=== PATIENT | male | born 1950 | race Caucasian/White ===

== ENCOUNTER 2022-11-24 15:41 | Emergency (ER) | payer MEDICARE, SELFPAY ==
[2022-11-24 15:44] VITALS: BMI 33.3
[2022-11-24 15:48] VITALS: BP 133/99; PULSE 99; TEMP 37.2; O2SAT 97
--- NOTE | 2022-11-24 16:34 | PC.NURSE ---
pt reports no pain presently while laying down, but pain returns when he tries to sit forward
[2022-11-24 17:47] LABS: Basophils Absolute Auto 0.1 10^3/uL (0.0-0.1); Basophils Percent Auto 0.8 % (0.2-2.0); Eosinophils Absolute Auto 0.1 10^3/uL (0.0-0.7); Eosinophils Percent Auto 1.1 % (0.9-7.0); Hematocrit 41.4 % (42.0-54.0); Hemoglobin 13.5 g/dL (14.0-18.0); Immature Granulocytes Abs Auto 0.03 10^3/uL (0.00-0.03); Immature Granulocytes Pct Auto 0.5 % (0.0-0.5); Lymphocytes Absolute Auto 0.8 10^3/uL (1.2-3.8); Lymphocytes Percent Auto 12.3 % (20.5-60.0); Mean Corpuscular HGB Conc 32.6 g/dL (29.9-35.2); Mean Corpuscular Volume 79.8 fL (80.0-94.0); Mean Platelet Volume 10.1 fL (9.5-13.5); Monocytes Absolute Auto 0.6 10^3/uL (0.3-0.8); Monocytes Percent Auto 9.5 % (1.7-12.0); Neutrophils Percent Auto 75.8 % (43.0-75.0); Platelet Count 207 10^3/uL (150-450); Red Blood Count 5.19 10^6/uL (4.70-6.10); Red Cell Distribution Width 14.6 % (11.0-15.0); White Blood Count 6.6 10^3/uL (4.0-11.0)
--- NOTE | 2022-11-24 17:54 | ED_ITS ---
Documented by User: Yanet Alcala 11/24/22 21:20 HPI - General Adult General Chief complaint: Nausea/Vomiting/Diarrhea Stated complaint: ABDOMINAL PAIN Time Seen by Provider: 11/24/22 17:54 Source: patient Mode of arrival: ambulance Limitations: no limitations History of Present Illness HPI narrative: 72 year old male presents to the ED for epigastric pain, nausea. Onset was yesterday. Denies fever, chills, injury, weakness, diarrhea. Denies urinary sx. Denies CP, cough, SOB. His sx have resolved. Denies pain currently. His last BM was yesterday. Location: Reports abdomen Radiation: Reports non-radiation Related Data Previous Rx's Medication Instructions Recorded cephalexin 500 mg capsule 500 mg PO BID 7 days #14 caps 11/24/22 ondansetron 4 mg disintegrating 4 mg PO Q8H PRN nausea and 11/24/22 tablet vomiting 4 days #10 tabs Allergies Allergy/AdvReac Type Severity Reaction Status Date / Time No Known Drug Allergies Allergy Verified 11/24/22 15:46 Review of Systems ROS Constitutional Denies: fever, chills or fatigue Ears, nose, mouth, and throat Denies: throat pain Cardiovascular Denies: chest pain Respiratory Denies: shortness of breath or cough Gastrointestinal Reports: abdominal pain; Denies: vomiting, diarrhea or constipation Genitourinary Denies: painful urination, urinary frequency, urinary urgency, blood in urine or difficulty urinating Integumentary/Breast Denies: rash or itching PFSH PFSH Medical History Exam Constitutional Vital Signs - 24 hr 11/24/22 15:48 11/24/22 19:12 Temperature 99 F 99 F Pulse Rate 99 H 95 H Respiratory Rate 20 Blood Pressure 133/99 H 129/89 H Pulse Oximetry 97 96 Common normals: no apparent distress and oriented x3 General appearance: cooperative, comfortable and well developed; not in distress and not ill appearing Respiratory Common normals: normal respiratory effort and clear to auscultation bilaterally Cardio Rhythm: regular rhythm GI Common normals: Normal to inspection, nondistended, normoactive bowel sounds present, soft to palpation and non-tender Inspection: normal to inspection and visible herniation (umbilical) Auscultation: normoactive bowel sounds Palpation: soft; not firm, non-tender, no guarding and not rigid Common normals: no CVA tenderness Bladder/kidney exam: no catheter in place Extremity Common normals: full ROM Neuro Common normals: oriented x3 Sensorium/orientation: awake and alert Skin Common normals: no rashes or lesions noted, no wounds, skin turgor normal and no jaundice Course Vital Signs Vital signs: Vital Signs Temperature 99 F 11/24/22 15:48 Pulse Rate 99 H 11/24/22 15:48 Blood Pressure 133/99 H 11/24/22 15:48 Pulse Oximetry 97 11/24/22 15:48 Temperature 99 F 11/24/22 19:12 Pulse Rate 95 H 11/24/22 19:12 Respiratory Rate 20 11/24/22 19:12 Blood Pressure 129/89 H 11/24/22 19:12 Pulse Oximetry 96 11/24/22 19:12 Medical Decision Making MDM Narrative Medical decision making narrative: He reported his abd pain and nausea had improved prior to coming to the ED. CBC, CMP, urinalysis, lipase were completed. Urinalysis showed infection; culture is pending. WBC count was 6.6, total bilirubin was 1.9. He was given IV antibiotics. CT scan of the abdomen was abnormal; findings were discussed with the patient and he was given a copy of his CT report. He is aware of the gallstones, kidney stones, hepatomegaly, adrenal lesions, renal lesion, umbilical hernia, and posterior osteophytes noted on the CT scan. Prescriptions were provided for Keflex and Zofran. He was anxious to be discharged home and r equested to be discharged while results were pending. His lipase was pending which he was aware was pending. He was encouraged to return at anytime for further evaluation and treatment or if his condition worsens. Follow up with pcp for a recheck, further evaluation and treatment. Lab Data Lab results reviewed: Yes I reviewed the patient's lab results Labs: Lab Results 11/24/22 11/24/22 11/24/22 Range/Units 14:20 16:20 17:35 WBC 6.6 (4.0-11.0) 10^3/uL RBC 5.19 (4.70-6.10) 10^6/uL Hgb 13.5 L (14.0-18.0) g/dL Hct 41.4 L (42.0-54.0) % MCV 79.8 L (80.0-94.0) fL MCH 26.0 (25.9-34.0) pg MCHC 32.6 (29.9-35.2) g/dL RDW 14.6 (11.0-15.0) % Plt Count 207 (150-450) 10^3/uL MPV 10.1 (9.5-13.5) fL Neut % (Auto) 75.8 H (43.0-75.0) % Lymph % (Auto) 12.3 L (20.5-60.0) % [place] % (Auto) 9.5 (1.7-12.0) % Eos % (Auto) 1.1 (0.9-7.0) % Baso % (Auto) 0.8 (0.2-2.0) % Neut # (Auto) 5.0 (1.4-6.5) 10^3/uL Lymph # (Auto) 0.8 L (1.2-3.8) 10^3/uL [place] # (Auto) 0.6 (0.3-0.8) 10^3/uL Eos # (Auto) 0.1 (0.0-0.7) 10^3/uL Baso # (Auto) 0.1 (0.0-0.1) 10^3/uL Sodium 132 L (136-145) mmol/L Potassium 4.2 (3.5-5.1) mmol/L Chloride 99 (98-107) mmol/L Carbon Dioxide 21.9 (21.0-32.0) mmol/L Anion Gap 15.3 BUN 21.0 H (7.0-18.0) mg/dL Creatinine 1.20 (0.70-1.30) mg/dL Est GFR ( Amer) >60 (>=60) Est GFR (Non-Af Amer) 60 (>=60) BUN/Creatinine Ratio 17.5 Glucose 105 (74-106) mg/dL Calcium 8.9 (8.5-10.1) mg/dL Total Bilirubin 1.9 H (0.2-1.0) mg/dL AST 64 H (15-37) U/L ALT 63 (16-63) U/L Total Protein 7.7 (6.4-8.2) g/dL Albumin 3.1 L (3.4-5.0) g/dL Globulin 4.6 g/dL Albumin/Globulin Ratio 0.7 Lipase 1093.0 H* (73.0-393.0) U/L Urine Color Brown A (YELLOW) Urine Clarity Clear (CLEAR) Urine pH 5.5 (5.0-9.0) Ur Specific [place] 1.020 (1.005-1.025) Urine Protein 30 A (NEG/TRACE) mg/dL Urine Glucose (UA) Negative (NEGATIVE) mg/dL Urine Ketones Negative (NEGATIVE) mg/dL Urine Occult Blood Moderate A (NEGATIVE) Urine Nitrite Positive A (NEGATIVE) Urine Bilirubin Negative (NEGATIVE) Urine Urobilinogen 2.0 A (0.2-1.0) EU/dL Ur Leukocyte Esterase Large A (NEGATIVE) Urine RBC 5-10 A (0-2) #/HPF Urine WBC >100 A (NONE SEEN) #/HPF Ur Squamous Epith Cells None seen (NONE/RARE) #/LPF Ur Culture Indicated? Yes Imaging Data CT scan - abdomen: Radiologist's impression: Procedure: CT abdomen pelvis wo con EXAM: CT SCAN OF THE ABDOMEN AND PELVIS WITHOUT IV CONTRAST DATE OF EXAM: 11/24/2022 6:58 PM EDT HISTORY: Pain in a 72-year-old male COMPARISON: None. TECHNIQUE: CT examination of the abdomen and pelvis with sagittal and coronal reformations was performed without intravenous contrast. CT dose lowering techniques were used, to include: automated exposure control, adjustment for patient size, and/or use of iterative reconstruction. CONTRAST: None. Note: The exam is limited because some types of pathology may not be adequately demonstrated due to lack of contrast enhancement. FINDINGS: Lower Chest: The heart measures upper limits of normal with radiopaque stents and coronary artery calcification. Free Air: None. Liver: The liver is enlarged. Evaluation limited due to lack of IV contrast. Gallbladder: The gallbladder appears to be bilobed. There are stones seen within the neck of the gallbladder. The superior fundus and/or phrygian cap is edematous. Common Bile Duct: Normal Pancreas: Normal Spleen: Normal Adrenal Glands: Right: There is a fat attenuating nodule with calcification seen involving the right adrenal gland that measures 39 x 41 mm. Left: Fat attenuating adrenal gland is seen involving the medial limb measuring 15 x 17 mm. Kidneys: Right Kidney: There is a fat attenuating mass seen within the cortex of the right kidney that measures approximately 8 mm. Right Ureter: Portions of the right ureter which are visualized measure within normal. Left Kidney: There are multiple stones seen in the lower pole of the left kidney with the largest measuring 15.6 mm. Left Ureter: There is an extrarenal pelvis. The mid to distal ureter measures within normal limits. GI Tract: Stomach: Decompressed Small Bowel: Normal Appendix: Normal on axial image 93 series 3 Large Bowel: Normal Mesentery/Peritoneum: Normal Vasculature: Normal Lymph Nodes: Normal Abdominal Wall: There is a fat filled umbilical hernia with abdominal wall defect which measures approximately 34 mm. The hernia itself measures 94.5 mm x 92.4 mm. Bladder: Decompressed Reproductive: Normal Musculoskeletal: Osseous structures demonstrate degenerative change with flowing syndesmophytes. There are posterior osteophytes which cause significant effacement of the spinal canal with further evaluation limited due to lack of IV contrast. Free Fluid: None. IMPRESSION: 1. Cholelithiasis within the neck of a bilobed gallbladder with the dome which is edematous seen best on axial image 38 of series 3 with pericholecystic free fluid in mild prominence of the gallbladder wall. However, if clinically indicated, RUQ ultrasound or nuclear medicine hepatobiliary scan would help better delineate for acute cholecystitis. 2. Large nonobstructing staghorn like calcifications within the left kidney with an extrarenal pelvis. 3. 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 4. Diverticulosis. No CT evidence for acute diverticulitis. 5. Hepatomegaly. Please correlate with patient's LFTs. 6. Bilateral adrenal gland adenomas with the one on the right measuring up to 41 mm. 7. Fat filled umbilical hernia 8. Posterior osteophytes which cause significant effacement of the spinal canal with further evaluation limited due to lack of IV contrast. This does not appear to be acute. However, if patient is complaining of any back pain, MRI would help better delineate to further characterize disc pathology and spinal canal pathology. Electronically authenticated by: JUAREZ LOMAS Date: 11/24/2022 20:28 Discharge Plan Discharge Chief Complaint: Nausea/Vomiting/Diarrhea Clinical Impression: Hernia, umbilical, Abnormal CT of the abdomen, Gallstones, Acute UTI (urinary tract infection), Abdominal pain, Hepatomegaly Patient Disposition: Home, Self-Care Time of Disposition Decision: 21:01 Condition: Good Mode of Transportation: Private Vehicle Prescriptions / Home Meds: New cephalexin 500 mg capsule 500 mg PO BID 7 Days Qty: 14 0RF ondansetron 4 mg tablet,disintegrating 4 mg PO Q8H PRN (Reason: nausea and vomiting) 4 Days Qty: 10 0RF Instructions: Gallstones (ED), Kidney Stones (ED), Urinary Tract Infection in Men (ED), Umbilical Hernia (ED), Acute Abdominal Pain (ED) Additional Instructions: Follow up with your family physician within the next few days for a recheck, further evaluation and treatment. If your condition worsens return to the ER for a recheck. Stand Alone Forms: Portal Instructions Referrals: Fabio Herrera MD [Primary Care Provider] - 11/27/22 Discharge Date/Time: 11/24/22 21:17 Documented by User: Kike Beard MD 11/28/22 20:45 HPI - General Adult General Chief complaint: Nausea/Vomiting/Diarrhea Stated complaint: ABDOMINAL PAIN Time Seen by Provider: 11/24/22 17:54 Related Data Previous Rx's Medication Instructions Recorded cephalexin 500 mg capsule 500 mg PO BID 7 days #14 caps 11/24/22 ondansetron 4 mg disintegrating 4 mg PO Q8H PRN nausea and 11/24/22 tablet vomiting 4 days #10 tabs Allergies Allergy/AdvReac Type Severity Reaction Status Date / Time No Known Drug Allergies Allergy Verified 11/24/22 15:46 PFSH PFSH Medical History Exam Constitutional Vital Signs - 24 hr 11/24/22 15:48 11/24/22 19:12 Temperature 99 F 99 F Pulse Rate 99 H 95 H Respiratory Rate 20 Blood Pressure 133/99 H 129/89 H Pulse Oximetry 97 96 Course Vital Signs Vital signs: Vital Signs Temperature 99 F 11/24/22 15:48 Pulse Rate 99 H 11/24/22 15:48 Blood Pressure 133/99 H 11/24/22 15:48 Pulse Oximetry 97 11/24/22 15:48 Temperature 99 F 11/24/22 19:12 Pulse Rate 95 H 11/24/22 19:12 Respiratory Rate 20 11/24/22 19:12 Blood Pressure 129/89 H 11/24/22 19:12 Pulse Oximetry 96 11/24/22 19:12 Medical Decision Making Lab Data Labs: Lab Results 11/24/22 11/24/22 11/24/22 Range/Units 14:20 16:20 17:35 WBC 6.6 (4.0-11.0) 10^3/uL RBC 5.19 (4.70-6.10) 10^6/uL Hgb 13.5 L (14.0-18.0) g/dL Hct 41.4 L (42.0-54.0) % MCV 79.8 L (80.0-94.0) fL MCH 26.0 (25.9-34.0) pg MCHC 32.6 (29.9-35.2) g/dL RDW 14.6 (11.0-15.0) % Plt Count 207 (150-450) 10^3/uL MPV 10.1 (9.5-13.5) fL Neut % (Auto) 75.8 H (43.0-75.0) % Lymph % (Auto) 12.3 L (20.5-60.0) % [place] % (Auto) 9.5 (1.7-12.0) % Eos % (Auto) 1.1 (0.9-7.0) % Baso % (Auto) 0.8 (0.2-2.0) % Neut # (Auto) 5.0 (1.4-6.5) 10^3/uL Lymph # (Auto) 0.8 L (1.2-3.8) 10^3/uL [place] # (Auto) 0.6 (0.3-0.8) 10^3/uL Eos # (Auto) 0.1 (0.0-0.7) 10^3/uL Baso # (Auto) 0.1 (0.0-0.1) 10^3/uL Sodium 132 L (136-145) mmol/L Potassium 4.2 (3.5-5.1) mmol/L Chloride 99 (98-107) mmol/L Carbon Dioxide 21.9 (21.0-32.0) mmol/L Anion Gap 15.3 BUN 21.0 H (7.0-18.0) mg/dL Creatinine 1.20 (0.70-1.30) mg/dL Est GFR ( Amer) >60 (>=60) Est GFR (Non-Af Amer) 60 (>=60) BUN/Creatinine Ratio 17.5 Glucose 105 (74-106) mg/dL Calcium 8.9 (8.5-10.1) mg/dL Total Bilirubin 1.9 H (0.2-1.0) mg/dL AST 64 H (15-37) U/L ALT 63 (16-63) U/L Total Protein 7.7 (6.4-8.2) g/dL Albumin 3.1 L (3.4-5.0) g/dL Globulin 4.6 g/dL Albumin/Globulin Ratio 0.7 Lipase 1093.0 H* (73.0-393.0) U/L Urine Color Brown A (YELLOW) Urine Clarity Clear (CLEAR) Urine pH 5.5 (5.0-9.0) Ur Specific [place] 1.020 (1.005-1.025) Urine Protein 30 A (NEG/TRACE) mg/dL Urine Glucose (UA) Negative (NEGATIVE) mg/dL Urine Ketones Negative (NEGATIVE) mg/dL Urine Occult Blood Moderate A (NEGATIVE) Urine Nitrite Positive A (NEGATIVE) Urine Bilirubin Negative (NEGATIVE) Urine Urobilinogen 2.0 A (0.2-1.0) EU/dL Ur Leukocyte Esterase Large A (NEGATIVE) Urine RBC 5-10 A (0-2) #/HPF Urine WBC >100 A (NONE SEEN) #/HPF Ur Squamous Epith Cells None seen (NONE/RARE) #/LPF Ur Culture Indicated? Yes Critical Care Time Critical Care Time Attestation: I, Dr Beard, have reviewed the above progress note and course of action in the ER; agree with the above. I have personally seen and evaluated this patient, gone over history and physical, and discussed disposition and treatment plan with the patient. Discharge Plan Discharge Chief Complaint: Nausea/Vomiting/Diarrhea Clinical Impression: Hernia, umbilical, Abnormal CT of the abdomen, Gallstones, Acute UTI (urinary tract infection), Abdominal pain, Hepatomegaly Patient Disposition: Home, Self-Care Time of Disposition Decision: 21:01 Condition: Good Mode of Transportation: Private Vehicle Prescriptions / Home Meds: New cephalexin 500 mg capsule 500 mg PO BID 7 Days Qty: 14 0RF ondansetron 4 mg tablet,disintegrating 4 mg PO Q8H PRN (Reason: nausea and vomiting) 4 Days Qty: 10 0RF Instructions: Gallstones (ED), Kidney Stones (ED), Urinary Tract Infection in Men (ED), Umbilical Hernia (ED), Acute Abdominal Pain (ED) Additional Instructions: Follow up with your family physician within the next few days for a recheck, further evaluation and treatment. If your condition worsens return to the ER for a recheck. Stand Alone Forms: Portal Instructions Referrals: Fabio Herrera MD [Primary Care Provider] - 11/27/22 Discharge Date/Time: 11/24/22 21:17
[2022-11-24 17:56] LABS: Alanine Aminotransferase 63 U/L (16-63); Albumin Globulin Ratio 0.7; Albumin Level 3.1 g/dL (3.4-5.0); Alkaline Phosphatase 123 U/L (46-116); Anion Gap 15.3; Aspartate Amino Transferase 64 U/L (15-37); BUN Creatinine Ratio 17.5; Bilirubin Total 1.9 mg/dL (0.2-1.0); Calcium 8.9 mg/dL (8.5-10.1); Carbon Dioxide 21.9 mmol/L (21.0-32.0); Chloride 99 mmol/L (98-107); Estimated GFR (African America >60 (>=60); Estimated GFR (Non-African Ame 60 (>=60); Globulin 4.6 g/dL; Glucose 105 mg/dL (74-106); Potassium 4.2 mmol/L (3.5-5.1); Sodium 132 mmol/L (136-145); Total Protein 7.7 g/dL (6.4-8.2)
[2022-11-24 18:12] LABS: Bilirubin Urine NEGATIVE (NEGATIVE); Blood Urine MODERATE (NEGATIVE); Clarity Urine CLEAR (CLEAR); Color Urine BROWN (YELLOW); Glucose Urine UA NEGATIVE (NEGATIVE); Ketones Urine NEGATIVE (NEGATIVE); Leukocyte Esterase Urine LARGE (NEGATIVE); Nitrite Urine POSITIVE (NEGATIVE); Protein Urine 30 mg/dL (NEG/TRACE); pH Urine 5.5 (5.0-9.0)
[2022-11-24 18:19] LABS: WBC Urine >100 #/HPF (NONE SEEN)
[2022-11-24 18:20] LABS: Bacteria Urine MODERATE #/HPF (NONE SEEN); Cast Seen? NONE SEEN #/LPF (NONE SEEN); Crystals Seen? None Seen #/HPF (None Seen); Mucus Urine NONE SEEN (NONE SEEN); Squamous Epithelial Cell Urine NONE SEEN #/LPF (NONE/RARE); Urine Culture Indicated YES
--- NOTE | 2022-11-24 18:42 | CT_ITS ---
The [address] [address] Patient Name: JOSE PETERS MRN: [id number] date: 1950 Sex: M Assigned Patient Location: ER Current Patient Location: .[facility] Accession/Order Number: [id number] Exam Date: 11/24/2022 18:58 Report Date: 11/24/2022 20:28 At the request of: JAMEY AMARO Procedure: CT abdomen pelvis wo con EXAM: CT SCAN OF THE ABDOMEN AND PELVIS WITHOUT IV CONTRAST DATE OF EXAM: 11/24/2022 6:58 PM EDT HISTORY: Pain in a 72-year-old male COMPARISON: None. TECHNIQUE: CT examination of the abdomen and pelvis with sagittal and coronal reformations was performed without intravenous contrast. CT dose lowering techniques were used, to include: automated exposure control, adjustment for patient size, and/or use of iterative reconstruction. CONTRAST: None. Note: The exam is limited because some types of pathology may not be adequately demonstrated due to lack of contrast enhancement. FINDINGS: Lower Chest: The heart measures upper limits of normal with radiopaque stents and coronary artery calcification. Free Air: None. Liver: The liver is enlarged. Evaluation limited due to lack of IV contrast. Gallbladder: The gallbladder appears to be bilobed. There are stones seen within the neck of the gallbladder. The superior fundus and/or phrygian cap is edematous. Common Bile Duct: Normal Pancreas: Normal Spleen: Normal Adrenal Glands: Right: There is a fat attenuating nodule with calcification seen involving the right adrenal gland that measures 39 x 41 mm. Left: Fat attenuating adrenal gland is seen involving the medial limb measuring 15 x 17 mm. Kidneys: Right Kidney: There is a fat attenuating mass seen within the cortex of the right kidney that measures approximately 8 mm. Right Ureter: Portions of the right ureter which are visualized measure within normal. Left Kidney: There are multiple stones seen in the lower pole of the left kidney with the largest measuring 15.6 mm. Left Ureter: There is an extrarenal pelvis. The mid to distal ureter measures within normal limits. GI Tract: Stomach: Decompressed Small Bowel: Normal Appendix: Normal on axial image 93 series 3 Large Bowel: Normal Mesentery/Peritoneum: Normal Vasculature: Normal Lymph Nodes: Normal Abdominal Wall: There is a fat filled umbilical hernia with abdominal wall defect which measures approximately 34 mm. The hernia itself measures 94.5 mm x 92.4 mm. Bladder: Decompressed Reproductive: Normal Musculoskeletal: Osseous structures demonstrate degenerative change with flowing syndesmophytes. There are posterior osteophytes which cause significant effacement of the spinal canal with further evaluation limited due to lack of IV contrast. Free Fluid: None. IMPRESSION: 1. Cholelithiasis within the neck of a bilobed gallbladder with the dome which is edematous seen best on axial image 38 of series 3 with pericholecystic free fluid in mild prominence of the gallbladder wall. However, if clinically indicated, RUQ ultrasound or nuclear medicine hepatobiliary scan would help better delineate for acute cholecystitis. 2. Large nonobstructing staghorn like calcifications within the left kidney with an extrarenal pelvis. 3. 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 4. Diverticulosis. No CT evidence for acute diverticulitis. 5. Hepatomegaly. Please correlate with patient's LFTs. 6. Bilateral adrenal gland adenomas with the one on the right measuring up to 41 mm. 7. Fat filled umbilical hernia 8. Posterior osteophytes which cause significant effacement of the spinal canal with further evaluation limited due to lack of IV contrast. This does not appear to be acute. However, if patient is complaining of any back pain, MRI would help better delineate to further characterize disc pathology and spinal canal pathology. Electronically authenticated by: JUAREZ LOMAS Date: 11/24/2022 20:28
[2022-11-24 19:12] VITALS: BP 129/89; PULSE 95; RESP 20; TEMP 37.2; O2SAT 96
[2022-11-24] MEDS: CEFTRIAXONE 1 MG in 0.9 % SODIUM CHLORIDE 50 ML 100 MG IV (20:15)
== END 2022-11-24 21:17 | disposition home or self-care (01) ==
PROVIDERS: Emergency Medicine; Nurse Practitioner Family; Emergency Provider Internal Medicine; PCP Family Medicine
DX: N39.0 Urinary tract infection, site not specified (principal); K42.9 Umbilical hernia without obstruction or gangrene; R10.9 Unspecified abdominal pain; R16.0 Hepatomegaly, not elsewhere classified; R93.5 Abnormal findings on diagnostic imaging of other abdominal regions, including retroperitoneum; K80.20 Calculus of gallbladder without cholecystitis without obstruction
CPT/HCPCS: 36415; 74176; 80053; 81001; 81003; 83690; 85025; 87086; 87150; 87186; 96365; 99285

== ENCOUNTER 2023-08-26 08:01 | Emergency (ER) | payer MEDICARE, SELFPAY ==
[2023-08-26] VITALS (28 sets, daily range): BP systolic 118–145; BP diastolic 74–112; PULSE 76–134; RESP 17–34; TEMP 36.7; O2SAT 90–98; BMI 38.3
--- NOTE | 2023-08-26 08:13 | ECG_ITS ---
The [facility] Test Date: 2023-08-26 Pat Name: JOSE PETERS Department: Room: - Gender: Male Spudder: : 1950 Requested By: HOLA VILLAFUERTE Order Number: [id number] Reading MD: HOLA VILLAFUERTE Measurements Intervals [place] Rate: 133 P: [id number] PA: -[id number] QRS: 270 QRSD: 76 T: 30 QT: 296 QTc: 374 Interpretive Statements 20844 Atrial fibrillation with rapid ventricular response 3633 Inferior myocardial infarction, probably old [id number] depression, probably digitalis effect 5120 Possible right ventricular hypertrophy 8003 Consistent with pulmonary disease 9150 abnormal ECG Compared to ECG 09/20/2022 08:40:45 ST (T wave) deviation now present Left-axis deviation no longer present Myocardial infarct finding still present Electronically Signed On 08-28-2023 5:57:17 EST by HOLA VILLAFUERTE
--- NOTE | 2023-08-26 08:32 | ED_ITS ---
HPI - Nausea/Vomiting/Diarrhea General Chief complaint: Nausea/Vomiting/Diarrhea Stated complaint: nausea and vomit Time Seen by Provider: 08/26/23 08:32 Source: patient Mode of arrival: walk-in Limitations: no limitations History of Present Illness HPI Narrative: Patient started with GI symptoms yesterday. He states he has had some much nausea and vomiting that he can take his medication. He is not running a fever at home that he is aware of. He has not seen blood in his stool or in the vomitus. Patient states that his brother had the exact same symptoms several days ago and he indeed was at his house. Prior to that time his brother got it from several other friends were visiting. This patient has not been on any antibiotics. He has no travel history. He has never had upper or lower endoscopy. He has not had fever shakes or chills. He had some runny nose sore throat before symptoms started but he says he always has those. He does not use alcoholic beverages or tobacco products. Related Data Previous Rx's Medication Instructions Recorded cephalexin 500 mg capsule 500 mg PO BID 7 days #14 caps 11/24/22 ondansetron 4 mg disintegrating 4 mg PO Q8H PRN nausea and 11/24/22 tablet vomiting 4 days #10 tabs Allergies Allergy/AdvReac Type Severity Reaction Status Date / Time No Known Drug Allergies Allergy Verified 08/26/23 08:45 [facility] Medical History Social History Smoking status: Never smoker Exam Narrative Exam Narrative: OA alert very no obvious distress. Pulse oximetry is 96%. His skin and integument are normal with no pallor no diaphoresis or clamminess. Lungs do not have any cough congestion or labored respiratory effort. He has no severe abdominal pain just the nausea and the diarrhea. He ambulates and neurological examination is normal. Constitutional Vital Signs, click to edit/add: Last Vital Signs Temp 98.1 F 08/26/23 08:07 Pulse 103 H 08/26/23 10:01 Resp 31 H 08/26/23 10:01 BP 121/81 08/26/23 10:01 Pulse Ox 96 08/26/23 10:01 O2 Del Method Room Air 08/26/23 08:19 Course Vital Signs Vital signs: Vital Signs Temperature 98.1 F 08/26/23 08:07 Pulse Rate 76 08/26/23 08:07 Respiratory Rate 18 08/26/23 08:07 Blood Pressure 123/101 H 08/26/23 08:07 Pulse Oximetry 94 L 08/26/23 08:07 Temperature 98.1 F 08/26/23 08:07 Pulse Rate 103 H 08/26/23 10:01 Respiratory Rate 31 H 08/26/23 10:01 Blood Pressure 121/81 08/26/23 10:01 Pulse Oximetry 96 08/26/23 10:01 Oxygen Delivery Method Room Air 08/26/23 08:19 MDM - Nausea/Vomiting/Diarrhea MDM Narrative Medical decision making narrative: Based on the patient's 6 episodes of diarrhea and fluid loss we will give him intravenous hydration, 2 L were given he tolerated very well. He has not had any more diarrhea while here in the emergency room. He feels substantially better. Lab Data Labs: Lab Results 08/26/23 08/26/23 Range/Units 08:15 08:53 WBC 8.1 (4.0-11.0) 10^3/uL RBC 5.78 (4.70-6.10) 10^6/uL Hgb 14.9 (14.0-18.0) g/dL Hct 47.4 (42.0-54.0) % MCV 82.0 (80.0-94.0) fL MCH 25.8 L (25.9-34.0) pg MCHC 31.4 (29.9-35.2) g/dL RDW 13.8 (11.0-15.0) % Plt Count 269 (150-450) 10^3/uL MPV 8.9 L (9.5-13.5) fL Neut % (Auto) 76.3 H (43.0-75.0) % Lymph % (Auto) 12.9 L (20.5-60.0) % [place] % (Auto) 8.0 (1.7-12.0) % Eos % (Auto) 1.7 (0.9-7.0) % Baso % (Auto) 0.7 (0.2-2.0) % Neut # (Auto) 6.2 (1.4-6.5) 10^3/uL Lymph # (Auto) 1.1 L (1.2-3.8) 10^3/uL [place]vier # (Auto) 0.7 (0.3-0.8) 10^3/uL Eos # (Auto) 0.1 (0.0-0.7) 10^3/uL Baso # (Auto) 0.1 (0.0-0.1) 10^3/uL Abs Immat Gran (auto) 0.03 (0.00-0.03) 10^3/uL Imm/Tot Granulo (auto) 0.4 (0.0-0.5) % Sodium 139 (136-145) mmol/L Potassium 3.8 (3.5-5.1) mmol/L Chloride 101 (98-107) mmol/L Carbon Dioxide 25.7 (21.0-32.0) mmol/L Anion Gap 16.1 BUN 20.0 H (7.0-18.0) mg/dL Creatinine 1.26 (0.70-1.30) mg/dL Est GFR ( Amer) >60 (>=60) Est GFR (Non-Af Amer) 56 L (>=60) BUN/Creatinine Ratio 15.9 Glucose 117 H (74-106) mg/dL Calcium 9.0 (8.5-10.1) mg/dL Total Bilirubin 1.8 H (0.2-1.0) mg/dL AST 32 (15-37) U/L ALT 24 (16-63) U/L Alkaline Phosphatase 87 (46-116) U/L Total Protein 8.3 H (6.4-8.2) g/dL Albumin 3.7 (3.4-5.0) g/dL Globulin 4.6 g/dL Albumin/Globulin Ratio 0.8 SARS-CoV-2 Ag (CV2AG) Negative (NEGATIVE) Discharge Plan Discharge Chief Complaint: Nausea/Vomiting/Diarrhea Clinical Impression: Gastroenteritis Patient Disposition: Home, Self-Care Time of Disposition Decision: 11:01 Prescriptions / Home Meds: No Action cephalexin 500 mg capsule 500 mg PO BID 7 Days Qty: 14 0RF ondansetron 4 mg tablet,disintegrating 4 mg PO Q8H PRN (Reason: nausea and vomiting) 4 Days Qty: 10 0RF Additional Instructions: May use 2 or 3 doses of Imodium for 2 days. Take clear fluids only for the next 24 hours then slowly advance diet. May use Zofran for nausea. Return if worse Referrals: Fabio Herrera MD [Primary Care Provider] - 1 week Stand Alone Forms: Portal Instructions
[2023-08-26] MEDS: 0.9 % SODIUM CHLORIDE 1,000 ML 999 ML IV (08:41)
[2023-08-26] MEDS: ONDANSETRON PF 4 MG/2 ML VIAL IV (08:41)
[2023-08-26 08:48] LABS: Basophils Absolute Auto 0.1 10^3/uL (0.0-0.1); Basophils Percent Auto 0.7 % (0.2-2.0); Eosinophils Absolute Auto 0.1 10^3/uL (0.0-0.7); Eosinophils Percent Auto 1.7 % (0.9-7.0); Hematocrit 47.4 % (42.0-54.0); Hemoglobin 14.9 g/dL (14.0-18.0); Immature Granulocytes Abs Auto 0.03 10^3/uL (0.00-0.03); Immature Granulocytes Pct Auto 0.4 % (0.0-0.5); Lymphocytes Absolute Auto 1.1 10^3/uL (1.2-3.8); Lymphocytes Percent Auto 12.9 % (20.5-60.0); Mean Corpuscular HGB Conc 31.4 g/dL (29.9-35.2); Mean Corpuscular Hemoglobin 25.8 pg (25.9-34.0); Mean Platelet Volume 8.9 fL (9.5-13.5); Monocytes Absolute Auto 0.7 10^3/uL (0.3-0.8); Neutrophils Absolute Auto 6.2 10^3/uL (1.4-6.5); Neutrophils Percent Auto 76.3 % (43.0-75.0); Platelet Count 269 10^3/uL (150-450); Red Blood Count 5.78 10^6/uL (4.70-6.10); Red Cell Distribution Width 13.8 % (11.0-15.0); White Blood Count 8.1 10^3/uL (4.0-11.0)
[2023-08-26 09:01] LABS: Alanine Aminotransferase 24 U/L (16-63); Albumin Globulin Ratio 0.8; Albumin Level 3.7 g/dL (3.4-5.0); Alkaline Phosphatase 87 U/L (46-116); Anion Gap 16.1; Aspartate Amino Transferase 32 U/L (15-37); BUN Creatinine Ratio 15.9; Bilirubin Total 1.8 mg/dL (0.2-1.0); Carbon Dioxide 25.7 mmol/L (21.0-32.0); Chloride 101 mmol/L (98-107); Estimated GFR (African America >60 (>=60); Estimated GFR (Non-African Ame 56 (>=60); Globulin 4.6 g/dL; Glucose 117 mg/dL (74-106); Potassium 3.8 mmol/L (3.5-5.1); Sodium 139 mmol/L (136-145); Total Protein 8.3 g/dL (6.4-8.2)
[2023-08-26 09:15] LABS: SARS-CoV-2 Ag NEGATIVE (NEGATIVE)
[2023-08-26] MEDS: 0.9 % SODIUM CHLORIDE 1,000 ML 1000 ML IV (09:38)
== END 2023-08-26 11:10 | disposition home or self-care (01) ==
PROVIDERS: Emergency Provider Emergency Medicine Emergency Medical Services; PCP Family Medicine
DX: K52.9 Noninfective gastroenteritis and colitis, unspecified (principal); Z20.822 Contact with and (suspected) exposure to COVID-19
CPT/HCPCS: 36415; 80053; 85025; 87811; 93005; 96361; 96374; 99285

== ENCOUNTER 2023-12-04 09:59 | Outpatient (OUT) | payer MEDICARE, SELFPAY ==
--- OUTSIDE RECORDS SUMMARY | 2023-12-04 10:23 | XMS_ITS | CCD ---
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 Role Phone Fabio Herrera Unavailable Unavailable Unavailable CHRISTO ., DR SIMENTAL Attending Unavailable HOY ., DR SIMENTAL Consulting Unavailable HOY ., DR SIMENTAL Primary Care Unavailable HOY ., DR SIMENTAL Admitting Unavailable BROWNSAROJ Consulting Unavailable DIAB ., JING Consulting Unavailable KARLIE, DR STIVEN Domingo Admitting Unavailabl e HOY ., DR SIMENTAL Primary Care Unavailable KARLIE, DR STIVEN Domingo Attending Unavailabl e REINECK, DR STIVEN Domingo Consulting Unavailabl e HAY ., DR MATTHEW Attending Unavailable HAY ., DR MATTHEW Admitting Unavailable HOY ., DR SIMENTAL Primary Care Unavailable HAY ., DR MATTHEW Attending Unavailable HAY ., DR MATTHEW Consulting Unavailable HAY ., DR MATTHEW Admitting Unavailable HOY ., DR SIMENTAL Primary Care Unavailable HOY ., DR SIMENTAL Attending Unavailable HOY ., DR SIMENTAL Consulting Unavailable HOY ., DR SIMENTAL Primary Care Unavailable HOY ., DR SIMENTAL Admitting Unavailable ZIDANA, DR ROHITH Archuleta Consulting Unavailable NADCL, DR NASEEM Singh Consulting Unavailable RADHA ., CRYSTAL Consulting Unavailable Johnathan Drake Referring Johnathan Horn Attending Dr. Fabio Matos Primary Care Unavail Dr. Fabio Casey Primary Care Unavail able Johnathan Drake Referring Unavailable Johnathan Drake Attending Unavailable Fabio Herrera MD Primary Care Provider 1( [phone] JOHNATHAN DRAKE Attending FABIO Matos Primary Care Unavailable JOHNATHAN DRAKE Referring Unavailable Medications Current Medications Medication Drug Class(es) Dates Sig (Normalized) Sig (Original) apixaban 5 mg oral tablet (10 sources) Factor Xa Inhibitor Start: 06-06-2023 End: 06-05-2024 take 1 tablet by mouth twice daily apixaban (Eliquis) 5 mg tablet Indications: Persistent atrial fibrillation (CMS/HCC) Take 1 tablet (5 mg) by mouth 2 times a day. 180 tablet 3 06/06/2023 06/05/2024 Active aspirin 81 mg delayed release oral tablet (7 sources) Platelet Aggregation Inhibitor, Nonsteroidal Anti-inflammatory Drug take 1 tablet by mouth two times weekly aspirin 81 mg EC tablet Take 1 tablet (81 mg) by mouth 2 times a week. 0 Active take 1 tablet by mouth once vickie y Aspirin EC 81 MG Oral Tablet Delayed Release TAKE 1 TABLET PO DAILY. Quantity: 0 Refills: 0 Ordered: 06-Oct-2021 DO Active atorvastatin 80 mg oral tablet (10 sources) HMG-CoA Reductase Inhibitor Start: 08-17-2020 End: 06-05-2024 take 1 tablet by mouth once daily at bedtime atorvastatin (Lipitor) 80 mg tablet Indications: Mixed hyperlipidemia Take 1 tablet (80 mg) by mouth once daily at bedtime. 90 tablet 3 06/06/2023 06/05/2024 Active famotidine 10 mg oral tablet (1 source) Histamine-2 Receptor Antagonist famotidine (Heartburn Relief, famotidine,) 10 mg tablet Take by mouth. 0 Active losartan potassium 25 mg oral tablet (4 sources) Angiotensin 2 Receptor Osiris Start: 05-10-2022 End: 06-05-2024 take 1 tablet by mouth once daily losartan (Cozaar) 25 mg tablet Indications: Primary hypertension Take 1 tablet (25 mg) by mouth once daily. 90 tablet 3 06/06/2023 06/05/2024 Active metoprolol tartrate 25 mg oral tablet (10 sources) beta-Adrenergic Osiris Start: 06-06-2023 End: 06-05-2024 take 0.5 tablet by mouth twice daily metoprolol tartrate (Lopressor) 25 mg tablet Indications: Persistent atrial fibrillation (CMS/HCC) Take 0.5 tablets (12.5 mg) by mouth 2 times a day. 90 tablet 3 06/06/2023 06/05/2024 Active take 1 tablet by mouth once vickie y Metoprolol Tartrate 25 MG Oral Tablet TAKE 1 TABLET PO DAILY. Quantity: 0 Refills: 0 Ordered: 06-Oct-2021 DO Active nitroglycerin 0.4 mg sublingual tablet (10 sources) Nitrate Vasodilator Start: 04-13-2021 End: 06-06-2023 nitroglycerin (Nitrostat) 0.[address] 1 tablet (0.4 mg) under the tongue every 5 minutes if needed. 0 04/13/2021 06/06/2023 Discontinued (Other) Completed/Discontinued Medications Medication Drug Class(es) Dates Sig (Normalized) Sig (Original) Anti-Diarrheal TABS (8 sources) Anti-Diarrheal T ABS TAKE PO NEEDED. Quantity: 0 Refills: 0 Ordered: 06-Oct-2021 DO Active Anti-Diarrheal T ABS TAKE NEEDED. Quantity: 0 Refills: 0 Ordered: 13-Apr-2021 DO Active clopidogrel 75 mg oral tablet (6 sources) P2Y12 Platelet Inhibitor take 1 tablet by mouth once daily Clopidogrel Bisulfate 75 MG Oral Tablet TAKE 1 TABLET PO DAILY. Quantity: 0 Refills: 0 Ordered: 06-Oct-2021 DO Active furosemide 40 mg oral tablet (3 sources) Loop Diuretic take 1 tablet by mouth once daily Furosemide 40 MG Oral Tablet TAKE 1 TABLET PO DAILY. Quantity: 90 Refills: 0 Ordered: 06-Oct-2021 DO Active Heartburn Relief TABS (8 sources) Heartburn Relief TABS Take tablet PO PRN Quantity: 0 Refills: 0 Ordered: 06-Oct-2021 DO Active Heartburn Relief TABS TAKE TABLET PRN Quantity: 0 Refills: 0 Ordered: 13-Apr-2021 DO Active lisinopril 5 mg oral tablet (3 sources) Angiotensin Converting Enzyme Inhibitor take 1 tablet by mouth once daily Lisinopril 5 MG Oral Tablet take 1 tablet po daily Quantity: 0 Refills: 0 Ordered: 06-Oct-2021 DO Active potassium chloride 10 meq extended release oral tablet (3 sources) take 1 tablet by mouth once daily at mealtime Potassium Chloride ER 10 MEQ Oral Tablet Extended Release TAKE 1 TABLET PO DAILY WITH FOOD. Quantity: 90 Refills: 2 Ordered: 06-Oct-2021 DO Active ticagrelor 90 mg oral tablet (3 sources) take 1 tablet by mouth twice daily Brilinta 90 MG Oral Tablet TAKE 1 TABLET PO twice DAILY. Quantity: 180 Refills: 1 Ordered: 06-Oct-2021 DO Active warfarin sodium 3 mg oral tablet (3 sources) Vitamin K Antagonist take 1 tablet by mouth once daily Warfarin Sodium 3 MG Oral Tablet TAKE 1 TABLET PO DAILY OR [facility] PER [facility] Quantity: 0 Refills: 0 Ordered: 06-Oct-2021 DO Active Problems Active Problems Problem Classification Problem Date Documented Date Episodic/Chronic Acute and unspecified renal failure (1 source) Acute kidney failure, unspecified; Translations: [ACUTE KIDNEY FAILURE UNSPECIFIED] Onset: 09-27-2022 Episodic Acute bronchitis (1 source) Acute bronchitis, unspecified; Translations: [ACUTE BRONCHITIS UNSPECIFIED] Onset: 09-27-2022 Episodic Calculus of urinary tract (2 sources) Personal history of urinary calculi; Translations: [Calculus of ureter] Onset: 12-13-2021 Episodic Cardiac dysrhythmias (20 sources) Paroxysmal atrial fibrillation; Translations: [Atrial fibrillation] Onset: 05-29-2022 Chronic Chronic kidney disease (1 source) Chronic kidney disease, stage 2 (mild); Translations: [CHRONIC KIDNEY DISEASE STAGE 2 MILD] Onset: 09-27-2022 Chronic Chronic obstructive pulmonary disease and bronchiectasis (2 sources) Chronic obstructive pulmonary disease with (acute) lower respiratory infection; Translations: [Chronic obstructive pulmonary disease with (acute) exacerbation] Onset: 05-29-2022 Chronic Congestive heart failure; nonhypertensive (1 source) Acute combined systolic (congestive) and diastolic (congestive) heart failure; Translations: [ACUTE COMB SYSTOLIC AND DIASTOLIC CHF] Onset: 09-27-2022 Chronic Coronary atherosclerosis and other heart disease (20 sources) Coronary atherosclerosis; Translations: [Coronary atherosclerosis of [place] coronary artery] Onset: 12-23-2021 06-06-2023 Chronic Coronary atherosclerosis and other heart disease (3 sources) Presence of coronary angioplasty implant and graft; Translations: [PRESENCE COR ANGPLSTY IMPLANT AND GRAFT] Onset: 12-13-2021 Episodic Disorders of lipid metabolism (18 sources) Mixed hyperlipidemia; Translations: [Mixed hyperlipidemia] Onset: 06-05-2023 06-06-2023 Chronic Essential hypertension (9 sources) Hypertensive disorder; Translations: [Unspecified essential hypertension] Onset: 06-05-2023 06-06-2023 Chronic Heart valve disorders (2 sources) Rheumatic mitral stenosis; Translations: [Mild mitral valve stenosis] Chronic Hyperplasia of prostate (1 source) Benign prostatic hyperplasia with lower urinary tract symptoms; Translations: [BENIGN PROSTATIC HYPERPLASIA W/LUTS] Onset: 09-27-2022 Chronic Other aftercare (9 sources) Drug therapy finding; Translations: [Long-term (current) use 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] Onset: 06-05-2023 06-05-2023 Episodic Other aftercare (1 source) 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; Translations: [FDC CURRNT USE ANTICOAGULANTS] Onset: 09-27-2022 Episodic Other lower respiratory disease (1 source) Acute respiratory distress; Translations: [ACUTE RESPIRATORY DISTRESS] Onset: 09-27-2022 Episodic Other nutritional; endocrine; and metabolic disorders (7 sources) Obesity; Translations: [Obesity, unspecified] Onset: 06-06-2023 06-06-2023 Chronic Other nutritional; endocrine; and metabolic disorders (3 sources) Body mass index 30+ - obesity; Translations: [Body Mass Index 38.0-38.9, adult] Chronic Other nutritional; endocrine; and metabolic disorders (2 sources) Body mass index 40+ - severely obese; Translations: [Morbid obesity] Chronic Other nutritional; endocrine; and metabolic disorders (1 source) Severe obesity; Translations: [Morbid (severe) obesity due to excess calories] 06-06-2023 Chronic Other nutritional; endocrine; and metabolic disorders (2 sources) Morbid (severe) obesity due to excess calories; Translations: [Morbid (severe) obesity due to excess calories (CMS/HCC)] Onset: 06-06-2023 Chronic Other nutritional; endocrine; and metabolic disorders (2 sources) Body mass index (BMI) 40.0-44.9, adult; Translations: [Body mass index (BMI) 40.0-44.9, adult (CMS/HCC)] Onset: 06-06-2023 Chronic Other screening for suspected conditions (not mental disorders or infectious disease) (7 sources) Echocardiogram abnormal; Translations: [Nonspecific (abnormal) findings on radiological and other examination of other intrathoracic organs] Onset: 06-05-2023 06-05-2023 Episodic Parkinson`s disease (1 source) Parkinson's disease; Translations: [PARKINSONS DISEASE] Onset: 09-27-2022 Chronic Unclassified (1 source) CONTACT W/AND (SUSP) EXPOS COVID-19; Translations: [CONTACT W/AND (SUSP) EXPOS COVID-19] Onset: 05-29-2022 Unclassified (2 sources) Other persistent atrial fibrillation; Translations: [Other persistent atrial fibrillation (CMS/HCC)] Onset: 06-05-2023 Urinary tract infections (1 source) Urinary tract infection, site not specified; Translations: [UTI SITE NOT SPECIFIED] Onset: 09-27-2022 Episodic Past or Other Problems Problem Classification Problem Date Documented Da te Episodic/Chronic Cardiac dysrhythmias (5 sources) Palpitations; Translations: [PALPITATIONS] Onset: 12-13-2021 Episodic Other aftercare (1 source) 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; Translations: [OTH FDC CURRENT DRUG THERAPY] Onset: 05-29-2022 Episodic Other lower respiratory disease (3 sources) Shortness of breath; Translations: [SHORTNESS OF BREATH] Onset: 05-17-2022 Episodic Residual codes; unclassified (4 sources) Procedure and treatment not carried out due to patient leaving prior to being seen by health care provider; Translations: [PROC AND TX NOT CARRIED OUT PT LEAVE] Onset: 06-19-2022 Episodic Respiratory failure; insufficiency; arrest (adult) (1 source) Acute respiratory failure with hypoxia; Translations: [ACUTE RESPIRATORY FAIL W/HYPOXIA] Onset: 05-29-2022 Episodic Septicemia (except in labor) (1 source) Sepsis, unspecified organism; Translations: [SEPSIS UNSPECIFIED ORGANISM] Onset: 05-29-2022 Episodic Unclassified (8 sources) Never smoked tobacco; Translations: [Never a smoker] Unclassified (1 source) Onset: 06-06-2023 06-06-2023 Results Test Name Value Interpretation Reference Range Facility ECG 12 Leadon 06-06-2023 Atrial fibrillation, left axis deviation, possible inferior TX unknown age, abnormal ECG [facility] Work Phone: Office Visit (Cardiology)on 11-29-2022 Follow-up visit Diagnoses/Problems Assessed Coronary artery disease involving [place] coronary artery of [place] heart without angina pectoris (414.01) (I25.10) August 16, 2020 pLAD PCI/Mike 3/26mm mLAD PCI/Mike 2.75/22mm pRCA PCI/[place] 3/38mm mPLV PCI/Mike 2/22mm CX 25%. Current daily activity 4 METS without concerning symptoms or nitroglycerin usage. Anticoagulated (V58.61) (Z79.01) CHADS VASc 4 anticoagulated on Eliquis with age 72, weight 242, Cr 1.1 Mixed hyperlipidemia (272.2) (E78.2) High intensity statin August 2022 ALT 26, AST 29 Is due for lipid profile HTN (hypertension) (401.9) (I10) optimal in office Ischemic cardiomyopathy (414.8) (I25.5) Ischemic heart failure with improved ejection fraction LVEF 55% August 2022 echo (prior 45 to 50% July 2020 echo) Chronic atrial fibrillation (427.31) (I48.20) Initial diagnosis October 2020 Holter He remains asymptomatic with treatment strategy rate control and anticoagulation No prior antiarrhythmic Morbid obesity with BMI of 40.0-44.9, adult (278.01,V85.41) (E66.01,Z68.41) Orders Coronary artery disease involving [place] coronary artery of [place] heart without angina pectoris Start: Nitroglycerin 0.4 MG Sublingual Tablet Sublingual; DISSOLVE 1 TABLET UNDER THE TONGUE NEEDED FOR CHEST PAIN Coronary artery disease involving [place] coronary artery of [place] heart without angina pectoris, HTN (hypertension), Mixed hyperlipidemia ALT - Alanine Aminotransferase, Serum; Status:Active; Requested for:29Nov2022; AST; Status:Active; Requested for:29Nov2022; Lipid Panel; Status:Active; Requested for:29Nov2022; Morbid obesity with BMI of 40.0-44.9, adult Healthy Weight Tips; Status:Complete; Done: 30Nov2022 Patient Instructions Please bring all medicines, vitamins, and herbal supplements with you when you come to the office. Prescriptions will not be filled unless you are compliant with your follow up appointments or have a follow up appointment scheduled as per instruction of your physician. Refills should be requested at the time of your visit. PLAN: Through informed decision making process incorporating patients unique circumstances, the following treatment plan will be initiated: 1. Prescription drug management of cardiovascular medication for efficacy, adherence to treatment, side effect assessment and polypharmacy. Current treatment clinically warranted and to continue with following modifications: 2. Labs (lipids/AST/ALT) 3. Return for follow-up; in the interim, contact the office if new symptoms arise. Dr. Drake 6 months Discussed the dynamic nature of coronary artery disease and the importance of seeking medical attention if new symptoms arise. Chief Complaint Routine f/u: 'doing fine' LINO PEÑA is being seen for a 6 month follow-up of atrial fibrillation, coronary artery disease, dyslipidemia and hypertension. Patient presents to the office ambulatory with steady gait. Last evaluated in clinic Dr. Drake April 2022. At that time, patient presented off all cardiovascular medication and losartan, Eliquis, Lopressor and Lipitor were resumed. Patient reports a August 2022 hospitalization due to pneumonia and COPD, was not followed by [facility] cardiology. He reports being told he was in atrial fibrillation throughout the hospitalization and was discharged 'when heart rates were better'. There were no changes to cardiovascular regimen at time of discharge. Patient continues to work full-time at [employer]. He denies any type of routine exercise. He had no complaints ambulating in from the parking lot. He is unable to recall his prior PCI symptoms. He denies any change in exercise capacity or functional tolerance. He reports very rare palpitations. Reports compliance with treatment. At this time, patient with chronic atrial fibrillation with treatment strategy of rate control and anticoagulation. Heart rate is optimal on current dose of Lopressor. Overall patient is pleased with current state of cardiovascular health. At this time there are no indications for additional cardiovascular testing or need for medication changes. History of Present Illness The patient states he has been generally doing well since the last visit. Comorbid Illnesses: hypertension and hyperlipidemia. Symptoms: denies chest pain at rest, denies exertional chest pain, denies dyspnea, stable fatigue, denies exercise intolerance, denies palpitations, denies edema, denies orthopnea, denies dizziness and denies orthostatic dizziness. Associated symptoms: no syncope. His symptoms do not limit his activities. Disease Monitoring: The patient has had a weight loss. Medications: the patient is adherent with his medication regimen. He denies medication side effects. Current Meds Medication NameInstruction Anti-Diarrheal TABSTAKE PO NEEDED. Aspirin EC 81 MG TBECTake one tablet twice weekly Atorvastatin Calcium 80 MG Oral Tablettake 1 tablet by mouth every evening Eliquis (more content not included)... Normal SeeWhy Tobacco Screening.on 023 Adult depression screening assessment No [facility] 250 DO Work Phone: Fall risk assessment a) No falls within the last year [facility] 250 DO Work Phone: Tobacco use status CP b) No -[facility] DO Work Phone: BNPon 09-22-2022 Natriuretic peptide B (Bld) [Mass/Vol] 381.0 pg/mL Normal <=900.0 [facility] Comment on above: Performed By: #### T 4, MG #### [facility] [address] [place] [address] Dr. Leona Garcia CBC AUTO DIFFon 09-22-2022 BASO # 0.1 103/ul Normal 0.0-0.1 [facility] Comment on above: Performed By: #### H STROPN, BMP #### [facility] [address] [place] [address] Dr. Leona Garcia Basophils/100 WBC (Bld) 0.7 % Normal 0.2-2.0 [facility] Comment on above: Performed By: #### H STROPN, BMP #### [facility] [address] [place] [address] Dr. Leona Garcia EO # 0.2 103/ul Normal 0.0-0.7 [facility] Comment on above: Performed By: #### H STROPN, BMP #### [facility] [address] [place] [address] Dr. Leona Garcia Eosinophils/100 WBC (Bld) 2.7 % Normal 0.9-7.0 [facility] Comment on above: Performed By: #### H STROPN, BMP #### [facility] [address] [place] [address] Dr. Leona Garcia Erythrocyte distribution width (RBC) [Ratio] 14.0 % Normal 11.0-15.0 [facility] Comment on above: Performed By: #### H STROPN, BMP #### [facility] [address] [place] [address] Dr. Leona Garcia Hematocrit (Bld) [Volume fraction] 41.9 % Critically low 42.0-54.0 [facility] Comment on above: Performed By: #### H STROPN, BMP #### [facility] [address] [address] [address] Leona Garcia Hemoglobin (Bld) [Mass/Vol] 13.6 g/dL Critically low 14.0-18.0 [facility] Comment on above: Performed By: #### H STROPN, BMP #### [facility] [address] [address] [address] Leona Garcia IG # 0.03 10e3/ul Normal 0.00-0.03 [facility] Comment on above: Performed By: #### H STROPN, BMP #### [facility] [address] [address] [address] Leona Garcia IG % 0.4 % Normal 0.0-0.5 [facility] Comment on above: Performed By: #### H STROPN, BMP #### [facility] [address] [place] [address] Dr. Leona Garcia LYMPH # 1.6 103/ul Normal 1.2-3.8 [facility] Comment on above: Performed By: #### H STROPN, BMP #### [facility] [address] [address] [address] Leona Garcia Lymphocytes/100 WBC (Bld) 19.5 % Critically low 20.5-60.0 [facility] Comment on above: Performed By: #### H STROPN, BMP #### [facility] [address] [place] [address] Dr. Leona Garcia MANUAL DIFF REQ NO Normal [facility] Comment on above: Performed By: #### H STROPN, BMP #### [facility] [address] [address] [address] Leona Garcia MCH (RBC) [Entitic mass] 25.4 pg Critically low 25.9-34.0 [facility] Comment on above: Performed By: #### H STROPN, BMP #### [facility] [address] [place] [address] Dr. Leona Garcia MCHC (RBC) [Mass/Vol] 32.5 g/dL Normal 29.9-35.2 [facility] Comment on above: Performed By: #### H STROPN, BMP #### [facility] [address] [place] [address] Dr. Leona Garcia MCV (RBC) [Entitic vol] 78.2 fL Critically low 80.0-94.0 [facility] Comment on above: Performed By: #### H STROPN, BMP #### [facility] [address] [place] [address] Dr. Lenoa Garcia MONO # 0.8 103/ul Normal 0.3-0.8 [facility] Comment on above: Performed By: #### H STROPN, BMP #### [facility] [address] [place] [address] Dr. Leona Garcia Monocytes/100 WBC (Bld) 9.5 % Normal 1.7-12.0 [facility] Comment on above: Performed By: #### H STROPN, BMP #### [facility] [address] [place] [address] Dr. Leona Garcia NEUT # 5.4 103/ul Normal 1.4-6.5 [facility] Comment on above: Performed By: #### H STROPN, BMP #### [facility] [address] [place] [address] Dr. Leona Garcia Neutrophils/100 WBC (Bld) 67.2 % Normal 43.0-75.0 [facility] Comment on above: Performed By: #### H STROPN, BMP #### [facility] [address] [place] [address] Dr. Leona Garcia Platelet mean volume (Bld) [Entitic vol] 9.3 fL Critically low 9.5-13.5 [facility] Comment on above: Performed By: #### H STROPN, BMP #### [facility] [address] [place] [address] Dr. Leona Garcia PLT 223 103/ul Normal 150-450 [facility] Comment on above: Performed By: #### H STROPN, BMP #### [facility] [address] [place] [address] Dr. Leona Garcia RBC 5.36 106/ul Normal 4.70-6.10 [facility] Comment on above: Performed By: #### H HERVE, BMP #### [facility] [address] [place] [address] Dr. Leona Garcia WBC 8.1 103/ul Normal 4.0-11.0 [facility] Comment on above: Performed By: #### H HERVE, BMP #### [facility] [address] [place] [address] Dr. Leona Garcia PROF 14(COMP METB)on 023 Albumin [Mass/Vol] 3.4 g/dL Normal 3.4-5.0 [facility] Comment on above: Performed By: #### T 4, MG #### [facility] [address] [place] [address] Dr. Leona Garcia Albumin/Globulin [Mass ratio] 0.9 {ratio} Normal [facility] Comment on above: Performed By: #### T 4, MG #### [facility] [address] [place] [address] Dr. Leona Garcia ALP [Catalytic activity/Vol] 68 U/L Normal 46-116 [facility] Comment on above: Performed By: #### T 4, MG #### [facility] Laboratory [address] [place] [address] Dr. Leona Garcia ALT [Catalytic activity/Vol] 26 U/L Normal 16-63 [facility] Comment on above: Performed By: #### T 4, MG #### [facility] Laboratory [address] [place] [address] Dr. Leona Garcia Anion gap [Moles/Vol] 14.5 mmol/L Normal [facility] Comment on above: Performed By: #### T 4, MG #### [facility] Laboratory [address] [place] [address] Dr. Leona Garcia AST [Catalytic activity/Vol] 29 U/L Normal 15-37 [facility] Comment on above: Performed By: #### T 4, MG #### [facility] Laboratory [address] [place] [address] Dr. Leona Garcia Bilirubin [Mass/Vol] 0.9 mg/dL Normal 0.2-1.0 [facility] Comment on above: Performed By: #### T 4, MG #### [facility] Laboratory [address] [place] [address] Dr. Leona Garcia Calcium [Mass/Vol] 9.1 mg/dL Normal 8.5-10.1 [facility] Comment on above: Performed By: #### T 4, MG #### [facility] [address] [place] [address] Dr. Leona Garcia Chloride [Moles/Vol] 102 mmol/L Normal 98-107 [facility] Comment on above: Performed By: #### T 4, MG #### [facility] [address] [place] [address] Dr. Leona Garcia CO2 [Moles/Vol] 24.9 mmol/L Normal 21.0-32.0 [facility] Comment on above: Performed By: #### T 4, MG #### [facility] [address] [place] [address] Dr. Leona Garcia Creatinine [Mass/Vol] 1.18 mg/dL Normal 0.70-1.30 [facility] Comment on above: Performed By: #### T 4, MG #### [facility] [address] [place] [address] Dr. Leona Garcia EGFR-AF CITIZ[place] >60 Normal >=60 [facility] Comment on above: Performed By: #### T 4, MG #### [facility] [address] [place] [address] Dr. Leona Garcia EGFR-NON AF CITIZEN OF [place] >60 Normal >=60 [facility] Comment on above: Performed By: #### T 4, MG #### [facility] [address] [place] [address] Dr. Leona Garcia Globulin (S) [Mass/Vol] 3.9 g/dL Normal [facility] Comment on above: Performed By: #### T 4, MG #### [facility] [address] [place] [address] Dr. Leona Garcia Glucose [Mass/Vol] 105 mg/dL Normal 74-106 [facility] Comment on above: Performed By: #### T 4, MG #### [facility] [address] [place] [address] Dr. Leona Garcia Potassium [Moles/Vol] 3.4 mmol/L Critically low 3.5-5.1 [facility] Comment on above: Performed By: #### T 4, MG #### [facility] [address] [place] [address] Dr. Leona Garcia Protein [Mass/Vol] 7.3 g/dL Normal 6.4-8.2 [facility] Comment on above: Performed By: #### T 4, MG #### [facility] [address] [place] [address] Dr. Leona Garcia Sodium [Moles/Vol] 138 mmol/L Normal 136-145 [facility] Comment on above: Performed By: #### T 4, MG #### [facility] [address] [place] [address] Dr. Leona Garcia Urea nitrogen [Mass/Vol] 25.0 mg/dL Critically high 7.0-18.0 [facility] Comment on above: Performed By: #### T 4, MG #### [facility] [address] [place] [address] Dr. Leona Garcia Urea nitrogen/Creatinine [Mass ratio] 21.2 mg/mg Normal [facility] Comment on above: Performed By: #### T 4, MG #### [facility] [address] [place] [address] Dr. Leona Garcia BNPon 09-21-2022 Natriuretic peptide B (Bld) [Mass/Vol] 635.0 pg/mL Normal <=900.0 [facility] Comment on above: Performed By: #### H STROPN, BMP #### [facility] [address] [place] [address] Dr. Leona Garcia CBC AUTO DIFFon 09-21-2022 BASO # 0.1 103/ul Normal 0.0-0.1 [facility] Comment on above: Performed By: #### T 4, MG #### [facility] [address] [place] [address] Dr. Leona Garcia Basophils/100 WBC (Bld) 0.6 % Normal 0.2-2.0 [facility] Comment on above: Performed By: #### T 4, MG #### [facility] [address] [place] [address] Dr. Leona Garcia EO # 0.1 103/ul Normal 0.0-0.7 [facility] Comment on above: Performed By: #### T 4, MG #### [facility] [address] [place] [address] Dr. Leona Garcia Eosinophils/100 WBC (Bld) 0.9 % Normal 0.9-7.0 [facility] Comment on above: Performed By: #### T 4, MG #### [facility] [address] [place] [address] Dr. Leona Garcia Erythrocyte distribution width (RBC) [Ratio] 14.3 % Normal 11.0-15.0 [facility] Comment on above: Performed By: #### T 4, MG #### [facility] [address] [place] [address] Dr. Leona Garcia Hematocrit (Bld) [Volume fraction] 44.1 % Normal 42.0-54.0 [facility] Comment on above: Performed By: #### T 4, MG #### [facility] [address] [place] [address] Dr. Leona Garcia Hemoglobin (Bld) [Mass/Vol] 14.2 g/dL Normal 14.0-18.0 [facility] Comment on above: Performed By: #### T 4, MG #### [facility] [address] [place] [address] Dr. Leona Garcia IG # 0.03 10e3/ul Normal 0.00-0.03 [facility] Comment on above: Performed By: #### T 4, MG #### [facility] [address] [place] [address] Dr. Leona Garcia IG % 0.3 % Normal 0.0-0.5 [facility] Comment on above: Performed By: #### T 4, MG #### [facility] [address] [address] [address] Leona Garcia LYMPH # 1.4 103/ul Normal 1.2-3.8 [facility] Comment on above: Performed By: #### T 4, MG #### [facility] [address] [address] [address] Leona Garcia Lymphocytes/100 WBC (Bld) 15.6 % Critically low 20.5-60.0 [facility] Comment on above: Performed By: #### T 4, MG #### [facility] [address] [address] [address] Leona Garcia MANUAL DIFF REQ NO Normal [facility] Comment on above: Performed By: #### T 4, MG #### [facility] [address] [place] [address] Dr. Leona Garcia MCH (RBC) [Entitic mass] 25.5 pg Critically low 25.9-34.0 [facility] Comment on above: Performed By: #### T 4, MG #### [facility] [address] [place] [address] Dr. Leona Garcia MCHC (RBC) [Mass/Vol] 32.2 g/dL Normal 29.9-35.2 [facility] Comment on above: Performed By: #### T 4, MG #### [facility] [address] [place] [address] Dr. Leona Garcia MCV (RBC) [Entitic vol] 79.3 fL Critically low 80.0-94.0 [facility] Comment on above: Performed By: #### T 4, MG #### [facility] [address] [address] [address] Leona Garcia MONO # 0.8 103/ul Normal 0.3-0.8 [facility] Comment on above: Performed By: #### T 4, MG #### [facility] [address] [place] [address] Dr. Leona Garcia Monocytes/100 WBC (Bld) 9.3 % Normal 1.7-12.0 [facility] Comment on above: Performed By: #### T 4, MG #### [facility] [address] [place] [address] Dr. Leona Garcia NEUT # 6.4 103/ul Normal 1.4-6.5 [facility] Comment on above: Performed By: #### T 4, MG #### [facility] [address] [place] [address] Dr. Leona Garcia Neutrophils/100 WBC (Bld) 73.3 % Normal 43.0-75.0 [facility] Comment on above: Performed By: #### T 4, MG #### [facility] [address] [place] [address] Dr. Leona Garcia Platelet mean volume (Bld) [Entitic vol] 9.0 fL Critically low 9.5-13.5 [facility] Comment on above: Performed By: #### T 4, MG #### [facility] [address] [place] [address] Dr. Leona Garcia PLT 197 103/ul Normal 150-450 [facility] Comment on above: Performed By: #### T 4, MG #### [facility] [address] [place] [address] Dr. Leona Garcia RBC 5.56 106/ul Normal 4.70-6.10 [facility] Comment on above: Performed By: #### T 4, MG #### [facility] [address] [place] [address] Dr. Leona Garcia WBC 8.8 103/ul Normal 4.0-11.0 [facility] Comment on above: Performed By: #### T 4, MG #### [facility] [address] [place] [address] Dr. Leona Garcia PROF 14(COMP METB)on 023 Albumin [Mass/Vol] 3.4 g/dL Normal 3.4-5.0 [facility] Comment on above: Performed By: #### H STROPN, BMP #### [facility] [address] [place] [address] Dr. Leona Garcia Albumin/Globulin [Mass ratio] 0.8 {ratio} Normal [facility] Comment on above: Performed By: #### H STROPN, BMP #### [facility] [address] [place] [address] Dr. Leona Garcia ALP [Catalytic activity/Vol] 73 U/L Normal 46-116 [facility] Comment on above: Performed By: #### H STROPN, BMP #### [facility] [address] [address] [address] Leona Garcia ALT [Catalytic activity/Vol] 18 U/L Normal 16-63 [facility] Comment on above: Performed By: #### H STROPN, BMP #### [facility] [address] [place] [address] Dr. Leona Garcia Anion gap [Moles/Vol] 17.0 mmol/L Normal [facility] Comment on above: Performed By: #### H STROPN, BMP #### [facility] [address] [place] [address] Dr. Leona Garcia AST [Catalytic activity/Vol] 23 U/L Normal 15-37 [facility] Comment on above: Performed By: #### H STROPN, BMP #### [facility] [address] [place] [address] Dr. Leona Garcia Bilirubin [Mass/Vol] 1.0 mg/dL Normal 0.2-1.0 [facility] Comment on above: Performed By: #### H STROPN, BMP #### [facility] [address] [place] [address] Dr. Leona Garcia Calcium [Mass/Vol] 9.1 mg/dL Normal 8.5-10.1 [facility] Comment on above: Performed By: #### H STROPN, BMP #### [facility] [address] [place] [address] Dr. Leona Garcia Chloride [Moles/Vol] 102 mmol/L Normal 98-107 [facility] Comment on above: Performed By: #### H STROPN, BMP #### [facility] [address] [place] [address] Dr. Leona Garcia CO2 [Moles/Vol] 21.7 mmol/L Normal 21.0-32.0 [facility] Comment on above: Performed By: #### H STROPN, BMP #### [facility] [address] [place] [address] Dr. Leona Garcia Creatinine [Mass/Vol] 1.42 mg/dL Critically high 0.70-1.30 [facility] Comment on above: Performed By: #### H STROPN, BMP #### [facility] [address] [place] [address] Dr. Leona Garcia EGFR-AF [place]IZ[place] 60 mL/min/1.73m2 Normal >=60 [facility] Comment on above: Performed By: #### H STROPN, BMP #### [facility] [address] [place] [address] Dr. Leona Garcia EGFR-NON AF CITIZEN [place] 49 mL/min/1.73m2 Critically low >=60 [facility] Comment on above: Performed By: #### H STROPN, BMP #### [facility] [address] [place] [address] Dr. Leona Garcia Globulin (S) [Mass/Vol] 4.2 g/dL Normal [facility] Comment on above: Performed By: #### H STROPN, BMP #### [facility] [address] [place] [address] Dr. Leona Garcia Glucose [Mass/Vol] 135 mg/dL Critically high 74-[address] [facility] Comment on above: Performed By: #### H STROPN, BMP #### [facility] [address] [place] [address] Dr. Leona Garcia Potassium [Moles/Vol] 3.7 mmol/L Normal 3.5-5.1 [facility] Comment on above: Performed By: #### H STROPN, BMP #### [facility] [address] [place] [address] Dr. Leona Garcia Protein [Mass/Vol] 7.6 g/dL Normal 6.4-8.2 [facility] Comment on above: Performed By: #### H STROPN, BMP #### [facility] [address] [place] [address] Dr. Leona Garcia Sodium [Moles/Vol] 137 mmol/L Normal 136-145 [facility] Comment on above: Performed By: #### H STROPN, BMP #### [facility] [address] [place] [address] Dr. Leona Garcia Urea nitrogen [Mass/Vol] 24.0 mg/dL Critically high 7.0-18.0 [facility] Comment on above: Performed By: #### H STROPN, BMP #### [facility] [address] [place] [address] Dr. Leona Garcia Urea nitrogen/Creatinine [Mass ratio] 16.9 mg/mg Normal [facility] Comment on above: Performed By: #### H STROPN, BMP #### [facility] [address] [place] [address] Dr. Leona Garcia T3, TOTAL (TRIIODOTHYRONINE) on 09-21-2022 T3, TOTAL 79 ng/dL Normal 71-180 [facility] Comment on above: Performed By: #### T 4, MG #### [facility] [address] [place] [address] Dr. Leona Garcia BNPon 09-20-2022 Natriuretic peptide B (Bld) [Mass/Vol] 1249.0 pg/mL Critically high <=900.0 [facility] Comment on above: Performed By: #### H STROPN, BMP #### [facility] [address] [place] [address] Dr. Leona Garcia CARDIAC HARSHIL ADMITon 023 CK [Catalytic activity/Vol] 219 U/L Normal 39-308 [facility] Comment on above: Performed By: #### H STROPN, BMP #### [facility] [address] [place] [address] Dr. Leona Garcia CK.MB [Mass/Vol] ng/mL Normal <=3.60 [facility] Comment on above: Performed By: #### H STROPN, BMP #### [facility] [address] [place] [address] Dr. Leona Garcia HSTROP 18.6 pg/mL Normal 4.0-76.1 [facility] Comment on above: Result Comment: CUT- OFF POINTS HAVE BEEN ESTABLISHED BASED ON THE FOURTH UNIVERSAL DEFINITIONS OF MYOCARDIAL INFARCTION. THE UPPER REFERENCE LIMIT (URL) OF TROPONIN, DEFINED THE 99TH PERCENTILE OF cTnI DISTRIBUTION IN A REFERENCE POPULATION, HAS BEEN CONFIRMED THE DECISION THRESHOLD FOR TX DIAGNOSIS. Performed By: #### H STROPN, BMP #### [facility] [address] [place] [address] Dr. Leona Garcia JIGNA 142 ng/mL Critically high 16-96 [facility] Comment on above: Performed By: #### H STROPN, BMP #### [facility] [address] [place] [address] Dr. Leona Garcia CBC AUTO DIFFon 09-20-2022 BASO # 0.1 103/ul Normal 0.0-0.1 [facility] Comment on above: Performed By: #### T 4, MG #### [facility] [address] [place] [address] Dr. Leona Garcia Basophils/100 WBC (Bld) 0.6 % Normal 0.2-2.0 [facility] Comment on above: Performed By: #### T 4, MG #### [facility] [address] [place] [address] Dr. Leona Garcia EO # 0.3 103/ul Normal 0.0-0.7 [facility] Comment on above: Performed By: #### T 4, MG #### [facility] [address] [place] [address] Dr. eLona Garcia Eosinophils/100 WBC (Bld) 3.1 % Normal 0.9-7.0 [facility] Comment on above: Performed By: #### T 4, MG #### [facility] [address] [place] [address] Dr. Leona Garcia Erythrocyte distribution width (RBC) [Ratio] 14.2 % Normal 11.0-15.0 [facility] Comment on above: Performed By: #### T 4, MG #### [facility] [address] [place] [address] Dr. Leona Garcia Hematocrit (Bld) [Volume fraction] 46.6 % Normal 42.0-54.0 [facility] Comment on above: Performed By: #### T 4, MG #### [facility] [address] [place] [address] Dr. Leona Garcia Hemoglobin (Bld) [Mass/Vol] 15.1 g/dL Normal 14.0-18.0 [facility] Comment on above: Performed By: #### T 4, MG #### [facility] [address] [place] [address] Dr. Leona Garcia IG # 0.03 10e3/ul Normal 0.00-0.03 [facility] Comment on above: Performed By: #### T 4, MG #### [facility] [address] [place] [address] Dr. Leona Garcia IG % 0.3 % Normal 0.0-0.5 [facility] Comment on above: Performed By: #### T 4, MG #### [facility] [address] [place] [address] Dr. Leona Garcia LYMPH # 1.5 103/ul Normal 1.2-3.8 [facility] Comment on above: Performed By: #### T 4, MG #### [facility] [address] [place] [address] Dr. Leona Garcia Lymphocytes/100 WBC (Bld) 13.5 % Critically low 20.5-60.0 [facility] Comment on above: Performed By: #### T 4, MG #### [facility] [address] [place] [address] Dr. Leona Garcia MANUAL DIFF REQ NO Normal [facility] Comment on above: Performed By: #### T 4, MG #### [facility] [address] [place] [address] Dr. Leona Garcia MCH (RBC) [Entitic mass] 26.0 pg Normal 25.9-34.0 [facility] Comment on above: Performed By: #### T 4, MG #### [facility] [address] [place] [address] Dr. Leona Garcia MCHC (RBC) [Mass/Vol] 32.4 g/dL Normal 29.9-35.2 [facility] Comment on above: Performed By: #### T 4, MG #### [facility] [address] [place] [address] Dr. Leona Garcia MCV (RBC) [Entitic vol] 80.3 fL Normal 80.0-94.0 [facility] Comment on above: Performed By: #### T 4, MG #### [facility] [address] [place] [address] Dr. Leona Garcia MONO # 0.9 103/ul Critically high 0.3-0.8 [facility] Comment on above: Performed By: #### T 4, MG #### [facility] [address] [place] [address] Dr. Leona Garcia Monocytes/100 WBC (Bld) 8.6 % Normal 1.7-12.0 [facility] Comment on above: Performed By: #### T 4, MG #### [facility] [address] [place] [address] Dr. Leona Garcia NEUT # 8.0 103/ul Critically high 1.4-6.5 [facility] Comment on above: Performed By: #### T 4, MG #### [facility] [address] [place] [address] Dr. Leona Garcia Neutrophils/100 WBC (Bld) 73.9 % Normal 43.0-75.0 [facility] Comment on above: Performed By: #### T 4, MG #### [facility] [address] [place] [address] Dr. Leona Garcia Platelet mean volume (Bld) [Entitic vol] 9.1 fL Critically low 9.5-13.5 [facility] Comment on above: Performed By: #### T 4, MG #### [facility] [address] [place] [address] Dr. Leona Garcia PLT 228 103/ul Normal 150-450 [facility] Comment on above: Performed By: #### T 4, MG #### [facility] [address] [address] [address] Leona Garcia RBC 5.80 106/ul Normal 4.70-6.10 [facility] Comment on above: Performed By: #### T 4, MG #### [facility] [id number] Leona Garcia WBC 10.8 103/ul Normal 4.0-11.0 [facility] Comment on above: Performed By: #### T 4, MG #### [facility] [id number] Leona Garcia Covid-19 PCR ([facility])on 08-24 SARS-CoV-2 (COVID-19) RNA ALEXI+probe Ql (Unsp spec) Not detected Normal NOT DETECTED [facility] Comment on above: Result Comment: When diagnostic testing is negative, the possibility of a false negative should be considered in the context of a patient's recent exposures and the presence of clinical signs and symptoms consistent with SARS-CoV-2. This test is not yet approved or cleared by the [place] FDA. When there are no FDA-approved or cleared tests available, and other criteria are met, FDA can make tests available under an emergency access mechanism called an Emergency Use Authorization (EUA). The EUA for this test is supported by the [place] of Health and Human Service's declaration that circumstances exist to justify the emergency use of in vitro diagnostics for the detection and/or diagnosis of the virus that causes COVID-19. This EUA will remain in effect for the duration of the COVID-19 declaration justifying emergency of IVDs, unless it is terminated or revoked by the FDA (after which the test may no longer be used). Performed By: #### T 4, MG #### [facility] [address] [place] [address] Dr. Leona Garcia ECHO LIMITED STUDYon 023 ECHO LIMITED STUDY Patient: ESTELLA PEÑA Exam Date: 09/20/2022 : 1950 Gender:M Ordering : DR FABIO HERRERA . Admission #: [id number] Family : Order #: [id number] CLICK HERE TO VIEW EXAM ECHOCARDIOGRAM REPORT PROCEDURE: CARDIO PULMONARY ECHO LIMITED STUDY INDICATIONS: Shortness of breath, PTCA COMPARISON: None. DESCRIPTION: Limited ECHOCARDIOGRAM Real-time transthoracic echocardiography with 2D and M-mode performed. QUALITY: Limited echocardiogram per physician order. LEFT VENTRICLE: Normal chamber size. Mild concentric left ventricular hypertrophy. Normal systolic function. LV EF: Normal left ventricular ejection fraction, (55%). DIASTOLIC: ATRIAL SEPTUM: LEFT ATRIUM: Normal chamber size. RIGHT ATRIUM: Mild dilatation. RIGHT VENTRICLE: Normal chamber size. Normal systolic function. TRICUSPID VALVE: Normal mobility and thickness. MITRAL VALVE: Normal mobility and thickness. Mild mitral annular calcification. AORTIC VALVE: Normal trileaflet appearance. Moderately calcified aortic valve. Mildly diminished mobility. AORTIC ROOT: Normal diameter and appearance. PULMONIC VALVE: Normal thickness and mobility. PERICARDIUM: No evidence of pericardial effusion. IVC: Not well visualized. PLEURA: CONCLUSION: 1. Normal ventricular systolic function. LVEF is 55%. 2. Moderately calcified aortic valve with diminished mobility. 3. No pericardial effusion. 4. Limited study with no Doppler interrogation performed as requested. Adult Echocardiography Procedure Report Left Ventricle LVEDD (3.7 - 5.6 cm): 4.38 cm LVESD (2.2 - 4.0 cm): 2.81 cm LVIVS thickness (0.6 - 1.2 cm): 1.23 cm LVPW thickness (0.5 - 1.0 cm): 1.12 cm LVOT Diameter 2.60 cm Left Ventricular Ejection Fraction: 55 % Left Atrium LA Volume Index (2D A2C): 26487 mm3 Left Atrium Systolic Dimension: 4.80 cm Mitral Valve Right Ventricle Aorta AO Root Diam: 3.60 cm Aortic Valve Tricuspid Valve Pulmonic Valve Right Atrium Dictated by: Kevin Epperson M.D. on 09/20/2022 at 14:32 Approved by: Kevin Epperson M.D. on 09/20/2022 at 14:35 Normal [facility] LACTATE/LACTIC ACIDon 2022 Lactate [Moles/Vol] 1.5 mmol/L Normal 0.4-2.0 [facility] Comment on above: Performed By: #### T 4, MG #### [facility] [address] [place] [address] Dr. Leona Garcia MAGNESIUMon 09-20-2022 Magnesium [Mass/Vol] 2.1 mg/dL Normal 1.8-2.4 [facility] Comment on above: Performed By: #### T 4, MG #### [facility] [address] [place] [address] Dr. Leona Garcia PROF 14(COMP METB)on 023 Albumin [Mass/Vol] 3.8 g/dL Normal 3.4-5.0 [facility] Comment on above: Performed By: #### H STROPN, BMP #### [facility] [address] [place] [address] Dr. Leona Garcia Albumin/Globulin [Mass ratio] 0.9 {ratio} Normal [facility] Comment on above: Performed By: #### H STROPN, BMP #### [facility] [address] [place] [address] Dr. Leona Garcia ALP [Catalytic activity/Vol] 72 U/L Normal 46-116 [facility] Comment on above: Performed By: #### H STROPN, BMP #### [facility] [address] [place] [address] Dr. Leona Garcia ALT [Catalytic activity/Vol] 22 U/L Normal 16-63 [facility] Comment on above: Performed By: #### H STROPN, BMP #### [facility] [address] [place] [address] Dr. Leona Garcia Anion gap [Moles/Vol] 16.7 mmol/L Normal [facility] Comment on above: Performed By: #### H STROPN, BMP #### [facility] [address] [place] [address] Dr. Leona Garcia AST [Catalytic activity/Vol] 26 U/L Normal 15-37 [facility] Comment on above: Performed By: #### H STROPN, BMP #### [facility] [address] [place] [address] Dr. Leona Garcia Bilirubin [Mass/Vol] 1.2 mg/dL Critically high 0.2-1.0 [facility] Comment on above: Performed By: #### H STROPN, BMP #### [facility] [address] [address] [address] Leona Garcia Calcium [Mass/Vol] 9.3 mg/dL Normal 8.5-10.1 [facility] Comment on above: Performed By: #### H STROPN, BMP #### [facility] [address] [address] [address] Leona Garcia Chloride [Moles/Vol] 104 mmol/L Normal 98-107 [facility] Comment on above: Performed By: #### H STROPN, BMP #### [facility] [address] [address] [address] Leona Garcia CO2 [Moles/Vol] 24.4 mmol/L Normal 21.0-32.0 [facility] Comment on above: Performed By: #### H STROPN, BMP #### [facility] [address] [place] [address] Dr. Leona Garcia Creatinine [Mass/Vol] 1.38 mg/dL Critically high 0.70-1.30 [facility] Comment on above: Performed By: #### H STROPN, BMP #### [facility] [address] [place] [address] Dr. Leona Garcia EGFR-AF CITIZEN [place] >60 Normal >=60 [facility] Comment on above: Performed By: #### H STROPN, BMP #### [facility] [address] [place] [address] Dr. Leona Garcia EGFR-NON AF CITIZEN [place] 51 mL/min/1.73m2 Critically low >=60 [facility] Comment on above: Performed By: #### H STROPN, BMP #### [facility] [address] [address] [address] Leona Garcia Globulin (S) [Mass/Vol] 4.3 g/dL Normal [facility] Comment on above: Performed By: #### H STROPN, BMP #### [facility] [address] [place] [address] Dr. Leona Garcia Glucose [Mass/Vol] 107 mg/dL Critically high 74-106 [facility] Comment on above: Performed By: #### H STROPN, BMP #### [facility] [address] [address] [address] Leona Garcia Potassium [Moles/Vol] 4.1 mmol/L Normal 3.5-5.1 [facility] Comment on above: Performed By: #### H STROPN, BMP #### [facility] [address] [address] [address] Leona Garcia Protein [Mass/Vol] 8.1 g/dL Normal 6.4-8.2 [facility] Comment on above: Performed By: #### H STROPN, BMP #### [facility] [address] [address] [address] Leona Garcia Sodium [Moles/Vol] 141 mmol/L Normal 136-145 [facility] Comment on above: Performed By: #### H STROPN, BMP #### [facility] [address] [place] [address] Dr. Leona Garcia Urea nitrogen [Mass/Vol] 20.0 mg/dL Critically high 7.0-18.0 [facility] Comment on above: Performed By: #### H DIONNEPN, BMP #### [facility] [address] [address] [address] Leona Garcia Urea nitrogen/Creatinine [Mass ratio] 14.5 mg/mg Normal [facility] Comment on above: Performed By: #### H HERVE, BMP #### [facility] [address] [place] [address] Dr. Leona Garcia PROTIMEon 09-20-2022 INR Coag (PPP) [Relative time] 1.06 {INR} Normal [facility] Comment on above: Performed By: #### P T, PTT #### [facility] [address] [address] [address] Leona Garcia INR GUIDELINES SEE BELOW Normal [facility] Comment on above: Result Comment: IMTIAZ RED INR: 2.0 - 3.0 CONDITIONS NOT LISTED BELOW 2.5 - 3.5 FOR PROSTHETIC HEART VALVE REPLACEMENT 2.5 - 3.5 RECURRENT THROMBOSIS Performed By: #### P T, PTT #### [facility] [address] [place] [address] Dr. Leona Garcia PT Coag (PPP) [Time] 11.2 s Normal 9.0-11.6 [facility] Comment on above: Performed By: #### P T, PTT #### [facility] [address] [place] [address] Dr. Leona Garcia PTTon 09-20-2022 aPTT Coag (Bld) [Time] 29.3 s Normal 22.3-36.2 [facility] Comment on above: Performed By: #### P T, PTT #### [facility] [address] [place] [address] Dr. Leona Garcia T4on 09-20-2022 T4 [Mass/Vol] 8.10 ug/dL Normal 4.50-12.10 [facility] Comment on above: Performed By: #### T 4, MG #### [facility] [address] [place] [address] Dr. Leona Garcia TSHon 09-20-2022 TSH 0.884 uIU/mL Normal 0.358-3.740 [facility] Comment on above: Performed By: #### H STROPN, BMP #### [facility] [address] [place] [address] Dr. Leona Garcia UA RANDOM W/MICROSCOPICon BACTERIA LARGE Abnormal NONE SEEN [facility] Comment on above: Performed By: #### T 4, MG #### [facility] [address] [place] [address] Dr. Leona Garcia Bilirubin Ql (U) Negative Normal NEGATIVE [facility] Comment on above: Performed By: #### T 4, MG #### [facility] [address] [place] [address] Dr. Leona Garcia CAST NONE SEEN Normal NONE SEEN [facility] Comment on above: Performed By: #### T 4, MG #### [facility] [address] [place] [address] Dr. Leona Garcia Clarity (U) SL CLOUDY Abnormal CLEAR [facility] Comment on above: Performed By: #### T 4, MG #### [facility] [address] [place] [address] Dr. Leona Garcia Color (U) LT. YELLOW Normal YELLOW [facility] Comment on above: Performed By: #### T 4, MG #### [facility] [address] [place] [address] Dr. Leona Garcia Crystals LM Nom (Urine sed) NONE SEEN Normal NONE SEEN [facility] Comment on above: Performed By: #### T 4, MG #### [facility] [address] [place] [address] Dr. Leona Garcia Epithelial cells LM Ql (Urine sed) RARE Normal NONE SEEN /RARE [facility] Comment on above: Performed By: #### T 4, MG #### [facility] [address] [place] [address] Dr. Leona Garcia Glucose Ql (U) Negative Normal NEGATIVE [facility] Comment on above: Performed By: #### T 4, MG #### [facility] [address] [place] [address] Dr. Leona Garcia Hemoglobin Ql (U) MODERATE Abnormal NEGATIVE [facility] Comment on above: Performed By: #### T 4, MG #### [facility] [address] [place] [address] Dr. Leona Garcia Ketones Ql (U) Negative Normal NEGATIVE [facility] Comment on above: Performed By: #### T 4, MG #### [facility] [address] [place] [address] Dr. Leona Garcia LEUKOCYTES MODERATE Abnormal NEGATIVE [facility] Comment on above: Performed By: #### T 4, MG #### [facility] [address] [place] [address] Dr. Leona Garcia MUCOUS NONE SEEN Normal NONE SEEN [facility] Comment on above: Performed By: #### T 4, MG #### [facility] [address] [place] [address] Dr. Leona Garcia Nitrite Ql (U) Positive Abnormal NEGATIVE [facility] Comment on above: Performed By: #### T 4, MG #### [facility] [address] [place] [address] Dr. Leona Garcia pH (U) 5.5 [pH] Normal 5-9 [facility] Comment on above: Performed By: #### T 4, MG #### [facility] [address] [place] [address] Dr. Leona Garcia RBC 2-5 Abnormal 0-2 [facility] Comment on above: Performed By: #### T 4, MG #### [facility] [address] [place] [address] Dr. Leona Garcia SPEC GRAVITY 1.030 Abnormal 1.005-<=1.02 5 [facility] Comment on above: Performed By: #### T 4, MG #### [facility] [address] [place] [address] Dr. Leona Garcia UA PROTEIN TRACE Normal NEGATIVE/ TRACE [facility] Comment on above: Performed By: #### T 4, MG #### [facility] [address] [place] [address] Dr. Leona Garcia Urobilinogen Qn (U) 0.2 {Paulina'U}/dL Normal 0.2 - 1. 0 [facility] Comment on above: Performed By: #### T 4, MG #### [facility] [address] [place] [address] Dr. Leona Garcia WBC 75-100 Abnormal NONE SEEN [facility] Comment on above: Performed By: #### T 4, MG #### [facility] [address] [place] [address] Dr. Leona Garcia XR CHEST 1 Von 09-20-2022 XR CHEST 1 V EXAM: Chest x-ray HISTORY: . SHORTNESS OF BREATH . COMPARISON: 05/17/2022 TECHNIQUE: Single view of the chest FINDINGS: Heart is slightly to mildly enlarged. Vascularity is unremarkable. Lungs are free of focal infiltrates. EKG leads overlie the chest. IMPRESSION: 1. Cardiac enlargement. 2. No infiltrates noted. Electronically authenticated by: SAROJ DOMINGUEZ Date: 2022-09-20 09:05 Normal [facility] BNPon 05-19-2022 Natriuretic peptide B (Bld) [Mass/Vol] 1362.0 pg/mL Critically high <=900.0 [facility] Comment on above: Performed By: #### T 4, MG #### [facility] [address] [place] [address] Dr. Leona Garcia CBC AUTO DIFFon 05-19-2022 BASO # 0.0 103/ul Normal 0.0-0.1 [facility] Comment on above: Performed By: #### T 4, MG #### [facility] [address] [place] [address] Dr. Leona Garcia Basophils/100 WBC (Bld) 0.2 % Normal 0.2-2.0 [facility] Comment on above: Performed By: #### T 4, MG #### [facility] [address] [place] [address] Dr. Leona Garcia EO # 0.0 103/ul Normal 0.0-0.7 [facility] Comment on above: Performed By: #### T 4, MG #### [facility] [address] [place] [address] Dr. Leona Garcia Eosinophils/100 WBC (Bld) 0.0 % Critically low 0.9-7.0 [facility] Comment on above: Performed By: #### T 4, MG #### [facility] [address] [place] [address] Dr. Leona Garcia Erythrocyte distribution width (RBC) [Ratio] 13.9 % Normal 11.0-15.0 [facility] Comment on above: Performed By: #### T 4, MG #### [facility] [address] [place] [address] Dr. Leona Garcia Hematocrit (Bld) [Volume fraction] 41.5 % Critically low 42.0-54.0 [facility] Comment on above: Performed By: #### T 4, MG #### [facility] [address] [place] [address] Dr. Leona Garcia Hemoglobin (Bld) [Mass/Vol] 13.7 g/dL Critically low 14.0-18.0 [facility] Comment on above: Performed By: #### T 4, MG #### [facility] [address] [address] [address] Leona Garcia IG # 0.10 10e3/ul Critically high 0.00-0.03 [facility] Comment on above: Performed By: #### T 4, MG #### [facility] [address] [place] [address] Dr. Leona Garcia IG % 0.6 % Critically high 0.0-0.5 [facility] Comment on above: Performed By: #### T 4, MG #### [facility] [address] [place] [address] Dr. Leona Garcia LYMPH # 1.1 103/ul Critically low 1.2-3.8 [facility] Comment on above: Performed By: #### T 4, MG #### [facility] [address] [place] [address] Dr. Leona Garcia Lymphocytes/100 WBC (Bld) 5.8 % Critically low 20.5-60.0 [facility] Comment on above: Performed By: #### T 4, MG #### [facility] [address] [place] [address] Dr. Leona Garcia MANUAL DIFF REQ NO Normal [facility] Comment on above: Performed By: #### T 4, MG #### [facility] [address] [place] [address] Dr. Leona Garcia MCH (RBC) [Entitic mass] 26.0 pg Normal 25.9-34.0 [facility] Comment on above: Performed By: #### T 4, MG #### [facility] [address] [place] [address] Dr. Leona Garcia MCHC (RBC) [Mass/Vol] 33.0 g/dL Normal 29.9-35.2 [facility] Comment on above: Performed By: #### T 4, MG #### [facility] [address] [place] [address] Dr. Leona Garcia MCV (RBC) [Entitic vol] 78.7 fL Critically low 80.0-94.0 [facility] Comment on above: Performed By: #### T 4, MG #### [facility] [address] [place] [address] Dr. Leona Garcia MONO # 0.6 103/ul Normal 0.3-0.8 [facility] Comment on above: Performed By: #### T 4, MG #### [facility] [address] [place] [address] Dr. Leona Garcia Monocytes/100 WBC (Bld) 3.4 % Normal 1.7-12.0 [facility] Comment on above: Performed By: #### T 4, MG #### [facility] [address] [place] [address] Dr. Leona Garcia NEUT # 16.4 103/ul Critically high 1.4-6.5 [facility] Comment on above: Performed By: #### T 4, MG #### [facility] [address] [place] [address] Dr. Leona Garcia Neutrophils/100 WBC (Bld) 90.0 % Critically high 43.0-75.0 [facility] Comment on above: Performed By: #### T 4, MG #### [facility] [address] [place] [address] Dr. Leona Garcia Platelet mean volume (Bld) [Entitic vol] 9.1 fL Critically low 9.5-13.5 [facility] Comment on above: Performed By: #### T 4, MG #### [facility] [address] [place] [address] Dr. Leona Garcia PLT 242 103/ul Normal 150-450 [facility] Comment on above: Performed By: #### T 4, MG #### [facility] [address] [place] [address] Dr. Leona Garcia RBC 5.27 106/ul Normal 4.70-6.10 [facility] Comment on above: Performed By: #### T 4, MG #### [facility] [address] [place] [address] Dr. Leona Garcia WBC 18.2 103/ul Critically high 4.0-11.0 [facility] Comment on above: Performed By: #### T 4, MG #### [facility] [address] [place] [address] Dr. Leona Garcia PROF 14(COMP METB)on 022 Albumin [Mass/Vol] 3.2 g/dL Critically low 3.4-5.0 [facility] Comment on above: Performed By: #### T 4, MG #### [facility] [address] [place] [address] Dr. Leona Garcia Albumin/Globulin [Mass ratio] 0.8 {ratio} Normal [facility] Comment on above: Performed By: #### T 4, MG #### [facility] [address] [place] [address] Dr. Leona Garcia ALP [Catalytic activity/Vol] 61 U/L Normal 46-116 [facility] Comment on above: Performed By: #### T 4, MG #### [facility] [address] [place] [address] Dr. Leona Garcia ALT [Catalytic activity/Vol] 34 U/L Normal 16-63 [facility] Comment on above: Performed By: #### T 4, MG #### [facility] [address] [place] [address] Dr. Leona Garcia Anion gap [Moles/Vol] 17.4 mmol/L Normal [facility] Comment on above: Performed By: #### T 4, MG #### [facility] [address] [place] [address] Dr. Leona Garcia AST [Catalytic activity/Vol] 38 U/L Critically high 15-37 [facility] Comment on above: Performed By: #### T 4, MG #### [facility] [address] [place] [address] Dr. Leona Garcia Bilirubin [Mass/Vol] 0.4 mg/dL Normal 0.2-1.0 [facility] Comment on above: Performed By: #### T 4, MG #### [facility] [address] [place] [address] Dr. Leona Garcia Calcium [Mass/Vol] 9.0 mg/dL Normal 8.5-10.1 [facility] Comment on above: Performed By: #### T 4, MG #### [facility] [address] [place] [address] Dr. Leona Garcia Chloride [Moles/Vol] 105 mmol/L Normal 98-107 [facility] Comment on above: Performed By: #### T 4, MG #### [facility] [address] [address] [address] Leona Garcia CO2 [Moles/Vol] 20.6 mmol/L Critically low 21.0-32.0 [facility] Comment on above: Performed By: #### T 4, MG #### [facility] [address] [place] [address] Dr. Leona Garcia Creatinine [Mass/Vol] 1.32 mg/dL Critically high 0.70-1.30 [facility] Comment on above: Performed By: #### T 4, MG #### [facility] [address] [place] [address] Dr. Leona Garcia EGFR-AF CITIZEN [place] >60 Normal >=60 [facility] Comment on above: Performed By: #### T 4, MG #### [facility] [address] [place] [address] Dr. Leona Garcia EGFR-NON AF CITIZEN OF [place] 54 mL/min/1.73m2 Critically low >=60 [facility] Comment on above: Performed By: #### T 4, MG #### [facility] [address] [place] [address] Dr. Leona Garcia Globulin (S) [Mass/Vol] 3.8 g/dL Normal [facility] Comment on above: Performed By: #### T 4, MG #### [facility] [address] [place] [address] Dr. Leona Garcia Glucose [Mass/Vol] 167 mg/dL Critically high 74-106 [facility] Comment on above: Performed By: #### T 4, MG #### [facility] [address] [place] [address] Dr. Leona Garcia Potassium [Moles/Vol] 3.0 mmol/L Critically low 3.5-5.1 [facility] Comment on above: Performed By: #### T 4, MG #### [facility] [address] [place] [address] Dr. Leona Garcia Protein [Mass/Vol] 7.0 g/dL Normal 6.4-8.2 [facility] Comment on above: Performed By: #### T 4, MG #### [facility] [address] [place] [address] Dr. Leona Garcia Sodium [Moles/Vol] 139 mmol/L Normal 136-145 [facility] Comment on above: Performed By: #### T 4, MG #### [facility] [address] [place] [address] Dr. Leona Garcia Urea nitrogen [Mass/Vol] 33.0 mg/dL Critically high 7.0-18.0 [facility] Comment on above: Performed By: #### T 4, MG #### [facility] [address] [place] [address] Dr. Leona Garcia Urea nitrogen/Creatinine [Mass ratio] 25.0 mg/mg Normal [facility] Comment on above: Performed By: #### T 4, MG #### [facility] [address] [place] [address] Dr. Leona Garcia BNPon 05-18-2022 Natriuretic peptide B (Bld) [Mass/Vol] 1002.0 pg/mL Critically high <=900.0 [facility] Comment on above: Performed By: #### H STROPN, BMP #### [facility] [address] [place] [address] Dr. Leona Garcia CBC AUTO DIFFon 05-18-2022 BASO # 0.0 103/ul Normal 0.0-0.1 [facility] Comment on above: Performed By: #### H STROPN, BMP #### [facility] [address] [place] [address] Dr. Leona Garcia Basophils/100 WBC (Bld) 0.2 % Normal 0.2-2.0 [facility] Comment on above: Performed By: #### H STROPN, BMP #### [facility] [address] [place] [address] Dr. Leona Garcia EO # 0.0 103/ul Normal 0.0-0.7 [facility] Comment on above: Performed By: #### H STROPN, BMP #### [facility] [address] [place] [address] Dr. Leona Garcia Eosinophils/100 WBC (Bld) 0.0 % Critically low 0.9-7.0 [facility] Comment on above: Performed By: #### H STROPN, BMP #### [facility] [address] [place] [address] Dr. Leona Garcia Erythrocyte distribution width (RBC) [Ratio] 13.8 % Normal 11.0-15.0 [facility] Comment on above: Performed By: #### H STROPN, BMP #### [facility] [address] [place] [address] Dr. Leona Garcia Hematocrit (Bld) [Volume fraction] 45.7 % Normal 42.0-54.0 [facility] Comment on above: Performed By: #### H STROPN, BMP #### [facility] [address] [place] [address] Dr. Leona Garcia Hemoglobin (Bld) [Mass/Vol] 14.9 g/dL Normal 14.0-18.0 [facility] Comment on above: Performed By: #### H STROPN, BMP #### [facility] [address] [place] [address] Dr. Leona Garcia IG # 0.04 10e3/ul Critically high 0.00-0.03 [facility] Comment on above: Performed By: #### H STROPN, BMP #### [facility] [address] [place] [address] Dr. Leona Garcia IG % 0.3 % Normal 0.0-0.5 [facility] Comment on above: Performed By: #### H STROPN, BMP #### [facility] [address] [place] [address] Dr. Leona Garcia LYMPH # 1.2 103/ul Normal 1.2-3.8 [facility] Comment on above: Performed By: #### H STROPN, BMP #### [facility] [address] [place] [address] Dr. Loena Garcia Lymphocytes/100 WBC (Bld) 9.6 % Critically low 20.5-60.0 [facility] Comment on above: Performed By: #### H STROPN, BMP #### [facility] [address] [address] [address] Leona Garcia MANUAL DIFF REQ NO Normal [facility] Comment on above: Performed By: #### H STROPN, BMP #### [facility] [address] [place] [address] Dr. Leona Garcia MCH (RBC) [Entitic mass] 25.6 pg Critically low 25.9-34.0 [facility] Comment on above: Performed By: #### H STROPN, BMP #### [facility] [address] [place] [address] Dr. Leona Garcia MCHC (RBC) [Mass/Vol] 32.6 g/dL Normal 29.9-35.2 [facility] Comment on above: Performed By: #### H STROPN, BMP #### [facility] [address] [place] [address] Dr. Leona Garcia MCV (RBC) [Entitic vol] 78.5 fL Critically low 80.0-94.0 [facility] Comment on above: Performed By: #### H STROPN, BMP #### [facility] [address] [place] [address] Dr. Leona Garcia MONO # 0.4 103/ul Normal 0.3-0.8 [facility] Comment on above: Performed By: #### H STROPN, BMP #### [facility] [address] [place] [address] Dr. Lenoa Garcia Monocytes/100 WBC (Bld) 3.0 % Normal 1.7-12.0 [facility] Comment on above: Performed By: #### H STROPN, BMP #### [facility] [address] [place] [address] Dr. Leona Garcia NEUT # 10.5 103/ul Critically high 1.4-6.5 [facility] Comment on above: Performed By: #### H STROPN, BMP #### [facility] [address] [address] [address] Leona Garcia Neutrophils/100 WBC (Bld) 86.9 % Critically high 43.0-75.0 [facility] Comment on above: Performed By: #### H STROPN, BMP #### [facility] [address] [address] [address] Leona Garcia Platelet mean volume (Bld) [Entitic vol] 9.0 fL Critically low 9.5-13.5 [facility] Comment on above: Performed By: #### H STROPN, BMP #### [facility] [address] [address] [address] Leona Garcia PLT 249 103/ul Normal 150-450 [facility] Comment on above: Performed By: #### H STROPN, BMP #### [facility] [address] [address] [address] Leona Garcia RBC 5.82 106/ul Normal 4.70-6.10 [facility] Comment on above: Performed By: #### H STROPN, BMP #### [facility] [address] [address] [address] Leona Garcia WBC 12.0 103/ul Critically high 4.0-11.0 [facility] Comment on above: Performed By: #### H STROPN, BMP #### [facility] [address] [address] [address] Leona Garcia CULTURE SPUTUMon 05-18-2022 CULTURE SPUTUM Culture Observations : NORMAL RESPIRATORY VILMA. Normal [facility] Comment on above: Performed By: #### H STROPN, BMP #### [facility] [address] [place] [address] Dr. Leona Garcia PROF 14(COMP METB)on 022 Albumin [Mass/Vol] 3.2 g/dL Critically low 3.4-5.0 Th e [facility] Comment on above: Performed By: #### T 4, MG #### [facility] [address] [place] [address] Dr. Leona Garcia Albumin/Globulin [Mass ratio] 0.7 {ratio} Normal [facility] Comment on above: Performed By: #### T 4, MG #### [facility] [address] [place] [address] Dr. Leona Garcia ALP [Catalytic activity/Vol] 69 U/L Normal 46-116 [facility] Comment on above: Performed By: #### T 4, MG #### [facility] [address] [place] [address] Dr. Leona Garcia ALT [Catalytic activity/Vol] 28 U/L Normal 16-63 [facility] Comment on above: Performed By: #### T 4, MG #### [facility] [address] [place] [address] Dr. Leona Garcia Anion gap [Moles/Vol] 15.1 mmol/L Normal [facility] Comment on above: Performed By: #### T 4, MG #### [facility] [address] [place] [address] Dr. Leona Garcia AST [Catalytic activity/Vol] 29 U/L Normal 15-37 [facility] Comment on above: Performed By: #### T 4, MG #### [facility] [address] [place] [address] Dr. Leona Garcia Bilirubin [Mass/Vol] 0.7 mg/dL Normal 0.2-1.0 [facility] Comment on above: Performed By: #### T 4, MG #### [facility] [address] [place] [address] Dr. Leona Garcia Calcium [Mass/Vol] 9.3 mg/dL Normal 8.5-10.1 [facility] Comment on above: Performed By: #### T 4, MG #### [facility] [address] [place] [address] Dr. Leona Garcia Chloride [Moles/Vol] 102 mmol/L Normal 98-107 [facility] Comment on above: Performed By: #### T 4, MG #### [facility] [address] [place] [address] Dr. Leona Garcia CO2 [Moles/Vol] 22.4 mmol/L Normal 21.0-32.0 [facility] Comment on above: Performed By: #### T 4, MG #### [facility] [address] [place] [address] Dr. Leona Garcia Creatinine [Mass/Vol] 1.23 mg/dL Normal 0.70-1.30 [facility] Comment on above: Performed By: #### T 4, MG #### [facility] [address] [place] [address] Dr. Leona Garcia EGFR-AF [place]IZ[place] >60 Normal >=60 [facility] Comment on above: Performed By: #### T 4, MG #### [facility] [address] [place] [address] Dr. Leona Garcia EGFR-NON AF [place]IZ[place] 58 mL/min/1.73m2 Critically low >=60 [facility] Comment on above: Performed By: #### T 4, MG #### [facility] [address] [place] [address] Dr. Leona Garcia Globulin (S) [Mass/Vol] 4.4 g/dL Normal [facility] Comment on above: Performed By: #### T 4, MG #### [facility] [address] [place] [address] Dr. Leona Garcia Glucose [Mass/Vol] 178 mg/dL Critically high 74-106 [facility] Comment on above: Performed By: #### T 4, MG #### [facility] [address] [place] [address] Dr. Leona Garcia Potassium [Moles/Vol] 3.5 mmol/L Normal 3.5-5.1 [facility] Comment on above: Performed By: #### T 4, MG #### [facility] [address] [place] [address] Dr. Leona Garcia Protein [Mass/Vol] 7.6 g/dL Normal 6.4-8.2 [facility] Comment on above: Performed By: #### T 4, MG #### [facility] [address] [place] [address] Dr. Leona Garcia Sodium [Moles/Vol] 136 mmol/L Normal 136-145 [facility] Comment on above: Performed By: #### T 4, MG #### [facility] [address] [place] [address] Dr. Leona Garcia Urea nitrogen [Mass/Vol] 29.0 mg/dL Critically high 7.0-18.0 [facility] Comment on above: Performed By: #### T 4, MG #### [facility] [address] [place] [address] Dr. Leona Garcia Urea nitrogen/Creatinine [Mass ratio] 23.6 mg/mg Normal [facility] Comment on above: Performed By: #### T 4, MG #### [facility] [address] [place] [address] Dr. Leona Garcia T3, TOTAL (TRIIODOTHYRONINE) on 05-18-2022 T3, TOTAL 71 ng/dL Normal 71-180 [facility] Comment on above: Performed By: #### T 4, MG #### [facility] [address] [place] [address] Dr. Leona Garcia BNPon 05-17-2022 Natriuretic peptide B (Bld) [Mass/Vol] 1040.0 pg/mL Critically high <=900.0 [facility] Comment on above: Performed By: #### H STROPN, BMP #### [facility] [address] [place] [address] Dr. Leona Garcia CARDIAC HARSHIL 3-6on 2 CK [Catalytic activity/Vol] 591 U/L Critically high 39-308 [facility] Comment on above: Performed By: #### T 4, MG #### [facility] [address] [place] [address] Dr. Leona Garcia CK.MB [Mass/Vol] 1.25 ng/mL Normal <=3.60 [facility] Comment on above: Performed By: #### T 4, MG #### [facility] [address] [place] [address] Dr. Leona Garcia HSTROP 15.4 pg/mL Normal 4.0-76.1 [facility] Comment on above: Result Comment: CUT- OFF POINTS HAVE BEEN ESTABLISHED BASED ON THE FOURTH UNIVERSAL DEFINITIONS OF MYOCARDIAL INFARCTION. THE UPPER REFERENCE LIMIT (URL) OF TROPONIN, DEFINED THE 99TH PERCENTILE OF cTnI DISTRIBUTION IN A REFERENCE POPULATION, HAS BEEN CONFIRMED THE DECISION THRESHOLD FOR TX DIAGNOSIS. Performed By: #### T 4, MG #### [facility] [address] [address] [address] Leona Garcia CK [Catalytic activity/Vol] 513 U/L Critically high 39-308 [facility] Comment on above: Performed By: #### L ACT #### [facility] [address] [address] [address] Leona Garcia CK.MB [Mass/Vol] 1.36 ng/mL Normal <=3.60 [facility] Comment on above: Performed By: #### L ACT #### [facility] [address] [place] [address] Dr. Leona Garcia HSTROP 13.8 pg/mL Normal 4.0-76.1 [facility] Comment on above: Result Comment: CUT- OFF POINTS HAVE BEEN ESTABLISHED BASED ON THE FOURTH UNIVERSAL DEFINITIONS OF MYOCARDIAL INFARCTION. THE UPPER REFERENCE LIMIT (URL) OF TROPONIN, DEFINED THE 99TH PERCENTILE OF cTnI DISTRIBUTION IN A REFERENCE POPULATION, HAS BEEN CONFIRMED THE DECISION THRESHOLD FOR TX DIAGNOSIS. Performed By: #### L ACT #### [facility] [address] [place] [address] Dr. Leona Garcia CARDIAC HARSIHL ADMITon 2 022 CK [Catalytic activity/Vol] 438 U/L Critically high 39-308 [facility] Comment on above: Performed By: #### H STROPN, BMP #### [facility] [address] [address] [address] Leona Garcia CK.MB [Mass/Vol] 1.23 ng/mL Normal <=3.60 [facility] Comment on above: Performed By: #### H STROPN, BMP #### [facility] [address] [address] [address] Leona Garcia HSTROP 14.6 pg/mL Normal 4.0-76.1 [facility] Comment on above: Result Comment: CUT- OFF POINTS HAVE BEEN ESTABLISHED BASED ON THE FOURTH UNIVERSAL DEFINITIONS OF MYOCARDIAL INFARCTION. THE UPPER REFERENCE LIMIT (URL) OF TROPONIN, DEFINED THE 99TH PERCENTILE OF cTnI DISTRIBUTION IN A REFERENCE POPULATION, HAS BEEN CONFIRMED THE DECISION THRESHOLD FOR TX DIAGNOSIS. Performed By: #### H STROPN, BMP #### [facility] [address] [place] [address] Dr. Leona Garcia JIGNA 283 ng/mL Critically high 16-96 [facility] Comment on above: Performed By: #### H STROPN, BMP #### [facility] [address] [place] [address] Dr. Leona Garcia CBC AUTO DIFFon 05-17-2022 BASO # 0.1 103/ul Normal 0.0-0.1 [facility] Comment on above: Performed By: #### L ACT #### [facility] [address] [place] [address] Dr. Leona Garcia Basophils/100 WBC (Bld) 0.7 % Normal 0.2-2.0 [facility] Comment on above: Performed By: #### L ACT #### [facility] [address] [place] [address] Dr. Leona Garcia EO # 0.4 103/ul Normal 0.0-0.7 [facility] Comment on above: Performed By: #### L ACT #### [facility] [address] [place] [address] Dr. Leona Garcia Eosinophils/100 WBC (Bld) 5.2 % Normal 0.9-7.0 [facility] Comment on above: Performed By: #### L ACT #### [facility] [address] [place] [address] Dr. Leona Garcia Erythrocyte distribution width (RBC) [Ratio] 13.8 % Normal 11.0-15.0 [facility] Comment on above: Performed By: #### L ACT #### [facility] [address] [place] [address] Dr. Leona Garcia Hematocrit (Bld) [Volume fraction] 45.1 % Normal 42.0-54.0 [facility] Comment on above: Performed By: #### L ACT #### [facility] [address] [address] [address] Leona Garcia Hemoglobin (Bld) [Mass/Vol] 15.1 g/dL Normal 14.0-18.0 [facility] Comment on above: Performed By: #### L ACT #### [facility] [address] [address] [address] Leona Garcia IG # 0.03 10e3/ul Normal 0.00-0.03 [facility] Comment on above: Performed By: #### L ACT #### [facility] [address] [place] [address] Dr. Leona Garcia IG % 0.4 % Normal 0.0-0.5 [facility] Comment on above: Performed By: #### L ACT #### [facility] [address] [place] [address] Dr. Leona Garcia LYMPH # 1.3 103/ul Normal 1.2-3.8 [facility] Comment on above: Performed By: #### L ACT #### [facility] [address] [place] [address] Dr. Leona Garcia Lymphocytes/100 WBC (Bld) 17.8 % Critically low 20.5-60.0 [facility] Comment on above: Performed By: #### L ACT #### [facility] [address] [place] [address] Dr. Leona Garcia MANUAL DIFF REQ NO Normal [facility] Comment on above: Performed By: #### L ACT #### [facility] [address] [place] [address] Dr. Leona Garcia MCH (RBC) [Entitic mass] 26.5 pg Normal 25.9-34.0 [facility] Comment on above: Performed By: #### L ACT #### [facility] [address] [place] [address] Dr. Leona Garcia MCHC (RBC) [Mass/Vol] 33.5 g/dL Normal 29.9-35.2 [facility] Comment on above: Performed By: #### L ACT #### [facility] [address] [id number] [address] Leona Garcia MCV (RBC) [Entitic vol] 79.3 fL Critically low 80.0-94.0 [facility] Comment on above: Performed By: #### L ACT #### [facility] [address] [address] [address] Leona Garcia MONO # 0.8 103/ul Normal 0.3-0.8 [facility] Comment on above: Performed By: #### L ACT #### [facility] [address] [address] [address] Leona Garcia Monocytes/100 WBC (Bld) 10.6 % Normal 1.7-12.0 [facility] Comment on above: Performed By: #### L ACT #### [facility] [address] [place] [address] Dr. Leona Garcia NEUT # 4.8 103/ul Normal 1.4-6.5 [facility] Comment on above: Performed By: #### L ACT #### [facility] [address] [place] [address] Dr. Leona Garcia Neutrophils/100 WBC (Bld) 65.3 % Normal 43.0-75.0 [facility] Comment on above: Performed By: #### L ACT #### [facility] [address] [place] [address] Dr. Leona Garcia Platelet mean volume (Bld) [Entitic vol] 9.2 fL Critically low 9.5-13.5 [facility] Comment on above: Performed By: #### L ACT #### [facility] [address] [place] [address] Dr. Leona Garcia PLT 204 103/ul Normal 150-450 [facility] Comment on above: Performed By: #### L ACT #### [facility] [address] [address] [address] Leona Garcia RBC 5.69 106/ul Normal 4.70-6.10 [facility] Comment on above: Performed By: #### L ACT #### [facility] [address] [place] [address] Dr. Leona Garcia WBC 7.4 103/ul Normal 4.0-11.0 The [facility] Comment on above: Performed By: #### L ACT #### [facility] [id number] Leona Garcia CTA CHEST WO W CONon 022 CTA CHEST WO W CON EXAMINATION: CTA CRUZ ST WO W CON HISTORY: SHORTNESS OF BREATH , cough, wheezing, Parkinson's disease COMPARISON: No relevant comparison available. TECHNIQUE: Multi-planar CT images were created with IV contrast. Axial, Coronal, and Sagittal images. Dose reduction techniques were achieved by using automated exposure control and/or adjustment of mA and/or kV according to patient size and/or use of iterative reconstruction technique. 3-D reconstruction was performed on a separate workstation. FINDINGS: VASCULATURE: Limited examination due to motion artifact. Suspect small nonocclusive embolism within left lower lobe medial basilar segmental artery. LUNGS: Limited by motion artifact. No visible pulmonary disease. PLEURA: No mass, effusion, or pneumothorax. SAKINA: No mass or adenopathy. MEDIASTINUM: No mass or adenopathy. CARDIAC: No enlargement, pericardial effusion, or pericardial thickening. AORTA: No aneurysm or dissection. CHEST WALL: No mass or axillary adenopathy. BONES: No bone lesion or fracture. LIMITED ABDOMEN: Numerous calcifications within right adrenal gland likely sequela of remote insult/trauma to adrenal gland. 1.5 cm left adrenal nodule with areas of fat density favoring a benign adenoma. Limited images of the upper abdomen. OTHER: Negative. IMPRESSION: 1. Examination is limited by patient motion artifact. 2. Small nonocclusive embolism within left lower lobe medial basilar segment versus motion artifact. I suspect this represents a very small embolism burden which may be present and additional vessels, but not appreciable due to motion artifact. Consider ultrasound bilateral lower extremities to evaluate for additional thrombus. 3. Grossly clear lungs, but evaluation is limited by motion artifact. Electronically authenticated by: ROHITH MCGEE Date: 2022-05-17 11:21 Normal [facility] CULTURE BLOODon 05-17-2022 Microscopic examination of blood, culture Culture Observations: NO GROWTH AT 5 DAYS. Isolate 1 [id number] Normal [facility] Comment on above: Performed By: #### H HERVE, BMP #### [facility] [address] [address] [address] Leona Garcia [facility] SARS-CoV-2 (COVID-19) RNA ALEXI+probe Ql (Unsp spec) Not detected Normal NOT DETECTED [facility] Comment on above: Result Comment: When diagnostic testing is negative, the possibility of a false negative should be considered in the context of a patient's recent exposures and the presence of clinical signs and symptoms consistent with SARS-CoV-2. This test is not yet approved or cleared by the [place] FDA. When there are no FDA-approved or cleared tests available, and other criteria are met, FDA can make tests available under an emergency access mechanism called an Emergency Use Authorization (EUA). The EUA for this test is supported by the [place] of Health and Human Service's declaration that circumstances exist to justify the emergency use of in vitro diagnostics for the detection and/or diagnosis of the virus that causes COVID-19. This EUA will remain in effect for the duration of the COVID-19 declaration justifying emergency of IVDs, unless it is terminated or revoked by the FDA (after which the test may no longer be used). Performed By: #### H HERVE, [facility] #### [facility] [address] [place] [address] Dr. Leona Garcia D-DIMERon 05-17-2022 D-DIMER 0.63 mg/L FEU Critically high <=0.59 [facility] Comment on above: Performed By: #### L ACT #### [facility] [address] [place] [address] Dr. Leona Garcia D-DIMER COMMENTS SEE BELOW Normal [facility] Comment on above: Result Comment: Incr eases in D-Dimer concentration observed with thromboembolic events can be variable due to localization, size, and age of the thrombus. Therefore, a thromboembolic event cannot be diagnosed with certainty on the basis of the reference range. D-Dimers may also be elevated for a variety of disorders including: advanced age, , coronary disease, cancer, liver disease, infection, inflammation, hematoma, DIC, trauma, post-surgery, diabetes, thrombolytic or anticoagulant therapy, stress, and generalized hospitalization. Performed By: #### L ACT #### [facility] [address] [address] [address] Leona Garcia ECHOCARDIO M/2D COMPLETEon 1 07-17-2021 ECHOCARDIO M/2D COMPLETE Patient: LINO PEÑA Exam Date: 05/17/2022 : 1950 Gender:M Ordering : DR FABIO HERRERA . Admission #: [id number] Family : Order #: [id number] CLICK HERE TO VIEW EXAM ECHOCARDIOGRAM REPORT PROCEDURE: CARDIO PULMONARY ECHOCARDIO M/2D COMP INDICATIONS: Shortness of breath, PTCA x 4 COMPARISON: None. DESCRIPTION: COMPLETE ECHOCARDIOGRAM Real-time transthoracic echocardiography with 2D, M-mode, spectral and color flow Doppler performed. QUALITY: Technical quality was good. LEFT VENTRICLE: Normal chamber size. Normal left ventricular wall thickness. LV EF Global left ventricular systolic function is normal; visually estimated ejection fraction is 55 to 60%. No obvious segmental wall motion abnormalities. DIASTOLIC: Not adequately assessed due to heart rhythm. ATRIAL SEPTUM: Visually appears intact. LEFT ATRIUM: Normal chamber size. RIGHT ATRIUM: Mild dilation. RIGHT VENTRICLE: Normal chamber size. Normal systolic function. Unable to assess right-sided pressures due to lack of measurable tricuspid regurgitation. TRICUSPID VALVE: Normal mobility and thickness. No stenosis with trivial regurgitation. MITRAL VALVE: Normal mobility and thickness. No evidence of mitral valve stenosis. Mild mitral annular calcification. No mitral regurgitation. AORTIC VALVE: Normal trileaflet appearance. Moderately calcified aortic valve. Mildly diminished mobility. Doppler velocity suggest mild aortic valve stenosis. No aortic regurgitation. AORTIC ROOT: Normal diameter and appearance. PULMONIC VALVE: Not well visualized. No stenosis. Trivial regurgitation. PERICARDIUM: No evidence of pericardial effusion. IVC: Dilated IVC (2.5 cm) with no collapse. CONCLUSION: Global left ventricular systolic function is normal; visually estimated ejection fraction is 55 to 60%. The right ventricle is normal in size and systolic function. The right atrium appears enlarged. Mild aortic valve stenosis. Unable to assess right-sided pressures due to lack of measurable tricuspid regurgitation. Adult Echocardiography Procedure Report Left Ventricle LVEDD (3.7 - 5.6 cm): 4.47 cm LVESD (2.2 - 4.0 cm): 2.69 cm LVIVS thickness (0.6 - 1.2 cm): 0.95 cm LVPW thickness (0.5 - 1.0 cm): 1.09 cm LVOT Max Gradient: 3.04 mm[Hg] Peak Velocity (LVOT): 0.87 m/s Mean Velocity (LVOT): 0.59 m/s LVOT Diameter 2.18 cm Left Ventricular Ejection Fraction: 70.73 %, 70.73 % Left Atrium LA Volume Index (2D A2C): 68.78 ml, 68.78 ml Left Atrium Systolic Dimension: 4.11 cm Mitral Valve Mitral Valve E-Wave Peak Velocity: 1.20 m/s, 1.27 m/s Right Ventricle Aorta AO Root Diam: 3.59 cm Aortic Valve AoV Area (Peak Rogelio): 1.61 cm2, 1.53 cm2 AoV Area (VTI): 1.89 cm2, 1.82 cm2 Peak Velocity(Antegrade Flow): 2.12 m/s, 1.93 m/s, 2.00 m/s Peak Gradient(Antegrade Flow): 17.97 mm[Hg], 14.93 mm[Hg], 16.02 mm[Hg] Mean Velocity(Antegrade Flow): 1.43 m/s, 1.40 m/s, 1.36 m/s Mean Gradient(Antegrade Flow): 9.48 mm[Hg], 8.67 mm[Hg], 8.78 mm[Hg] Velocity Time Integral: 31.13 cm, 28.69 cm, 30.07 cm Tricuspid Valve Pulmonic Valve Mean Gradient: 2.97 mm[Hg] Mean Velocity: 0.82 m/s Peak Velocity: 1.05 m/s, 0.99 m/s Peak Gradient: 4.38 mm[Hg], 3.94 mm[Hg] Right Atrium Right Atrium Systolic Pressure: 125.17 ml, 125.17 ml Dictated by: Peng Menendez M.D. on 05/17/2022 at 16:13 Approved by: Peng Menendez M.D. on 05/17/2022 at 16:19 Normal [facility] LACTATE/LACTIC ACIDon 2021 Lactate [Moles/Vol] 4.3 mmol/L Critically high 0.4-1.9 [facility] Comment on above: Performed By: #### L ACT #### [facility] [address] [address] [address] Leona Garcia Lactate [Moles/Vol] 2.1 mmol/L Critically high 0.4-1.9 [facility] Comment on above: Performed By: #### T 4, MG #### [facility] [address] [address] [address] Leona Garcia PROF 14(COMP METB)on 022 Albumin [Mass/Vol] 3.6 g/dL Normal 3.4-5.0 [facility] Comment on above: Performed By: #### H STROPN, BMP #### [facility] [address] [address] [address] Leona Garcia Albumin/Globulin [Mass ratio] 0.9 {ratio} [facility] Comment on above: Performed By: #### H STROPN, BMP #### [facility] [address] [address] [address] Leona Garcia ALP [Catalytic activity/Vol] 67 U/L Normal 46-116 [facility] Comment on above: Performed By: #### H STROPN, BMP #### [facility] [address] [address] [address] Leona Garcia ALT [Catalytic activity/Vol] 23 U/L Normal 16-63 [facility] Comment on above: Performed By: #### H STROPN, BMP #### [facility] [address] [address] [address] Leona Garcia Anion gap [Moles/Vol] 14.5 mmol/L Normal [facility] Comment on above: Performed By: #### H STROPN, BMP #### [facility] [address] [address] [address] Leona Garcia AST [Catalytic activity/Vol] 27 U/L Normal 15-37 [facility] Comment on above: Performed By: #### H STROPN, BMP #### [facility] [address] [address] [address] Leona Garcia Bilirubin [Mass/Vol] 1.4 mg/dL Critically high 0.2-1.0 [facility] Comment on above: Performed By: #### H STROPN, BMP #### [facility] [address] [address] [address] Leona Garcia Calcium [Mass/Vol] 8.9 mg/dL Normal 8.5-10.1 [facility] Comment on above: Performed By: #### H STROPN, BMP #### [facility] [address] [address] [address] Leona Garcia Chloride [Moles/Vol] 101 mmol/L Normal 98-107 [facility] Comment on above: Performed By: #### H STROPN, BMP #### [facility] [address] [address] [address] Leona Garcia CO2 [Moles/Vol] 23.8 mmol/L Normal 21.0-32.0 [facility] Comment on above: Performed By: #### H STROPN, BMP #### [facility] [address] [address] [address] Leona Garcia Creatinine [Mass/Vol] 1.16 mg/dL Normal 0.70-1.30 [facility] Comment on above: Performed By: #### H STROPN, BMP #### [facility] [address] [place] [address] Dr. Leona Garcia EGFR-AF CITIZEN [place] >60 Normal >=60 [facility] Comment on above: Performed By: #### H STROPN, BMP #### [facility] [address] [address] [address] Leona Garcia EGFR-NON AF CITIZEN OF [place] >60 Normal >=60 [facility] Comment on above: Performed By: #### H STROPN, BMP #### [facility] [address] [address] [address] Leona Garcia Globulin (S) [Mass/Vol] 4.1 g/dL Normal [facility] Comment on above: Performed By: #### H STROPN, BMP #### [facility] [address] [address] [address] Leona Garcia Glucose [Mass/Vol] 124 mg/dL Critically high 74-106 [facility] Comment on above: Performed By: #### H DIONNEPN, BMP #### [facility] [address] [place] [address] Dr. Leona Garcia Potassium [Moles/Vol] 3.3 mmol/L Critically low 3.5-5.1 [facility] Comment on above: Performed By: #### H DIONNEPN, BMP #### [facility] [address] [place] [address] Dr. Leona Garcia Protein [Mass/Vol] 7.7 g/dL Normal 6.4-8.2 [facility] Comment on above: Performed By: #### H STROPN, BMP #### [facility] [address] [place] [address] Dr. Leona Garcia Sodium [Moles/Vol] 136 mmol/L Normal 136-145 [facility] Comment on above: Performed By: #### H HERVE, BMP #### [facility] [address] [place] [address] Dr. Leona Garcia Urea nitrogen [Mass/Vol] 22.0 mg/dL Critically high 7.0-18.0 [facility] Comment on above: Performed By: #### H HERVE, BMP #### [facility] [address] [place] [address] Dr. Leona Garcia Urea nitrogen/Creatinine [Mass ratio] 19.0 mg/mg Normal [facility] Comment on above: Performed By: #### H HERVE, BMP #### [facility] [address] [place] [address] Dr. Leona Garcia PROTIMEon 05-17-2022 INR Coag (PPP) [Relative time] 1.09 {INR} Normal [facility] Comment on above: Performed By: #### T 4, MG #### [facility] [address] [place] [address] Dr. Leona Garcia INR GUIDELINES SEE BELOW Normal [facility] Comment on above: Result Comment: IMTIAZ RED INR: 2.0 - 3.0 CONDITIONS NOT LISTED BELOW 2.5 - 3.5 FOR PROSTHETIC HEART VALVE REPLACEMENT 2.5 - 3.5 RECURRENT THROMBOSIS Performed By: #### T 4, MG #### [facility] [address] [place] [address] Dr. Leona Garcia PT Coag (PPP) [Time] 11.7 s Critically high 9.0-11.6 [facility] Comment on above: Performed By: #### T 4, MG #### [facility] [address] [place] [address] Dr. Leona Garcia PTTon 05-17-2022 aPTT Coag (Bld) [Time] 28.8 s Normal 22.3-36.2 [facility] Comment on above: Performed By: #### T 4, MG #### [facility] [address] [place] [address] Dr. Leona Garcia T4on 05-17-2022 T4 [Mass/Vol] 7.50 ug/dL Normal 4.50-12.10 [facility] Comment on above: Performed By: #### H DIONNEPN, BMP #### [facility] [address] [place] [address] Dr. Leona Garcia TSHon 05-17-2022 TSH 0.877 uIU/mL Normal 0.358-3.740 [facility] Comment on above: Performed By: #### H DIONNEPN, BMP #### [facility] [address] [place] [address] Dr. Leona Garcia TSH 0.846 uIU/mL Normal 0.358-3.740 [facility] Comment on above: Performed By: #### L ACT #### [facility] [address] [place] [address] Dr. Leona Garcia UA RANDOM W/MICROSCOPICon BACTERIA SMALL Abnormal NONE SEEN [facility] Comment on above: Performed By: #### H STROPN, BMP #### [facility] [address] [place] [address] Dr. Leona Garcia Bilirubin Ql (U) Negative Normal NEGATIVE [facility] Comment on above: Performed By: #### H STROPN, BMP #### [facility] [address] [place] [address] Dr. Leona Garcia CAST NONE SEEN Normal NONE SEEN [facility] Comment on above: Performed By: #### H STROPN, BMP #### [facility] [address] [address] [address] Leona Garcia Clarity (U) CLEAR Normal CLEAR [facility] Comment on above: Performed By: #### H STROPN, BMP #### [facility] [address] [address] [address] Leona Garcia Color (U) YELLOW Normal YELLOW [facility] Comment on above: Performed By: #### H STROPN, BMP #### [facility] [address] [address] [address] Leona Garcia Crystals LM Nom (Urine sed) NONE SEEN Normal NONE [facility] Comment on above: Performed By: #### H STROPN, BMP #### [facility] [address] [place] [address] Dr. Leona Garcia Epithelial cells LM Ql (Urine sed) FEW Abnormal NONE SEEN /RARE [facility] Comment on above: Performed By: #### H STROPN, BMP #### [facility] [address] [place] [address] Dr. Leona Garcia Glucose Ql (U) Negative Normal NEGATIVE [facility] Comment on above: Performed By: #### H STROPN, BMP #### [facility] [address] [place] [address] Dr. Leona Garcia Hemoglobin Ql (U) MODERATE Abnormal NEGATIVE [facility] Comment on above: Performed By: #### H STROPN, BMP #### [facility] [address] [address] [address] Leona Garcia Ketones Ql (U) Negative Normal NEGATIVE [facility] Comment on above: Performed By: #### H STROPN, BMP #### [facility] [address] [place] [address] Dr. Leona Garcia LEUKOCYTES SMALL Abnormal NEGATIVE [facility] Comment on above: Performed By: #### H STROPN, BMP #### [facility] [address] [place] [address] Dr. Leona Garcia MUCOUS TRACE Abnormal NONE SEEN [facility] Comment on above: Performed By: #### H STROPN, BMP #### [facility] [address] [address] [address] Leona Garcia Nitrite Ql (U) Positive Abnormal NEGATIVE [facility] Comment on above: Performed By: #### H STROPN, BMP #### [facility] [address] [address] [address] Leona Garcia pH (U) 5.0 [pH] Normal 5-9 [facility] Comment on above: Performed By: #### H STROPN, BMP #### [facility] [address] [address] [address] Leona Garcia RBC 20-50 Abnormal 0-2 [facility] Comment on above: Performed By: #### H HERVE, BMP #### [facility] [address] [place] [address] Dr. Leona Garcia SPEC GRAVITY 1.010 Normal 1.005-<=1.02 5 [facility] Comment on above: Performed By: #### H HERVE, BMP #### [facility] [address] [place] [address] Dr. Leona Garcia UA PROTEIN TRACE Normal NEGATIVE/ TRACE [facility] Comment on above: Performed By: #### H HERVE, BMP #### [facility] [address] [place] [address] Dr. Leona Garcia Urobilinogen Qn (U) 0.2 {Paulina'U}/dL Normal 0.2 - 1. 0 [facility] Comment on above: Performed By: #### H DIONNEPN, BMP #### [facility] [address] [place] [address] Dr. Leona Garcia WBC 5-10 Abnormal NONE SEEN [facility] Comment on above: Performed By: #### H HERVE, BMP #### [facility] [address] [place] [address] Dr. Leona Garcia XR CHEST 1 Von 05-17-2022 XR CHEST 1 V EXAMINATION: XR CHES T 1 V HISTORY: SHORTNESS OF BREATH , cough, wheezing COMPARISON: XR chest 03/08/2021 FINDINGS: LUNGS: No significant pulmonary parenchymal abnormalities. VASCULATURE: No increased pulmonary vasculature. PLEURA: No pneumothorax, effusion, or pleural thickening. CARDIAC: No cardiomegaly or cardiac silhouette abnormality. MEDIASTINUM: No visible mass or adenopathy. BONES: No fracture or visible bone lesion. OTHER: Negative. IMPRESSION: 1. Low lung volume examination without appreciable acute abnormality. Electronically authenticated by: ROHITH MCGEE Date: 2022-05-17 09:34 Normal [facility] Office Visit (Cardiology)on 05-10-2022 Follow-up visit Diagnoses/Problems Assessed Coronary artery disease involving [place] coronary artery of [place] heart without angina pectoris (414.01) (I25.10) H/O non-ST elevation myocardial infarction (NSTEMI) (412) (I25.2) HLD (hyperlipidemia) (272.4) (E78.5) HTN (hypertension) (401.9) (I10) Ischemic cardiomyopathy (414.8) (I25.5) Mixed hyperlipidemia (272.2) (E78.2) Persistent atrial fibrillation (427.31) (I48.19) PVC (premature ventricular contraction) (427.69) (I49.3) Status post insertion of drug eluting coronary artery stent (V45.82) (Z95.5) Never a smoker Morbid obesity with BMI of 40.0-44.9, adult (278.01,V85.41) (E66.01,Z68.41) Anticoagulated (V58.61) (Z79.01) Orders Coronary artery disease involving [place] coronary artery of [place] heart without angina pectoris, HLD (hyperlipidemia) Renew: Atorvastatin Calcium 80 MG Oral Tablet; take 1 tablet by mouth every evening Coronary artery disease involving [place] coronary artery of [place] heart without angina pectoris, HTN (hypertension), Ischemic cardiomyopathy Start: Losartan Potassium 25 MG Oral Tablet; Take 1 tablet daily Coronary artery disease involving [place] coronary artery of [place] heart without angina pectoris, Status post insertion of drug eluting coronary artery stent Renew: Aspirin EC 81 MG Oral Tablet Delayed Release; Take one tablet twice weekly HTN (hypertension), Paroxysmal atrial fibrillation Renew: Metoprolol Tartrate 25 MG Oral Tablet; TAKE 0.5 TABLET Twice daily Morbid obesity with BMI of 40.0-44.9, adult Healthy Weight Tips; Status:Complete - Retrospective Authorization; Done: [id number] Some eating tips that can help you lose weight.; Status:Complete - Retrospective Authorization; Done: 10May2022 Persistent atrial fibrillation Renew: Eliquis 5 MG Oral Tablet; TAKE 1 TABLET BY MOUTH TWICE DAILY SocHx: Never a smoker Tobacco Use Screening; Status:Complete; Done: [id number] Unlinked Stop: Brilinta 90 MG Oral Tablet Stop: Clopidogrel Bisulfate 75 MG Oral Tablet Stop: Lisinopril 5 MG Oral Tablet Patient Instructions Please bring all medicines, vitamins, and herbal supplements with you when you come to the office. Prescriptions will not be filled unless you are compliant with your follow up appointments or have a follow up appointment scheduled as per instruction of your physician. Refills should be requested at the time of your visit. Nurse Practitioner follow-up in [place] [employer] 6 months Chief Complaint LINO PEÑA is being seen for an annual follow-up of Overdue. Patient is 71-year-old gentleman returns for follow-up, he unfortunately has discontinued all of his medications. He sustained high risk non-ST elevation [place] in July 2020, with high risk two-vessel coronary intervention of the proximal through mid LAD and proximal RCA and mid PLV branch x4 BARBARA total. Left ventricular function is 45 to 50% when measured immediately after TX. He has paroxysmal A. fib, he has been off his Eliquis as well. He has no complaints of angina, palpitations, syncope, heart failure, and nitroglycerin usage or hospitalizations. We have implored upon him the necessity of compliance with medical therapy, dietary discretion, weight loss and exercise for over 10 minutes today. Will reinitiate losartan 25 mg daily Eliquis 5 twice daily metoprolol 12.5 twice daily, atorvastatin 80 daily and follow-up with nurse practitioner in 6 months and myself again thereafterwards. Notably, there is some mild cognitive impairment at least by my impression. Surgical History Problems History of Cardiac catheterization with stent placement x3 Denied: History of Colonoscopy Current Meds Medication NameInstruction Anti-Diarrheal TABSTAKE PO NEEDED. Aspirin EC 81 MG Oral Tablet Delayed ReleaseTAKE 1 TABLET PO DAILY. Atorvastatin Calcium 80 MG Oral TabletTAKE 1 TABLET BY MOUTH EVERY EVENING Brilinta 90 MG Oral TabletTAKE 1 TABLET PO twice DAILY. Clopidogrel Bisulfate 75 MG Oral TabletTAKE 1 TABLET PO DAILY. Eliquis 5 MG Oral TabletTAKE 1 TABLET BY MOUTH TWICE DAILY. Heartburn Relief TABSTake tablet PO PRN Lisinopril 5 MG Oral Tablettake 1 tablet po daily Metoprolol Tartrate 25 MG Oral TabletTAKE 1/2 TABLET TWICE DAILY Nitroglycerin 0.4 MG Sublingual Tablet SublingualDISSOLVE 1 TABLET UNDER THE TONGUE NEEDED FOR CHEST PAIN. Allergies Medication No Known Drug Allergies Recorded By: Katiuska Keller; 04/13/2021 2:21:31 PM Social History Problems Caffeine use (V49.89) (Z78.9) pop once in awhile Never a smoker No alcohol use No illicit drug use Review of Systems Constitutional: not feeling tired. Cardiovascular: no intermittent leg claudication and as noted in HPI. Respiratory: no cough and no shortness of breath. Gastrointestinal: no change in bowel habits and no blood in stools. Integumentary: no skin rashes. Neurological: no seizures and no frequent falls. All other systems have been reviewed and are negative for compl (more content not included)... Normal SeeWhy Tobacco Screening.on 022 Adult depression screening assessment No [facility] [address] Work Phone: Fall risk assessment a) No falls within the last year [facility] [address] Work Phone: Tobacco use status CP b) No [facility] [address] [place] Work Phone: CBC AUTO DIFFon 12-22-2021 BASO # 0.1 103/ul Normal 0.0-0.1 [facility] Comment on above: Performed By: #### L ACT #### [facility] [address] [place] [address] Dr. Leona Garcia Basophils/100 WBC (Bld) 1.4 % Normal 0.2-2.0 [facility] Comment on above: Performed By: #### L ACT #### [facility] [address] [address] [address] Leona Garcia EO # 0.3 103/ul Normal 0.0-0.7 [facility] Comment on above: Performed By: #### L ACT #### [facility] [address] [address] [address] Leona Garcia Eosinophils/100 WBC (Bld) 4.1 % Normal 0.9-7.0 [facility] Comment on above: Performed By: #### L ACT #### [facility] [address] [place] [address] Dr. Leona Garcia Erythrocyte distribution width (RBC) [Ratio] 13.5 % Normal 11.0-15.0 [facility] Comment on above: Performed By: #### L ACT #### [facility] [address] [place] [address] Dr. Leona Garcia Hematocrit (Bld) [Volume fraction] 46.1 % Normal 42.0-54.0 [facility] Comment on above: Performed By: #### L ACT #### [facility] [address] [place] [address] Dr. Leona Garcia Hemoglobin (Bld) [Mass/Vol] 14.4 g/dL Normal 14.0-18.0 [facility] Comment on above: Performed By: #### L ACT #### [facility] [address] [place] [address] Dr. Leona Garcia IG # 0.02 10e3/ul Normal 0.00-0.03 [facility] Comment on above: Performed By: #### L ACT #### [facility] [address] [place] [address] Dr. Leona Garcia IG % 0.3 % Normal 0.0-0.5 [facility] Comment on above: Performed By: #### L ACT #### [facility] [address] [place] [address] Dr. Leona Garcia LYMPH # 1.8 103/ul Normal 1.2-3.8 [facility] Comment on above: Performed By: #### L ACT #### [facility] [address] [place] [address] Dr. Leona Garcia Lymphocytes/100 WBC (Bld) 23.7 % Normal 20.5-60.0 [facility] Comment on above: Performed By: #### L ACT #### [facility] [address] [place] [address] Dr. Leona Garcia MANUAL DIFF REQ NO Normal [facility] Comment on above: Performed By: #### L ACT #### [facility] [address] [place] [address] Dr. Leona Garcia MCH (RBC) [Entitic mass] 26.1 pg Normal 25.9-34.0 [facility] Comment on above: Performed By: #### L ACT #### [facility] [address] [place] [address] Dr. Leona Garcia MCHC (RBC) [Mass/Vol] 31.2 g/dL Normal 29.9-35.2 [facility] Comment on above: Performed By: #### L ACT #### [facility] [address] [place] [address] Dr. Leona Garcia MCV (RBC) [Entitic vol] 83.5 fL Normal 80.0-94.0 [facility] Comment on above: Performed By: #### L ACT #### [facility] [address] [place] [address] Dr. Leona Garcia MONO # 0.5 103/ul Normal 0.3-0.8 [facility] Comment on above: Performed By: #### L ACT #### [facility] [address] [place] [address] Dr. Leona Garcia Monocytes/100 WBC (Bld) 6.5 % Normal 1.7-12.0 [facility] Comment on above: Performed By: #### L ACT #### [facility] [address] [place] [address] Dr. Leona Garcia NEUT # 4.7 103/ul Normal 1.4-6.5 [facility] Comment on above: Performed By: #### L ACT #### [facility] [address] [place] [address] Dr. Leona Garcia Neutrophils/100 WBC (Bld) 64.0 % Normal 43.0-75.0 [facility] Comment on above: Performed By: #### L ACT #### [facility] [address] [place] [address] Dr. Leona Garcia Platelet mean volume (Bld) [Entitic vol] 9.0 fL Critically low 9.5-13.5 [facility] Comment on above: Performed By: #### L ACT #### [facility] [address] [place] [address] Dr. Leona Garcia PLT 241 103/ul Normal 150-450 [facility] Comment on above: Performed By: #### L ACT #### [facility] [address] [place] [address] Dr. Leona Garcia RBC 5.52 106/ul Normal 4.70-6.10 [facility] Comment on above: Performed By: #### L ACT #### [facility] [address] [place] [address] Dr. Leona Garcia WBC 7.4 103/ul Normal 4.0-11.0 [facility] Comment on above: Performed By: #### L ACT #### [facility] [address] [place] [address] Dr. Leona Garcia PROF CHEM 8 (BAS METB)on Anion gap [Moles/Vol] 10.8 mmol/L Normal [facility] Comment on above: Performed By: #### H STROPN, BMP #### [facility] [address] [place] [address] Dr. Leona Garcia Calcium [Mass/Vol] 9.1 mg/dL Normal 8.5-10.1 [facility] Comment on above: Performed By: #### H STROPN, BMP #### [facility] [address] [place] [address] Dr. Leona Garcia Chloride [Moles/Vol] 105 mmol/L Normal 98-107 [facility] Comment on above: Performed By: #### H STROPN, BMP #### [facility] [address] [place] [address] Dr. Leona Garcia CO2 [Moles/Vol] 27.1 mmol/L Normal 21.0-32.0 [facility] Comment on above: Performed By: #### H STROPN, BMP #### [facility] [address] [place] [address] Dr. Leona Garcia Creatinine [Mass/Vol] 1.10 mg/dL Normal 0.70-1.30 [facility] Comment on above: Performed By: #### H STROPN, BMP #### [facility] [address] [address] [address] Leona Garcia EGFR-AF CITIZ[place] >60 Normal >=60 [facility] Comment on above: Performed By: #### H STROPN, BMP #### [facility] [address] [address] [address] Leona Garcia EGFR-NON AF CITIZEN [place] >60 Normal >=60 [facility] Comment on above: Performed By: #### H STROPN, BMP #### [facility] [address] [place] [address] Dr. Leona Garcia Glucose [Mass/Vol] 110 mg/dL Critically high 74-[address] [facility] Comment on above: Performed By: #### H STROPN, BMP #### [facility] [address] [place] [address] Dr. Leona Garcia Potassium [Moles/Vol] 4.9 mmol/L Normal 3.5-5.1 [facility] Comment on above: Performed By: #### H STROPN, BMP #### [facility] [address] [place] [address] Dr. Leona Garcia Sodium [Moles/Vol] 138 mmol/L Normal 136-145 [facility] Comment on above: Performed By: #### H STROPN, BMP #### [facility] [address] [place] [address] Dr. Leona Garcia Urea nitrogen [Mass/Vol] 17.0 mg/dL Normal 7.0-18.0 [facility] Comment on above: Performed By: #### H STROPN, BMP #### [facility] [address] [place] [address] Dr. Leona Garcia Urea nitrogen/Creatinine [Mass ratio] 15.5 mg/mg Normal [facility] Comment on above: Performed By: #### H STROPN, BMP #### [facility] [address] [place] [address] Dr. Leona Garcia PROTIMEon 06-30-2022 INR Coag (PPP) [Relative time] 1.05 {INR} Normal [facility] Comment on above: Performed By: #### T 4, MG #### [facility] [address] [place] [address] Dr. Leona Garcia INR GUIDELINES SEE BELOW Normal [facility] Comment on above: Result Comment: IMTIAZ RED INR: 2.0 - 3.0 CONDITIONS NOT LISTED BELOW 2.5 - 3.5 FOR PROSTHETIC HEART VALVE REPLACEMENT 2.5 - 3.5 RECURRENT THROMBOSIS Performed By: #### T 4, MG #### [facility] [address] [place] [address] Dr. Leona Garcia PT Coag (PPP) [Time] 11.3 s Normal 9.0-11.6 [facility] Comment on above: Performed By: #### T 4, MG #### [facility] [address] [place] [address] Dr. Leona Garcia PTTon 12-22-2021 aPTT Coag (Bld) [Time] 27.3 s Normal 22.3-36.2 [facility] Comment on above: Performed By: #### T 4, MG #### [facility] [address] [place] [address] Dr. Leona Garcia TROPONIN, HIGH SENSITIVITYon 12-22-2021 HSTROP 8.3 pg/mL Normal 4.0-76.1 [facility] Comment on above: Result Comment: CUT- OFF POINTS HAVE BEEN ESTABLISHED BASED ON THE FOURTH UNIVERSAL DEFINITIONS OF MYOCARDIAL INFARCTION. THE UPPER REFERENCE LIMIT (URL) OF TROPONIN, DEFINED THE 99TH PERCENTILE OF cTnI DISTRIBUTION IN A REFERENCE POPULATION, HAS BEEN CONFIRMED THE DECISION THRESHOLD FOR TX DIAGNOSIS. Performed By: #### H STROPN, BMP #### [facility] [address] [place] [address] Dr. Leona Garcia CBC AUTO DIFFon 12-09-2021 BASO # 0.1 103/ul Normal 0.0-0.1 [facility] Comment on above: Performed By: #### T 4, MG #### [facility] [address] [place] [address] Dr. Leona Garcia Basophils/100 WBC (Bld) 1.0 % Normal 0.2-2.0 [facility] Comment on above: Performed By: #### T 4, MG #### [facility] [address] [place] [address] Dr. Leona Garcia EO # 0.2 103/ul Normal 0.0-0.7 [facility] Comment on above: Performed By: #### T 4, MG #### [facility] [address] [place] [address] Dr. Leona Garcia Eosinophils/100 WBC (Bld) 2.8 % Normal 0.9-7.0 [facility] Comment on above: Performed By: #### T 4, MG #### [facility] [address] [place] [address] Dr. Leona Garcia Erythrocyte distribution width (RBC) [Ratio] 14.0 % Normal 11.0-15.0 [facility] Comment on above: Performed By: #### T 4, MG #### [facility] [address] [place] [address] Dr. Leona Garcia Hematocrit (Bld) [Volume fraction] 44.6 % Normal 42.0-54.0 [facility] Comment on above: Performed By: #### T 4, MG #### [facility] [address] [place] [address] Dr. Leona Garcia Hemoglobin (Bld) [Mass/Vol] 13.9 g/dL Critically low 14.0-18.0 [facility] Comment on above: Performed By: #### T 4, MG #### [facility] [address] [place] [address] Dr. Leona Garcia IG # 0.04 10e3/ul Critically high 0.00-0.03 [facility] Comment on above: Performed By: #### T 4, MG #### [facility] [address] [place] [address] Dr. Leona Garcia IG % 0.5 % Normal 0.0-0.5 [facility] Comment on above: Performed By: #### T 4, MG #### [facility] [address] [place] [address] Dr. Leona Garcia LYMPH # 1.9 103/ul Normal 1.2-3.8 [facility] Comment on above: Performed By: #### T 4, MG #### [facility] [address] [place] [address] Dr. Leona Garcia Lymphocytes/100 WBC (Bld) 22.1 % Normal 20.5-60.0 [facility] Comment on above: Performed By: #### T 4, MG #### [facility] [address] [place] [address] Dr. Leona Garcia MANUAL DIFF REQ NO Normal [facility] Comment on above: Performed By: #### T 4, MG #### [facility] [address] [place] [address] Dr. Leona Garcia MCH (RBC) [Entitic mass] 26.0 pg Normal 25.9-34.0 [facility] Comment on above: Performed By: #### T 4, MG #### [facility] [address] [place] [address] Dr. Leona Garcia MCHC (RBC) [Mass/Vol] 31.2 g/dL Normal 29.9-35.2 [facility] Comment on above: Performed By: #### T 4, MG #### [facility] [address] [place] [address] Dr. Leona Garcia MCV (RBC) [Entitic vol] 83.4 fL Normal 80.0-94.0 [facility] Comment on above: Performed By: #### T 4, MG #### [facility] [address] [place] [address] Dr. Leona Garcia MONO # 0.6 103/ul Normal 0.3-0.8 [facility] Comment on above: Performed By: #### T 4, MG #### [facility] [address] [place] [address] Dr. Leona Garcia Monocytes/100 WBC (Bld) 7.4 % Normal 1.7-12.0 [facility] Comment on above: Performed By: #### T 4, MG #### [facility] [address] [address] [address] Leona Garcia NEUT # 5.8 103/ul Normal 1.4-6.5 [facility] Comment on above: Performed By: #### T 4, MG #### [facility] [address] [place] [address] Dr. Leona Garcia Neutrophils/100 WBC (Bld) 66.2 % Normal 43.0-75.0 [facility] Comment on above: Performed By: #### T 4, MG #### [facility] [address] [place] [address] Dr. Leona Garcia Platelet mean volume (Bld) [Entitic vol] 9.2 fL Critically low 9.5-13.5 [facility] Comment on above: Performed By: #### T 4, MG #### [facility] [address] [place] [address] Dr. Leona Garcia PLT 259 103/ul Normal 150-450 [facility] Comment on above: Performed By: #### T 4, MG #### [facility] [address] [place] [address] Dr. Leona Garcia RBC 5.35 106/ul Normal 4.70-6.10 [facility] Comment on above: Performed By: #### T 4, MG #### [facility] [address] [place] [address] Dr. Leona Garcia WBC 8.7 103/ul Normal 4.0-11.0 [facility] Comment on above: Performed By: #### T 4, MG #### [facility] [address] [place] [address] Dr. Leona Garcia PROF CHEM 8 (BAS METB)on Anion gap [Moles/Vol] 11.2 mmol/L Normal [facility] Comment on above: Performed By: #### L ACT #### [facility] [address] [place] [address] Dr. Leona Garcia Calcium [Mass/Vol] 8.8 mg/dL Normal 8.5-10.1 [facility] Comment on above: Performed By: #### L ACT #### [facility] [address] [address] [address] Leona Garcia Chloride [Moles/Vol] 107 mmol/L Normal 98-107 [facility] Comment on above: Performed By: #### L ACT #### [facility] [address] [address] [address] Leona Garcia CO2 [Moles/Vol] 26.8 mmol/L Normal 21.0-32.0 [facility] Comment on above: Performed By: #### L ACT #### [facility] [address] [address] [address] Leona Garcia Creatinine [Mass/Vol] 1.13 mg/dL Normal 0.70-1.30 [facility] Comment on above: Performed By: #### L ACT #### [facility] [address] [place] [address] Dr. Leona Garcia EGFR-AF CITIZ[place] >60 Normal >=60 [facility] Comment on above: Performed By: #### L ACT #### [facility] [address] [address] [address] Leona Garcia EGFR-NON AF CITIZ[place] >60 Normal >=60 [facility] Comment on above: Performed By: #### L ACT #### [facility] [address] [place] [address] Dr. Leona Garcia Glucose [Mass/Vol] 102 mg/dL Normal 74-106 [facility] Comment on above: Performed By: #### L ACT #### [facility] [address] [address] [address] Leona Garcia Potassium [Moles/Vol] 4.0 mmol/L Normal 3.5-5.1 [facility] Comment on above: Performed By: #### L ACT #### [facility] [address] [address] [address] Leona Garcia Sodium [Moles/Vol] 141 mmol/L Normal 136-145 [facility] Comment on above: Performed By: #### L ACT #### [facility] [address] [address] [address] Leona Garcia Urea nitrogen [Mass/Vol] 16.0 mg/dL Normal 7.0-18.0 [facility] Comment on above: Performed By: #### L ACT #### [facility] [address] [place] [address] Dr. Leona Garcia Urea nitrogen/Creatinine [Mass ratio] 14.2 mg/mg Normal [facility] Comment on above: Performed By: #### L ACT #### [facility] [address] [place] [address] Dr. Leona Garcia PROTIMEon 12-09-2021 INR Coag (PPP) [Relative time] 1.03 {INR} Normal [facility] Comment on above: Performed By: #### P TT, PT #### [facility] [address] [place] [address] Dr. Leona Garcia INR GUIDELINES SEE BELOW Normal [facility] Comment on above: Result Comment: IMTIAZ RED INR: 2.0 - 3.0 CONDITIONS NOT LISTED BELOW 2.5 - 3.5 FOR PROSTHETIC HEART VALVE REPLACEMENT 2.5 - 3.5 RECURRENT THROMBOSIS Performed By: #### P TT, PT #### [facility] [address] [place] [address] Dr. Leona Garcia PT Coag (PPP) [Time] 11.1 s Normal 9.0-11.6 [facility] Comment on above: Performed By: #### P TT, PT #### [facility] [address] [place] [address] Dr. Leona Garcia PTTon 12-09-2021 aPTT Coag (Bld) [Time] 28.7 s Normal 22.3-36.2 [facility] Comment on above: Performed By: #### P TT, PT #### [facility] [address] [place] [address] Dr. Leona Garcia Tobacco Screening.on 021 Fall risk assessment a) No falls within the last year [facility] [address] [place] Work Phone: Tobacco use status [facility] b) No [facility] [address] [place] Work Phone: Tobacco Screening.on 021 Fall risk assessment a) No falls within the last year [facility] [address] Work Phone: Tobacco use status CP b) No [facility] [address] DO Work Phone: Provider Orderson 03-28-2021 Provider Orders [id number] [facility] Provider Orderson 03-23-2021 Provider Orders [id number] [facility] Provider Orders [id number] [facility] Outside Recordson 03-22-2021 Outside Records [id number] [facility] Coding Summaryon 03-21-2021 Coding Summary [employer] [id number] NurixWIvCF84JAo5VEZ8kTf yPSibhB9nuPNpB1s6EyNiBH 56eC89QFjzXFXpHpT7XzEki jsgbWFy S2usLxZzsVTzJvx+PHRhYmx lIHdpZHRoPScxMDAlJyBzdH ieBT6qXi6sIRSzLWMzwShwa HNlOiBj t6vhEUAnVMkuPY4qhJtnE2Q pkKY0FBPlr0z1Ev97qIE+PH XsMDN1fJscHYkml446MgQyz 9woZNI7 nWTyOIxmOUD8J12vg6H7QDT cUZNkEXR4pMF4jO5kxPvdoe pgD3VtxHVxEoV5RNN7kMRyb H3wbOwz rjrxaX7xXjf+K59UTC2MOJT BOU6RQtp7R4CyLosqqYR+PC 14ZHLlFX87zNDwlFIlz5bqy Al9WsXc IIXtNSK4kNbwFEzpk2PaDFF lM46qxRLpo3A7KIPgqUtegU TjUoDgkYN5pO4yDZwafuhym 2hvdzsn Qjjul9raml92qW82U86hDSu uRCFtLJH0ZLMtWSErhZlyjn 1zhE5pDa4+QVyzr4hwm0jdw Um7NvUj XOSortTthTzhKEH6i3LfWd4 5W0DmiDhvw3ZoJul5pt50fW Bsj4G2xNY0OFoxJMEehO9iW WxlZnQ6 AWYuIqDhhN61iFEzYFjqPn2 pqLqloBxxHD8wRSTihisqMA EqaM7pAUBlpBRhiJlmYW9nS TBpbjtm u197FjZcJYL7JZTclQJdM3A zxV9qKwSmYKVtQHErO1GfoF OzSEkrP196KPmoVsT7IROee yPpU5An WCOeyYpyDnB6f5P9Fm8Hl6S eoexnQGT6TTqdYYG7NuW6Gs PfZhK9H6BnEgn2WQNmiBzxQ X4uU3Kk AASlzbsdgzljkVP9ZNZiNOX aeK62hDXzNNieWf7xc1G2n9 50HDGwOMDozW25Sp5rbJglV TBwdCBU uJ3ppgdpr2dqsaytVsQdRVR iBPh5HZl4WYHlmNyiDfZlJK E5GxL9HTL0lRUffO3abVvba clzgD7g Oyc+O48gcM6qKVS2NHQ6mvh xFNMoxePpRE07GT03T3QfWr wvdGFibGU+PGRpdiBzdHlsZ Z3xKaJp c6bbh7WzWHmeW9KoXOPzAXj bBtk1IEUhKZH8qAY9fG5yCJ UuIFfrq0J4vLS2N3IgcoYet k8oj6qi PBThYVoyK90jmUHov9G0NDK xlPL7CEUdyJirEzWqfA89Vi c+HWAwpDdaf4PjZnogs6pgh 3obdPf6 VoQmKFKaffZolZoyKOY0h8O mHw33L03tZUapOWYyNYQyIU BxLLLpyLjfol5rbC0nRj5+P GNvbCB3 jEY2dZ4sNFCnKaR0BDiwA54 6ErQamXDgOlvlf3kga0gdzN s1IrOnKGNtmnStaEqcVQC8r 5SsVh30 A15mNOokPMKeYEBnLARdHVF teNxquf2usF2cGt4+PC9jb2 zopb25qT05aBI+MWDrAEN8k WxlPSdw ESHvfP8wKIfhXtO5WMClOoN oxD44uXNtIYzbWz5xqNjplL ltJC7vTHDnxtjge243JhCgv 2xkIDEw bCOvIYasWEK3M13wi6C3UOZ yCLJqAZI2hFC5nW8etOldou ogbGVmdDsgdmVydGljYWwtY PinL933 IHRvcDsnPlBhdGllbnQgTmF xAUx1X3TzJzi3CYUezNicZL 3siANwCPbbYc1frKbavWpnV E6pCFSr sekqy436IlHxt0wqRBIobGZ zSYzqVEP3N08lb3K8MICzQX RySZF0iVR8mX8biDcuqdsgh GVmdDsg ewKxpDwsOQpzMQxkE506VAW wpMmgTvLnsaBpHLNrvIQ2YH 91UP00mAAlj5K9aJZ1D1RhA GRpbmct yxxvpIN7GNLiEKWslU65Al8 imWzhFs0fLNLvKUW9JCOxnG PcS1TnjG0oNvIpXYYeAMHfI 3RleHQt CYboP157JKsqOmL1TUFcqnD nE6LfBIGqmXteQmU8i5P7Qz 9VO6F5CH75DS98fHUsp3Y5z YU7D5Yw LNJqhhoekkrizEA8HMBzCJG jhY96Fu2wlHwiDf7vKFCsXN E3TLBevYToK0NunB2tUcJsK DAwMDAw P1OsfKElZBdcL554WIjbPbA 9VOLswePqY2XuAMOioVqiUw Y7c2E0Eg4FOKg4VV01VY74p KMua6C9 gTW4D2MpDUSoxnuefxerdDN 2EGHuOYJddW79Gp2wmIfzUs 1yAXHfCQB5NJPzoJLtV6Rlm F4jArZe PDPtPQJtP0PhpMHfOJtsF70 9QBksVpR6AGKermHhX1UeTA VruUzfZkV7t8Y6Jk6JQOSfN W86PXN3 uFD4UN81AI47M7VrDthkyVI ibGU+PHRhYmxlIHdpZHRoPS ihDLBqWlQlpWhxLQ2fBs8oM GVyLWNv tBrckGQkNuAzr4ykEFMzSCz dZI3hbNuvG9EqoLP6ISZjm9 k4It62V84mN4ZhnPX+PGNvb XA2lNX9 xE2mYfOkFbZ2SNlrZ513TtJ rvJCgMipgv4qpr0jefDg4Ox R8GHVmfuRhjBbxTTW8f4ZjB o76U51r IHdpZHRoPSIxNSUiIHZhbGl jdl5bwA1xNy0+BHJsnXE1jV X5yO1aLmMgPcR5WOapG404O nRvcCIv Dcgdn2qga8jeeYf1UjDnVMR vdoNhwQypMRE7j3VlIk99R0 MryMyne9JeBvd1oz71vFZvc 3N8dJC5 H1NkRSRqmldnhGJnvHjnOK6 oUIDsiaeoFZXclZ9zEHJtG4 v0QeHzKlW9ZTmkB5FhiuT2G DEwcHQg BDqaZIR1A66pu0Q6DKSaFKV sGZV8pIH9wI2gaPpbeloywV VmdDsgdmVydGljYWwtYWxpZ 246IHRv uApnZVOywK4pKIEjvBEotOq qOH4rQNOkzhbkUeJEEQqMAL IgSnIsIENBUkwgRURXQVJEP R02FE72 mKUtw6I1hDV1Y1OsWFCxxzc oqcpdwUB7AQWrWFIzlH35uX GqTJvoFu6jv3R8u722IJDzD DUwaW47 So2xzKcsLHJalMOVvJ6wfiv nk1nwchqkDaFdFYAgBBh2AK x2ZDJzeJpeNqNwBNV9BmV5Q NC7iGKf bO2myVhjunkdhI3zFie+MTI bLWeiRAl7DNxwrZY+PHRkIH Q7tFyaFAuiFZQhqF3oWZSjP 2w4SdSd PyY6ZQakI8VaOICzobltTh2 1zI1uFtPjKhL2OMslD9Nqur F6QOKoaDZnAWeuMWF1Z64ib 4G7GSSg PFEeONA0mYR2fH8glCbifzf gbGVmdDsgdmVydGljYWwtYW rhH300XWAytXblPpW0CMovO XJzPC90 KK17hBOou8U5vKY2J5GnUYG fsgygzvoshLS3KDWeJVVtmK 23nFUuURtpFm7oj2Z0k296D DAuMDUw mK94Vf8ojZnkYARqaJQMrV8 xjcnug9yukrpqTtJhBHEwKK b2LUh0CZHxwEssCsGwMRO9U cR6FFZ5 tUTofO1zvDuukfqkoO3qCay +TUFMRTwvdGQ+KRNbUMR9sK juHJtkXSXgjH5wXIBfC4p9V iAwLjA1 KBegC7PzZGCzjrdnZr86xW2 sAyPnIsW1BYztW7BazfC0QP ZwaGRkFDrtLQH6E60fl6V8J CMwMDAw YFI6kHP4qS5mqXvroclfzVX mdDsgdmVydGljYWwtYWxpZ2 47OXZteWdsBjI2iG7sJsLdY G48QT07 A3YlMqtcfILpdQT+PHRhYmx lIHdpZHRoPScxMDAlJyBzdH pfBG9wCt5nBMKnYZUnkTffp HNlOiBj e7qeXXXpFLqaJK7dbFtaQ3Y xkUR6EQAqp8u2Wt25T12aA8 JvdXA+TBNjuEH9nQP4bO3pN zAlIiB2 NEizF089PpCftXNoFzxpr9v lr5cybPj5QjRoCTTztwOtyE nnJQM8i0YhVq62E32pMHsyS HRoPSIy MCHmEORhbKjhwe3skT4dPg9 +GFPkeOU7tXZ4mO1cHlTrQr S6SXgwI789RcSmmMEiRdciK 32nO2Tk dXA+TNJvReb7QKLckZpzRI9 saIBqJDmyEq8oKKY9DgPaCx UrBDtfE7OmWNWzrtjrqpnda OS7DWYy SCAeiS57El4jfBrpWg5nVBO fRCH4TLSgjZZyV0MbfS1wQk PwSCEvALNwQ5KzyBVjPDxvT 246IGxl IfI6IGNosqXdF0ApJVCfdWu sXdK2o0A9Tc9XcBzhiEMzIE 0mLjRdQTo2W2AzWug4RJLpe XcoYS0r gJHbQTanMw2liBaurTqmQI9 wAQNawpqfd451MqBpp5xrMX QyjBFgSSwiVKX2U52fl7U8W CMwMDAw QSE4hDW7xV1leVvzkehdmOG mdDsgdmVydGljYWwtYWxpZ2 71GCZwtFkzYmXPZlo4O6XcK qh3TDEx gGkyQC4fcXGpLXohDp4sqCv upIpcFR9xKJItldcpi247Ij Jqg9rqZEOhyUXwDYmmDNY0M 73es1T0 AUNuUAAiTUL9iOT4jJ2vfUz nbjogbGVmdDsgdmVydGljYW ucXXtyM774YUJinAokYz3GL lq4I9Ln Eaf5HNBctByvAM0tdSMkTUg jMu8goMqppGteLZ3uMGVymk xvq745EtNqc0utFNTlqFPcG GltZXM7 G00xk6U1DTPkXCQzTQE1lAK 3eH6ogXsxxcgtgHMqhMcsna HwzJtoHUvrFGndC915SGCwf DsnPlBh eWVyOjwvdGQ+DS87eq42Y5U nDnsgRmh3TPZjWLE2qSR4aD 1aHOJwNQxie5A2xDF4E2Acz fBxor3h b2x (more content not included)... [facility] Consent Formson 03-18-2021 Consent Forms [id number]#[id number] TGTIFF Normal [facility] .Auto Diff 1on 03-17-2021 Auto [place] % 10 % Normal 12 [facility] Comment on above: Performed By: #### 7 [id number], [id number] #### [facility] (DEFAULT) [address] [place] [address] 07986 Baso Abs# 0.1 x10 Normal 0.0-0.2 [facility] Comment on above: Performed By: #### 7 [id number], [id number] #### [facility] (DEFAULT) [address] [place] [address] 44712 Basophils/100 WBC (Bld) 1.2 % Normal 0.2-2.0 [facility] Comment on above: Performed By: #### 7 [id number], [id number] #### [facility] (DEFAULT) [address] [place] [address] 23662 Eos Abs# 0.3 x10 Normal 0.0-0.4 [facility] Comment on above: Performed By: #### 7 [id number], [id number] #### [facility] (DEFAULT) [address] [place] [address] 00593 Eosinophils/100 WBC (Bld) 4.8 % High 0.9-4.0 [facility] Comment on above: Performed By: #### 7 [id number], [id number] #### [facility] (DEFAULT) [address] [place] [address] 61230 Lymph Abs# 1.0 x10 Low 1.3-2.9 [facility] Comment on above: Performed By: #### 7 [id number], [id number] #### [facility] (DEFAULT) [address] [place] [address] 96752 Lymphocytes/100 WBC (Bld) 16 % Normal 14-48 [facility] Comment on above: Performed By: #### 7 [id number], [id number] #### [facility] (DEFAULT) [address] [place] [address] 73681 [place] Abs# 0.6 x10 Normal 0.0-0.8 [facility] Comment on above: Performed By: #### 7 [id number], [id number] #### [facility] (DEFAULT) [address] [place] [address] 54363 Neut Abs# 4.5 x10 Normal 1.5-9.2 [facility] Comment on above: Performed By: #### 7 [id number], [id number] #### [facility] (DEFAULT) [address] [place] [address] 34786 Neutrophils/100 WBC (Bld) 68 % Normal 44-88 [facility] Comment on above: Performed By: #### 7 [id number], [id number] #### [facility] (DEFAULT) [address] [place] [address] 89881 CBC w/ Auto Diffon 09-23-202 1 Erythrocyte distribution width (RBC) [Ratio] 15.4 % High 11.5-15.0 [facility] Comment on above: Performed By: #### 7 [id number], [id number] #### [facility] (DEFAULT) [address] [place] [address] 51552 Hematocrit (Bld) [Volume fraction] 36.1 % Normal 34.8-51.9 [facility] Comment on above: Performed By: #### 7 [id number], [id number] #### [facility] (DEFAULT) [address] [place] [address] 15819 Hemoglobin (Bld) [Mass/Vol] 11.7 g/dL Low 11.8-17.7 [facility] Comment on above: Performed By: #### 7 [id number], [id number] #### [facility] (DEFAULT) [address] [place] [address] Instr WBC 6.6 x10 Invalid Interpretation Code [facility] Comment on above: Performed By: #### 7 [id number], [id number] #### [facility] (DEFAULT) [address] [place] [address] 51835 Man Diff? Auto Normal [facility] Comment on above: Performed By: #### 7 [id number], [id number] #### [facility] (DEFAULT) [address] [place] [address] 50879 MCH (RBC) [Entitic mass] 25 pg Normal 24-34 [facility] Comment on above: Performed By: #### 7 [id number], [id number] #### [facility] (DEFAULT) [address] [place] [address] 07811 MCHC (RBC) [Mass/Vol] 32 g/dL Normal 26-37 [facility] Comment on above: Performed By: #### 7 [id number], [id number] #### [facility] (DEFAULT) [address] [place] [address] 30957 MCV (RBC) [Entitic vol] 76 fL Low 81-100 [facility] Comment on above: Performed By: #### 7 [id number], [id number] #### [facility] (DEFAULT) [address] [place] [address] 48298 Platelet 373 x10 Normal 138-427 [facility] Comment on above: Performed By: #### 7 [id number], [id number] #### [facility] (DEFAULT) [address] [place] [address] 84007 Platelet mean volume (Bld) [Entitic vol] 9.3 fL Normal 6.3-10.2 [facility] Comment on above: Performed By: #### 7 [id number], [id number] #### [facility] (DEFAULT) [address] [place] [address] 98643 RBC 4.73 x10 Normal 3.70-5.30 [facility] Comment on above: Performed By: #### 7 [id number], [id number] #### [facility] (DEFAULT) [address] [place] [address] 58801 WBC 6.6 x10 Normal 3.5-10.5 [facility] Comment on above: Result Comment: Slid e Reviewed Performed By: #### 7 [id number], [id number] #### [facility] (DEFAULT) [address] [place] [address] 65896 CMP Standardon 03-17-2021 eGFR Non AA >60 Invalid Interpretation Code [facility] Comment on above: Performed By: #### 1 [id number] ####[facility] (DEFAULT)[address] [place] [address] 64897 eGFR AA >60 Invalid Interpretation Code [facility] Comment on above: Result Comment: P[employer] maikel Kidney disease could be indicated at eGFRs of less than 60 ml/min/1.73m2. Kidney Failure is indicated at less than 15 ml/min/1.73m2 Performed By: #### 1 [id number] ####[facility] (DEFAULT)[address] [place] [address] 74936 Albumin [Mass/Vol] 2.7 g/dL Low 3.5-5.0 [facility] Comment on above: Performed By: #### 1 [id number] ####[facility] (DEFAULT)[address] [place] [address] Albumin/Globulin [Mass ratio] 0.7 {ratio} Low 1.4-2.6 [facility] Comment on above: Performed By: #### 1 [id number] ####[facility] (DEFAULT)[address] [place] [address] 88233 Alk Phos 92 IU/L High 32-91 [facility] Comment on above: Performed By: #### 1 [id number] ####[facility] (DEFAULT)[address] [place] [address] 79224 ALT [Catalytic activity/Vol] 178.0 U/L High 17.0-63.0 [facility] Comment on above: Performed By: #### 1 [id number] ####[facility] (DEFAULT)[address] [place] [address] 53261 Anion gap [Moles/Vol] 17.0 mmol/L Normal 5.0-19.0 [facility] Comment on above: Performed By: #### 1 [id number] ####[facility] (DEFAULT)[address] [place] [address] 75028 AST [Catalytic activity/Vol] 196 U/L High 15-41 [facility] Comment on above: Performed By: #### 1 [id number] ####[facility] (DEFAULT)[address] [place] [address] 48078 Bili Total 0.8 mg/dL Normal 0.3-1.2 [facility] Comment on above: Performed By: #### 1 [id number] ####[facility] (DEFAULT)[address] [place] [address] 53306 Calcium [Mass/Vol] 8.3 mg/dL Low 8.9-10.3 [facility] Comment on above: Performed By: #### 1 [id number] ####[facility] (DEFAULT)[address] [place] [address] 11852 Chloride [Moles/Vol] 102 mmol/L Normal 101-111 [facility] Comment on above: Performed By: #### 1 [id number] ####[facility] (DEFAULT)[address] [place] [address] 07013 CO2 [Moles/Vol] 25 mmol/L Normal 21-32 [facility] Comment on above: Performed By: #### 1 [id number] ####[facility] (DEFAULT)[address] [place] [address] 26787 Creatinine [Mass/Vol] 0.88 mg/dL Low 0.90-1.30 [facility] Comment on above: Performed By: #### 1 [id number] ####[facility] (DEFAULT)[address] [place] [address] 33777 Globulin (S) [Mass/Vol] 4.0 g/dL Normal 1.5-4.3 [facility] Comment on above: Performed By: #### 1 [id number] ####[facility] (DEFAULT)[address] [place] [address] 67656 Glucose [Mass/Vol] 117.0 mg/dL Normal 74.0-118.0 [facility] Comment on above: Performed By: #### 1 [id number] ####[facility] (DEFAULT)[address] [place] [address] 36639 Osmolality 282 mOsm/L Invalid Interpretation Code [facility] Comment on above: Performed By: #### 1 [id number] ####[facility] (DEFAULT)[address] [place] [address] 44226 Potassium [Moles/Vol] 3.8 mmol/L Normal 3.6-5.1 [facility] Comment on above: Result Comment: Spok e with nurses on floor - they could not explain why the rise in potassium other than the fact that he is eating better Performed By: #### 1 [id number] ####[facility] (DEFAULT)[address] [place] [address] 72347 Protein [Mass/Vol] 6.7 g/dL Normal 6.5-8.1 [facility] Comment on above: Performed By: #### 1 [id number] ####[facility] (DEFAULT)[address] [place] [address] 25264 Sodium [Moles/Vol] 140.0 mmol/L Normal 136.0-144.0 [facility] Comment on above: Performed By: #### 1 [id number] ####[facility] (DEFAULT)[address] [place] [address] 65939 Urea nitrogen [Mass/Vol] 17 mg/dL Normal 8-26 [facility] Comment on above: Performed By: #### 1 [id number] ####[facility] (DEFAULT)[address] [place] [address] Urea nitrogen/Creatinine [Mass ratio] 19.0 mg/mg High 4.6-16.2 [facility] Comment on above: Performed By: #### 1 [id number] ####[facility] (DEFAULT)[address] [place] [address] Extra Redon 03-17-2021 Tube Collected Yes Invalid Interpretation Code [facility] Comment on above: Performed By: #### 2 [id number], [id number] #### [facility] (DEFAULT) [address] [place] [address] Inpatient Patient Summaryon 03-17-2021 Inpatient Patient Summary [address] [address] Patient Discharge Instructions Name: LINO PEÑA Jr : 1950 Patient Address: [address] [place] [address] Primary Care Provider: Name: FABIO HERRERA After you are discharged if you find you have any questions, please, call [phone] ext [phone] to speak to a nurse. Discharge Diagnosis: Weakness Prescription Information: If you have been given a prescription for narcotics, seek immediate medical attention if you have any difficulty breathing or any sudden status changes such as confusion and sleepiness. If you or anyone you know is experiencing suicidal thoughts, mental health, alcohol and/or drug addiction problems; contact the [facility] 15/01 Crisis Hotline -Text 4HUMW fs 745214. If you received any narcotics, sedation, or any other medication that causes drowsiness for the next 24 hours, unless otherwise directed: ? Do not drive a car. ? Do not operate machinery such as power tools, lawn mowers, drills, sewing machines, or stoves ? Avoid alcoholic beverages and drugs for allergies, nerves, or sleep ? Do not make important personal or business decisions or sign any legal documents [facility] would like to thank you for allowing us to assist you with your healthcare needs. The following includes patient education materials and information regarding your injury/illness. LINO PEÑA Jr has been given the following list of follow-up instructions, prescriptions, and patient education materials: Follow-up Instructions With: Address: When: JOHNATHANManoharRICKIE DRAKE [address] [place] [address] Business (1) 05/10/2021 1:00 PM With: Address: When: NAKUL Marie at [address] [address] Appt: Tuesday, April 13, 2021 at 2:00 pm 04/13/2021 2:00 PM With: Address: When: FABIO HERRERA [facility] [place] [address] Business (1) Medications During the course of your visit, your medication list was updated with the most current information. The details of those changes are reflected below: New Medications [facility], [address] [place] [id number], [phone] apixaban (Eliquis 5 mg oral tablet) 1 tab(s) Oral 2 times a day. Refills: 0. clopidogrel (Plavix 75 mg oral tablet) 1 tab(s) Oral every day. Refills: 0. Medications to Continue That Have Not Changed Other Medications albuterol (Albuterol (Eqv-ProAir HFA)) 2 puff(s) Inhalation every 6 hours as needed shortness of breath or wheezing. aspirin (aspirin 81 mg oral tablet) 1 tab(s) Oral every day. atorvastatin (atorvastatin 80 mg oral tablet) 1 tab(s) Oral once a day (at bedtime). famotidine (Pepcid 20 mg oral tablet) 1 tab(s) Oral 2 times a day. loperamide (Imodium A-D 2 mg oral tablet) 1 tab(s) Oral 4 times a day as needed for loose stool. metoprolol (Metoprolol Tartrate 25 mg oral tablet) 1 tab(s) Oral 2 times a day. pantoprazole (pantoprazole 40 mg oral delayed release tablet) 1 tab(s) Oral every day. No Longer Take the Following Medications ticagrelor (Brilinta (ticagrelor) 90 mg oral tablet) 1 tab(s) Oral 2 times a day. warfarin (warfarin 5 mg oral tablet) 1 tab(s) Oral every day. It is important to always keep an active list of medications available so that you can share with other providers and manage your medications appropriately. As an additional courtesy, we are also providing you with your final active medications list that you can keep with you. albuterol (Albuterol (Eqv-ProAir HFA)) 2 puff(s) Inhalation every 6 hours as needed shortness of breath or wheezing. apixaban (Eliquis 5 mg oral tablet) 1 tab(s) Oral 2 times a day. Refills: 0. aspirin (aspirin 81 mg oral tablet) 1 tab(s) Oral every day. atorvastatin (atorvastatin 80 mg oral tablet) 1 tab(s) Oral once a day (at bedtime). clopidogrel (Plavix 75 mg oral tablet) 1 tab(s) Oral every day. Refills: 0. famotidine (Pepcid 20 mg oral tablet) 1 tab(s) Oral 2 times a day. loperamide (Imodium A-D 2 mg oral tablet) 1 tab(s) Oral 4 times a day as needed for loose stool. metoprolol (Metoprolol Tartrate 25 mg oral tablet) 1 tab(s) Oral 2 times a day. pantoprazole (pantoprazole 40 mg oral delayed release tablet) 1 tab(s) Oral every day. Take only the medications listed above. Contact your doctor prior to taking any medications not on this list. Medication leaflets, if any, will display below Diet & Activity Patient Activity Level: As Tolerated Patient Diet: Other: Low fat Patient Activity Restrictions: Other: Patient education materials, if any, will display below Cholelithiasis Cholelithiasis is also called gallstones. It is a kind of gallbladder disease. The gallbladder is an organ (more content not included)... Normal [facility] PTon 03-17-2021 INR Coag (PPP) [Relative time] 2.60 {INR} High 0.91-1.11 [facility] Comment on above: Performed By: #### 2 [id number] #### [facility] (DEFAULT) [address] [place] [address] PT 26.8 second(s) High 9.7-11.8 [facility] Comment on above: Performed By: #### 2 [id number] #### [facility] (DEFAULT) [address] [place] [address] Progress Note - Nurseon 02-24 Progress Note - Nurse Ultrasound being done. [Electronically Signed on: 03/17/2021 07:30 EDT] Nya Xiong RN [Verified on: 03/17/2021 07:30 EDT] Nya Xiong RN Normal [facility] US Liveron 03-17-2021 US Liver EXAM: US Liver HISTORY: elevated liver enzymes COMPARISON: None TECHNIQUE: Ultrasound study of the liver was performed. FINDINGS: Liver measures 15.9 cm in length which is within normal limits. No obvious hepatic mass or intrahepatic ductal dilatation. Slightly lobulated contour of the liver, correlate for early and/or mild cirrhosis. In the gallbladder there is a prominent 1.6 cm calculus near the gallbladder neck. There is mild gallbladder wall thickening measuring up to 0.5 cm in thickness. Correlate to exclude any possibility of cholecystitis. The wall thickening could be related to hypoproteinemia. No obvious pancreatic mass or ductal dilatation suggested. Views of the right kidney demonstrate an area of increased echogenicity at the near mid-level which may represent small lipoma or angiomyolipoma measuring 1.6 x 1.5 x 1.0 cm. Other possibility would be less likely. IMPRESSION: Ultrasound study of the liver demonstrates findings which can be correlated for early and/or mild cirrhosis. No obvious focal mass or intrahepatic ductal dilatation. Prominent gallstone in the gallbladder near the gallbladder neck with mild gallbladder wall thickening which is nonspecific, correlate clinically to exclude any possibility of cholecystitis, the wall thickening could be related to hypoproteinemia. Likely small lipoma or angiomyolipoma in the right kidney. Possibility would be less likely. Final Dictated by: Italo Morataya MD Dictated DT/TM: 03/17/21 9:28 Signed (Electronic Signature): Italo Morataya MD 03/17/21 4:10 pm Technologist: DELFINO Fountain [facility] .Auto Diff 1on 03-16-2021 Auto [place] % 9 % Normal 1-12 [facility] Comment on above: Performed By: #### 1 [id number] #### [facility] (DEFAULT) [address] [place] [id number] Baso Abs# 0.0 x10 Normal 0.0-0.2 [facility] Comment on above: Performed By: #### 1 [id number] #### [facility] (DEFAULT) [address] [place] [id number] Basophils/100 WBC (Bld) 0.6 % Normal 0.2-2.0 [facility] Comment on above: Performed By: #### 1 [id number] #### [facility] (DEFAULT) [address] [place] [id number] Eos Abs# 0.2 x10 Normal 0.0-0.4 [facility] Comment on above: Performed By: #### 1 [id number] #### [facility] (DEFAULT) [address] [place] [address] 17939 Eosinophils/100 WBC (Bld) 3.8 % Normal 0.9-4.0 [facility] Comment on above: Performed By: #### 1 [id number], [id number] #### [facility] (DEFAULT) [address] [place] [address] 29498 Lymph Abs# 0.9 x10 Low 1.3-2.9 [facility] Comment on above: Performed By: #### 1 [id number], [id number] #### [facility] (DEFAULT) [address] [place] [address] 59335 Lymphocytes/100 WBC (Bld) 14 % Normal 14-48 [facility] Comment on above: Performed By: #### 1 [id number] #### [facility] (DEFAULT) [address] [place] [address] [place] Abs# 0.6 x10 Normal 0.0-0.8 [facility] Comment on above: Performed By: #### 1 [id number], [id number] #### [facility] (DEFAULT) [address] [place] [address] Neut Abs# 4.6 x10 Normal 1.5-9.2 [facility] Comment on above: Performed By: #### 1 [id number], [id number] #### [facility] (DEFAULT) [address] [place] [address] Neutrophils/100 WBC (Bld) 73 % Normal 44-88 [facility] Comment on above: Performed By: #### 1 [id number], [id number] #### [facility] (DEFAULT) [address] [place] [address] CBC w/ Auto Diffon 1 Erythrocyte distribution width (RBC) [Ratio] 15.1 % High 11.5-15.0 [facility] Comment on above: Performed By: #### 1 [id number], [id number] #### [facility] (DEFAULT) [address] [place] [address] Hematocrit (Bld) [Volume fraction] 36.9 % Normal 34.8-51.9 [facility] Comment on above: Performed By: #### 1 [id number], [id number] #### [facility] (DEFAULT) [address] [place] [address] Hemoglobin (Bld) [Mass/Vol] 12.1 g/dL Normal 11.8-17.7 [facility] Comment on above: Performed By: #### 1 [id number], [id number] #### [facility] (DEFAULT) [address] [place] [address] Instr WBC 6.4 x10 Invalid Interpretation Code [facility] Comment on above: Performed By: #### 1 [id number], [id number] #### [facility] (DEFAULT) [address] [place] [address] Man Diff? Auto Normal [facility] Comment on above: Performed By: #### 1 [id number], [id number] #### [facility] (DEFAULT) [address] [place] [address] 51091 MCH (RBC) [Entitic mass] 25 pg Normal 24-34 [facility] Comment on above: Performed By: #### 1 [id number], [id number] #### [facility] (DEFAULT) [address] [place] [address] 91490 MCHC (RBC) [Mass/Vol] 33 g/dL Normal 26-37 [facility] Comment on above: Performed By: #### 1 [id number], [id number] #### [facility] (DEFAULT) [address] [place] [address] 49917 MCV (RBC) [Entitic vol] 76 fL Low 81-100 [facility] Comment on above: Performed By: #### 1 [id number], [id number] #### [facility] (DEFAULT) [address] [place] [address] 91244 Platelet 339 x10 Normal 138-427 [facility] Comment on above: Performed By: #### 1 [id number], [id number] #### [facility] (DEFAULT) [address] [place] [address] 30777 Platelet mean volume (Bld) [Entitic vol] 9.3 fL Normal 6.3-10.2 [facility] Comment on above: Performed By: #### 1 [id number], [id number] #### [facility] (DEFAULT) [address] [place] [address] 20435 RBC 4.88 x10 Normal 3.70-5.30 [facility] Comment on above: Performed By: #### 1 [id number], [id number] #### [facility] (DEFAULT) [address] [place] [address] 50295 WBC 6.4 x10 Normal 3.5-10.5 [facility] Comment on above: Performed By: #### 1 [id number], [id number] #### [facility] (DEFAULT) [address] [place] [address] 87078 CMP Standardon 03-16-2021 eGFR Non AA >60 Invalid Interpretation Code [facility] Comment on above: Performed By: #### 1 [id number] ####[facility] (DEFAULT)[address] [place] [address] 65738 eGFR AA >60 Invalid Interpretation Code [facility] Comment on above: Result Comment: Pipe [employer] Builder maikel Kidney disease could be indicated at eGFRs of less than 60 ml/min/1.73m2. Kidney Failure is indicated at less than 15 ml/min/1.73m2 Performed By: #### 1 [id number] ####[facility] (DEFAULT)[address] [place] [address] 40217 Albumin [Mass/Vol] 2.9 g/dL Low 3.5-5.0 [facility] Comment on above: Performed By: #### 1 [id number] ####[facility] (DEFAULT)[address] [place] [address] 66368 Albumin/Globulin [Mass ratio] 0.8 {ratio} Low 1.4-2.6 [facility] Comment on above: Performed By: #### 1 [id number] ####[facility] (DEFAULT)[address] [place] [address] 75053 Alk Phos 92 IU/L High 32-91 [facility] Comment on above: Performed By: #### 1 [id number] ####[facility] (DEFAULT)[address] [place] [address] 98909 ALT [Catalytic activity/Vol] 181.0 U/L High 17.0-63.0 [facility] Comment on above: Performed By: #### 1 [id number] ####[facility] (DEFAULT)[address] [place] [address] 78774 Anion gap [Moles/Vol] 17.0 mmol/L Normal 5.0-19.0 [facility] Comment on above: Performed By: #### 1 [id number] ####[facility] (DEFAULT)[address] [place] [address] 31536 AST [Catalytic activity/Vol] 245 U/L High 15-41 [facility] Comment on above: Performed By: #### 1 [id number] ####[facility] (DEFAULT)[address] [place] [address] 53880 Bili Total 1.1 mg/dL Normal 0.3-1.2 [facility] Comment on above: Performed By: #### 1 [id number] ####[facility] (DEFAULT)[address] [place] [address] 32832 Calcium [Mass/Vol] 8.4 mg/dL Low 8.9-10.3 [facility] Comment on above: Performed By: #### 1 [id number] ####[facility] (DEFAULT)[address] [place] [address] 70956 Chloride [Moles/Vol] 99 mmol/L Low 101-111 [facility] Comment on above: Performed By: #### 1 [id number] ####[facility] (DEFAULT)[address] [place] [address] 04081 CO2 [Moles/Vol] 23 mmol/L Normal 21-32 [facility] Comment on above: Performed By: #### 1 [id number] ####[facility] (DEFAULT)[address] [place] [address] 40197 Creatinine [Mass/Vol] 0.90 mg/dL Normal 0.90-1.30 [facility] Comment on above: Performed By: #### 1 [id number] ####[facility] (DEFAULT)[address] [place] [address] 43070 Globulin (S) [Mass/Vol] 3.8 g/dL Normal 1.5-4.3 [facility] Comment on above: Performed By: #### 1 [id number] ####[facility] (DEFAULT)[address] [place] [address] 47064 Glucose [Mass/Vol] 99.0 mg/dL Normal 74.0-118.0 [facility] Comment on above: Performed By: #### 1 [id number] ####[facility] (DEFAULT)[address] [place] [address] 11344 Osmolality 274 mOsm/L Invalid Interpretation Code [facility] Comment on above: Performed By: #### 1 [id number] ####[facility] (DEFAULT)[address] [place] [address] 55364 Potassium [Moles/Vol] 3.3 mmol/L Low 3.6-5.1 [facility] Comment on above: Performed By: #### 1 [id number] ####[facility] (DEFAULT)[address] [place] [address] 00760 Protein [Mass/Vol] 6.7 g/dL Normal 6.5-8.1 [facility] Comment on above: Performed By: #### 1 [id number] ####[facility] (DEFAULT)[address] [place] [address] 94142 Sodium [Moles/Vol] 136.0 mmol/L Normal 136.0-144.0 [facility] Comment on above: Performed By: #### 1 [id number] ####[facility] (DEFAULT)[address] [place] [address] 12496 Urea nitrogen [Mass/Vol] 17 mg/dL Normal 8-26 [facility] Comment on above: Performed By: #### 1 [id number] ####[facility] (DEFAULT)[address] [place] [address] 48768 Urea nitrogen/Creatinine [Mass ratio] 19.0 mg/mg High 4.6-16.2 [facility] Comment on above: Performed By: #### 1 [id number] ####[facility] (DEFAULT)[address] [place] [address] 80422 Nutrition Noteon 03-16-2021 Nutrition Note Supplements d/c toda y by mortgage loan underwriter; had not been taking them. Pt with overall improvement of appetite, currently on a regular diet with last 24+hrs avg 75-100% of meals. Will monitor for changes. Normal [facility] Pharmacy Noteon 03-16-2021 Pharmacy Note I have personally reviewed this patient's current medication list including prescription medications, OTC products, vitamins and supplements for the following: Home Medication Review Home medications reviewed as follows: Home Medications (9) Active Albuterol (Eqv-ProAir HFA) 2 puff(s), PRN, INH, q6hr (int) aspirin 81 mg oral tablet 81 mg = 1 tab(s), PO, Daily atorvastatin 80 mg oral tablet 80 mg = 1 tab(s), PO, Once a day (at bedtime) Brilinta (ticagrelor) 90 mg oral tablet 90 mg = 1 tab(s), PO, BID Imodium A-D 2 mg oral tablet 2 mg = 1 tab(s), PRN, PO, QID Metoprolol Tartrate 25 mg oral tablet 25 mg = 1 tab(s), PO, BID pantoprazole 40 mg oral delayed release tablet 40 mg = 1 tab(s), PO, Daily Pepcid 20 mg oral tablet 20 mg = 1 tab(s), PO, BID warfarin 5 mg oral tablet 5 mg = 1 tab(s), PO, Daily Status of Medication History: Complete Source of Information: External Medication Review/Pharmacy Records and [facility] discharge summary - Patient with non-compliance. Also does not have prescription insurance. Renal Function: Estimated CrCl: 57.76 ml/min Automatic pharmacy renal dose adjusted medication(s): None currently Action: Continue to monitor renal function. Anticoagulation or Prophylaxis: Warfarin -discontinued as patient is non-compliant and will have difficulty with management. Transitioning to Eliquis 5mg PO BID (given free 30 day voucher). Per discussion with hospitalist 03/15/21 and based on INR of 4.73 the same day, hold warfarin x 2 days and have patient start Eliquis on 03/17/21. Eliquis Patient Assistance application printed and given to patient care. Antibiotics: None Action: None required Pain Management: Opioid naive: Yes prn narcotic pain medication(s): Tramadol - moderate pain prn non-narcotic pain medication(s): Acetaminophen - mild pain Action: PDMP Reviewed: MAR 14, 2021 14:20 June Smith PharmD. Risk factors reviewed. Patient not currently requiring prn pain medications. Continue to monitor patient's pain control. [Electronically Signed on: 03/16/2021 12:29 EDT] June Smith PharmD [Verified on: 03/16/2021 12:29 EDT] June Smith PharmD Normal [facility] 03-15-2021 Tube Collected Yes Invalid Interpretation Code [facility] Comment on above: Performed By: #### 2 [id number], [id number], [id number] #### [facility] (DEFAULT) [address] [place] [address] 94907 Performed By: #### 2 [id number], [id number], [id number] ####[facility] (DEFAULT)[address] [place] [address] 63345 PTon 03-15-2021 INR Coag (PPP) [Relative time] 4.73 {INR} High 0.91-1.11 [facility] Comment on above: Performed By: #### 2 [id number], [id number], [id number] ####[facility] (DEFAULT)[address] [place] [address] PT 47.4 second(s) High 9.7-11.8 [facility] Comment on above: Performed By: #### 2 [id number], [id number], [id number] ####[facility] (DEFAULT)[address] [place] [address] Consent Formson 03-14-2021 Consent Forms [id number] [id number] Normal [facility] Extra [place] 03-14-2021 Tube Collected Yes Invalid Interpretation Code [facility] Comment on above: Performed By: #### 1 [id number], [id number], [id number], [id number] ####[facility] (DEFAULT)[address] [place] [address] 39520 Hepatic Function Panel Stand [facility] 03-14-2021 Albumin [Mass/Vol] 2.9 g/dL Low 3.5-5.0 [facility] Comment on above: Performed By: #### 1 [id number], [id number], [id number], [id number] ####[facility] (DEFAULT)[address] [place] [address] 96589 Albumin/Globulin [Mass ratio] 0.8 {ratio} Low 1.4-2.6 [facility] Comment on above: Performed By: #### 1 [id number], [id number], [id number], [id number] ####[facility] (DEFAULT)[address] [place] [address] 09817 Alk Phos 68 IU/L Normal 32-91 [facility] Comment on above: Performed By: #### 1 [id number], [id number], , [id number] ####[facility] (DEFAULT)[address] [place] [address] ALT [Catalytic activity/Vol] 120.0 U/L High 17.0-63.0 [facility] Comment on above: Performed By: #### 1 [id number], [id number], , [id number] ####[facility] (DEFAULT)[address] [place] [address] AST [Catalytic activity/Vol] 186 U/L High 15-41 [facility] Comment on above: Performed By: #### 1 [id number], , , [id number] ####[facility] (DEFAULT)[address] [place] [address] Bili Direct 0.20 mg/dL Normal 0.10-0.50 [facility] Comment on above: Performed By: #### 1 [id number], [id number], , [id number] ####[facility] (DEFAULT)[address] [place] [address] Bili Indirect 1.1 mg/dL High 0.2-0.8 [facility] Comment on above: Performed By: #### 1 [id number], [id number], , [id number] ####[facility] (DEFAULT)[address] [place] [address] Bili Total 1.3 mg/dL High 0.3-1.2 [facility] Comment on above: Performed By: #### 1 [id number], [id number], , [id number] ####[facility] (DEFAULT)[address] [place] [address] Globulin (S) [Mass/Vol] 3.8 g/dL Normal 1.5-4.3 [facility] Comment on above: Performed By: #### 1 [id number], [id number], , [id number] ####[facility] (DEFAULT)[address] [place] [address] Protein [Mass/Vol] 6.7 g/dL Normal 6.5-8.1 [facility] Comment on above: Performed By: #### 1 [id number], [id number], [id number], [id number] ####[facility] (DEFAULT)[address] [place] [address] 47099 Nutrition Noteon 03-14-2021 Nutrition Note Pt continues with po or rickie and po intake. Averaging 0-75% of meals and snacks. Diet advanced from CLD to Reg 03/13. Continues with diarrhea and fatigue; noted last BM this am. No new labs to review. No new wts to assess wt change status since admission. Continue to encourage po and supplement intake. Recommend bland diet as diarrhea continues. Agree with Kyung Mcqueen MS, RD, LD recommendation on 03/12 of trial of probiotics and vitamin C, D supplementation. Will continue to follow and monitor po intake, wt and lab values. Pt reports to not like Ensure compact; removed from diet order. Spoke with TOLENTINO about offering a smoothie to pt tray instead; will add if pt agreeable. Normal [facility] PTon 03-14-2021 INR Coag (PPP) [Relative time] 3.01 {INR} High 0.91-1.11 [facility] Comment on above: Performed By: #### 1 [id number], [id number], [id number], [id number] ####[facility] (DEFAULT)[address] [place] [address] 54406 PT 30.8 second(s) High 9.7-11.8 [facility] Comment on above: Performed By: #### 1 [id number], [id number], [id number], [id number] ####[facility] (DEFAULT)[address] [place] [address] Pharmacy Noteon 03-14-2021 Pharmacy Note I have personally reviewed this patient's current medication list including prescription medications, OTC products, vitamins and supplements for the following: Home Medication Review Home medications reviewed as follows: Home Medications (9) Active Albuterol (Eqv-ProAir HFA) 2 puff(s), PRN, INH, q6hr (int) aspirin 81 mg oral tablet 81 mg = 1 tab(s), PO, Daily atorvastatin 80 mg oral tablet 80 mg = 1 tab(s), PO, Once a day (at bedtime) Brilinta (ticagrelor) 90 mg oral tablet 90 mg = 1 tab(s), PO, BID Imodium A-D 2 mg oral tablet 2 mg = 1 tab(s), PRN, PO, QID Metoprolol Tartrate 25 mg oral tablet 25 mg = 1 tab(s), PO, BID pantoprazole 40 mg oral delayed release tablet 40 mg = 1 tab(s), PO, Daily Pepcid 20 mg oral tablet 20 mg = 1 tab(s), PO, BID warfarin 5 mg oral tablet 5 mg = 1 tab(s), PO, Daily Status of Medication History: Complete Source of Information: External Medication Review/Pharmacy Records and [facility] discharge summary Renal Function: Estimated CrCl: 57.76 ml/min Automatic pharmacy renal dose adjusted medication(s): None currently Action: Continue to monitor renal function. Anticoagulation or Prophylaxis: Warfarin - pharmacy to dose This is a 70 Yearsyo MALE with a history of A. Fib presenting for IP anticoagulation monitoring and adjustment per pharmacy to dose protocol. This patient is on home dose. The patient's home dose is 5mg. INR 3.01 is therapuetic for this patient for goal INR range 2.0-3.0. No hematuria, epistaxis and rectal bleeding reported. The plan is to give 5 mg of warfarin today with the next INR draw tomorrow. Antibiotics: None Action: None required Pain Management: Opioid naive: Yes prn narcotic pain medication(s): Tramadol - moderate pain prn non-narcotic pain medication(s): Acetaminophen - mild pain Action: PDMP Reviewed: MAR 14, 2021 14:20 June Smith PharmD. Risk factors reviewed. Continue to monitor patient's pain control. [Electronically Signed on: 03/14/2021 14:38 EDT] June Smith PharmD [Verified on: 03/14/2021 14:38 EDT] June Smith PharmD Normal [facility] Extra [place] 03-13-2021 Tube Collected Yes Invalid Interpretation Code [facility] Comment on above: Performed By: #### 1 [id number], [id number], [id number] ####[facility] (DEFAULT)[address] [place] [address] PTon 03-13-2021 INR Coag (PPP) [Relative time] 1.87 {INR} High 0.91-1.11 [facility] Comment on above: Performed By: #### 1 [id number], [id number], [id number] ####[facility] (DEFAULT)[address] [place] [address] PT 19.6 second(s) High 9.7-11.8 [facility] Comment on above: Performed By: #### 1 [id number], [id number], [id number] ####[facility] (DEFAULT)[address] [place] [address] Pharmacy Noteon 03-13-2021 Pharmacy Note This is a 70 Yearsyo MALE with a history of * presenting for IP anticoagulation monitoring and adjustment per pharmacy to dose protocol. This patient is on home dose. The patient's home dose is 5mg daily*. INR 1.87 is sub therapuetic for this patient for goal INR range 2.0-3.0. No hematuria, epistaxis and rectal bleeding reported. The plan is to give 7.5 mg of warfarin today with the next INR draw 03-14-2021. [Electronically Signed on: 03/13/2021 09:43 EDT] Nya Paulino [Verified on: 03/13/2021 09:43 EDT] Nya Paulino [facility] Progress Note - Nurseon 02-23 Progress Note - Nurse patient lying in bed laughing at commercials on tv. Dried blood under patient's nose. Patient given damp wash cloth to clean nose and he cleans his hands and holds wash cloth. Tissues with blood spots on them in a line from bathroom to bed on the floor. Patient instructed to throw tissues into the garbage bag on his overbed table. [Electronically Signed on: 03/13/2021 17:01 EDT] Nya Xiong RN [Verified on: 03/13/2021 17:01 EDT] Nya Xiong RN [facility] Progress Note - Nurse In bed with arms behind head and legs crossed watching tv. [Electronically Signed on: 03/13/2021 15:09 EDT] Nya Xiong RN [Verified on: 03/13/2021 15:09 EDT] Nya Xiong RN [facility] Progress Note - Nurse Puts publication editor light in bathroom. Relates bloody nose. Dr. Keller informed and order received for afrin. Very mild bleeding noted. stops when tissue applied [Electronically Signed on: 03/13/2021 15:09 EDT] Nya Xiong RN [Verified on: 03/13/2021 15:09 EDT] Nya Xiong RN [facility] Progress Note - Nurse Nurse enters room and patient is lying in bed watching tv. Room has odor of urine. Patient informed he is out of isolation due to quarantine ending. Informed he should get up to bathroom to change saturated pull up. Patient slow to get up. Instructed he should be getting up to chair for meals and he needs to have family bring in clothes for therapy. Also informed patient he is here for therapy and needs to increase activity. Denies incontinence at home. So patient instructed to get up to bathroom when has to urinate. Aide in to assist patient with bath as was incontinent of urine and stool. Patient needed much encouragement and instruction to clean self. Not motivated to do any personal care. [Electronically Signed on: 03/13/2021 11:13 EDT] Nya Xiong RN [Verified on: 03/13/2021 11:13 EDT] Nya Xiong RN [facility] Standardon 03-12-2021 eGFR Non AA >60 Invalid Interpretation Code [facility] Comment on above: Performed By: #### 1 [id number], [id number], [id number] ####[facility] (DEFAULT)[address] [place] [address] eGFR AA >60 Invalid Interpretation Code [facility] Comment on above: Result Comment: Pipe Organ Builder maikel Kidney disease could be indicated at eGFRs of less than 60 ml/min/1.73m2. Kidney Failure is indicated at less than 15 ml/min/1.73m2 Performed By: #### 1 [id number], [id number], ####[facility] (DEFAULT)[address] [place] [address] 46876 Anion gap [Moles/Vol] 20.0 mmol/L High 5.0-19.0 [facility] Comment on above: Performed By: #### 1 [id number], [id number], ####[facility] (DEFAULT)[address] [place] [address] 66006 Calcium [Mass/Vol] 8.1 mg/dL Low 8.9-10.3 [facility] Comment on above: Performed By: #### 1 [id number], , ####[facility] (DEFAULT)[address] [place] [address] 88310 Chloride [Moles/Vol] 94 mmol/L Low 101-111 [facility] Comment on above: Performed By: #### 1 [id number], [id number], ####[facility] (DEFAULT)[address] [place] [address] 77955 CO2 [Moles/Vol] 22 mmol/L Normal 21-32 [facility] [facility] Comment on above: Performed By: #### 1 [id number], [id number], ####[facility] (DEFAULT)[address] [place] [id number] Creatinine [Mass/Vol] 1.05 mg/dL Normal 0.90-1.30 [facility] Comment on above: Performed By: #### 1 [id number], [id number], ####[facility] (DEFAULT)[address] [place] [address] 01841 Glucose [Mass/Vol] 91.0 mg/dL Normal 74.0-118.0 [facility] Comment on above: Performed By: #### 1 [id number], [id number], ####[facility] (DEFAULT)[address] [place] [address] 76416 Osmolality 265 mOsm/L Invalid Interpretation Code [facility] Comment on above: Performed By: #### 1 [id number], [id number], ####[facility] (DEFAULT)[address] [place] [address] Potassium [Moles/Vol] 3.8 mmol/L Normal 3.6-5.1 [facility] Comment on above: Performed By: #### 1 [id number], [id number], [id number] ####[facility] (DEFAULT)[address] [place] [address] 97218 Sodium [Moles/Vol] 132.0 mmol/L Low 136.0-144.0 [facility] Comment on above: Performed By: #### 1 [id number], [id number] ####[facility] (DEFAULT)[address] [place] [address] 97614 Urea nitrogen [Mass/Vol] 16 mg/dL Normal 8-26 [facility] Comment on above: Performed By: #### 1 [id number], [id number], [id number] ####[facility] (DEFAULT)[address] [place] [address] 13676 Urea nitrogen/Creatinine [Mass ratio] 15.0 mg/mg Normal 4.6-16.2 [facility] Comment on above: Performed By: #### 1 [id number], [id number], ####[facility] (DEFAULT)[address] [place] [address] 98723 Extra [place] 03-12-2021 Tube Collected Yes Invalid Interpretation Code [facility] Comment on above: Performed By: #### 1 [id number], [id number], [id number] ####[facility] (DEFAULT)[address] [place] [address] 48301 Nutrition Noteon 03-12-2021 SARS-CoV-2 (COVID-19) RNA ALEXI+probe Ql (Unsp spec) Pt admitted under Swing bed program d/t weakness r/t COVID, COVID colitis. Pt intially placed on a Regular diet, downgraded to clear liquids today d/t ongoing diarrhea, nausea. No wt hx available. Ensure Compact ordered TIDAC; adjusted to TIDWM vs being given before meals. Loperamide BID and PRN scheduled, would encourage trial of BRAT type diet to provide more nutrients along w/ probiotic and as well as Vit C, Vit D supplementation. Na, Ca low, suspect d/t suboptimal intake. Pt appears at high nutrition risk at this time d/t ongoing diarrhea with poor po; full nutrition assessment completed. Will continue to monitor. Normal [facility] PTon 03-12-2021 INR Coag (PPP) [Relative time] 1.21 {INR} High 0.91-1.11 [facility] Comment on above: Performed By: #### 1 [id number], [id number], [id number] ####[facility] (DEFAULT)[address] [place] [address] PT 13.0 second(s) High 9.7-11.8 [facility] Comment on above: Performed By: #### 1 [id number], [id number], [id number] ####[facility] (DEFAULT)[address] [place] [address] Pharmacy Noteon 03-12-2021 Pharmacy Note I have reviewed this patient's current medication list including prescription medications, OTC products, vitamins and supplements for the following: Med Rec: _ from external pharmacy records and patient medical records Active Medications albuterol: 2 puff(s), INH, q6hr (int), PRN: shortness of breath or wheezing, aspirin: 81 mg = 1 tab(s), PO, Daily, atorvastatin: 80 mg = 1 tab(s), PO, Once a day (at bedtime), famotidine: 20 mg = 1 tab(s), PO, BID, loperamide: 2 mg = 1 tab(s), PO, QID, PRN: for loose stool, metoprolol: 25 mg = 1 tab(s), PO, BID, pantoprazole: 40 mg = 1 tab(s), PO, Daily, ticagrelor: 90 mg = 1 tab(s), PO, BID, warfarin: 5 mg = 1 tab(s), PO, Daily, Action: none required Held home medication(s): none Renal Function: Estimated CrCl: 58 ml/min Automatic pharmacy renal dose adjusted medication(s): Enoxaparin but is currently dosed appropriately Action: _ _ Anticoagulation or Prophylaxis: Lovenox- (enoxaparin)until INR Therapeutic INR:1.21 Platelets: Hematocrit: Hemoglobin: Action: _ Antibiotics: None Currently _ Indication:_ Culture Results: Action: _ Pain Management: Scheduled non-narcotic: Scheduled narcotic: prn narcotic pain medication(s): __ __ prn non-narcotic pain medication(s): Acetaminophen_ Action: _ Bowel regimen medication(s): None currently Drug-Drug Interaction: Action: Other: _ [Electronically Signed on: 03/12/2021 13:39 EDT] Jaison Ireland RPh [Verified on: 03/12/2021 13:39 EDT] Jaison Ireland RPh [facility] Pharmacy Note This is a 70 Years M LEONORA with a history of A. Fib. and Covid 19 positive presenting with anticoagulation monitoring and adjustment. The patient is currently taking warfarin. 5mg daily at home. No dose of warfarin was given on 03/11 the day of admission. INR today via Lab Draw was 1.21 and is sub-therapeutic desired INR is 2.0-3.0. Reviewed medication list and drug allergies with and no significant new drug or food interactions were noted. Enoxaparin will be given until the INR is therapeutic > 2.0 We will give 7.5mg today and schedule for follow up INR in 1 day [Electronically Signed on: 03/12/2021 11:49 EDT] Jaison Ireland RPh [Verified on: 03/12/2021 11:49 EDT] Jaison Ireland RPh [facility] Progress Note - Nurseon 02-23 Progress Note - Nurse Lying in bed laughing at tv when nurse enters room. Given clear liquid tray. Takes medications without difficulty.. Slow to get up out of bed but able to move independently with much encouragement. [Electronically Signed on: 03/12/2021 16:17 EDT] Nya Xiong RN [Verified on: 03/12/2021 16:17 EDT] Nya Xiong RN [facility] Progress Note - Nurse Patient with flat affect during assessment. Up to BR with SBA for diarrhea stool. Patient states I am so sick . Ambulates back to bed. Fine tremors of hands noted. Relates has had this and his father had Parkinson's. No eye contact. Nurse checks if patient has any other needs before leaving room. 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 Encouraged to pull blankets up that are located just below his knees on his bed. [Electronically Signed on: 03/12/2021 13:15 EDT] Nya Xiong RN [Verified on: 03/12/2021 13:15 EDT] Nya Xiong RN [facility] Provider Letteron 11-30-2020 Provider Letter November 30, 2020 November 30, 2020 LINO PEÑA JR [address] [place] [address] LINO PEÑA JR 1950 Dear Mr. Peña, You missed your scheduled appointment with Dr. Mendoza on 11/30/2020 and the purpose of this letter is to inform you of our *No Show Policy*. Our appointment slots fill rapidly and when we have a no show appointment that time is lost. We could have used that time slot to care for a patient who needed to see one of our providers. Therefore, we ask that you call 24 hours in advance to cancel your appointment. After your second no show within a twelve (12) month period, you will be assessed a $30 charge. This policy is in place so that we can meet the needs of all of our patients and we do appreciate your understanding. Sincerely, [facility] [address] [place] [address] Normal [facility] Basic Metabolic Panelon 07-27 Calcium [Mass/Vol] 9.1 mg/dL Normal 8.2-10.2 [facility] Comment on above: Performed By: #### C KMB, CK, TROP #### [facility] [address] [place] [address] [place] Chloride [Moles/Vol] 99 mmol/L Normal 95-114 [facility] Comment on above: Performed By: #### C KMB, CK, TROP #### [facility] [address] CO2 [Moles/Vol] 23.7 mmol/L Normal 22.0-30.0 [facility] Comment on above: Performed By: #### C KMB, CK, TROP #### [facility] [address] [place] [address] [place] Creatinine [Mass/Vol] 1.30 mg/dL High 0.64-1.27 [facility] Comment on above: Performed By: #### C KMB, CK, TROP #### [facility] [address] [place] [id number] [place] Creatinine Clr Calc Pharmacy 58.88 [facility] Comment on above: Result Comment: PERF ORMED BY: [place] [address] PATHOLOGIST PROFESSOR OF PSYCHOLOGY LE SAUNDERS M.D. Performed By: #### C KMB, CK, TROP #### [facility] [address] [place] [address] [place] Estimated GFR ( Francy > 60 Normal [facility] Comment on above: Result Comment: GFR estimated reference range: According to KDOQI guidelines, <60 ml/min/1.73m2 is sufficient to diagnose a patient with chronic kidney disease. Performed By: #### C KMB, CK, TROP #### [facility] [address] [place] [address] [place] Estimated GFR (Non- Am 55 Normal [facility] Comment on above: Performed By: #### C KMB, CK, TROP #### [facility] [address] Glucose [Mass/Vol] 104 mg/dL High 70-100 [facility] Comment on above: Result Comment: [place] om Glucose Reference Range is dependent on time and content of last meal. Glucose of more than 200 mg/dL in a nonstressed, ambulatory subject supports the diagnosis of Diabetes Mellitus. ADA recommended reference range Performed By: #### C KMB, CK, TROP #### [facility] [address] Potassium [Moles/Vol] 3.7 mmol/L Normal 3.5-5.1 [facility] Comment on above: Performed By: #### C KMB, CK, TROP #### [facility] [address] Sodium [Moles/Vol] 135 mmol/L Low 136-146 [facility] Comment on above: Performed By: #### C KMB, CK, TROP #### [facility] [address] Urea nitrogen [Mass/Vol] 27 mg/dL High 9-23 [facility] Comment on above: Performed By: #### C KMB, CK, TROP #### [facility] [address] Basic Metabolic Panelon 02-2 -2020 Calcium [Mass/Vol] 9.0 mg/dL Normal 8.2-10.2 [facility] Comment on above: Performed By: #### C BC, PTT, PT #### [facility] [address] Chloride [Moles/Vol] 103 mmol/L Normal 95-114 [facility] Comment on above: Performed By: #### C BC, PTT, PT #### [facility] [address] CO2 [Moles/Vol] 21.3 mmol/L Low 22.0-30.0 [facility] Comment on above: Performed By: #### C BC, PTT, PT #### [facility] [address] Creatinine [Mass/Vol] 1.16 mg/dL Normal 0.64-1.27 [facility] Comment on above: Performed By: #### C BC, PTT, PT #### [facility] [address] Creatinine Clr Calc Pharmacy 66.73 [facility] Comment on above: Result Comment: PERF ORMED BY: [place] [address] PATHOLOGIST PROFESSOR OF PSYCHOLOGY LE SAUNDERS M.D. Performed By: #### C BC, PTT, PT #### [address] Estimated GFR ( Francy > 60 [facility] Comment on above: Result Comment: GFR estimated reference range: According to KDOQI guidelines, <60 ml/min/1.73m2 is sufficient to diagnose a patient with chronic kidney disease. Performed By: #### C BC, PTT, PT #### [facility] [address] Estimated GFR (Non- Am > 60 [facility] Comment on above: Performed By: #### C BC, PTT, PT #### [facility] [address] Glucose [Mass/Vol] 103 mg/dL High 70-100 [facility] Comment on above: Result Comment: [place] Glucose Reference Range is dependent on time and content of last meal. Glucose of more than 200 mg/dL in a nonstressed, ambulatory subject supports the diagnosis of Diabetes Mellitus. ADA recommended reference range Performed By: #### C BC, PTT, PT #### [facility] [address] [place] [id number] [facility] Potassium [Moles/Vol] 3.9 mmol/L Normal 3.5-5.1 [facility] Comment on above: Performed By: #### C BC, PTT, PT #### [facility] [address] Sodium [Moles/Vol] 136 mmol/L Normal 136-146 [facility] Comment on above: Performed By: #### C BC, PTT, PT #### [facility] [address] Urea nitrogen [Mass/Vol] 21 mg/dL Normal 9-23 [facility] Comment on above: Performed By: #### C BC, PTT, PT #### [facility] [address] C. Difficile DNA Amplificati onon 08-20-2020 C. Difficile DNA Amplification > or = to 3 loose/watery stools in the last 24 HRS? Y Is patient on promotility agents or tube feeding? N CDT DNA Results Negative for Toxigenic C. Difficile by DNA Amplification Reference range = Negative PERFORMED BY: [place] [address] PATHOLOGIST PROFESSOR OF PSYCHOLOGY LE SAUNDERS M.D. Normal [facility] Comment on above: Performed By: #### C BC, PTT, PT #### [facility] [address] [place] [id number] [facility] Complete Blood Count Auto Di ffon 08-20-2020 Basophils (Bld) [#/Vol] 0.1 10*3/uL Normal 0.0-0.2 [facility] Comment on above: Result Comment: PERF ORMED BY: [facility] [address] [place] [address] PATHOLOGIST PROFESSOR OF PSYCHOLOGY LE SAUNDERS M.D. Performed By: #### C BC, PTT, PT #### [facility] [address] Basophils/100 WBC (Bld) 1.1 % Normal . [facility] Comment on above: Performed By: #### C BC, PTT, PT #### [facility] [address] [place] [address] [place] Eosinophils (Bld) [#/Vol] 0.3 10*3/uL Normal 0.0-0.45 [facility] Comment on above: Performed By: #### C BC, PTT, PT #### [facility] [address] Eosinophils/100 WBC (Bld) 3.5 % Normal . [facility] Comment on above: Performed By: #### C BC, PTT, PT #### [facility] [address] Erythrocyte distribution width (RBC) [Ratio] 14.2 % Normal 12.0-14.8 [facility] Comment on above: Performed By: #### C BC, PTT, PT #### [address] Hematocrit (Bld) [Volume fraction] 40.1 % Normal 38.8-50.0 [facility] Comment on above: Performed By: #### C BC, PTT, PT #### [facility] [address] [place] [address] [place] Hemoglobin (Bld) [Mass/Vol] 13.6 g/dL Normal 13.0-17.0 [facility] Comment on above: Performed By: #### C BC, PTT, PT #### [facility] [address] [place] [address] [place] Lymphocytes (Bld) [#/Vol] 1.0 10*3/uL Normal 1.00-4.8 [facility] Comment on above: Performed By: #### C BC, PTT, PT #### [facility] [address] [place] [address] [place] Lymphocytes/100 WBC (Bld) 11.1 % Normal . [facility] Comment on above: Performed By: #### C BC, PTT, PT #### [address] MCH (RBC) [Entitic mass] 26.4 pg Low 27.5-35.2 [facility] Comment on above: Performed By: #### C BC, PTT, PT #### [address] MCV (RBC) [Entitic vol] 77.8 fL Low 83.5-101 [facility] Comment on above: Performed By: #### C BC, PTT, PT #### [address] Mean Corpuscular HGB Conc 34.0 g/dL Normal 32.5-35.6 [facility] Comment on above: Performed By: #### C BC, PTT, PT #### [address] Monocytes (Bld) [#/Vol] 0.8 10*3/uL Normal 0.0-0.8 [facility] Comment on above: Performed By: #### C BC, PTT, PT #### [address] Monocytes/100 WBC (Bld) 8.6 % Normal . [facility] Comment on above: Performed By: #### C BC, PTT, PT #### [address] Neutrophils (Bld) [#/Vol] 6.8 10*3/uL Normal 1.8-7.7 [facility] Comment on above: Performed By: #### C BC, PTT, PT #### [address] Neutrophils/100 WBC (Bld) 75.7 % Normal . [facility] Comment on above: Performed By: #### C BC, PTT, PT #### [address] Nucleated RBC/100 WBC (Bld) [Ratio] 0.1 % Normal 0-0.5 [facility] Comment on above: Performed By: #### C BC, PTT, PT #### [facility] [address] Platelet mean volume (Bld) [Entitic vol] 7.4 fL Normal 6.6-10.1 [facility] Comment on above: Performed By: #### C BC, PTT, PT #### [facility] [address] Platelets (Bld) [#/Vol] 289 10*3/uL Normal 150-450 [facility] Comment on above: Performed By: #### C BC, PTT, PT #### [address] RBC (Bld) [#/Vol] 5.16 10*6/uL Normal 3.90-5.60 [facility] Comment on above: Performed By: #### C BC, PTT, PT #### [address] WBC (Bld) [#/Vol] 9.0 10*3/uL Normal 4.5-11.0 [facility] Comment on above: Performed By: #### C BC, PTT, PT #### [address] ECH echo transthoracicon ECH echo transthoracic [facility] [place] [address] Echocardiogram Signed Patient: Lino Peña Jr MR#: [id number] : 1950 Acct:[id number] Age/Sex: 70 / M ADM Date: 08/19/20 Loc: Room: 9D6844-5 Type: ADM IN Attending Dr: Padmini Germain MD Ordering Provider: NAKUL Medina Date of Service: 08/19/20 ECH/ECH echo transthoracic: shortness of breath Copies to: NAKUL Medina,DO Height: 65 in Weight: 229 lb Performed By: RAYMUNDO Polk BSA: 2.1 m2 BP: 122/71 mmHg HR: 76 Reason For Study: shortness of breath History: CAD. HLD. TX. PCI. Family history of CAD. Interpretation Summary Mild concentric left ventricular hypertrophy. Ejection Fraction = 45-50%. There is left ventricular diastolic dysfunction. There is mild global hypokinesis of the left ventricle. The left atrium appears mildly dilated. Mild valvular aortic stenosis. There is trace mitral regurgitation. There is trace tricuspid regurgitation. There is no comparison study available. Procedure/Quality: A two-dimensional transthoracic echocardiogram with color flow and Doppler was performed. The study was technically fair in quality. Left Ventricle: Mild concentric left ventricular hypertrophy. Ejection Fraction = 45-50%. There is left ventricular diastolic dysfunction. There is mild global hypokinesis of the left ventricle. No left ventricular thrombus or mass is seen. Left Atrium: The left atrium appears mildly dilated. Right Atrium: The right atrium appears normal in size. Right Ventricle: The right ventricle is normal in size and function. Aortic Valve: The aortic valve is mildly calcified. The aortic valve maximum pressure gradient is 13.6 mmHg . The aortic valve mean gradient is 6.8 mmHg . The aortic valve peak velocity is 184.2 cm/sec . The aortic valve area is calculated to be 1.8 cm 2 . Mild valvular aortic stenosis. No aortic regurgitation is present. Mitral Valve: The mitral valve is normal. There is no mitral valve stenosis. There is trace mitral regurgitation. Tricuspid Valve: The tricuspid valve is normal in structure and function. There is trace tricuspid regurgitation. Pulmonic Valve: The pulmonic valve is not well seen, but is grossly normal. Arteries: The aortic root is normal size. Pericardium/Pleura: No pericardial effusion seen. IVC/Hepatic Viens: The IVC is normal in size with an inspiratory collapse of greater then 50%, suggesting normal right atrial pressure. Measurements with Normals IVSd: 1.4 cm (0.7-1.1 cm)LVIDd: 3.6 cm (3.7-5.4 cm) LVPWd: 1.2 cm (0.7-1.1 cm)LVIDs: 2.8 cm (2.3-3.6 cm) LA dimension: 4.4 cm(2.3-4.0 cm)Ao root diam: 3.6 cm(2.0-3.2 cm) Doppler with Normals LV V1 max: 111.4 cm/sec (0.7-1.7m/s)MV E max rogelio: 60.0 cm/sec(0.8-1.3m/s) MV A max rogelio: 83.6 cm/sec(0.0-0.0m/s) MV E/A: 0.72 (<1.5) MMode/2D Measurements Calculations RVDd: 3.9 cm FS: 23.7 % Ao root area: LVOT diam: 2.0 cm EDV(Teich): 10.0 cm2 LVOT area: 3.0 cm2 55.7 ml ESV(Teich): 28.9 ml EF(Teich): 48.2 % __ LVLd ap4: 7.6 cm SV(MOD-sp4): LAV(MOD-sp4): LA A2 area: 23.7 cm2 EDV(MOD-sp4): 48.2 ml 63.3 ml 95.7 ml LAV(MOD-sp2): LA A4 area: 22.1 cm2 LVLs ap4: 6.4 cm 75.8 ml LA length (vol): ESV(MOD-sp4): 6.3 cm 47.5 ml LA vol: 70.3 ml EF(MOD-sp4): LA vol index: 50.4 % 33.6 ml/m2 Doppler Measurements Calculations MV dec time: E/E' lat: 9.2 MV dec slope: Ao V2 max: 0.26 sec E/E' med: 13.8 184.2 cm/sec 230.2 cm/sec2 Ao max P.6 mmHg Ao mean P.8 mmHg Ao V2 mean: 122.4 cm/sec Ao V2 VTI: 30.6 cm BLAIRE(I,D): 2.0 cm2 BLAIRE(V,D): 1.8 cm2 __ LV V1 max PG: RAP systole: 5.0 mmHg 5.0 mmHg LV V1 mean P.4 mmHg LV V1 mean: 71.6 cm/sec LV V1 VTI: 20.4 cm Transcribed By: GAYE 08/20/201201 Dictated By: Ronald Stringer DO 08/20/20924 Signed By: 08/20/20 120 [facility] Troponin I(TnI)on 08-20-2020 Troponin I.cardiac [Mass/Vol] 4.57 ng/mL Off scale high 0-0.02 [facility] Comment on above: Result Comment: STEV[place] Cut off value > or equal to 0.03 ng/mL in conjunction with clinical conditions of myocardial infarction. (www.escardio.org/guidelines) PERFORMED BY: [place] [address] PATHOLOGIST PROFESSOR OF PSYCHOLOGY LE SAUNDERS M.D. Performed By: #### C BC, PTT, PT #### [address] B-Type Natriuretic Peptideon 08-19-2020 Natriuretic peptide B (Bld) [Mass/Vol] 322.0 pg/mL High 5-100 [facility] Comment on above: Result Comment: PERF ORMED BY: [place] [address] PATHOLOGIST PROFESSOR OF PSYCHOLOGY LE SAUNDERS M.D. Performed By: #### C BC, PTT, PT #### [facility] [address] [place] [address] Basic Metabolic Panelon 07-27 Calcium [Mass/Vol] 8.8 mg/dL Normal 8.2-10.2 [facility] Comment on above: Performed By: #### C BC, PTT, PT #### [facility] [address] [place] [address] [place] Chloride [Moles/Vol] 103 mmol/L Normal 95-114 [facility] Comment on above: Performed By: #### C BC, PTT, PT #### [facility] [address] CO2 [Moles/Vol] 18.6 mmol/L Low 22.0-30.0 [facility] Comment on above: Performed By: #### C BC, PTT, PT #### [facility] [address] Creatinine [Mass/Vol] 1.00 mg/dL Normal 0.64-1.27 [facility] Comment on above: Performed By: #### C BC, PTT, PT #### [facility] [address] [place] [address] [place] Creatinine Clr Calc Pharmacy 79.93 [facility] Comment on above: Result Comment: PERF ORMED BY: [place] [address] PATHOLOGIST PROFESSOR OF PSYCHOLOGY LE SAUNDERS M.D. Performed By: #### C BC, PTT, PT #### [address] Estimated GFR ( Francy > 60 [facility] Comment on above: Result Comment: GFR estimated reference range: According to KDOQI guidelines, <60 ml/min/1.73m2 is sufficient to diagnose a patient with chronic kidney disease. Performed By: #### C BC, PTT, PT #### [address] Estimated GFR (Non- Am > 60 [facility] Comment on above: Performed By: #### C BC, PTT, PT #### [facility] [address] Glucose [Mass/Vol] 91 mg/dL Normal 70-100 [facility] Comment on above: Result Comment: [place] om Glucose Reference Range is dependent on time and content of last meal. Glucose of more than 200 mg/dL in a nonstressed, ambulatory subject supports the diagnosis of Diabetes Mellitus. ADA recommended reference range Performed By: #### C BC, PTT, PT #### [facility] [address] [place] [address] [place] Potassium [Moles/Vol] 4.2 mmol/L Normal 3.5-5.1 [facility] Comment on above: Performed By: #### C BC, PTT, PT #### [facility] [address] Sodium [Moles/Vol] 133 mmol/L Low 136-146 [facility] Comment on above: Performed By: #### C BC, PTT, PT #### [facility] [address] Urea nitrogen [Mass/Vol] 21 mg/dL Normal 9-23 [facility] Comment on above: Performed By: #### C BC, PTT, PT #### [facility] [address] COVID-19 Antigenon 1 COVID-19 Antigen Healthcare Worker?: N Tyra Reference Tyra Reference Negative SARS-CoV+SARS-CoV-2 (COVID-19) Ag [Presence] in Respiratory specimen by Rapid immunoassay Negative for SARS Antigen by TAJ COVID19 Blank Space -------- Tyra Disclaimer Negative results, from patients with symptom Tyra Disclaimer onset beyond five days, should be treated as Tyra Disclaimer presumptive and confirmation with a molecular Tyra Disclaimer assay, if necessary, for patient management, Tyra Disclaimer may be performed. Negative results do not rule Tyra Disclaimer out COVID-19 and should not be used as the sole Tyra Disclaimer basis for treatment or patient management Tyra Disclaimer decisions, including infection control decisions. Tyra Disclaimer Negative results should be considered in the Tyra Disclaimer context of a patient's recent exposures, history Tyra Disclaimer and the presence of clinical signs and symptoms Tyra Disclaimer consistent with COVID-19. COVID19 Blank Space -------- Tyra Disclaimer The Tyra SARS Antigen TAJ does not differentiate Tyra Disclaimer between SARS-CoV and SARS-CoV-2. COVID19 Blank Space -------- Tyra Disclaimer This test was developed and its performance Tyra Disclaimer characteristic determined by [employer] and Tyra Disclaimer validated at [facility]. This Tyra Disclaimer test has not been FDA cleared or approved. This Tyra Disclaimer test has been authorized by FDA under an Emergency Use Tyra Disclaimer Authorization (EUA). This test has been validated Tyra Disclaimer in accordance with the FDA's Guidance Document (Policy Tyra Disclaimer for Diagnostics Testing in Laboratories Certified to Tyra Disclaimer Perform High Complexity Testing under CLIA prior to Tyra Disclaimer Emergency Use Authorization for Coronavirus Tyra Disclaimer iseas during the Public Health Emergency) Tyra Disclaimer issued on September 25, 2019. This test is only authorized Tyra Disclaimer for the duration of time the declaration that Tyra Disclaimer circumstances exist justifying the authorization of Tyra Disclaimer the emergency use of in vitro diagnostic tests for Tyra Disclaimer detection of SARS-CoV-2 virus and/or diagnosis of Tyra Disclaimer COVID-19 infection under section 564(b)(1) of the Tyra Disclaimer Act, 21 U.S.C. 360bbb-3(b)(1), unless the Tyra Disclaimer authorization is terminated or revoked sooner. PERFORMED BY: [place] [address] PATHOLOGIST PROFESSOR OF PSYCHOLOGY LE SAUNDERS M.D. [facility] Comment on above: Performed By: #### C BC, PTT, PT #### [address] COVID-19 FRMCon 08-19-2020 SARS-CoV-2 (COVID-19) RNA ALEXI+probe Ql (Unsp spec) Negative Normal Negative [facility] Comment on above: Order Comment: Healt hcare Worker?: N Result Comment: Test ing for SARS-CoV-2 by RT-PCR This test was developed and its performance characteristics determined by [employer] and validated at the [facility]. This test has not been FDA cleared or approved. This test has been authorized by FDA under an Emergency Use Authorization (EUA). This test has been validated in accordance with the FDA's Guidance Document (Policy for Diagnostics Testing in Laboratories Certified to Perform High Complexity Testing under CLIA prior to Emergency Use Authorization for Coronavirus Disease-2019 during the Public Health Emergency) issued on September 25, 2019. This test is only authorized for the duration of time the declaration that circumstances exist justifying the authorization of the emergency use of in vitro diagnostic tests for detection of SARS-CoV-2 virus and/or diagnosis of COVID-19 infection under section 564(b)(1) of the Act, 21 U.S.C. 360bbb-3(b)(1), unless the authorization is terminated or revoked sooner. PERFORMED BY: [place] [address] PATHOLOGIST PROFESSOR OF PSYCHOLOGY LE SAUNDERS M.D. Performed By: #### C BC, PTT, PT #### [facility] [address] [place], [place] [id number] [facility] Complete Blood Count Auto Di on 08-19-2020 Basophils (Bld) [#/Vol] 0.1 10*3/uL Normal 0.0-0.2 [facility] Comment on above: Result Comment: PERF ORMED BY: [place] [address] PATHOLOGIST PROFESSOR OF PSYCHOLOGY LE SAUNDERS M.D. Performed By: #### C BC, PTT, PT #### [facility] [address] [place] [address] Basophils/100 WBC (Bld) 1.0 % Normal . [facility] Comment on above: Performed By: #### C BC, PTT, PT #### [facility] [address] Eosinophils (Bld) [#/Vol] 0.3 10*3/uL Normal 0.0-0.45 [facility] Comment on above: Performed By: #### C BC, PTT, PT #### [facility] [address] Eosinophils/100 WBC (Bld) 3.0 % Normal . [facility] Comment on above: Performed By: #### C BC, PTT, PT #### [facility] [address] [place] [address] Erythrocyte distribution width (RBC) [Ratio] 14.4 % Normal 12.0-14.8 [facility] Comment on above: Performed By: #### C BC, PTT, PT #### [address] Hematocrit (Bld) [Volume fraction] 38.2 % Low 38.8-50.0 [facility] Comment on above: Performed By: #### C BC, PTT, PT #### [address] Hemoglobin (Bld) [Mass/Vol] 12.7 g/dL Low 13.0-17.0 [facility] Comment on above: Performed By: #### C BC, PTT, PT #### [place] [address] [place] Lymphocytes (Bld) [#/Vol] 1.2 10*3/uL Normal 1.00-4.8 [facility] Comment on above: Performed By: #### C BC, PTT, PT #### [place] [address] [place] Lymphocytes/100 WBC (Bld) 13.2 % Normal . [facility] Comment on above: Performed By: #### C BC, PTT, PT #### [address] MCH (RBC) [Entitic mass] 25.9 pg Low 27.5-35.2 [facility] Comment on above: Performed By: #### C BC, PTT, PT #### [facility] [address] MCV (RBC) [Entitic vol] 78.1 fL Low 83.5-101 [facility] Comment on above: Performed By: #### C BC, PTT, PT #### [facility] [address] Mean Corpuscular HGB Conc 33.2 g/dL Normal 32.5-35.6 [facility] Comment on above: Performed By: #### C BC, PTT, PT #### [facility] [address] [place] [address] [place] Monocytes (Bld) [#/Vol] 0.8 10*3/uL Normal 0.0-0.8 [facility] Comment on above: Performed By: #### C BC, PTT, PT #### [facility] [address] Monocytes/100 WBC (Bld) 9.0 % Normal . [facility] Comment on above: Performed By: #### C BC, PTT, PT #### [facility] [address] [place] [address] [place] Neutrophils (Bld) [#/Vol] 6.7 10*3/uL Normal 1.8-7.7 [facility] Comment on above: Performed By: #### C BC, PTT, PT #### [facility] [address] [place] [address] [place] Neutrophils/100 WBC (Bld) 73.8 % Normal . [facility] Comment on above: Performed By: #### C BC, PTT, PT #### [facility] [address] [place] [address] [place] Nucleated RBC/100 WBC (Bld) [Ratio] 0.1 % Normal 0-0.5 [facility] Comment on above: Performed By: #### C BC, PTT, PT #### [facility] [address] [place] [address] [place] Platelet mean volume (Bld) [Entitic vol] 7.5 fL Normal 6.6-10.1 [facility] Comment on above: Performed By: #### C BC, PTT, PT #### [facility] [address] Platelets (Bld) [#/Vol] 298 10*3/uL Normal 150-450 [facility] Comment on above: Performed By: #### C BC, PTT, PT #### [facility] [address] RBC (Bld) [#/Vol] 4.90 10*6/uL Normal 3.90-5.60 [facility] Comment on above: Performed By: #### C BC, PTT, PT #### [facility] [address] WBC (Bld) [#/Vol] 9.1 10*3/uL Normal 4.5-11.0 [facility] Comment on above: Performed By: #### C BC, PTT, PT #### [facility] [address] ECG 12 lead ECGon 08-19-2020 ECG 12 lead ECG [facility] [place] [address] [place] [address] Electrocardiograph Report Signed Patient: Lino Peña Jr MR#: [id number] : 1950 Acct:[id number] Age/Sex: 70 / M ADM Date: 08/19/20 Loc: Room: [address] [place] [address] Type: ADM IN Attending Dr: Padmini Germain MD Ordering Provider: Yannick Kan DO Date of Service: 08/19/20 ECG/ECG 12 lead ECG: CHEST PAIN Copies to: Test Reason : Blood Pressure : 133/077 mmHG Vent. Rate : 082 BPM Atrial Rate : 082 BPM P-R Int : 196 ms QRS Dur : 082 ms QT Int : 374 ms P-R-T Axes : 067 -71 031 degrees QTc Int : 436 ms Normal sinus rhythm Left axis deviation Inferior infarct (cited on or before 17-AUG-2020) Abnormal ECG When compared with ECG of 17-AUG-2020 07:40, premature supraventricular complexes are no longer present T wave inversion no longer evident in Inferior leads Confirmed by MEJIA GUNN DO ([id number]) on 08/20/2020 3:33:45 PM Referred By: Electronically Signed By:MEJIA GUNN DO Transcribed By: MUS Dictated By: Mejia Gunn DO 08/19/20 1353 Signed By: 08/20/20 1533 Normal [facility] Magnesiumon 08-19-2020 Magnesium [Mass/Vol] 2.1 mg/dL Normal 1.6-2.6 [facility] Comment on above: Result Comment: PERF ORMED BY: [place] [address] PATHOLOGIST PROFESSOR OF PSYCHOLOGY LE SAUNDERS M.D. Performed By: #### C BC, PTT, PT #### [facility] [address] [place] [address] [facility] Partial Thromboplastin Timeo n 08-19-2020 aPTT Coag (Bld) [Time] 32.9 s Normal 25.1-36.5 [facility] Comment on above: Result Comment: PERF ORMED BY: [address] [address] PATHOLOGIST PROFESSOR OF PSYCHOLOGY LE SAUNDERS M.D. Performed By: #### C BC, PTT, PT #### [facility] [address] [place] [address] [place] Prothrombin Time INRon 08-19 INR Coag (PPP) [Relative time] 1.3 {INR} Normal [facility] Comment on above: Result Comment: INR Therapeutic Range A) Pre- and Peroperative OAT started two weeks before surgery. NOT HIP SURGERY: 1.5 - 2.5 HIP SURGERY: 2 - 3 B) Primary and secondary prevention of venous THROMBOSIS: 2 - 3 C) Active venous thrombosis, pulmonary embolism and prevention of recurrent venous thrombosis: 2 - 3 D) Prevention of arterial thromboembolism including patients with mechanical heart valves: 3 - 4.5 Performed By: #### C BC, PTT, PT #### [facility] [address] [place] [address] [place] PT Coag (PPP) [Time] 14.3 s High 9.0-12.9 [facility] Comment on above: Performed By: #### C BC, PTT, PT #### [facility] [address] [place] [address] [place] Tyra Ag Negativeon 08-19-19 Tyra Ag Negative Negative Normal Negative [facility] Comment on above: Result Comment: This is a duplicate test result based off of the Tyra SARS Antigen (TAJ) test performed within the Microbiology department. PERFORMED BY: [place] [address] PATHOLOGIST PROFESSOR OF PSYCHOLOGY LE SAUNDERS M.D. Performed By: #### C BC, PTT, PT #### [address] Troponin I(TnI)on 08-19-2020 Troponin I.cardiac [Mass/Vol] 6.51 ng/mL Off scale high 0-0.02 [facility] Comment on above: Result Comment: STEVE [place] Cut off value > or equal to 0.03 ng/mL in conjunction with clinical conditions of myocardial infarction. (www.escardio.org/guidelines) PERFORMED BY: [place] [address] PATHOLOGIST PROFESSOR OF PSYCHOLOGY LE SAUNDERS M.D. Performed By: #### C BC, PTT, PT #### [address] Troponin I.cardiac [Mass/Vol] 5.98 ng/mL Off scale high 0-0.02 [facility] Comment on above: Result Comment: [place]E [place] Cut off value > or equal to 0.03 ng/mL in conjunction with clinical conditions of myocardial infarction. (www.escardio.org/guidelines) PERFORMED BY: [place] [address] PATHOLOGIST PROFESSOR OF PSYCHOLOGY LE SAUNDERS M.D. Performed By: #### C BC, PTT, PT #### [place] [address] [place] Troponin I.cardiac [Mass/Vol] 5.88 ng/mL Off scale high 0-0.02 [facility] Comment on above: Result Comment: Crit ical value result called at 1435 on 08/19/20 STEVE [place] Cut off value > or equal to 0.03 ng/mL in conjunction with clinical conditions of myocardial infarction. (www.escardio.org/guidelines) PERFORMED BY: [place] [address] PATHOLOGIST PROFESSOR OF PSYCHOLOGY LE SAUNDERS M.D. Performed By: #### C BC, PTT, PT #### [facility] [address] [place] [address] XR chest 1V portableon 08-19 XR chest 1V portable [facility] [place] [address] [place] [address] XRay Report Signed Patient: Lino Peña Jr MR#: [id number] : 1950 Acct:[id number] Age/Sex: 70 / M ADM Date: 08/19/20 Loc: ER Room: Type: [facility] ER Attending Dr: Ordering Provider: Yannick Kan DO Date of Service: 08/19/20 XR/XR chest 1V portable: CHEST PAIN Copies to: Yannick Kan DO XR chest 1V portable 08/19/2020 1:49 PM SIGNS AND SYMPTOMS: Shortness of breath, nausea PROTOCOL: Frontal radiograph of the chest COMPARISON: 05/30/2019 FINDINGS: The trachea is midline. There is cardiomegaly. Atherosclerotic changes are noted in the thoracic aorta. There is interstitial prominence bilaterally. There is no focal consolidation. Degenerative changes are noted in the shoulders and thoracic spine. The bony thorax is intact. XR/XR chest 1V portable IMPRESSION: Interval development of cardiomegaly and interstitial prominence which may indicate volume overload. Impression dictated by: Harshil Martinez M.D.08/19/2020 2:21 PM Dictation Location: [place] [address] Transcribed By: [facility] 08/19/20 142 Dictated By: Harshil Martinez II, MD 08/19/20 1419 Signed By: 08/19/20 142 Normal [facility] Basic Metabolic Panelon 07-27 Calcium [Mass/Vol] 8.4 mg/dL Normal 8.2-10.2 [facility] Comment on above: Performed By: #### C BC, PTT, PT #### [address] Chloride [Moles/Vol] 105 mmol/L Normal 95-114 [facility] Comment on above: Performed By: #### C BC, PTT, PT #### [address] CO2 [Moles/Vol] 21.4 mmol/L Low 22.0-30.0 [facility] Comment on above: Performed By: #### C BC, PTT, PT #### [address] Creatinine [Mass/Vol] 1.00 mg/dL Normal 0.64-1.27 [facility] Comment on above: Performed By: #### C BC, PTT, PT #### [address] Creatinine Clr Calc Pharmacy 77.29 [facility] Comment on above: Result Comment: PERF ORMED BY: [place] [address] PATHOLOGIST PROFESSOR OF PSYCHOLOGY LE SAUNDERS M.D. Performed By: #### C BC, PTT, PT #### [address] Estimated GFR ( Francy > 60 [facility] Comment on above: Result Comment: GFR estimated reference range: According to KDOQI guidelines, <60 ml/min/1.73m2 is sufficient to diagnose a patient with chronic kidney disease. Performed By: #### C BC, PTT, PT #### [address] Estimated GFR (Non- Am > 60 [facility] Comment on above: Performed By: #### C BC, PTT, PT #### [address] Glucose [Mass/Vol] 105 mg/dL High 70-100 [facility] Comment on above: Result Comment: [place] Glucose Reference Range is dependent on time and content of last meal. Glucose of more than 200 mg/dL in a nonstressed, ambulatory subject supports the diagnosis of Diabetes Mellitus. ADA recommended reference range Performed By: #### C BC, PTT, PT #### [facility] [address] Potassium [Moles/Vol] 3.9 mmol/L Normal 3.5-5.1 [facility] Comment on above: Performed By: #### C BC, PTT, PT #### [facility] [address] Sodium [Moles/Vol] 135 mmol/L Low 136-146 [facility] Comment on above: Performed By: #### C BC, PTT, PT #### [facility] [address] [place] [address] [place] Urea nitrogen [Mass/Vol] 21 mg/dL Normal 03-17 [facility] Comment on above: Performed By: #### C BC, PTT, PT #### [facility] [address] Complete Blood Count Auto Di ffon 08-17-2020 Basophils (Bld) [#/Vol] 0.1 10*3/uL Normal 0.0-0.2 [facility] Comment on above: Result Comment: PERF ORMED BY: [place] [address] PATHOLOGIST PROFESSOR OF PSYCHOLOGY LE SAUNDERS M.D. Performed By: #### C BC, PTT, PT #### [facility] [address] [place] [address] [place] Basophils/100 WBC (Bld) 1.1 % Normal . [facility] Comment on above: Performed By: #### C BC, PTT, PT #### [facility] [address] [place] [address] [place] Eosinophils (Bld) [#/Vol] 0.2 10*3/uL Normal 0.0-0.45 [facility] Comment on above: Performed By: #### C BC, PTT, PT #### [facility] [address] [place] [address] [place] Eosinophils/100 WBC (Bld) 1.8 % Normal . [facility] Comment on above: Performed By: #### C BC, PTT, PT #### [facility] [address] Erythrocyte distribution width (RBC) [Ratio] 14.3 % Normal 12.0-14.8 [facility] Comment on above: Performed By: #### C BC, PTT, PT #### [facility] [address] Hematocrit (Bld) [Volume fraction] 34.2 % Low 38.8-50.0 [facility] Comment on above: Performed By: #### C BC, PTT, PT #### [facility] [address] Hemoglobin (Bld) [Mass/Vol] 11.5 g/dL Low 13.0-17.0 [facility] Comment on above: Performed By: #### C BC, PTT, PT #### [facility] [address] [place] [address] [place] Lymphocytes (Bld) [#/Vol] 1.7 10*3/uL Normal 1.00-4.8 [facility] Comment on above: Performed By: #### C BC, PTT, PT #### [place] [address] [place] Lymphocytes/100 WBC (Bld) 17.0 % Normal . [facility] Comment on above: Performed By: #### C BC, PTT, PT #### [facility] [address] MCH (RBC) [Entitic mass] 26.2 pg Low 27.5-35.2 [facility] Comment on above: Performed By: #### C BC, PTT, PT #### [facility] [address] MCV (RBC) [Entitic vol] 77.9 fL Low 83.5-101 [facility] Comment on above: Performed By: #### C BC, PTT, PT #### [facility] [address] Mean Corpuscular HGB Conc 33.7 g/dL Normal 32.5-35.6 [facility] Comment on above: Performed By: #### C BC, PTT, PT #### [facility] [address] [place] [address] [place] Monocytes (Bld) [#/Vol] 0.8 10*3/uL Normal 0.0-0.8 [facility] Comment on above: Performed By: #### C BC, PTT, PT #### [facility] [address] [place] [address] [place] Monocytes/100 WBC (Bld) 8.4 % Normal . [facility] Comment on above: Performed By: #### C BC, PTT, PT #### [facility] [address] [place] [address] [place] Neutrophils (Bld) [#/Vol] 7.3 10*3/uL Normal 1.8-7.7 [facility] Comment on above: Performed By: #### C BC, PTT, PT #### [facility] [address] [place] [address] [place] Neutrophils/100 WBC (Bld) 71.7 % Normal . [facility] Comment on above: Performed By: #### C BC, PTT, PT #### [facility] [address] [place] [address] [place] Nucleated RBC/100 WBC (Bld) [Ratio] 0.0 % Normal 0-0.5 [facility] Comment on above: Performed By: #### C BC, PTT, PT #### [facility] [address] [place] [address] [place] Platelet mean volume (Bld) [Entitic vol] 7.5 fL Normal 6.6-10.1 [facility] Comment on above: Performed By: #### C BC, PTT, PT #### [facility] [address] [place] [address] [place] Platelets (Bld) [#/Vol] 236 10*3/uL Normal 150-450 [facility] Comment on above: Performed By: #### C BC, PTT, PT #### [facility] [address] RBC (Bld) [#/Vol] 4.39 10*6/uL Normal 3.90-5.60 [facility] Comment on above: Performed By: #### C BC, PTT, PT #### [address] WBC (Bld) [#/Vol] 10.1 10*3/uL Normal 4.5-11.0 [facility] Comment on above: Performed By: #### C BC, PTT, PT #### [address] Comprehensive Metabolic Pane stu 08-17-2020 Albumin [Mass/Vol] 3.2 g/dL Normal 3.2-5.5 [facility] Comment on above: Performed By: #### C BC, PTT, PT #### [address] Albumin/Globulin [Mass ratio] 1.1 {ratio} Normal [facility] Comment on above: Performed By: #### C BC, PTT, PT #### [address] ALP [Catalytic activity/Vol] 58 U/L Normal 32-92 [facility] Comment on above: Performed By: #### C BC, PTT, PT #### [address] ALT [Catalytic activity/Vol] 30 U/L Normal 10-60 [facility] Comment on above: Performed By: #### C BC, PTT, PT #### [address] AST [Catalytic activity/Vol] 88 U/L High 10-42 [facility] Comment on above: Performed By: #### C BC, PTT, PT #### [address] Bilirubin [Mass/Vol] 1.3 mg/dL High 0.3-1.2 [facility] Comment on above: Result Comment: Samp les from patients who have taken Naproxen have shown spurious elevation in Total Bilirubin levels. A metabolite of Naproxen, O-desmethylnaproxen, has been shown to interfere with the Jendrassik-Grof method for measuring Total Bilirubin. Performed By: #### C BC, PTT, PT #### [facility] [address] CO2 [Moles/Vol] 21.0 mmol/L Low 22.0-30.0 [facility] Comment on above: Performed By: #### C BC, PTT, PT #### [facility] [address] Globulin (S) [Mass/Vol] 3.0 g/dL Normal [facility] Comment on above: Performed By: #### C BC, PTT, PT #### [facility] [address] Glucose [Mass/Vol] 106 mg/dL High 70-100 [facility] Comment on above: Result Comment: [facility] Glucose Reference Range is dependent on time and content of last meal. Glucose of more than 200 mg/dL in a nonstressed, ambulatory subject supports the diagnosis of Diabetes Mellitus. ADA recommended reference range Performed By: #### C BC, PTT, PT #### [facility] [address] Potassium [Moles/Vol] 4.0 mmol/L Normal 3.5-5.1 [facility] Comment on above: Performed By: #### C BC, PTT, PT #### [facility] [address] [place] [id number] [place] Protein [Mass/Vol] 6.2 g/dL Normal 6.1-7.9 [facility] Comment on above: Performed By: #### C BC, PTT, PT #### [facility] [address] [place] [id number] [facility] ECG 12 lead ECGon 08-17-2020 ECG 12 lead ECG [facility] Main [address] [address] Electrocardiograph Report Signed Patient: Lino Peña Jr MR#: [id number] : 1950 Acct:[id number] Age/Sex: 70 / M ADM Date: 08/15/20 Loc: Room: [address] [place] [address] Type: ADM IN Attending Dr: Padmini Germain MD Ordering Provider: Julito Drake DO Date of Service: 08/17/20 ECG/ECG 12 lead ECG: Post Angioplasty Procedure in AM Copies to: Test Reason : Blood Pressure : / mmHG Vent. Rate : 070 BPM Atrial Rate : 070 BPM P-R Int : 190 ms QRS Dur : 078 ms QT Int : 372 ms P-R-T Axes : 024 -37 -43 degrees QTc Int : 401 ms Sinus rhythm with premature supraventricular complexes Left axis deviation Inferior infarct (cited on or before 17-AUG-2020) Abnormal ECG When compared with ECG of 17-AUG-2020 05:35, (Unconfirmed) premature supraventricular complexes are now present Confirmed by MEJIA GUNN DO ([id number]) on 08/17/2020 12:21:52 PM Referred By: Electronically Signed By:MEJIA GUNN DO Transcribed By: MUS Dictated By: Mejia Gunn DO 08/17/20 0740 Signed By: 08/17/20 1221 [facility] ECG 12 lead ECG [place] [id number] Electrocardiograph Report Signed Patient: Lino Peña Jr MR#: [id number] : 1950 Acct:[id number] Age/Sex: 70 / M ADM Date: 08/15/20 Loc: Room: [address] [place] [address] Type: ADM IN Attending Dr: Padmini Germain MD Ordering Provider: Padmini Germain MD Date of Service: 08/17/20 ECG/ECG 12 lead ECG: Pt Evaluation Copies to: Test Reason : Blood Pressure : / mmHG Vent. Rate : 076 BPM Atrial Rate : 076 BPM P-R Int : 194 ms QRS Dur : 082 ms QT Int : 364 ms P-R-T Axes : 056 -46 -38 degrees QTc Int : 409 ms Normal sinus rhythm Left axis deviation Inferior infarct recent? Nonspecific T wave abnormality Lateral leads Abnormal ECG When compared with ECG of 16-AUG-2020 12:04, (Unconfirmed) Nonspecific T wave abnormality worse lateral leads Confirmed by MEJIA GUNN DO ([id number]) on 08/17/2020 12:36:08 PM Referred By: Electronically Signed By:MEJIA GUNN DO Transcribed By: MUS Dictated By: Mejia Gunn DO 08/17/20 0535 Signed By: 08/17/20 1236 [facility] Troponin I(TnI)on 08-17-2020 Troponin I.cardiac [Mass/Vol] 16.73 ng/mL Off scale high 0-0.02 [facility] Comment on above: Result Comment: [place] Cut off value > or equal to 0.03 ng/mL in conjunction with clinical conditions of myocardial infarction. (www.escardio.org/guidelines) PERFORMED BY: [place] [address] PATHOLOGIST PROFESSOR OF PSYCHOLOGY LE SAUNDERS M.D. Performed By: #### C BC, PTT, PT #### [facility] [address] [place] [address] A1C with Estimated Average G vic 08-16-2020 Glucose [Mass/Vol] 126 mg/dL Normal [facility] Comment on above: Order Comment: at 10 14 Draw PTT at 0600 along w other labs, but may need to come back at 0700 for cardiacs. RN will let us know. [email or web address] Result Comment: PERF ORMED BY: [place] [address] PATHOLOGIST PROFESSOR OF PSYCHOLOGY LE SAUNDERS M.D. Performed By: #### C BC, PTT, PT #### [facility] [address] [place], [place] [id number] [facility] HbA1c (Bld) [Mass fraction] 6.0 % High 4.3-5.6 [facility] Comment on above: Order Comment: at 10 14 Draw PTT at 0600 along w other labs, but may need to come back at 0700 for cardiacs. RN will let us know. jkw Result Comment: Incr eased risk for diabetes: 5.7 - 6.4 diabetes: >6.4 glycemic control for adults with diabetes: <7.0 Performed By: #### C BC, PTT, PT #### [address] Complete Blood Count Auto Di ffon 08-16-2020 Basophils (Bld) [#/Vol] 0.1 10*3/uL Normal 0.0-0.2 [facility] Comment on above: Order Comment: at 10 14 Draw PTT at 0600 along w other labs, but may need to come back at 0700 for cardiacs. RN will let us know. jkw Result Comment: PERF ORMED BY: [place] [address] PATHOLOGIST PROFESSOR OF PSYCHOLOGY LE SAUNDERS M.D. Performed By: #### L IPID, MG #### [place] [address] [place] Basophils/100 WBC (Bld) 0.8 % Normal . [facility] Comment on above: Order Comment: at 10 14 Draw PTT at 0600 along w other labs, but may need to come back at 0700 for cardiacs. RN will let us know. jkw Performed By: #### L IPID, MG #### [place] [address] [place] Eosinophils (Bld) [#/Vol] 0.1 10*3/uL Normal 0.0-0.45 [facility] Comment on above: Order Comment: at 10 14 Draw PTT at 0600 along w other labs, but may need to come back at 0700 for cardiacs. RN will let us know. jkw Performed By: #### L IPID, MG #### [place] [address] [place] Eosinophils/100 WBC (Bld) 1.2 % Normal . [facility] Comment on above: Order Comment: at 10 14 Draw PTT at 0600 along w other labs, but may need to come back at 0700 for cardiacs. RN will let us know. jkw Performed By: #### L IPID, MG #### [facility] [address] [id number] [facility] Erythrocyte distribution width (RBC) [Ratio] 14.2 % Normal 12.0-14.8 [facility] Comment on above: Order Comment: at 10 14 Draw PTT at 0600 along w other labs, but may need to come back at 0700 for cardiacs. RN will let us know. jkw Performed By: #### L IPID, MG #### [facility] [address] [id number] [facility] Hematocrit (Bld) [Volume fraction] 35.9 % Low 38.8-50.0 [facility] Comment on above: Order Comment: at 10 14 Draw PTT at 0600 along w other labs, but may need to come back at 0700 for cardiacs. RN will let us know. jkw Performed By: #### L IPID, MG #### [place] [id number] [place] Hemoglobin (Bld) [Mass/Vol] 12.0 g/dL Low 13.0-17.0 [facility] Comment on above: Order Comment: at 10 14 Draw PTT at 0600 along w other labs, but may need to come back at 0700 for cardiacs. RN will let us know. jkw Performed By: #### L IPID, MG #### [facility] [address] [phone] [place] Lymphocytes (Bld) [#/Vol] 2.0 10*3/uL Normal 1.00-4.8 [facility] Comment on above: Order Comment: at 10 14 Draw PTT at 0600 along w other labs, but may need to come back at 0700 for cardiacs. RN will let us know. jkw Performed By: #### L IPID, MG #### [facility] [address] [phone] [place] Lymphocytes/100 WBC (Bld) 21.5 % Normal . [facility] Comment on above: Order Comment: at 10 14 Draw PTT at 0600 along w other labs, but may need to come back at 0700 for cardiacs. RN will let us know. jkw Performed By: #### L IPID, MG #### [address] MCH (RBC) [Entitic mass] 26.4 pg Low 27.5-35.2 [facility] Comment on above: Order Comment: at 10 14 Draw PTT at 0600 along w other labs, but may need to come back at 0700 for cardiacs. RN will let us know. jkw Performed By: #### L IPID, MG #### [address] MCV (RBC) [Entitic vol] 78.6 fL Low 83.5-101 [facility] Comment on above: Order Comment: at 10 14 Draw PTT at 0600 along w other labs, but may need to come back at 0700 for cardiacs. RN will let us know. jkw Performed By: #### L IPID, MG #### [address] Mean Corpuscular HGB Conc 33.6 g/dL Normal 32.5-35.6 [facility] Comment on above: Order Comment: at 10 14 Draw PTT at 0600 along w other labs, but may need to come back at 0700 for cardiacs. RN will let us know. jkw Performed By: #### L IPID, MG #### [facility] [address] [place] [address] Monocytes (Bld) [#/Vol] 0.7 10*3/uL Normal 0.0-0.8 [facility] Comment on above: Order Comment: at 10 14 Draw PTT at 0600 along w other labs, but may need to come back at 0700 for cardiacs. RN will let us know. jkw Performed By: #### L IPID, MG #### [address] Monocytes/100 WBC (Bld) 7.9 % Normal . [facility] Comment on above: Order Comment: at 10 14 Draw PTT at 0600 along w other labs, but may need to come back at 0700 for cardiacs. RN will let us know. jkw Performed By: #### L IPID, MG #### [facility] [address] [id number] [place] Neutrophils (Bld) [#/Vol] 6.3 10*3/uL Normal 1.8-7.7 [facility] Comment on above: Order Comment: at 10 14 Draw PTT at 0600 along w other labs, but may need to come back at 0700 for cardiacs. RN will let us know. jkw Performed By: #### L IPID, MG #### [facility] [address] [phone] [place] Neutrophils/100 WBC (Bld) 68.6 % Normal . [facility] Comment on above: Order Comment: at 10 14 Draw PTT at 0600 along w other labs, but may need to come back at 0700 for cardiacs. RN will let us know. jkw Performed By: #### L IPID, MG #### [facility] [address] [phone] [place] Nucleated RBC/100 WBC (Bld) [Ratio] 0.3 % Normal 0-0.5 [facility] Comment on above: Order Comment: at 10 14 Draw PTT at 0600 along w other labs, but may need to come back at 0700 for cardiacs. RN will let us know. jkw Performed By: #### L IPID, MG #### [facility] [address] [phone] [place] Platelet mean volume (Bld) [Entitic vol] 7.5 fL Normal 6.6-10.1 [facility] Comment on above: Order Comment: at 10 14 Draw PTT at 0600 along w other labs, but may need to come back at 0700 for cardiacs. RN will let us know. jkw Performed By: #### L IPID, MG #### [facility] [address] [phone] [place] Platelets (Bld) [#/Vol] 229 10*3/uL Normal 150-450 [facility] Comment on above: Order Comment: at 10 14 Draw PTT at 0600 along w other labs, but may need to come back at 0700 for cardiacs. RN will let us know. jkw Performed By: #### L IPID, MG #### [facility] [address] [place] [address] [facility] RBC (Bld) [#/Vol] 4.56 10*6/uL Normal 3.90-5.60 [facility] Comment on above: Order Comment: at 10 14 Draw PTT at 0600 along w other labs, but may need to come back at 0700 for cardiacs. RN will let us know. jkw Performed By: #### L IPID, MG #### [facility] [address] [place] [address] [facility] WBC (Bld) [#/Vol] 9.1 10*3/uL Normal 4.5-11.0 [facility] Comment on above: Order Comment: at 10 14 Draw PTT at 0600 along w other labs, but may need to come back at 0700 for cardiacs. RN will let us know. jkw Performed By: #### L IPID, MG #### [place] [id number] [facility] Comprehensive Metabolic Pane stu 08-16-2020 Albumin [Mass/Vol] 3.3 g/dL Normal 3.2-5.5 [facility] Comment on above: Order Comment: at 10 14 Draw PTT at 0600 along w other labs, but may need to come back at 0700 for cardiacs. RN will let us know. jkw Performed By: #### L IPID, MG #### [facility] [address] [id number] [facility] Albumin/Globulin [Mass ratio] 1.2 {ratio} Normal [facility] Comment on above: Order Comment: at 10 14 Draw PTT at 0600 along w other labs, but may need to come back at 0700 for cardiacs. RN will let us know. jkw Performed By: #### L IPID, MG #### [facility] [address] [phone] [facility] ALP [Catalytic activity/Vol] 59 U/L Normal 32-92 [facility] Comment on above: Order Comment: at 10 14 Draw PTT at 0600 along w other labs, but may need to come back at 0700 for cardiacs. RN will let us know. jkw Performed By: #### L IPID, MG #### [facility] [address] [place] [address] [place] ALT [Catalytic activity/Vol] 37 U/L Normal 10-60 [facility] Comment on above: Order Comment: at 10 14 Draw PTT at 0600 along w other labs, but may need to come back at 0700 for cardiacs. RN will let us know. jkw Performed By: #### L IPID, MG #### [facility] [address] [phone] [place] AST [Catalytic activity/Vol] 147 U/L High 10-42 [facility] Comment on above: Order Comment: at 10 14 Draw PTT at 0600 along w other labs, but may need to come back at 0700 for cardiacs. RN will let us know. jkw Performed By: #### L IPID, MG #### [facility] [address] [place] [address] [place] Bilirubin [Mass/Vol] 1.0 mg/dL Normal 0.3-1.2 [facility] Comment on above: Order Comment: at 10 14 Draw PTT at 0600 along w other labs, but may need to come back at 0700 for cardiacs. RN will let us know. jkw Performed By: #### L IPID, MG #### [facility] [address] [phone] [place] Calcium [Mass/Vol] 8.6 mg/dL Normal 8.2-10.2 [facility] Comment on above: Order Comment: at 10 14 Draw PTT at 0600 along w other labs, but may need to come back at 0700 for cardiacs. RN will let us know. jkw Performed By: #### L IPID, MG #### [facility] [address] [place] [address] [place] Chloride [Moles/Vol] 104 mmol/L Normal 95-114 [facility] Comment on above: Order Comment: at 10 14 Draw PTT at 0600 along w other labs, but may need to come back at 0700 for cardiacs. RN will let us know. jkw Performed By: #### L IPID, MG #### [facility] [address] [place] [address] [place] CO2 [Moles/Vol] 21.8 mmol/L Low 22.0-30.0 [facility] Comment on above: Order Comment: at 10 14 Draw PTT at 0600 along w other labs, but may need to come back at 0700 for cardiacs. RN will let us know. jkw Performed By: #### L IPID, MG #### [facility] [address] [phone] [facility] Creatinine [Mass/Vol] 1.07 mg/dL Normal 0.64-1.27 [facility] Comment on above: Order Comment: at 10 14 Draw PTT at 0600 along w other labs, but may need to come back at 0700 for cardiacs. RN will let us know. jkw Performed By: #### L IPID, MG #### [facility] [address] [phone] [place] Creatinine Clr Calc Pharmacy 72.23 [facility] Comment on above: Order Comment: at 10 14 Draw PTT at 0600 along w other labs, but may need to come back at 0700 for cardiacs. RN will let us know. jkw Performed By: #### L IPID, MG #### [facility] [address] [phone] [place] Estimated GFR ( Francy > 60 [facility] Comment on above: Order Comment: at 10 14 Draw PTT at 0600 along w other labs, but may need to come back at 0700 for cardiacs. RN will let us know. jkw Result Comment: GFR estimated reference range: According to KDOQI guidelines, <60 ml/min/1.73m2 is sufficient to diagnose a patient with chronic kidney disease. Performed By: #### L IPID, MG #### [facility] [address] [phone] [place] Estimated GFR (Non- Am > 60 [facility] Comment on above: Order Comment: at 10 14 Draw PTT at 0600 along w other labs, but may need to come back at 0700 for cardiacs. RN will let us know. jkw Performed By: #### L IPID, MG #### [facility] [address] [phone] [place] Globulin (S) [Mass/Vol] 2.8 g/dL Normal [facility] Comment on above: Order Comment: at 10 14 Draw PTT at 0600 along w other labs, but may need to come back at 0700 for cardiacs. RN will let us know. jkw Performed By: #### L IPID, MG #### [facility] [address] [phone] [place] Glucose [Mass/Vol] 116 mg/dL High 70-100 [facility] Comment on above: Order Comment: at 10 14 Draw PTT at 0600 along w other labs, but may need to come back at 0700 for cardiacs. RN will let us know. jkw Result Comment: [place] Glucose Reference Range is dependent on time and content of last meal. Glucose of more than 200 mg/dL in a nonstressed, ambulatory subject supports the diagnosis of Diabetes Mellitus. ADA recommended reference range Performed By: #### L IPID, MG #### [facility] [address] [phone] [place] Potassium [Moles/Vol] 4.6 mmol/L Normal 3.5-5.1 [facility] Comment on above: Order Comment: at 10 14 Draw PTT at 0600 along w other labs, but may need to come back at 0700 for cardiacs. RN will let us know. jkw Performed By: #### L IPID, MG #### [facility] [address] [phone] [place] Protein [Mass/Vol] 6.1 g/dL Normal 6.1-7.9 [facility] Comment on above: Order Comment: at 10 14 Draw PTT at 0600 along w other labs, but may need to come back at 0700 for cardiacs. RN will let us know. jkw Performed By: #### L IPID, MG #### [facility] [address] [place] [address] [place] Sodium [Moles/Vol] 136 mmol/L Normal 136-146 [facility] Comment on above: Order Comment: at 10 14 Draw PTT at 0600 along w other labs, but may need to come back at 0700 for cardiacs. RN will let us know. jkw Performed By: #### L IPID, MG #### [facility] [address] [place] [address] [place] Urea nitrogen [Mass/Vol] 25 mg/dL High 923 [facility] Comment on above: Order Comment: at 10 14 Draw PTT at 0600 along w other labs, but may need to come back at 0700 for cardiacs. RN will let us know. jkw Performed By: #### L IPID, MG #### [place] [phone] [place] Creatine Kinaseon 08-16-2020 CK [Catalytic activity/Vol] 1111 U/L [facility] Comment on above: Performed By: #### C BC, PTT, PT #### [address] [place] [phone] [place] CK [Catalytic activity/Vol] 1623 U/L [facility] Comment on above: Order Comment: at 10 14 Draw PTT at 0600 along w other labs per RN. jkw Performed By: #### L IPID, MG #### [place] [phone] [place] CK [Catalytic activity/Vol] 1819 U/L [facility] Comment on above: Performed By: #### T ROP, CK, CKMB #### [place] [phone] [place] Creatinine Kinase MBon 08-16 CK.MB [Mass/Vol] 90.3 ng/mL High 0.6-6.3 [facility] Comment on above: Performed By: #### C BC, PTT, PT #### [place] [address] [place] CKMB Relative Index 8.1 High 0.00-2.50 [facility] Comment on above: Performed By: #### C BC, PTT, PT #### [facility] [address] [place] [address] CK.MB [Mass/Vol] 175.5 ng/mL High 0.6-6.3 [facility] Comment on above: Order Comment: at 10 14 Draw PTT at 0600 along w other labs per RN. jkw Performed By: #### L IPID, MG #### [facility] [address] [place] [address] CKMB Relative Index 10.8 High 0.00-2.50 [facility] Comment on above: Order Comment: at 10 14 Draw PTT at 0600 along w other labs per RN. jkw Performed By: #### L IPID, MG #### [facility] [address] [place] [address] [place] CK.MB [Mass/Vol] 227.4 ng/mL High 0.6-6.3 [facility] Comment on above: Performed By: #### L IPID, MG #### [facility] [address] [place] [address] [place] CKMB Relative Index 12.5 High 0.00-2.50 [facility] Comment on above: Performed By: #### L IPID, MG #### [address] ECG 12 lead ECGon 08-16-2020 ECG 12 lead ECG [facility] [place] [address] Electrocardiograph Report Signed Patient: Lino Peña Jr MR#: [id number] : 1950 Acct:[id number] Age/Sex: 70 / M ADM Date: 08/15/20 Loc: Room: [address] [place] [address] Type: ADM IN Attending Dr: Padmini Germain MD Ordering Provider: Julito Drake DO Date of Service: 08/16/20 ECG/ECG 12 lead ECG: Post Angioplasty Procedure Copies to: Test Reason : Blood Pressure : / mmHG Vent. Rate : 063 BPM Atrial Rate : 063 BPM P-R Int : 194 ms QRS Dur : 074 ms QT Int : 378 ms P-R-T Axes : 016 -36 053 degrees QTc Int : 386 ms Poor data quality, interpretation may be adversely affected Normal sinus rhythm Left axis deviation Nonspecific ST and T wave abnormality Abnormal ECG When compared with ECG of 15-AUG-2020 15:21, Nonspecific T wave abnormality has replaced inverted T waves in Lateral leads Confirmed by MEJIA GUNN DO ([id number]) on 08/17/2020 1:04:05 PM Referred By: [facility] Electronically Signed By:MEJIA GUNN DO Transcribed By: ANGELA Dictated By: Mejia Gunn DO 08/16/20 1204 Signed By: 08/17/20 1304 [facility] Magnesiumon 08-16-2020 Magnesium [Mass/Vol] 2.2 mg/dL Normal 1.6-2.6 [facility] Comment on above: Order Comment: at 10 14 Draw PTT at 0600 along w other labs, but may need to come back at 0700 for cardiacs. RN will let us know. jkw Result Comment: PERF ORMED BY: [place] [address] PATHOLOGIST PROFESSOR OF PSYCHOLOGY LE SAUNDERS M.D. Performed By: #### L IPID, MG #### [facility] [address] [place] [address] [place] Partial Thromboplastin Timeo n 08-16-2020 aPTT Coag (Bld) [Time] 69.0 s High 25.1-36.5 [facility] Comment on above: Order Comment: at 10 14 Draw PTT at 0600 along w other labs, but may need to come back at 0700 for cardiacs. RN will let us know. jkw Result Comment: PERF ORMED BY: [place] [address] PATHOLOGIST PROFESSOR OF PSYCHOLOGY LE SAUNDERS M.D. Performed By: #### L IPID, MG #### [facility] [address] [place] [address] [place] aPTT Coag (Bld) [Time] 39.1 s High 25.1-36.5 [facility] Comment on above: Result Comment: PERF ORMED BY: [place] [address] PATHOLOGIST PROFESSOR OF PSYCHOLOGY LE SAUNDERS M.D. Performed By: #### P TT #### [facility] [address] [place] [address] Prothrombin Time INRon 08-16 INR Coag (PPP) [Relative time] 1.2 {INR} Normal [facility] Comment on above: Order Comment: at 10 14 Draw PTT at 0600 along w other labs, but may need to come back at 0700 for cardiacs. RN will let us know. jkw Result Comment: INR Therapeutic Range A) Pre- and Peroperative OAT started two weeks before surgery. NOT HIP SURGERY: 1.5 - 2.5 HIP SURGERY: 2 - 3 B) Primary and secondary prevention of venous THROMBOSIS: 2 - 3 C) Active venous thrombosis, pulmonary embolism and prevention of recurrent venous thrombosis: 2 - 3 D) Prevention of arterial thromboembolism including patients with mechanical heart valves: 3 - 4.5 Performed By: #### L IPID, MG #### [facility] [address] [place] [address] PT Coag (PPP) [Time] 13.0 s High 9.0-12.9 [facility] Comment on above: Order Comment: at 10 14 Draw PTT at 0600 along w other labs, but may need to come back at 0700 for cardiacs. RN will let us know. jkw Performed By: #### L IPID, MG #### [facility] [address] [phone] [place] Troponin I(TnI)on 08-16-2020 Troponin I.cardiac [Mass/Vol] 25.22 ng/mL Off scale high 0-0.02 [facility] Comment on above: Result Comment: STEVE [place] Cut off value > or equal to 0.03 ng/mL in conjunction with clinical conditions of myocardial infarction. (www.escardio.org/guidelines) PERFORMED BY: [place] [address] PATHOLOGIST PROFESSOR OF PSYCHOLOGY LE SAUNDERS M.D. Performed By: #### C BC, PTT, PT #### [address] Troponin I.cardiac [Mass/Vol] 38.15 ng/mL Off scale high 0-0.02 [facility] Comment on above: Order Comment: at 04 22 Draw PTT at 0600 along w other labs per RN. sandy Result Comment: STEVE [place] Cut off value > or equal to 0.03 ng/mL in conjunction with clinical conditions of myocardial infarction. (www.escardio.org/guidelines) PERFORMED BY: [place] [address] PATHOLOGIST PROFESSOR OF PSYCHOLOGY LE SAUNDERS M.D. Performed By: #### L IPID, MG #### [address] Troponin I.cardiac [Mass/Vol] 42.35 ng/mL Off scale high 0-0.02 [facility] Comment on above: Result Comment: [place]E [place] Cut off value > or equal to 0.03 ng/mL in conjunction with clinical conditions of myocardial infarction. (www.escardio.org/guidelines) PERFORMED BY: [place] [address] PATHOLOGIST PROFESSOR OF PSYCHOLOGY LE SAUNDERS M.D. Performed By: #### L IPID, MG #### [address] Complete Blood Count Auto Di ffon 08-15-2020 Basophils (Bld) [#/Vol] 0.1 10*3/uL Normal 0.0-0.2 [facility] Comment on above: Result Comment: PERF ORMED BY: [place] [address] PATHOLOGIST PROFESSOR OF PSYCHOLOGY LE SAUNDERS M.D. Performed By: #### C BC, PTT, PT #### [facility] [address] [place] [address] [place] Basophils/100 WBC (Bld) 0.7 % Normal . [facility] Comment on above: Performed By: #### C BC, PTT, PT #### [facility] [address] Eosinophils (Bld) [#/Vol] 0.1 10*3/uL Normal 0.0-0.45 [facility] Comment on above: Performed By: #### C BC, PTT, PT #### [facility] [address] Eosinophils/100 WBC (Bld) 0.5 % Normal . [facility] Comment on above: Performed By: #### C BC, PTT, PT #### [facility] [address] Erythrocyte distribution width (RBC) [Ratio] 14.1 % Normal 12.0-14.8 [facility] Comment on above: Performed By: #### C BC, PTT, PT #### [address] Hematocrit (Bld) [Volume fraction] 39.3 % Normal 38.8-50.0 [facility] Comment on above: Performed By: #### C BC, PTT, PT #### [address] Hemoglobin (Bld) [Mass/Vol] 13.0 g/dL Normal 13.0-17.0 [facility] Comment on above: Performed By: #### C BC, PTT, PT #### [place] [address] [place] Lymphocytes (Bld) [#/Vol] 1.8 10*3/uL Normal 1.00-4.8 [facility] Comment on above: Performed By: #### C BC, PTT, PT #### [address] Lymphocytes/100 WBC (Bld) 16.1 % Normal . [facility] Comment on above: Performed By: #### C BC, PTT, PT #### [address] MCH (RBC) [Entitic mass] 26.1 pg Low 27.5-35.2 [facility] Comment on above: Performed By: #### C BC, PTT, PT #### [facility] [address] [place] [address] MCV (RBC) [Entitic vol] 79.2 fL Low 83.5-101 [facility] Comment on above: Performed By: #### C BC, PTT, PT #### [facility] [address] [place] [address] Mean Corpuscular HGB Conc 33.0 g/dL Normal 32.5-35.6 [facility] Comment on above: Performed By: #### C BC, PTT, PT #### [address] Monocytes (Bld) [#/Vol] 0.6 10*3/uL Normal 0.0-0.8 [facility] Comment on above: Performed By: #### C BC, PTT, PT #### [address] Monocytes/100 WBC (Bld) 5.6 % Normal . [facility] Comment on above: Performed By: #### C BC, PTT, PT #### [address] Neutrophils (Bld) [#/Vol] 8.7 10*3/uL High 1.8-7.7 [facility] Comment on above: Performed By: #### C BC, PTT, PT #### [address] Neutrophils/100 WBC (Bld) 77.1 % Normal . [facility] Comment on above: Performed By: #### C BC, PTT, PT #### [address] Nucleated RBC/100 WBC (Bld) [Ratio] 0.1 % Normal 0-0.5 [facility] Comment on above: Performed By: #### C BC, PTT, PT #### [address] Platelet mean volume (Bld) [Entitic vol] 7.4 fL Normal 6.6-10.1 [facility] Comment on above: Performed By: #### C BC, PTT, PT #### [address] Platelets (Bld) [#/Vol] 271 10*3/uL Normal 150-450 [facility] Comment on above: Performed By: #### C BC, PTT, PT #### [address] RBC (Bld) [#/Vol] 4.97 10*6/uL Normal 3.90-5.60 [facility] Comment on above: Performed By: #### C BC, PTT, PT #### [address] WBC (Bld) [#/Vol] 11.2 10*3/uL High 4.5-11.0 [facility] Comment on above: Performed By: #### C BC, PTT, PT #### [address] Creatine Kinaseon 08-15-2020 CK [Catalytic activity/Vol] 811 U/L High 22-269 [facility] Comment on above: Performed By: #### C KMB, CK, TROP #### [address] Creatinine Kinase MBon 08-15 CK.MB [Mass/Vol] 172.3 ng/mL High 0.6-6.3 [facility] Comment on above: Performed By: #### C KMB, CK, TROP #### [address] CKMB Relative Index 21.2 High 0.00-2.50 [facility] Comment on above: Performed By: #### C KMB, CK, TROP #### [address] ECG 12 lead ECGon 08-15-2020 ECG 12 lead ECG [facility] [place] [address] [place] [id number] Electrocardiograph Report Signed Patient: Lino Peña Jr MR#: [id number] : 1950 Acct:[id number] Age/Sex: 70 / M ADM Date: 08/15/20 Loc: 4 Room: [address] [place] [address] Type: ADM IN Attending Dr: Padmini Germain MD Ordering Provider: Ronald Ellington DO Date of Service: 08/15/20 ECG/ECG 12 lead ECG: cp Copies to: Test Reason : Blood Pressure : / mmHG Vent. Rate : 051 BPM Atrial Rate : 227 BPM P-R Int : 198 ms QRS Dur : 074 ms QT Int : 450 ms P-R-T Axes : 095 002 099 degrees QTc Int : 414 ms Normal sinus rhythm Abnormal ECG When compared with ECG of 30-MAY-2019 16:21, Nonspecific T wave abnormality now evident in Inferior leads T wave inversion now evident in Lateral leads Confirmed by MEJIA GUNN DO ([id number]) on 08/16/2020 12:42:37 PM Referred By: HOSPITALIST Electronically Signed By:MEJIA GUNN DO Transcribed By: MUS Dictated By: Mejia Gunn DO 08/15/20 1521 Signed By: 08/16/20 1242 [facility] Lipid Panelon 08-15-2020 Cholesterol [Mass/Vol] 128 mg/dL Low 140-200 [facility] Comment on above: Result Comment: Chol less than 200 mg/dl low risk Chol 201-239 mg/dl borderline risk Chol 240 mg/dl and greater high risk Performed By: #### L IPID, MG #### [facility] [address] [place] [address] [place] Cholesterol in HDL [Mass/Vol] 27 mg/dL Low 29-71 [facility] Comment on above: Result Comment: HDL CHOL ATP-III CLASSIFICATION Cardiovascular Risk HDL > or equal to 60 mg/dL LOW HDL < 40 mg/dL HIGH Performed By: #### L IPID, MG #### [facility] [address] [place] [address] [place] Cholesterol.total/C holesterol in HDL [Mass ratio] 4.7 {ratio} Normal <5.0 [facility] Comment on above: Result Comment: PERF ORMED BY: [place] [address] PATHOLOGIST PROFESSOR OF PSYCHOLOGY LE SAUNDERS M.D. Performed By: #### L IPID, MG #### [address] LDL Cholesterol,Calcula tom 92 mg/dL Normal 0-100 [facility] Comment on above: Result Comment: LDL ATP III CLASSIFICATION LDL less than 100 mg/dL Optimal LDL 100-129 mg/dL Near or above optimal LDL 130-159 mg/dL Borderline high LDL 160-189 mg/dL High LDL greater than 189 mg/dL Very high Performed By: #### L IPID, MG #### [address] Triglyceride w/Reflex 44 mg/dL Normal 35-149 [facility] Comment on above: Result Comment: TRIG ATP III CLASSIFICATION TRIG less than 150 mg/dL Normal TRIG 150-199 mg/dL Borderline high TRIG 200-500 mg/dL High TRIG greater than 500 mg/dL Very high Standard traceable to the Center for Disease Conrtrol and Prevention (CDC) test method. Performed By: #### L IPID, MG #### [address] VLDL CHOLESTEROL 8 mg/dL Normal [facility] Comment on above: Performed By: #### L IPID, MG #### [address] Magnesiumon 08-15-2020 Magnesium [Mass/Vol] 1.9 mg/dL Normal 1.6-2.6 [facility] Comment on above: Performed By: #### L IPID, MG #### [facility] [address] [place] [address] Partial Thromboplastin Timeo n 08-15-2020 aPTT Coag (Bld) [Time] 50.5 s High 25.1-36.5 [facility] Comment on above: Result Comment: PERF ORMED BY: [place] [address] PATHOLOGIST PROFESSOR OF PSYCHOLOGY LE SAUNDERS M.D. Performed By: #### C BC, PTT, PT #### [facility] [address] [place] [address] Prothrombin Time INRon 08-15 INR Coag (PPP) [Relative time] 1.1 {INR} [facility] Comment on above: Result Comment: INR Therapeutic Range A) Pre- and Peroperative OAT started two weeks before surgery. NOT HIP SURGERY: 1.5 - 2.5 HIP SURGERY: 2 - 3 B) Primary and secondary prevention of venous THROMBOSIS: 2 - 3 C) Active venous thrombosis, pulmonary embolism and prevention of recurrent venous thrombosis: 2 - 3 D) Prevention of arterial thromboembolism including patients with mechanical heart valves: 3 - 4.5 Performed By: #### C BC, PTT, PT #### [address] PT Coag (PPP) [Time] 12.4 s Normal 9.0-12.9 [facility] Comment on above: Performed By: #### C BC, PTT, PT #### [facility] [address] [place] [address] Troponin I(TnI)on 08-15-2020 Troponin I.cardiac [Mass/Vol] 8.97 ng/mL Off scale high 0-0.02 [facility] Comment on above: Result Comment: Resu lts called at 1615 on 08/15/20 STEVE TX Cut off value > or equal to 0.03 ng/mL in conjunction with clinical conditions of myocardial infarction. (www.escardio.org/guidelines) PERFORMED BY: [place] [address] PATHOLOGIST PROFESSOR OF PSYCHOLOGY LE SAUNDERS M.D. Performed By: #### C KMB, CK, TROP #### [facility] [address] [place], [place] [id number] [facility] Ambulatory Clinical Summaryo n 06-01-2020 Ambulatory Clinical Summary {[id number] Normal [facility] Patient Educationon 06-01-20 Patient Education Family Medicine Benign Prostatic Hypertrophy The prostate gland is part of the reproductive system of men. A normal prostate is about the size and shape of a walnut. The prostate gland makes a fluid that is mixed with sperm to make semen. This gland surrounds the urethra and is located in front of the rectum and just below the bladder. The bladder is where urine is stored. The urethra is the tube through which urine passes from the bladder to get out of the body. The prostate grows as a man ages. An enlarged prostate not caused by cancer is called benign prostatic hypertrophy (BPH). This is a common health problem in men over age 50. This condition is a normal part of aging. An enlarged prostate presses on the urethra. This makes it harder to pass urine. In the early stages of enlargement, the bladder can get by with a narrowed urethra by forcing the urine through. If the problem gets worse, medical or surgical treatment may be required. This condition should be followed by your caregiver. Longstanding back pressure on the kidneys can cause infection. Back pressure and infection can progress to bladder damage and kidney (renal ) failure. If needed, your caregiver may refer you to a specialist in kidney and prostate disease (urologist ). CAUSES The exact cause is not known. SYMPTOMS ? You are not able to completely empty your bladder. ? Getting up often during the night to urinate. ? Need to urinate frequently during the day. ? Difficultly in starting urine flow. ? Decrease in size and strength of the urine stream. ? Dribbling after urination. ? Pain on urination (more common with infection). ? Inability to pass your water. This needs immediate treatment. DIAGNOSIS These tests will help your caregiver understand your problem: ? Digital rectal exam (ALVARO). In a rectal exam, your caregiver checks your prostate by putting a gloved, lubricated finger into the rectum to feel the back of your prostate gland. This exam detects the size of the gland and abnormal lumps or growths. ? Urinalysis (exam of the urine). This may include a culture if there is concern about infection. ? Prostate Specific Antigen (PSA). This is a blood test used to screen for prostate cancer. It is not used alone for diagnosing prostate cancer. ? Rectal ultrasound (sonogram). This test uses sound waves to electronically produce a picture of the prostate. It helps examine the prostate gland for cancer. TREATMENT Mild symptoms may not need treatment. Simple observation and yearly exams may be all that is required. Medications and surgery are options for more severe problems. Your caregiver can help you make an informed decision for what is best. Two classes of medications are available for relief of prostate symptoms: ? Medications that shrink the prostate. This helps relieve symptoms. ? Uncommon side effects include problems with sexual function. ? Medications to relax the muscle of the prostate. This also relieves the obstruction. ? Side effects can include dizziness, fatigue, lightheadedness, and retrograde ejaculation (diminished volume of ejaculate). Several types of surgical treatments are available for relief of prostate symptoms: ? Transurethral resection of the prostate (TURP). In this treatment, an instrument is inserted through opening at the tip of the penis. It is used to cut away pieces of the inner core of the prostate. The pieces are removed through the same opening of the penis. This removes the obstruction and helps get rid of the symptoms. ? Transurethral incision (TUIP). In this procedure, small cuts are made in the prostate. This lessens the prostates pressure on the urethra. ? Transurethral microwave thermotherapy (TUMT). This procedure uses microwaves to create heat. The heat destroys and removes a small amount of prostate tissue. ? Transurethral needle ablation (TUNA). This is a procedure that uses radio frequencies to do the same as TUMT. ? Interstitial laser coagulation (ILC). This is a procedure that uses a laser to do the same as TUMT and TUNA. ? Transurethral electrovaporization (TUVP). This is a procedure that uses electrodes to do the same as the procedures listed above. Regardless of the method of treatment chosen, you and your caregiver will discuss the options. With this knowledge, you along with your caregiver can decide upon the best treatment for you. SEEK MEDICAL CARE IF: ? You develop chills, fever of 100.5? F (38.1? C), or night sweats. ? There is unexplained back pain. ? Symptoms are not helped by medications prescribed. ? You develop medication side effects. ? Your urine becomes very dark or has a bad smell. SEEK IMMEDIATE MEDICAL CARE IF: ? You are suddenly unable to urinate. This is an emergency. You should be seen immediately. ? There are large amounts of blood or clots in the urine. ? Your urinary problems become unmanageable. ? You develop lightheadedness, severe dizz (more content not included)... Normal [place] [facility] Urology Office/Clinic Noteon 06-01-2020 Urology Office/Clinic Note Chief Complaint 4 month follow up w/ PVR HPI Staff Andreia is a 69 y.o. male here for 4 month follow up. Previous dx: Acute kidney injury, Bladder stone, BPH with urinary obstruction, Kidney disease, neurogenic bladder, nocturia, urinary retention. S/P Urodynamics 07/07/19. Tamsulosin 0.4 mg daily which is working well. Patient has improved. Patient is unable to give urine sample today. Today's PVR 89 ML Dysuria: Denies Incomplete bladder emptying: Denies Hematuria: Denies Frequency: Denies Urgency: yes Nocturia: Denies Stream: Normal stream Leaking: Denies Post void dripping: Denies Wearing pads/ Depends: Denies Urge incontinence: Denies Stress incontinence: Denies Incontinence without Sensory Awareness: Denies Abdominal pain: Denies Flank pain: Denies Sexual complaints: _ History of Present Illness Pt is here for 4 month follow up w/PVR due to BPH and Incomplete Bladder Emptying. Reviewed PVR. Pt has no associated symptoms, no fever, no chills, no flank pain. Overall the patient feels he is voiding fairly well. He has continuing on the tamsulosin 0.4 mg daily. He previously had urodynamics and cystoscopy. The urodynamics demonstrated suboptimal bladder function. He had about 149 cc residual urine at last visit. Current level as noted below. Has had no complicating factors such as blood in the urine or intermittent urinary tract infection since last visit Review of Systems PHQ Score Initial Depression Screen Score: 0 ROS - Provider Constitutional: denies weight loss, denies hot flashes. Eyes: denies eye problems. Gastrointestinal: denies nausea, denies vomiting. Cardiovascular: denies chest pain or angina. Integumentary: no dryness Musculoskeletal: denies musculoskeletal symptoms. ENMT: denies otolaryngeal symptoms. Respiratory: no shortness of breath. Heme/Lymph: denies easy bleeding tendency, denies easy bruising tendency. Psychiatric: no confusion, no anxiety. Genitourinary: denies dysuria, denies hematuria, denies discharge, denies urinary frequency, denies urinary hesitancy, denies nocturia, denies incontinence, denies genital sores, denies decreased libido, and denies erectile dysfunction. Physical Exam Vitals & Measurements BP: 120/60 HT: 165 cm HT: 165.0 cm WT: 113 kg WT: 113.0 kg BMI: 41.51 General Appearance: alert, no distress, well nourished, well developed male. Assessment/Plan Will return for follow up in 6 months w/PVR Will order PSA for now. 1. BPH with urinary obstruction (N40.1: Benign prostatic hyperplasia with lower urinary tract symptoms) Discussed with pt the effectiveness of current BPH medications. Pt will continue Tamsulosin 0.4mg qd. 2. Urinary retention (R33.9: Retention of urine, unspecified) Pt's PVR today is 89cc. 3. Urinary urgency (R39.15: Urgency of urination) Mild, ongoing 4. BMI 39.0-39.9,adult (Z68.39: Body mass index [BMI] 39.0-39.9, adult) Overall the patient is doing fairly well on the tamsulosin medication with a decreased PVR. Given these facts, the plan will be for continued observation and a 6-month visit with a repeat PVR. We will obtain a PSA level as he is unsure whether he has had a recent PSA in some time. I did reinforce that it is quite important that he make a follow-up appointment with his primary Care physician, Dr. Herrera to manage him medically. He states he will make an appointment tomorrow. Follow-up With When Contact Information REJI RIBEIRO, Osmin Osorio In 6 months Additional Instructions: w/PVR Patient Education Benign Prostatic Hypertrophy Obesity, [id number] ITova, personally scribed for Dr. Mendoza on 06/01/2020 15:56:55. . Documentation recorded by the scribe, Tova Banks, accurately reflects the services(s) I performed and decisions made by me. Authenticated by Dr. Mendoza on 06/01/2020 15:59:15. Problem List/Past Medical History Ongoing Acute kidney injury Bladder stone BMI 39.0-39.9,adult BPH with urinary obstruction Kidney disease Neurogenic bladder Nocturia Urinary retention Urinary urgency Historical None Procedure/Surgical History Urodynamics (07/07/2019), Cystoscopy (06/13/2019), Kidney, None. Medications tamsulosin 0.4 mg Cap, 0.4 mg= 1 cap(s), Oral, Daily, 11 refills Allergies No Known Allergies Social History Tobacco Never (less than 100 in lifetime) Tobacco Use:. Never Smokeless Tobacco Use:., 06/01/2020 Family History Diabetes mellitus type 1: Mother. Heart disease: Mother. Immunizations Vaccine Date Status Comments influenza virus vaccine, inactivated - Not Given Postpone due to refusal influenza virus vaccine, live, trivalent - Not Given Patient Refuses Normal [facility] Comment on above: Result Comment: Elec tronically Signed By: Osmin MENDOZA MD\.br\Date and Time Signed: 06/01/20 16:00 EST\.br\Electronically Co-Signed By: Tova Navarro\.br\Date and Time Co-Signed: 06/01/20 15:57 EST Vital Signs Date Time Vital Sign Value Performing Clinician Leannai mary 06-06-2023 10:11-0500 Body height 165.1 cm Johnathan Drake DO Work Phone: [facility] 06-06-2023 10:11-0500 Body mass index (BMI) [Ratio] 42.6 kg/m2 Johnathan Drake DO Work Phone: [facility] 06-06-2023 10:11-0500 Body weight 116.12 kg Johnathan Drake DO Work Phone: [facility] 06-06-2023 10:11-0500 Diastolic blood pressure 94 mm[Hg] Johnathan Drake DO Work Phone: [facility] 06-06-2023 10:11-0500 Heart rate 72 /min Johnathan Drake DO Work Phone: [facility] 06-06-2023 10:11-0500 Systolic blood pressure 110 mm[Hg] Johnathan Drake DO Work Phone: [facility] 11-29-2022 14:08-0400 Body height 165.1 cm Fabio M Hoy Work Phone: [facility] [address] DO Work Phone: 11-29-2022 14:08-0400 Body mass index (BMI) [Ratio] 40.27 kg/m2 Fabio M Hoy Work Phone: [facility] [address] DO Work Phone: 11-29-2022 14:08-0400 Body surface area Derived from formula 2.15 m2 Fabio M Hoy Work Phone: [facility] [address] DO Work Phone: 11-29-2022 14:08-0400 Body weight 109.77 kg Fabio M Hoy Work Phone: [facility] [address] DO Work Phone: 11-29-2022 14:08-0400 Diastolic blood pressure 86 mm[Hg] Fabio M Hoy Work Phone: [facility] [address] DO Work Phone: 11-29-2022 14:08-0400 Heart rate 72 /min Fabio M Hoy Work Phone: [facility] [address] DO Work Phone: 11-29-2022 14:08-0400 Systolic blood pressure 138 mm[Hg] Fabio M Hoy Work Phone: [facility] [address] DO Work Phone: 05-10-2022 12:03-0500 Body height 165.1 cm Fabio M Hoy Work Phone: [facility] [address] DO Work Phone: 05-10-2022 12:03-0500 Body mass index (BMI) [Ratio] 41.77 kg/m2 Fabio M Hoy Work Phone: [facility] [address] DO Work Phone: 05-10-2022 12:03-0500 Body surface area Derived from formula 2.18 m2 Fabio M Hoy Work Phone: [facility] [address] DO Work Phone: 05-10-2022 12:03-0500 Body weight 113.85 kg Fabio M Hoy Work Phone: [facility] [address] DO Work Phone: 05-10-2022 12:03-0500 Diastolic blood pressure 88 mm[Hg] Fabio M Hoy Work Phone: [facility] [address] DO Work Phone: 05-10-2022 12:03-0500 Heart rate 68 /min Fabio M Hoy Work Phone: [facility] [address] DO Work Phone: 05-10-2022 12:03-0500 Systolic blood pressure 152 mm[Hg] Fabio M Hoy Work Phone: [facility] [address] DO Work Phone: 05-10-2021 12:55-0500 Body height 165.1 cm Fabio M Hoy Work Phone: [facility] [address] [place] Work Phone: 05-10-2021 12:55-0500 Body mass index (BMI) [Ratio] 37.94 kg/m2 Fabio M Hoy Work Phone: [facility] [address] [place] Work Phone: 05-10-2021 12:55-0500 Body surface area Derived from formula 2.09 m2 Fabio M Hoy Work Phone: [facility] [address] [place] Work Phone: 05-10-2021 12:55-0500 Body weight 103.42 kg Fabio M Hoy Work Phone: [facility] [address] [place] Work Phone: 05-10-2021 12:55-0500 Diastolic blood pressure 78 mm[Hg] Fabio M Hoy Work Phone: [facility] [address] [place] Work Phone: 05-10-2021 12:55-0500 Heart rate 92 /min Fabio M Hoy Work Phone: [facility] [address] [place] Work Phone: 05-10-2021 12:55-0500 Systolic blood pressure 120 mm[Hg] Fabio M Hoy Work Phone: [facility] [address] [place] Work Phone: 04-13-2021 14:22-0400 Body height 165.1 cm Fabio M Hoy Work Phone: [facility] [address] DO Work Phone: 04-13-2021 14:22-0400 Body mass index (BMI) [Ratio] 36.78 kg/m2 Fabio M Hoy Work Phone: [facility] [address] DO Work Phone: 04-13-2021 14:22-0400 Body surface area Derived from formula 2.06 m2 Fabio M Hoy Work Phone: [facility] [place] [address] DO Work Phone: 04-13-2021 14:22-0400 Body weight 100.25 kg Fabio M Hoy Work Phone: [facility] [address] DO Work Phone: 04-13-2021 14:22-0400 Diastolic blood pressure 72 mm[Hg] Fabio M Hoy Work Phone: [facility] [address] DO Work Phone: 04-13-2021 14:22-0400 Heart rate 100 /min Fabio Herrera Work Phone: [facility] [address] DO Work Phone: 04-13-2021 14:22-0400 Systolic blood pressure 112 mm[Hg] Fabio Herrera Work Phone: [facility] [address] DO Work Phone: Encounters Encounter Date Encounter Type Care Provider Facility Start: 06-06-2023 End: 06-06-2023 ambulatory [facility] Ambulatory Start: 06-06-2023 End: 06-06-2023 Office outpatient visit 25 minutes Johnathan Souzadon DO Work Phone: [facility] Comment on above: Status post insertio n of drug eluting coronary artery stent; Persistent atrial fibrillation (CMS/HCC); Mixed hyperlipidemia; Ischemic cardiomyopathy; Primary hypertension; H/O non-ST elevation myocardial infarction (NSTEMI); Coronary artery disease involving [place] coronary artery of [place] heart without angina pectoris; Class 3 severe obesity due to excess calories with body mass index (BMI) of 40.0 to 44.9 in adult, unspecified whether serious comorbidity present (CMS/HCC) Start: 11-29-2022 Office outpatient vi sit 25 minutes Fabio Herrera Work Phone: [facility] [address] DO Work Phone: Start: 11-29-[address] Fabio Herrera Facility: Start: 09-21-2022 End: 09-22-2022 Evaluation and management of inpatient DR FABIO HERRERA . Facility:[facility] Start: 06-19-2022 End: 06-19-[address] TIFF LOVE . Facility:[facility] Start: 05-17-2022 End: 05-19-[address] FABIO HERRERA . Facility:[facility] Start: 05-10-2022 ambulatory Johnathan Drake Facility: Start: 05-10-2022 Office outpatient vi sit 25 minutes Fabio M Rickydwight Work Phone: [facility] [address] DO Work Phone: Start: 01-09-2022 Rx Renewal Fabio Herrera Work Phone: [facility] [address] DO Work Phone: Start: 12-22-2021 End: 12-22-[address] STIVEN ZIEGLER Facility:[facility] Start: 12-09-2021 End: 12-09-[address] TIFF LOVE . Facility:[facility] Start: 05-10-2021 Office outpatient vi sit 15 minutes Fabio Herrera Work Phone: [facility] [address] [place] Work Phone: Start: 04-13-2021 Patient encounter procedure Fabio Herrera Work Phone: [facility] [address] DO Work Phone: Procedures Date Procedure Procedure Detail Performing Clinician Start: 06-06-2023 ECG 12-LEAD JOHNATHAN FISH Start: 06-06-2023 Ecg routine ecg w/le ast 12 lds w/i&r Johnathan Drake DO Work Phone: Start: 06-05-2023 History of placement of stent for coronary artery disease Status post insertion of drug eluting coronary artery stent Johnathan Drake DO Work Phone: Cardiac catheterization Sven Herrera Work Phone: Comment on above: x3; History of placement of stent for coronary artery disease Status post insertion of drug eluting coronary artery stent Fabio Herrera Work Phone: History of placement of stent for coronary artery disease Status post insertion of drug eluting coronary artery stent oJhnathan Drake DO Work Phone: NEGATED: Highlighted row has not occurred! Colonoscopy Fabio Herrera Work Phone: Plan of Treatment Date Care Activity Detail Author Start: 06-03-2024 End: 06-03-2024 Patient encounter procedure 06/03/2024 1:30 PM EST Office Visit [facility] [address] [facility] [address] [place] [address] Johnathan Drake DO [address] [facility] [address] [place] [address] [facility] Start: 06-06-2023 End: 06-06-2024 Alanine aminotransferase [Enzymatic activity/volume] in Serum or Plasma by With P-5'-P Alanine Aminotransferase Lab Routine Mixed hyperlipidemia Expected: 06/06/2023 (Approximate), Expires: 06/06/2024 [facility] Service Area Work Phone: Comment on above: Expected: 06/06/2023 (Approximate), Expi res: 06/06/2024 Start: 06-06-2023 End: 06-06-2024 Aspartate aminotransferase [Enzymatic activity/volume] in Serum or Plasma by With P-5'-P Aspartate Aminotransferase Lab Routine Mixed hyperlipidemia Expected: 06/06/2023 (Approximate), Expires: 06/06/2024 [facility] Work Phone: Comment on above: Expected: 06/06/2023 (Approximate), Expi res: 06/06/2024 Start: 06-06-2023 End: 06-06-2024 Lipid 1996 panel - Serum or Plasma Lipid Panel Lab Routine Mixed hyperlipidemia Expected: 06/06/2023 (Approximate), Expires: 06/06/2024 [facility] Work Phone: Comment on above: Expected: 06/06/2023 (Approximate), Expi res: 06/06/2024 Start: 06-06-2023 FUV, Provider: Johnathan Drake, Status: Christian, Time: 10:50 AM FUV, Provider: Johnathan Drake, Status: Pen, Time: 10:50 AM [facility] 250 DO Work Phone: Start: 02-23-2023 Influenza vaccination Influenza Vaccine (#1) [facility] Start: 10-23-2022 FUV, Provider: Maureen Dominguez, Status: Pen, Time: 1:00 PM FUV, Provider: Maureen Dominguez, Status: Pen, Time: 1:00 PM [facility] [address] DO Work Phone: Start: 04-18-2022 FUV, Provider: Johnathan Drake, Status: Pen, Time: 11:10 AM FUV, Provider: Johnathan Drake, Status: Pen, Time: 11:10 AM [facility] 250 DO Work Phone: Start: 11-08-2021 FUV, Provider: Johnathan Drake, Status: Pen, Time: 2:30 PM FUV, Provider: Johnathan Drake, Status: Pen, Time: 2:30 PM [facility] [place] Work Phone: Start: 05-10-2021 FUV, Provider: Johnathan Drake, Status: Pen, Time: 1:00 PM FUV, Provider: Johnathan Drake, Status: Pen, Time: 1:00 PM [facility] Work Phone: Start: 2001 Zoster Vaccines (1 of 2) Zoster Vaccines (1 of 2) [facility] Start: 1973 DTaP/Tdap/Td Vaccines (1 - Tdap) DTaP/Tdap/Td Vaccines (1 - Tdap) [facility] Start: 1969 Hepatitis C screening Hepatitis C Screening [facility] Start: 1957 Pneumococcal Vaccine: 65+ Years (1 - PCV) Pneumococcal Vaccine: 65+ Years (1 - PCV) [facility] Start: 1950 COVID-19 Vaccine (#1) COVID-19 Vaccine (#1) [facility] Start: 1950 Lipid panel Lipid Panel [facility] Start: 1950 Medicare Annual Wellness Visit Medicare Annual Wellness Visit (AWV) [facility] Start: 1950 Screening for malignant neoplasm of colon [facility] Immunizations Immunization Date Immunization Notes Care Provider Julian mcbride 03-14-2021 influenza virus vacc ine, unspecified formulation Fabio Herrera Work Phone: [facility] DO Work Phone: 03-05-2021 influenza, high dose seasonal, preservative-free Fabio Herrera Work Phone: [facility] DO Work Phone: 08-17-2020 Fluzone High-Dose Quadrivalent 0.7 ML Intramuscular Suspension Prefilled Syringe Fabio Herrera Work Phone: [facility] DO Work Phone: Payers Date Payer Category Payer Medicare MEDICARE MEDICAR E PART A AND B [id number] 2016-Present [address] [place] [address] [id number] 1959 Medicare [id number] 1950 Unknown [id number] 1950 Unknown [id number] 1950 Unknown [id number] 1951 Unknown [id number] 1950 Unknown [id number] 1950 Unknown [id number] 1950 Unknown [id number] 1950 Unknown [id number] Unknown MEDICARE Social History Date Type Detail Facility Start: 06-06-2023 No illicit drug use No illicit drug use [facility] 600 DO Work Phone: Comment on above: pop once in awhile; Start: 06-06-2023 Tobacco smoking stat us NHIS Never smoked tobacco [facility] Start: 06-06-2023 Tobacco use and exposure Smokeless tobacco non-user [facility] Work Phone: Start: 06-06-2023 Alcohol intake Lifetime non-d che (finding) [facility] Work Phone: Start: 06-06-2023 Tobacco use panel [facility] Work Phone: Start: 1950 Sex Assigned At Not on file U [facility] Work Phone: Start: 05-27-2023 End: 06-06-2023 Exposure to SARS-CoV-2 (event) Not sure [facility] Clinical Note 03-17-2021 Note Date & Type Note Facility 03-17-2021 Note Education Materials Gastroenterology Cholelithiasis Cholelithiasis is also called gallstones. It is a kind of gallbladder disease. The gallbladder is an organ that stores a liquid (bile) that helps you digest fat. Gallstones may not cause symptoms (may be silent gallstones) until they cause a blockage, and then they can cause pain (gallbladder attack). Follow these instructions at home: ? Take [id number] and prescription medicines only as told by your doctor. ? Stay at a healthy weight. ? Eat healthy foods. This includes: ? Eating fewer fatty foods, like fried foods. ? Eating fewer refined carbs (refined carbohydrates). Refined carbs are breads and grains that are highly processed, like white bread and white rice. Instead, choose whole grains like whole-wheat bread and brown rice. ? Eating more fiber. Almonds, fresh fruit, and beans are healthy sources of fiber. ? Keep all follow-up visits as told by your doctor. This is important. Contact a doctor if: ? You have sudden pain in the upper right side of your belly (abdomen). Pain might spread to your right shoulder or your chest. This may be a sign of a gallbladder attack. ? You feel sick to your stomach (are nauseous). ? You throw up (vomit). ? You have been diagnosed with gallstones that have no symptoms and you get: ? Belly pain. ? Discomfort, burning, or fullness in the upper part of your belly (indigestion). Get help right away if: ? You have sudden pain in the upper right side of your belly, and it lasts for more than 2 hours. ? You have belly pain that lasts for more than 5 hours. ? You have a fever or chills. ? You keep feeling sick to your stomach or you keep throwing up. ? Your skin or the whites of your eyes turn yellow (jaundice). ? You have dark-colored pee (urine). ? You have light-colored poop (stool). Summary ? Cholelithiasis is also called gallstones. ? The gallbladder is an organ that stores a liquid (bile) that helps you digest fat. ? Silent gallstones are gallstones that do not cause symptoms. ? A gallbladder attack may cause sudden pain in the upper right side of your belly. Pain might spread to your right shoulder or your chest. If this happens, contact your doctor. ? If you have sudden pain in the upper right side of your belly that lasts for more than 2 hours, get help right away. This information is not intended to replace advice given to you by your health care provider. Make sure you discuss any questions you have with your health care provider. Document Revised: 05/24/2018 Document Reviewed: 02/25/2017 [employer] Patient Education ? 2019 [employer] [facility] Clinical Note 03-17-2021 Note Date & Type Note Facility 03-17-2021 Note [facility] Discharge Summary PERSON INFORMATION Name LINO PEÑA Jr Age 70 Years 1950 Sex MALE Language Salvadorean PCP FABIO HERRERA Marital Status Med Service Swing Acct# Arrival 03/11/2021 16:55:00 Visit Reason COVID 19, WEAKNESS Acuity LOS 006 00:43 Address: [address] [place] [id number] Comment: PROVIDER INFORMATION VITALS INFORMATION Vital Sign Triage Latest Temp Oral 36.9 DegC 36.5 DegC Temp Temporal 36.6 DegC 36.5 DegC Temp Intravascular Temp Axillary Temp Rectal 02 Sat 95 % 95 % Respiratory Rate 22 br/min 18 br/min Peripheral Pulse Rate 86 bpm 73 bpm Apical Heart Rate 95 bpm 89 bpm Blood Pressure 123 mmHg / 77 mmHg 108 mmHg / 68 mmHg Comment: MEDICAL INFORMATION Allergy Info: No known allergies Medication List: New Medications [facility], [address] [place] [address] [phone], [phone] apixaban (Eliquis 5 mg oral tablet) 1 tab(s) Oral 2 times a day. Refills: 0. clopidogrel (Plavix 75 mg oral tablet) 1 tab(s) Oral every day. Refills: 0. Medications to Continue That Have Not Changed Other Medications albuterol (Albuterol (Eqv-ProAir HFA)) 2 puff(s) Inhalation every 6 hours as needed shortness of breath or wheezing. aspirin (aspirin 81 mg oral tablet) 1 tab(s) Oral every day. atorvastatin (atorvastatin 80 mg oral tablet) 1 tab(s) Oral once a day (at bedtime). famotidine (Pepcid 20 mg oral tablet) 1 tab(s) Oral 2 times a day. loperamide (Imodium A-D 2 mg oral tablet) 1 tab(s) Oral 4 times a day as needed for loose stool. metoprolol (Metoprolol Tartrate 25 mg oral tablet) 1 tab(s) Oral 2 times a day. pantoprazole (pantoprazole 40 mg oral delayed release tablet) 1 tab(s) Oral every day. No Longer Take the Following Medications ticagrelor (Brilinta (ticagrelor) 90 mg oral tablet) 1 tab(s) Oral 2 times a day. warfarin (warfarin 5 mg oral tablet) 1 tab(s) Oral every day. Comment: Lab and Radiology Results Laboratory or Other Results This Visit (last charted value for your 03/11/2021 visit) Hematology 03/17/2021 1:35 PM Hct: 36.1 % -- Normal range between ( 34.8 and 51.9 ) Hgb: 11.7 gm/dL -- Normal range between ( 11.8 and 17.7 ) MCH: 25 pg -- Normal range between ( 24 and 34 ) MCHC: 32 gm/dL -- Normal range between ( 26 and 37 ) MCV: 76 fL -- Normal range between ( 81 and 100 ) MPV: 9.3 fL -- Normal range between ( 6.3 and 10.2 ) Platelet: 373 x103/mcL -- Normal range between ( 138 and 427 ) RBC: 4.73 x106/mcL -- Normal range between ( 3.70 and 5.30 ) RDW: 15.4 % -- Normal range between ( 11.5 and 15.0 ) WBC: 6.6 x103/mcL -- Normal range between ( 3.5 and 10.5 ) Auto Eos %: 4.8 % -- Normal range between ( 0.9 and 4.0 ) Auto Lymph %: 16 % -- Normal range between ( 14 and 48 ) Auto Neut %: 68 % -- Normal range between ( 44 and 88 ) Eos Abs#: 0.3 x103/mcL -- Normal range between ( 0.0 and 0.4 ) Lymph Abs#: 1.0 x103/mcL -- Normal range between ( 1.3 and 2.9 ) [place] Abs#: 0.6 x103/mcL -- Normal range between ( 0.0 and 0.8 ) Auto Baso %: 1.2 % -- Normal range between ( 0.2 and 2.0 ) Auto [place] %: 10 % -- Normal range between ( 1 and 12 ) Baso Abs#: 0.1 x103/mcL -- Normal range between ( 0.0 and 0.2 ) Neut Abs#: 4.5 x103/mcL -- Normal range between ( 1.5 and 9.2 ) Coagulation 03/17/2021 3:00 PM INR: 2.60 -- Normal range between ( 0.91 and 1.11 ) PT: 26.8 second(s) -- Normal range between ( 9.7 and 11.8 ) Chemistry 03/17/2021 1:34 PM Creatinine Level: 0.88 mg/dL -- Normal range between ( 0.90 and 1.30 ) Albumin Level: 2.7 gm/dL -- Normal range between ( 3.5 and 5.0 ) Alk Phos: 92 IU/L -- Normal range between ( 32 and 91 ) Bili Total: 0.8 mg/dL -- Normal range between ( 0.3 and 1.2 ) BUN: 17 mg/dL -- Normal range between ( 8 and 26 ) Chloride Level: 102 mmol/L -- Normal range between ( 101 and 111 ) CO2: 25 mmol/L -- Normal range between ( 21 and 32 ) Glucose Level: 117.0 mg/dL -- Normal range between ( 74.0 and 118.0 ) Osmolality: 282 mOsm/L Potassium Level: 3.8 mmol/L -- Normal range between ( 3.6 and 5.1 ) Sodium Level: 140.0 mmol/L -- Normal range between ( 136.0 and 144.0 ) Protein Total: 6.7 gm/dL -- Normal range between ( 6.5 and 8.1 ) Anion Gap: 17.0 mmol/L -- Normal range between ( 5.0 and 19.0 ) Calcium Level: 8.3 mg/dL -- Normal range between ( 8.9 and 10.3 ) ALT/SGPT: 178.0 IU/L -- Normal range between ( 17.0 and 63.0 ) AST/SGOT: 196 IU/L -- Normal range between ( 15 and 41 ) BUN/Creat Ratio: 19.0 -- Normal range between ( 4.6 and 16.2 ) Globulin: 4.0 gm/dL -- Normal range between ( 1.5 and 4.3 ) A/G Ratio: 0.7 -- Normal range between ( 1.4 and 2.6 ) eGFR AA: >60 mL/min/1.73m2 eGFR Non AA: >60 mL/min/1.73m2 03/14/2021 6:29 AM Bili Direct: 0.20 mg/dL -- Normal range between ( 0.10 and 0.50 ) Bili Indirect: 1.1 mg/dL -- Normal range between ( 0.2 and 0.8 ) [facility] Order 03/17/2021 3:00 (more content not included)... [facility] Evaluation note Note Date & Type Note Facility Evaluation note Diagnosis Status post insertion of drug eluting coronary artery stent Persistent atrial fibrillation (CMS/HCC) Atrial fibrillation Mixed hyperlipidemia Ischemic cardiomyopathy Other specified forms of chronic ischemic heart disease Primary hypertension Unspecified essential hypertension H/O non-ST elevation myocardial infarction (NSTEMI) Coronary artery disease involving [place] coronary artery of [place] heart without angina pectoris Class 3 severe obesity due to excess calories with body mass index (BMI) of 40.0 to 44.9 in adult, unspecified whether serious comorbidity present (CMS/HCC) documented in this encounter [facility] Work Phone: History of Present illness Narrative Note Date & Type Note Facility History of Present illness Narrative The patient states he has been generally stable since the last visit. Comorbid Illnesses: hypertension and hyperlipidemia.Symptoms: denies chest pain at rest, denies exertional chest pain, denies dyspnea, denies fatigue, stable exercise intolerance, denies palpitations, denies edema, denies orthopnea, resolved dizziness and resolved orthostatic dizziness.Disease Monitoring: -[facility] 600 DO Work Phone: History of Present illness Narrative Note Date & Type Note Facility History of Present illness Narrative The patient states he has been generally doing well since the last visit. Comorbid Illnesses: hypertension and hyperlipidemia.Symptoms: denies chest pain at rest, denies exertional chest pain, denies dyspnea, stable fatigue, denies exercise intolerance, denies palpitations, denies edema, denies orthopnea, denies dizziness and denies orthostatic dizziness.Associated symptoms: no syncope.His symptoms do not limit his activities.Disease Monitoring: The patient has had a weight loss.Medications: the patient is adherent with his medication regimen. He denies medication side effects. [facility] Work Phone: History of Present illness Narrative Jonhathan Drake, DO - 06/06/2023 10:50 AM EST Note Date & Type Note Facility History of Present illness Narrative Subjective Lino Peña is a 72 y.o. male Chief Complaint Follow-up Returns for follow-up, he is doing well, working at [employer] 4 hours a day 5 days a week. He has had no cardiovascular events or complaints or nitrate usage or hospitalizations. He sustained high risk non-ST elevation TX in July 2020, with high risk two-vessel coronary intervention of the proximal through mid LAD and proximal RCA and mid PLV branch x4 BARBARA total. Left ventricular function is 45 to 50% when measured immediately after TX. He has paroxysmal A. fib, currently in persistent A-fib that is rate controlled at 76 beats a minute on exam and in today's ECG. He remains on Eliquis and metoprolol. He has underlying obesity and hyperlipidemia he is a non-smoker Recommendations, continue current therapies, we have confirmed chronic persistent A-fib that is asymptomatic and will continue with rate control for the time being with lifelong anticoagulation. Review of Systems All other systems reviewed and are negative. Visit Vitals BP (!) 110/94 (BP Location: Right arm, Patient Position: Sitting) Pulse 72 Ht 1.651 m (5' 5 ) Wt 116 kg (256 lb) BMI 42.60 kg/m Smoking Status Never BSA 2.31 m Objective Physical Exam Constitutional: Appearance: Normal appearance. He is normal weight. HENT: Nose: Nose normal. Neck: Vascular: No carotid bruit. Cardiovascular: Rate and Rhythm: Normal rate. Pulses: Normal pulses. Heart sounds: Normal heart sounds. Pulmonary: Effort: Pulmonary effort is normal. Abdominal: General: Bowel sounds are normal. Palpations: Abdomen is soft. Genitourinary: Rectum: Normal. Musculoskeletal: General: Normal range of motion. Cervical back: Normal range of motion. Right lower leg: No edema. Left lower leg: No edema. Skin: General: Skin is warm and dry. Neurological: General: No focal deficit present. Mental Status: He is alert. Psychiatric: Mood and Affect: Mood normal. Behavior: Behavior normal. Thought Content: Thought content normal. Judgment: Judgment normal. Current Medications Current Outpatient Medications: apixaban (Eliquis) 5 mg tablet, Take 1 tablet (5 mg) by mouth 2 times a day., Disp: , Rfl: aspirin 81 mg EC tablet, Take 1 tablet (81 mg) by mouth 2 times a week., Disp: , Rfl: atorvastatin (Lipitor) 80 mg tablet, Take 1 tablet (80 mg) by mouth once daily at bedtime., Disp: , Rfl: famotidine (Heartburn Relief, famotidine,) 10 mg tablet, Take by mouth., Disp: , Rfl: losartan (Cozaar) 25 mg tablet, Take 1 tablet (25 mg) by mouth once daily., Disp: , Rfl: metoprolol tartrate (Lopressor) 25 mg tablet, Take 0.5 tablets (12.5 mg) by mouth 2 times a day., Disp: , Rfl: Assessment/Plan 1. Status post insertion of drug eluting coronary artery stent 2. Persistent atrial fibrillation (CMS/HCC) 3. Mixed hyperlipidemia 4. Ischemic cardiomyopathy 5. Primary hypertension 6. H/O non-ST elevation myocardial infarction (NSTEMI) 7. Coronary artery disease involving [place] coronary artery of [place] heart without angina pectoris 8. Class 3 severe obesity due to excess calories with body mass index (BMI) of 40.0 to 44.9 in adult, unspecified whether serious comorbidity present ([facility]) Scribe Attestation By signing my name below, IJuanita LPN , Scribe attest that this documentation has been prepared under the direction and in the presence of Johnathan Drake DO. documented in this encounter [facility] Work Phone: Instructions Patient Instructions Note Date & Type Note Facility Instructions Juanita Mercado LPN - 06/06/2023 10:50 AM EST Please bring all medicines, vitamins, and herbal supplements with you when you come to the office. Prescriptions will not be filled unless you are compliant with your follow up appointments or have a follow up appointment scheduled as per instruction of your physician. Refills should be requested at the time of your visit. documented in this encounter [facility] Work Phone: Summary Purpose Family History No Family History Records FoundUnknown Family Member Name Dates Details Heart problem: Mother Status:Active Family history of hypertensi on: Mother(V17.49, Z82.49) Status:Active Family history of diabetes m ellitus: Mother(V18.0, Z83.3) Status:Active Parkinson disease, symptomat ic: Father Status:Active Unknown Family Member Name Dates Details Heart problem: Mother Status:Active Family history of hypertensi on: Mother(V17.49, Z82.49) Status:Active Family history of diabetes m ellitus: Mother(V18.0, Z83.3) Status:Active Parkinson disease, symptomat ic: Father Status:Active Unknown Family Member Name Dates Details Heart problem: Mother Status:Active Family history of hypertensi on: Mother(V17.49, Z82.49) Status:Active Family history of diabetes m ellitus: Mother(V18.0, Z83.3) Status:Active Parkinson disease, symptomat ic: Father Status:Active Unknown Family Member Name Dates Details Heart problem: Mother Status:Active Family history of hypertensi on: Mother(V17.49, Z82.49) Status:Active Family history of diabetes m ellitus: Mother(V18.0, Z83.3) Status:Active Parkinson disease, symptomat ic: Father Status:Active Unknown Family Member Name Dates Details Heart problem: Mother Status:Active Family history of hypertensi on: Mother(V17.49, Z82.49) Status:Active Family history of diabetes m ellitus: Mother(V18.0, Z83.3) Status:Active Parkinson disease, symptomat ic: Father Status:Active Unknown Family Member Name Dates Details Heart problem: Mother Status:Active Family history of hypertensi on: Mother(V17.49, Z82.49) Status:Active Family history of diabetes m ellitus: Mother(V18.0, Z83.3) Status:Active Parkinson disease, symptomat ic: Father Status:Active Advance Directives No Advanced Directives Records FoundNo Advanced Directives Records FoundNo Advanced Directives Records FoundNo Advanced Directives Records FoundNo Advanced Directives Records FoundNo Advanced Directives Records FoundNo Advanced Directives Records Found Chief Complaint * I am feeling better since I got out of hospital * LINO PEÑA is being seen for atrial fibrillation, coronary artery disease, cardiomyopathy and dyslipidemia. * I am feeling better since I got out of hospital * LINO PEÑA is being seen for atrial fibrillation, coronary artery disease, cardiomyopathy and dyslipidemia. * LINO PEÑA is being seen for a 6 month follow-up of. * Patient is a 70-year-old gentleman who returns for 6-month follow-up he is doing well he has no cardiovascular complaints or symptoms. He continues working 5 days weekly at [employer]. * He sustained non-ST elevation TX with two-vessel revascularization of the LAD and RCA in July 2020 with mild to moderate left ventricular dysfunction with no subsequent ischemic events or heart failure events. He remains on guideline directed medical therapies as noted * He is a non-smoker, he does have evidence of paroxysmal atrial fibrillation, couplets, bigeminal PVCs which are all asymptomatic and remains on combination of warfarin and clopidogrel with no bleeding or thromboembolic events. * Recommendations: Continue current therapies, counseling on dietary discretion, weight loss and exercise and aerobic training, follow-up in 6 months with appropriate laboratories * LINO PEÑA is being seen for an annual follow-up of Overdue. * Patient is 71-year-old gentleman returns for follow-up, he unfortunately has discontinued all of his medications. He sustained high risk non-ST elevation TX in July 2020, with high risk two-vessel coronary intervention of the proximal through mid LAD and proximal RCA and mid PLV branch x4 BARBARA total. Left ventricular function is 45 to 50% when measured immediately after TX. * He has paroxysmal A. fib, he has been off his Eliquis as well. He has no complaints of angina, palpitations, syncope, heart failure, and nitroglycerin usage or hospitalizations. * We have implored upon him the necessity of compliance with medical therapy, dietary discretion, weight loss and exercise for over 10 minutes today. Will reinitiate losartan 25 mg daily Eliquis 5 twice daily metoprolol 12.5 twice daily, atorvastatin 80 daily and follow-up with nurse practitioner in 6 months and myself again thereafterwards. Notably, there is some mild cognitive impairment at leastby my impression. * Routine f/u: 'doing fine' * LINO PEÑA is being seen for a 6 month follow-up of atrial fibrillation, coronary artery disease,dyslipidemia and hypertension. * Patient presents to the office ambulatory with steady gait. Last evaluated in clinic Dr. Drake April 2022. At that time, patient presented off all cardiovascular medication and losartan, Eliquis, Lopressor and Lipitor were resumed. * Patient reports a August 2022 hospitalization due to pneumonia and COPD, was not followed by [facility] cardiology. He reports being told he was in atrial fibrillation throughout the hospitalization and wasdischarged 'when heart rates were better'. There were no changes to cardiovascular regimen at time of discharge. * Patient continues to work full-time at [employer]. He denies any type of routine exercise. He had no complaints ambulating in from the parking lot. He is unable to recall his prior PCI symptoms. He denies any change in exercise capacity or functional tolerance. He reports very rare palpitations. Reports compliance with treatment. * At this time, patient with chronic atrial fibrillation with treatment strategy of rate control and anticoagulation. Heart rate is optimal on current dose of Lopressor. * Overall patient is pleased with current state of cardiovascular health. At this time there are no indications for additional cardiovascular testing or need for medication changes. Reason for Referral Specialty Diagnoses / Procedures Referred By Contac t Referred To Contact Diagnoses Persistent atrial fibrillation (CMS/HCC) Procedures ECG 12 Lead Johnathan Drake, DO [address] [facility] [address] [place] [address] Referral ID Status Reason Start Date Expiration Date V isits Requested Visits Authorized [id number] Pending Review 06/06/2023 06/05/2024 1 1 Specialty Diagnoses / Procedures Referred By Contac t Referred To Contact Cardiology Diagnoses Status post insertion of drug eluting coronary artery stent Persistent atrial fibrillation (CMS/HCC) Mixed hyperlipidemia Ischemic cardiomyopathy Primary hypertension Coronary artery disease involving [place] coronary artery of [place] heart without angina pectoris Procedures Follow Up In Cardiology Johnathan Drake Claudio, [address] [facility] [address] [place] [address] Johnathan Drake, DO [address] [facility] [address] [place] [address] Referral ID Status Reason Start Date Expiration Date V isits Requested Visits Authorized [id number] Authorized 06/06/2023 06/05/2024 1 1 Additional Source Comments (unrecognized sect ion and content) No Status Records FoundNo Status Records FoundNo Status Records FoundNo Status Records FoundNo Status Records FoundNo Status Records FoundNo Status Records Found INFORMATION SOURCE (unrecogn ized section and content) DATE CREATED AUTHOR 11/30/2020 Sarthak Ugarte [facility] DATE CREATED AUTHOR AUTHOR'S ORGANIZ ATION 03/28/2021 [facility] DATE CREATED AUTHOR AUTHOR'S ORGANIZ ATION 08/08/2021 [facility] DATE CREATED AUTHOR AUTHOR'S ORGANIZ ATION 09/29/2022 [facility] DATE CREATED AUTHOR AUTHOR'S ORGANIZ ATION 12/06/2022 [facility] DATE CREATED AUTHOR AUTHOR'S ORGANIZ ATION 12/06/2022 [facility] DATE CREATED AUTHOR AUTHOR'S ORGANIZ ATION 06/09/2023 [facility] Reason for Visit (unrecogniz ed section and content) Reason Comments Follow-up 6m Specialty Diagnoses / Procedures Referred By Brendan t Referred To Contact Diagnoses Persistent atrial fibrillation (CMS/HCC) Procedures ECG 12 Lead Johnathan Drake DO [address] 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 This clinical summary was aggregated from multiple sources. Caution should be exercised in using it in the provision of clinical care. This summary normalizes information from multiple sources, and as a consequence, information in this document may materially change the coding, format and clinical context of patient data. In addition, data may be omitted in some cases. CLINICAL DECISIONS SHOULD BE BASED ON THE PRIMARY CLINICAL RECORDS. [facility]. provides no warranty or guarantee of the accuracy or completeness of information in this document.
[2023-12-04 10:47] LABS: Basophils Absolute Auto 0.1 10^3/uL (0.0-0.1); Eosinophils Absolute Auto 0.6 10^3/uL (0.0-0.7); Eosinophils Percent Auto 6.3 % (0.9-7.0); Hematocrit 42.5 % (42.0-54.0); Immature Granulocytes Abs Auto 0.04 10^3/uL (0.00-0.03); Immature Granulocytes Pct Auto 0.4 % (0.0-0.5); Lymphocytes Absolute Auto 1.9 10^3/uL (1.2-3.8); Lymphocytes Percent Auto 21.5 % (20.5-60.0); Mean Corpuscular HGB Conc 30.6 g/dL (29.9-35.2); Mean Corpuscular Hemoglobin 25.1 pg (25.9-34.0); Mean Corpuscular Volume 82.2 fL (80.0-94.0); Mean Platelet Volume 9.4 fL (9.5-13.5); Monocytes Absolute Auto 0.7 10^3/uL (0.3-0.8); Monocytes Percent Auto 7.7 % (1.7-12.0); Neutrophils Absolute Auto 5.7 10^3/uL (1.4-6.5); Neutrophils Percent Auto 63.1 % (43.0-75.0); Platelet Count 255 10^3/uL (150-450); Red Blood Count 5.17 10^6/uL (4.70-6.10); Red Cell Distribution Width 14.2 % (11.0-15.0)
[2023-12-04 11:40] LABS: Alanine Aminotransferase 21 U/L (16-63); Albumin Globulin Ratio 0.8; Albumin Level 3.5 g/dL (3.4-5.0); Alkaline Phosphatase 83 U/L (46-116); Anion Gap 13.4; Aspartate Amino Transferase 22 U/L (15-37); BUN Creatinine Ratio 16.5; Bilirubin Total 1.2 mg/dL (0.2-1.0); Calcium 8.8 mg/dL (8.5-10.1); Carbon Dioxide 28.1 mmol/L (21.0-32.0); Chloride 103 mmol/L (98-107); Chol HDL Ratio 4.7; Cholesterol 184 mg/dL (<=200); Estimated GFR (African America >60 (>=60); Estimated GFR (Non-African Ame >60 (>=60); Free T3 2.53 pg/mL (2.18-3.98); Globulin 4.2 g/dL; Glucose 94 mg/dL (74-106); HDL Cholesterol 39 mg/dL (40-60); Potassium 4.5 mmol/L (3.5-5.1); Sodium 140 mmol/L (136-145); Thyroid Stimulating Hormone 1.164 uIU/mL (0.358-3.740); Total Protein 7.7 g/dL (6.4-8.2); Triglycerides 64 mg/dL (<=150); VLDL CHOLESTEROL 12.8 mg/dL
[2023-12-04 12:44] LABS: Prostate Specific Antigen Scrn 0.51 ng/mL (<=4.00)
[2023-12-04 14:39] LABS: Estimated Average Glucose 137 mg/dL; Glycohemoglobin A1C 6.4 % (4.5-6.2)
[2023-12-05 10:13] LABS: Insulin 19.2 uIU/mL (2.6-24.9)
== END 2023-12-04 10:00 | disposition home or self-care (01) ==
LOC: LAB 10:01
PROVIDERS: PCP Family Medicine; Visit Provider Family Medicine
DX: J44.1 Chronic obstructive pulmonary disease with (acute) exacerbation (principal); I25.5 Ischemic cardiomyopathy; I10 Essential (primary) hypertension; I48.0 Paroxysmal atrial fibrillation; R73.09 Other abnormal glucose; Z12.5 Encounter for screening for malignant neoplasm of prostate
CPT/HCPCS: 36415; 80053; 80061; 83036; 83525; 83880; 84436; 84443; 84481; 85025; G0103

== ENCOUNTER 2024-01-08 12:06 | Inpatient (IN) | payer MEDICARE, SELFPAY ==
[2024-01-08] VITALS (12 sets, daily range): BP systolic 129–154; BP diastolic 77–96; PULSE 97–99; TEMP 36.6–36.7; O2SAT 93–99; BMI 31.3; BMI 42.9
--- NOTE | 2024-01-08 12:24 | CT_ITS ---
[address] [address] Patient Name: JOSE PETERS MRN: [id number] date: 1950 Sex: M Assigned Patient Location: ER Current Patient Location: ER Accession/Order Number: [id number] Exam Date: 01/08/2024 13:35 Report Date: 01/08/2024 14:12 At the request of: JING VALERIO Procedure: CT abdomen pelvis w con EXAMINATION: CT abdomen pelvis w con HISTORY: umbilical fluctuating swelling COMPARISON: 11/24/2022 TECHNIQUE: CT images were created with IV contrast. Axial, Coronal, and Sagittal images. Dose reduction techniques were achieved by using automated exposure control and/or adjustment of mA and/or kV according to patient size and/or use of iterative reconstruction technique. FINDINGS: LUNG BASES: Prominent heart size with heavy coronary atherosclerosis LIVER: Hyperdensity right hepatic dome axial image 13, nonspecific BILIARY: Gallbladder wall thickening measuring up to 4 mm with a small amount of pericholecystic fluid along the gallbladder fundus. Layering hyperdensity the gallbladder antrum, cholelithiasis. PANCREAS: No lesion, fluid collection, ductal dilatation, or atrophy. SPLEEN: No enlargement or focal lesion. ADRENALS: Stable 4.3 cm right adrenal mass with fat and calcification. Stable 1.1 cm left adrenal nodule KIDNEYS: Nonobstructing left nephrolithiasis. Left extrarenal pelvis. No obstructive uropathy BOWEL/MESENTERY: Nonobstructive bowel gas pattern. Normal appendix. AORTA/VASCULAR: No aortic aneurysm. Moderate calcific atherosclerosis RETROPERITONEUM: No mass or adenopathy. LYMPH NODES: No adenopathy. URINARY BLADDER: No visible focal wall thickening, lesion, or calculus. PELVIC ORGANS: Normal prostate size with central calcifications ABDOMINAL WALL: 10.1 cm ventral abdominal hernia containing mesenteric fat as well as transverse colon through a narrow neck measuring 3.3 cm. No stranding within the hernia. There is soft tissue swelling along the ventral abdominal wall with subcutaneous stranding contained to the subcutaneous fat not extending into the mesenteric fat BONES: No bony lesion or fracture. OTHER: Negative. CT/CT abdomen pelvis w con IMPRESSION: Anterior periumbilical skin thickening and subcutaneous fat stranding suggesting a cellulitis with no focal abscess 10 cm umbilical hernia containing transverse colon through a narrow 3 cm neck without evidence of strangulation or bowel obstruction Geographic enhancing right hepatic dome, nonspecific Cholecystitis with underlying cholelithiasis, this appears slightly improved from the prior exam Electronically authenticated by: SAROJ DOAN Date: 01/08/2024 14:12
[2024-01-08 12:51] LABS: Basophils Absolute Auto 0.1 10^3/uL (0.0-0.1); Basophils Percent Auto 0.9 % (0.2-2.0); Eosinophils Absolute Auto 0.8 10^3/uL (0.0-0.7); Hematocrit 43.1 % (42.0-54.0); Hemoglobin 13.4 g/dL (14.0-18.0); Immature Granulocytes Abs Auto 0.05 10^3/uL (0.00-0.03); Immature Granulocytes Pct Auto 0.6 % (0.0-0.5); Lymphocytes Absolute Auto 1.7 10^3/uL (1.2-3.8); Lymphocytes Percent Auto 18.6 % (20.5-60.0); Mean Corpuscular HGB Conc 31.1 g/dL (29.9-35.2); Mean Corpuscular Hemoglobin 25.8 pg (25.9-34.0); Monocytes Absolute Auto 0.7 10^3/uL (0.3-0.8); Monocytes Percent Auto 8.1 % (1.7-12.0); Neutrophils Absolute Auto 5.7 10^3/uL (1.4-6.5); Neutrophils Percent Auto 62.8 % (43.0-75.0); Platelet Count 254 10^3/uL (150-450); Red Blood Count 5.19 10^6/uL (4.70-6.10)
[2024-01-08 13:18] LABS: Alanine Aminotransferase 25 U/L (16-63); Albumin Globulin Ratio 0.8; Albumin Level 3.3 g/dL (3.4-5.0); Alkaline Phosphatase 85 U/L (46-116); Anion Gap 14.1; Aspartate Amino Transferase 27 U/L (15-37); Bilirubin Total 0.9 mg/dL (0.2-1.0); Calcium 8.7 mg/dL (8.5-10.1); Chloride 105 mmol/L (98-107); Estimated GFR (African America >60 (>=60); Estimated GFR (Non-African Ame >60 (>=60); Glucose 82 mg/dL (74-106); Potassium 4.1 mmol/L (3.5-5.1); Sodium 141 mmol/L (136-145); Total Protein 7.3 g/dL (6.4-8.2)
[2024-01-08 13:21] LABS: Lactate/Lactic Acid 1.2 mmol/L (0.4-2.0)
[2024-01-08 14:31] LABS: Bilirubin Urine NEGATIVE (NEGATIVE); Blood Urine SMALL (NEGATIVE); Clarity Urine CLOUDY (CLEAR); Color Urine LT. YELLOW (YELLOW); Glucose Urine UA NEGATIVE (NEGATIVE); Ketones Urine NEGATIVE (NEGATIVE); Leukocyte Esterase Urine LARGE (NEGATIVE); Nitrite Urine POSITIVE (NEGATIVE); Protein Urine NEGATIVE (NEG/TRACE); Urobilinogen Urine 0.2 EU/dL (0.2-1.0)
[2024-01-08] MEDS: PIPERACILLIN SODIUM/TAZOBACTAM 4.5 GM in 0.9 % SODIUM CHLORIDE 50 ML IV (14:35)
[2024-01-08 14:54] LABS: Bacteria Urine LARGE #/HPF (NONE SEEN); Cast Seen? NONE SEEN #/LPF (NONE SEEN); Crystals Seen? None Seen #/HPF (None Seen); Mucus Urine NONE SEEN (NONE SEEN); RBC Urine 0-2 #/HPF (0-2); Squamous Epithelial Cell Urine FEW #/LPF (NONE/RARE); Urine Microscopic Indicated YES; WBC Urine >100 #/HPF (NONE SEEN)
[2024-01-08 14:55] LABS: Urine Culture Indicated YES
--- NOTE | 2024-01-08 15:04 | ED.ABDPAIN1 ---
HPI - Abdominal Pain General Chief Complaint: Abdominal Pain Stated Complaint: ABNORMAL LAB VALUE/ ABDOMINAL PAIN Time Seen by Provider: 01/08/24 12:20 Source: patient Mode of arrival: walk-in Limitations: no limitations History of Present Illness HPI narrative: Patient presented to us with abdominal swelling and bulging at the umbilical area, patient does not have any abdominal pain nausea or vomiting, he noted some redness in the area as well as swelling and that why he came here after being referred by his primary care The patient have no fever or chills Related Data Previous Rx's ?Medication ?Instructions ?Recorded cephalexin 500 mg capsule 500 mg PO BID 7 days #14 caps 11/24/22 ondansetron 4 mg disintegrating 4 mg PO Q8H PRN nausea and 11/24/22 tablet vomiting 4 days #10 tabs Allergies Allergy/AdvReac Type Severity Reaction Status Date / Time No Known Drug Allergies Allergy Verified 01/08/24 12:20 Review of Systems ROS Status of ROS 10 or more systems reviewed and unremarkable except as noted in history and below PFSH PFS Medical History Social History Smoking status: Never smoker Exam Narrative Exam Narrative: Nurses notes and vital signs reviewed and patient is not hypoxic. General: Well-appearing and in no apparent distress. Skin: Warm, dry, no pallor noted. No rash. Head: Normocephalic, atraumatic. Neck: Supple, non-tender. Eye: Pupils are equal, round and EOMI. No scleral icterus. Ears, Nose, Mouth, and Throat: TM are clear, no nasal mucosal hypertrophy. Oral mucosa is moist, no posterior oropharynx erythema, uvula is mid-line Cardiovascular: Regular Rate and Rhythm without murmur, gallop or rub. Respiratory: No accessory muscle use or respiratory distress. Lungs are clear to auscultation, no wheezing, rales or rhonchi Chest Wall: no tenderness Back: No midline thoracic or lumbar vertebral tenderness. No CVA tenderness Musculoskeletal: normal ROM, no calf or popliteal tenderness, no lower extremity edema/swelling GI: Abdomen is soft, non-distended. Normal bowel sounds. There is an area of 10 cm diameter as well as bulging 10 cm from the umbilical area with redness surrounding the area no induration but mild edema no surrounding induration and no tenderness on palpation No masses appreciated. No tenderness to palpation. No rebound, guarding, or rigidity noted. Neurological: A&O x4. No cranial nerve dysfunction observed. No truncal ataxia. Moves all extremities. Sensation intact. Psychiatric: Cooperative and interactive. Normal mood and affect. Constitutional Vital Signs, click to edit/add: Last Vital Signs Temp 97.8 F 01/08/24 12:16 Pulse 99 H 01/08/24 12:16 Resp 22 H 01/08/24 12:16 BP 141/96 H 01/08/24 12:16 Pulse Ox 98 01/08/24 12:16 O2 Del Method Room Air 01/08/24 12:16 Course Vital Signs Vital signs: Vital Signs Temperature 97.8 F 01/08/24 12:16 Pulse Rate 99 H 01/08/24 12:16 Respiratory Rate 22 H 01/08/24 12:16 Blood Pressure 141/96 H 01/08/24 12:16 Pulse Oximetry 98 01/08/24 12:16 Oxygen Delivery Method Room Air 01/08/24 12:16 Temperature 97.8 F 01/08/24 12:16 Pulse Rate 99 H 01/08/24 12:16 Respiratory Rate 22 H 01/08/24 12:16 Blood Pressure 141/96 H 01/08/24 12:16 Pulse Oximetry 98 01/08/24 12:16 Oxygen Delivery Method Room Air 01/08/24 12:16 MDM - Abdominal Pain MDM Narrative Medical decision making narrative: The patient CBC and chemistry showed no acute pathology The patient lactic acid is negative Blood culture obtained he was started on Zosyn for possible cellulitis The patient CAT scan of the abdomen pelvis shows hernia with part of the colon it which is a progression of his CAT scan from last year November when he had a CAT scan showing only fat-containing hernia The patient case was discussed with in general surgery and he recommended that the patient need to have a plan for surgery in the tertiary center I did discuss the case with who is the primary care and right now will admit the patient for cellulitis management Lab Data Labs: Lab Results 01/08/24 01/08/24 Range/Units 12:37 13:47 WBC 9.0 (4.0-11.0) 10^3/uL RBC 5.19 (4.70-6.10) 10^6/uL Hgb 13.4 L (14.0-18.0) g/dL Hct 43.1 (42.0-54.0) % MCV 83.0 (80.0-94.0) fL MCH 25.8 L (25.9-34.0) pg MCHC 31.1 (29.9-35.2) g/dL RDW 14.0 (11.0-15.0) % Plt Count 254 (150-450) 10^3/uL MPV 9.0 L (9.5-13.5) fL Neut % (Auto) 62.8 (43.0-75.0) % Lymph % (Auto) 18.6 L (20.5-60.0) % [place] % (Auto) 8.1 (1.7-12.0) % Eos % (Auto) 9.0 H (0.9-7.0) % Baso % (Auto) 0.9 (0.2-2.0) % Neut # (Auto) 5.7 (1.4-6.5) 10^3/uL Lymph # (Auto) 1.7 (1.2-3.8) 10^3/uL [place] # (Auto) 0.7 (0.3-0.8) 10^3/uL Eos # (Auto) 0.8 H (0.0-0.7) 10^3/uL Baso # (Auto) 0.1 (0.0-0.1) 10^3/uL Abs Immat Gran (auto) 0.05 H (0.00-0.03) 10^3/uL Imm/Tot Granulo (auto) 0.6 H (0.0-0.5) % Sodium 141 (136-145) mmol/L Potassium 4.1 (3.5-5.1) mmol/L Chloride 105 (98-107) mmol/L Carbon Dioxide 26.0 (21.0-32.0) mmol/L Anion Gap 14.1 BUN 19.0 H (7.0-18.0) mg/dL Creatinine 1.00 (0.70-1.30) mg/dL Est GFR ( Amer) >60 (>=60) Est GFR (Non-Af Amer) >60 (>=60) BUN/Creatinine Ratio 19.0 Glucose 82 (74-106) mg/dL Lactate 1.2 (0.4-2.0) mmol/L Calcium 8.7 (8.5-10.1) mg/dL Total Bilirubin 0.9 (0.2-1.0) mg/dL AST 27 (15-37) U/L ALT 25 (16-63) U/L Alkaline Phosphatase 85 (46-116) U/L Total Protein 7.3 (6.4-8.2) g/dL Albumin 3.3 L (3.4-5.0) g/dL Globulin 4.0 g/dL Albumin/Globulin Ratio 0.8 Urine Color Lt. yellow (YELLOW) Urine Clarity Cloudy A (CLEAR) Urine pH 6.0 (5.0-9.0) Ur Specific [place] 1.020 (1.005-1.025) Urine Protein Negative (NEG/TRACE) mg/dL Urine Glucose (UA) Negative (NEGATIVE) mg/dL Urine Ketones Negative (NEGATIVE) mg/dL Urine Occult Blood Small A (NEGATIVE) Urine Nitrite Positive A (NEGATIVE) Urine Bilirubin Negative (NEGATIVE) Urine Urobilinogen 0.2 (0.2-1.0) EU/dL Ur Leukocyte Esterase Large A (NEGATIVE) Urine RBC 0-2 (0-2) #/HPF Urine WBC >100 A (NONE SEEN) #/HPF Ur Squamous Epith Cells Few A (NONE/RARE) #/LPF Urine Crystals None seen (None Seen) #/HPF Urine Bacteria Large A (NONE SEEN) #/HPF Urine Casts None seen (NONE SEEN) #/LPF Urine Mucus None seen (NONE SEEN) Ur Culture Indicated? Yes Discharge Plan Discharge Chief Complaint: Abdominal Pain Clinical Impression: Abdominal wall cellulitis Hernia, umbilical Qualifiers: Obstruction and gangrene presence: without obstruction or gangrene Qualified Code(s): K42.9 - Umbilical hernia without obstruction or gangrene Patient Disposition: Admitted As Inpatient Time of Disposition Decision: 15:09
--- NOTE | 2024-01-08 15:06 | P.HP_ITS ---
HPI H&P: HPI History of Present Illness Chief complaint: ABNORMAL LAB VALUE/ ABDOMINAL PAIN CELLULITIS Narrative: Patient was seen and evaluated in the office with increasing swelling over his previously known large umbilical hernia. Does not describe pain just darted getting a little weepy. In the office of the hernia had a dusky appearance and definitely repeat. Was recommended to be evaluated in the emergency room at that point. In the ER CT scan does not show any obstruction, CT scan does show cellulitis, no abscess formation, and again the area is nontender. When I saw patient up on the medical surgical floor, he was sitting up in his chair resting comfortably without complaint. Opioid HPI Opioid Management Most Recent Pain and Opioid Data: Last Pain Scale 0 01/08/24 16:50 Last Pain Assessment 01/08/24 17:42 Last ORT Total Score 0 01/08/24 15:54 Last ORT Risk Category Low Risk 01/08/24 15:54 Review of Systems ROS Status of ROS 10 or more systems reviewed and unremark able except as noted in history and below PFSH PFSH Medical History Family History (Updated 01/08/24 @ 16:01 by Aysha De Los Santos LPN) Mother Family history of CHF (congestive heart failure) Family history of diabetes mellitus Family history of hypertension Family history of myocardial infarction Social History (Updated 01/08/24 @ 16:03 by Aysha De Los Santos LPN) Within the past year, how often did you have a drink containing alcohol: never Within the past year, how many standard drinks containing alcohol did you have on a typical day: 1 or 2 Within the past year, how often did you have six or more drinks on one occasion: never Total score: 0 Score interpretation: A score less than 4 is consistent with normal alcohol consumption. Smoking status: Never smoker Non-prescribed substance use: denies use Previous occupational history: [employer] currently Highest level of school completed/degree received: high school graduate Do you want help with school or training: No Are you now , , , , never or living with a partner: In a typical week, how many times do you talk on the telephone with family, friends, or neighbors: 3 or more times per week How often do you get together with friends or relatives: 3 or more times per week How often do you attend buddhism or yazdanism services: never Do you belong to any clubs or organizations such as buddhism groups unions, fraternal or athletic groups, or school groups: no Total score: 1 Score interpretation: A score of less than or equal to 1 indicates the most socially isolated. Little interest or pleasure in doing things: not at all Feeling down, depressed, or hopeless: not at all Feel stressed/tense/nervous/anxious/difficulty sleeping: not at all Due to disability, difficulty making decisions: No Do you think of yourself as: straight/heterosexual Gender Identity: male Meds Home Medications and Allergies Home Medications ?Medication ?Instructions ?Recorded ?Confirmed ?Type metoprolol tartrate 25 mg tablet 25 mg PO BID 01/08/24 01/08/24 History Allergies Allergy/AdvReac Type Severity Reaction Status Date / Time No Known Drug Allergies Allergy Verified 01/08/24 12:20 Exam Constitutional Vital Signs, click to edit/add: Last Vital Signs Temp 97.8 F 01/08/24 12:16 Pulse 99 H 01/08/24 12:16 Resp 22 H 01/08/24 12:16 BP 141/96 H 01/08/24 12:16 Pulse Ox 98 01/08/24 12:16 O2 Del Method Room Air 01/08/24 12:16 Documenting provider has reviewed patient's vital signs: yes Common normals: no apparent distress Chest Common normals: inspection of chest normal Respiratory Common normals: normal respiratory effort and no retractions Cardio Common normals: regular rate, regular rhythm and no murmurs GI Common normals: negative for Normal to inspection, nondistended, normoactive bowel sounds present (Larger than a softball umbilical hernia with duskiness and erythema) Palpation: soft; non-tender Results Labs Labs: Short CBC 01/08/24 Range/Units 12:37 WBC 9.0 (4.0-11.0) 10^3/uL Hgb 13.4 L (14.0-18.0) g/dL Hct 43.1 (42.0-54.0) % Plt Count 254 (150-450) 10^3/uL BMP 01/08/24 12:37 Sodium 141 Potassium 4.1 Chloride 105 Carbon Dioxide 26.0 BUN 19.0 H Creatinine 1.00 Glucose 82 Calcium 8.7 Liver Function 01/08/24 Range/Units 12:37 Total Bilirubin 0.9 (0.2-1.0) mg/dL AST 27 (15-37) U/L ALT 25 (16-63) U/L Alkaline Phosphatase 85 (46-116) U/L Albumin 3.3 L (3.4-5.0) g/dL Urine 01/08/24 Range/Units 13:47 Urine Color Lt. yellow (YELLOW) Urine Clarity Cloudy A (CLEAR) Urine pH 6.0 (5.0-9.0) Ur Specific [place] 1.020 (1.005-1.025) Urine Protein Negative (NEG/TRACE) mg/dL Urine Glucose (UA) Negative (NEGATIVE) mg/dL Assessment and Plan Assessment and Plan (1) Abdominal wall cellulitis: Plan Patient was abdominal wall hernia progressed to abdominal wall cellulitis. No abscess formation. Risk of spreading along the abdominal wall is high, patient high risk for sepsis. Placed patient on IV antibiotics, blood cultures pending, low level trigger for transfer if cellulitis spreading. Hypertension-continue with home medications Admission status: Patient with cellulitis of his abdominal wall over top of where his hernia is located. High risk for progression of cellulitis along the abdominal wall placing him at high risk for sepsis. Blood cultures pending. Medically necessary treatment will definitely span 2 midnights. Inpatient status.
[2024-01-08] MEDS: LEVOFLOXACIN IN DEXTROSE 5 % 750 MG/150 ML IV.SOLN 100 MG IV (16:52)
[2024-01-08] MEDS: PIPERACILLIN SODIUM/TAZOBACTAM 3.375 GM in 0.9 % SODIUM CHLORIDE 50 ML IV (21:53)
[2024-01-09] VITALS (8 sets, daily range): BP systolic 127–147; BP diastolic 67–85; PULSE 77–100; TEMP 36.4–36.6; O2SAT 94–98
[2024-01-09] MEDS: PIPERACILLIN SODIUM/TAZOBACTAM 3.375 GM in 0.9 % SODIUM CHLORIDE 50 ML IV ×3 (05:10→21:07)
[2024-01-09 05:40] LABS: Basophils Absolute Auto 0.1 10^3/uL (0.0-0.1); Eosinophils Absolute Auto 0.8 10^3/uL (0.0-0.7); Eosinophils Percent Auto 9.4 % (0.9-7.0); Hematocrit 41.7 % (42.0-54.0); Hemoglobin 13.1 g/dL (14.0-18.0); Immature Granulocytes Abs Auto 0.04 10^3/uL (0.00-0.03); Immature Granulocytes Pct Auto 0.5 % (0.0-0.5); Lymphocytes Absolute Auto 1.3 10^3/uL (1.2-3.8); Lymphocytes Percent Auto 15.2 % (20.5-60.0); Mean Corpuscular HGB Conc 31.4 g/dL (29.9-35.2); Mean Corpuscular Hemoglobin 26.1 pg (25.9-34.0); Mean Corpuscular Volume 83.2 fL (80.0-94.0); Mean Platelet Volume 8.9 fL (9.5-13.5); Monocytes Absolute Auto 0.6 10^3/uL (0.3-0.8); Monocytes Percent Auto 7.8 % (1.7-12.0); Neutrophils Absolute Auto 5.5 10^3/uL (1.4-6.5); Neutrophils Percent Auto 66.1 % (43.0-75.0); Platelet Count 233 10^3/uL (150-450); Red Blood Count 5.01 10^6/uL (4.70-6.10); Red Cell Distribution Width 14.1 % (11.0-15.0); White Blood Count 8.2 10^3/uL (4.0-11.0)
[2024-01-09 05:54] LABS: Alanine Aminotransferase 23 U/L (16-63); Albumin Globulin Ratio 0.8; Alkaline Phosphatase 75 U/L (46-116); Anion Gap 12.5; Aspartate Amino Transferase 24 U/L (15-37); BUN Creatinine Ratio 16.3; Bilirubin Total 1.3 mg/dL (0.2-1.0); Calcium 8.4 mg/dL (8.5-10.1); Carbon Dioxide 27.5 mmol/L (21.0-32.0); Chloride 103 mmol/L (98-107); Estimated GFR (African America >60 (>=60); Estimated GFR (Non-African Ame >60 (>=60); Globulin 3.8 g/dL; Glucose 106 mg/dL (74-106); Sodium 139 mmol/L (136-145); Total Protein 6.8 g/dL (6.4-8.2)
--- NOTE | 2024-01-09 08:37 | CM.NOTE ---
Rounds made with Dr. Herrera. Dr. Herrera reviewed plan of care with Mr. Blander. Awaiting culture results (wound, urine).
--- NOTE | 2024-01-09 08:55 | P.PN_ITS ---
Progress Note: Subjective Subjective Interval history: No complaints this morning, abdominal wall becoming more itchy Exam Constitutional Vital Signs, click to edit/add: Last Vital Signs Temp 97.5 F L 01/09/24 07:38 Pulse 90 01/09/24 07:38 Resp 16 01/09/24 07:38 BP 145/85 H 01/09/24 07:38 Pulse Ox 96 01/09/24 07:38 O2 Del Method Room Air 01/09/24 07:38 Documenting provider has reviewed patient's vital signs: yes Common normals: no apparent distress Chest Common normals: inspection of chest normal Respiratory Common normals: normal respiratory effort and no retractions Cardio Common normals: regular rate, regular rhythm and no murmurs GI Common normals: negative for Normal to inspection, nondistended, normoactive bowel sounds present (Erythematous so far stable, not progressed outside the line, still dusky) Palpation: soft; non-tender Progress Note: Objective Labs Labs: Short CBC 01/08/24 01/09/24 Range/Units 12:37 05:16 WBC 9.0 8.2 (4.0-11.0) 10^3/uL Hgb 13.4 L 13.1 L (14.0-18.0) g/dL Hct 43.1 41.7 L (42.0-54.0) % Plt Count 254 233 (150-450) 10^3/uL BMP 01/08/24 01/09/24 12:37 05:16 Sodium 141 139 Potassium 4.1 4.0 Chloride 105 103 Carbon Dioxide 26.0 27.5 BUN 19.0 H 17.0 Creatinine 1.00 1.04 Glucose 82 106 Calcium 8.7 8.4 L Liver Function 01/08/24 01/09/24 Range/Units 12:37 05:16 Total Bilirubin 0.9 1.3 H (0.2-1.0) mg/dL AST 27 24 (15-37) U/L ALT 25 23 (16-63) U/L Alkaline Phosphatase 85 75 (46-116) U/L Albumin 3.3 L 3.0 L (3.4-5.0) g/dL Urine 01/08/24 Range/Units 13:47 Urine Color Lt. yellow (YELLOW) Urine Clarity Cloudy A (CLEAR) Urine pH 6.0 (5.0-9.0) Ur Specific [place] 1.020 (1.005-1.025) Urine Protein Negative (NEG/TRACE) mg/dL Urine Glucose (UA) Negative (NEGATIVE) mg/dL Progress Note: A&P Assessment and Plan (1) Abdominal wall cellulitis: Plan Admission findings: Sinus tachycardia, respiratory distress, uncontrolled hypertension patient was abdominal wall hernia progressed to abdominal wall cellulitis. No abscess on CT scan. Overall does appear improved today. No progression on current IV antibiotics. Needs to maintain these as he is at high risk for progression to abdominal wall progressive cellulitis and gangrene. Hypertension-continue with home medications Admission status: Patient with cellulitis of his abdominal wall over top of where his hernia is located. High risk for progression of cellulitis along the abdominal wall placing him at high risk for sepsis. Blood cultures pending. Medically necessary treatment will definitely span 2 midnights. Inpatient status. Possible discharge tomorrow but more likely the day after based on the potential severity of his overall illness ?
[2024-01-09] MEDS: METOPROLOL TARTRATE 25 MG TABLET PO ×2 (09:13→21:07)
--- NOTE | 2024-01-09 11:06 | SWNOTE1 ---
SW met with pt to discuss dc needs. Pt lives at home alone. He does have friends and family in the area that he can if he needs any assistance. Pt does still work at [employer] ([employer]) and he does still drive. Pt is independent with all ADL's and does not use any DME. Pt plans on returning home at discharge and has no discharge concerns/needs. SW to follow as needed. Important Message from Medicare reviewed and discussed with patient. Pt. verbalized understanding and signed the form. Original given to patient and copy placed in patient?s chart.
[2024-01-09] MEDS: LEVOFLOXACIN IN DEXTROSE 5 % 750 MG/150 ML IV.SOLN 100 MG IV (17:15)
[2024-01-10] VITALS: BP 108/70; PULSE 63; TEMP 36.6; O2SAT 96
[2024-01-10 04:00] VITALS: BP 113/72; PULSE 88; TEMP 36.4; O2SAT 95
[2024-01-10] MEDS: PIPERACILLIN SODIUM/TAZOBACTAM 3.375 GM in 0.9 % SODIUM CHLORIDE 50 ML IV (05:12)
[2024-01-10 05:52] LABS: Basophils Absolute Auto 0.1 10^3/uL (0.0-0.1); Basophils Percent Auto 0.7 % (0.2-2.0); Eosinophils Absolute Auto 0.9 10^3/uL (0.0-0.7); Eosinophils Percent Auto 10.7 % (0.9-7.0); Hematocrit 42.2 % (42.0-54.0); Immature Granulocytes Abs Auto 0.04 10^3/uL (0.00-0.03); Immature Granulocytes Pct Auto 0.5 % (0.0-0.5); Lymphocytes Absolute Auto 1.6 10^3/uL (1.2-3.8); Lymphocytes Percent Auto 19.6 % (20.5-60.0); Mean Corpuscular HGB Conc 30.8 g/dL (29.9-35.2); Mean Corpuscular Hemoglobin 25.3 pg (25.9-34.0); Mean Corpuscular Volume 82.3 fL (80.0-94.0); Monocytes Absolute Auto 0.7 10^3/uL (0.3-0.8); Monocytes Percent Auto 7.9 % (1.7-12.0); Neutrophils Percent Auto 60.6 % (43.0-75.0); Platelet Count 245 10^3/uL (150-450); Red Blood Count 5.13 10^6/uL (4.70-6.10); Red Cell Distribution Width 13.9 % (11.0-15.0); White Blood Count 8.3 10^3/uL (4.0-11.0)
[2024-01-10 06:19] LABS: Alanine Aminotransferase 21 U/L (16-63); Albumin Globulin Ratio 0.8; Alkaline Phosphatase 75 U/L (46-116); Aspartate Amino Transferase 21 U/L (15-37); BUN Creatinine Ratio 17.6; Calcium 8.4 mg/dL (8.5-10.1); Chloride 105 mmol/L (98-107); Estimated GFR (African America >60 (>=60); Estimated GFR (Non-African Ame >60 (>=60); Globulin 3.7 g/dL; Glucose 108 mg/dL (74-106); Sodium 139 mmol/L (136-145); Total Protein 6.7 g/dL (6.4-8.2)
[2024-01-10 07:48] VITALS: BP 136/67; PULSE 78; TEMP 36.6; O2SAT 95
[2024-01-10] MEDS: METOPROLOL TARTRATE 25 MG TABLET PO (08:26)
--- NOTE | 2024-01-10 09:36 | P.DS_ITS ---
DS: Providers Provider Date of admission: 01/08/24 15:24 Primary care physician: Fabio Herrera MD Consults: 01/08/24 14:58 Consult to Pharmacy Routine Consulting Provider: Reason for consultation: Please [place] me when Med Rec is Updated Has provider been notified: No Occupational Therapy Eval and Treat Routine Reason for consultation: Only if needed for Rehab Has provider been notified: No Physical Therapy Eval and Treat Routine Reason for consultation: Eval and Treat Has provider been notified: No DS: Diagnosis Discharge Diagnosis (1) Abdominal wall cellulitis: Plan Admission findings: Sinus tachycardia, respiratory distress, uncontrolled hypertension patient was abdominal wall hernia progressed to abdominal wall cellulitis. No abscess on CT scan. Improving at the time of discharge Hypertension-stable at the time of discharge Admission status: Patient with cellulitis of his abdominal wall over top of where his hernia is located. High risk for progression of cellulitis along the abdominal wall placing him at high risk for sepsis. Blood cultures pending. Medically necessary treatment will definitely span 2 midnights. Inpatient status. Possible discharge tomorrow but more likely the day after based on the potential severity of his overall illness ? DS: Summary Hospital Course Hospital Course: Patient was seen and evaluated in the office with increasing erythema over his very large umbilical hernia. CT scan did not show an abscess formation which was anticipated. Reviewed case with surgeon, did not feel surgery was indicated at this time for the hernia repair secondary to the infection. Patient was placed on IV antibiotics. Blood cultures obtained and so far the blood cultures are still pending but are negative. The erythema has slowly improved. Highly anticipate this was going to spread throughout his abdominal wall. White blood cell count is remained stable. With cellulitis that is not unanticipated. With his overall improvement, still having some seepage from the area but the erythema is improved from the line of demarcation, will discharge patient to home in improving condition. Medications see list. He is to see me in the office tomorrow. Will arrange for surgical evaluation as an outpatient tomorrow. Status at Discharge Overall status at discharge: patient is not back to baseline Time Spent with Patient Time attestation: Total time spent providing and/or coordinating discharge services: Time spent: greater than 30 minutes Exam Constitutional Vital Signs, click to edit/add: Last Vital Signs Temp 98 F 01/10/24 07:48 Pulse 78 01/10/24 07:48 Resp 20 01/10/24 07:48 BP 136/67 01/10/24 07:48 Pulse Ox 95 01/10/24 07:48 O2 Del Method Room Air 01/10/24 07:48 Documenting provider has reviewed patient's vital signs: yes Common normals: no apparent distress Chest Common normals: inspection of chest normal Respiratory Common normals: normal respiratory effort and no retractions Cardio Common normals: regular rate, regular rhythm and no murmurs GI Common normals: negative for Normal to inspection, nondistended, normoactive bowel sounds present (Still some slow seepage, erythema improving) Palpation: soft; non-tender DS: Data Data Completed and Pending Labs on day of discharge: Labs from last 24 hours 01/10/24 05:09 WBC 8.3 RBC 5.13 Hgb 13.0 L Hct 42.2 MCV 82.3 MCH 25.3 L MCHC 30.8 RDW 13.9 Plt Count 245 MPV 9.0 L Neut % (Auto) 60.6 Lymph % (Auto) 19.6 L [place] % (Auto) 7.9 Eos % (Auto) 10.7 H Baso % (Auto) 0.7 Neut # (Auto) 5.0 Lymph # (Auto) 1.6 [place] # (Auto) 0.7 Eos # (Auto) 0.9 H Baso # (Auto) 0.1 Abs Immat Gran (auto) 0.04 H Imm/Tot Granulo (auto) 0.5 Sodium 139 Potassium 4.0 Chloride 105 Carbon Dioxide 27.0 Anion Gap 11.0 BUN 19.0 H Creatinine 1.08 Est GFR ( Amer) >60 Est GFR (Non-Af Amer) >60 BUN/Creatinine Ratio 17.6 Glucose 108 H Calcium 8.4 L Total Bilirubin 1.0 AST 21 ALT 21 Alkaline Phosphatase 75 Total Protein 6.7 Albumin 3.0 L Globulin 3.7 Albumin/Globulin Ratio 0.8 Discharge Plan Discharge Disposition: Home, Self-Care Discharge Medications: New cefdinir 300 mg capsule 600 mg PO DAILY 10 Days Qty: 20 0RF levofloxacin 750 mg tablet 750 mg PO DAILY 10 Days Qty: 10 0RF mupirocin 2 % ointment 1 applic topical BID Qty: 50 11RF Continued metoprolol tartrate 25 mg tablet 25 mg PO BID Print Language: Barbadian Patient Instructions: Mupirocin (On the skin), Levofloxacin (By mouth), Cefdinir (By mouth) (Omnicef), Cellulitis (GEN) Forms: Portal Instructions Follow Up Appointments: January 15 @ 10am with Dr. Herrera [phone]
--- NOTE | 2024-01-10 09:49 | CM.NOTE ---
07:[address]. [address] Herrera discussed lab results and treatment plan. Plan is for discharge today after receiving IV antibiotics, to be sent home on po antibiotics & to followup with Dr. Herrera tomorrow. To followup with Dr. Gannon as outpatient. Lino verbalized understanding.
[2024-01-10 10:24] VITALS: O2SAT 99
--- NOTE | 2024-01-11 11:37 | CM.DCFOLLOWU ---
Person spoke with: patient How are you feeling? well How is your pain? none Did you understand your discharge instructions? yes Do you have any questions about your discharge instructions? no Were you given any prescriptions at discharge? yes Were you able to get your prescriptions filled? yes Do you understand how to take your medications as ordered? yes Do you have any questions about your follow up appointment and do you plan to keep your follow up appointment?no questions, follow up is today with Dr. Herrera Is there anything else that you would like to discuss? no Questions/Comments/Concerns/Other: none
== END 2024-01-10 10:47 | disposition home or self-care (01) | DRG 603 ==
LOC: ER 15:09 → MS 15:29
PROVIDERS: Admitting Provider Family Medicine; Emergency Provider Emergency Medicine; PCP Family Medicine; Visit Provider Family Medicine
DX: L03.311 Cellulitis of abdominal wall (principal); I10 Essential (primary) hypertension; K42.9 Umbilical hernia without obstruction or gangrene; R00.0 Tachycardia, unspecified; R06.03 Acute respiratory distress; B96.89 Other specified bacterial agents as the cause of diseases classified elsewhere
CPT/HCPCS: 36415; 74177; 80053; 81001; 83605; 83690; 85025; 87040; 87070; 87075; 87086; 87150; 87186; 87205; 94667; 94668; 94761; 96365; 96366; 96367; 97162; 97165; 99285; J2543; Q9967

== ENCOUNTER 2024-02-18 09:57 | Emergency (ER) | payer MEDICARE, SELFPAY ==
[2024-02-18 10:02] VITALS: BP 148/85; PULSE 97; TEMP 36.8; O2SAT 97; BMI 41.6
--- NOTE | 2024-02-18 10:24 | XR_ITS ---
The [address] [address] Patient Name: JOSE PETERS MRN: [id number] date: 1950 Sex: M Assigned Patient Location: ER Current Patient Location: ER Accession/Order Number: [id number] Exam Date: 02/18/2024 10:58 Report Date: 02/18/2024 11:30 At the request of: JING VALERIO Procedure: XR foot RT 2V PROCEDURE: XR foot RT 2V COMPARISON: None. HISTORY: swelling FINDINGS: BONES:No acute fracture or dislocation. Mild degenerative changes with marginal osteophyte formation. Mild enthesopathic spurring of the calcaneus SOFT TISSUES:Moderate dorsal soft tissue swelling EFFUSION:None visible. OTHER: Negative. XR/XR foot RT 2V IMPRESSION: Dorsal soft tissue swelling. No acute fracture Electronically authenticated by: SAROJ DOAN Date: 02/18/2024 11:30
[2024-02-18 10:37] LABS: Basophils Absolute Auto 0.1 10^3/uL (0.0-0.1); Basophils Percent Auto 0.8 % (0.2-2.0); Eosinophils Absolute Auto 0.8 10^3/uL (0.0-0.7); Eosinophils Percent Auto 9.3 % (0.9-7.0); Hematocrit 39.4 % (42.0-54.0); Hemoglobin 12.2 g/dL (14.0-18.0); Immature Granulocytes Abs Auto 0.04 10^3/uL (0.00-0.03); Immature Granulocytes Pct Auto 0.5 % (0.0-0.5); Lymphocytes Absolute Auto 1.5 10^3/uL (1.2-3.8); Lymphocytes Percent Auto 17.2 % (20.5-60.0); Mean Corpuscular Volume 80.7 fL (80.0-94.0); Mean Platelet Volume 8.7 fL (9.5-13.5); Monocytes Absolute Auto 0.7 10^3/uL (0.3-0.8); Monocytes Percent Auto 8.7 % (1.7-12.0); Neutrophils Absolute Auto 5.4 10^3/uL (1.4-6.5); Neutrophils Percent Auto 63.5 % (43.0-75.0); Platelet Count 262 10^3/uL (150-450); Red Blood Count 4.88 10^6/uL (4.70-6.10); Red Cell Distribution Width 13.9 % (11.0-15.0); White Blood Count 8.5 10^3/uL (4.0-11.0)
[2024-02-18 11:07] LABS: Lactate/Lactic Acid 1.4 mmol/L (0.4-2.0)
[2024-02-18 11:17] LABS: Alanine Aminotransferase 24 U/L (16-63); Albumin Globulin Ratio 0.8; Albumin Level 3.2 g/dL (3.4-5.0); Alkaline Phosphatase 82 U/L (46-116); Anion Gap 13.3; Aspartate Amino Transferase 28 U/L (15-37); BUN Creatinine Ratio 13.8; Calcium 9.1 mg/dL (8.5-10.1); Carbon Dioxide 27.9 mmol/L (21.0-32.0); Chloride 104 mmol/L (98-107); Estimated GFR (African America >60 (>=60); Estimated GFR (Non-African Ame >60 (>=60); Globulin 3.9 g/dL; Glucose 115 mg/dL (74-106); Potassium 4.2 mmol/L (3.5-5.1); Sodium 141 mmol/L (136-145); Total Protein 7.1 g/dL (6.4-8.2)
--- NOTE | 2024-02-18 11:46 | ED.GENADUL1 ---
HPI HPI - General Adult General Chief complaint: Skin/Abscess/Foreign Body Stated complaint: INFECTION Time Seen by Provider: 02/18/24 10:16 Source: patient Mode of arrival: walk-in Limitations: no limitations History of Present Illness HPI narrative: The patient is very well-known to us he has been evaluated before for umbilical hernia multiple times that he usually present with cellulitis, patient coming to us after he noticed some increase in the drainage from the fluid weeping from the skin of the hernia which was also his presentation last time There was no abdominal pain no nausea no vomiting no fever And no changes in bowel movement The patient also noted that he has been having some redness in the dorsum of his right foot that also over the last few days no other complaints Related Data Home Medications ?Medication ?Instructions ?Recorded ?Confirmed metoprolol tartrate 25 mg tablet 25 mg PO BID 01/08/24 02/18/24 Previous Rx's ?Medication ?Instructions ?Recorded mupirocin 2 % topical ointment 1 applic topical BID #50 grams 01/10/24 cephalexin 500 mg capsule 500 mg PO Q8H 7 days #21 caps 02/18/24 doxycycline hyclate 100 mg tablet 100 mg PO BID 10 days #20 tabs 02/18/24 Allergies Allergy/AdvReac Type Severity Reaction Status Date / Time No Known Drug Allergies Allergy Verified 01/08/24 12:20 Opioid HPI Opioid Management Most Recent Opioid Data: Last Pain Scale 0 01/09/24 07:38 Last ORT Total Score 0 01/08/24 15:54 Last ORT Risk Category Low Risk 01/08/24 15:54 Review of Systems ROS Status of ROS 10 or more systems reviewed and unremarkable except as noted in history and below [facility] Medical History Family History (Updated 01/08/24 @ 16:01 by Aysha De Los Santos LPN) Mother Family history of CHF (congestive heart failure) Family history of diabetes mellitus Family history of hypertension Family history of myocardial infarction Social History (Updated 01/08/24 @ 16:03 by Aysha De Los Santos LPN) Within the past year, how often did you have a drink containing alcohol: never Within the past year, how many standard drinks containing alcohol did you have on a typical day: 1 or 2 Within the past year, how often did you have six or more drinks on one occasion: never Total score: 0 Score interpretation: A score less than 4 is consistent with normal alcohol consumption. Smoking status: Never smoker Non-prescribed substance use: denies use Previous occupational history: [employer] currently Highest level of school completed/degree received: high school graduate Do you want help with school or training: No Are you now , , , , never or living with a partner: In a typical week, how many times do you talk on the telephone with family, friends, or neighbors: 3 or more times per week How often do you get together with friends or relatives: 3 or more times per week How often do you attend zoroastrianism or adventism services: never Do you belong to any clubs or organizations such as zoroastrianism groups unions, [employer] or athletic groups, or school groups: no Total score: 1 Score interpretation: A score of less than or equal to 1 indicates the most socially isolated. Little interest or pleasure in doing things: not at all Feeling down, depressed, or hopeless: not at all Feel stressed/tense/nervous/anxious/difficulty sleeping: not at all Due to disability, difficulty making decisions: No Do you think of yourself as: straight/heterosexual Gender Identity: male Exam Narrative Exam Narrative: Nurses notes and vital signs reviewed and patient is not hypoxic. General: Well-appearing and in no apparent distress. Skin: Warm, dry, no pallor noted. No rash. Head: Normocephalic, atraumatic. Neck: Supple, non-tender. Eye: Pupils are equal, round and EOMI. No scleral icterus. Ears, Nose, Mouth, and Throat: TM are clear, no nasal mucosal hypertrophy. Oral mucosa is moist, no posterior oropharynx erythema, uvula is mid-line Cardiovascular: Regular Rate and Rhythm without murmur, gallop or rub. Respiratory: No accessory muscle use or respiratory distress. Lungs are clear to auscultation, no wheezing, rales or rhonchi Chest Wall: no tenderness Back: No midline thoracic or lumbar vertebral tenderness. No CVA tenderness Musculoskeletal: normal ROM, no calf or popliteal tenderness the patient have a good anterior tibial pulse but he have a mild edema on the dorsum of the right foot in addition to mild redness there is no open wound and no tenderness on palpation and no induration GI: Abdomen is soft, Distended and the patient have a chronic skin changes surrounding the hernia that is almost 12 x 11 cm large and not tender there is fluid weeping from the skin due to the edema but there is no other finding of any skin induration Neurological: A&O x4. No cranial nerve dysfunction observed. No truncal ataxia. Moves all extremities. Sensation intact. Psychiatric: Cooperative and interactive. Normal mood and affect. Constitutional Vital Signs, click to edit/add: Last Vital Signs Temp 98.2 F 02/18/24 10:02 Pulse 97 H 02/18/24 10:02 Resp 20 02/18/24 10:02 BP 148/85 H 02/18/24 10:02 Pulse Ox 97 02/18/24 10:02 O2 Del Method Room Air 02/18/24 10:02 Course Vital Signs Vital signs: Vital Signs Temperature 98.2 F 02/18/24 10:02 Pulse Rate 97 H 02/18/24 10:02 Respiratory Rate 20 02/18/24 10:02 Blood Pressure 148/85 H 02/18/24 10:02 Pulse Oximetry 97 02/18/24 10:02 Oxygen Delivery Method Room Air 02/18/24 10:02 Temperature 98.2 F 02/18/24 10:02 Pulse Rate 97 H 02/18/24 10:02 Respiratory Rate 20 02/18/24 10:02 Blood Pressure 148/85 H 02/18/24 10:02 Pulse Oximetry 97 02/18/24 10:02 Oxygen Delivery Method Room Air 02/18/24 10:02 Medical Decision Making MDM Narrative Medical decision making narrative: This is a second time I see the patient for the same problem and the patient already had a plan for surgery next few weeks, the patient does not have any acute obstruction symptoms at the moment he have some chronic skin changes that could be secondary to cellulitis and will be covered with Keflex and doxycycline CBC and chemistry showed no acute pathology X-ray of the right foot shows mild edema which could be secondary to the mild cellulitis that he is having it is an area of 2 x 3 cm oval in shape that he is having at redness on the dorsum of the right juliette but there is no open wound and since the patient will be covered with doxycycline and Keflex he will monitor his improvement in his abdominal wall as well as his right foot The patient to change the abdominal pad twice a day for the next 2 days he already have a home health care nurse that we will take care of that Instruction was provided on the discharge paper for the caring nurse at home Patient was instructed about the importance of coming back in case of any progression or any new symptoms The patient is to follow up with primary care physician in next 2-3 days or to return to the emergency department should any of the signs or symptoms worsen or new symptoms develop. The patient agrees with the following Diagnosis and Treatment plan and the patient will be discharged home. Lab Data Labs: Lab Results 02/18/24 Range/Units 10:29 WBC 8.5 (4.0-11.0) 10^3/uL RBC 4.88 (4.70-6.10) 10^6/uL Hgb 12.2 L (14.0-18.0) g/dL Hct 39.4 L (42.0-54.0) % MCV 80.7 (80.0-94.0) fL MCH 25.0 L (25.9-34.0) pg MCHC 31.0 (29.9-35.2) g/dL RDW 13.9 (11.0-15.0) % Plt Count 262 (150-450) 10^3/uL MPV 8.7 L (9.5-13.5) fL Neut % (Auto) 63.5 (43.0-75.0) % Lymph % (Auto) 17.2 L (20.5-60.0) % [place] % (Auto) 8.7 (1.7-12.0) % Eos % (Auto) 9.3 H (0.9-7.0) % Baso % (Auto) 0.8 (0.2-2.0) % Neut # (Auto) 5.4 (1.4-6.5) 10^3/uL Lymph # (Auto) 1.5 (1.2-3.8) 10^3/uL [place] # (Auto) 0.7 (0.3-0.8) 10^3/uL Eos # (Auto) 0.8 H (0.0-0.7) 10^3/uL Baso # (Auto) 0.1 (0.0-0.1) 10^3/uL Abs Immat Gran (auto) 0.04 H (0.00-0.03) 10^3/uL Imm/Tot Granulo (auto) 0.5 (0.0-0.5) % Sodium 141 (136-145) mmol/L Potassium 4.2 (3.5-5.1) mmol/L Chloride 104 (98-107) mmol/L Carbon Dioxide 27.9 (21.0-32.0) mmol/L Anion Gap 13.3 BUN 15.0 (7.0-18.0) mg/dL Creatinine 1.09 (0.70-1.30) mg/dL Est GFR ( Amer) >60 (>=60) Est GFR (Non-Af Amer) >60 (>=60) BUN/Creatinine Ratio 13.8 Glucose 115 H (74-106) mg/dL Lactate 1.4 (0.4-2.0) mmol/L Calcium 9.1 (8.5-10.1) mg/dL Total Bilirubin 1.0 (0.2-1.0) mg/dL AST 28 (15-37) U/L ALT 24 (16-63) U/L Alkaline Phosphatase 82 (46-116) U/L Total Protein 7.1 (6.4-8.2) g/dL Albumin 3.2 L (3.4-5.0) g/dL Globulin 3.9 g/dL Albumin/Globulin Ratio 0.8 Discharge Plan Discharge Stand Alone Forms: Work/School Release, Portal Instructions Chief Complaint: Skin/Abscess/Foreign Body Clinical Impression: Abdominal wall cellulitis Cellulitis Qualifiers: Site of cellulitis: extremity Site of cellulitis of extremity: lower extremity Laterality: right Qualified Code(s): L03.115 - Cellulitis of right lower limb Hernia, umbilical Qualifiers: Obstruction and gangrene presence: without obstruction or gangrene Qualified Code(s): K42.9 - Umbilical hernia without obstruction or gangrene Patient Disposition: Home, Self-Care Time of Disposition Decision: 11:53 Condition: Good Prescriptions / Home Meds: New doxycycline hyclate 100 mg tablet 100 mg PO BID 10 Days Qty: 20 0RF cephalexin 500 mg capsule 500 mg PO Q8H 7 Days Qty: 21 0RF No Action metoprolol tartrate 25 mg tablet 25 mg PO BID mupirocin 2 % ointment 1 applic topical BID Qty: 50 11RF Print Language: Qatari Instructions: Cellulitis (ED), Umbilical Hernia (ED) Referrals: Fabio Herrera MD [Primary Care Provider] - 1 week
[2024-02-18] MEDS: CEFTRIAXONE 2,000 MG in 0.9 % SODIUM CHLORIDE 100 ML 200 MG IV (12:01)
[2024-02-18 12:28] VITALS: PULSE 87; O2SAT 99
== END 2024-02-18 12:29 | disposition home or self-care (01) ==
PROVIDERS: Emergency Provider Emergency Medicine; PCP Family Medicine
DX: L03.311 Cellulitis of abdominal wall (principal); K42.9 Umbilical hernia without obstruction or gangrene
CPT/HCPCS: 36415; 73620; 80053; 83605; 85025; 96365; 99285; J0696

== ENCOUNTER 2024-08-14 15:23 | Emergency (ER) | payer MEDICARE, SELFPAY ==
[2024-08-14 15:51] VITALS: BP 162/98; PULSE 89; TEMP 36.7; O2SAT 97; BMI 41.6
--- NOTE | 2024-08-14 15:58 | ED_ITS ---
HPI HPI - General Adult General Chief complaint: Nausea/Vomiting/Diarrhea Stated complaint: nausea, vomiting diarrhea Time Seen by Provider: 08/14/24 15:55 Source: patient Mode of arrival: walk-in History of Present Illness HPI narrative: Patient reports diarrhea for the last 2-1/2 days. He is going about 3 times each day and only once today. Stool is nonbloody. He reports nausea with no vomiting. 3 months ago he had abdominal hernia repair and has a history of cellulitis of the abdominal wall. He denies any problems right now pertaining to his abdominal wall. He denies chills or fever. Related Data Home Medications ?Medication ?Instructions ?Recorded ?Confirmed metoprolol tartrate 25 mg tablet 25 mg PO BID 01/08/24 02/18/24 Previous Rx's ?Medication ?Instructions ?Recorded mupirocin 2 % topical ointment 1 applic topical BID #50 grams 01/10/24 cephalexin 500 mg capsule 500 mg PO Q8H 7 days #21 caps 02/18/24 doxycycline hyclate 100 mg tablet 100 mg PO BID 10 days #20 tabs 02/18/24 ondansetron 4 mg disintegrating 4 mg PO Q6H PRN nausea and 08/14/24 tablet vomiting #10 tabs Allergies Allergy/AdvReac Type Severity Reaction Status Date / Time No Known Drug Allergies Allergy Verified 01/08/24 12:20 Opioid HPI Opioid Management Most Recent Opioid Data: Last Pain Scale 0 01/09/24 07:38 01/09/24 Last ORT Total Score 0 01/08/24 15:54 01/08/24 Last ORT Risk Category Low Risk 01/08/24 15:54 01/08/24 Review of Systems ROS Status of ROS 10 or more systems reviewed and unremark able except as noted in history and below [facility] Medical History Abdominal wall cellulitis ?L03.311 - Cellulitis of abdominal wall (ICD-10) Hernia, umbilical ?K42.9 - Umbilical hernia without obstruction or gangrene (ICD-10) Umbilical hernia without obstruction or gangrene ?K42.9 - Umbilical hernia without obstruction or gangrene (ICD-10) COPD (chronic obstructive pulmonary disease) ?J44.9 - Chronic obstructive pulmonary disease, unspecified (ICD-10) Family History Mother Family history of CHF (congestive heart failure) Family history of diabetes mellitus Family history of hypertension Family history of myocardial infarction Social History Within the past year, how often did you have a drink containing alcohol: never Within the past year, how many standard drinks containing alcohol did you have on a typical day: 1 or 2 Within the past year, how often did you have six or more drinks on one occasion: never Total score: 0 Score interpretation: A score less than 4 is consistent with normal alcohol consumption. Smoking status: Never smoker Non-prescribed substance use: denies use Previous occupational history: [employer] currently Highest level of school completed/degree received: high school graduate Do you want help with school or training: No Are you now , , , , never or living with a partner: In a typical week, how many times do you talk on the telephone with family, friends, or neighbors: 3 or more times per week How often do you get together with friends or relatives: 3 or more times per week How often do you attend anabaptism or restoration services: never Do you belong to any clubs or organizations such as anabaptism groups unions, fraternal or athletic groups, or school groups: no Total score: 1 Score interpretation: A score of less than or equal to 1 indicates the most socially isolated. Little interest or pleasure in doing things: not at all Feeling down, depressed, or hopeless: not at all Feel stressed/tense/nervous/anxious/difficulty sleeping: not at all Due to disability, difficulty making decisions: No Do you think of yourself as: straight/heterosexual Gender Identity: male Exam Narrative Exam Narrative: Alert nondistressed. Vital signs are stable and are as documented. HEENT exam is normal to inspection. Neck is supple. Lung sounds are clear to auscultation bilaterally with good air entry. Heart has regular rate and rhythm. Abdomen is protuberant and soft. There is no tenderness. Bowel sounds are hypoactive. There is no organomegaly. Speech and mentation are clear and intact. There is no facial asymmetry. Patient moves all extremities actively. Constitutional Vital Signs, click to edit/add: Last Vital Signs Temp 98.0 F 08/14/24 15:51 Pulse 89 08/14/24 15:51 Resp 18 08/14/24 15:51 BP 162/98 H 08/14/24 15:51 Pulse Ox 97 08/14/24 15:51 O2 Del Method Room Air 08/14/24 15:51 Course Vital Signs Vital signs: Vital Signs Temperature 98.0 F 08/14/24 15:51 Pulse Rate 89 08/14/24 15:51 Respiratory Rate 18 08/14/24 15:51 Blood Pressure 162/98 H 08/14/24 15:51 Pulse Oximetry 97 08/14/24 15:51 Oxygen Delivery Method Room Air 08/14/24 15:51 Temperature 98.0 F 08/14/24 15:51 Pulse Rate 89 08/14/24 15:51 Respiratory Rate 18 08/14/24 15:51 Blood Pressure 162/98 H 08/14/24 15:51 Pulse Oximetry 97 08/14/24 15:51 Oxygen Delivery Method Room Air 08/14/24 15:51 Medical Decision Making MDM Narrative Medical decision making narrative: Patient presents with nausea and some lower abdominal discomfort. He has not had diarrhea. CT scan of the abdomen pelvis reveals liquid and the colon suggestive of enterocolitis. There is no obstruction or perforation identified. A 4 mm mixed mass is reported in the right adnexa of uncertain significance. Patient does have some stones in the gallbladder. I am placing him on Zofran to control nausea and vomiting and have advised him a liquid diet for 24 hours. He is to follow-up with his PCP in the next few days for further management and follow-up of his CT scan findings. He may return to the ED anytime for worsening symptoms. Lab Data Labs: Lab Results 08/14/24 Range/Units 16:10 WBC 7.3 (4.0-11.0) 10^3/uL RBC 5.73 (4.70-6.10) 10^6/uL Hgb 11.3 L (14.0-18.0) g/dL Hct 39.8 L (42.0-54.0) % MCV 69.5 L (80.0-94.0) fL MCH 19.7 L (25.9-34.0) pg MCHC 28.4 L (29.9-35.2) g/dL RDW 18.9 H (11.0-15.0) % Plt Count 338 (150-450) 10^3/uL MPV 8.4 L (9.5-13.5) fL Neut % (Auto) 71.6 (43.0-75.0) % Lymph % (Auto) 15.1 L (20.5-60.0) % [place] % (Auto) 9.5 (1.7-12.0) % Eos % (Auto) 2.6 (0.9-7.0) % Baso % (Auto) 0.8 (0.2-2.0) % Neut # (Auto) 5.2 (1.4-6.5) 10^3/uL Lymph # (Auto) 1.1 L (1.2-3.8) 10^3/uL [place] # (Auto) 0.7 (0.3-0.8) 10^3/uL Eos # (Auto) 0.2 (0.0-0.7) 10^3/uL Baso # (Auto) 0.1 (0.0-0.1) 10^3/uL Abs Immat Gran (auto) 0.03 (0.00-0.03) 10^3/uL Imm/Tot Granulo (auto) 0.4 (0.0-0.5) % Sodium 138 (136-145) mmol/L Potassium 3.9 (3.5-5.1) mmol/L Chloride 104 (98-107) mmol/L Carbon Dioxide 25.2 (21.0-32.0) mmol/L Anion Gap 12.7 BUN 17.0 (7.0-18.0) mg/dL Creatinine 1.16 (0.70-1.30) mg/dL Est GFR ( Amer) >60 (>=60 mL/min/1.73m^2) Est GFR (Non-Af Amer) >60 (>=60 mL/min/1.73m^2) BUN/Creatinine Ratio 14.7 Glucose 86 (74-106) mg/dL Calcium 8.9 (8.5-10.1) mg/dL Total Bilirubin 0.8 (0.2-1.0) mg/dL AST 29 (15-37) U/L ALT 24 (16-63) U/L Alkaline Phosphatase 98 (46-116) U/L Total Protein 8.1 (6.4-8.2) g/dL Albumin 3.2 L (3.4-5.0) g/dL Globulin 4.9 g/dL Albumin/Globulin Ratio 0.7 Lipase 30.0 (16.0-77.0) U/L Discharge Plan Discharge Chief Complaint: Nausea/Vomiting/Diarrhea Clinical Impression: Gastroenteritis Patient Disposition: Home, Self-Care Time of Disposition Decision: 18:02 Condition: Good Mode of Transportation: Private Vehicle Prescriptions / Home Meds: New ondansetron 4 mg tablet,disintegrating 4 mg PO Q6H PRN (Reason: nausea and vomiting) Qty: 10 0RF No Action metoprolol tartrate 25 mg tablet 25 mg PO BID mupirocin 2 % ointment 1 applic topical BID Qty: 50 11RF doxycycline hyclate 100 mg tablet 100 mg PO BID 10 Days Qty: 20 0RF cephalexin 500 mg capsule 500 mg PO Q8H 7 Days Qty: 21 0RF Print Language: Estonian Instructions: Acute Nausea and Vomiting (ED), Enteritis (ED) Additional Instructions: Liquid diet for 24 hours. Follow-up with your physician in the next 2 or 3 days. Return for worsening symptoms Referrals: Fabio Herrera MD [Primary Care Provider] - As soon as possible
[2024-08-14 16:30] LABS: Basophils Absolute Auto 0.1 10^3/uL (0.0-0.1); Basophils Percent Auto 0.8 % (0.2-2.0); Eosinophils Absolute Auto 0.2 10^3/uL (0.0-0.7); Eosinophils Percent Auto 2.6 % (0.9-7.0); Hematocrit 39.8 % (42.0-54.0); Hemoglobin 11.3 g/dL (14.0-18.0); Immature Granulocytes Abs Auto 0.03 10^3/uL (0.00-0.03); Immature Granulocytes Pct Auto 0.4 % (0.0-0.5); Lymphocytes Absolute Auto 1.1 10^3/uL (1.2-3.8); Lymphocytes Percent Auto 15.1 % (20.5-60.0); Mean Corpuscular Hemoglobin 19.7 pg (25.9-34.0); Mean Platelet Volume 8.4 fL (9.5-13.5); Monocytes Absolute Auto 0.7 10^3/uL (0.3-0.8); Monocytes Percent Auto 9.5 % (1.7-12.0); Neutrophils Absolute Auto 5.2 10^3/uL (1.4-6.5); Neutrophils Percent Auto 71.6 % (43.0-75.0); Platelet Count 338 10^3/uL (150-450); Red Blood Count 5.73 10^6/uL (4.70-6.10); White Blood Count 7.3 10^3/uL (4.0-11.0)
[2024-08-14 16:42] LABS: Mean Corpuscular Volume 69.5 fL (80.0-94.0); Red Cell Distribution Width 18.9 % (11.0-15.0)
[2024-08-14 16:43] LABS: Mean Corpuscular HGB Conc 28.4 g/dL (29.9-35.2)
[2024-08-14 16:55] LABS: Alanine Aminotransferase 24 U/L (16-63); Albumin Globulin Ratio 0.7; Albumin Level 3.2 g/dL (3.4-5.0); Alkaline Phosphatase 98 U/L (46-116); Anion Gap 12.7; Aspartate Amino Transferase 29 U/L (15-37); BUN Creatinine Ratio 14.7; Bilirubin Total 0.8 mg/dL (0.2-1.0); Calcium 8.9 mg/dL (8.5-10.1); Carbon Dioxide 25.2 mmol/L (21.0-32.0); Chloride 104 mmol/L (98-107); Estimated GFR (African America >60 (>=60 mL/min/1.73m^2); Estimated GFR (Non-African Ame >60 (>=60 mL/min/1.73m^2); Globulin 4.9 g/dL; Glucose 86 mg/dL (74-106); Potassium 3.9 mmol/L (3.5-5.1); Sodium 138 mmol/L (136-145); Total Protein 8.1 g/dL (6.4-8.2)
== END 2024-08-14 18:16 | disposition home or self-care (01) ==
PROVIDERS: Emergency Provider Emergency Medicine; PCP Family Medicine
DX: K52.9 Noninfective gastroenteritis and colitis, unspecified (principal); R11.0 Nausea
CPT/HCPCS: 36415; 74176; 80053; 83690; 85025; 99285

== ENCOUNTER 2025-02-11 14:47 | Emergency (ER) | payer MEDICARE, SELFPAY ==
[2025-02-11 14:53] VITALS: BP 159/98; PULSE 88; TEMP 37.2; O2SAT 99; BMI 33.3
[2025-02-11] MEDS: TETRACAINE HCL 0.5% OP SOL 80 DROP/4 ML BOTTLE OP (15:05)
--- NOTE | 2025-02-11 15:09 | ED_ITS ---
HPI - Eye Problem General Chief complaint: Eye Problems Stated complaint: EYE PAIN Time Seen by Provider: 02/11/25 14:55 Source: patient Mode of arrival: walk-in Limitations: no limitations History of Present Illness HPI Narrative: 74-year-old male is coming to the ER with a pain to his right lower eyelid, he mentioned that the eye itself is normal he had no headache but he has been having this swelling to the right lower eyelid and he mentioned that today it was painful and there is drainage around the The patient denies any fall or trauma he mentioned that he had some itching earlier No fever Related Data Home Medications ?Medication ?Instructions ?Recorded ?Confirmed metoprolol tartrate 25 mg tablet 25 mg PO BID 01/08/24 02/11/25 Previous Rx's ?Medication ?Instructions ?Recorded amoxicillin 875 mg-potassium 1 tab PO Q12H #20 tabs clavulanate 125 mg tablet erythromycin 5 mg/gram (0.5 %) eye 0.5 inch ophthalmic (eye) Q4H #3.5 02/11/25 ointment grams Allergies Allergy/AdvReac Type Severity Reaction Status Date / Time No Known Drug Allergies Allergy Verified 01/08/24 12:20 Review of Systems ROS Status of ROS 10 or more systems reviewed and unremark able except as noted in history and below PFSH [facility] Medical History Abdominal wall cellulitis ?L03.311 - Cellulitis of abdominal wall (ICD-10) Hernia, umbilical ?K42.9 - Umbilical hernia without obstruction or gangrene (ICD-10) Umbilical hernia without obstruction or gangrene ?K42.9 - Umbilical hernia without obstruction or gangrene (ICD-10) COPD (chronic obstructive pulmonary disease) ?J44.9 - Chronic obstructive pulmonary disease, unspecified (ICD-10) Family History Mother Family history of CHF (congestive heart failure) Family history of diabetes mellitus Family history of hypertension Family history of myocardial infarction Social History Within the past year, how often did you have a drink containing alcohol: never Within the past year, how many standard drinks containing alcohol did you have on a typical day: 1 or 2 Within the past year, how often did you have six or more drinks on one occasion: never Total score: 0 Score interpretation: A score less than 4 is consistent with normal alcohol consumption. Smoking status: Never smoker Non-prescribed substance use: denies use Previous occupational history: [employer] currently Highest level of school completed/degree received: high school graduate Do you want help with school or training: No Are you now , , , , never or living with a partner: In a typical week, how many times do you talk on the telephone with family, friends, or neighbors: 3 or more times per week How often do you get together with friends or relatives: 3 or more times per week How often do you attend sabianist or catholic services: never Do you belong to any clubs or organizations such as sabianist groups unions, [employer] or athletic groups, or school groups: no Total score: 1 Score interpretation: A score of less than or equal to 1 indicates the most socially isolated. Little interest or pleasure in doing things: not at all Feeling down, depressed, or hopeless: not at all Feel stressed/tense/nervous/anxious/difficulty sleeping: not at all Due to disability, difficulty making decisions: No Do you think of yourself as: straight/heterosexual Gender Identity: male Exam Narrative Exam Narrative: Nurses notes and vital signs reviewed and patient is not hypoxic. General: Well-appearing and in no apparent distress. Skin: Warm, dry, no pallor noted. No rash. Head: Normocephalic, atraumatic. Neck: Supple, non-tender. Eye: Pupils are equal, round . No scleral icterus. The patient right lower eyelid shows a stye almost to them at the medial aspect but away from the opening of the lacrimal duct almost 1 cm lateral to that there is no limitation of the movement of the eye and the patient globe does not show any pathology. Constitutional Vital Signs, click to edit/add: Last Vital Signs Temp 99.0 F 02/11/25 14:53 Pulse 88 02/11/25 14:53 Resp 18 02/11/25 14:53 BP 159/98 H 02/11/25 14:53 Pulse Ox 99 02/11/25 14:53 O2 Del Method Room Air 02/11/25 14:53 Course Vital Signs Vital signs: Vital Signs Temperature 99.0 F 02/11/25 14:53 Pulse Rate 88 02/11/25 14:53 Respiratory Rate 18 02/11/25 14:53 Blood Pressure 159/98 H 02/11/25 14:53 Pulse Oximetry 99 02/11/25 14:53 Oxygen Delivery Method Room Air 02/11/25 14:53 Temperature 99.0 F 02/11/25 14:53 Pulse Rate 88 02/11/25 14:53 Respiratory Rate 18 02/11/25 14:53 Blood Pressure 159/98 H 02/11/25 14:53 Pulse Oximetry 99 02/11/25 14:53 Oxygen Delivery Method Room Air 02/11/25 14:53 MDM - Eye Problem MDM Narrative Medical decision making narrative: The patient presented to us with what seem to be a stye or holding him that been going on for a long time although he noticed some pain with it today but just changes about it it looks like it has been going for more than few days but yet the patient was started on antibiotic mostly Augmentin as well as erythromycin The hordeolum or the stye was almost 0.5 cm circular and there was an area of redness around it that almost 0.5 cm as well there is no fluctuation and at the moment the patient started antibiotic with instruction of coming back to the ER in case of any fever or limitation of movement of the right eye and he is referred to see the atm manager tomorrow morning The patient was instructed about the importance of monitoring symptom The patient is to follow up with primary care physician in next 2-3 days or to return to the emergency department should any of the signs or symptoms worsen or new symptoms develop. The patient agrees with the following Diagnosis and Treatment plan and the patient will be discharged home. Discharge Plan Discharge Chief Complaint: Eye Problems Clinical Impression: Hordeolum externum of right lower eyelid Patient Disposition: Home, Self-Care Time of Disposition Decision: 15:09 Condition: Good Prescriptions / Home Meds: New amoxicillin-pot clavulanate 875-125 mg tablet 1 tab PO Q12H Qty: 20 0RF erythromycin 5 mg/gram (0.5 %) ointment 0.5 inch ophthalmic (eye) Q4H Qty: 3.5 0RF Rx Instructions: please apply to the right eye No Action metoprolol tartrate 25 mg tablet 25 mg PO BID Print Language: Lao Instructions: Rolando (ED) Referrals: Fabio Herrera MD [Primary Care Provider, Family Practice] - 1 week Morgan Nance MD [Physician, Opthalmology] - As soon as possible Referral Note: [facility], [address], [place] [address] phone : Discharge Date/Time: 02/11/25 15:17
== END 2025-02-11 15:17 | disposition home or self-care (01) ==
PROVIDERS: Emergency Provider Emergency Medicine; PCP Family Medicine
DX: H00.012 Hordeolum externum right lower eyelid (principal)
CPT/HCPCS: 99283

== ENCOUNTER 2025-05-18 18:56 | Emergency (ER) | payer MEDICARE, SELFPAY ==
[2025-05-18] VITALS (15 sets, daily range): BP systolic 99–125; BP diastolic 66–86; PULSE 88–108; TEMP 36.6; O2SAT 99; BMI 33.3
--- NOTE | 2025-05-18 19:16 | ECG_ITS ---
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 Measurements Intervals [place] Rate: 98 P: -22272 SC: -56754 QRS: 144 QRSD: 80 T: 19 QT: 360 QTc: 415 Interpretive Statements 1210 Atrial fibrillation 2730 Left posterior fascicular block 7300 Indeterminate axis 9150 abnormal ECG Compared to ECG 08/26/2023 08:13:32 Left posterior fascicular block now present Indeterminate axis now present Myocardial infarct finding no longer present ST (T wave) deviation no longer present Electronically Signed On 05-18-2025 19:51:51 EST by KADE ALBRECHT M.D.
--- NOTE | 2025-05-18 19:17 | ED_ITS ---
HPI - Extremity Problem General Chief complaint: Extremity Problem, Nontraumatic Stated complaint: Fluid draining from knee Time Seen by Provider: 05/18/25 19:01 Source: patient Mode of arrival: walk-in Limitations: no limitations History of Present Illness HPI Narrative: This 74-year-old male with a history of paroxysmal atrial fibrillation who appears to have psoriasis with multiple dried plaques and patches on his stomach, arms, legs and back but has never been diagnosed with psoriasis presents for evaluation of lower extremity swelling and drainage from his legs. He does not have any pain in his legs. He has not had a fever. His legs are covered with severely dry skin/psoriatic patches and a small amount of serous drainage. He has been scratching at his legs stating that they itch. He is not on any blood thinners. He is not having any chest pain or shortness of breath. He does not have any difficulty with exertion and he states he can sleep flat on his back at night. Related Data Home Medications ?Medication ?Instructions ?Recorded ?Confirmed metoprolol tartrate 25 mg tablet 25 mg PO BID 01/08/24 05/18/25 Allergies Allergy/AdvReac Type Severity Reaction Status Date / Time No Known Drug Allergies Allergy Verified 05/18/25 19:08 Review of Systems ROS Status of ROS 10 or more systems reviewed and unremark able except as noted in history and below [facility] Medical History Abdominal wall cellulitis ?L03.311 - Cellulitis of abdominal wall (ICD-10) Hernia, umbilical ?K42.9 - Umbilical hernia without obstruction or gangrene (ICD-10) Umbilical hernia without obstruction or gangrene ?K42.9 - Umbilical hernia without obstruction or gangrene (ICD-10) COPD (chronic obstructive pulmonary disease) ?J44.9 - Chronic obstructive pulmonary disease, unspecified (ICD-10) Family History Mother Family history of CHF (congestive heart failure) Family history of diabetes mellitus Family history of hypertension Family history of myocardial infarction Social History Within the past year, how often did you have a drink containing alcohol: never Within the past year, how many standard drinks containing alcohol did you have on a typical day: 1 or 2 Within the past year, how often did you have six or more drinks on one occasion: never Total score: 0 Score interpretation: A score less than 4 is consistent with normal alcohol consumption. Smoking status: Never smoker Non-prescribed substance use: denies use Previous occupational history: [employer] currently Highest level of school completed/degree received: high school graduate Do you want help with school or training: No Are you now , , , , never or living with a partner: In a typical week, how many times do you talk on the telephone with family, friends, or neighbors: 3 or more times per week How often do you get together with friends or relatives: 3 or more times per week How often do you attend rastafari or adventism services: never Do you belong to any clubs or organizations such as rastafari groups unions, fraternal or athletic groups, or school groups: no Total score: 1 Score interpretation: A score of less than or equal to 1 indicates the most socially isolated. Little interest or pleasure in doing things: not at all Feeling down, depressed, or hopeless: not at all Feel stressed/tense/nervous/anxious/difficulty sleeping: not at all Due to disability, difficulty making decisions: No Do you think of yourself as: straight/heterosexual Gender Identity: male Exam Narrative Exam Narrative: Vital signs and Nursing Notes reviewed: Patient is afebrile, mildly tachycardic with a pulse of 108, he has a normal blood pressure, he is not hypoxic with pulse ox of 99% on room air General: Awake, alert, oriented, no acute distress, lying comfortably on the stretcher HEENT: Normocephalic atraumatic, mucous membranes are moist and pink, eyes are clear, normal conjunctiva, vision is grossly intact, posterior pharynx is normal in appearance Neck: Supple, no JVD Chest: Lungs are clear to auscultation with good air entry, there is no wheezing rhonchi or rales appreciated no accessory muscle use, patient is speaking in complete sentences-no chest wall tenderness to palpation CVS: Regular rate and rhythm S1-S2, no murmurs rubs or gallops, pulses are brisk and equal bilaterally ABD: Soft, nondistended, nontender, no rebound guarding or rigidity, bowel sounds are normal, no pulsatile masses appreciated-large plaque of dried, pink flaking skin consistent with psoriasis or eczema Extremities: Moving all extremities, extremities are mildly edematous with a large amount of flaking skin, there is a small amount of serous drainage, feet are warm and sensate, dorsalis pedis pulses are brisk, there is no calf swelling or tenderness noted Skin: Multiple areas of plaques and areas of sores and macules/papules consistent with either psoriasis or eczema on the patient's back, abdominal wall, arms and lower extremities, there is no sign of any gross cellulitis, there are areas of excoriation noted mostly in his lower extremities Neuro: No focal deficits Constitutional Vital Signs, click to edit/add: Last Vital Signs Temp 97.9 F 05/18/25 19:03 Pulse 103 H 05/18/25 19:50 Resp 17 05/18/25 19:50 BP 111/67 05/18/25 20:45 Pulse Ox 99 05/18/25 19:03 O2 Del Method Room Air 05/18/25 19:03 Course Vital Signs Vital signs: Vital Signs Temperature 97.9 F 05/18/25 19:03 Pulse Rate 108 H 05/18/25 19:03 Respiratory Rate 18 05/18/25 19:03 Blood Pressure 121/86 05/18/25 19:03 Pulse Oximetry 99 05/18/25 19:03 Oxygen Delivery Method Room Air 05/18/25 19:03 Temperature 97.9 F 05/18/25 19:03 Pulse Rate 103 H 05/18/25 19:50 Respiratory Rate 17 05/18/25 19:50 Blood Pressure 111/67 05/18/25 20:45 Pulse Oximetry 99 05/18/25 19:03 Oxygen Delivery Method Room Air 05/18/25 19:03 MDM - Extremity (Nontraumatic) MDM Narrative Medical decision making narrative: This 74-year-old with a history of A-fib presents for evaluation of lower extremity redness, swelling and drainage of serous fluid over the past several days. He does have chronic appearing skin changes with severely dry skin on his lower extremities with some small amount of fluid. There is no gross signs of cellulitis. He has not had any fever. He is not having any chest pain or shortness of breath. EKG is atrial fibrillation at 98 bpm. Routine labs were ordered and are reviewed. He has a normal white count and stable hemoglobin. Lecture lites are normal. Troponin is normal. BNP is elevated at 1773. Chest x-ray does not show any signs of severe pulmonary edema. Due to the elevated BNP and draining from his legs he was medicated with 20 mg of IV Lasix and 1 g of IV Rocephin. He will be discharged home with a prescription for Keflex and Lasix to use for the next week. He was encouraged to follow-up closely with his family physician for further evaluation and treatment. He will also be prescribed Atarax for the itching of his skin. Lab Data Labs: Lab Results 05/18/25 Range/Units 19:24 WBC 9.1 (4.0-11.0) 10^3/uL RBC 4.86 (4.70-6.10) 10^6/uL Hgb 10.7 L (14.0-18.0) g/dL Hct 36.8 L (42.0-54.0) % MCV 75.7 L (80.0-94.0) fL MCH 22.0 L (25.9-34.0) pg MCHC 29.1 L (29.9-35.2) g/dL RDW 16.2 H (11.0-15.0) % Plt Count 363 (150-450) 10^3/uL MPV 8.7 L (9.5-13.5) fL Seg Neuts % (Manual) 54.0 (43.0-75.0) Lymphocytes % (Manual) 8.0 L (20.5-60.0) % Atypical Lymphs % (Man) 3.0 % Monocytes % (Manual) 5.0 (1.7-12.0) % Eosinophils % (Manual) 31.0 H (0.9-7.0) % Basophils % (Manual) 0.0 L (0.2-2.0) % Neutrophils # (Manual) 4.91 (1.4-6.5) 10^3/uL Lymphocytes # (Manual) 0.72 L (1.20-3.80) 10^3/uL Abs Atypical Lymphs Man 0.27 Monocytes # (Manual) 0.45 (0.30-0.80) 10^3/uL Eosinophils # (Manual) 2.82 H (0.00-0.70) 10^3/uL Basophils # (Manual) 0.00 (0.00-0.10) 10^3/uL Hypochromasia 2+ Sodium 140 (136-145) mmol/L Potassium 3.9 (3.5-5.1) mmol/L Chloride 106 (98-107) mmol/L Carbon Dioxide 31.3 (21.0-32.0) mmol/L Anion Gap 6.6 BUN 17.0 (7.0-18.0) mg/dL Creatinine 0.99 (0.70-1.30) mg/dL Est GFR ( Amer) >60 (>=60 mL/min/1.73m^2) Est GFR (Non-Af Amer) >60 (>=60 mL/min/1.73m^2) BUN/Creatinine Ratio 17.2 Glucose 101 (74-106) mg/dL Calcium 8.7 (8.5-10.1) mg/dL Total Bilirubin 0.5 (0.2-1.0) mg/dL AST 22 (15-37) U/L ALT 25 (16-63) U/L Alkaline Phosphatase 97 (46-116) U/L NT-Pro-B Natriuret Pep 1773.0 H* (<=900.0) pg/mL Total Protein 7.1 (6.4-8.2) g/dL Albumin 2.7 L (3.4-5.0) g/dL Globulin 4.4 g/dL Albumin/Globulin Ratio 0.6 ECG Data Attestation ECG: I personally reviewed and interpreted this ECG as follows: (Atrial fibrillation 98 bpm, indeterminate axis, left posterior fascicular block, no acute ST segment elevation or T wave inversion) Discharge Plan Discharge Chief Complaint: Extremity Problem, Nontraumatic Clinical Impression: Edema, peripheral Patient Disposition: Home, Self-Care Time of Disposition Decision: 20:55 Condition: Good Prescriptions / Home Meds: No Action metoprolol tartrate 25 mg tablet 25 mg PO BID Print Language: Ukrainian Instructions: Leg Edema (ED), Low-Sodium Diet (ED) Referrals: Fabio Herrera MD [Primary Care Provider, Family Practice] - 1 week
[2025-05-18 19:30] LABS: Hematocrit 36.8 % (42.0-54.0); Hemoglobin 10.7 g/dL (14.0-18.0); Mean Corpuscular HGB Conc 29.1 g/dL (29.9-35.2); Mean Corpuscular Hemoglobin 22.0 pg (25.9-34.0); Mean Corpuscular Volume 75.7 fL (80.0-94.0); Platelet Count 363 10^3/uL (150-450); Red Blood Count 4.86 10^6/uL (4.70-6.10); White Blood Count 9.1 10^3/uL (4.0-11.0)
--- OUTSIDE RECORDS SUMMARY | 2025-05-18 19:42 | XMS_ITS | CCD ---
Author Organization [facility] Care Team Providers Care Chinese Medicine Practitioner Name Role Phone Hola Villafuerte Unavailable Unavailable Unavailable CHRISTO ., DR SIMENTAL Attending Unavailable HOY ., DR SIMENTAL Consulting Unavailable HOY ., DR SIMENTAL Primary Care Unavailable HOY ., DR SIMENTAL Admitting Unavailable SAROJ DOMINGUEZ Consulting Unavailable DIAB ., JING Consulting Unavailable KARLIE, DR RANDY Domingo Admitting Unavailabl e HOY ., DR SIMENTAL Primary Care Unavailable REINECK, DR RANDY Domingo Attending Unavailabl e REINECK, DR RANDY Domingo Consulting Unavailabl e HAY ., DR [...] Unavailable HOY ., DR SIMENTAL Admitting Unavailable ZIEBER, DR ROHITH Archuleta Consulting Unavailable NADERER, DR NASEEM Singh Consulting Unavailable RADHA ., CRYSTAL Consulting Unavailable Johnathan Howe Referring UnavaJohnathan Jeffrey Attending Unavailable Dr. Hola Villafuerte Primary Care Unavail able Dr. Hola Villafuerte Primary Care Unavail Johnathan San Referring Unavailable Johnathan Howe Attending Unavailable Hola Villafuerte MD Primary Care Provider [phone] JOHNATHAN HOWE Attending Unavailable HOLA VILLAFUERTE Primary Care Unavailable JOHNATHAN HOWE Referring Unavailable RANDY MOREAU Attending Unavailable ELAINE BELTRAN Referring Unavailable HOLA VILLAFUERTE Primary Care Unavailable HOLA VILLAFUERTE Primary Care Unavailable RONALD ELKINS Attending Unavailable [facility]ARDIOLOGY, [facility] Consulting Unavailable RANDY MOREAU Admitting Unavailable MARKY, JALEELA Referring Unavailable HOY, HOLA M Primary Care Unavailable RANDY MOREAU Attending Unavailable RANDY MOREAU Referring Unavailable HOY, HOLA M Primary Care Unavailable GINA RAMÍREZ Referring Unavailable HOY, HOLA M Primary Care Unavailable HOY, HOLA M Primary Care Unavailable Hola Villafuerte MD Primary Care Provider [phone] Hola Villafuerte MD Primary Care Provider [phone] CHRISTO, HOLA Leticia Primary Care Unavailable PRISCILA LEE Attending Unavailable ISATU SARGENT Attending Unavailable HOY, HOLA M Referring Unavailable HOY, HOLA M Primary Care Unavailable HOY, HOLA M Primary Care Unavailable HOY, HOLA M Referring Unavailable JESUS LAZARO Attending Unavailable ISATU SARGENT Attending Unavailable HOY, HOLA M Referring Unavailable HOY, HOLA M Primary Care Unavailable HOY, HOLA M Primary Care Unavailable HOY, HOLA M Referring Unavailable ISATU SARGENT Attending Unavailable HOY, HOLA M Primary Care Unavailable HOY, HOLA M Referring Unavailable ISATU SARGENT Attending Unavailable HOY, HOLA M Primary Care Unavailable HOY, HOLA M Referring Unavailable ISATU SARGENT Attending Unavailable HOY, HOLA M Primary Care Unavailable HOY, HOLA M Referring Unavailable ISATU SARGENT Attending Unavailable HOY, HOLA M Primary Care Unavailable HOY, HOLA M Referring Unavailable ISATU SARGENT Attending Unavailable HOY, HOLA M Primary Care Unavailable HOY, HOLA M Referring Unavailable ISATU SARGENT Attending Unavailable HOY, HOLA M Primary Care Unavailable HOY, HOLA M Referring Unavailable ISATU SARGENT Attending Unavailable ISATU SARGENT Attending Unavailable HOY, HOLA M Primary Care Unavailable HOY, HOLA M Referring Unavailable ISATU SARGENT Attending Unavailable HOY, HOLA M Primary Care Unavailable HOY, HOLA M Referring Unavailable ISATU SARGENT P Attending Unavailable HOY, HOLA M Primary Care Unavailable HOY, HOLA M Referring Unavailable Medications Current Medications MedicationDrug Class(es)DatesSig (Normalized)Sig (Original)acetaminophen 500 mg oral tablet (19 sources)Start: 80-70-0322jlmf 2 tablets by mouth every six hours as needed for painacetaminophen (TYLENOL EXTRA STRENGTH) 500 mg tablet Take 2 tablets (1,000 mg total) by mouth every6 (six) hours as needed for pain. 30 tablet 02/28/2024 Activeapixaban 5 mg oral tablet (17 sources)Factor Xa InhibitorStart: 06-06-2023 End: 14-17-0572ysbf 1 tablet by mouth in the morning, then take 1 tablet by mouth at bedtimeapixaban (ELIQUIS) 5 mg tablet Take 1 tablet (5 mg total) by mouth in the morning and 1 tablet (5 mg total) before bedtime. Do all this for 30 days. 60 tablet 02/28/2024 03/29/2024 Activeatorvastatin 80 mg oral tablet (12 sources)HMG-CoA Reductase InhibitorStart: 08-17-2020 End: 99-75-4429tdda 1 tablet by mouth once daily at bedtimeatorvastatin (Lipitor) 80 mg tablet Indications: Mixed hyperlipidemia Take 1 tablet (80 mg) by mouth once daily at bedtime. 90 tablet 3 06/06/2023 06/05/2024 Active famotidine 10 mg oral tablet (1 source)Histamine-2 Receptor Antagonistfamotidine (Heartburn Relief, famotidine,) 10 mg tablet Take by mouth. 0 Activelosartan potassium 25 mg oral tablet (4 sources)Angiotensin 2 Receptor BlockerStart: 05-10-2022 End: 23-04-1586psoz 1 tablet by mouth once dailylosartan (Cozaar) 25 mg tablet Indications: Primary hypertension Take 1 tablet (25 mg) by mouth once daily. 90 tablet 3 06/06/2023 06/05/2024 Activemetoprolol tartrate 25 mg oral tablet (20 sources)beta-Adrenergic BlockerStart: 06-06-2023 End: 85-35-1482gzpr 0.5 tablet by mouth twice dailymetoprolol tartrate (Lopressor) 25 mg tablet Indications: Persistent atrial fibrillation (CMS/HCC) T ayo 0.5 tablets (12.5 mg) by mouth 2 times a day. 90 tablet 3 06/06/2023 06/05/2024 Activetake 1 tablet by mouth in the morning, then take 1 tablet by mouth at bedtimemetoprolol tartrate (LOPRESSOR) 25 mg tablet Take 1 tablet (25 mg total) by mouth in the morning and 1 tablet (25 mg total) before bedtime. Activenitroglycerin 0.4 mg sublingual tablet (10 sources)Nitrate VasodilatorStart: 04-13-2021 End: 01-44-5602jjiduhllgddpe (Nitrostat) 0.[address] 1 tablet (0.4 mg) under the tongue every 5 minutesif needed. 0 04/13/2021 06/06/2023 Discontinued (Other)triamcinolone acetonide 0.001 mg/mg topical ointment (4 sources)CorticosteroidStart: 07-11-2024 End: 73-62-1954tweyvatdqbtry (KENALOG) 0.1 % ointment Indications: Irritant contact dermatitis due to other chemical products Apply 1 Application topically in the morning and 1 Application before bedtime. Do all this for 14 days. Apply thin layer to red, itching areas of skin of surrounding wound bed to abdomen. 30 g 07/11/2024 07/25/2024 ActiveStart: 07-11-2024 End: Application, topical, As needed, irritation, Starting on Sun07/11/24 at 1433, Apply to irritaed skin around woundStart: Application, topical, As needed, irritation, Starting on Sun06/27/24 at 1551, Apply to irritaed skin around wound Completed/Discontinued Medications MedicationDrug Class(es)DatesSig (Normalized)Sig (Original)[id number] 200 actuat albuterol 0.09 mg/actuat metered dose inhaler (2 sources)beta2-Adrenergic AgonistStart: 34-04-1238bpnj 2 puff(s) by inhalation every six hours as needed for wheezingalbuterol (PROVENTIL HFA;VENTOLIN HFA) 90 mcg/actuation inhaler Indications: Pneumonia due to COVID-19 virus Inhale 2 puffs every 6 (six) hours as needed for wheezing or shortness of breath. 18 g 11 03/11/2021 SuspendedAnti-Diarrheal TABS (8 sources)Anti-Diarrheal TABS TAKE PO NEEDED. Quantity: 0 Refills: 0 Ordered: 06-Oct-2021 DO ActiveAnti-Diarrheal TABS TAKE NEEDED. Quantity: 0 Refills: 0 Ordered: 13-Apr-2021 DO Activeaspirin 81 mg delayed release oral tablet (9 sources)Platelet Aggregation Inhibitor, Nonsteroidal Anti-inflammatory Drug take 1 tablet by mouth in the morningaspirin 81 mg Take 1 tablet (81 mg total) by mouth in the morning. Suspendedtake 1 tablet by mouth once dailyAspirin EC 81 MG Oral Tablet Delayed Release TAKE 1 TABLET PO DAILY. Quantity: 0 Refills: 0 Ordered: 06-Oct-2021 DO Activecephalexin 500 mg oral capsule (9 sources)Cephalosporin AntibacterialStart: 02-18-2024 End: 42-33-0991fhre 1 capsule by mouth every eight hoursCEPHalexin (KEFLEX) 500 mg capsule Take 1 capsule (500 mg total) by mouth every 8 (eight) hours. TAKE 1 CAPSULE BY MOUTH EVERY 8 HOURS FOR 7 DAYS 02/18/2024 03/28/2024 Discontinued (Therapy completed)clopidogrel 75 mg oral tablet (6 sources)P2Y12 Platelet Inhibitortake 1 tablet by mouth once dailyClopidogrel Bisulfate 75 MG Oral Tablet TAKE 1 TABLET PO DAILY. Quantity: 0 Refills: 0 Ordered: 06-Oct-2021 DO Activedoxycycline hyclate 100 mg oral tablet (9 sources)Tetracycline-class DrugStart: 02-18-2024 End: 58-33-3210mhba 1 tablet by mouth in the morning, then take 1 tablet by mouth at bedtime, then take 1 tablet by mouth twice dailydoxycycline (VIBRA- TABS) 100 mg tablet Take 1 tablet (100 mg total) by mouth in the morning and 1 tablet (100 mg total) before bedtime. TAKE 1 TABLET BY MOUTH TWICE DAILY FOR 10 DAYS. 02/18/2024 03/28/2024 Discontinued (Therapy completed)furosemide 40 mg oral tablet (3 sources)Loop Diuretictake 1 tablet by mouth once dailyFurosemide 40 MG Oral Tablet TAKE 1 TABLET PO DAILY. Quantity: 90 Refills: 0 Ordered: 06-Oct-2021 DO ActiveHeartburn Relief TABS (8 sources)Heartburn Relief TABS Take tablet PO PRN Quantity: 0 Refills: 0 Ordered: 06-Oct-2021 DO ActiveHeartburn Relief TABS TAKE TABLET PRN Quantity: 0 Refills: 0 Ordered: 13-Apr-2021 DO Activelidocaine 25 mg/ml / prilocaine 25 mg/ml topical cream (1 source)Antiarrhythmic, Amide Local AnestheticStart: 08-22-2024 End: Application, topical, Once, On Sun08/22/24 at 1400, For 1 dose, If no allergy, apply topically towounds with each wound care appointment with practitioner for pain control.Start: 08-22-2024 End: Application, topical, Once, On Sun08/22/24 at 1400, For 1 dose, If no allergy, apply topically towounds with each wound care appointment with practitioner for pain control.lisinopril 5 mg oral tablet (3 sources)Angiotensin Converting Enzyme Inhibitortake 1 tablet by mouth once dailyLisinopril 5 MG Oral Tablet take 1 tablet po daily Quantity: 0 Refills: 0 Ordered: 06-Oct-2021 DO Activeloperamide hydrochloride 2 mg oral capsule (2 sources)Opioid AgonistStart: 88-38-3362gtrn 1 capsule by mouth four times daily as needed for diarrhealoperamide (IMODIUM) 2 mg capsule Take 1 capsule (2 mg total) by mouth 4 (four) times a day as needed for diarrhea. 30 capsule 03/11/2021 Suspendedmupirocin 0.02 mg/mg topical ointment (9 sources)RNA Synthetase Inhibitor AntibacterialStart: 01-10-2024 End: 79-29-0813zhnqzrdou (BACTROBAN) 2 % ointment Apply 1 Application topically in the morning and 1 Application before bedtime. 01/10/2024 03/28/2024 Discontinued (Therapy completed)pantoprazole 40 mg delayed release oral tablet (2 sources)Proton Pump Inhibitortake 1 tablet by mouth in the morning pantoprazole (PROTONIX) 40 mg EC tablet Take 1 tablet (40 mg total) by mouth in the morning. Suspendedpotassium chloride 10 meq extended release oral tablet (3 sources)take 1 tablet by mouth once daily at mealtimePotassium Chloride ER 10 MEQ Oral Tablet Extended Release TAKE 1 TABLET PO DAILY WITH FOOD. Quantity: 90 Refills: 2 Ordered: 06-Oct-2021 DO Activeticagrelor 90 mg oral tablet (5 sources)take 1 tablet by mouth onceticagrelor (BRILINTA) 90 mg tablet Take 1 tablet (90 mg total) by mouth every 12 (twelve) hours. Suspendedtake 1 tablet by mouth twice dailyBrilinta 90 MG Oral Tablet TAKE 1 TABLET PO twice DAILY. Quantity: 180 Refills: 1 Ordered: 06-Oct-2021 DO Activewarfarin sodium 5 mg oral tablet (5 sources)Vitamin K AntagonistStart: 77-06-8914sakl 1 tablet by mouth once dailywarfarin (COUMADIN) 5 mg tablet Take 1 tablet (5 mg total) by mouth daily. Dose dependent upon INR results. INR to be drawn 03/12/21. 03/11/2021 Suspended take 1 tablet by mouth once dailyWarfarin Sodium 3 MG Oral Tablet TAKE 1 TABLET PO DAILY OR [facility] Quantity: 0 Refills: 0 Ordered: 06-Oct-2021 DO Active Problems Active Problems Problem ClassificationProblemDateDocumented DateEpisodic/ChronicAcute and unspecified renal failure (1 source)Acute kidney failure, unspecified; Translations: [ACUTE KIDNEY FAILURE UNSPECIFIED]Onset: 74-70-7984JcbmgwhlOlhud bronchitis (1 source)Acute bronchitis, unspecified; Translations: [ACUTE BRONCHITIS UNSPECIFIED]Onset: 99-94-8454VgwdzfwjXtminqtg reactions (7 sources)Irritant contact dermatitis caused by chemical; Translations: [Irritant contact dermatitis due to other chemical products]Onset: 09-24-2024 16-16-4166MtcyguazMrdyqzfh of urinary tract (2 sources)Personal history of urinary calculi; Translations: [Calculus of ureter]Onset: 70-50-0891KkvljvajCwwdvrf dysrhythmias (20 sources)Paroxysmal atrial fibrillation; Translations: [Atrial fibrillation] Onset: 11-03-2020 Resolved: 37-42-2479YrcguduQqwddlb kidney disease (1 source)Chronic kidney disease, stage 2 (mild); Translations: [CHRONIC KIDNEY DISEASE STAGE 2 MILD]Onset: 72-47-8119AckywpiSiltchy obstructive pulmonary disease and bronchiectasis (15 sources)Chronic obstructive pulmonary disease with (acute) lower respiratory infection; Translations: [Chronic obstructive pulmonary disease with (acute) exacerbation]Onset: 201107-54-3656AflblumDqjjmjiljg heart failure; nonhypertensive (5 sources)Acute combined systolic (congestive) and diastolic (congestive) heart failure; Translations: [Heartfailure]Onset: 982680-88-9997QbdmcvqDsuppvoe atherosclerosis and other heart disease (20 sources)Coronary atherosclerosis; Translations: [Coronary atherosclerosis of red devil coronary artery]Onset: 628893-64-2652SjdiadkJnrscedo atherosclerosis and other heart disease (3 sources)Presence of coronary angioplasty implant and graft; Translations: [PRESENCE COR ANGPLSTY IMPLANT AND GRAFT]Onset: 10-19-5942NzmrhpziZooluwfyd of lipid metabolism (18 sources)Mixed hyperlipidemia; Translations: [Mixed hyperlipidemia]Onset: 235991-30-5558KxtxfqwAzuodbrpp hypertension (19 sources)Hypertensive disorder; Translations: [Unspecified essential hypertension]Onset: 171662-70-4159LxycobmKhziu valve disorders (2 sources)Rheumatic mitral stenosis; Translations: [Mild mitral valve stenosis] ChronicHyperplasia of prostate (1 source)Benign prostatic hyperplasia with lower urinary tract symptoms; Translations: [BENIGN PROSTATIC HYPERPLASIA W/LUTS]Onset: 79-05-7414Jxrpexm Hypertension with complications and secondary hypertension (13 sources)Hypertensive heart failure; Translations: [Hypertensive heart disease with heart failure]Onset: 890318-98-1429PdxyaonWetuy aftercare (9 sources)Drug therapy finding; Translations: [Long-term (current) use 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]Onset: 702077-47-1922TpwpkkbaPpwaw aftercare (1 source)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; Translations: [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 AND 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 SUPERVISOR CURRNT USE ANTICOAGULANTS]Onset: 15-28-6704ZlvwgrlaVbcbm lower respiratory disease (1 source)Acute respiratory distress; Translations: [ACUTE RESPIRATORY DISTRESS] Onset: 32-45-4013VczqyndxYrgkv nutritional; endocrine; and metabolic disorders (7 sources)Obesity; Translations: [Obesity, unspecified]Onset: 06-06-2023 68-64-1081GoxmudkZnatd nutritional; endocrine; and metabolic disorders (3 sources)Body mass index 30+ - obesity; Translations: [Body Mass Index 38.0- 38.9, adult]ChronicOther nutritional; endocrine; and metabolic disorders (2 sources)Body mass index 40+ - severely obese; Translations: [Morbid obesity] ChronicOther nutritional; endocrine; and metabolic disorders (1 source)Severe obesity; Translations: [Morbid (severe) obesity due to excess calories]82-47-3264BpkerjhIiqpj nutritional; endocrine; and metabolic disorders (2 sources)Morbid (severe) obesity due to excess calories; Translations: [Morbid (severe) obesity due to excess calories (CMS/HCC)]Onset: 21-23-4506MsbayjuJlkie nutritional; endocrine; and metabolic disorders (2 sources)Body mass index (BMI) 40.0-44.9, adult; Translations: [Body mass index (BMI) 40.0-44.9, adult (CMS/HCC)]Onset: 45-67-2694YegderjFjjzd nutritional; endocrine; and metabolic disorders (20 sources)Morbid obesity; Translations: [Morbid (severe) obesity due to excess calories]Onset: 714674-61-1720VwgptvtZlfiv screening for suspected conditions (not mental disorders or infectious disease) (7 sources)Echocardiogram abnormal; Translations: [Nonspecific (abnormal) findings on radiological and other examination of other intrathoracic organs] Onset: 998359-98-5852BtyabldnNygeonixm`s disease (1 source)Parkinson's disease; Translations: [PARKINSONS DISEASE]Onset: 47-68-2740IpwyswhBttedtsa codes; unclassified (8 sources)History of repair of umbilical hernia; Translations: [Other specified postprocedural states]25-07-7097CbfhooqmSevkspnlxadw (1 source)CONTACT W/AND (SUSP) EXPOS COVID-19; Translations: [CONTACT W/AND (SUSP) EXPOS COVID-19]Onset: 44-51-0873Irwppzqbxpbb (2 sources)Other persistent atrial fibrillation; Translations: [Other persistent atrial fibrillation (CMS/HCC)]Onset: 64-76-4700Hwgualjdazqy (1 source)Medical ScreeningOnset: 08-55-8450Qmdvubfqxgdp (1 source)sent by surgeon for admissionOnset: 46-24-9423Gdoglpxdtauf (1 source)Pre-op ExamOnset: 92-17-8734Cxwtriohzcxg (1 source)Wound CheckOnset: 59-96-2652Tmckrevmkgqv (1 source)Post-op ProblemOnset: 24-01-0961Sdgkrirczods (1 source)post op, bleedingOnset: 43-72-7907Ezgvfyf tract infections (1 source)Urinary tract infection, site not specified; Translations: [UTI SITE NOT SPECIFIED]Onset: 00-72-4473Hufurssz Past or Other Problems Problem ClassificationProblemDateDocumented DateEpisodic/ChronicAbdominal hernia (20 sources)Unspecified abdominal hernia with obstruction, without gangrene; Translations: [Other and unspecified ventral hernia with obstruction, without gangrene]Onset: 423499-68-8075KeunmblrAgilqfi dysrhythmias (5 sources)Palpitations; Translations: [PALPITATIONS]Onset: 40-38-8806Teimqozm Complications of surgical procedures or medical care (20 sources)Non-healing surgical wound; Translations: [Other complications of procedures, not elsewhere classified, subsequent encounter]Onset: 03-28-2024 06-37-9903XopzmhblXtsxscvqzn infection (20 sources)Infectious diarrheal disease; Translations: [Infectious gastroenteritis and colitis, unspecified]Onset: 323964-64-1736FoemvacoIaox disorders (20 sources)Mood disordersOnset: Other aftercare (1 source)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; Translations: [OTH ALF CURRENT DRUG THERAPY]Onset: 60-13-6439VjikhbbhRiekv aftercare (20 sources)Long-term current use of anticoagulant; Translations: [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]Onset: 11-03-2020 Resolved: 236449-53-7568XjsjvefhOfzil aftercare (8 sources)Patient encounter status; Translations: [Encounter for therapeutic drug level monitoring]Onset: 062323-91-2676JteiqwuuZreub aftercare (1 source)Encounter for change or removal of surgical wound dressing; Translations: [Encounter for change or removal of surgical wound dressing]Onset: 88-66-5447CcjmlczoMkuud gastrointestinal disorders (1 source)Personal history of other diseases of the digestive system; Translations: [Personal history of other diseases of the digestive system]Onset: 87-05-0352SzuwqqagClhtg lower respiratory disease (3 sources)Shortness of breath; Translations: [SHORTNESS OF BREATH]Onset: 17-65-0231WucipnuxFgnpcecy codes; unclassified (4 sources)Procedure and treatment not carried out due to patient leaving prior to being seen by health care provider; Translations: [PROC AND TX NOT CARRIED OUT PT LEAVE]Onset: 98-45-2743YezargdyYitdclcg codes; unclassified (1 source)Other specified postprocedural states; Translations: [Other specified postprocedural states]Onset: 76-76-9220UparwnwjIvshmowjyyl failure; insufficiency; arrest (adult) (1 source)Acute respiratory failure with hypoxia; Translations: [ACUTE RESPIRATORY FAIL W/HYPOXIA]Onset: 69-03-9485JueukyaeLbeytpukhp (except in labor) (1 source)Sepsis, unspecified organism; Translations: [SEPSIS UNSPECIFIED ORGANISM]Onset: 08-42-3496OlatpcnjQdkc and subcutaneous tissue infections (20 sources)Local infection of the skin and subcutaneous tissue, unspecified; Translations: [Infection of skin]Onset: 953213-81-1142UwuonooaLxephljoeoic (8 sources)Never smoked tobacco; Translations: [Never a smoker]Unclassified (1 source)Onset: 457571-22-6652Hngeqxeojqol (9 sources)Non-healing surgical gbufk57-20-5888Zfbcm infection (20 sources)COVID-19; Translations: [Pneumonia due to other virus not elsewhere classified]Onset: 279781-85-3063Hcxkiqlq Results Test NameValueInterpretationReference RangeFacilityXeroform 4x4on 05-30-2024 Applied in clinic today MANUALLY TRANSCRIBED RESULTSXeroform 0r9Emqvgmc By: Brianne Singh on 05-30-2024 [facility] SystemNo Panel Informationon 68-14-6019Wlhirga in clinic today MANUALLY TRANSCRIBED RESULTSProMedica Health SystemNo Panel Informationon 80-88-8809Rfjdpgd in clinic today MANUALLY TRANSCRIBED RESULTSProMedica Health SystemNo Panel Informationon 13-46-3060Isdsovg in clinic today MANUALLY TRANSCRIBED RESULTSProMedica Health SystemBASIC METABOLIC PANLon 18-19-3831Qfctv gap [Moles/Vol]9 mmol/LNormal5-15[facility] Comment on above:Performed By: #### FEROZ KUMAR, , 2776-06 ####[facility] ([id number])[address] [address] [address] Calcium [Mass/Vol]8.3 mg/dLLow8.5-10.5PHolzer Health SystemComment on above: Performed By: #### FEROZ KUMAR, , 2776-06 ####[facility] ([id number])[address], [place] [address]Cfeqwghu [Moles/Vol]105 mmol/JFbrdtj07-363LjjUnbbvxThe Surgical Hospital at SouthwoodsComment on above:Performed By: #### FEROZ KUMAR, , 2776-06 ####[facility] ([id number])[address] [address], [place] [address]WK9 [Moles/Vol]26 mmol/GInptnk59-21KxgLzpljuHolzer Health SystemComment on above:Performed By: #### FEROZ KUMAR, , 2776-06 ####[facility] ([id number])[address] [address], [place] [address]Piclqclneg [Mass/Vol]0.94 mg/dLNormal0.60-1.30[facility] Comment on above:Result Comment: METHOD TRACEABLE TO IDVA STANDARDPerformed By: #### FEROZ KUMAR, , 2776-06 ####[facility] ([id number])[address] [address], [place] [address]XSR/1.73 sq M.predicted among non-blacks MDRD (S/P/Bld) [Vol rate/Area]86 mL/min/{1.73_m2}Normal>59ProOhio Valley HospitalComment on above:Result Comment: Reported eGFR is based on the CKD-EPI 2020 equation that does not use a race coefficient.Performed By: #### FEROZ KUMAR, , 2776-06 ####[facility] ([id number])[address] [address], [place] [address]Udipmwb [Mass/Vol]100 mg/gTDoxq36-16PypZfwdmx Rosales HospitalComment on above:Performed By: #### JOSÉ, [facility], , 2776-06 ####[facility] ([id number])[address], [place] [address]Ephsxzwxi [Moles/Vol] 4.1 mmol/LNormal3.5-5.0Pro[facility]ica [facility] HospitalComment on above:Performed By: #### JOSÉ, FEROZ, , 2776-06 ####[facility] ([id number])[address] [address], [place] [address]Fzflzk [Moles/Vol]140 mmol/VYltklh676-234 [facility] HospitalComment on above:Performed By: #### JOSÉ, FEROZ, , 2776-06 ####[facility] ([id number])[address] [address], [place] [address]Qbsm nitrogen [Mass/Vol]19 mg/dLNormal5-27ProMedica [facility]ales HospitalComment on above:Performed By: #### FEROZ KUMAR, , 2776-06 ####[facility] ([id number])[address] [address] [address] COMPLETE BLOOD COUNTon 13-64-5390Oackripuvrx distribution width (RBC) [Ratio] 15.0 %Txqhhs64.5-15.0ProMedica [facility]ales HospitalComment on above:Performed By: #### JOSÉ, FEROZ, , 2776-06 ####[facility] ([id number])[address] [address], [place] [address]Kricodkswv (Bld) [Volume fraction]24.9 %Low 39-49Pro[facility]ica [facility]ales HospitalComment on above:Performed By: #### CBC, BMP, , 2776-06 ####[facility] ([id number])[address], [place] [address]Xftymksjnt (Bld) [Mass/Vol]8.2 g/dLLow13.0-17.0 [facility] HospitalComment on above:Performed By: #### CBC, BMP, , 2776-06 ####[facility] ([id number])[address], [address], [place] [address]NVS (RBC) [Entitic mass]25.1 qyWhq97-56EavEopsfa [facility] HospitalComment on above:Performed By: #### JOSÉ, BMP, , 2776-06 ####[facility] ([id number])[address], [address], [place] [address]IDWD (RBC) [Mass/Vol]32.8 g/tFIbvwei37-34GtkUbijsn [facility] HospitalComment on above: Performed By: #### JOSÉ, BMP, , 2776-06 ####[facility] ([id number])[address], [address], [place] [address]BIK (RBC) [Entitic vol]77 wQHkt51-798XdbFsrigf [facility] HospitalComment on above:Performed By: #### CBC, BMP, , 2776-06 ####[facility] ([id number])[address], [address] [address]Edsktefe mean volume (Bld) [Entitic vol]7.6 fL Normal7-12[facility] HospitalComment on above:Performed By: #### CBC, BMP, , 2776-06 ####[facility] ([id number])[address], [address], [place] [address]Qdngalfea (Bld) [#/Vol]251 10*3/hGRlswtn824-478 [facility] HospitalComment on above:Performed By: #### JOSÉ, FEROZ, , 2776-06 ####[facility] ([id number])[address], [address] [place] [address]BCF COUNT3.24 X10E12/LLow4.10-5.70[facility] Comment on above:Performed By: #### JOSÉ, FEROZ, , 2776-06 ####[facility] ([id number])[address], [address] [place] [address]BGH (Bld) [#/Vol]13.1 10*3/uLHigh4.0-11.0ProOhio Valley HospitalComment on above: Performed By: #### FEROZ KUMAR, , 2776-06 ####[facility] ([id number])[address], [address] [place] [address]162IMNMNMCXKdn 02-28-2024 Magnesium [Mass/Vol]2.1 mg/dLNormal1.8-2.6ProOhio Valley HospitalComment on above:Performed By: #### FEROZ KUMAR, , 2776-06 ####[facility] ([id number])[address], [address] [place] [address] 16424KQVOEERESToj 02-28-2024 Phosphate [Mass/Vol]3.4 mg/dLNormal2.4-4.9ProDiley [facility] Medical Center HospitalComment on above:Performed By: #### JOSÉ, FEROZ, , 2776-06 ####[facility] ([id number])[address], [address] [place] [address]WHEFE METABOLIC PANLon 99-75-6952Zchis gap [Moles/Vol]8 mmol/LNormal5-15[facility] Comment on above:Performed By: #### FEROZ KUMAR, , 2776-06 ####[facility] ([id number])[address] [address], [place] [address] Calcium [Mass/Vol]8.3 mg/dLLow8.5-10.5PHolzer Health SystemComment on above: Performed By: #### FEROZ KUMAR, , 2776-06 ####[facility] ([id number])[address] [address] [address]Vpibslxk [Moles/Vol]104 mmol/NAwdkol49-870IagVuxixu [place] HospitalComment on above:Performed By: #### FEROZ KUMAR, , 2776-06 ####[facility] ([id number])[address] [address], [place] [address]HF4 [Moles/Vol]28 mmol/FLbbngg81-20QdnOuoqmv [place] HospitalComment on above:Performed By: #### FEROZ KUMAR, , 2776-06 ####[facility] ([id number])[address] [address], [place] [address]Aczdsxsqmp [Mass/Vol]0.92 mg/dLNormal0.60-1.30[facility] Comment on above:Result Comment: METHOD TRACEABLE TO IDMS STANDARDPerformed By: #### FEROZ KUMAR, , 2776-06 ####[facility] ([id number])[address] [address] [address]BZF/1.73 sq M.predicted among non-blacks MDRD (S/P/Bld) [Vol rate/Area]88 mL/min/{1.73_m2}Normal>59ProOhio Valley HospitalComment on above:Result Comment: Reported eGFR is based on the CKD-EPI 2020 equation that does not use a race coefficient.Performed By: #### FEROZ KUMAR, 24767-32776-06 ####[facility] ([id number])[address], [address], [place] [address]Xshesii [Mass/Vol]97 mg/uZOfquqf56-67OlnPptnob [facility] HospitalComment on above:Performed By: #### JOSÉ, FEROZ, , 2776-06 ####[facility] ([id number])[address], [address], [place] [address]Psayjdbyw [Moles/Vol] 4.1 mmol/LNormal3.5-5.0[facility] HospitalComment on above:Performed By: #### JOSÉ, [facility], , 2776-06 ####[facility] ([id number])[address], [address], [place] [address]Synoep [Moles/Vol]140 mmol/AJsvzbd496-966 [facility] HospitalComment on above:Performed By: #### JOSÉ, FEROZ, , 2776-06 ####[facility] ([id number])[address], [address], [place] [address]Smrn nitrogen [Mass/Vol]23 mg/dLNormal5-27[facility] HospitalComment on above:Performed By: #### FEROZ KUMAR, 2776-06 ####[facility] ([id number])[address], [address] [place] [address] COMPLETE BLOOD COUNTon 37-87-9599Dszctrfvzqr distribution width (RBC) [Ratio] 15.2 %High11.5-15.0[facility] HospitalComment on above:Performed By: #### JOSÉ, FEROZ, , 2776-06 ####[facility] ([id number])[address], [address], [place] [address]Typfigfnql (Bld) [Volume fraction]28.2 %Low 39-49[facility] HospitalComment on above:Performed By: #### JOSÉ, BMP, , 2776-06 ####[facility] ([id number])[address], [address] [address]Zqerzzvvks (Bld) [Mass/Vol]8.9 g/dLLow13.0-17.0 [facility] HospitalComment on above:Performed By: #### CBC, BMP, , 2776-06 ####[facility] ([id number])[address], [address], [place] [address]GIW (RBC) [Entitic mass]24.5 atDte63-04DxpCnwvrf [facility] HospitalComment on above:Performed By: #### JOSÉ, BMP, , 2776-06 ####[facility] ([id number])[address], [address], [place] [address]KPLZ (RBC) [Mass/Vol]31.7 g/hUDjp86-89TaiAgtwdj Silt HospitalComment on above: Performed By: #### JOSÉ, FEROZ, , 2776-06 ####[facility] ([id number])[address], [address], [place] [address]MEN (RBC) [Entitic vol]77 bJAha78-020ZqrNjlbgb [facility]ilt HospitalComment on above:Performed By: #### JOSÉ, BMP, , 2776-06 ####[facility] ([id number])[address], [address] [address]Lschlaiu mean volume (Bld) [Entitic vol]7.6 fL Normal7-12[facility] HospitalComment on above:Performed By: #### CBC, BMP, , 2776-06 ####[facility] ([id number])[address], [address] [address]Krvkpfjvu (Bld) [#/Vol]272 10*3/kXYugvey473-389 ProMFire[facility] HospitalComment on above:Performed By: #### FEROZ KUMAR, , 2776-06 ####[facility] ([id number])[address], [address] [place] [address]SLA COUNT3.64 X10E12/LLow4.10-5.70[facility] Comment on above:Performed By: #### FEROZ KUMAR, , 2776-06 ####[facility] ([id number])[address], [address] [place] [address]UVW (Bld) [#/Vol]15.1 10*3/uLHigh4.0-11.0Pro[facility] HospitalComment on above: Performed By: #### FEROZ KUMAR, , 2776-06 ####[facility] ([id number])[address], [address] [place] [address]KBBCANVJBly 02-27-2024 Magnesium [Mass/Vol]1.8 mg/dLNormal1.8-2.6ProOhio Valley HospitalComment on above:Performed By: #### FEROZ KUMAR, , 2776-06 ####[facility] ([id number])[address], [address] [place] [address]BLVJBBNLTJsx 02-27-2024 Phosphate [Mass/Vol]4.2 mg/dLNormal2.4-4.9Pro[facility] HospitalComment on above:Performed By: #### FEROZ KUMAR, , 2776-06 ####[facility] ([id number])[address], [address] [place] [address]PNJTD METABOLIC PANLon 61-36-0155Aamnl gap [Moles/Vol]10 mmol/LNormal5-15[facility] Comment on above:Performed By: #### FEROZ KUMAR, , 2776-06 ####[facility] ([id number])[address] [address] [address] Calcium [Mass/Vol]8.5 mg/dLNormal8.5-10.5PHolzer Health SystemComment on above:Performed By: #### FEROZ KUMAR, , 2776-06 ####[facility] ([id number])[address] [address], [place] [address]Xrrbnxuy [Moles/Vol]106 mmol/VIgftgy65-251MxuXwrqtt [place] HospitalComment on above:Performed By: #### FEROZ KUMAR, , 2776-06 ####[facility] ([id number])[address] [address], [place] [address]DE9 [Moles/Vol]27 mmol/FNxjikn99-13ZemDrgwrhHolzer Health SystemComment on above:Performed By: #### FERZO KUMAR, , 2776-06 ####[facility] ([id number])[address] [address], [place] [address]Nvsjxjqaum [Mass/Vol]0.91 mg/dLNormal0.60-1.30[facility] Comment on above:Result Comment: METHOD TRACEABLE TO IDMS STANDARDPerformed By: #### FEROZ KUMAR, , 2776-06 ####[facility] ([id number])[address] [address], [place] [address]UQV/1.73 sq M.predicted among non-blacks MDRD (S/P/Bld) [Vol rate/Area]90 mL/min/{1.73_m2}Normal>59ProOhio Valley HospitalComment on above:Result Comment: Reported eGFR is based on the CKD-EPI 2020 equation that does not use a race coefficient.Performed By: #### FEROZ KUMAR, , 2776-06 ####[facility] ([id number])[address], [address], [place] [address]Dfqbdfb [Mass/Vol]87 mg/jUJpcijy66-95YqrTrasyw [facility] HospitalComment on above:Performed By: #### FEROZ KUMAR, , 2776-06 ####[facility] ([id number])[address], [address], [place] [address]Dnhhadcle [Moles/Vol] 4.0 mmol/LNormal3.5-5.0[facility] HospitalComment on above:Performed By: #### FEROZ KUMAR, , 2776-06 ####[facility] ([id number])[address], [address], [place] [address]Xfyurz [Moles/Vol]143 mmol/XJbesrz673-660 [facility] HospitalComment on above:Performed By: #### FEROZ KUMAR, , 2776-06 ####[facility] ([id number])[address], [address], [place] [address]Phad nitrogen [Mass/Vol]26 mg/dLNormal5-27[facility] HospitalComment on above:Performed By: #### FEROZ KUMAR, , 2776-06 ####[facility] ([id number])[address], [address] [place] [address] COMPLETE BLOOD COUNTon 56-38-4267Lhqcmgjsagq distribution width (RBC) [Ratio] 15.4 %High11.5-15.0[facility] HospitalComment on above:Performed By: #### FEROZ ORTIZ, PINR, 92593-1 #### [facility] ([id number]) [address], [address] [place], [place] [address]Hgpehyzmix (Bld) [Volume fraction]32.9 %Kuk18-06MhdKttqmt [facility] HospitalComment on above:Performed By: #### CBCFrancisco, BMP, PINR, 05265-0 #### [facility] ([id number]) [address], [address] [place], [place] [address]Cbaflvawnd (Bld) [Mass/Vol]10.3 g/dLLow13.0-17.0[facility] SouthwoodsComment on above:Performed By: #### CBCA, BMP, PINR, 32649-7 #### [facility] ([id number]) [address], [address] [place], [place] [address]FET (RBC) [Entitic mass]24.5 smVgz63-73TkdMwhqriThe [facility] Hospital [facility] Comment on above:Performed By: #### CBCA, BMP, PINR, 63478-0 #### [facility] ([id number]) [address], [address] [place], [place] [address]LVYU (RBC) [Mass/Vol]31.3 g/lSZrz34-05DytKgiduhThe [facility] Hospital [facility] Comment on above:Performed By: #### CBCA, BMP, PINR, 22049-9 #### [facility] ([id number]) [address], [address] [place], [place] [address]QQV (RBC) [Entitic vol]78 hYIcz05-828FhjTjthnhThe [facility] Comment on above:Performed By: #### CBCA, BMP, PINR, 80041-5 #### [facility] ([id number]) [address], [address] [place], [place] [address]Ahsqgqtc mean volume (Bld) [Entitic vol]7.9 fLNormal7-12 ProMCherrington HospitalComment on above:Performed By: #### CBCA, BMP, PINR, 12585-6 #### [facility] ([id number]) [address], [address] [place], [place] [address]Vkmunljlt (Bld) [#/Vol]249 10*3/iEVybuat788-073MpwLoehtk [facility] HospitalComment on above:Performed By: #### CBCA, BMP, PINR, 78894-9 #### [facility] ([id number]) [address], [address] [place], [place] [address]HDU COUNT4.21 X10E12/LNormal4.10-5.70ProGalion Hospitalca [facility] Comment on above:Performed By: #### CBCA, BMP, PINR, 52830-4 #### [facility] ([id number]) [address], [address] [place], [place] [address]WZU (Bld) [#/Vol]12.7 10*3/uLHigh4.0-11.0[facility] HospitalComment on above:Performed By: #### CBCFrancisco, BMP, PINR, 09339-7 #### [facility] ([id number]) [address], [address] [place], [place] [address]NSAEWDLIFei 18-13-6310Biyyrbyot [Mass/Vol]2.0 mg/dLNormal1.8-2.6 [facility] HospitalComment on above:Performed By: #### FEROZ KUMAR, , 2777-1 ####[facility] ([id number])[address], [address], [place] [address]ZMCWOBGPBDxf 90-63-4483Wwfyzavaw [Mass/Vol]3.7 mg/dLNormal 2.4-4.9ProGalion Hospitalca [facility] HospitalComment on above:Performed By: #### JOSÉ, BMP, , 2777-1 ####[facility] ([id number])[address], [address], [place] [address]DBZOC METABOLIC PANLon 70-60-2756Edyba gap [Moles/Vol]8 mmol/LNormal5-15[facility] HospitalComment on above:Performed By: #### CBCA, BMP, PINR, 24150-5 #### [facility] ([id number]) [address], [address] [place], [place] [address]Wnktula [Mass/Vol]8.5 mg/dLNormal8.5-10.5PHolzer Health SystemComment on above:Performed By: #### CBCA, BMP, PINR, 74883-7 #### [facility] ([id number]) [address], [address] [place], [place] [address]Erzwjdsb [Moles/Vol]108 mmol/IRfxnnu03-287YnrPuhbwc [place] HospitalComment on above:Performed By: #### CBCA, BMP, PINR, 23916-5 #### [facility] ([id number]) [address], [address] [place], [place] [address]NW5 [Moles/Vol]27 mmol/TFbrpli26-73PrkEdhfxu [facility] Comment on above:Performed By: #### CBCA, BMP, PINR, 34496-1 #### [facility] ([id number]) [address], [address] [place], [place] [address]Euxqdyrlux [Mass/Vol]1.02 mg/dLNormal0.60-1.30ProOhio Valley HospitalComment on above:Result Comment: METHOD TRACEABLE TO IDMS STANDARD Performed By: #### CBCA, BMP, PINR, 53953-3 #### [facility] ([id number]) [address], [address] [place], [place] [address]XHZ/1.73 sq M.predicted among non-blacks MDRD (S/P/Bld) [Vol rate/Area]78 mL/min/{1.73_m2}Normal>59ProOhio Valley HospitalComment on above: Result Comment: Reported eGFR is based on the CKD-EPI 2020 equation that does not use a race coefficient.Performed By: #### CBCA, BMP, PINR, 27574-3 #### [facility] ([id number]) [address], [address] [place], [place] [address]Ppwysrn [Mass/Vol]121 mg/vYSqoe03-26PvpBbbxyd [facility] Comment on above:Performed By: #### CBCFrancisco, BMP, PINR, 03261-5 #### [facility] ([id number]) [address], [facility] [address] [place], [place] [address]Kcifgxwjo [Moles/Vol]4.3 mmol/LNormal3.5-5.0[facility] HospitalComment on above:Performed By: #### CBCA, BMP, PINR, 10460-5 #### [facility] ([id number]) [address], [facility] [address] [place], [place] [address]Wblkxd [Moles/Vol]143 mmol/ETydnox199-712OdhHktuls [facility] HospitalComment on above:Performed By: #### CBCA, BMP, PINR, 02133-6 #### [facility] ([id number]) [address], [address] [address]Bwru nitrogen [Mass/Vol]27 mg/dLNormal5-27ProGalion Hospitalca [facility] HospitalComment on above:Performed By: #### CBCA, BMP, PINR, 78395-0 #### [facility] ([id number]) [address], [address] [address]ZNFJDAGO BLOOD COUNTon 41-90-3441Ryodofnoixt distribution width (RBC) [Ratio]15.5 %High11.5-15.0ProGalion Hospitalca [facility]ilt HospitalComment on above: Performed By: #### CBCA, BMP, PINR, 63202-8 #### [facility] ([id number]) [address] [address] [place], [place] [address]Xhshnntupk (Bld) [Volume fraction]33.7 %Lyi85-21PflJzdwjd [facility] HospitalComment on above:Performed By: #### CBCA, BMP, PINR, 60319-4 #### [facility] ([id number]) [address], [address] [place], [place] [address]Vqqeidthuo (Bld) [Mass/Vol]10.9 g/dLLow13.0-17.0[facility] HospitalComment on above:Performed By: #### CBCA, BMP, PINR, 25431-9 #### [facility] ([id number]) [address], [address] [place], [place] [address]EZZ (RBC) [Entitic mass]25.2 qnWvb16-25FfyMzmohhThe [facility] Comment on above:Performed By: #### CBCA, BMP, PINR, 97577-2 #### [facility] ([id number]) [address], [address] [place], [place] [address]RXSA (RBC) [Mass/Vol]32.4 g/uZEzmsim05-28AvzBsalhp [place] HospitalComment on above:Performed By: #### CBCA, BMP, PINR, 60073-9 #### [facility] ([id number]) [address], [address] [place], [place] [address]OBB (RBC) [Entitic vol]78 zXUqd26-365IuwLlvspuThe [facility] Hospital [facility] Comment on above:Performed By: #### CBCA, BMP, PINR, 11246-5 #### [facility] ([id number]) [address], [address] [place], [place] [address]Zbmbkvot mean volume (Bld) [Entitic vol]7.6 fLNormal7-12 ProMedicKettering Health Dayton HospitalComment on above:Performed By: #### CBCA, BMP, PINR, 08983-3 #### [facility] ([id number]) [address], [address] [place], [place] [address]Elxhikicv (Bld) [#/Vol]242 10*3/jIUynyye846-062OqnUqfnxa [place] HospitalComment on above:Performed By: #### CBCA, BMP, PINR, 24674-8 #### [facility] ([id number]) [address], [address] [place], [place] [address]LMU COUNT4.33 X10E12/LNormal4.10-5.70ProD[facility] Comment on above:Performed By: #### CBCA, BMP, PINR, 00050-1 #### [facility] ([id number]) [address], [address] [place], [place] [address]XND (Bld) [#/Vol]11.7 10*3/uLHigh4.0-11.0ProGalion Hospitalca [facility] HospitalComment on above:Performed By: #### CBCA, BMP, PINR, 33759-7 #### [facility] ([id number]) [address], [address] [place], [place] [address]IPXLSCTPEjx 87-29-4630Ryxxhuxow [Mass/Vol]2.3 mg/dLNormal1.8-2.6 [facility] HospitalComment on above:Performed By: #### CBCA, BMP, PINR, 92500-6 #### [facility] ([id number]) [address] [address] [place], [place] [address]LBXIYULMKFkr 39-03-4785Jyxdzujbb [Mass/Vol]3.1 mg/dLNormal 2.4-4.9ProOhio Valley HospitalComment on above:Performed By: #### CBCA, BMP, PINR, 76368-4 #### [facility] ([id number]) [address], [address] [place], [place] [address]IKDRP METABOLIC PANLon 10-87-6299Rcybk gap [Moles/Vol]8 mmol/L Normal5-15ProDiley Ridge [facility] HospitalComment on above:Performed By: #### CBCA, BMP, PINR, 43753-7 #### [facility] ([id number]) [address], [address] [place], [place] [address]Xbnqmuh [Mass/Vol]8.8 mg/dLNormal8.5-10.5PHolzer Health SystemComment on above:Performed By: #### FEROZ ORTIZ, PINR, 72210-3 #### [facility] ([id number]) [address], [address] [place], [place] [address]Pckhacak [Moles/Vol]107 mmol/AMinedi82-814BvjYsupfx [place] HospitalComment on above:Performed By: #### ANGEL, FEROZ, PINR, 43920-0 #### [facility] ([id number]) [address], [address] [place], [place] [address]UA0 [Moles/Vol]25 mmol/QOvrxkm68-11AnbBwsqcgHolzer Health System Comment on above:Performed By: #### FEROZ ORTIZ, PINR, 89738-1 #### [facility] ([id number]) [address], [address] [place], [place] [address]Aajvprqplw [Mass/Vol]0.97 mg/dLNormal0.60-1.30ProOhio Valley HospitalComment on above:Result Comment: METHOD TRACEABLE TO IDMS STANDARD Performed By: #### ANGEL, FEROZ, PINR, 74584-3 #### [facility] ([id number]) [address], [address] [place], [place] [address]MEP/1.73 sq M.predicted among non-blacks MDRD (S/P/Bld) [Vol rate/Area]83 mL/min/{1.73_m2}Normal>59ProOhio Valley HospitalComment on above: Result Comment: Reported eGFR is based on the CKD-EPI 2020 equation that does not use a race coefficient.Performed By: #### ANGEL, FEROZ, PINR, 32418-8 #### [facility] ([id number]) [address], [address] [place], [place] [address]Nootcwh [Mass/Vol]136 mg/wQMamn46-70YliBqbffx [facility] Comment on above:Performed By: #### CBCA, BMP, PINR, 89518-8 #### [facility] ([id number]) [address], [address] [place], [place] [address]Ykyviodhw [Moles/Vol]4.5 mmol/LNormal3.5-5.0ProDiley Ridge Medical Center HospitalComment on above:Performed By: #### CBCA, BMP, PINR, 72453-9 #### [facility] ([id number]) [address], [address] [place], [place] [address]Ddbbio [Moles/Vol]140 mmol/NSnkjaf680-490TwrVcvcwi [place] HospitalComment on above:Performed By: #### CBCA, BMP, PINR, 17312-0 #### [facility] ([id number]) [address], [facility] [address] [place], [place] [address]Kbcn nitrogen [Mass/Vol]27 mg/dLNormal5-27ProDiley Ridge Medical Center HospitalComment on above:Performed By: #### CBCA, BMP, PINR, 62335-5 #### [facility] ([id number]) [address] [address] [place], [place] [address]HVRLTKAU BLOOD COUNTon 82-85-3610Cammmwzqvmp distribution width (RBC) [Ratio]15.4 %High11.5-15.0ProDiley Ridge Medical Center HospitalComment on above: Performed By: #### CBCA, BMP, PINR, 13169-5 #### [facility] ([id number]) [address], [address] [place], [place] [address]Onoaletbqs (Bld) [Volume fraction]33.2 %Hsm15-91BudMbtcgh [place] HospitalComment on above:Performed By: #### CBCA, BMP, PINR, 05156-6 #### [facility] ([id number]) [address], [address] [place], [place] [address]Cejpbahdya (Bld) [Mass/Vol]10.6 g/dLLow13.0-17.0The Surgical Hospital at SouthwoodsComment on above:Performed By: #### CBCA, BMP, PINR, 51535-1 #### [facility] ([id number]) [address], [address] [place], [place] [address]ZPR (RBC) [Entitic mass]24.7 gcKks82-73DqfGsxoowThe Surgical Hospital at Southwoods Comment on above:Performed By: #### CBCA, BMP, PINR, 09518-5 #### [facility] ([id number]) [address], [address] [place], [place] [address]UNAV (RBC) [Mass/Vol]32.0 g/fIHepeks54-61WqoUumanc [place] HospitalComment on above:Performed By: #### CBCA, BMP, PINR, 50121-1 #### [facility] ([id number]) [address], [address] [place], [place] [address]MWL (RBC) [Entitic vol]77 xDDxz51-399FlcGoklaoThe Surgical Hospital at Southwoods Comment on above:Performed By: #### CBCA, BMP, PINR, 29001-5 #### [facility] ([id number]) [address], [address] [place], [place] [address]Apzzduii mean volume (Bld) [Entitic vol]7.6 fLNormal7-12 ProMedicKettering Health Dayton HospitalComment on above:Performed By: #### CBCA, BMP, PINR, 22676-6 #### [facility] ([id number]) [address], [address] [place], [place] [address]Dyabuegkc (Bld) [#/Vol]236 10*3/hHGdysrf073-492AcpWubvws [place] HospitalComment on above:Performed By: #### CBCA, BMP, PINR, 17013-1 #### [facility] ([id number]) [address], [address] [place], [place] [address]UQI COUNT4.30 X10E12/LNormal4.10-5.70[facility] Comment on above:Performed By: #### CBCFrancisco, FEROZ, PINR, 90722-9 #### [facility] ([id number]) [address], [facility] [address] [place], [place] [address]FUO (Bld) [#/Vol]12.8 10*3/uLHigh4.0-11.0[facility] HospitalComment on above:Performed By: #### CBCFrancisco, FEROZ, PINR, 49608-2 #### [facility] ([id number]) [address], [address] [address]KMOLEHJTXte 41-60-6975Mnqogxgqy [Mass/Vol]2.3 mg/dLNormal1.8-2.6 [facility] HospitalComment on above:Performed By: #### CBCFrancisco, BMP, PINR, 81287-9 #### [facility] ([id number]) [address] [address]PAXTCWAQZIzv 55-84-2275Taaabqqii [Mass/Vol]2.9 mg/dLNormal 2.4-4.9ProGalion Hospitalca Silt HospitalComment on above:Performed By: #### CBCFrancisco, FEROZ, PINR, 86626-0 #### [facility] ([id number]) [address], [address] [address]ORDSW METABOLIC PANLon 71-35-7993Dbnja gap [Moles/Vol]8 mmol/L Normal5-15[facility] HospitalComment on above:Performed By: #### CBCA, BMP, PINR, 44961-9 #### [facility] ([id number]) [address], [address] [place], [place] [address]Ojjpgnl [Mass/Vol]8.6 mg/dLNormal8.5-10.5[facility] HospitalComment on above:Performed By: #### ANGEL, FEROZ, PINR, 90104-7 #### [facility] ([id number]) [address], [address] [place], [place] [address]Aiimpwpz [Moles/Vol]107 mmol/VIbfpvc33-881GqgImbfbl [place] HospitalComment on above:Performed By: #### CBCFrancisco, FEROZ, PINR, 10849-5 #### [facility] ([id number]) [address], [address] [place], [place] [address]UG1 [Moles/Vol]27 mmol/AFdmlcb93-56UtqCsfhyjHolzer Health System Comment on above:Performed By: #### ANGEL, FEROZ, PINR, 37646-4 #### [facility] ([id number]) [address], [address] [place], [place] [address]Knbtljorim [Mass/Vol]0.94 mg/dLNormal0.60-1.30ProOhio Valley HospitalComment on above:Result Comment: METHOD TRACEABLE TO IDMS STANDARD Performed By: #### ANGEL, FEROZ, PINR, 72632-0 #### [facility] ([id number]) [address], [address] [place], [place] [address]COK/1.73 sq M.predicted among non-blacks MDRD (S/P/Bld) [Vol rate/Area]86 mL/min/{1.73_m2}Normal>59ProOhio Valley HospitalComment on above: Result Comment: Reported eGFR is based on the CKD-EPI 1 equation that does not use a race coefficient.Performed By: #### ANGEL, FEROZ, PINR, 11461-1 #### [facility] ([id number]) [address], [address] [place], [place] [address]Gbpyuha [Mass/Vol]133 mg/lXVcim61-63EawBflyqeThe [facility] Comment on above:Performed By: #### CBCA, BMP, PINR, 47746-6 #### [facility] ([id number]) [address], [address] [place], [place] [address]Fifliodty [Moles/Vol]4.6 mmol/LNormal3.5-5.0[facility] HospitalComment on above:Performed By: #### CBCA, BMP, PINR, 96176-8 #### [facility] ([id number]) [address], [address] [place], [place] [address]Ftxeog [Moles/Vol]142 mmol/GQnnxkw946-600YdoVmaoxp [facility] HospitalComment on above:Performed By: #### CBCA, BMP, PINR, 87837-8 #### [facility] ([id number]) [address], [facility] [address] [place], [place] [address]Gwiu nitrogen [Mass/Vol]22 mg/dLNormal5-27[facility] HospitalComment on above:Performed By: #### CBCA, BMP, PINR, 15238-2 #### [facility] ([id number]) [address] [address] [place], [place] [address]BGGWMCRA BLOOD COUNTon 59-36-0902Asbusrfvlum distribution width (RBC) [Ratio]15.4 %High11.5-15.0[facility] HospitalComment on above: Performed By: #### CBCA, BMP, PINR, 24109-4 #### [facility] ([id number]) [address], [address] [place], [place] [address]Hfolushvwp (Bld) [Volume fraction]36.8 %Jnl43-16ZxkUsnqgv [facility] HospitalComment on above:Performed By: #### CBCA, BMP, PINR, 30494-7 #### [facility] ([id number]) [address], [address] [place], [place] [address]Vlrvybswoh (Bld) [Mass/Vol]11.5 g/dLLow13.0-17.0[facility] HospitalComment on above:Performed By: #### CBCA, BMP, PINR, 83970-5 #### [facility] ([id number]) [address], [address] [place], [place] [address]ZDT (RBC) [Entitic mass]24.7 alIvm43-85TmkEwmqddThe [facility] Hospital [facility] Comment on above:Performed By: #### CBCA, BMP, PINR, 79672-4 #### [facility] ([id number]) [address], [address] [place], [place] [address]NREQ (RBC) [Mass/Vol]31.4 g/cTOfn73-16FviIbqegwThe Surgical Hospital [facility] Comment on above:Performed By: #### CBCA, BMP, PINR, 62857-5 #### [facility] ([id number]) [address], [address] [place], [place] [address]ELG (RBC) [Entitic vol]79 mZPsn53-378BwnSflmwlThe [facility] Hospital [facility] Comment on above:Performed By: #### CBCA, BMP, PINR, 46485-4 #### [facility] ([id number]) [address], [address] [place], [place] [address]Vezommug mean volume (Bld) [Entitic vol]7.4 fLNormal7-12 The [facility] Hospital at SouthwoodsComment on above:Performed By: #### CBCA, BMP, PINR, 35808-2 #### [facility] ([id number]) [address], [address] [place], [place] [address]Lvhbxhcfo (Bld) [#/Vol]243 10*3/wWZoixlj665-011UlbAeeczy [place] HospitalComment on above:Performed By: #### CBCA, BMP, PINR, 80465-1 #### [facility] ([id number]) [address], [address] [place], [place] [address]PTE COUNT4.67 X10E12/LNormal4.10-5.70[facility] Comment on above:Performed By: #### CBCFrancisco, BMP, PINR, 75342-7 #### [facility] ([id number]) [address], [address] [place], [place] [address]XVA (Bld) [#/Vol]7.7 10*3/uLNormal4.0-11.0[facility] HospitalComment on above:Performed By: #### CBCA, BMP, PINR, 01914-3 #### [facility] ([id number]) [address], [address] [place], [place] [address]XQVVANUOPlr 87-75-0575Rtfnpybzd [Mass/Vol]2.2 mg/dLNormal1.8-2.6 [facility] HospitalComment on above:Performed By: #### CBCFrancisco, BMP, PINR, 22365-7 #### [facility] ([id number]) [address], [address] [place], [place] [address]OIXETYNDMXgg 19-22-9570Zmlmobjxy [Mass/Vol]3.7 mg/dLNormal 2.4-4.9ProGalion Hospitalca [facility] HospitalComment on above:Performed By: #### CBCA, BMP, PINR, 51814-3 #### [facility] ([id number]) [address], [address] [place], [place] [address]ZWFTCCTG CULTUREon 39-97-7541Tgsvufgw identified Anaer cx Nom (Unsp spec)SPECIMEN NOTES UMBILICAL CULTURE RESULTS NO GROWTH 5 DAYSNormalProMedica Silt HospitalComment on above:Performed By: #### CBCA, BMP, PINR, 85900-4 #### [facility] ([id number]) [address], [address] [place], [place] [address]IKKKE METABOLIC PANLon 16-07-3590Rclmq gap [Moles/Vol]7 mmol/L Normal5-15[facility] HospitalComment on above:Performed By: #### CBCA, BMP, PINR, 53223-6 #### [facility] ([id number]) [address], [address] [place], [place] [address]Obqempj [Mass/Vol]8.2 mg/dLLow8.5-10.5PHolzer Health System Comment on above:Performed By: #### CBCA, BMP, PINR, 66876-3 #### [facility] ([id number]) [address], [address] [place], [place] [address]Kgnxvsmd [Moles/Vol]106 mmol/TNoemnt49-667NwkGlhzxs [place] HospitalComment on above:Performed By: #### CBCA, BMP, PINR, 33105-4 #### [facility] ([id number]) [address], [address] [place], [place] [address]SL9 [Moles/Vol]26 mmol/LIdkwes97-42GngWtxgtoHolzer Health System Comment on above:Performed By: #### CBCA, BMP, PINR, 29441-2 #### [facility] ([id number]) [address], [address] [place], [place] [address]Juqahbtmkc [Mass/Vol]0.97 mg/dLNormal0.60-1.30ProOhio Valley HospitalComment on above:Result Comment: METHOD TRACEABLE TO IDMS STANDARD Performed By: #### CBCA, BMP, PINR, 97737-5 #### [facility] ([id number]) [address] [address] [place], [place] [address]SVI/1.73 sq M.predicted among non-blacks MDRD (S/P/Bld) [Vol rate/Area]83 mL/min/{1.73_m2}Normal>59ProOhio Valley HospitalComment on above: Result Comment: Reported eGFR is based on the CKD-EPI 2020 equation that does not use a race coefficient.Performed By: #### CBCA, BMP, PINR, 23242-1 #### [facility] ([id number]) [address] [address] [place], [place] [address]Wryjjws [Mass/Vol]139 mg/wKXtob06-93PyjPmvfkk [facility] Comment on above:Performed By: #### CBCFrancisco, BMP, PINR, 48161-8 #### [facility] ([id number]) [address] [address] [place], [place] [address]Zxvdxjyqd [Moles/Vol]4.0 mmol/LNormal3.5-5.0ProGalion Hospitalca [facility] HospitalComment on above:Performed By: #### CBCA, BMP, PINR, 41291-2 #### [facility] ([id number]) [address] [address] [place], [place] [address]Nhhzjd [Moles/Vol]139 mmol/IBhwgff930-781WszGzoydx [place] HospitalComment on above:Performed By: #### CBCA, BMP, PINR, 42657-7 #### [facility] ([id number]) [address] [address] [place], [place] [address]Optl nitrogen [Mass/Vol]21 mg/dLNormal5-27ProDiley Ridge Medical Center HospitalComment on above:Performed By: #### CBCA, BMP, PINR, 95371-9 #### [facility] ([id number]) [address] [address] [place], [place] [address]VNXJGKKM BLOOD COUNTon 63-61-7966Iikwptyficv distribution width (RBC) [Ratio]15.0 %Xnoxab39.5-15.0ProDiley Ridge Medical Center HospitalComment on above: Performed By: #### CBCA, BMP, PINR, 85508-0 #### [facility] ([id number]) [address] [address] [place], [place] [address]Bkyedetqgz (Bld) [Volume fraction]34.9 %Cqj50-28UniDnxdbo [place] HospitalComment on above:Performed By: #### CBCA, BMP, PINR, 09566-3 #### [facility] ([id number]) [address], [address] [place], [place] [address]Demcnqmnwu (Bld) [Mass/Vol]11.3 g/dLLow13.0-17.0The [facility] Hospital at SouthwoodsComment on above:Performed By: #### CBCA, BMP, PINR, 31397-0 #### [facility] ([id number]) [address], [address] [place], [place] [address]ZON (RBC) [Entitic mass]25.4 rxHsm59-62KmcVusuryThe Surgical Hospital [facility] Comment on above:Performed By: #### CBCA, BMP, PINR, 82143-3 #### [facility] ([id number]) [address], [address] [place], [place] [address]TQVN (RBC) [Mass/Vol]32.5 g/hFAwlebt90-12YbfZdlzvz [place] HospitalComment on above:Performed By: #### CBCA, BMP, PINR, 24782-1 #### [facility] ([id number]) [address], [address] [place], [place] [address]ZYH (RBC) [Entitic vol]78 oOVvi17-206AmaCblriaThe [facility] Hospital [facility] Comment on above:Performed By: #### CBCA, BMP, PINR, 21316-7 #### [facility] ([id number]) [address], [address] [place], [place] [address]Fmjbymuo mean volume (Bld) [Entitic vol]7.1 fLNormal7-12 [facility] HospitalComment on above:Performed By: #### CBCA, BMP, PINR, 68009-8 #### [facility] ([id number]) [address], [address] [place], [place] [address]Vlvzspnau (Bld) [#/Vol]232 10*3/jANptzlm700-348CfbDvzxah [place] HospitalComment on above:Performed By: #### CBCFrancisco, FEROZ, PINR, 26467-2 #### [facility] ([id number]) [address], [address] [place], [place] [address]HUB COUNT4.46 X10E12/LNormal4.10-5.70[facility] Comment on above:Performed By: #### CBCFrancisco, FEROZ, PINR, 06618-6 #### [facility] ([id number]) [address], [address] [place] [address]EGK (Bld) [#/Vol]7.6 10*3/uLNormal4.0-11.0ProOhio Valley HospitalComment on above:Performed By: #### CBCFrancisco, FEROZ, PINR, 68922-6 #### [facility] ([id number]) [address], [address] [place] [address]SUAWXV CULTUREon 82-21-6792Cotdry identified Cx Nom (Unsp spec) SPECIMEN NOTES UMBILICAL FUNGAL SMEAR NO FUNGAL ELEMENTS SEEN ON DIRECT SMEAR CULTURE RESULTS NO FUNGUS ISOLATED AFTER 1 WEEKNormalThe Surgical Hospital at SouthwoodsComment on above: Performed By: #### ANGEL, FEROZ, PINR, 13474-4 #### [facility] ([id number]) [address], [address] [place] [address]Tfhbsmp unfractionated Chromogenic method Qn (PPP)on 02-22-2024 ANTI XA UFH0.47 IU/mLNormal0.30-0.70The [facility] Hospital at SouthwoodsComment on above: Result Comment: Optimal time for testing is 6 hrs post dosage This test is specific for monitoring patients on UFH, and is not recommended for use with other Anti-Xa medications.Performed By: #### CBCA, BMP, PINR, 38024-7 #### [facility] ([id number]) [address], [address] [place], [place] [address]SKQCLLNPTmi 39-60-2383Sgenddryg [Mass/Vol]1.9 mg/dLNormal1.8-2.6 [facility] HospitalComment on above:Performed By: #### CBCA, BMP, PINR, 29988-0 #### [facility] ([id number]) [address] [place] [address], [address] [place], [place] [address]QKXPNPLRXMhl 02-03-2905Iurysixwo [Mass/Vol]4.0 mg/dLNormal 2.4-4.9ProGalion Hospitalca [facility] HospitalComment on above:Performed By: #### CBCA, BMP, PINR, 87018-2 #### [facility] ([id number]) [address] [facility], [address] [place], [place] [address]Bwlrgsgx Pathologyon 41-50-9330Ebnsaven PathologyNormalProOhio Valley HospitalComment on above:Result Comment: [facility] [address] [place] [address] Surgical Pathology Consultation Patient Name:LINO PETERS JR.:1950 (Age: 73)Gender:MTaken:4Reported:4Physician(s):Brandon Rendon M.D. ([phone])Copy To: Rec. #:[id number]: # [id number] Final Pathologic Diagnosis 1. Umbilical skin, excision: Benign skin showing mild to moderate acute and chronic inflammation involving superficial dermis, accompanied by granulation tissue, fibrosis and epidermal pseudoepitheliomatous hyperplasia with parakeratosis. 2. Omentum, omentectomy: Benign omental fatty tissue with congestion and focal interstitial hemorrhage. Report Electronically Signed Out ao/4Aishan Orozco MD Interpretation performed at [facility], [address] [place] [address], License number: [id number]. Clinical History Umbilical hernia. Gross Description 1. Received in formalin, labeled LORRAINE, umbilical skin is a 25 x 13.5 x 2 cm on oriented skin ellipse. The cutaneous surface is darkly pigmented and entirely brown-pedraza, nodular and scaling. Thereis a centrally located 2.5 x 1.5 cm possible distorted umbilicus. Mink Rancher sections are submitted in 1 cassette. (1, ss, [id number] -1, m1) MW 2. Received in formalin, labeled LORRAINE, omentum is a 21 x 13 x 4.2 cm aggregate of yellow, lobulated fat. Sectioning demonstrates homogeneous cut surfaces. Mink Rancher sections are submitted in 1 cassette. (1, ss, [id number] -2, m1) MW mxw/02/26/2024GR Specimen(s) Received 1: Umbilical skin 2: Omentum Fee Codes(s): 1; 25309 2; [address]FNKTGP CULTUREon 85-70-1472Xnzbzouh identified Aer cx Nom (Tiss)SPECIMEN NOTES UMBILICAL GRAM STAIN >25 WHITE BLOOD CELLS/LPF 0 SQUAMOUS EPITHELIAL CELLS/LPF NO ORGANISMS SEEN CULTURE RESULTS NO GROWTH 3 DAYSNormalProMedica Silt HospitalComment on above:Performed By: #### CBCA, BMP, PINR, 45035-7 #### [facility] ([id number]) [address], [address] [place], [place] [address]Ymofzyppxk trough [Mass/Vol]on 49-07-1055GSMRMZTANC VAOCMM21.7 ug/mLNormal5.0-20.0Pro[facility]ica [facility] HospitalComment on above:Performed By: #### CBCA, BMP, PINR, 12718-5 #### [facility] ([id number]) [address], [address] [place], [place] [address]DYPDI METABOLIC PANLon 90-15-3294Pdlgz gap [Moles/Vol]9 mmol/L Normal5-15[facility] HospitalComment on above:Performed By: #### CBC, BMP, LIVR, 12493-2, 2777-1, 22178-0 #### [facility] ([id number]) [address], [address] [place], [place] [address]Bqwirhu [Mass/Vol]8.5 mg/dLNormal8.5-10.5PHolzer Health SystemComment on above:Performed By: #### CBC, BMP, LIVR, 15164-4, 7-1, 26331-5 #### [facility] ([id number]) [address], [address] [place], [place] [address]Uhpcjljz [Moles/Vol]105 mmol/GOmyxrp00-695DglCjoyho [place] HospitalComment on above:Performed By: #### CBC, BMP, LIVR, 46864-3, 7-1, 45583-6 #### [facility] ([id number]) [address], [address] [place], [place] [address]AH1 [Moles/Vol]27 mmol/NHbtbao56-01KinYixpujHolzer Health System Comment on above:Performed By: #### CBC, BMP, LIVR, 66160-9, 2776-, 43602-8 #### [facility] ([id number]) [address], [address] [place], [place] [address]Ewffhrujgh [Mass/Vol]0.97 mg/dLNormal0.60-1.30ProOhio Valley HospitalComment on above:Result Comment: METHOD TRACEABLE TO IDMS STANDARD Performed By: #### CBC, BMP, LIVR, 38541-8, 2776-1, 63405-6 #### [facility] ([id number]) [address], [address] [place], [place] [address]UTQ/1.73 sq M.predicted among non-blacks MDRD (S/P/Bld) [Vol rate/Area]83 mL/min/{1.73_m2}Normal>59ProOhio Valley HospitalComment on above: Result Comment: Reported eGFR is based on the CKD-EPI 2020 equation that does not use a race coefficient.Performed By: #### CBC, BMP, LIVR, 73193-1, 2777-1, 50098-7 #### [facility] ([id number]) [address], [address] [place], [place] [address]Stykuar [Mass/Vol]92 mg/kYRyutbz84-85BblKaocme [facility] Comment on above:Performed By: #### CBC, BMP, LIVR, 64662-3, 2776-, 67384-1 #### [facility] ([id number]) [address], [address] [place], [place] [address]Jidgdzpgn [Moles/Vol]4.2 mmol/LNormal3.5-5.0ProGalion Hospitalca Silt HospitalComment on above:Performed By: #### CBC, BMP, LIVR, 24896-8, 2776-06, 54942-4 #### [facility] ([id number]) [address], [address] [place], [place] [address]Kjjlqz [Moles/Vol]141 mmol/CXmchqm682-669MizAryjfj [place] HospitalComment on above:Performed By: #### CBC, BMP, LIVR, , 2776-06, 54854-8 #### [facility] ([id number]) [address] [place], [place] [address]Mmxe nitrogen [Mass/Vol]15 mg/dLNormal5-27ProDiley Ridge Medical Center HospitalComment on above:Performed By: #### CBC, BMP, LIVR, 06438-3, 2776-06, 50803-8 #### [facility] ([id number]) [address], [address] [place] [address]JESWERIQ BLOOD COUNTon 68-20-5842Cczdkdjigxv distribution width (RBC) [Ratio]14.8 %Oalqvy43.5-15.0ProOhio Valley HospitalComment on above: Performed By: #### CBC, BMP, LIVR, 32319-0, 2776-, 91775-1 #### [facility] ([id number]) [address], [address] [place], [place] [address]Pguepuhcvz (Bld) [Volume fraction]37.3 %Fmg59-52HgrYulgdhOhio Valley HospitalComment on above:Performed By: #### CBC, BMP, LIVR, 05783-1, 2776-, 78106-6 #### [facility] ([id number]) [address], [address] [place], [place] [address]Lckxpfffnd (Bld) [Mass/Vol]12.0 g/dLLow13.0-17.0ProDiley Ridge Medical Center HospitalComment on above:Performed By: #### CBC, BMP, LIVR, 62508-4, 2776-, 38756-6 #### [facility] ([id number]) [address] [place], [place] [address]BHC (RBC) [Entitic mass]25.2 ckCye53-43AnsRvfxieThe Surgical Hospital [facility] Comment on above:Performed By: #### CBC, BMP, LIVR, 64447-8, 2776-, 11233-7 #### [facility] ([id number]) [address], [address] [place], [place] [address]KABD (RBC) [Mass/Vol]32.1 g/oJAlstvk84-01TslJlpkiw [facility] HospitalComment on above:Performed By: #### CBC, BMP, LIVR, 54641-3, 2776-, 66457-5 #### [facility] ([id number]) [address], [address] [place], [place] [address]FCR (RBC) [Entitic vol]78 aMDjy72-790TlgWdqjmzThe [facility] Comment on above:Performed By: #### CBC, BMP, LIVR, 37269-1, 2776-, 73462-4 #### [facility] ([id number]) [address], [address] [place], [place] [address]Jymuqnmv mean volume (Bld) [Entitic vol]7.3 fLNormal7-12 [facility] HospitalComment on above:Performed By: #### CBC, BMP, LIVR, 90498-9, 2777-1, 05217-6 #### [facility] ([id number]) [address], [address] [place] [address]Ppoagbduu (Bld) [#/Vol]243 10*3/wPTzpvmv793-267InkYdngrz [facility] HospitalComment on above:Performed By: #### CBC, BMP, LIVR, 47254-8, 7-1, 88268-0 #### [facility] ([id number]) [address], [address] [address]XCG COUNT4.75 X10E12/LNormal4.10-5.70[facility] Comment on above:Performed By: #### CBC, BMP, LIVR, 07722-7, 7-1, 64875-5 #### [facility] ([id number]) [address], [address] [place] [address]EKL (Bld) [#/Vol]8.1 10*3/uLNormal4.0-11.0ProOhio Valley HospitalComment on above:Performed By: #### CBC, BMP, LIVR, 00331-9, 7-1, 05426-2 #### [facility] ([id number]) [address], [address] [place] [address]Cssmabc unfractionated Chromogenic method Qn (PPP)on 02-21-2024 ANTI XA UFH0.22 IU/mLLow0.30-0.70The [facility] SouthwoodsComment on above: Result Comment: Optimal time for testing is 6 hrs post dosage This test is specific for monitoring patients on UFH, and is not recommended for use with other Anti-Xa medications.Performed By: #### CBCA, BMP, PINR, 43222-5 #### [facility] ([id number]) [address], [address] [place] [address]OPNY XA UFH0.06 IU/mLLow0.30-0.70[facility] Comment on above:Result Comment: Optimal time for testing is 6 hrs post dosage This test is specific for monitoring patients on UFH, and is not recommended for use with other Anti-Xa medications.Performed By: #### CBCA, BMP, PINR, 30590-7 #### [facility] ([id number]) [address], [address] [place], [place] [address]HAUX XA UFH0.06 IU/mLLow0.30-0.70[facility] Comment on above:Result Comment: Optimal time for testing is 6 hrs post dosage This test is specific for monitoring patients on UFH, and is not recommended for use with other Anti-Xa medications.Performed By: #### 3274-8 #### [facility] ([id number]) [address], [address] [place], [place] [address]SLDME PANELon 94-19-6688Dlltgyd [Mass/Vol]3.5 g/dLNormal3.2-5.3 [facility] HospitalComment on above:Performed By: #### CBC, BMP, LIVR, 34284-7, 2777-1, 17260-1 #### [facility] ([id number]) [address], [address] [place], [place] [address]FXM [Catalytic activity/Vol]63 U/WQxssxk06-221YzrPoqacc [facility] HospitalComment on above:Performed By: #### CBC, BMP, LIVR, 27225-1, 2777-1, 60553-7 #### [facility] ([id number]) [address], [address] [place], [place] [address]ZBB [Catalytic activity/Vol]11 U/LNormal0-40ProD[facility] HospitalComment on above:Performed By: #### CBC, BMP, LIVR, 57779-8, 2777-1, 94843-9 #### [facility] ([id number]) [address], [address] [place], [place] [address]YAZ [Catalytic activity/Vol]21 U/LNormal0-41[facility] HospitalComment on above:Performed By: #### CBC, BMP, LIVR, 71067-3, 2776-1, 48161-1 #### [facility] ([id number]) [address], [address] [address]Kofuvelnm [Mass/Vol]1.1 mg/dLNormal0.3-1.2Pro[facility]Bl[facility] HospitalComment on above:Performed By: #### CBC, BMP, LIVR, 10240-6, 2776-1, 95974-9 #### [facility] ([id number]) [address] [address]Ygckihwtv.direct [Mass/Vol]0.2 mg/dLNormal0.0-0.4ProD[facility] HospitalComment on above:Performed By: #### CBC, BMP, LIVR, 90699-8, 2776-, 45085-0 #### [facility] ([id number]) [address] [address]Wrmvllm [Mass/Vol]6.4 g/dLNormal6.0-8.0[facility] Comment on above:Performed By: #### CBC, BMP, LIVR, 76851-6, 2776-, 04772-7 #### [facility] ([id number]) [address] [address]Yafpcsedsh comment Ed (Report)on 02-73-0821PACT-CoV-2 (COVID- 19) RNA ALEXI+probe Ql (Unsp spec)[facility] Report to Follow.NormalProGalion Hospitalca Silt HospitalComment on above:Performed By: #### CBCA, BMP, PINR, 75890-2 #### [facility] ([id number]) [address] [address]GGAXLSGBZox 08-66-0091Lljoqarxp [Mass/Vol]1.9 mg/dLNormal1.8-2.6 [facility] HospitalComment on above:Performed By: #### CBCA, BMP, PINR, 97364-4 #### [facility] ([id number]) [address], [address] [place], [place] [address]Grtiyjpvczm peptide B [Mass/Vol]on 74-61-3767Xepmcfadpcj peptide B (Bld) [Mass/Vol]171 pg/mLHigh<100.0ProOhio Valley HospitalComment on above: Performed By: #### CBCA, BMP, PINR, 30504-2 #### [facility] ([id number]) [address], [address] [place], [place] [address]LGFCNIZOPWpq 17-78-9860Gipmobsxw [Mass/Vol]3.5 mg/dLNormal 2.4-4.9ProOhio Valley HospitalComment on above:Performed By: #### CBCA, BMP, PINR, 77770-4 #### [facility] ([id number]) [address], [address] [place], [place] [address]OVFX CoV2 by NAAT/Molecularon 17-78-5424NFOL-CoV-2 (COVID-19) RNA ALEXI+probe Ql (Resp)SARS CoV 2 Not detected (qualifier value) NOTE The Xpert Xpress SARS-CoV-2 Plus test is a real-time RT-PCR test intended for the qualitative detection of nucleic acid from the SARS-CoV-2 from individuals suspected of COVID-19 by their healthcare provider. This test has not been validated in asymptomatic patients. The Xpert Xpress SARS-CoV-2 Plus test is intended for use by qualified and trained operators who are performing tests using either X-IO DX or iCrederity systems and is limited to laboratories that meet the CLIA requirements to perform high and moderate complexity tests. The Xpert Xpress SARS-CoV-2 Plus test is only for use under the Food and Drug Administration's Emergency Use Authorization. Results are for the detection and identification of SARS-CoV-2 RNA, which is generally detectable in upper respiratory samples during the acute phase of infection. Positive results are indicative of active infection with SARS-CoV-2; clinical correlation with patient history and other diagnostic information is necessary to determine patient infection status. Positive results do not rule out bacterial infection or co-infection with other viruses. The agent detected may not be the definite cause of disease. Negative results do not preclude SARS-CoV-2 infection and should not be used as the sole basis for treatment or other patient management decisions. Negative results must be combined with clinical observations, patient history, and epidemiological information. An Invalid Result may occur with specimen-associated inhibition unable to be resolved with specimen repeat. Fact Sheet for Healthcare Providers: https://www.fda.gov/media/473496/download Fact Sheet for Patients: https://www.fda.gov/media/469261/downloadNormalNDETProMedica Pomerene Hospital Comment on above:Performed By: #### CBCA, BMP, PINR, 68463-8 #### [facility] ([id number]) [address] [address] [address], [address] [place], [place] [address]UF ABDOMEN LMTDon 92-76-5677FD ABDOMEN LMTDUS ABDOMEN LMTD US ABDOMEN LMTD HISTORY: Abnormal CT, pain, gallbladder wall thickening COMPARISON: CT abdomen pelvis 02/20/2024 TECHNIQUE: Multiple real-time grayscale images were obtained in transverse and sagittal projections. Color Doppler was used. FINDINGS: phlebotomy technologist reports suboptimal examination due to overlying bowel gas and patient body habitus. Homogeneous mildly echogenic appearance of the liver, difficult sonographic penetration. Within this limitation, there are no focal hepatic masses or lesions identified. No intrahepatic biliary dilatation. Common duct measures 0.3 cm. Main portal vein is patent with appropriate direction of flow, velocity measures 24.9 cm/s. Cholelithiasis. Gallbladder wall is not thickened and measures 0.2 cm. No pericholecystic fluid. Ofnote, the observed portion of the gallbladder may not correspond to the area of focal wall thickening described in prior CT. Suboptimal assessment of the pancreas due to overlying bowel gas. IMPRESSION: * Cholelithiasis without additional secondary features of acute cholecystitis. Of note, the observed portion of the gallbladder may not correspond with area of focal wall thickening described on prior CT. The gallbladder may have an hourglass configuration with potential adenomyomatosis and/or acute/chronic cholecystitis within the distal portion the gallbladder (which was not adequately imaged on this study.] Consider MRCP for further characterization. * Probable hepatic steatosis. Approved by Resident Ford Lombardi DO on 02/21/2024 9:51 AM I, Ronald Jacobs MD have personally reviewed the image(s) and agree with and/or edited the report Finalized by Ronald Jacobs MD on 02/21/2024 10:28 AMNormalProMedica Pomerene HospitalBASIC METABOLIC PANLon 32-31-8102Bduhs gap [Moles/Vol]8 mmol/LNormal5-15 [facility] HospitalComment on above:Performed By: #### CBCA, BMP, PINR, 67090-4 #### [facility] ([id number]) [address], [address] [place], [place] [address]Liericl [Mass/Vol]9.1 mg/dLNormal8.5-10.5PHolzer Health SystemComment on above:Performed By: #### CBCA, BMP, PINR, 43605-6 #### [facility] ([id number]) [address], [address] [place], [place] [address]Vtmufbut [Moles/Vol]104 mmol/AZkcxmq97-986YruTiqoei [place] HospitalComment on above:Performed By: #### CBCA, BMP, PINR, 65152-8 #### [facility] ([id number]) [address], [address] [place], [place] [address]XM5 [Moles/Vol]27 mmol/UZlmmkh27-40DomPikezb [facility] Comment on above:Performed By: #### CBCA, BMP, PINR, 98987-8 #### [facility] ([id number]) [address], [address] [place], [place] [address]Qveqwjkziz [Mass/Vol]0.93 mg/dLNormal0.60-1.30[facility] [place] HospitalComment on above:Result Comment: METHOD TRACEABLE TO IDMS STANDARD Performed By: #### FEROZ ORTIZ, PINR, 60906-3 #### [facility] ([id number]) [address], [address] [place], [place] [address]YMU/1.73 sq M.predicted among non-blacks MDRD (S/P/Bld) [Vol rate/Area]87 mL/min/{1.73_m2}Normal>59ProD[facility] HospitalComment on above: Result Comment: Reported eGFR is based on the CKD-EPI 2020 equation that does not use a race coefficient.Performed By: #### FEROZ ORTIZ, PINR, 29289-8 #### [facility] ([id number]) [address], [address] [place], [place] [address]Msvvgcv [Mass/Vol]88 mg/wAJvzfaa96-21GhkAciuxq [facility] Comment on above:Performed By: #### FEROZ ORTIZ, PINR, 48580-0 #### [facility] ([id number]) [address], [address] [place], [place] [address]Uuakcjhaq [Moles/Vol]4.3 mmol/LNormal3.5-5.0Pro[facility] HospitalComment on above:Performed By: #### FEROZ ORTIZ, PINR, 34839-2 #### [facility] ([id number]) [address], [address] [place], [place] [address]Pgmgku [Moles/Vol]139 mmol/BIfrepf262-706OliIellin [place] HospitalComment on above:Performed By: #### ANGEL, FEROZ, PINR, 67938-8 #### [facility] ([id number]) [address], [address] [place], [place] [address]Ugsg nitrogen [Mass/Vol]15 mg/dLNormal5-27Pro[facility] HospitalComment on above:Performed By: #### CBCA, BMP, PINR, 17939-2 #### [facility] ([id number]) [address], [address] [place], [place] [address]IQH AND AUTO DIFFon 46-24-6162FNVQWFWS BASOPHIL0.0 X10E9/LNormal 0.0-0.2[facility] HospitalComment on above:Performed By: #### CBCA, BMP, PINR, 63372-7 #### [facility] ([id number]) [address], [address] [place], [place] [address]CBVIVUNR NEUTROPHIL5.3 X10E9/LNormal1.5-6.6Pro[facility] HospitalComment on above:Performed By: #### CBCA, BMP, PINR, 29446-5 #### [facility] ([id number]) [address], [address] [place], [place] [address]Vfxelkiho/100 WBC (Bld)0.5 %NormalThe [facility] Hospital [facility]woods Comment on above:Performed By: #### CBCA, BMP, PINR, 69603-5 #### [facility] ([id number]) [address], [address] [place], [place] [address]Uatlmxgwevz (Bld) [#/Vol]0.8 10*3/uLHigh0.0-0.4ProOhio Valley HospitalComment on above:Performed By: #### CBCA, BMP, PINR, 55605-5 #### [facility] ([id number]) [address], [address] [place], [place] [address]Sqheksjqvfu/100 WBC (Bld)9.4 %NormalThe Surgical Hospital [facility] Comment on above:Performed By: #### CBCA, BMP, PINR, 32354-9 #### [facility] ([id number]) [address], [address] [place], [place] [address]Sgpfyaivgki distribution width (RBC) [Ratio]14.9 %Normal 11.5-15.0ProOhio Valley HospitalComment on above:Performed By: #### CBCA, BMP, PINR, 43784-9 #### [facility] ([id number]) [address], [address] [place], [place] [address]Akeikkgdjb (Bld) [Volume fraction]39.3 %Roobqr31-66SmxLrrigp [place] HospitalComment on above:Performed By: #### CBCA, BMP, PINR, 26683-6 #### [facility] ([id number]) [address], [address] [place], [place] [address]Adgaqtzrft (Bld) [Mass/Vol]13.0 g/bACpwglp89.0-17.0Pro[facility] HospitalComment on above:Performed By: #### CBCA, BMP, PINR, 88712-9 #### [facility] ([id number]) [address], [address] [place], [place] [address]Omuhndoouoq (Bld) [#/Vol]1.6 10*3/uLNormal1.0-3.5[facility] HospitalComment on above:Performed By: #### CBCA, BMP, PINR, 93785-7 #### [facility] ([id number]) [address], [address] [place], [place] [address]Bwbnelzinnf/100 WBC (Bld)19.4 %NormalThe Surgical Hospital [facility]woods Comment on above:Performed By: #### CBCA, BMP, PINR, 43584-7 #### [facility] ([id number]) [address], [address] [place], [place] [address]QUZ (RBC) [Entitic mass]25.5 btSjt50-19GlrKtldouThe Surgical Hospital at [facility] Comment on above:Performed By: #### CBCA, BMP, PINR, 63136-1 #### [facility] ([id number]) [address], [address] [place], [place] [address]KSGE (RBC) [Mass/Vol]33.1 g/tRFcpmak08-76EyvTpkwtu [place] HospitalComment on above:Performed By: #### CBCA, BMP, PINR, 02974-4 #### [facility] ([id number]) [address], [address] [place], [place] [address]JEJ (RBC) [Entitic vol]77 jTDhm87-237PvhKbqxaoOhio Valley Hospital Comment on above:Performed By: #### CBCA, BMP, PINR, 40408-4 #### [facility] ([id number]) [address], [address] [place], [place] [address]Lldjgtyxt (Bld) [#/Vol]0.7 10*3/uLNormal0-0.9ProOhio Valley HospitalComment on above:Performed By: #### CBCA, BMP, PINR, 57080-0 #### [facility] ([id number]) [address], [address] [place], [place] [address]Hpmwvjrwu/100 WBC (Bld)7.9 %NormalThe Surgical Hospital at [facility] Comment on above:Performed By: #### CBCA, BMP, PINR, 57205-0 #### [facility] ([id number]) [address], [address] [place], [place] [address]Gnjvdnpdfhj/100 WBC (Bld)62.8 %NormalThe Surgical Hospital at [facility] Comment on above:Performed By: #### CBCA, BMP, PINR, 16318-8 #### [facility] ([id number]) [address], [address] [place], [place] [address]Wyoufegy mean volume (Bld) [Entitic vol]7.1 fLNormal7-12 [facility] HospitalComment on above:Performed By: #### CBCA, BMP, PINR, 74518-1 #### [facility] ([id number]) [address], [address] [place], [place] [address]Byjgbrsvw (Bld) [#/Vol]278 10*3/vDXdscgh651-044IthQxlipq [place] HospitalComment on above:Performed By: #### CBCA, BMP, PINR, 44185-1 #### [facility] ([id number]) [address], [address] [place], [place] [address]GUJ COUNT5.10 X10E12/LNormal4.10-5.70[facility] Comment on above:Performed By: #### CBCA, BMP, PINR, 75135-4 #### [facility] ([id number]) [address], [address] [place], [place] [address]CMK (Bld) [#/Vol]8.4 10*3/uLNormal4.0-11.0ProOhio Valley HospitalComment on above:Performed By: #### CBCA, BMP, PINR, 51224-9 #### [facility] ([id number]) [address], [address] [place], [place] [address]CZ ABDOMEN AND PELVIS W CONTon 19-54-3439IG ABDOMEN AND PELVIS W CONTCT ABDOMEN AND PELVIS W CONT CLINICAL INFORMATION: hernia COMPARISON: None PROCEDURE: Routine CT abdomen and pelvis obtained after the uncomplicated intravenous administration of contrast material. Multiplanar reformats obtained from the axial data. Automated exposure control was utilized. Findings: Ventral hernia midline superior pelvis diameter 12 cm containing large bowel without evidence for obstruction Appendix and terminal ileum appropriate Multiple nonobstructing calyx stones within the left kidney with the largest at the midpole measuring 21 mm. Large left renal pelvis without evidence for acute hydronephrosis. Lung bases show no acute findings No free air or free fluid Bladder unremarkable Gallstones are demonstrated. Liver is heterogeneous with vague areas of patchy hypoattenuation especially at the liver dome. Contrast MRI of the abdomen with Eovist recommended to make certain patient does not have a infiltrative neoplasm. This may be benign focal nodular hyperplasia or fatty sparing Gallbladder has a phrygian cap at its superior anterior aspect. There is a gallstone. Gallbladder ultrasound recommended for further assessment since there is some wall thickening and possible enhancement axial image 36 series 302 Spleen pancreas show no acute findings Left adrenal nodule could be an adenoma but comparison any old outside studies to document stability recommended. This is 14 mm diameter. 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 Large left renal pelvis without evidence for acute hydronephrosis. Liver is heterogeneous with vague areas of patchy hypoattenuation especially at the liver dome. Contrast MRI of the abdomen with Eovist recommended to make certain patient does not have a infiltrative neoplasm. This may be benign focal nodular hyperplasia or fatty sparing Gallbladder has a phrygian cap at its superior anterior aspect. There is a gallstone. Gallbladder ultrasound recommended for further assessment since there is some wall thickening and possible enhancement axial image 36 series 302 Left adrenal nodule could be an adenoma but neoplasm not excluded and comparison any old outside studies to document stability recommended. This is 14 mm diameter. 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 This measures 45 mm. Follow-up not required. All CT scans at this facility use dose modulation, iterative reconstruction, and/or weight based dosing when appropriate to reduce radiation dose to as low as reasonably achievable. Finalized by Dennis Terrazas MD on 02/20/2024 2:36 PMNormalProMedica Pomerene Hospital PROTIME AND INRon 57-93-4723JXA Coag (PPP) [Relative time]1.2 {INR}High0.8-1.1 ProMedicAultman Alliance Community HospitalComment on above:Performed By: #### CBCA, BMP, PINR, 22130-0 #### [facility] ([id number]) [address], [address] [place], [place] [address] Coag (PPP) [Time]13.4 sHigh9.8-13.2[facility] Comment on above:Performed By: #### FEROZ ORTIZ, HAY, 14802-9 #### [facility] ([id number]) [address], [address] [place], [place] [address]IL CHEST 1 VWon 43-91-2718AF CHEST 1 VWXR CHEST 1 VW Clinical history: PICC placement. Comparisons: 03/09/2021. Findings: Portable upright chest radiograph obtained 9:42 PM. Left costophrenic angles not includedon the radiograph. Heart size and pulmonary vasculature appear within normal limits. No pulmonary parenchymal consolidation. No pleural effusion nor pneumothorax. Right-sided PICC is now present, tipof which terminates at expected location of RA/SVC junction. IMPRESSION: Tip of right-sided PICC terminates at RA/SVC junction. Finalized by Mejia Joshua MD on 02/20/2024 10:12 PMNormalProMedica Pomerene HospitalaPTT Coag (PPP) [Time]on 92-30-2612zPAT Coag (Bld) [Time]30 mNvbcoo39-00 [facility] HospitalComment on above:Performed By: #### FEROZ ORTIZ, HAY, 38404-0 #### [facility] ([id number]) [address], [address] [place], [place] [address]MXM 12 Leadon 73-11-6483Ebjled fibrillation, left axis deviation, possible inferior [place] unknown age, abnormal ECGCPACSCleveland Clinic Mercy Hospital Work Phone: Office Visit (Cardiology)on 55-86-5972Kwotyw-up visit Diagnoses/Problems Assessed Coronary artery disease involving red devil coronary artery of red devil heart without angina pectoris (414.01) (I25.10) August 16, 2020 pLAD PCI/Elmo 3/26mm mLAD PCI/Elmo 2.75/22mm pRCA PCI/Mike 3/38mm mPLV PCI/Elmo 2/22mm CX 25%. Current daily activity 4 [...] (278.01,V85.41) (E66.01,Z68.41) Orders Coronary artery disease involving red devil coronary artery of red devil heart without angina pectoris Start: Nitroglycerin 0.4 MG Sublingual Tablet Sublingual; DISSOLVE 1 TABLET UNDER THE TONGUE NEEDED FOR CHEST PAIN Coronary artery disease involving red devil coronary artery of red devil heart without angina pectoris, HTN (hypertension), Mixed [...] making process incorporating patients unique circumstances, the followingtreatment plan will be initiated: 1. Prescription drug management of cardiovascular medication for efficacy, adherence to treatment, side effect assessment and polypharmacy. Current treatment clinically warranted and to continue withfollowing modifications: 2. Labs (lipids/AST/ALT) 3. Return for follow-up; in the interim, contact the office if new symptoms arise. Dr. Howe 6 months Discussed the dynamic nature of coronary artery disease and the importance of seeking medical attention if new symptoms arise. Chief Complaint Routine f/u: 'doing fine' LINO PETERS is being seen for a 6 month follow-up of atrial fibrillation, coronary artery disease,dyslipidemia and hypertension. Patient presents to the office ambulatory with steady gait. Last evaluated in clinic Dr. Howe April 2022. At that time, patient presented off all cardiovascular medication and losartan, Eliquis, Lopressor and Lipitor were resumed. Patient reports a August 2022 hospitalization due to pneumonia and COPD, was not followed by [facility] cardiology. He reports being told he was in atrial fibrillation throughout the hospitalization and wasdischarged 'when heart rates were better'. There were no changes to cardiovascular regimen at time of discharge. Patient continues to work full-time at [employer]. He denies any type of routine exercise. [...] mouth every evening Eliquis (more content not included)...NormalUH TouchworksTobacco Screening.on 38-55-7018Qckmz depression screening assessmentSouth County [facility] 250 DO Work Phone: Fall risk assessmenta) No falls within the last year [facility] 250 DO Work Phone: Tobacco use status CPHSb) NoMP-[facility] [place] 250 DO Work Phone: BNPon 59-62-4988Hvyxoyebvex peptide B (Bld) [Mass/Vol] 381.0 pg/mLNormal<=900.0The [facility] HospitalComment on above:Performed By: #### T4, MG #### [facility] [address] [place] [address] Dr. Leona Briones AUTO DIFFon 31-30-1183RPKX #0.1 103/ulNormal0.0-0.1The [facility] HospitalComment on above:Performed By: #### HSTROPN, BMP #### [facility] [address] [place] [address] Dr. Leona Hollandsophils/100 WBC (Bld)0.7 %Normal0.2-2.0[facility] Comment on above:Performed By: #### HSTROPN, BMP #### [facility] [address] [place] [address] Dr. Leona Zaman #0.2 103/ulNormal0.0-0.7The [facility] HospitalComment on above: Performed By: #### HSTROPN, BMP #### [facility] [address] [place] [address] Dr. Leona Millardosinophils/100 WBC (Bld)2.7 %Normal0.9-7.0The [facility] Comment on above:Performed By: #### HSTROPN, BMP #### [facility] [address] [place] [address] Dr. Leona Millardrythrocyte distribution width (RBC) [Ratio]14.0 %Dvlkbc05.0-15.0 The [facility] HospitalComment on above:Performed By: #### HSTROPN, BMP #### [facility] [address] [place] [address] Dr. Leona GarciaHematocrit (Bld) [Volume fraction]41.9 %Critically low42.0-54.0 The [facility] HospitalComment on above:Performed By: #### SNOW, BMP #### [facility] [address] [place] [address] Dr. Leona GarciaHemoglobin (Bld) [Mass/Vol]13.6 g/dLCritically low14.0-18.0The [facility] HospitalComment on above:Performed By: #### HSTRLESVIA, BMP #### [facility] [address] [place] [address] Dr. Leona Johansen #0.03 10e3/ulNormal0.00-0.03The [facility] HospitalComment on above:Performed By: #### SNOW, BMP #### [facility] [address] [place] [address] Dr. Leona Johansen %0.4 %Normal0.0-0.5The [facility] HospitalComment on above: Performed By: #### SNOW, BMP #### [facility] [address] [place] [address] Dr. Leona Kimbrough #1.6 103/ulNormal1.2-3.8The [facility] HospitalComment on above:Performed By: #### HSTRLESVIA, BMP #### [facility] [address] [place] [address] Dr. Leona Parkhocytes/100 WBC (Bld)19.5 %Critically low20.5-60.0The [facility] HospitalComment on above:Performed By: #### HSTRLESVIA, BMP #### [facility] [address] [place] [address] Dr. Leona AndersenUAL DIFF REQNONormalThe [facility] HospitalComment on above: Performed By: #### HSTRLESVIA, BMP #### [facility] [address] [place] [address] Dr. Leona Baer (RBC) [Entitic mass]25.4 pgCritically low25.9-34.0The [facility] HospitalComment on above:Performed By: #### HSTROPN, BMP #### [facility] [address] [place] [address] Dr. Leona Pineda (RBC) [Mass/Vol]32.5 g/eUFqkjdc21.9-35.2The [facility] HospitalComment on above:Performed By: #### HSTROPN, BMP #### [facility] [address] [place] [address] Dr. Leona Pineda (RBC) [Entitic vol]78.2 fLCritically low80.0-94.0The [facility] HospitalComment on above:Performed By: #### HSTRLESVIA, BMP #### [facility] [address] [place] [address] Dr. Leona Pollock #0.8 103/ulNormal0.3-0.8The [facility] HospitalComment on above:Performed By: #### HSTROPNato, BMP #### [facility] [address] [place] [address] Dr. Leona Michelocytes/100 WBC (Bld)9.5 %Normal1.7-12.0The [facility] Comment on above:Performed By: #### HSTRLESVIA, BMP #### [facility] [address] [place] [address] Dr. Leona Pitts #5.4 103/ulNormal1.4-6.5The [facility] HospitalComment on above:Performed By: #### HSTROPN, BMP #### [facility] [address] [place] [address] Dr. Leona Millerophils/100 WBC (Bld)67.2 %Zzifpi12.0-75.0The [facility] HospitalComment on above:Performed By: #### HSTROPN, BMP #### [facility] [address] [place] [address] Dr. Leona Almodovar mean volume (Bld) [Entitic vol]9.3 fLCritically low 9.5-13.5The [facility] HospitalComment on above:Performed By: #### HSTROPN, BMP #### [facility] [address] [place] [address] Dr. Leona GarciaPLT223 103/izKbqwse302-085Dzq [facility] on above: Performed By: #### HSTROPN, BMP #### [facility] [address] [place] [address] Dr. Leona GarciaRBC5.36 106/ulNormal4.70-6.10The [facility] HospitalComment on above:Performed By: #### HSTROPN, BMP #### [facility] [address] [place] [address] Dr. Leona GarciaWBC8.1 103/ulNormal4.0-11.0The [facility] HospitalComre[facility] [place] on above: Performed By: #### HSTROPN, BMP #### [facility] [address] [place] [address] Dr. Leona GarciaPROF 14(COMP METB)on 84-84-0006Sidiwbl [Mass/Vol]3.4 g/dLNormal 3.4-5.0The [facility] HospitalComment on above:Performed By: #### T4, MG #### [facility] [address] [place] [address] Dr. Leona GarciaAlbumin/Globulin [Mass ratio]0.9 {ratio}NormalThe [facility] HospitalComrehabilitation [facility] [place] on above:Performed By: #### T4, MG #### [facility] [address] [place] [address] Dr. Leona Peace [Catalytic activity/Vol]68 U/KTmhdpd21-710Bom [facility] on above:Performed By: #### T4, MG #### [facility] [address] [place] [address] Dr. Leona Boyle [Catalytic activity/Vol]26 U/MScomrd84-37Whj [facility] on above:Performed By: #### T4, MG #### [facility] [address] [place] [address] Dr. Leona Jiménez gap [Moles/Vol]14.5 mmol/LNormalThe [facility] Comment on above:Performed By: #### T4, MG #### [facility] [address] [address] [address] Leona GarciaAST [Catalytic activity/Vol]29 U/UTocjzb97-78Vza [facility] HospitalComment on above:Performed By: #### T4, MG #### [facility] [address] [place] [address] Dr. Leona GarciaBilirubin [Mass/Vol]0.9 mg/dLNormal0.2-1.0[facility] Comment on above:Performed By: #### T4, MG #### [facility] [address] [place] [address] Dr. Leona GarciaCalcium [Mass/Vol]9.1 mg/dLNormal8.5-10.1[facility] Comment on above:Performed By: #### T4, MG #### [facility] [address] [place] [address] Dr. Leona GarciaChloride [Moles/Vol]102 mmol/JXhfsdv36-273FqwTrihealth Mccullough-[facility] Comment on above:Performed By: #### T4, MG #### [facility] [address] [place] [address] Dr. Leona GarciaCO2 [Moles/Vol]24.9 mmol/GSupanr31.0-32.0[facility] Comment on above:Performed By: #### T4, MG #### [facility] [address] [place] [address] Dr. Leona GarciaCreatinine [Mass/Vol]1.18 mg/dLNormal0.70-1.30The [facility] HospitalComment on above:Performed By: #### T4, MG #### [facility] [address] [place] [address] Dr. Leona MillardGFR-AF INDONESIAN>60Normal>=60The [facility] HospitalComment on above:Performed By: #### T4, MG #### [facility] [address] [place] [address] Dr. Leona MillardGFR-NON AF INDONESIAN>60Normal>=60The [facility] HospitalComment on above:Performed By: #### T4, MG #### [facility] [address] [place] [address] Dr. Leona GarciaGlobulin (S) [Mass/Vol]3.9 g/dLNormAultman HospitalComment on above:Performed By: #### T4, MG #### [facility] [address] [place] [address] Dr. Leona GarciaGlucose [Mass/Vol]105 mg/aJCmhdnx23-732AvrTrihealth [facility]ull[facility] Comment on above:Performed By: #### T4, MG #### [facility] [address] [place] [address] Dr. Leona GarciaPotassium [Moles/Vol]3.4 mmol/LCritically low3.5-5.1The [facility] HospitalComment on above:Performed By: #### T4, MG #### [facility] [address] [place] [address] Dr. Leona GarciaProtein [Mass/Vol]7.3 g/dLNormal6.4-8.2[facility] Comment on above:Performed By: #### T4, MG #### [facility] [address] [place] [address] Dr. Leona GarciaSodium [Moles/Vol]138 mmol/DGgymyf858-510WkpTrihealth [facility]ull[facility] Comment on above:Performed By: #### T4, MG #### [facility] [address] [place] [address] Dr. Leona GarciaUrea nitrogen [Mass/Vol]25.0 mg/dLCritically high7.0-18.0The [facility] HospitalComment on above:Performed By: #### T4, MG #### [facility] [address] [place] [address] Dr. Leona Frank nitrogen/Creatinine [Mass ratio]21.2 mg/mgNoUniversity Hospitals Portage Medical CenterComment on above:Performed By: #### T4, MG #### [facility] [address] [place] [address] Dr. Leona Love 17-25-6623Oiutydsacni peptide B (Bld) [Mass/Vol]635.0 pg/mL Normal<=900.0The [facility] HospitalComment on above:Performed By: #### HSTROPN, BMP #### [facility] [address] [place] [address] Dr. Leona Briones AUTO DIFFon 10-78-8567CGIK #0.1 103/ulNormal0.0-0.1The [facility] HospitalComment on above:Performed By: #### T4, MG #### [facility] [address] [place] [address] Dr. Leona GarciaBasophils/100 WBC (Bld)0.6 %Normal0.2-2.0[facility] Comment on above:Performed By: #### T4, MG #### [facility] [address] [place] [address] Dr. Leona Zaman #0.1 103/ulNormal0.0-0.7The [facility] HospitalComment on above: Performed By: #### T4, MG #### [facility] [address] [place] [address] Dr. Leona Millardosinophils/100 WBC (Bld)0.9 %Normal0.9-7.0[facility] Comment on above:Performed By: #### T4, MG #### [facility] [address] [place] [address] Dr. Leona Millardrythrocyte distribution width (RBC) [Ratio]14.3 %Ldaadu61.0-15.0 The [facility] HospitalComment on above:Performed By: #### T4, MG #### [facility] [address] [place] [address] Dr. Leona GarciaHematocrit (Bld) [Volume fraction]44.1 %Cgfhqk84.0-54.0The [facility] HospitalComment on above:Performed By: #### T4, MG #### [facility] [address] [place] [address] Dr. Leona GarciaHemoglobin (Bld) [Mass/Vol]14.2 g/kCOklxgb52.0-18.0The [facility] HospitalComment on above:Performed By: #### T4, MG #### [facility] [address] [place] [address] Dr. Leona Johansen #0.03 10e3/ulNormal0.00-0.03The [facility] HospitalComment on above:Performed By: #### T4, MG #### [facility] [address] [place] [address] Dr. Leona Johansen %0.3 %Normal0.0-0.5The [facility] HospitalComment on above: Performed By: #### T4, MG #### [facility] [address] [place] [address] Dr. Leona Kimbrough #1.4 103/ulNormal1.2-3.8The [facility] HospitalComment on above:Performed By: #### T4, MG #### [facility] [address] [place] [address] Dr. Leona Parkhocytes/100 WBC (Bld)15.6 %Critically low20.5-60.0The [facility] HospitalComment on above:Performed By: #### T4, MG #### [facility] [address] [place] [address] Dr. Leona AndersenUAL DIFF REQNONormalThe [facility] HospitalComment on above: Performed By: #### T4, MG #### [facility] [address] [place] [address] Dr. Leona Baer (RBC) [Entitic mass]25.5 pgCritically low25.9-34.0The [facility] HospitalComment on above:Performed By: #### T4, MG #### [facility] [address] [place] [address] Dr. Leona Pineda (RBC) [Mass/Vol]32.2 g/jDZgueby85.9-35.2The [facility] HospitalComment on above:Performed By: #### T4, MG #### [facility] [address] [place] [address] Dr. Leona PinedaV (RBC) [Entitic vol]79.3 fLCritically low80.0-94.0The [facility] Hospitalment on above:Performed By: #### T4, MG #### [facility] [address] [place] [address] Dr. Leona Pollock #0.8 103/ulNormal0.3-0.8The [facility] HospitalComment on above:Performed By: #### T4, MG #### [facility] [address] [place] [address] Dr. Leona Michelocytes/100 WBC (Bld)9.3 %Normal1.7-12.0The [facility] Comment on above:Performed By: #### T4, MG #### [facility] [address] [place] [address] Dr. Leona Pitts #6.4 103/ulNormal1.4-6.5The [facility] HospitalComment on above:Performed By: #### T4, MG #### [facility] [address] [place] [address] Dr. Leona Louutrophils/100 WBC (Bld)73.3 %Xbvcql83.0-75.0The [facility] HospitalComment on above:Performed By: #### T4, MG #### [facility] [address] [place] [address] Dr. Leona Shabazzlet mean volume (Bld) [Entitic vol]9.0 fLCritically low 9.5-13.5The [facility] HospitalComment on above:Performed By: #### T4, MG #### [facility] [address] [place] [address] Dr. Leona GarciaPLT197 103/zhKqwacu619-014Bie [facility] HospitalComment on above: Performed By: #### T4, MG #### [facility] [address] [place] [address] Dr. Leona GarciaRBC5.56 106/ulNormal4.70-6.10The [facility] HospitalComment on above:Performed By: #### T4, MG #### [facility] [address] [place] [address] Dr. Leona GaricaWBC8.8 103/ulNormal4.0-11.0The [facility] HospitalComment on above: Performed By: #### T4, MG #### [facility] [address] [place] [address] Dr. Leona Daniel 14(COMP METB)on 15-25-6401Rjnhedt [Mass/Vol]3.4 g/dLNormal 3.4-5.0The [facility] HospitalComment on above:Performed By: #### HSTROPN, BMP #### [facility] [address] [place] [address] Dr. Leona GarciaAlbumin/Globulin [Mass ratio]0.8 {ratio}NormalThe [facility] HospitalComment on above:Performed By: #### HSTROPN, BMP #### [facility] [address] [place] [address] Dr. Leona Peace [Catalytic activity/Vol]73 U/YMajjei34-840Zfz [facility] HospitalComment on above:Performed By: #### HSTROPN, BMP #### [facility] [address] [place] [address] Dr. Leona Boyle [Catalytic activity/Vol]18 U/GQohrty72-77Qrg [facility] HospitalComment on above:Performed By: #### HSTROPN, BMP #### [facility] [address] [place] [address] Dr. Leona Jiménez gap [Moles/Vol]17.0 mmol/LNormalThe [facility] Comment on above:Performed By: #### HSTROPN, BMP #### [facility] [address] [place] [address] Dr. Leona Salgado [Catalytic activity/Vol]23 U/TIgwwit86-50Nbr [facility] HospitalComment on above:Performed By: #### HSTROPN, BMP #### [facility] [address] [place] [address] Dr. Yilan ChangBilirubin [Mass/Vol]1.0 mg/dLNormal0.2-1.0[facility] Comment on above:Performed By: #### HSTROPN, BMP #### [facility] [address] [address] [address] Leona GarciaCalcium [Mass/Vol]9.1 mg/dLNormal8.5-10.1[facility] Comment on above:Performed By: #### HSTROPN, BMP #### [facility] [address] [place] [address] Dr. Leona GarciaChloride [Moles/Vol]102 mmol/CHmmssa81-671KqqTrihealth [facility] Comment on above:Performed By: #### HSTROPN, BMP #### [facility] [address] [place] [address] Dr. Leona GarciaCO2 [Moles/Vol]21.7 mmol/KRhghkv06.0-32.0[facility] Comment on above:Performed By: #### HSTROPN, BMP #### [facility] [address] [place] [address] Dr. Leona GarciaCreatinine [Mass/Vol]1.42 mg/dLCritically high0.70-1.30[facility] HospitalComment on above:Performed By: #### HSTROPN, BMP #### [facility] [address] [place] [address] Dr. Delgadillo ChangEGFR-AF COBIQZDB38 mL/min/1.91q4Khvhut>=60[facility] Comment on above:Performed By: #### HSTROPN, BMP #### [facility] [address] [place] [address] Dr. Leona MillardGFR-NON AF FHWDOTRZ72 mL/min/1.07u9Gwokjoubax low>=60The [facility] HospitalComment on above:Performed By: #### HSTROPN, BMP #### [facility] [address] [place] [address] Dr. Leona GarciaGlobulin (S) [Mass/Vol]4.2 g/dLNormalThe [facility] HospitalComment on above:Performed By: #### HSTROPN, BMP #### [facility] [address] [address] [address] Leona GarciaGlucose [Mass/Vol]135 mg/dLCritically dcht98-121Kgb [facility] HospitalComment on above:Performed By: #### HSTROPN, BMP #### [facility] [address] [address] [address] Leona GarciaPotassium [Moles/Vol]3.7 mmol/LNormal3.5-5.1The [facility] Comment on above:Performed By: #### HSTROPN, BMP #### [facility] [address] [address] [address] Leona GarciaProtein [Mass/Vol]7.6 g/dLNormal6.4-8.2The [facility] Comment on above:Performed By: #### HSTROPN, BMP #### [facility] [address] [place] [address] Dr. Leona GarciaSodium [Moles/Vol]137 mmol/IFuqooq025-071Cnf [facility] Comment on above:Performed By: #### HSTROPN, BMP #### [facility] [address] [place] [address] Dr. Leona GarciaUrea nitrogen [Mass/Vol]24.0 mg/dLCritically high7.0-18.0The [facility] HospitalComment on above:Performed By: #### HSTROPN, BMP #### [facility] [address] [place] [address] Dr. Leona Frank nitrogen/Creatinine [Mass ratio]16.9 mg/mgNormalThe [facility] HospitalComment on above:Performed By: #### HSTROPN, BMP #### [facility] [address] [place] [address] Dr. Leona GarciaT3, TOTAL (TRIIODOTHYRONINE)on 69-89-3956T3, TOTAL79 ng/dLNormal 71-180The [facility] HospitalComment on above:Performed By: #### T4, MG #### [facility] [address] [place] [address] Dr. Leona Love 32-71-0061Admsaapazdk peptide B (Bld) [Mass/Vol]1249.0 pg/mLCritically high<=900.0The [facility] on above:Performed By: #### HSTROPN, BMP #### [facility] [address] [place] [address] Dr. Leona Frost HARSHIL ADMITon 34-18-7038SD [Catalytic activity/Vol]219 U/L Vmcleo49-399Xhe [facility]oples Hospitalment on above:Performed By: #### HSTROPNato, BMP #### [facility] [address] [place] [address] Dr. Leona Sandra.MB [Mass/Vol]ng/mLNormal<=3.60The [facility] on above:Performed By: #### HSTROPNato, BMP #### [facility] [address] [place] [address] Dr. Leona AdamTROP18.6 pg/mLNormal4.0-76.1The [facility] on above:Result Comment: CUT-OFF POINTS HAVE BEEN ESTABLISHED BASED ON THE FOURTH UNIVERSAL DEFINITIONS OF MYOCARDIAL INFARCTION. THE UPPER REFERENCE LIMIT (URL) OF TROPONIN, DEFINED THE 99TH PERCENTILE OF cTnI DISTRIBUTION IN A REFERENCE POPULATION, HAS BEEN CONFIRMED THE DECISION THRESHOLD FOR [place] DIAGNOSIS.Performed By: #### HSTROPN, BMP #### [facility] [address] [place] [address] Dr. Leona HaiderO142 ng/mLCritically bpkd82-45Xnd [facility] on above:Performed By: #### HSTROPN, BMP #### [facility] [address] [place] [address] Dr. Leona Briones AUTO DIFFon 83-61-9099DPKZ #0.1 103/ulNormal0.0-0.1The [facility] on above:Performed By: #### T4, MG #### [facility] [address] [place] [address] Dr. Leona GarciaBasophils/100 WBC (Bld)0.6 %Normal0.2-2.0The [facility] Comment on above:Performed By: #### T4, MG #### [facility] [address] [place] [address] Dr. Leona Zaman #0.3 103/ulNormal0.0-0.7The [facility] HospitalComment on above: Performed By: #### T4, MG #### [facility] [address] [place] [address] Dr. Leona Millardosinophils/100 WBC (Bld)3.1 %Normal0.9-7.0The [facility] Comment on above:Performed By: #### T4, MG #### [facility] [address] [place] [address] Dr. Leona Millardrythrocyte distribution width (RBC) [Ratio]14.2 %Yfhsbp19.0-15.0 The [facility] HospitalComment on above:Performed By: #### T4, MG #### [facility] [address] [place] [address] Dr. Leona GarciaHematocrit (Bld) [Volume fraction]46.6 %Gshsif12.0-54.0The [facility] HospitalComment on above:Performed By: #### T4, MG #### [facility] [address] [place] [address] Dr. Leona GarciaHemoglobin (Bld) [Mass/Vol]15.1 g/hSAmzzdf84.0-18.0The [facility] HospitalComment on above:Performed By: #### T4, MG #### [facility] [address] [place] [address] Dr. Leona Johansen #0.03 10e3/ulNormal0.00-0.03The [facility] HospitalComment on above:Performed By: #### T4, MG #### [facility] [address] [place] [address] Dr. Leona Johansen %0.3 %Normal0.0-0.5The [facility] HospitalComment on above: Performed By: #### T4, MG #### [facility] [address] [address] [address] Leona Kimbrough #1.5 103/ulNormal1.2-3.8The [facility] HospitalComment on above:Performed By: #### T4, MG #### [facility] [address] [place] [address] Dr. Leona Stovallmphocytes/100 WBC (Bld)13.5 %Critically low20.5-60.0The [facility] HospitalComment on above:Performed By: #### T4, MG #### [facility] [address] [place] [address] Dr. Leona Pride DIFF REQNONormalThe [facility] HospitalComment on above: Performed By: #### T4, MG #### [facility] [address] [place] [address] Dr. Leona Pineda (RBC) [Entitic mass]26.0 duPmsyqa96.9-34.0The [facility] HospitalComment on above:Performed By: #### T4, MG #### [facility] [address] [place] [address] Dr. Leona Pineda (RBC) [Mass/Vol]32.4 g/zAXpzxzg35.9-35.2The [facility] HospitalComment on above:Performed By: #### T4, MG #### [facility] [address] [place] [address] Dr. Leona Pineda (RBC) [Entitic vol]80.3 mCKhhdcc44.0-94.0The [facility] HospitalComment on above:Performed By: #### T4, MG #### [facility] [address] [place] [address] Dr. Leona Pollock #0.9 103/ulCritically high0.3-0.8The [facility] Comment on above:Performed By: #### T4, MG #### [facility] [address] [place] [address] Dr. Leona Michelocytes/100 WBC (Bld)8.6 %Normal1.7-12.0[facility] Comment on above:Performed By: #### T4, MG #### [facility] [address] [place] [address] Dr. Leona Pitts #8.0 103/ulCritically high1.4-6.5ThKindred Healthcare Comment on above:Performed By: #### T4, MG #### [facility] [address] [place] [address] Dr. Leona Louutrophils/100 WBC (Bld)73.9 %Mhpnme81.0-75.0[facility] HospitalComment on above:Performed By: #### T4, MG #### [facility] [address] [place] [address] Dr. Leona Almodovar mean volume (Bld) [Entitic vol]9.1 fLCritically low 9.5-13.5The [facility] HospitalComment on above:Performed By: #### T4, MG #### [facility] [address] [place] [address] Dr. Leona GarciaPLT228 103/xnJiejof357-691GzxTrihealth Mccullough-Hyde Memorial HospitalComment on above: Performed By: #### T4, MG #### [facility] [address] [place] [address] Dr. Leona GarciaRBC5.80 106/ulNormal4.70-6.10The [facility] HospitalComment on above:Performed By: #### T4, MG #### [facility] [address] [place] [address] Dr. Leona GarciaWBC10.8 103/ulNormal4.0-11.0[facility] HospitalComment on above:Performed By: #### T4, MG #### [facility] [address] [place] [address] Dr. Leona GarciaCovid-19 PCR ([facility])on 12-08-2385QSVI-CoV-2 (COVID-19) RNA ALEXI+probe Ql (Unsp spec)Not detectedNormalNOT DETECTEDThe [facility] Comment on above:Result Comment: When diagnostic testing is negative, the [...] for this test is supported by the [place] of [employer] and Human Service's declaration that circumstances exist to justify the emergency use of in vitro diagnostics for the detection and/or diagnosis of the virus that causes COVID-19. This EUA will remain in effect for the duration of the COVID-19 declaration justifying emergency of IVDs, unless it is terminated or revoked by the FDA (after which the test may no longer be used).Performed By: #### T4, MG #### [facility] [address] [place] [address] Dr. Leona Hirsch LIMITED STUDYon [id number] LIMITED STUDYPatient: LINO PETERSJayshree Exam Date: 09/20/2022 : 1950 Gender:M Ordering : DR HOLA VILLAFUERTE . Admission #: [id number] Family : Order #: [id number] CLICK HERE TO VIEW EXAM ECHOCARDIOGRAM REPORT [...] Left Atrium LA Volume Index (2D A2C): 66253 mm3 Left Atrium Systolic Dimension: 4.80 cm Mitral Valve Right Ventricle Aorta AO Root Diam: 3.60 cm Aortic Valve Tricuspid Valve Pulmonic Valve Right Atrium Dictated by: Kevin Epperson M.D. on 09/20/2022 at 14:32 Approved by: Kevin Epperson M.D. on 09/20/2022 at 14:35[facility] CenterLACTATE/LACTIC ACIDon [id number] [Moles/Vol]1.5 mmol/LNormal 0.4-2.0The [facility] HospitalComment on above:Performed By: #### T4, MG #### [facility] [address] [place] [address] Dr. Leona GarciaMAGNESIUMon 56-80-1524Pcvgfhjhc [Mass/Vol]2.1 mg/dLNormal1.8-2.4 The [facility] HospitalComment on above:Performed By: #### T4, MG #### [facility] [address] [place] [address] Dr. Leona Daniel 14(COMP METB)on 14-91-1998Ontknhp [Mass/Vol]3.8 g/dLNormal 3.4-5.0The [facility] HospitalComment on above:Performed By: #### HSTROPN, BMP #### [facility] [address] [place] [address] Dr. Leona GarciaAlbumin/Globulin [Mass ratio]0.9 {ratio}NormalThe [facility] HospitalComment on above:Performed By: #### HSTROPNato, BMP #### [facility] [address] [address] [address] Leona VelazquezP [Catalytic activity/Vol]72 U/MRlwtgn42-218C[facility] Hospitalment on above:Performed By: #### HSTROPN, BMP #### [facility] [address] [address] [address] Leona Boyle [Catalytic activity/Vol]22 U/BJvpqzo50-54Zgj [facility] HospitalComment on above:Performed By: #### HSTROPN, BMP #### [facility] [address] [address] [address] Leona Yanon gap [Moles/Vol]16.7 mmol/LNormalThe [facility] Comment on above:Performed By: #### HSTROPN, BMP #### [facility] [address] [place] [address] Dr. Leona GarciaAST [Catalytic activity/Vol]26 U/URmmkak58-92Tsj [facility] HospitalComment on above:Performed By: #### HSTROPN, BMP #### [facility] [address] [address] [address] Leona GarciaBilirubin [Mass/Vol]1.2 mg/dLCritically high0.2-1.0The [facility] HospitalComment on above:Performed By: #### HSTROPN, BMP #### [facility] [address] [place] [address] Dr. Leona GarciaCalcium [Mass/Vol]9.3 mg/dLNormal8.5-10.1[facility] Comment on above:Performed By: #### HSTROPN, BMP #### [facility] [address] [address] [address] Leona GarciaChloride [Moles/Vol]104 mmol/FZwjwef58-688Lnl [facility] Comment on above:Performed By: #### HSTROPN, BMP #### [facility] [address] [address] [address] Leona GarciaCO2 [Moles/Vol]24.4 mmol/AYpagfs03.0-32.0The [facility] Comment on above:Performed By: #### HSTROPN, BMP #### [facility] [address] [place] [address] Dr. Leona GarciaCreatinine [Mass/Vol]1.38 mg/dLCritically high0.70-1.30The [facility] HospitalComment on above:Performed By: #### HSTROPNato, BMP #### [facility] [address] [place] [address] Dr. Leona MillardGFR-AF INDONESIAN>60Normal>=60The [facility] HospitalComment on above:Performed By: #### HSTROPNato, BMP #### [facility] [address] [place] [address] Dr. Leona MillardGFR-NON AF CZPUNQOZ92 mL/min/1.82b5Hrxfcfgmba low>=60The [facility] HospitalComment on above:Performed By: #### HSTRLESVIA, BMP #### [facility] [address] [place] [address] Dr. Leona GarciaGlobulin (S) [Mass/Vol]4.3 g/dLNormalThe [facility] HospitalComment on above:Performed By: #### HSTRLESVIA, BMP #### [facility] [address] [place] [address] Dr. Leona GarciaGlucose [Mass/Vol]107 mg/dLCritically dvql97-974Yba [facility] HospitalComment on above:Performed By: #### HSTROPN, BMP #### [facility] [address] [place] [address] Dr. Leona GarciaPotassium [Moles/Vol]4.1 mmol/LNormal3.5-5.1[facility] Comment on above:Performed By: #### HSTROPN, BMP #### [facility] [address] [place] [address] Dr. Leona GarciaProtein [Mass/Vol]8.1 g/dLNormal6.4-8.2The [facility] Comment on above:Performed By: #### HSTROPN, BMP #### [facility] [address] [place] [address] Dr. Leona Weinbergdium [Moles/Vol]141 mmol/BMyupbi638-969Fqj [facility] Comment on above:Performed By: #### HSTRLESVIA, BMP #### [facility] [address] [place] [address] Dr. Leona Frank nitrogen [Mass/Vol]20.0 mg/dLCritically high7.0-18.0The [facility] HospitalComment on above:Performed By: #### HSTRLESVIA, BMP #### [facility] [address] [place] [address] Dr. Leona Frank nitrogen/Creatinine [Mass ratio]14.5 mg/mgNoUniversity Hospitals Portage Medical CenterComment on above:Performed By: #### HSTRLESVIA, BMP #### [facility] [address] [place] [address] Dr. Leona Orellana [id number] Coag (PPP) [Relative time]1.06 {INR} NormalThe [facility] HospitalComment on above:Performed By: #### PT, PTT #### [facility] [address] [place] [address] Dr. Leona Pierre GUIDELINESSEE BELOWAdena Regional Medical CenterComment on above:Result Comment: DESIRED INR: 2.0 - 3.0 CONDITIONS NOT LISTED BELOW 2.5 - 3.5 FOR PROSTHETIC HEART VALVE REPLACEMENT 2.5 - 3.5 RECURRENT THROMBOSIS Performed By: #### PT, PTT #### [facility] [address] [place] [address] Dr. Leona GarciaPT Coag (PPP) [Time]11.2 sNormal9.0-11.6The [facility] Comment on above:Performed By: #### PT, PTT #### [facility] [address] [place] [address] Dr. Leona Armas 11-36-4336tLQL Coag (Bld) [Time]29.3 xUmrfmn79.3-36.2The [facility] HospitalComment on above:Performed By: #### PT, PTT #### [facility] [address] [address] [address] Leona Grovre4on [id number] [Mass/Vol]8.10 ug/dLNormal4.50-12.10The [facility] HospitalComment on above:Performed By: #### T4, MG #### [facility] [address] [place] [address] Dr. Leona Contreras 44-96-0744AHI6.884 uIU/mLNormal0.358-3.740The [facility] HospitalComment on above:Performed By: #### HSTROPN, BMP #### [facility] [address] [place] [address] Dr. Leona Ramos RANDOM W/MICROSCOPICon [id number]O SEENTrihealth Mccullough-Hyde Memorial HospitalComment on above:Performed By: #### T4, MG #### [facility] [address] [place] [address] Dr. Leona Cook Ql (U)NegativeNormalNEGATIVETrihealth Mccull[facility] Comment on above:Performed By: #### T4, MG #### [facility] [address] [place] [address] Dr. Leona Gr SEENNormalNONE SEENVan Wert [facility] on above:Performed By: #### T4, MG #### [facility] [address] [place] [address] Dr. Leona Small (U)SL CLOUDYAbnormalCLEARThe [facility] HospitalComment on above:Performed By: #### T4, MG #### [facility] [address] [place] [address] Dr. Leona Mitchell (U)LT. YELLOWNormalYELLOWTrihealth Mccullough-Hyde Memorial HospitalComment on above:Performed By: #### T4, MG #### [facility] [address] [place] [address] Dr. Leona Richey LM Nom (Urine sed)NONE SEENNormalNONE SEENTrihealth Mccullough-Hyde Memorial HospitalComment on above:Performed By: #### T4, MG #### [facility] [address] [place] [address] Dr. Leona Millardpithelial cells LM Ql (Urine sed)RARENormalNONE SEEN /RARETrihealth Mccullough-Hyde Memorial HospitalComment on above:Performed By: #### T4, MG #### [facility] [address] [place] [address] Dr. Leona GarciaGlucose Ql (U)NegativeNormalNEGATIVETrihealth Mccullough-Hyde Memorial HospitalComment on above:Performed By: #### T4, MG #### [facility] [address] [place] [address] Dr. Leona GarciaHemoglobin Ql (U)MODERATEAbnormalNEGATIVETrihealth [facility] Comment on above:Performed By: #### T4, MG #### [facility] [address] [place] [address] Dr. Leona GarciaKetones Ql (U)NegativeNormalNEGATIVETrihealth Mccullough-Hyde Memorial HospitalComment on above:Performed By: #### T4, MG #### [facility] [address] [place] [address] Dr. Leona GarciaLEUKOCYTESMODERATEAbnormalNEGHighland District HospitalComment on above:Performed By: #### T4, MG #### [facility] [address] [place] [address] Dr. Leona GarciaMUCOUSNONE SEENNormalNONE SEENTrihealth Mccullough-Hyde Memorial HospitalComment on above:Performed By: #### T4, MG #### [facility] [address] [place] [address] Dr. Leona GarciaNitrite Ql (U)PositiveAbnormalNEGHighland District Hospital Comment on above:Performed By: #### T4, MG #### [facility] [address] [place] [address] Dr. Leona GarciapH (U)5.5 [pH]Normal5-9[facility] Memorial HospitalComment on above: Performed By: #### T4, MG #### [facility] [address] [place] [address] Dr. Leona GarciaOzpikQTN4-5Nkfkdvsp6-7Xdl [facility] HospitalComment on above:Performed By: #### T4, MG #### [facility] [address] [address] [address] Leona GarciaSPEC GRAVITY1.208Hsjgujus5.005-<=1.025The [facility] Comment on above:Performed By: #### T4, MG #### [facility] [address] [address] [address] Leona GarciaUA PROTEINTRACENormalNEGATIVE/ TRACEThe [facility] HospitalComment on above:Performed By: #### T4, MG #### [facility] [address] [place] [address] Dr. Leona Singletonbilinogen Qn (U)0.2 {Paulina'U}/dLNormal0.2 - 1.0The [facility] HospitalComment on above:Performed By: #### T4, MG #### [facility] [address] [address] [address] Leona GarciaAyxvuUQL94-424MkvjnpzwTVBZ SEENThe [facility] HospitalComment on above: Performed By: #### T4, MG #### [facility] [address] [place] [address] Dr. Leona GarciaXR CHEST 1 Von [id number] CHEST 1 VEXAM: Chest x-ray HISTORY: . SHORTNESS OF BREATH . COMPARISON: 05/17/2022 TECHNIQUE: Single view of the chest FINDINGS: Heart is slightly to mildly enlarged. Vascularity is unremarkable. Lungs are free of focal infiltrates. EKG leads overlie the chest. IMPRESSION: 1. Cardiac enlargement. 2. No infiltrates noted. Electronically authenticated by: SAROJ DOMINGUEZ Date: 2022-09-20 09:05[facility] Medical CenterBNPon [id number] peptide B (Bld) [Mass/Vol]1362.0 pg/mLCritically high<=900.0The [facility]oples Hospitalment on above:Performed By: #### T4, MG #### [facility] [address] [place] [address] Dr. Leona GarciaCBC AUTO DIFFon 21-58-0536RPCY #0.0 103/ulNormal0.0-0.1The [facility] HospitalComment on above:Performed By: #### T4, MG #### [facility] [address] [place] [address] Dr. Leona GarciaBasophils/100 WBC (Bld)0.2 %Normal0.2-2.0[facility] Comment on above:Performed By: #### T4, MG #### [facility] [address] [place] [address] Dr. Leona Zaman #0.0 103/ulNormal0.0-0.7The [facility] HospitalComment on above: Performed By: #### T4, MG #### [facility] [address] [place] [address] Dr. Leona Millardosinophils/100 WBC (Bld)0.0 %Critically low0.9-7.0The [facility] HospitalComment on above:Performed By: #### T4, MG #### [facility] [address] [place] [address] Dr. Leona Millardrythrocyte distribution width (RBC) [Ratio]13.9 %Buadru17.0-15.0 The [facility] HospitalComment on above:Performed By: #### T4, MG #### [facility] [address] [place] [address] Dr. Leona GarciaHematocrit (Bld) [Volume fraction]41.5 %Critically low42.0-54.0 The [facility] HospitalComment on above:Performed By: #### T4, MG #### [facility] [address] [place] [address] Dr. Leona GarciaHemoglobin (Bld) [Mass/Vol]13.7 g/dLCritically low14.0-18.0The [facility] HospitalComment on above:Performed By: #### T4, MG #### [facility] [address] [place] [address] Dr. Leona Johansen #0.10 10e3/ulCritically high0.00-0.03The [facility] Comment on above:Performed By: #### T4, MG #### [facility] [address] [address] [address] Leona Johansen %0.6 %Critically high0.0-0.5The [facility] HospitalComment on above:Performed By: #### T4, MG #### [facility] [address] [address] [address] Leona Kimbrough #1.1 103/ulCritically low1.2-3.8The [facility] Comment on above:Performed By: #### T4, MG #### [facility] [address] [place] [address] Dr. Leona Parkhocytes/100 WBC (Bld)5.8 %Critically low20.5-60.0The [facility] HospitalComment on above:Performed By: #### T4, MG #### [facility] [address] [place] [address] Dr. Leona AndersenUAL DIFF REQNONormalThe [facility] HospitalComment on above: Performed By: #### T4, MG #### [facility] [address] [place] [address] Dr. Leona Baer (RBC) [Entitic mass]26.0 jxGalyfu38.9-34.0The [facility] HospitalComment on above:Performed By: #### T4, MG #### [facility] [address] [place] [address] Dr. Leona Pineda (RBC) [Mass/Vol]33.0 g/zFWdftub16.9-35.2The [facility] HospitalComment on above:Performed By: #### T4, MG #### [facility] [address] [place] [address] Dr. Leona Wise (RBC) [Entitic vol]78.7 fLCritically low80.0-94.0The [facility] HospitalComment on above:Performed By: #### T4, MG #### [facility] [address] [place] [address] Dr. Leona Pollock #0.6 103/ulNormal0.3-0.8The [facility] HospitalComment on above:Performed By: #### T4, MG #### [facility] [address] [place] [address] Dr. Leona Michelocytes/100 WBC (Bld)3.4 %Normal1.7-12.0[facility] Comment on above:Performed By: #### T4, MG #### [facility] [address] [place] [address] Dr. Leona Pitts #16.4 103/ulCritically high1.4-6.5The [facility] Comment on above:Performed By: #### T4, MG #### [facility] [address] [place] [address] Dr. Leona Louutrophils/100 WBC (Bld)90.0 %Critically high43.0-75.0The [facility] HospitalComment on above:Performed By: #### T4, MG #### [facility] [address] [place] [address] Dr. Leona GarciaPlatericarda mean volume (Bld) [Entitic vol]9.1 fLCritically low 9.5-13.5The [facility] HospitalComment on above:Performed By: #### T4, MG #### [facility] [address] [place] [address] Dr. Leona GarciaPLT242 103/yqUxwrjj490-816Mdp [facility] HospitalComment on above: Performed By: #### T4, MG #### [facility] [address] [place] [address] Dr. Leona GarciaRBC5.27 106/ulNormal4.70-6.10The [facility] HospitalComment on above:Performed By: #### T4, MG #### [facility] [address] [place] [address] Dr. Leona GarciaWBC18.2 103/ulCritically high4.0-11.0The [facility] HospitalComment on above:Performed By: #### T4, MG #### [facility] [address] [place] [address] Dr. Leona Daniel 14(COMP METB)on 47-05-0133Axbbzji [Mass/Vol]3.2 g/dL Critically low3.4-5.0The [facility] Hospitalment on above:Performed By: #### T4, MG #### [facility] [address] [address] [address] Leona GarciaAlbumin/Globulin [Mass ratio]0.8 {ratio}NormalThe [facility] HospitalComment on above:Performed By: #### T4, MG #### [facility] [address] [address] [address] Leona Peace [Catalytic activity/Vol]61 U/VAvdcgf60-692Jaw Peoples Hospitalment on above:Performed By: #### T4, MG #### [facility] [address] [place] [address] Dr. Leona Boyle [Catalytic activity/Vol]34 U/WZspljm50-51Jgn [facility] HospitalComment on above:Performed By: #### T4, MG #### [facility] [address] [address] [address] Leona Jiménez gap [Moles/Vol]17.4 mmol/LNormalThe [facility] Comment on above:Performed By: #### T4, MG #### [facility] [address] [address] [address] Leona GarciaAST [Catalytic activity/Vol]38 U/LCritically mjoy22-67Noo Peoples Hospitalment on above:Performed By: #### T4, MG #### [facility] [address] [place] [address] Dr. Leona GarciaBilirubin [Mass/Vol]0.4 mg/dLNormal0.2-1.0The [facility] Comment on above:Performed By: #### T4, MG #### [facility] [address] [place] [address] Dr. Leona GarciaCalcium [Mass/Vol]9.0 mg/dLNormal8.5-10.1[facility] Comment on above:Performed By: #### T4, MG #### [facility] [address] [address] [address] Leona GarciaChloride [Moles/Vol]105 mmol/ZIkxxzy02-717Ivj [facility] Comment on above:Performed By: #### T4, MG #### [facility] [address] [address] [address] Leona GarciaCO2 [Moles/Vol]20.6 mmol/LCritically low21.0-32.0The [facility] HospitalComment on above:Performed By: #### T4, MG #### [facility] [address] [address] [address] Leona GarciaCreatinine [Mass/Vol]1.32 mg/dLCritically high0.70-1.30The [facility] HospitalComment on above:Performed By: #### T4, MG #### [facility] [address] [place] [address] Dr. Leona MillardGFR-AF INDONESIAN>60Normal>=60The [facility] HospitalComment on above:Performed By: #### T4, MG #### [facility] [address] [place] [address] Dr. Leona MillardGFR-NON AF YHBBWYWF80 mL/min/1.77y3Syywwrrbqd low>=60The [facility] HospitalComment on above:Performed By: #### T4, MG #### [facility] [address] [place] [address] Dr. Leona GarciaGlobulin (S) [Mass/Vol]3.8 g/dLNormalThe [facility] HospitalComment on above:Performed By: #### T4, MG #### [facility] [address] [place] [address] Dr. Leona GarciaGlucose [Mass/Vol]167 mg/dLCritically tkwo10-124Zrl [facility] HospitalComment on above:Performed By: #### T4, MG #### [facility] [address] [place] [address] Dr. Leona GarciaPotassium [Moles/Vol]3.0 mmol/LCritically low3.5-5.1The [facility] HospitalComment on above:Performed By: #### T4, MG #### [facility] [address] [place] [address] Dr. Leona GarciaProtein [Mass/Vol]7.0 g/dLNormal6.4-8.2[facility] Comment on above:Performed By: #### T4, MG #### [facility] [address] [place] [address] Dr. Leona GarciaSodium [Moles/Vol]139 mmol/CYiauhf443-263Dfe [facility] Comment on above:Performed By: #### T4, MG #### [facility] [address] [place] [address] Dr. Leona Frank nitrogen [Mass/Vol]33.0 mg/dLCritically high7.0-18.0The [facility] HospitalComment on above:Performed By: #### T4, MG #### [facility] [address] [place] [address] Dr. Leona Frank nitrogen/Creatinine [Mass ratio]25.0 mg/mgNormalThe [facility] HospitalComment on above:Performed By: #### T4, MG #### [facility] [address] [place] [address] Dr. Leona Love 38-80-0819Cnphdjrynvc peptide B (Bld) [Mass/Vol]1002.0 pg/mLCritically high<=900.0The [facility] HospitalComment on above:Performed By: #### HSTROPN, BMP #### [facility] [address] [place] [address] Dr. Leona Briones AUTO DIFFon 06-45-8864HUBW #0.0 103/ulNormal0.0-0.1The [facility] HospitalComment on above:Performed By: #### HSTROPN, BMP #### [facility] [address] [place] [address] Dr. Leona GarciaBasophils/100 WBC (Bld)0.2 %Normal0.2-2.0The [facility] Comment on above:Performed By: #### HSTROPN, BMP #### [facility] [address] [place] [address] Dr. Leona Zaman #0.0 103/ulNormal0.0-0.7The [facility] HospitalComment on above: Performed By: #### HSTROPNato, BMP #### [facility] [address] [place] [address] Dr. Leona Millardosinophils/100 WBC (Bld)0.0 %Critically low0.9-7.0The [facility] HospitalComment on above:Performed By: #### HSTROPNato, BMP #### [facility] [address] [place] [address] Dr. Leona Millardrythrocyte distribution width (RBC) [Ratio]13.8 %Wuntnd52.0-15.0 The [facility] HospitalComment on above:Performed By: #### HSTRLESVIA, BMP #### [facility] [address] [place] [address] Dr. Leona GarciaHematocrit (Bld) [Volume fraction]45.7 %Cbmero99.0-54.0The [facility] HospitalComment on above:Performed By: #### HSTRLESVIA, BMP #### [facility] [address] [place] [address] Dr. Leona GarciaHemoglobin (Bld) [Mass/Vol]14.9 g/kWTebwqq06.0-18.0The [facility] HospitalComment on above:Performed By: #### HSTRLESVIA, BMP #### [facility] [address] [place] [address] Dr. Leona Johansen #0.04 10e3/ulCritically high0.00-0.03The [facility] Comment on above:Performed By: #### HSTRLESVIA, BMP #### [facility] [address] [place] [address] Dr. Leona Johansen %0.3 %Normal0.0-0.5The [facility] HospitalComment on above: Performed By: #### HSTROPNato, BMP #### [facility] [address] [address] [address] Leona Kimbrough #1.2 103/ulNormal1.2-3.8The [facility] HospitalComment on above:Performed By: #### HSTROPN, BMP #### [facility] [address] [place] [address] Dr. Leona Parkhocytes/100 WBC (Bld)9.6 %Critically low20.5-60.0The [facility] HospitalComment on above:Performed By: #### HSTROPN, BMP #### [facility] [address] [place] [address] Dr. Leona AndersenUAL DIFF REQNONormalThe [facility] HospitalComment on above: Performed By: #### HSTROPN, BMP #### [facility] [address] [place] [address] Dr. Leona Pineda (RBC) [Entitic mass]25.6 pgCritically low25.9-34.0The [facility] HospitalComment on above:Performed By: #### HSTROPN, BMP #### [facility] [address] [place] [address] Dr. Leona Pineda (RBC) [Mass/Vol]32.6 g/mEYznjfi14.9-35.2The [facility] HospitalComment on above:Performed By: #### HSTROPN, BMP #### [facility] [address] [place] [address] Dr. Leona Pineda (RBC) [Entitic vol]78.5 fLCritically low80.0-94.0The [facility] HospitalComment on above:Performed By: #### HSTROPN, BMP #### [facility] [address] [place] [address] Dr. Leona Pollock #0.4 103/ulNormal0.3-0.8The [facility] HospitalComment on above:Performed By: #### HSTROPN, BMP #### [facility] [address] [place] [address] Dr. Leona Michelocytes/100 WBC (Bld)3.0 %Normal1.7-12.0The [facility] Comment on above:Performed By: #### SNOW, BMP #### [facility] [address] [place] [address] Dr. Leona Pitts #10.5 103/ulCritically high1.4-6.5The [facility] Comment on above:Performed By: #### HSTRLESVIA, BMP #### [facility] [address] [place] [address] Dr. Leona Louutrophils/100 WBC (Bld)86.9 %Critically high43.0-75.0The [facility] HospitalComment on above:Performed By: #### HSTRLESVIA, BMP #### [facility] [address] [place] [address] Dr. Leona Almodovar mean volume (Bld) [Entitic vol]9.0 fLCritically low 9.5-13.5The [facility] HospitalComment on above:Performed By: #### DIONNETRLESVIA, BMP #### [facility] [address] [place] [address] Dr. Leona GarciaPLT249 103/usGmflfz701-067Uzi [facility] HospitalComment on above: Performed By: #### HSTRLESVIA, BMP #### [facility] [address] [place] [address] Dr. Leona GarciaRBC5.82 106/ulNormal4.70-6.10The [facility] HospitalComment on above:Performed By: #### HSTROPNato, BMP #### [facility] [address] [place] [address] Dr. Leona GarciaWBC12.0 103/ulCritically high4.0-11.0The [facility] HospitalComment on above:Performed By: #### HSTROPNato, BMP #### [facility] [address] [place] [address] Dr. Leona GarciaCUGIO SPUTUMon 89-25-1427NESVNDN SPUTUMCulture Observations: NORMAL RESPIRATORY VILMA.NormalThe [facility] HospitalComment on above:Performed By: #### HSTROPN, BMP #### [facility] [address] [place] [address] Dr. Leona Daniel 14(COMP METB)on 37-96-9145Jexofjv [Mass/Vol]3.2 g/dL Critically low3.4-5.0The [facility] HospitalComment on above:Performed By: #### T4, MG #### [facility] [address] [place] [address] Dr. Leona GarciaAlbumin/Globulin [Mass ratio]0.7 {ratio}NormalThe [facility] HospitalComment on above:Performed By: #### T4, MG #### [facility] [address] [place] [address] Dr. Leona Peace [Catalytic activity/Vol]69 U/BLvbuwp66-878Khz [facility] HospitalComment on above:Performed By: #### T4, MG #### [facility] [address] [place] [address] Dr. Leona Boyle [Catalytic activity/Vol]28 U/VSbontm68-53Lyg [facility] HospitalComment on above:Performed By: #### T4, MG #### [facility] [address] [place] [address] Dr. Leona Jiménez gap [Moles/Vol]15.1 mmol/LNormalThe [facility] Comment on above:Performed By: #### T4, MG #### [facility] [address] [place] [address] Dr. Leona Salgado [Catalytic activity/Vol]29 U/BWvdlqh15-10Qji [facility] HospitalComment on above:Performed By: #### T4, MG #### [facility] [address] [place] [address] Dr. Leona GarciaBilirubin [Mass/Vol]0.7 mg/dLNormal0.2-1.0The [facility] Comment on above:Performed By: #### T4, MG #### [facility] [address] [place] [address] Dr. Leona GarciaCalcium [Mass/Vol]9.3 mg/dLNormal8.5-10.1The [facility] Comment on above:Performed By: #### T4, MG #### [facility] [address] [place] [address] Dr. Leona GarciaChloride [Moles/Vol]102 mmol/JXgombg10-877Zxf [facility] Comment on above:Performed By: #### T4, MG #### [facility] [address] [place] [address] Dr. Leona GarciaCO2 [Moles/Vol]22.4 mmol/SDiuufz67.0-32.0The [facility] Comment on above:Performed By: #### T4, MG #### [facility] [address] [place] [address] Dr. Leona GarciaCreatinine [Mass/Vol]1.23 mg/dLNormal0.70-1.30The [facility] HospitalComment on above:Performed By: #### T4, MG #### [facility] [address] [place] [address] Dr. Leona MillardGFR-AF INDONESIAN>60Normal>=60The [facility] HospitalComment on above:Performed By: #### T4, MG #### [facility] [address] [place] [address] Dr. Leona MillardGFR-NON AF NAUHLFYT14 mL/min/1.26s2Dltipblsnd low>=60The [facility] HospitalComment on above:Performed By: #### T4, MG #### [facility] [address] [place] [address] Dr. Leona GarciaGlobulin (S) [Mass/Vol]4.4 g/dLNormalThe [facility] HospitalComment on above:Performed By: #### T4, MG #### [facility] [address] [place] [address] Dr. Leona GarciaGlucose [Mass/Vol]178 mg/dLCritically gscj01-190Nqc [facility] HospitalComment on above:Performed By: #### T4, MG #### [facility] [address] [place] [address] Dr. Leona GarciaPotassium [Moles/Vol]3.5 mmol/LNormal3.5-5.1The [facility] Comment on above:Performed By: #### T4, MG #### [facility] [address] [place] [address] Dr. Leona GarciaProtein [Mass/Vol]7.6 g/dLNormal6.4-8.2The [facility] Comment on above:Performed By: #### T4, MG #### [facility] [address] [place] [address] Dr. Leona GarciaSomariluum [Moles/Vol]136 mmol/KAtdoyx295-487Qhp [facility] Comment on above:Performed By: #### T4, MG #### [facility] [address] [place] [address] Dr. Leona Frank nitrogen [Mass/Vol]29.0 mg/dLCritically high7.0-18.0The [facility] HospitalComment on above:Performed By: #### T4, MG #### [facility] [address] [place] [address] Dr. Leona Frank nitrogen/Creatinine [Mass ratio]23.6 mg/mgNormalThe [facility] HospitalComment on above:Performed By: #### T4, MG #### [facility] [address] [place] [address] Dr. Leona GarciaT3, TOTAL (TRIIODOTHYRONINE)on 58-92-7989O6, TOTAL71 ng/dLNormal 71-180The [facility] HospitalComment on above:Performed By: #### T4, MG #### [facility] [address] [place] [address] Dr. Leona Love 26-63-7840Kkgcuckyfer peptide B (Bld) [Mass/Vol]1040.0 pg/mLCritically high<=900.0The [facility] HospitalComment on above:Performed By: #### HSTROPN, BMP #### [facility] [address] [place] [address] Dr. Leona Frost HARSHIL 3-6on 38-12-9651SB [Catalytic activity/Vol]591 U/L Critically krid92-251GzmProMedica Bay Park Hospitalment on above:Performed By: #### T4, MG #### [facility] [address] [address] [address] Leona Sandra.MB [Mass/Vol]1.25 ng/mLNormal<=3.60[facility] Comment on above:Performed By: #### T4, MG #### [facility] [address] [address] [address] Leona Covington15.4 pg/mLNormal4.0-76.1[facility] on above:Result Comment: CUT-OFF POINTS HAVE BEEN ESTABLISHED BASED ON THE FOURTH UNIVERSAL DEFINITIONS OF MYOCARDIAL INFARCTION. THE UPPER REFERENCE LIMIT (URL) OF TROPONIN, DEFINED THE 99TH PERCENTILE OF cTnI DISTRIBUTION IN A REFERENCE POPULATION, HAS BEEN CONFIRMED THE DECISION THRESHOLD FOR [place] DIAGNOSIS.Performed By: #### T4, MG #### [facility] [address] [place] [address] Dr. Leona Sandra [Catalytic activity/Vol]513 U/LCritically hocl17-657EteVan Wert County Hospital on above:Performed By: #### LACT #### [facility] [address] [place] [address] Dr. Leona Sandra.MB [Mass/Vol]1.36 ng/mLNormal<=3.60[facility] Comment on above:Performed By: #### LACT #### [facility] [address] [place] [address] Dr. Leona Covington13.8 pg/mLNormal4.0-76.1[facility] on above:Result Comment: CUT-OFF POINTS HAVE BEEN ESTABLISHED BASED ON THE FOURTH UNIVERSAL DEFINITIONS OF MYOCARDIAL INFARCTION. THE UPPER REFERENCE LIMIT (URL) OF TROPONIN, DEFINED THE 99TH PERCENTILE OF cTnI DISTRIBUTION IN A REFERENCE POPULATION, HAS BEEN CONFIRMED THE DECISION THRESHOLD FOR [place] DIAGNOSIS.Performed By: #### LACT #### [facility] [address] [place] [address] Dr. Leona CHUA ADMITon 05-73-8666ML [Catalytic activity/Vol]438 U/L Critically tdxm74-365CvjProMedica Bay Park Hospitalment on above:Performed By: #### HSTROPN, BMP #### [facility] [address] [place] [address] Dr. Leona Sandra.MB [Mass/Vol]1.23 ng/mLNormal<=3.60[facility] Comment on above:Performed By: #### HSTROPN, BMP #### [facility] [address] [place] [address] Dr. Leona GarciaHSTROP14.6 pg/mLNormal4.0-76.1[facility] on above:Result Comment: CUT-OFF POINTS HAVE BEEN ESTABLISHED BASED ON THE FOURTH UNIVERSAL DEFINITIONS OF MYOCARDIAL INFARCTION. THE UPPER REFERENCE LIMIT (URL) OF TROPONIN, DEFINED THE 99TH PERCENTILE OF cTnI DISTRIBUTION IN A REFERENCE POPULATION, HAS BEEN CONFIRMED THE DECISION THRESHOLD FOR [place] DIAGNOSIS.Performed By: #### HSTROPN, BMP #### [facility] [address] [place] [address] Dr. Leona HaiderO283 ng/mLCritically ukpt02-13QkeVan Wert County Hospital on above:Performed By: #### HSTROPN, BMP #### [facility] [address] [place] [address] Dr. Leona Briones AUTO DIFFon 06-41-3098DGHJ #0.1 103/ulNormal0.0-0.1[facility] HospitalComment on above:Performed By: #### LACT #### [facility] [address] [place] [address] Dr. Leona GarciaBasophils/100 WBC (Bld)0.7 %Normal0.2-2.0[facility] Comment on above:Performed By: #### LACT #### [facility] [address] [place] [address] Dr. Leona Zaman #0.4 103/ulNormal0.0-0.7The [facility] on above: Performed By: #### LACT #### [facility] [address] [place] [address] Dr. Yilan ChangEosinophils/100 WBC (Bld)5.2 %Normal0.9-7.0The [facility] Comment on above:Performed By: #### LACT #### [facility] [address] [place] [address] Dr. Leona Millardrythrocyte distribution width (RBC) [Ratio]13.8 %Ghjkfy79.0-15.0 The [facility] HospitalComment on above:Performed By: #### LACT #### [facility] [address] [place] [address] Dr. Leona GarciaHematocrit (Bld) [Volume fraction]45.1 %Ithbby51.0-54.0The [facility] HospitalComment on above:Performed By: #### LACT #### [facility] [address] [place] [address] Dr. Leona GarciaHemoglobin (Bld) [Mass/Vol]15.1 g/uIVhfapn11.0-18.0The [facility] HospitalComment on above:Performed By: #### LACT #### [facility] [address] [place] [address] Dr. Leona GarciaIG #0.03 10e3/ulNormal0.00-0.03The [facility] HospitalComment on above:Performed By: #### LACT #### [facility] [address] [place] [address] Dr. Leona GarciaIG %0.4 %Normal0.0-0.5The [facility] HospitalComment on above: Performed By: #### LACT #### [facility] [address] [place] [address] Dr. Leona StovallMPH #1.3 103/ulNormal1.2-3.8The [facility] HospitalComment on above:Performed By: #### LACT #### [facility] [address] [place] [address] Dr. Leona Stovallmphocytes/100 WBC (Bld)17.8 %Critically low20.5-60.0The [facility] HospitalComment on above:Performed By: #### LACT #### [facility] [address] [place] [address] Dr. Leona Pride DIFF REQNONormalThe [facility] HospitalComment on above: Performed By: #### LACT #### [facility] [address] [place] [address] Dr. Leona Pineda (RBC) [Entitic mass]26.5 hjZepsmm10.9-34.0The [facility] HospitalComment on above:Performed By: #### LACT #### [facility] [address] [place] [address] Dr. Leona Pineda (RBC) [Mass/Vol]33.5 g/eHZsqwbk26.9-35.2The [facility] HospitalComment on above:Performed By: #### LACT #### [facility] [address] [place] [address] Dr. Leona Pineda (RBC) [Entitic vol]79.3 fLCritically low80.0-94.0The [facility] HospitalComment on above:Performed By: #### LACT #### [facility] [address] [place] [address] Dr. Leona Pollock #0.8 103/ulNormal0.3-0.8The [facility] HospitalComment on above:Performed By: #### LACT #### [facility] [address] [place] [address] Dr. Leona Michelocytes/100 WBC (Bld)10.6 %Normal1.7-12.0The [facility] Comment on above:Performed By: #### LACT #### [facility] [address] [place] [address] Dr. Leona Pitts #4.8 103/ulNormal1.4-6.5The [facility] HospitalComment on above:Performed By: #### LACT #### [facility] [address] [place] [address] Dr. Leona Louutrophils/100 WBC (Bld)65.3 %Fvpfrc18.0-75.0The [facility] HospitalComment on above:Performed By: #### LACT #### [facility] [address] [address] [address] Leona Almodovar mean volume (Bld) [Entitic vol]9.2 fLCritically low 9.5-13.5The [facility] HospitalComment on above:Performed By: #### LACT #### [facility] [address] [place] [address] Dr. Leona GarciaPLT204 103/gxTvipjy260-089Xlj [facility] HospitalComment on above: Performed By: #### LACT #### [facility] [address] [place] [address] Dr. Leona GarciaRBC5.69 106/ulNormal4.70-6.10The [facility] HospitalComment on above:Performed By: #### LACT #### [facility] [address] [place] [address] Dr. Leona GarciaWBC7.4 103/ulNormal4.0-11.0The [facility] HospitalComment on above: Performed By: #### LACT #### [facility] [address] [place] [address] Dr. Leona Menjivar CHEST WO W CONon 08-00-2207PWC CHEST WO W CONEXAMINATION: CTA CHEST WO W CON HISTORY: SHORTNESS OF BREATH [...] Electronically authenticated by: ROHITH MCGEE Date: 2022-05-17 11:21NormSt. Elizabeth Hospitale [facility] HospitalCULTURE BLOODon 54-44-8122Cebflgepsfs examination of blood, cultureCulture Observations: NO GROWTH AT 5 DAYS. Isolate 1 BC_BA_NANormalTrihealth Mccullough-Hyde Memorial HospitalComment on above:Performed By: #### FEROZ ADAMSON #### [facility] [address] [address] [address] Leona Del Castillo-19 PCR ([facility])on 97-06-8757KMGT-CoV-2 (COVID-19) RNA ALEXI+probe Ql (Unsp spec)Not detectedNormalNOT [facility] Comment on above:Result Comment: When diagnostic testing is negative, the [...] for this test is supported by the Appliance Technician of Health and Human Service's declaration that circumstances exist to justify the emergency use of in vitro diagnostics for the detection and/or diagnosis of the virus that causes COVID-19. This EUA will remain in effect for the duration of the COVID-19 declaration justifying emergency of IVDs, unless it is terminated or revoked by the FDA (after which the test may no longer be used).Performed By: #### SNOW, BMP #### [facility] [address] [place], [place] [address] Dr. Leona Coburn-DIMERon 02-66-6932J-DIMER0.63 mg/L FEUCritically high<=0.59The [facility] HospitalComment on above:Performed By: #### LACT #### [facility] [address] [address] [address] Leona Coburn-DIMER COMMENTSSEE BELOWNoUniversity Hospitals Portage Medical CenterComment on above:Result Comment: Increases in D-Dimer concentration observed with thromboembolic events [...] stress, and generalized hospitalization. Performed By: #### LACT #### [facility] [address] [place] [address] Dr. Delgadillo ChangECHOCARDILudy M/2D COMPLETEon [id number] M/2D COMPLETE Patient: LINO PETERS Exam Date: 05/17/2022 : 1950 Gender:M Ordering : DR HOLA VILLAFUERTE . Admission #: [id number] Family : Order #: [id number] CLICK HERE TO VIEW EXAM ECHOCARDIOGRAM REPORT [...] by: Peng Menendez M.D. on 05/17/2022 at 16:19NoUniversity Hospitals Portage Medical CenterLACTATE/LACTIC ACIDon 54-70-7504Nzbcftg [Moles/Vol]4.3 mmol/LCritically high0.4-1.9The [facility] HospitalComment on above:Performed By: #### LACT #### [facility] [address] [place] [address] Dr. Leona Longctate [Moles/Vol]2.1 mmol/LCritically high0.4-1.9The [facility] HospitalComment on above:Performed By: #### T4, MG #### [address] [address] Dr. Leona Daniel 14(COMP METB)on 19-23-6239Xuzxipw [Mass/Vol]3.6 g/dLNormal 3.4-5.0The [facility] HospitalComment on above:Performed By: #### HSTROPN, BMP #### [facility] [address] [place] [address] Dr. Leona GarciaAlbumin/Globulin [Mass ratio]0.9 {ratio}NormalThe [facility] HospitalComment on above:Performed By: #### HSTROPN, BMP #### [facility] [address] [place] [address] Dr. Leona VelazquezP [Catalytic activity/Vol]67 U/XPszcml52-186Itv [facility] Hospitalment on above:Performed By: #### HSTROPN, BMP #### [facility] [address] [address] [address] Leona VelazquezT [Catalytic activity/Vol]23 U/SZepvbm86-42Ezy [facility] HospitalComment on above:Performed By: #### HSTROPN, BMP #### [facility] [address] [address] [address] Leona Yanon gap [Moles/Vol]14.5 mmol/LNormalThe [facility] Comment on above:Performed By: #### HSTROPN, BMP #### [facility] [address] [address] [address] Leona GarciaAST [Catalytic activity/Vol]27 U/NSiafll53-07Yuv [facility] HospitalComment on above:Performed By: #### HSTROPN, BMP #### [facility] [address] [address] [address] Leona GarciaBilirubin [Mass/Vol]1.4 mg/dLCritically high0.2-1.0The [facility] HospitalComment on above:Performed By: #### HSTROPN, BMP #### [facility] [address] [address] [address] Leona GarciaCalcium [Mass/Vol]8.9 mg/dLNormal8.5-10.1[facility] Comment on above:Performed By: #### HSTROPN, BMP #### [facility] [address] [address] [address] Leona GarciaChloride [Moles/Vol]101 mmol/TYkioil86-529Xjd [facility] Comment on above:Performed By: #### HSTROPN, BMP #### [facility] [address] [address] [address] Leona GarciaCO2 [Moles/Vol]23.8 mmol/DZwuapu91.0-32.0The [facility] Comment on above:Performed By: #### HSTROPN, BMP #### [facility] [address] [address] [address] Leona GarciaCreatinine [Mass/Vol]1.16 mg/dLNormal0.70-1.30The [facility] HospitalComment on above:Performed By: #### HSTROPNato, BMP #### [facility] [address] [place] [address] Dr. Leona MillardGFR-AF INDONESIAN>60Normal>=60The [facility] HospitalComment on above:Performed By: #### HSTROPN, BMP #### [facility] [address] [place] [address] Dr. Leona MillardGFR-NON AF INDONESIAN>60Normal>=60The [facility] HospitalComment on above:Performed By: #### HSTROPNato, BMP #### [facility] [address] [place] [address] Dr. Leona GarciaGlobulin (S) [Mass/Vol]4.1 g/dLNormalThe [facility] HospitalComment on above:Performed By: #### HSTRLESVIA, BMP #### [facility] [address] [place] [address] Dr. Leona GarciaGlucose [Mass/Vol]124 mg/dLCritically ajtq50-459Bzr [facility] HospitalComment on above:Performed By: #### HSTROPNato, BMP #### [facility] [address] [place] [address] Dr. Leona GarciaPotassium [Moles/Vol]3.3 mmol/LCritically low3.5-5.1[facility] HospitalComment on above:Performed By: #### HSTROPN, BMP #### [facility] [address] [place] [address] Dr. Leona GarciaProtein [Mass/Vol]7.7 g/dLNormal6.4-8.2[facility] Comment on above:Performed By: #### HSTROPN, BMP #### [facility] [address] [place] [address] Dr. Leona GarciaSodium [Moles/Vol]136 mmol/PUuugxt347-495Pnx [facility] Comment on above:Performed By: #### HSTROPN, BMP #### [facility] [address] [place] [address] Dr. Leona Frank nitrogen [Mass/Vol]22.0 mg/dLCritically high7.0-18.0The [facility] Hospitalment on above:Performed By: #### HSTROPN, BMP #### [facility] [address] [place] [address] Dr. Leona Frank nitrogen/Creatinine [Mass ratio]19.0 mg/mgNoMercy Health St. Rita's Medical Centere [facility] HospitalComment on above:Performed By: #### HSTROPN, BMP #### [facility] [address] [place] [address] Dr. Leona GarciaPROTIMEabelardo 68-00-1039JXJ Coag (PPP) [Relative time]1.09 {INR} NormalThe [facility] on above:Performed By: #### T4, MG #### [facility] [address] [place] [address] Dr. Leona Pierre GUIDELINESSEE BELOWAdena Regional Medical CenterComment on above:Result Comment: DESIRED INR: 2.0 - 3.0 CONDITIONS NOT LISTED BELOW 2.5 - 3.5 FOR PROSTHETIC HEART VALVE REPLACEMENT 2.5 - 3.5 RECURRENT THROMBOSIS Performed By: #### T4, MG #### [facility] [address] [place] [address] Dr. Leona GarciaPT Coag (PPP) [Time]11.7 sCritically high9.0-11.6The [facility] HospitalComrehabilitation institute of [place] on above:Performed By: #### T4, MG #### [facility] [address] [place] [address] Dr. Leona Armas 96-47-0931mLHJ Coag (Bld) [Time]28.8 dZyekku66.3-36.2The [facility] HospitalComment on above:Performed By: #### T4, MG #### [facility] [address] [place] [address] Dr. Leona Grover4on [id number] [Mass/Vol]7.50 ug/dLNormal4.50-12.10The Riverdale HospitalComment on above:Performed By: #### HSTROPN, BMP #### [facility] [address] [address] [address] Leona Contreras [id number] uIU/mLNormal0.358-3.740The [facility] HospitalComment on above:Performed By: #### HSTROPN, BMP #### [facility] [address] [address] [address] Leona GarciaTSH0.846 uIU/mLNormal0.358-3.740The [facility] HospitalComment on above:Performed By: #### LACT #### [facility] [address] [place] [address] Dr. Leona BERNARD W/MICROSCOPICon [id number]CCJ SEENTrihealth Mccullough-Hyde Memorial HospitalComment on above:Performed By: #### HSTROPNato, BMP #### [facility] [address] [place] [address] Dr. Leona Cook Ql (U)NegativeNormalNEGATIVETrihealth Mccullough-[facility] Hospital Comment on above:Performed By: #### HSTROPNato, BMP #### [facility] [address] [place] [address] Dr. Leona Gr SEENNormalNONE SEENTrihealth Mccullough-Hyde Memorial HospitalComment on above:Performed By: #### HSTROPNato, BMP #### [facility] [address] [place] [address] Dr. Leona Small (U)CLEARNormalCLEARTrihealth Mccullough-Hyde Memorial HospitalComment on above: Performed By: #### HSTROPN, BMP #### [facility] [address] [place] [address] Dr. Leona Mitchell (U)YELLOWNormalYELLOWTrihealth Mccullough-Hyde Memorial HospitalComment on above: Performed By: #### HSTROPN, BMP #### [facility] [address] [place] [address] Dr. Leona Richey LM Nom (Urine sed)NONE SEENNormalNONE SEENTrihealth Mccullough-Hyde Memorial HospitalComment on above:Performed By: #### HSTROPN, BMP #### [facility] [address] [address] [address] Leona Millardpithelial cells LM Ql (Urine sed)FEWAbnormalNONE SEEN /RAREThe [facility] HospitalComrehabilitation institute of [place] on above:Performed By: #### HSTROPN, BMP #### [facility] [address] [address] [address] Leona GarciaGlucose Ql (U)NegativeNormalNEGATIVETrihealth Mccullough-Hyde Memorial HospitalComment on above:Performed By: #### HSTROPN, BMP #### [facility] [address] [address] [address] Leona GarciaHemoglobin Ql (U)MODERATEAbnormalNEGHighland District Hospital Comment on above:Performed By: #### HSTROPN, BMP #### [facility] [address] [address] [address] Leona GarciaKetones Ql (U)NegativeNormalNEGATIVETrihealth Mccullough-Hyde Memorial HospitalComment on above:Performed By: #### HSTROPN, BMP #### [facility] [address] [address] [address] Leona GarciaLEUKOCYTESSMALLAbnormalNEGHighland District HospitalComrehabilitation institute of [place] on above:Performed By: #### HSTROPN, BMP #### [facility] [address] [address] [address] Leona GarciaMUCOUSTRACEAbnormalNONE SEENVan Wert [facility] on above:Performed By: #### HSTROPN, BMP #### [facility] [address] [address] [address] Leona GarciaNitrite Ql (U)PositiveAbnormalNEGHighland District Hospital Comment on above:Performed By: #### HSTROPN, BMP #### [facility] [address] [address] [address] Leona GarciapH (U)5.0 [pH]Normal5-9Tri[facility] M[facility]ull[facility]-Hyde Memorial HospitalComment on above: Performed By: #### HSTROPN, BMP #### [facility] [address] [address] [address] Leona GarciaFqsrePZI69-60Tkjwswux7-6Qly [facility] HospitalComment on above: Performed By: #### HSTROPN, BMP #### [facility] [address] [address] [address] Leona GarciaSPEC GRAVITY1.666Svaapb3.005-<=1.025The [facility] HospitalComment on above:Performed By: #### HSTROPN, BMP #### [facility] [address] [address] [address] Loena GarciaUA PROTEINTRACENormalNEGATIVE/ TRACEThe [facility] HospitalComrehabilitation institute of [place] on above:Performed By: #### HSTROPNato, BMP #### [facility] [address] [place] [address] Dr. Leona GarciaUrobilinogen Qn (U)0.2 {Paulina'U}/dLNormal0.2 - 1.0[facility] on above:Performed By: #### HSTROPNato, BMP #### [facility] [address] [place] [address] Dr. Leona GarciaWBC5-10AbnormalNONE SEENThe [facility] on above: Performed By: #### HSTROPNato, BMP #### [facility] [address] [place] [address] Dr. Leona GarciaXR CHEST 1 Von [id number] CHEST 1 VEXAMINATION: XR CHEST 1 V HISTORY: SHORTNESS OF BREATH , [...] Electronically authenticated by: ROHITH MCGEE Date: 2022-05-17 09:[address] [place], [place] [address]Office Visit (Cardiology)on [id number]-up visit Diagnoses/Problems Assessed Coronary artery disease involving red devil coronary artery of red devil heart without angina pectoris (414.01) (I25.10) H/O [...] (V58.61) (Z79.01) Orders Coronary artery disease involving red devil coronary artery of red devil heart without angina pectoris, HLD (hyperlipidemia) Renew: Atorvastatin Calcium 80 MG Oral Tablet; take 1 tablet by mouth every evening Coronary artery disease involving red devil coronary artery of red devil heart without angina pectoris, HTN (hypertension), Ischemic cardiomyopathy Start: Losartan Potassium 25 MG Oral Tablet; Take 1 tablet daily Coronary artery disease involving red devil coronary artery of red devil heart without angina pectoris, Status post insertion of drug eluting coronary artery stent Renew: Aspirin EC 81 MG Oral Tablet Delayed Release; Take one tablet twice weekly HTN (hypertension), Paroxysmal atrial fibrillation Renew: Metoprolol Tartrate 25 MG Oral Tablet; TAKE 0.5 TABLET Twice daily Morbid obesity with BMI of 40.0-44.9, adult Healthy Weight Tips; Status:Complete - Retrospective Authorization; Done: 10May2022 Some eating tips that can help you lose weight.; Status:Complete - Retrospective Authorization; Done: 10May2022 Persistent atrial fibrillation Renew: Eliquis 5 MG Oral Tablet; TAKE 1 TABLET BY MOUTH TWICE DAILY SocHx: Never a smoker Tobacco Use Screening; Status:Complete; Done: 10May2022 Unlinked Stop: Brilinta 90 MG Oral Tablet [...] visit. 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 Patient is 71-year-old gentleman returns for follow-up, he unfortunately has discontinued all of his medications. He sustained high risk non-ST elevation [place] in July 2020, with high risk two-vessel coronary intervention of the proximal through mid LAD and proximal RCA and mid PLV branch x4 BARBARA total. Left ventricular function is 45 to 50% when measured immediately after [place]. He has paroxysmal A. fib, he has [...] mild cognitive impairment at leastby my impression. Surgical History Problems History of [...] are negative for compl (more content not included)...NormalUH TouchworksTobacco Screening.on 36-48-0035Znttj depression screening assessmentNoDayton General Hospital Dan[place] DO Work Phone: Fall risk assessmenta) No falls within the last year [facility] [employer] DO Work Phone: Tobacco use status CPHSb) NoMCoulee Medical Center [employer], [employer] DO Work Phone: CBC AUTO DIFFon [id number] #0.1 103/ulNormal 0.0-0.1Tri[facility]-Hyde Memorial HospitalComment on above:Performed By: #### LACT #### [facility] [address] [place] [address] Dr. Leona GarciaBasophils/100 WBC (Bld)1.4 %Normal0.2-2.0[facility] Comment on above:Performed By: #### LACT #### [facility] [address] [place] [address] Dr. Leona Zaman #0.3 103/ulNormal0.0-0.7The [facility] HospitalComment on above: Performed By: #### LACT #### [facility] [address] [place] [address] Dr. Leona Millardosinophils/100 WBC (Bld)4.1 %Normal0.9-7.0The [facility] Comment on above:Performed By: #### LACT #### [facility] [address] [place] [address] Dr. Leona Millardrythrocyte distribution width (RBC) [Ratio]13.5 %Zpgjtz72.0-15.0 The River[facility] HospitalComment on above:Performed By: #### LACT #### [facility] [address] [place] [address] Dr. Leona Ackermanatocrit (Bld) [Volume fraction]46.1 %Kmbnra65.0-54.0The [facility] HospitalComment on above:Performed By: #### LACT #### [facility] [address] [place] [address] Dr. Leona GarciaHemoglobin (Bld) [Mass/Vol]14.4 g/oVLqarbn43.0-18.0The [facility] HospitalComment on above:Performed By: #### LACT #### [facility] [address] [place] [address] Dr. Leona Johansen #0.02 10e3/ulNormal0.00-0.03The [facility] HospitalComment on above:Performed By: #### LACT #### [facility] [address] [place] [address] Dr. Leona Johansen %0.3 %Normal0.0-0.5The [facility] HospitalComment on above: Performed By: #### LACT #### [facility] [address] [place] [address] Dr. Leona Kimbrough #1.8 103/ulNormal1.2-3.8The [facility] HospitalComment on above:Performed By: #### LACT #### [facility] [address] [place] [address] Dr. Leona Stovallmphocytes/100 WBC (Bld)23.7 %Twxegq63.5-60.0The [facility] HospitalComment on above:Performed By: #### LACT #### [facility] [address] [place] [address] Dr. Leona AndersenUAL DIFF REQNONormalThe [facility] HospitalComment on above: Performed By: #### LACT #### [facility] [address] [place] [address] Dr. Leona Baer (RBC) [Entitic mass]26.1 cgJulrac53.9-34.0The [facility] HospitalComment on above:Performed By: #### LACT #### [facility] [address] [place] [address] Dr. Leona Pineda (RBC) [Mass/Vol]31.2 g/bXLeueaj42.9-35.2The [facility] HospitalComment on above:Performed By: #### LACT #### [facility] [address] [place] [address] Dr. Leona Pineda (RBC) [Entitic vol]83.5 xSTknacr60.0-94.0The [facility] HospitalComment on above:Performed By: #### LACT #### [facility] [address] [place] [address] Dr. Leona Pollock #0.5 103/ulNormal0.3-0.8The [facility] HospitalComment on above:Performed By: #### LACT #### [facility] [address] [place] [address] Dr. Leona Michelocytes/100 WBC (Bld)6.5 %Normal1.7-12.0The [facility] Comment on above:Performed By: #### LACT #### [facility] [address] [place] [address] Dr. Leona Pitts #4.7 103/ulNormal1.4-6.5The [facility] HospitalComment on above:Performed By: #### LACT #### [facility] [address] [place] [address] Dr. Leona Louutrophils/100 WBC (Bld)64.0 %Rfzqly76.0-75.0The [facility] HospitalComment on above:Performed By: #### LACT #### [facility] [address] [place] [address] Dr. Leona Almodovar mean volume (Bld) [Entitic vol]9.0 fLCritically low 9.5-13.5The [facility] HospitalComment on above:Performed By: #### LACT #### [facility] [address] [address] [address] Leona GarciaPLT241 103/uzIywcmr712-613Cso [facility] HospitalComment on above: Performed By: #### LACT #### [facility] [address] [address] [address] Leona GarciaRBC5.52 106/ulNormal4.70-6.10The [facility] HospitalComment on above:Performed By: #### LACT #### [facility] [address] [address] [address] Leona GarciaWBC7.4 103/ulNormal4.0-11.0The [facility] HospitalComment on above: Performed By: #### LACT #### [facility] [address] [place] [address] Dr. Leona GarciaPROF CHEM 8 (BAS METB)on [id number] gap [Moles/Vol]10.8 mmol/LNormalThe [facility] HospitalComment on above:Performed By: #### HSTROPN, BMP #### [facility] [address] [place] [address] Dr. Leona GarciaCalcium [Mass/Vol]9.1 mg/dLNormal8.5-10.1The [facility] Comment on above:Performed By: #### HSTROPN, BMP #### [facility] [address] [place] [address] Dr. Leona GarciaChloride [Moles/Vol]105 mmol/SHcankj46-535Acu [facility] Comment on above:Performed By: #### HSTROPN, BMP #### [facility] [address] [place] [address] Dr. Leona GarciaCO2 [Moles/Vol]27.1 mmol/IHagdwa64.0-32.0The [facility] Comment on above:Performed By: #### HSTROPN, BMP #### [facility] [address] [place] [address] Dr. Leona GarciaCreatinine [Mass/Vol]1.10 mg/dLNormal0.70-1.30The [facility] HospitalComment on above:Performed By: #### HSTROPN, BMP #### [facility] [address] [address] [address] Leona MillardGFR-AF INDONESIAN>60Normal>=60The [facility] HospitalComment on above:Performed By: #### HSTROPN, BMP #### [facility] [address] [address] [address] Leona MillardGFR-NON AF INDONESIAN>60Normal>=60The [facility] HospitalComment on above:Performed By: #### HSTROPN, BMP #### [facility] [address] [place] [address] Dr. Leona GarciaGlucose [Mass/Vol]110 mg/dLCritically ihlh99-148Rhg [facility] HospitalComment on above:Performed By: #### HSTROPN, BMP #### [facility] [address] [place] [address] Dr. Leona GarciaPotassium [Moles/Vol]4.9 mmol/LNormal3.5-5.1[facility] Comment on above:Performed By: #### HSTROPN, BMP #### [facility] [address] [place] [address] Dr. Leona GarciaSodium [Moles/Vol]138 mmol/DPeqsxl298-008QpaTrihealth Mccullough-Hyde Memorial Hospital Comment on above:Performed By: #### HSTROPN, BMP #### [facility] [address] [place] [address] Dr. Leona GarciaUrea nitrogen [Mass/Vol]17.0 mg/dLNormal7.0-18.0The [facility] HospitalComment on above:Performed By: #### HSTROPN, BMP #### [facility] [address] [place] [address] Dr. Leona Frank nitrogen/Creatinine [Mass ratio]15.5 mg/mgNormalThe [facility] HospitalComment on above:Performed By: #### HSTROPN, BMP #### [facility] [address] [place] [address] Dr. Leona RazaIMEon [id number] Coag (PPP) [Relative time]1.05 {INR} NormalTrihealth Mccullough-Hyde Memorial HospitalComment on above:Performed By: #### T4, MG #### [facility] [address] [place] [address] Dr. Leona Pierre GUIDELINESSEE BELOWAdena Regional Medical CenterComment on above:Result Comment: DESIRED INR: 2.0 - 3.0 CONDITIONS NOT LISTED BELOW 2.5 - 3.5 FOR PROSTHETIC HEART VALVE REPLACEMENT 2.5 - 3.5 RECURRENT THROMBOSIS Performed By: #### T4, MG #### [facility] [address] [place] [address] Dr. Leona GarciaPT Coag (PPP) [Time]11.3 sNormal9.0-11.6The [facility] Comment on above:Performed By: #### T4, MG #### [facility] [address] [place] [address] Dr. Leona Armas [id number] Coag (Bld) [Time]27.3 uIcqdsv58.3-36.2[facility] Memorial HospitalComment on above:Performed By: #### T4, MG #### [facility] [address] [place] [address] Dr. Leona Demarco, HIGH SENSITIVITYon 48-36-7623LGBGGR7.3 pg/mLNormal 4.0-76.1[facility] Memorial HospitalComment on above:Result Comment: CUT-OFF POINTS HAVE BEEN ESTABLISHED BASED ON THE FOURTH UNIVERSAL DEFINITIONS OF MYOCARDIAL INFARCTION. THE UPPER REFERENCE LIMIT (URL) OF TROPONIN, DEFINED THE 99TH PERCENTILE OF cTnI DISTRIBUTION IN A REFERENCE POPULATION, HAS BEEN CONFIRMED THE DECISION THRESHOLD FOR [place] DIAGNOSIS.Performed By: #### HSTROPN, BMP #### [facility] [address] [place] [address] Dr. Leona Briones AUTO DIFFon [id number] #0.1 103/ulNormal0.0-0.1The [facility] HospitalComment on above:Performed By: #### T4, MG #### [facility] [address] [place] [address] Dr. Leona GarciaBasophils/100 WBC (Bld)1.0 %Normal0.2-2.0The [facility] Comment on above:Performed By: #### T4, MG #### [facility] [address] [place] [address] Dr. Leona Zaman #0.2 103/ulNormal0.0-0.7The [facility] HospitalComment on above: Performed By: #### T4, MG #### [facility] [address] [place] [address] Dr. Leona Millardosinophils/100 WBC (Bld)2.8 %Normal0.9-7.0The [facility] Comment on above:Performed By: #### T4, MG #### [facility] [address] [place] [address] Dr. Leona Millardrythrocyte distribution width (RBC) [Ratio]14.0 %Otfaqb14.0-15.0 The [facility] HospitalComment on above:Performed By: #### T4, MG #### [facility] [address] [place] [address] Dr. Leona GarciaHematocrit (Bld) [Volume fraction]44.6 %Gklxes75.0-54.0The [facility] HospitalComment on above:Performed By: #### T4, MG #### [facility] [address] [place] [address] Dr. Leona GarciaHemoglobin (Bld) [Mass/Vol]13.9 g/dLCritically low14.0-18.0The [facility] HospitalComment on above:Performed By: #### T4, MG #### [facility] [address] [place] [address] Dr. Leona Johansen #0.04 10e3/ulCritically high0.00-0.03The [facility] Comment on above:Performed By: #### T4, MG #### [facility] [address] [place] [address] Dr. Leona Johansen %0.5 %Normal0.0-0.5The [facility] HospitalComment on above: Performed By: #### T4, MG #### [facility] [address] [place] [address] Dr. Leona Kimbrough #1.9 103/ulNormal1.2-3.8The [facility] HospitalComment on above:Performed By: #### T4, MG #### [facility] [address] [place] [address] Dr. Leona Parkhocytes/100 WBC (Bld)22.1 %Stppmx22.5-60.0The [facility] HospitalComment on above:Performed By: #### T4, MG #### [facility] [address] [place] [address] Dr. Leona Pride DIFF REQNONormalThe [facility] HospitalComment on above: Performed By: #### T4, MG #### [facility] [address] [place] [address] Dr. Leona Baer (RBC) [Entitic mass]26.0 abQwrqtk42.9-34.0The [facility] HospitalComment on above:Performed By: #### T4, MG #### [facility] [address] [place] [address] Dr. Leona Pineda (RBC) [Mass/Vol]31.2 g/yLYxrcls16.9-35.2The [facility] HospitalComment on above:Performed By: #### T4, MG #### [facility] [address] [place] [address] Dr. Leona Wise (RBC) [Entitic vol]83.4 eNDfjxlt02.0-94.0The [facility] HospitalComment on above:Performed By: #### T4, MG #### [facility] [address] [place] [address] Dr. Leona Pollock #0.6 103/ulNormal0.3-0.8The [facility] HospitalComment on above:Performed By: #### T4, MG #### [facility] [address] [place] [address] Dr. Leona Michelocytes/100 WBC (Bld)7.4 %Normal1.7-12.0[facility] Comment on above:Performed By: #### T4, MG #### [facility] [address] [place] [address] Dr. Leona Pitts #5.8 103/ulNormal1.4-6.5The [facility] HospitalComment on above:Performed By: #### T4, MG #### [facility] [address] [place] [address] Dr. Leona Louutrophils/100 WBC (Bld)66.2 %Zezckr41.0-75.0The [facility] HospitalComment on above:Performed By: #### T4, MG #### [facility] [address] [place] [address] Dr. Leona Almodovar mean volume (Bld) [Entitic vol]9.2 fLCritically low 9.5-13.5The [facility] HospitalComment on above:Performed By: #### T4, MG #### [facility] [address] [place] [address] Dr. Leona RebollarT259 103/whOztiyb914-548Mss [facility] HospitalComment on above: Performed By: #### T4, MG #### [facility] [address] [place] [address] Dr. Leona GarciaRBC5.35 106/ulNormal4.70-6.10The [facility] HospitalComment on above:Performed By: #### T4, MG #### [facility] [address] [place] [address] Dr. Leona GarciaWBC8.7 103/ulNormal4.0-11.0The [facility] HospitalComment on above: Performed By: #### T4, MG #### [facility] [address] [place] [address] Dr. Leona Daniel CHEM 8 (BAS METB)on 12-09-2945Jsjdz gap [Moles/Vol]11.2 mmol/LNormalThe [facility] HospitalComment on above:Performed By: #### LACT #### [facility] [address] [address] [address] Leona GarciaCalcium [Mass/Vol]8.8 mg/dLNormal8.5-10.1The [facility] Comment on above:Performed By: #### LACT #### [facility] [address] [address] [address] Leona GarciaChloride [Moles/Vol]107 mmol/YOgwiuy94-403LjgTrihealth Mcc[facility] Comment on above:Performed By: #### LACT #### [facility] [address] [address] [address] Leona GarciaCO2 [Moles/Vol]26.8 mmol/ZJxnwee21.0-32.0[facility] Comment on above:Performed By: #### LACT #### [facility] [address] [address] [address] Leona GarciaCreatinine [Mass/Vol]1.13 mg/dLNormal0.70-1.30The [facility] HospitalComment on above:Performed By: #### LACT #### [facility] [address] [address] [address] Delgadillo ChangEGFR-AF INDONESIAN>60Normal>=60The [facility] HospitalComment on above:Performed By: #### LACT #### [facility] [address] [address] [address] Leona MillardGFR-NON AF INDONESIAN>60Normal>=60The [facility] HospitalComment on above:Performed By: #### LACT #### [facility] [address] [address] [address] Leona GarciaGlucose [Mass/Vol]102 mg/rQYstglp53-310OdlTrihealth Mccullough-[facility] Comment on above:Performed By: #### LACT #### [facility] [address] [address] [address] Leona GarciaPotassium [Moles/Vol]4.0 mmol/LNormal3.5-5.1The [facility] Comment on above:Performed By: #### LACT #### [facility] [address] [place] [address] Dr. Leona Weinbergdium [Moles/Vol]141 mmol/PXhkkyi066-702EklTrihealth M[facility] Comment on above:Performed By: #### LACT #### [facility] [address] [place] [address] Dr. Leona Frank nitrogen [Mass/Vol]16.0 mg/dLNormal7.0-18.0The [facility] HospitalComment on above:Performed By: #### LACT #### [facility] [address] [place] [address] Dr. Leona Frank nitrogen/Creatinine [Mass ratio]14.2 mg/mgNoUniversity Hospitals Portage Medical CenterComment on above:Performed By: #### LACT #### [facility] [address] [place] [address] Dr. Leona Orellana 15-98-3985UUZ Coag (PPP) [Relative time]1.03 {INR} NormalThe [facility] HospitalComment on above:Performed By: #### PTT, PT #### [facility] [address] [place] [address] Dr. Leona Pierre GUIDELINESSEE BELOWAdena Regional Medical CenterComment on above:Result Comment: DESIRED INR: 2.0 - 3.0 CONDITIONS NOT LISTED BELOW 2.5 - 3.5 FOR PROSTHETIC HEART VALVE REPLACEMENT 2.5 - 3.5 RECURRENT THROMBOSIS Performed By: #### PTT, PT #### [facility] [address] [place] [address] Dr. Leona Warren Coag (PPP) [Time]11.1 sNormal9.0-11.6The [facility] Comment on above:Performed By: #### PTT, PT #### [facility] [address] [place] [address] Dr. Leona Armas 42-00-7147iOXX Coag (Bld) [Time]28.7 hIyznhj73.3-36.2[facility] Memorial HospitalComment on above:Performed By: #### PTT, PT #### [facility] [address] [place] [address] Dr. Leona Vail Screening.on 52-18-5167Suea risk assessmenta) No falls within the last [facility]Day[facility] [address] [place] Work Phone: Tobacco use status CPHSb) [facility] [address] [place] Work Phone: Tobacco Screening.on 32-18-2939Urle risk assessmenta) No falls within the last yearW[facility] [address] DO Work Phone: Tobacco use status CPHSb) [employer] [address] DO Work Phone: Provider Orderson 88-44-3039Tpjrfbtq Orders [id number]#1.00[facility] Provider Orderson 37-18-7395Gktzilui Orders [id number]#1.00[facility] Provider [id number]#1.00[facility] HospitalOutside Recordson 11-76-2877Grrhnah Records [id number]#1.00[facility] Coding Summaryon 93-27-1275Nmxfjk SummaryHTMLBase 64 HrtsqhssYTf0dDg+PGhlYWQ+ZQ1NUOLbA81piBXzqH8ZY4zTFP0HJLNFFEBDZC3YNS7jdBL4EElaZ3Dp biAv [file] b2x (more content not included)...[facility] CenterConsent Formson 42-34-8779Dxzpbng [id number]#1.00OTGTIFF [facility].Auto Diff 108-85-5397Qyyq [place] %10 %Normal1-12 [facility] HealthcareComment on above:Performed By: #### [id number], [id number] #### [facility] (DEFAULT) [address] [place] [address] 27292Phtf Abs#0.1 c70Oyznut6.0-0.2Magruder HospitalComment on above:Performed By: #### [id number], [id number] #### [facility] (DEFAULT) [address] [place] [address] 35641Mrsxykrpl/100 WBC (Bld)1.2 %Normal0.2-2.0[facility] Comment on above:Performed By: #### [id number], [id number] #### [facility] (DEFAULT) [address] [place] [address] 23452Evd Abs#0.3 s52Pefwtq1.0-0.4Magruder HospitalComment on above:Performed By: #### [id number], [id number] #### [facility] (DEFAULT) [address] [place] [address] 29727Zfikrqpgrdd/100 WBC (Bld)4.8 %High0.9-4.0Magrpromedica [facility] hospital Hospital Comment on above:Performed By: #### [id number], [id number] #### [facility] (DEFAULT) [address] [place] [address] 89868Kwcoa Abs#1.0 x00Ksw4.3-2.9Magruder HospitalComment on above:Performed By: #### [id number], [id number] #### [facility] (DEFAULT) [address] [place] [address] 25156Evewopyjjtd/100 WBC (Bld)16 %Xhsesj55-15Kpubwklf Hospital Comment on above:Performed By: #### [id number], [id number] #### [facility] (DEFAULT) [address] [place] [address] 78129Rzsu Abs#0.6 y43Smxzvs0.0-0.8Magrpromedica bay park hospital HospitalComment on above:Performed By: #### [id number], [id number] #### [facility] (DEFAULT) [address] [place] [address] 83683Foxj Abs#4.5 m08Dpjqly3.5-9.2Mtrumbull [facility] medical center HospitalComment on above:Performed By: #### [id number], [id number] #### [facility] (DEFAULT) [address] [place] [address] 40864Jrmnvrviife/100 WBC (Bld)68 %Tjftyf91-86Neoflhkz Hospital Comment on above:Performed By: #### [id number], [id number] #### [facility] (DEFAULT) [address] [place] [address] 49960JNY w/ Auto Diffon 90-42-4312Gjeuowdywlw distribution width (RBC) [Ratio]15.4 %High11.5-15.0Kindred HealthcareComment on above: Performed By: #### [id number], [id number] #### [facility] (DEFAULT) [address] [place] [address] 03336Bwubveehfa (Bld) [Volume fraction]36.1 %Zyawzh46.8-51.9 [facility] HealthcareComment on above:Performed By: #### [id number], [id number] #### [facility] (DEFAULT) [address] [place] [address] 79510Bfmlfllrnm (Bld) [Mass/Vol]11.7 g/dLLow11.8-17.7Kindred HealthcareComment on above:Performed By: #### [id number], [id number] #### [facility] (DEFAULT) [address] [place] [address] 97798Ihvqu WBC6.6 t46Jdatowq Interpretation CodeDayton Va Medical Center HospitalComment on above:Performed By: #### [id number], [id number] #### [facility] (DEFAULT) [address] [place] [address] 03123Qms Diff?AutoNormalDayton Va Medical Center HospitalComment on above: Performed By: #### [id number], [id number] #### [facility] (DEFAULT) [address] [place] [address] 34178IXP (RBC) [Entitic mass]25 ukOecwfp12-45Hmpbrptd Hospital Comment on above:Performed By: #### [id number], [id number] #### [facility] (DEFAULT) [address] [place] [address] 10844EWOI (RBC) [Mass/Vol]32 g/cRGtpobv09-94Ifyplgnv Hospital Comment on above:Performed By: #### [id number], [id number] #### [facility] (DEFAULT) [address] [place] [address] 56585IMD (RBC) [Entitic vol]76 nMDjs09-164Ycpalqkw Hospital Comment on above:Performed By: #### [id number], [id number] #### [facility] (DEFAULT) [address] [place] [address] 44206Bpykgytt802 k70Ucndzr293-275Fokwdfyo HospitalComment on above:Performed By: #### [id number], [id number] #### [facility] (DEFAULT) [address] [place] [address] 95164Uevmlyxr mean volume (Bld) [Entitic vol]9.3 fLNormal 6.3-10.2[facility] center HospitalComment on above:Performed By: #### [id number], [id number] #### [facility] (DEFAULT) [address] [place] [address] 44216DGJ3.73 w95Peohiw7.70-5.30Kindred HealthcareComment on above:Performed By: #### [id number], [id number] #### [facility] (DEFAULT) [address] [place] [address] 84778MET2.6 c62Zclizd2.5-10.5[facility] HospitalComment on above: Result Comment: Slide ReviewedPerformed By: #### [id number], [id number] #### [facility] (DEFAULT) [address] [place] [address] 94483MYY Standardon 33-22-2666cBCR Non AA>60Invalid Interpretation [facility] HospitalComment on above:Performed By: #### [id number] ####[facility] (DEFAULT)[address] [place] [address] 51333gRDM AA>60Invalid Interpretation CodeDayton Va Medical Center HospitalComment on above: Result Comment: Chronic Kidney disease could be indicated at eGFRs of less than 60 ml/min/1.73m2. Kidney Failure is indicated at less than 15 ml/min/1.73m2 Performed By: #### [id number] ####[facility] (DEFAULT)[address] [place] [address] 76054Kmjxnpg [Mass/Vol]2.7 g/dLLow3.5-5.0[facility] HospitalComment on above:Performed By: #### [id number] ####[facility] (DEFAULT)[address] [place] [address] 26777Tgutpvs/Globulin [Mass ratio]0.7 {ratio}Low1.4-2.6[facility] HospitalComment on above:Performed By: #### [id number] ####[facility] (DEFAULT)[address] [place] [address] 42503Xfl Phos92 IU/INqtm74-47Omhvsknr HospitalComment on above:Performed By: #### [id number] ####[facility] (DEFAULT)[address] [place] [address] 04775HTC [Catalytic activity/Vol]178.0 U/LHigh17.0-63.0[facility] HospitalComment on above: Performed By: #### [id number] ####[facility] (DEFAULT)[address] [place] [address] 49085Uxoiq gap [Moles/Vol]17.0 mmol/LNormal5.0-19.0 [facility] HospitalComment on above:Performed By: #### [id number] ####[facility] (DEFAULT)[address] [place] [address] 00860ITN [Catalytic activity/Vol]196 U/MUxhk01-59Wlcewqon HospitalComment on above:Performed By: #### [id number] ####[facility] (DEFAULT)[address] [place] [address] 72834Jjbx Total0.8 mg/dLNormal0.3-1.2[facility] HospitalComment on above:Performed By: #### [id number] ####[facility] (DEFAULT)[address] [place] [address] 51500Xjvsglm [Mass/Vol]8.3 mg/dLLow8.9-10.3[facility] HospitalComment on above:Performed By: #### [id number] ####[facility] (DEFAULT)[address] [place] [address] 43470Zpuwwvsj [Moles/Vol]102 mmol/MXcrcfu757-163Eauzqyus HospitalComment on above:Performed By: #### [id number] ####[facility] (DEFAULT)[address] [place] [address] 65704PU2 [Moles/Vol]25 mmol/LNormal 21-32[facility] HospitalComment on above:Performed By: #### [id number] ####[facility] (DEFAULT)[address] [place] [address] 76010Sydnexdxzy [Mass/Vol]0.88 mg/dLLow0.90-1.30[facility] HospitalComment on above:Performed By: #### [id number] ####[facility] (DEFAULT)[address] [place] [address] 03570Eqlkxxif (S) [Mass/Vol]4.0 g/dLNormal1.5-4.3[facility] HospitalComment on above:Performed By: #### [id number] ####[facility] (DEFAULT)[address] [place] [address] 30775Ucbjgqw [Mass/Vol]117.0 mg/tMTlluao00.0-118.0 [facility] HospitalComment on above:Performed By: #### [id number] ####[facility] (DEFAULT)[address] [place] [address] 95961Pkjsdhhsnb977 mOsm/L Invalid Interpretation CodeDayton Va Medical Center HospitalComment on above:Performed By: #### [id number] ####[facility] (DEFAULT)[address] [place] [address] 68901Kvhyyifrn [Moles/Vol]3.8 mmol/LNormal3.6-5.1Magrpromedica bay park hospital HospitalComment on above:Result Comment: Spoke with nurses on floor - they could not explain why the rise in potassium otherthan the fact that he is eating betterPerformed By: #### [id number] ####[facility] (DEFAULT)[address] [place] [address] 03684Mrswnnm [Mass/Vol]6.7 g/dLNormal6.5-8.1MSt. Mary's Medical Center, Ironton CampusComment on above: Performed By: #### [id number] ####[facility] (DEFAULT)[address] [place] [address] 98980Ltxbnb [Moles/Vol]140.0 mmol/AUryafn658.0-144.0 [facility] HealthcareComment on above:Performed By: #### [id number] ####[facility] (DEFAULT)[address] [place] [address] 16224Oomx nitrogen [Mass/Vol]17 mg/dLNormal8-26Kindred HealthcareComment on above:Performed By: #### [id number] ####[facility] (DEFAULT)[address] [place] [address] 54785Fzub nitrogen/Creatinine [Mass ratio]19.0 mg/mgHigh4.6-16.2[facility] HospitalComment on above:Performed By: #### [id number] ####[facility] (DEFAULT)[address] [place] [address] 86117Tiobx Redon 96-28-3989Qidi CollectedYesInvalid Interpretation CodeKindred HealthcareComment on above: Performed By: #### [id number], [id number] #### [facility] (DEFAULT) [address] [place] [address] 04647Ommwvdjki Patient Summaryon 62-45-1357Ekhhzxmpf Patient Summary[address] [address] Patient Discharge Instructions Name: LINO PETERS Jr : 1950 Patient Address: [address] [place] [address] Primary Care Provider: Name: HOLA VILLAFUERTE After you are discharged if you find you have any questions, please, call [phone] ext [phone] to speak to a nurse. Discharge Diagnosis: Weakness Prescription Information: If you have been given a prescription for narcotics, seek immediate medical attention if you have any difficulty breathing or any sudden status changes such as confusion andsleepiness. If you or anyone you know is experiencing suicidal thoughts, mental health, alcohol and/or drug addiction problems; contact the Mental Health & Recovery [facility] 15/01 Crisis Hotline -Text 4HZRA to 873547. If you received any narcotics, sedation, or [...] business decisions or sign any legal documents [facility] would like to thank you for allowing us to assist you with your healthcare needs.The following includes patient education materials and information regarding your injury/illness. LINO PETERS Jr has been given the following list of follow-up instructions, prescriptions,and patient education materials: Follow-up Instructions With: Address: When: JOSE DE JESUS HOWE [address] [place] [address] Business (1) 05/10/2021 1:00 PM With: Address: When: [place] [address] Appt: Tuesday, April 13, 2021 at 2:00 pm 04/13/2021 2:00 PM With: Address: When: HOLA VILLAFUERTE [address] [place], [place] [id number] Business (1) Medications During the course of your visit, your medication list was updated with the most current information. The details of those changes are reflected below: New Medications [facility], [address] [place] [address] [id number], [phone] apixaban (Eliquis 5 mg oral tablet) 1 [...] a kind of gallbladder disease. The gallbladder isan organ (more content not included)...[facility] PTon 71-87-4482TGK Coag (PPP) [Relative time]2.60 {INR}High0.91-1.11[facility] HealthcareComment on above:Performed By: #### [id number], [id number] #### [facility] (DEFAULT) [address] [place] [address] 09491KM44.8 second(s)High9.7-11.8Kind[facility] HealthcareComment on above:Performed By: #### [id number], [id number] #### [facility] (DEFAULT) [address] [place] [address] 03569Mzeviytn Note - Nurseon 35-89-6656Gsapolxf Note - Nurse Ultrasound being done. [Electronically Signed on: 03/17/2021 07:30 EDT] Nya Xiong RN [Verified on: 03/17/2021 07:30 EDT] Nya Xiong RNNoACMC Healthcare System Liveron 33-33-5233JG LiverEXAM: US Liver HISTORY: elevated liver enzymes COMPARISON: [...] Italo Morataya MD 03/17/21 4:10 pm Technologist: [facility].Auto Diff 1on 88-59-1540Uepg [place] %9 % Normal1-12Kindred HealthcareComment on above:Performed By: #### [id number], [id number] #### [facility] (DEFAULT) [address] [place] [address] 71006Uxji Abs#0.0 g51Zrdbfw1.0-0.2MSt. Mary's Medical Center, Ir[place] CampusComment on above:Performed By: #### [id number], [id number] #### [facility] (DEFAULT) [address] [place] [address] 22439Kitqrvask/100 WBC (Bld)0.6 %Normal0.2-2.0[facility] Comment on above:Performed By: #### [id number], [id number] #### [facility] (DEFAULT) [address] [place] [address] 09270Wdn Abs#0.2 r49Vskrnt8.0-0.4[facility] HospitalComment on above:Performed By: #### [id number], [id number] #### [facility] (DEFAULT) [address] [place] [address] 33202Ftppoyaixxb/100 WBC (Bld)3.8 %Normal0.9-4.0[facility] HospitalComment on above:Performed By: #### [id number], [id number] #### [facility] (DEFAULT) [address] [place] [address] 99532Lmvvb Abs#0.9 f16Gnu8.3-2.9[facility] HospitalComment on above:Performed By: #### [id number], [id number] #### [facility] (DEFAULT) [address] [place] [address] 65848Pupfukckgcq/100 WBC (Bld)14 %Nvipsx12-95[facility] Comment on above:Performed By: #### [id number], [id number] #### [facility] (DEFAULT) [address] [place] [address] 66131Lxdw Abs#0.6 k10Alrlra2.0-0.8[facility] HospitalComment on above:Performed By: #### [id number], [id number] #### [facility] (DEFAULT) [address] [place] [address] 02825Kgwj Abs#4.6 h87Rnrhfl9.5-9.2Magrpromedica bay park hospital HospitalComment on above:Performed By: #### [id number], [id number] #### [facility] (DEFAULT) [address] [place] [address] 46698Xhrhidxnaen/100 WBC (Bld)73 %Pdrsvw16-48Vhrjnbta Hospital Comment on above:Performed By: #### [id number], [id number] #### [facility] (DEFAULT) [address] [place] [address] 95404TSC w/ Auto Diffon 51-66-2459Yxmynhonknm distribution width (RBC) [Ratio]15.1 %High11.5-15.0[facility] HospitalComment on above: Performed By: #### [id number], [id number] #### [facility] (DEFAULT) [address] [place] [address] 60172Cznujfxmzl (Bld) [Volume fraction]36.9 %Vjefhj68.8-51.9 [facility] HealthcareComment on above:Performed By: #### [id number], [id number] #### [facility] (DEFAULT) [address] [place] [address] 18080Dyilzrnwtx (Bld) [Mass/Vol]12.1 g/dSMpxpus25.8-17.7 [facility] HealthcareComment on above:Performed By: #### [id number], [id number] #### [facility] (DEFAULT) [address] [place] [address] 71507Hqsfo WBC6.4 i72Dipyspn Interpretation CodeKindred HealthcareComment on above:Performed By: #### [id number], [id number] #### [facility] (DEFAULT) [address] [place] [address] 82464Ekp Diff?AutoNormalKindred HealthcareComment on above: Performed By: #### [id number], [id number] #### [facility] (DEFAULT) [address] [place] [address] 67656HBM (RBC) [Entitic mass]25 qwLqzdcp56-71Cnrvdcsi Hospital Comment on above:Performed By: #### [id number], [id number] #### [facility] (DEFAULT) [address] [place] [address] 48721OZYN (RBC) [Mass/Vol]33 g/cLKguwqz58-50Vixsvtio Hospital Comment on above:Performed By: #### [id number], [id number] #### [facility] (DEFAULT) [address] [place] [address] 35354FRA (RBC) [Entitic vol]76 eWKql77-481Asfkcffp Hospital Comment on above:Performed By: #### [id number], [id number] #### [facility] (DEFAULT) [address] [place] [address] 68372Qvlazixv480 i17Cfmuyk435-834Gnxvdosj HospitalComment on above:Performed By: #### [id number], [id number] #### [facility] (DEFAULT) [address] [place] [address] 32371Dztrzuka mean volume (Bld) [Entitic vol]9.3 fLNormal 6.3-10.2Magrpromedica bay [facility] hospital HospitalComment on above:Performed By: #### [id number], [id number] #### [facility] (DEFAULT) [address] [place] [address] 60642WXR0.88 h64Xsswoz2.70-5.30[facility] HospitalComment on above:Performed By: #### [id number], [id number] #### [facility] (DEFAULT) [address] [place] [address] 44856SXR4.4 a36Dlpurw3.5-10.5[facility] HospitalComment on above: Performed By: #### [id number], [id number] #### [facility] (DEFAULT) [address] [place] [address] 61248XVX Standardon 02-48-7163cJQZ Non AA>60Invalid Interpretation CodeDayton Va Medical Center HospitalComment on above:Performed By: #### [id number] ####[facility] (DEFAULT)[address] [place] [address] 86908vDFZ AA>60Invalid Interpretation CodeDayton Va Medical Center HospitalComment on above: Result Comment: Chronic Kidney disease could be indicated at eGFRs of less than 60 ml/min/1.73m2. Kidney Failure is indicated at less than 15 ml/min/1.73m2 Performed By: #### [id number] ####[facility] (DEFAULT)[address] [place] [address] 68181Wndgfsk [Mass/Vol]2.9 g/dLLow3.5-5.0[facility] HospitalComment on above:Performed By: #### [id number] ####[facility] (DEFAULT)[address] [place] [address] 75499Selkoio/Globulin [Mass ratio]0.8 {ratio}Low1.4-2.6Magrpromedica [facility] hospital HospitalComment on above:Performed By: #### [id number] ####[facility] (DEFAULT)[address] [place] [address] 95291Lzk Phos92 IU/CScam58-15Pfgosqep HospitalComment on above:Performed By: #### [id number] ####[facility] (DEFAULT)[address] [place] [address] 21126NAH [Catalytic activity/Vol]181.0 U/LHigh17.0-63.0[facility] HospitalComment on above: Performed By: #### [id number] ####[facility] (DEFAULT)[address] [place] [address] 20861Gabzd gap [Moles/Vol]17.0 mmol/LNormal5.0-19.0 [facility] HospitalComment on above:Performed By: #### [id number] ####[facility] (DEFAULT)[address] [place] [address] 37038NDU [Catalytic activity/Vol]245 U/SDjvn23-71Gqnnkknp HospitalComment on above:Performed By: #### [id number] ####[facility] (DEFAULT)[address] [place] [address] 99399Bqzk Total1.1 mg/dLNormal0.3-1.2Magrpromedica bay park hospital HospitalComment on above:Performed By: #### [id number] ####[facility] (DEFAULT)[address] [place] [address] 17906Wqapqoc [Mass/Vol]8.4 mg/dLLow8.9-10.3Magrpromedica bay park hospital HospitalComment on above:Performed By: #### [id number] ####[facility] (DEFAULT)[address] [place] [address] 23919Cblkigwz [Moles/Vol]99 mmol/PEsq848-595Waafwtcn HospitalComment on above:Performed By: #### [id number] ####[facility] (DEFAULT)[address] [place] [address] 54748DH5 [Moles/Vol]23 mmol/LNormal 21-32Mngrpromedica bay park hospital HospitalComment on above:Performed By: #### [id number] ####[facility] (DEFAULT)[address] [place] [address] 74807Ehavvqvsro [Mass/Vol]0.90 mg/dLNormal0.90-1.30[facility] HospitalComment on above:Performed By: #### [id number] ####[facility] (DEFAULT)[address] [place] [address] 78144Iitsqmhr (S) [Mass/Vol]3.8 g/dLNormal1.5-4.3MSt. [facility] Comment on above:Performed By: #### [id number] ####[facility] (DEFAULT)[address] [place] [address] 02909Cmgvyjg [Mass/Vol]99.0 mg/dL Uzvazp61.0-118.0[facility] HospitalComment on above:Performed By: #### [id number] ####[facility] (DEFAULT)[address] [place] [address] 85597Fdxblfadjy 274 mOsm/LInvalid Interpretation CodeKindred HealthcareComment on above:Performed By: #### [id number] ####[facility] (DEFAULT)[address] [place] [address] 72571Dzovtmday [Moles/Vol]3.3 mmol/LLow3.6-5.1MSt. [facility] Comment on above:Performed By: #### [id number] ####[facility] (DEFAULT)[address] [place] [address] 89426Nribvio [Mass/Vol]6.7 g/dLNormal 6.5-8.1Mtrumbull regional medical center HospitalComment on above:Performed By: #### [id number] ####[facility] (DEFAULT)[address] [place] [address] 75991Yflemf [Moles/Vol]136.0 mmol/OXqwwwt990.0-144.0[facility] HospitalComment on above: Performed By: #### [id number] ####[facility] (DEFAULT)[address] [place] [address] 67642Tbtn nitrogen [Mass/Vol]17 mg/dLNormal8-26[facility] HospitalComment on above:Performed By: #### [id number] ####[facility] (DEFAULT)[address] [place] [address] [place] [address]Kwdc nitrogen/Creatinine [Mass ratio]19.0 mg/mgHigh4.6-16.2MSt. [facility] CampusComment on above:Performed By: #### [id number] ####[facility] (DEFAULT)[address] [place], [place] [address]Aqamxobdu Noteon 23-53-1936Smkdufbaq NoteSupplements d/c today by program writer; had not been taking them. Pt with overall improvement of appetite,currently on a regular diet with last 24+hrs avg 75-100% of meals. Will monitor for changes. [facility] CenterPharmacy Noteon 42-48-1306Lxibimjs NoteI have personally reviewed this patient's current medication [...] or Prophylaxis: Warfarin -discontinued as patient is non- compliant and will have difficulty with management. Transitioning [...] Smith PharmD [Verified on: 03/16/2021 12:29 EDT] Tara Smith PharmDElyria Memorial HospitalExCHRISTUS Spohn Hospital Alice 18-83-1835Zddv CollectedYesInvalid Interpretation [facility] Medical CenterComment on above: Performed By: #### [id number], [id number], [id number] #### [facility] (DEFAULT) [address] [place] [address] 20666Lgacgagri By: #### [id number], [id number], [id number] ####[facility] (DEFAULT)[address] [place] [address] 90453PLkh 38-59-4968OVW Coag (PPP) [Relative time]4.73 {INR}High0.91-1.11[facility] Comment on above:Performed By: #### [id number], [id number], [id number] ####[facility] (DEFAULT)[address] [place] [address] 02043HG22.4 second(s)High 9.7-11.8Magruder HospitalComment on above:Performed By: #### [id number], [id number], [id number] ####[facility] (DEFAULT)[address] [place] [address] 12921Ksyxwmr Formson 28-33-5835Nqtpghg Forms [id number]#1.00OTGTIFFNormMercy Health Urbana HospitalExtra Pearl 07-75-0963Oqss CollectedYesInvalid Interpretation [facility] Comment on above:Performed By: #### [id number], [id number], [id number], [id number] ####[facility] (DEFAULT)[address] [place] [address] 85019Ksqkzfr Function Panel Standardon 32-07-8224Jznvhsr [Mass/Vol]2.9 g/dLLow3.5-5.0[facility]red HealthcareComment on above:Performed By: #### [id number], [id number], [id number], [id number] ####[facility] (DEFAULT)[address] [place] [address] 94581Ibbette/Globulin [Mass ratio]0.8 {ratio}Low1.4-2.6MSt. Mary's Medical Center, Ironton CampusComment on above:Performed By: #### [id number], [id number], [id number], [id number] ####[facility] (DEFAULT)[address] [place] [address] 80514Sen Phos68 IU/PDddskt54-25Irkwihed HospitalComment on above:Performed By: #### [id number], [id number], [id number], [id number] ####[facility] (DEFAULT)[address] [place] [address] 99317UHJ [Catalytic activity/Vol]120.0 U/LHigh17.0-63.0 Kindred HealthcareComment on above:Performed By: #### [id number], [id number], [id number], [id number] ####[facility] (DEFAULT)[address] [place] [address] 89702PBN [Catalytic activity/Vol]186 U/SGauw59-69Qbqfgody Hospital Comment on above:Performed By: #### [id number], [id number], [id number], [id number] ####[facility] (DEFAULT)[address] [place] [address] 89810Jire Direct0.20 mg/dLNormal0.10-0.50Maket[facility] HospitalComment on above:Performed By: #### [id number], [id number], [id number], [id number] ####[facility] (DEFAULT)[address] [place] [address] 51734Temv Indirect1.1 mg/dLHigh 0.2-0.8M[facility] day[facility] HospitalComment on above:Performed By: #### [id number], [id number], [id number], [id number] ####[facility] (DEFAULT)[address] [place] [address] 74391Diog Total1.3 mg/dLHigh0.3-1.2MSt. Mary's [facility] Comment on above:Performed By: #### [id number], [id number], [id number], [id number] ####[facility] (DEFAULT)[address] [place] [address] 59222Kukenlxd (S) [Mass/Vol]3.8 g/dLNormal1.5-4.3Mtrumbull regional medical center HospitalComment on above:Performed By: #### [id number], [id number], [id number], [id number] ####[facility] (DEFAULT)[address] [place] [address] 92401Pexambc [Mass/Vol]6.7 g/dLNormal 6.5-8.1Mtrumbull regional medical center HospitalComment on above:Performed By: #### [id number], [id number], 8541135, [id number] ####[facility] (DEFAULT)[address] [place] [address] 22390Cvcmckkkd Noteon 55-55-5376Azmqcooby NotePt continues with poor rickie and po intake. Averaging 0-75% of [...] pt tray instead; will add if pt agreeable.Normal [facility] 06-62-7942MPB Coag (PPP) [Relative time]3.01 {INR}High 0.91-1.11[facility]red HealthcareComment on above:Performed By: #### [id number], [id number], [id number], [id number] ####[facility] (DEFAULT)[address] [place] [address] 09428CD16.8 second(s)High9.7-11.8Kindred HealthcareComment on above:Performed By: #### [id number], [id number], [id number], [id number] ####[facility] (DEFAULT)[address] [place] [address] 22887Inqcmrcd Noteon 61-06-0730Kxgbsats NoteI have personally reviewed this patient's current medication [...] A. Fib presenting for IP anticoagulation monitoring andadjustment per pharmacy to dose protocol. This patient [...] 14:20 June Smith PharmD. Risk factors reviewed. Continueto monitor patient's pain control. [Electronically Signed on: 03/14/2021 14:38 EDT] June Smith PharmD [Verified on: 03/14/2021 14:38 EDT] June Smith PharmDKettering Health Troy 59-21-4460Dtiu CollectedYesInvalid Interpretation [facility] Medical CenterComment on above: Performed By: #### [id number], [id number], [id number] ####[facility] (DEFAULT)[address] 05-69-3272RAU Coag (PPP) [Relative time]1.87 {INR}High0.91-1.11[facility]red HealthcareComment on above: Performed By: #### [id number], [id number], [id number] ####[facility] (DEFAULT)[address] [place], [place] [address]QE64.6 second(s)High9.7-11.8 Kindred HealthcareComment on above:Performed By: #### [id number], [id number], [id number] ####[facility] (DEFAULT)[address] [place] [address] Pharmacy Noteon 11-88-0837Fwdcuvto NoteThigina is a 70 Yearsyo MALE with a [...] [Verified on: 03/13/2021 09:43 EDT] Nya Paulino [facility] HospitalProgress Note - Nurseon 67-68-6147Fobrgssr Note - Nursepatient lying in bed laughing at commercials on tv. Dried blood under patient's nose. Patient givendamp wash cloth to clean nose and he cleans his hands and holds wash cloth. Tissues with blood spots on them in a line from bathroom to bed on the floor. Patient instructed to throw tissues into the g arbage bag on his overbed table. [Electronically Signed on: 03/13/2021 17:01 EDT] Nya Xiong RN [Verified on: 03/13/2021 17:01 EDT] Nya Xiong RNKettering Health Hamilton Note - NurseIn bed with arms behind head and legs crossed watching tv. [Electronically Signed on: 03/13/2021 15:09 EDT] Nya Xiong RN [Verified on: 03/13/2021 15:09 EDT] Nya Xiong RNKettering Health Hamilton Note - NursePuts marketing communications associate light in bathroom. Relates bloody nose. Dr. Keller informed and order received for afrin. Very mild bleeding noted. stops when tissue applied [Electronically Signed on: 03/13/2021 15:09 EDT] Nya Xiong RN [Verified on: 03/13/2021 15:09 EDT] Nya Xiong RNKettering Health Hamilton Note - NurseNurse enters room and patient is lying in bed watching tv. Room has odor of urine. Patient informedhe is out of isolation due to quarantine [...] [Verified on: 03/13/2021 11:13 EDT] Nya Xiong RNNoCleveland Clinic Mercy Hospital Standardon 40-50-1867bHFI Non AA>60 Invalid Interpretation [facility] CenterComment on above:Performed By: #### [id number], [id number], [id number] ####[facility] (DEFAULT)[address] [place] [address] 52275aPLM AA>60Invalid Interpretation [facility] on above:Result Comment: Chronic Kidney disease could be indicated at eGFRs of less than 60 ml/min/1.73m2. Kidney Failure is indicated at less than 15 ml/min/1.64x6Vbskyymax By: #### [id number], [id number], [id number] ####[facility] (DEFAULT)[address] [place] [address] 27894Fnvku gap [Moles/Vol]20.0 mmol/LHigh5.0-19.0Kindred HealthcareComment on above:Performed By: #### [id number], [id number], [id number] ####[facility] (DEFAULT)[address] [place] [address] 18776Eleesuk [Mass/Vol]8.1 mg/dLLow8.9-10.3 Kindred HealthcareComment on above:Performed By: #### [id number], , ####[facility] (DEFAULT)[address] [place] [address] 75291Opjliexe [Moles/Vol]94 mmol/POxl251-250Vpogzdfd HospitalComment on above: Performed By: #### [id number], , ####[facility] (DEFAULT)[address] [place] [address] 76468PQ8 [Moles/Vol]22 mmol/LNormal 21-32[facility] HospitalComment on above:Performed By: #### [id number], , ####[facility] (DEFAULT)[address] [place] [address] 18160Vuvqkzoloe [Mass/Vol]1.05 mg/dLNormal0.90-1.30[facility] HospitalComment on above:Performed By: #### [id number], , ####[facility] (DEFAULT)[address] [place] [address] 42849Jghlraj [Mass/Vol]91.0 mg/dL Gherir32.0-118.0[facility] HospitalComment on above:Performed By: #### [id number], , ####[facility] (DEFAULT)[address] [place] [address] 69362Fsjawmivwv031 mOsm/LInvalid Interpretation CodeDayton Va Medical Center HospitalComment on above:Performed By: #### [id number], , ####[facility] (DEFAULT)[address] [place] [address] 42944Skfdsktgl [Moles/Vol]3.8 mmol/LNormal3.6-5.1Mtrumbull [facility] medical center HospitalComment on above:Performed By: #### [id number], , ####[facility] (DEFAULT)[address] [place] [address] 98363Eqhyjc [Moles/Vol]132.0 mmol/ROlr267.0-144.0 [facility] HospitalComment on above:Performed By: #### [id number], [id number], [id number] ####[facility] (DEFAULT)[address] [place], [place] [address]Pdkp nitrogen [Mass/Vol]16 mg/dLNormal8-26Kindred HealthcareComment on above:Performed By: #### [id number], [id number], [id number] ####[facility] (DEFAULT)[address] [place] [address] 36486Efng nitrogen/Creatinine [Mass ratio]15.0 mg/mgNormal4.6-16.2Mtrumbull regional medical center HospitalComment on above:Performed By: #### [id number], [id number], ####[facility] (DEFAULT)[address] [place] [address] 85457Vasvm Pearl 63-72-4267Inlz CollectedYesInvalid Interpretation CodeKindred HealthcareComment on above:Performed By: #### [id number], , ####[facility] (DEFAULT)[address] [place] [address] 14746Mpvfdunsg Noteon 25-21-2396EVHE-CoV-2 (COVID-19) RNA ALEXI+probe Ql (Unsp spec)Pt admitted under Swing bed program d/t weakness r/t COVID, COVID colitis. Pt intially placed on a Regular diet, downgraded to clear liquids today d/t ongoing diarrhea, nausea. No wt hx available. Ensure Compact ordered TIDAC; adjusted to TIDWM vs being given before meals. Loperamide BID and PRN scheduled, would encourage trial of BRAT type diet to provide more nutrients along w/ probiotic and aswell as Vit C, Vit D supplementation. Na, Ca low, suspect d/t suboptimal intake. Pt appears at highnutrition risk at this time d/t ongoing diarrhea with poor po; full nutrition assessment completed.Will continue to monitor.[facility] 87-37-0105OHL Coag (PPP) [Relative time] 1.21 {INR}High0.91-1.11[facility]red HealthcareComment on above:Performed By: #### [id number], [id number], [id number] ####[facility] (DEFAULT)[address] [place], [place] [address]OD85.0 second(s)High9.7-11.8Kindred HealthcareComment on above:Performed By: #### [id number], [id number], [id number] ####[facility] (DEFAULT)[address] [place], [place] [address]Xvyerxyo Noteon 01-10-3394Hqnahizv NoteI have reviewed this patient's current medication list [...] [Verified on: 03/12/2021 13:39 EDT] Jaison Ireland RPh, RNCleveland Clinic Lutheran Hospital NoteThigina is a 70 Years MALE with a history of A. Fib. and Covid 19 positive presenting with anticoagulation monitoring and adjustment. The patient is currently taking warfarin. 5mg daily at home. No doseof warfarin was given on 03/11 the day [...] [Verified on: 03/12/2021 11:49 EDT] Jaison Ireland RPh, RNMercy Health Springfield Regional [facility] Note - Nurseon 03-12-2021 Progress Note - NurseLying in bed laughing at tv when nurse enters room. Given clear liquid tray. Takes medications without difficulty.. Slow to get up out of bed but able to move independently with much encouragement. [Electronically Signed on: 03/12/2021 16:17 EDT] Wammes, Nya RN [Verified on: 03/12/2021 16:17 EDT] Nya Xiong RNMetroHealth Parma Medical CenterProgress Note - NursePatient with flat affect during assessment. Up to BR with SBA for diarrhea stool. Patient states I am so sick . Ambulates back to bed. Fine tremors of hands noted. Relates has had this and his fatherhad Parkinson's. No eye contact. Nurse checks if patient has any other needs before leaving room. Patient puts marketing communications associate light 30 min later asking nurse to pull his blankets up. Encouraged to pull blankets up that are located just below his knees on his bed. [Electronically Signed on: 03/12/2021 13:15 EDT] Nya Xiong RN [Verified on: 03/12/2021 13:15 EDT] Nya Xiong RNMetroHealth Parma Medical CenterProvider Letteron 63-54-5577Dwzebfqv LetterJune 2020November 30, 2020 LINO PETERS JR [address] [place] [phone] LINO PETERS JR 1950 Dear Mr. Peters, You missed your scheduled appointment with Dr. Michel on 11/30/2020 and the purpose of this letter is to inform you of our *No Show Policy*. Our appointment slots fill rapidly and when we have a no show appointment that time is lost. We could have used that time slot to care for a patient who needed tosee one of our providers. Therefore, we ask that you call 24 hours in advance to cancel your appointment. After your second no show within a twelve (12) month period, you will be assessed a $30 charge. This policy is in place so that we can meet the needs of all of our patients and we do appreciate your understanding. Sincerely, [facility] [address] [place] [address] XuuebwTqppjkMercy HospitalBasic Metabolic Panelon 32-50-9756Pfyeaje [Mass/Vol]9.1 mg/dLNormal8.2-10.2FMartins Ferry HospitalComment on above:Performed By: #### CKMB, CK, TROP #### [facility] [address] [place] [address] USAChloride [Moles/Vol]99 mmol/XWljjtw78-496ZlegjchmoMercy Health Allen HospitalComment on above:Performed By: #### CKMB, CK, TROP #### [facility] [address] [place] [address] USACO2 [Moles/Vol]23.7 mmol/GBzhvnk94.0-30.0[facility] HospitalComment on above:Performed By: #### CKMB, CK, TROP #### [facility] [address] [place] [address] USACreatinine [Mass/Vol]1.30 mg/dLHigh0.64-1.27[facility] HospitalComment on above:Performed By: #### CKMB, CK, TROP #### [facility] [address] [place] [address] USACreatinine Clr Calc Axrwhxod98.88NoCommunity Regional Medical CenterComment on above:Result Comment: PERFORMED BY: [facility] [address] [facility]. [place] [id number] PATHOLOGIST GROUND CREW SUPERVISOR LE SAUNDERS M.D.Performed By: #### CKMB, CK, TROP #### [facility] [address] [place] [address] USAEstimated GFR ( Francy> 60NoCommunity Regional Medical CenterComment on above:Result Comment: GFR estimated reference range: According to KDOQI guidelines, <60 ml/min/1.73m2 is sufficient to diagnose a patient with chronic kidney disease.Performed By: #### CKMB, CK, TROP #### [facility] [address] [place] [id number] USAEstimated GFR (Non- Zd32AifnyoMhesolzfyMercy Health Allen HospitalComment on above:Performed By: #### CKMB, CK, TROP #### [facility] [address] [place] [address] USAGlucose [Mass/Vol]104 mg/cFLjij38-382McoyfhpwmMercy Health Allen HospitalComment on above:Result Comment: Random Glucose Reference Range is dependent on time and content of last meal. Glucose of more than 200 mg/dL in a nonstressed, ambulatory subject supports the diagnosis of Diabetes Mellitus. ADA recommended reference rangePerformed By: #### CKMB, CK, TROP #### [facility] [address] [place] [address] USAPotassium [Moles/Vol]3.7 mmol/LNormal3.5-5.1FMartins Ferry HospitalComment on above:Performed By: #### CKMB, CK, TROP #### [facility] [address] [place] [address] USASodium [Moles/Vol]135 mmol/NNhb525-859CihanxwihMercy Health Allen HospitalComment on above:Performed By: #### CKMB, CK, TROP #### [facility] [address] [place] [address] USAUrea nitrogen [Mass/Vol]27 mg/dLHigh9-23Mer[facility] HospitalComment on above:Performed By: #### CKMB, CK, TROP #### [facility] [address] [place] [id number] USABasic Metabolic Panelon 27-67-0526Zwalcmz [Mass/Vol]9.0 mg/dLNormal8.2-10.2FMartins Ferry HospitalComment on above:Performed By: #### CBC, PTT, PT #### [facility] [address] [place] [address] USAChloride [Moles/Vol]103 mmol/DUufkbo59-111XwffqifcqMercy Health Allen HospitalComment on above:Performed By: #### CBC, PTT, PT #### [facility] [address] [place] [address] USACO2 [Moles/Vol]21.3 mmol/LLow22.0-30.0[facility] HospitalComment on above:Performed By: #### CBC, PTT, PT #### [facility] [address] [place] [address] USACreatinine [Mass/Vol]1.16 mg/dLNormal0.64-1.27[facility] HospitalComment on above:Performed By: #### CBC, PTT, PT #### [place] [address] USACreatinine Clr Calc Qrutupul64.73Our [facility] Mercy HospitalComment on above:Result Comment: PERFORMED BY: [place] [address] PATHOLOGIST GROUND CREW SUPERVISOR LE SAUNDERS M.D.Performed By: #### CBC, PTT, PT #### [place] [address] USAEstimated GFR ( Francy> 60[facility] Mer[facility] HospitalComment on above:Result Comment: GFR estimated reference range: According to KDOQI guidelines, <60 ml/min/1.73m2 is sufficient to diagnose a patient with chronic kidney disease.Performed By: #### CBC, PTT, PT #### [place] [address] USAEstimated GFR (Non- Am> 60[facility] HospitalComment on above:Performed By: #### CBC, PTT, PT #### [place] [address] USAGlucose [Mass/Vol]103 mg/oHRytz06-953BwjcbhvgwMercy Health Allen HospitalComment on above:Result Comment: Random Glucose Reference Range is dependent on time and content of last meal. Glucose of more than 200 mg/dL in a nonstressed, ambulatory subject supports the diagnosis of Diabetes Mellitus. ADA recommended reference rangePerformed By: #### CBC, PTT, PT #### [address] [place] [address] USAPotassium [Moles/Vol]3.9 mmol/LNormal3.5-5.1FMartins Ferry HospitalComment on above:Performed By: #### CBC, PTT, PT #### [facility] [address] [place] [address] USASodium [Moles/Vol]136 mmol/HFcepbj551-903TtiryujrmMercy Health Allen HospitalComment on above:Performed By: #### CBC, PTT, PT #### [facility] [address] [place] [address] USAUrea nitrogen [Mass/Vol]21 mg/dLNormal9-23Mer[facility] Allen HospitalComment on above:Performed By: #### CBC, PTT, PT #### [facility] [address] [place] [address] USAC. Difficile DNA Amplificationon 08-20-2020. Difficile DNA Amplification> or = to 3 loose/watery stools in the last 24 HRS? Y Is patient on promotility agents or tube feeding? N CDT DNA Results Negative for Toxigenic C. Difficile by DNA Amplification Reference range = Negative PERFORMED BY: [place] [address] PATHOLOGIST GROUND CREW SUPERVISOR LE SAUNDERS M.D.NormalMercy Health Allen HospitalComment on above: Performed By: #### CBC, PTT, PT #### [place] [id number] USAComplete Blood Count Auto Diffon 92-23-8917Lfsbnjtwh (Bld) [#/Vol]0.1 10*3/uLNormal0.0-0.2FMartins Ferry HospitalComment on above:Result Comment: PERFORMED BY: [place] [address] PATHOLOGIST GROUND CREW SUPERVISOR LE SAUNDERS M.D.Performed By: #### CBC, PTT, PT #### [address] [place] [address] USABasophils/100 WBC (Bld)1.1 %Normal.[facility] HospitalComment on above:Performed By: #### CBC, PTT, PT #### [facility] [address] [place] [address] USAEosinophils (Bld) [#/Vol]0.3 10*3/uLNormal0.0-0.45 [facility] HospitalComment on above:Performed By: #### CBC, PTT, PT #### [facility] [address] [place] [address] USAEosinophils/100 WBC (Bld)3.5 %Normal.[facility] HospitalComment on above:Performed By: #### CBC, PTT, PT #### [place] [address] USAErythrocyte distribution width (RBC) [Ratio]14.2 %Normal 12.0-14.8[facility] Allen HospitalComrehabilitation institute of [place] on above:Performed By: #### CBC, PTT, PT #### [facility] [address] [place] [address] USAHematocrit (Bld) [Volume fraction]40.1 %Adqkip39.8-50.0 [facility] HospitalComrehabilitation institute of [place] on above:Performed By: #### CBC, PTT, PT #### [place] [address] USAHemoglobin (Bld) [Mass/Vol]13.6 g/zPYyzotl22.0-17.0 [facility] HospitalComrehabilitation institute of [place] on above:Performed By: #### CBC, PTT, PT #### [facility] [address] [place] [address] USALymphocytes (Bld) [#/Vol]1.0 10*3/uLNormal1.00-4.8 [facility] HospitalComrehabilitation institute of [place] on above:Performed By: #### CBC, PTT, PT #### [facility] [address] [place] [id number] USALymphocytes/100 WBC (Bld)11.1 %Normal.[facility] Allen HospitalComment on above:Performed By: #### CBC, PTT, PT #### [facility] [address] (RBC) [Entitic mass]26.4 pgLow27.5-35.2FMartins Ferry HospitalComment on above:Performed By: #### CBC, PTT, PT #### [facility] [address] [place], [place] [address]V (RBC) [Entitic vol]77.8 fLLow83.5-101Mer[facility] Allen HospitalComment on above:Performed By: #### CBC, PTT, PT #### [place] [address] USAMean Corpuscular HGB Conc34.0 g/mLXrcduc20.5-35.6FMartins Ferry HospitalComment on above:Performed By: #### CBC, PTT, PT #### [place] [address] USAMonocytes (Bld) [#/Vol]0.8 10*3/uLNormal0.0-0.8[facility] HospitalComment on above:Performed By: #### CBC, PTT, PT #### [place] [address] USAMonocytes/100 WBC (Bld)8.6 %Normal.[facility] HospitalComment on above:Performed By: #### CBC, PTT, PT #### [place] [address] USANeutrophils (Bld) [#/Vol]6.8 10*3/uLNormal1.8-7.7FMartins Ferry HospitalComment on above:Performed By: #### CBC, PTT, PT #### [place] [address] USANeutrophils/100 WBC (Bld)75.7 %Normal.[facility] HospitalComment on above:Performed By: #### CBC, PTT, PT #### [place] [address] USANucleated RBC/100 WBC (Bld) [Ratio]0.1 %Normal0-0.5 [facility] HospitalComment on above:Performed By: #### CBC, PTT, PT #### [facility] [address] [place] [address] USAPlatelet mean volume (Bld) [Entitic vol]7.4 fLNormal 6.6-10.1FMartins Ferry HospitalComment on above:Performed By: #### CBC, PTT, PT #### [facility] [address] [place] [address] USAPlatelets (Bld) [#/Vol]289 10*3/yHEtbjke322-128TberafvudMercy Health Allen HospitalComment on above:Performed By: #### CBC, PTT, PT #### [facility] [address] [place] [address] USARBC (Bld) [#/Vol]5.16 10*6/uLNormal3.90-5.60[facility] HospitalComment on above:Performed By: #### CBC, PTT, PT #### [facility] [address] [place] [address] USAWBC (Bld) [#/Vol]9.0 10*3/uLNormal4.5-11.0[facility] Allen HospitalComment on above:Performed By: #### CBC, PTT, PT #### [facility] [address] [place] [address] USAECH echo transthoracicon 53-77-1201PBZ echo transthoracic [facility] [address] [place] [address] [place] [address] Echocardiogram Signed Patient: Lino Peters Jr MR#: [id number] : 1950 Acct:[id number] Age/Sex: 70 / M ADM Date: 08/19/20 Loc: 3 Room: [address] [place] [address] Type: ADM IN Attending Dr: Padmini Germain MD Ordering Provider: NAKUL Medina Date of Service: 08/19/20 ECH/ECH echo transthoracic: shortness of breath Copies to: NAKUL Medina DO Height: 65 in Weight: 229 lb Performed By: RAYMUNDO Polk BSA: 2.1 m2 BP: 122/71 mmHg HR: 76 Reason For Study: shortness of breath History: CAD. HLD. [place]. PCI. Family history of CAD. Interpretation Summary [...] Transcribed By: GAYE 08/20/201201 Dictated By: Ronald Fong DO 08/20/2025 Signed By: 08/20/20 120NormSouthern Ohio Medical CenterTroponin I(TnI)on 35-05-4999Tclcefeo I.cardiac [Mass/Vol]4.57 ng/mLOff scale high0-0.02Mer[facility] Health Allen HospitalComment on above:Result Comment: STEVE [place] Cut off value > or equal to 0.03 ng/mL in conjunction with clinical conditions of myocardial infarction. (www.escardio.org/guidelines) PERFORMED BY: [place] [address] PATHOLOGIST GROUND CREW SUPERVISOR LE SAUNDERS M.D.Performed By: #### CBC, PTT, PT #### [address] [address] USAB-Type Natriuretic Peptideon 83-56-8186Jkemvqekxab peptide B (Bld) [Mass/Vol]322.0 pg/mL32 Hudson StreetComment on above:Result Comment: PERFORMED BY: [place] [id number] PATHOLOGIST GROUND CREW SUPERVISOR LE SAUNDERS M.D.Performed By: #### CBC, PTT, PT #### [facility] [address] [place] [address] USABasic Metabolic Panelon 37-08-2775Gwtxnyw [Mass/Vol]8.8 mg/dLNormal8.2-10.2FMartins Ferry HospitalComment on above:Performed By: #### CBC, PTT, PT #### [address] [address] USAChloride [Moles/Vol]103 mmol/QPufhro85-873IeujbomwvMercy Health Allen HospitalComment on above:Performed By: #### CBC, PTT, PT #### [place] [address] USACO2 [Moles/Vol]18.6 mmol/LLow22.0-30.0Mercy Health Allen HospitalComment on above:Performed By: #### CBC, PTT, PT #### [facility] [address] [place] [address] USACreatinine [Mass/Vol]1.00 mg/dLNormal0.64-1.27Mer[facility] Health Allen HospitalComment on above:Performed By: #### CBC, PTT, PT #### [place] [address] USACreatinine Clr Calc Ejtzsjvi30.93NoCommunity Regional Medical CenterComment on above:Result Comment: PERFORMED BY: [place] [address] PATHOLOGIST GROUND CREW SUPERVISOR LE SAUNDERS M.D.Performed By: #### CBC, PTT, PT #### [place] [address] USAEstimated GFR ( Francy> 60Our Lady of Mercy HospitalComment on above:Result Comment: GFR estimated reference range: According to KDOQI guidelines, <60 ml/min/1.73m2 is sufficient to diagnose a patient with chronic kidney disease.Performed By: #### CBC, PTT, PT #### [place] [address] USAEstimated GFR (Non- Am> 60NoCommunity Regional Medical CenterComment on above:Performed By: #### CBC, PTT, PT #### [place] [address] USAGlucose [Mass/Vol]91 mg/pHBeimfb10-016EupeujenxMercy Health Allen HospitalComment on above:Result Comment: Random Glucose Reference Range is dependent on time and content of last meal. Glucose of more than 200 mg/dL in a nonstressed, ambulatory subject supports the diagnosis of Diabetes Mellitus. ADA recommended reference rangePerformed By: #### CBC, PTT, PT #### [facility] [address] [place] [address] USAPotassium [Moles/Vol]4.2 mmol/LNormal3.5-5.1FMartins Ferry HospitalComment on above:Performed By: #### CBC, PTT, PT #### [facility] [address] [place] [id number] USASodium [Moles/Vol]133 mmol/UGos974-239SxpwrongbMercy Health Allen HospitalComment on above:Performed By: #### CBC, PTT, PT #### [facility] [address] [place] [id number] USAUrea nitrogen [Mass/Vol]21 mg/dLNormal9-23Mercy Health Allen HospitalComment on above:Performed By: #### CBC, PTT, PT #### [facility] [address] [place] [id number] USACOVID-19 Antigenon 77-12-7384CBUXH-19 AntigenHealthcare Worker?: N Tyra Reference Tyra Reference Negative SARS-CoV+SARS-CoV-2 (COVID-19) Ag [Presence] in Respiratory specimen by Rapid immunoassay Negative for SARS Antigen by TAJ COVID19 Blank Space Tyra Disclaimer Negative results, from patients with [...] Disclaimer consistent with COVID-19. COVID19 Blank Space Tyra Disclaimer The Tyra SARS Antigen TAJ does not differentiate Tyra Disclaimer between SARS-CoV and SARS-CoV-2. COVID19 Blank Space Tyra Disclaimer This test was developed and its performance Tyra Disclaimer characteristic determined by [employer] and Tyra Disclaimer validated at [facility]. This Tyra Disclaimer test has not [...] is terminated or revoked sooner. PERFORMED BY: [facility] [place] [address] PATHOLOGIST GROUND CREW SUPERVISOR LE SAUNDERS M.D.NormalMercy Health Allen HospitalComment on above: Performed By: #### CBC, PTT, PT #### [facility] [address] [place] [id number] USACOVID-19 FRMCon 87-03-5834MDVU-CoV-2 (COVID-19) RNA ALEXI+probe Ql (Unsp spec)NegativeNormalNegativeMercy Health Allen Hospital Comment on above:Order Comment: Healthcare Worker?: NResult Comment: Testing for SARS-CoV-2 by RT-PCR This test was developed and its performance characteristics determined by [employer] and validated at the [facility]. This test has not been FDA [...] is terminated or revoked sooner. PERFORMED BY: [place] [address] PATHOLOGIST GROUND CREW SUPERVISOR LE SAUNDERS M.D.Performed By: #### CBC, PTT, PT #### [facility] [address] [place] [address] USAComplete Blood Count Auto Diffon 19-82-3851Rwcznpipg (Bld) [#/Vol]0.1 10*3/uLNormal0.0-0.2FMartins Ferry HospitalComment on above:Result Comment: PERFORMED BY: [place] [id number] PATHOLOGIST GROUND CREW SUPERVISOR JIANLAN SUN M.D.Performed By: #### CBC, PTT, PT #### [facility] [address] [place] [address] USABasophils/100 WBC (Bld)1.0 %Normal.Mer[facility] Allen HospitalComment on above:Performed By: #### CBC, PTT, PT #### [place] [address] USAEosinophils (Bld) [#/Vol]0.3 10*3/uLNormal0.0-0.45 [facility] HospitalComrehabilitation institute of [place] on above:Performed By: #### CBC, PTT, PT #### [place] [address] USAEosinophils/100 WBC (Bld)3.0 %Normal.Mer[facility] Allen HospitalComment on above:Performed By: #### CBC, PTT, PT #### [place] [address] USAErythrocyte distribution width (RBC) [Ratio]14.4 %Normal 12.0-14.8Mer[facility] HospitalComrehabilitation institute of [place] on above:Performed By: #### CBC, PTT, PT #### [place] [address] USAHematocrit (Bld) [Volume fraction]38.2 %Low38.8-50.0 [facility] HospitalComrehabilitation institute of [place] on above:Performed By: #### CBC, PTT, PT #### [place] [address] USAHemoglobin (Bld) [Mass/Vol]12.7 g/dLLow13.0-17.0Mer[facility] HospitalComrehabilitation institute of [place] on above:Performed By: #### CBC, PTT, PT #### [place] [address] USALymphocytes (Bld) [#/Vol]1.2 10*3/uLNormal1.00-4.8 [facility] HospitalComrehabilitation institute of [place] on above:Performed By: #### CBC, PTT, PT #### [place] [address] USALymphocytes/100 WBC (Bld)13.2 %Normal.[facility] Allen HospitalComment on above:Performed By: #### CBC, PTT, PT #### [facility] [address]H (RBC) [Entitic mass]25.9 pgLow27.5-35.2FMartins Ferry HospitalComment on above:Performed By: #### CBC, PTT, PT #### [facility] [address] [place] [address] USAV (RBC) [Entitic vol]78.1 fLLow83.5-101Mer[facility] Allen HospitalComment on above:Performed By: #### CBC, PTT, PT #### [place] [address] USAMean Corpuscular HGB Conc33.2 g/mBFkstkg61.5-35.6FMartins Ferry HospitalComment on above:Performed By: #### CBC, PTT, PT #### [place] [address] USAMonocytes (Bld) [#/Vol]0.8 10*3/uLNormal0.0-0.8Mer[facility] Allen HospitalComment on above:Performed By: #### CBC, PTT, PT #### [place] [address] USAMonocytes/100 WBC (Bld)9.0 %Normal.[facility] HospitalComment on above:Performed By: #### CBC, PTT, PT #### [place] [address] USANeutrophils (Bld) [#/Vol]6.7 10*3/uLNormal1.8-7.7FMartins Ferry HospitalComment on above:Performed By: #### CBC, PTT, PT #### [place] [address] USANeutrophils/100 WBC (Bld)73.8 %Normal.[facility] Allen HospitalComment on above:Performed By: #### CBC, PTT, PT #### [facility] [address] [place] [address] USANucleated RBC/100 WBC (Bld) [Ratio]0.1 %Normal0-0.5 [facility] HospitalComment on above:Performed By: #### CBC, PTT, PT #### [facility] [address] [place] [address] USAPlatelet mean volume (Bld) [Entitic vol]7.5 fLNormal 6.6-10.1FMartins Ferry HospitalComment on above:Performed By: #### CBC, PTT, PT #### [facility] [address] [place] [address] USAPlatelets (Bld) [#/Vol]298 10*3/qPTslmoc351-050JpcklylloMercy Health Allen HospitalComment on above:Performed By: #### CBC, PTT, PT #### [facility] [address] [place] [address] USARBC (Bld) [#/Vol]4.90 10*6/uLNormal3.90-5.60Mer[facility] HospitalComment on above:Performed By: #### CBC, PTT, PT #### [facility] [address] [place] [address] USAWBC (Bld) [#/Vol]9.1 10*3/uLNormal4.5-11.0Mer[facility] Allen HospitalComment on above:Performed By: #### CBC, PTT, PT #### [facility] [address] [place] [address] USAECG 12 lead ECGon 57-90-9544KOM 12 lead ECGJOINT T[facility]NSH[facility] Main [place] [address] [place] [address] Electrocardiograph Report Signed Patient: Lino Peters Jr MR#: [id number] : 1950 Acct:[id number] Age/Sex: 70 / M ADM Date: 08/19/20 Loc: Room: [address] [place] [address] Type: ADM IN Attending Dr: Padmini Germain [...] Gunn DO 08/19/20 1353 Signed By: 08/20/20 1533NormalMercy Health Allen HospitalMagnesiumon 14-54-6092Uujmzffbg [Mass/Vol]2.1 mg/dLNormal1.6-2.6FMartins Ferry HospitalComment on above:Result Comment: PERFORMED BY: [place] [address] PATHOLOGIST GROUND CREW SUPERVISOR LE SAUNDERS M.D.Performed By: #### CBC, PTT, PT #### [facility] [address] [place] [address] USAPartial Thromboplastin Timeon 13-73-5830wTYB Coag (Bld) [Time]32.9 aRnrjcy51.1-36.5FMartins Ferry HospitalComment on above: Result Comment: PERFORMED BY: [address] [address] PATHOLOGIST GROUND CREW SUPERVISOR LE SAUNDERS M.D.Performed By: #### CBC, PTT, PT #### [facility] [address] [place] [address] USAProthrombin Time INRon 26-87-5386PHT Coag (PPP) [Relative time]1.3 {INR}NormalFirelands Regional Medical CenterComment on above:Result Comment: INR Therapeutic Range A) Pre- and [...] patients with mechanical heart valves: 3 - 4.5Performed By: #### CBC, PTT, PT #### [place] [address] USAPT Coag (PPP) [Time]14.3 sHigh9.0-12.9Mer[facility] Allen HospitalComment on above:Performed By: #### CBC, PTT, PT #### [place] [address] USASofia Ag Negativeon 13-41-1785Kwceu Ag NegativeNegative NormalNegativeMercy Health Allen HospitalComment on above:Result Comment: This is a duplicate test result based off of the Tyra SARS Antigen (TAJ) test performed within the Microbiology department. PERFORMED BY: [place] [address] PATHOLOGIST GROUND CREW SUPERVISOR LE SAUNDERS M.D.Performed By: #### CBC, PTT, PT #### [place] [id number] USATroponin I(TnI)on 22-26-3414Emohjoiw I.cardiac [Mass/Vol] 6.51 ng/mLOff scale high0-0.02Mer[facility] Allen HospitalComment on above: Result Comment: STEVE [place] Cut off value > or equal to 0.03 ng/mL in conjunction with clinical conditions of myocardial infarction. (www.escardio.org/guidelines) PERFORMED BY: [place] [address] PATHOLOGIST GROUND CREW SUPERVISOR LE SAUNDERS M.D.Performed By: #### CBC, PTT, PT #### [address] [address] USATroponin I.cardiac [Mass/Vol]5.98 ng/mLOff scale high 0-0.02Mer[facility] Allen HospitalComment on above:Result Comment: STEVE [place] Cut off value > or equal to 0.03 ng/mL in conjunction with clinical conditions of myocardial infarction. (www.escardio.org/guidelines) PERFORMED BY: [place] [address] PATHOLOGIST GROUND CREW SUPERVISOR LE SAUNDERS M.D.Performed By: #### CBC, PTT, PT #### [facility] [address] [place] [address] USATroponin I.cardiac [Mass/Vol]5.88 ng/mLOff scale high 0-0.02Mer[facility] HospitalComment on above:Result Comment: Critical value result called at 1435 on 08/19/20 STEVE [place] Cut off value > or equal to 0.03 ng/mL in conjunction with clinical conditions of myocardial infarction. (www.escardio.org/guidelines) PERFORMED BY: [place] [address] PATHOLOGIST GROUND CREW SUPERVISOR LE SAUNDERS M.D.Performed By: #### CBC, PTT, PT #### [facility] [address] [place], [place] [id number] USAXR chest 1V portableon 96-09-8008IO chest 1V portable [facility] Main [place] [id number] XRay Report Signed Patient: Lino Peters Jr MR#: [id number] : 1950 Acct:[id number] Age/Sex: 70 / M ADM Date: 08/19/20 Loc: ER Room: Type: [facility] ER Attending Dr: Ordering Provider: Yannick Kan [...] Harshil Martinez M.D.08/19/2020 2:21 PM Dictation Location: [place] [address] Transcribed By: [facility] 08/19/20 1421 Dictated By: Harshil Martinez II, MD 08/19/20 1419 Signed By: 08/19/20 142NoCommunity Regional Medical CenterBasic Metabolic Panelon 50-26-9581Dupcpkw [Mass/Vol]8.4 mg/dLNormal8.2-10.2FMartins Ferry HospitalComment on above:Performed By: #### CBC, PTT, PT #### [facility] [address] [place] [address] USAChloride [Moles/Vol]105 mmol/JDdhohq35-067BnhwtfaquMercy Health Allen HospitalComment on above:Performed By: #### CBC, PTT, PT #### [facility] [address] [place] [address] USACO2 [Moles/Vol]21.4 mmol/LLow22.0-30.0Mer[facility] Allen HospitalComment on above:Performed By: #### CBC, PTT, PT #### [facility] [address] [place] [address] USACreatinine [Mass/Vol]1.00 mg/dLNormal0.64-1.27Mer[facility] Allen HospitalComment on above:Performed By: #### CBC, PTT, PT #### [facility] [address] [place] [id number] USACreatinine Clr Calc Jrprhzfm40.29NoCommunity Regional Medical CenterComment on above:Result Comment: PERFORMED BY: [place] [address] PATHOLOGIST GROUND CREW SUPERVISOR LE SAUNDERS M.D.Performed By: #### CBC, PTT, PT #### [facility] [address] [place] [address] USAEstimated GFR ( Francy> 60NormSouthern Ohio Medical CenterComment on above:Result Comment: GFR estimated reference range: According to KDOQI guidelines, <60 ml/min/1.73m2 is sufficient to diagnose a patient with chronic kidney disease.Performed By: #### CBC, PTT, PT #### [facility] [address] [place] [id number] USAEstimated GFR (Non- Am> 60NormSouthern Ohio Medical CenterComment on above:Performed By: #### CBC, PTT, PT #### [facility] [address] [place] [address] USAGlucose [Mass/Vol]105 mg/iRUauf13-155XeunwtwpcMercy Health Allen HospitalComment on above:Result Comment: Random Glucose Reference Range is dependent on time and content of last meal. Glucose of more than 200 mg/dL in a nonstressed, ambulatory subject supports the diagnosis of Diabetes Mellitus. ADA recommended reference rangePerformed By: #### CBC, PTT, PT #### [facility] [address] [place] [address] USAPotassium [Moles/Vol]3.9 mmol/LNormal3.5-5.1FMartins Ferry HospitalComment on above:Performed By: #### CBC, PTT, PT #### [facility] [address] [place] [id number] USASodium [Moles/Vol]135 mmol/TWtz983-822OfperibuzMercy Health Allen HospitalComment on above:Performed By: #### CBC, PTT, PT #### [facility] [address] [place] [id number] USAUrea nitrogen [Mass/Vol]21 mg/dLNormal9-23Mer[facility] HospitalComment on above:Performed By: #### CBC, PTT, PT #### [facility] [address] [place] [address] USAComplete Blood Count Auto Diffon 05-55-9698Ibvvocsns (Bld) [#/Vol]0.1 10*3/uLNormal0.0-0.2FMartins Ferry HospitalComment on above:Result Comment: PERFORMED BY: [place] [address] PATHOLOGIST GROUND CREW SUPERVISOR LE SAUNDERS M.D.Performed By: #### CBC, PTT, PT #### [place] [address] USABasophils/100 WBC (Bld)1.1 %Normal.[facility] Allen HospitalComment on above:Performed By: #### CBC, PTT, PT #### [place] [address] USAEosinophils (Bld) [#/Vol]0.2 10*3/uLNormal0.0-0.45 [facility] HospitalComment on above:Performed By: #### CBC, PTT, PT #### [place] [address] USAEosinophils/100 WBC (Bld)1.8 %Normal.[facility] Allen HospitalComment on above:Performed By: #### CBC, PTT, PT #### [place] [address] USAErythrocyte distribution width (RBC) [Ratio]14.3 %Normal 12.0-14.8[facility] HospitalComrehabilitation institute of [place] on above:Performed By: #### CBC, PTT, PT #### [place] [address] USAHematocrit (Bld) [Volume fraction]34.2 %Low38.8-50.0 [facility] HospitalComrehabilitation institute of [place] on above:Performed By: #### CBC, PTT, PT #### [place] [address] USAHemoglobin (Bld) [Mass/Vol]11.5 g/dLLow13.0-17.0[facility] HospitalComrehabilitation institute of [place] on above:Performed By: #### CBC, PTT, PT #### [place] [address] USALymphocytes (Bld) [#/Vol]1.7 10*3/uLNormal1.00-4.8 [facility] Allen HospitalComment on above:Performed By: #### CBC, PTT, PT #### [facility] [address] [place] [address] USALymphocytes/100 WBC (Bld)17.0 %Normal.[facility] Allen HospitalComment on above:Performed By: #### CBC, PTT, PT #### [facility] [address] (RBC) [Entitic mass]26.2 pgLow27.5-35.2FMartins Ferry HospitalComment on above:Performed By: #### CBC, PTT, PT #### [facility] [address] [place] [address] USAV (RBC) [Entitic vol]77.9 fLLow83.5-101Mer[facility] Allen HospitalComment on above:Performed By: #### CBC, PTT, PT #### [place] [address] USAMean Corpuscular HGB Conc33.7 g/dIGbjpbz82.5-35.6FMartins Ferry HospitalComment on above:Performed By: #### CBC, PTT, PT #### [facility] [address] [place] [address] USAMonocytes (Bld) [#/Vol]0.8 10*3/uLNormal0.0-0.8[facility] HospitalComrehabilitation institute of [place] on above:Performed By: #### CBC, PTT, PT #### [facility] [address] [place] [address] USAMonocytes/100 WBC (Bld)8.4 %Normal.[facility] Allen HospitalComment on above:Performed By: #### CBC, PTT, PT #### [facility] [address] [place] [address] USANeutrophils (Bld) [#/Vol]7.3 10*3/uLNormal1.8-7.7FMartins Ferry HospitalComment on above:Performed By: #### CBC, PTT, PT #### [facility] [address] [place] [address] USANeutrophils/100 WBC (Bld)71.7 %Normal.[facility] Allen HospitalComment on above:Performed By: #### CBC, PTT, PT #### [facility] [address] [place] [address] USANucleated RBC/100 WBC (Bld) [Ratio]0.0 %Normal0-0.5 [facility] Allen HospitalComment on above:Performed By: #### CBC, PTT, PT #### [facility] [address] [place] [address] USAPlatelet mean volume (Bld) [Entitic vol]7.5 fLNormal 6.6-10.1FMartins Ferry HospitalComment on above:Performed By: #### CBC, PTT, PT #### [place] [address] USAPlatelets (Bld) [#/Vol]236 10*3/tADcxgzh266-543StdapqmwpMercy Health Allen HospitalComment on above:Performed By: #### CBC, PTT, PT #### [place] [address] USARBC (Bld) [#/Vol]4.39 10*6/uLNormal3.90-5.60[facility] Allen HospitalComment on above:Performed By: #### CBC, PTT, PT #### [place] [address] USAWBC (Bld) [#/Vol]10.1 10*3/uLNormal4.5-11.0Mer[facility] Allen HospitalComment on above:Performed By: #### CBC, PTT, PT #### [place] [address] USAComprehensive Metabolic Panelon 20-91-2172Eekaqxt [Mass/Vol]3.2 g/dLNormal3.2-5.5FMartins Ferry HospitalComment on above:Performed By: #### CBC, PTT, PT #### [place] [address] USAAlbumin/Globulin [Mass ratio]1.1 {ratio}NormalMercy Health Allen HospitalComment on above:Performed By: #### CBC, PTT, PT #### [facility] [address] [place] [address] USAALP [Catalytic activity/Vol]58 U/NWzsjrw76-47LuebnjoxmMercy Health Allen HospitalComment on above:Performed By: #### CBC, PTT, PT #### [facility] [address] [place] [address] USAALT [Catalytic activity/Vol]30 U/DUekzsz35-75EjgszhagvMercy Health Allen HospitalComment on above:Performed By: #### CBC, PTT, PT #### [facility] [address] [place] [address] USAAST [Catalytic activity/Vol]88 U/PAezt51-63NwixluwtgMercy Health Allen HospitalComment on above:Performed By: #### CBC, PTT, PT #### [facility] [address] [place] [address] USABilirubin [Mass/Vol]1.3 mg/dLHigh0.3-1.2FMartins Ferry HospitalComment on above:Result Comment: Samples from patients who have taken Naproxen have shown spurious elevation in Total Bilirubin levels. A metabolite of Naproxen, O-desmethylnaproxen, has been shown to interfere with the Jendrassik-Grof method for measuring Total Bilirubin.Performed By: #### CBC, PTT, PT #### [facility] [address] [place] [address] USACO2 [Moles/Vol]21.0 mmol/LLow22.0-30.0Mer[facility] Allen HospitalComment on above:Performed By: #### CBC, PTT, PT #### [facility] [address] [place] [address] USAGlobulin (S) [Mass/Vol]3.0 g/dLNormalMercy Health Allen HospitalComment on above:Performed By: #### CBC, PTT, PT #### [facility] [address] [place] [address] USAGlucose [Mass/Vol]106 mg/aSQjun50-770JhagjtztwMercy Health Allen HospitalComment on above:Result Comment: Random Glucose Reference Range is dependent on time and content of last meal. Glucose of more than 200 mg/dL in a nonstressed, ambulatory subject supports the diagnosis of Diabetes Mellitus. ADA recommended reference rangePerformed By: #### CBC, PTT, PT #### [facility] [address] [place] [address] USAPotassium [Moles/Vol]4.0 mmol/LNormal3.5-5.1FMartins Ferry HospitalComment on above:Performed By: #### CBC, PTT, PT #### [facility] [address] [place] [address] USAProtein [Mass/Vol]6.2 g/dLNormal6.1-7.9Mer[facility] Allen HospitalComment on above:Performed By: #### CBC, PTT, PT #### [facility] [address] [place] [id number] USAECG 12 lead ECGon 64-68-8105WKY 12 lead ECGJOINT TOWNSHIP [facility] Main [place] [address] [place] [address] Electrocardiograph Report Signed Patient: Lino Peters Jr MR#: [id number] : 1950 Acct:[id number] Age/Sex: 70 / M ADM Date: 08/15/20 Loc: Room: [address] [place] [address] Type: ADM IN Attending Dr: Padmini Germain MD Ordering Provider: Julito Howe DO Date of Service: 08/17/20 ECG/ECG 12 [...] By: ANGELA Dictated By: Mejia Gunn DO 08/17/20 0740 Signed By: 08/17/20 1221Our [facility] of Mercy HospitalECG 12 lead ECG [facility] [place] [address] Electrocardiograph Report Signed Patient: Lino Peters Jr MR#: [id number] : 1950 Acct:[id number] Age/Sex: 70 / M ADM Date: 08/15/20 Loc: Room: [address] [place] [address] Type: ADM IN Attending Dr: Padmini Germain [...] By: ANGELA Dictated By: Mejia Gunn DO 08/17/20 0535 Signed By: 08/17/20 1236[facility] Mercy HospitalTroponin I(TnI)on 03-43-2898Ptslnxgm I.cardiac [Mass/Vol]16.73 ng/mLOff scale high0-0.02[facility] HospitalComment on above:Result Comment: STEVE [place] Cut off value > or equal to 0.03 ng/mL in conjunction with clinical conditions of myocardial infarction. (www.escardio.org/guidelines) PERFORMED BY: [address] [place] [address] PATHOLOGIST GROUND [employer]W SUPERVISOR LE SAUNDERS M.D.Performed By: #### CBC, PTT, PT #### [facility] [address] [place] [address] USAA1C with Estimated Average Gluon 86-83-5653Kxixrcw [Mass/Vol]126 mg/dLNormalMercy Health Allen HospitalComment on above:Order Comment: at 0422 Draw PTT at 0600 along w other labs, but may need to come back at 0700 for cardiacs. RN will let us know. Sonal Comment: PERFORMED BY: [address] [place] [address] PATHOLOGIST GROUND [employer]W SUPERVISOR LE SAUNDERS M.D.Performed By: #### CBC, PTT, PT #### [place] [id number] BDKPuR9q (Bld) [Mass fraction]6.0 %High4.3-5.6FMartins Ferry HospitalComment on above:Order Comment: at 0422 Draw PTT at 0600 along w other labs, but may need to come back at 0700 for cardiacs. RN will let us know. Sonal Comment: Increased risk for diabetes: 5.7 - 6.4 diabetes: >6.4 glycemic control for adults with diabetes: <7.0Performed By: #### CBC, PTT, PT #### [facility] [address] [place], [place] [id number] USAComplete Blood Count Auto Diffon 09-73-0135Vdjxhtwqd (Bld) [#/Vol]0.1 10*3/uLNormal0.0-0.2FMartins Ferry HospitalComment on above:Order Comment: at 0422 Draw PTT at 0600 along w other labs, but may need to come back at 0700 for cardiacs. RN will let us know. Sonal Comment: PERFORMED BY: [address]Lou[address] [address] PATHOLOGIST GROUND [employer]W SUPERVISOR LE SAUNDERS M.D.Performed By: #### LIPID, MG #### [facility] [address] [place] [address] USABasophils/100 WBC (Bld)0.8 %Normal.[facility] HospitalComment on above:Order Comment: at 0422 Draw PTT at 0600 along w other labs, but may need to come back at 0700 for cardiacs. RN will let us know. jkwPerformed By: #### LIPID, MG #### [facility] [address] [place] [id number] USAEosinophils (Bld) [#/Vol]0.1 10*3/uLNormal0.0-0.45 [facility] HospitalComment on above:Order Comment: at 0422 Draw PTT at 0600 along w other labs, but may need to come back at 0700 for cardiacs. RN will let us know. jkwPerformed By: #### LIPID, MG #### [facility] [address] [place] [id number] USAEosinophils/100 WBC (Bld)1.2 %Normal.[facility] HospitalComment on above:Order Comment: at 0422 Draw PTT at 0600 along w other labs, but may need to come back at 0700 for cardiacs. RN will let us know. jkwPerformed By: #### LIPID, MG #### [address] [address] USAErythrocyte distribution width (RBC) [Ratio]14.2 %Normal 12.0-14.8[facility] HospitalComment on above:Order Comment: at 0422 Draw PTT at 0600 along w other labs, but may need to come back at 0700 for cardiacs. RN will let us know. jkwPerformed By: #### LIPID, MG #### [place] [id number] USAHematocrit (Bld) [Volume fraction]35.9 %Low38.8-50.0 [facility] HospitalComment on above:Order Comment: at 0422 Draw PTT at 0600 along w other labs, but may need to come back at 0700 for cardiacs. RN will let us know. jkwPerformed By: #### LIPID, MG #### [facility] [address] [place] [address] USAHemoglobin (Bld) [Mass/Vol]12.0 g/dLLow13.0-17.0[facility] HospitalComment on above:Order Comment: at 0422 Draw PTT at 0600 along w other labs, but may need to come back at 0700 for cardiacs. RN will let us know. jkwPerformed By: #### LIPID, MG #### [facility] [address] [place] [address] USALymphocytes (Bld) [#/Vol]2.0 10*3/uLNormal1.00-4.8 [facility] HospitalComrehabilitation institute of [place] on above:Order Comment: at 0422 Draw PTT at 0600 along w other labs, but may need to come back at 0700 for cardiacs. RN will let us know. jkwPerformed By: #### LIPID, MG #### [facility] [address] [place] [address] USALymphocytes/100 WBC (Bld)21.5 %Normal.[facility] HospitalComment on above:Order Comment: at 0422 Draw PTT at 0600 along w other labs, but may need to come back at 0700 for cardiacs. RN will let us know. jkwPerformed By: #### LIPID, MG #### [facility] [address] [place] [address] [facility] (RBC) [Entitic mass]26.4 pgLow27.5-35.2FMartins Ferry HospitalComment on above:Order Comment: at 0422 Draw PTT at 0600 along w other labs, but may need to come back at 0700 for cardiacs. RN will let us know. jkwPerformed By: #### LIPID, MG #### [facility] [address] [place] [address] [facility] (RBC) [Entitic vol]78.6 fLLow83.5-101[facility] HospitalComment on above:Order Comment: at 0422 Draw PTT at 0600 along w other labs, but may need to come back at 0700 for cardiacs. RN will let us know. jkwPerformed By: #### LIPID, MG #### [facility] [address] [place] [id number] USAMean Corpuscular HGB Conc33.6 g/fJKtrbkv39.5-35.6FMartins Ferry HospitalComment on above:Order Comment: at 0422 Draw PTT at 0600 along w other labs, but may need to come back at 0700 for cardiacs. RN will let us know. jkwPerformed By: #### LIPID, MG #### [facility] [address] [place] [address] USAMonocytes (Bld) [#/Vol]0.7 10*3/uLNormal0.0-0.8[facility] on above:Order Comment: at 0422 Draw PTT at 0600 along w other labs, but may need to come back at 0700 for cardiacs. RN will let us know. jkwPerformed By: #### LIPID, MG #### [facility] [address] [place] [id number] USAMonocytes/100 WBC (Bld)7.9 %Normal.[facility] HospitalComrehabilitation institute of [place] on above:Order Comment: at 0422 Draw PTT at 0600 along w other labs, but may need to come back at 0700 for cardiacs. RN will let us know. jkwPerformed By: #### LIPID, MG #### [facility] [address] [place] [id number] USANeutrophils (Bld) [#/Vol]6.3 10*3/uLNormal1.8-7.7FMartins Ferry HospitalComrehabilitation institute of [place] on above:Order Comment: at 0422 Draw PTT at 0600 along w other labs, but may need to come back at 0700 for cardiacs. RN will let us know. jkwPerformed By: #### LIPID, MG #### [facility] [address] [place] [address] USANeutrophils/100 WBC (Bld)68.6 %Normal.[facility] Regional Medical CenterComment on above:Order Comment: at 0422 Draw PTT at 0600 along w other labs, but may need to come back at 0700 for cardiacs. RN will let us know. jkwPerformed By: #### LIPID, MG #### [facility] [address] [place] [address] USANucleated RBC/100 WBC (Bld) [Ratio]0.3 %Normal0-0.5 [facility] HospitalComrehabilitation institute [facility] [place] on above:Order Comment: at 0422 Draw PTT at 0600 along w other labs, but may need to come back at 0700 for cardiacs. RN will let us know. jkwPerformed By: #### LIPID, MG #### [facility] [address] [place] [address] USAPlatelet mean volume (Bld) [Entitic vol]7.5 fLNormal 6.6-10.1FMartins Ferry HospitalComment on above:Order Comment: at 0422 Draw PTT at 0600 along w other labs, but may need to come back at 0700 for ca rdiacs. RN will let us know. jkwPerformed By: #### LIPID, MG #### [facility] [address] [place] [address] USAPlatelets (Bld) [#/Vol]229 10*3/gIAriuub851-507RestdtvmvMercy Health Allen HospitalComment on above:Order Comment: at 0422 Draw PTT at 0600 along w other labs, but may need to come back at 0700 for cardiacs. RN will let us know. jkwPerformed By: #### LIPID, MG #### [facility] [address] [place] [address] USARBC (Bld) [#/Vol]4.56 10*6/uLNormal3.90-5.60[facility] HospitalComrehabilitation institute of [place] on above:Order Comment: at 0422 Draw PTT at 0600 along w other labs, but may need to come back at 0700 for cardiacs. RN will let us know. jkwPerformed By: #### LIPID, MG #### [facility] [address] [place] [address] USAWBC (Bld) [#/Vol]9.1 10*3/uLNormal4.5-11.0[facility] HospitalComment on above:Order Comment: at 0422 Draw PTT at 0600 along w other labs, but may need to come back at 0700 for cardiacs. RN will let us know. jkwPerformed By: #### LIPID, MG #### [facility] [address] [place] [id number] USAComprehensive Metabolic Panelon 90-21-7029Xrcpojl [Mass/Vol]3.3 g/dLNormal3.2-5.5FMartins Ferry HospitalComment on above:Order Comment: at 0422 Draw PTT at 0600 along w other labs, but may need to come back at 0700 for cardiacs. RN will let us know. jkwPerformed By: #### LIPID, MG #### [facility] [address] [place] [id number] USAAlbumin/Globulin [Mass ratio]1.2 {ratio}NormalMercy Health Allen HospitalComment on above:Order Comment: at 0422 Draw PTT at 0600 along w other labs, but may need to come back at 0700 for cardiacs. RN will let us know. jkwPerformed By: #### LIPID, MG #### [facility] [address] [place] [address] USAALP [Catalytic activity/Vol]59 U/CPhmfzs11-62GcmvszyjxMercy Health Allen HospitalComment on above:Order Comment: at 0422 Draw PTT at 0600 along w other labs, but may need to come back at 0700 for cardiacs. RN will let us know. jkwPerformed By: #### LIPID, MG #### [facility] [address] [place] [address] USAALT [Catalytic activity/Vol]37 U/TRmqkxu92-80JzvplpdjxMercy Health Allen HospitalComment on above:Order Comment: at 0422 Draw PTT at 0600 along w other labs, but may need to come back at 0700 for cardiacs. RN will let us know. jkwPerformed By: #### LIPID, MG #### [facility] [address] [place] [address] USAAST [Catalytic activity/Vol]147 U/COhkk32-91EslhxhehiMercy Health Allen HospitalComment on above:Order Comment: at 0422 Draw PTT at 0600 along w other labs, but may need to come back at 0700 for cardiacs. RN will let us know. jkwPerformed By: #### LIPID, MG #### [facility] [address] [place] [address] USABilirubin [Mass/Vol]1.0 mg/dLNormal0.3-1.2FMartins Ferry HospitalComment on above:Order Comment: at 0422 Draw PTT at 0600 along w other labs, but may need to come back at 0700 for cardiacs. RN will let us know. jkwPerformed By: #### LIPID, MG #### [facility] [address] [place] [address] USACalcium [Mass/Vol]8.6 mg/dLNormal8.2-10.2FMartins Ferry HospitalComment on above:Order Comment: at 0422 Draw PTT at 0600 along w other labs, but may need to come back at 0700 for cardiacs. RN will let us know. jkwPerformed By: #### LIPID, MG #### [facility] [address] [place] [address] USAChloride [Moles/Vol]104 mmol/CAmlixj99-822OzhjetgqnMercy Health Allen HospitalComment on above:Order Comment: at 0422 Draw PTT at 0600 along w other labs, but may need to come back at 0700 for cardiacs. RN will let us know. jkwPerformed By: #### LIPID, MG #### [facility] [address] [place] [address] USACO2 [Moles/Vol]21.8 mmol/LLow22.0-30.0[facility] HospitalComment on above:Order Comment: at 0422 Draw PTT at 0600 along w other labs, but may need to come back at 0700 for cardiacs. RN will let us know. jkwPerformed By: #### LIPID, MG #### [facility] [address] [place] [address] USACreatinine [Mass/Vol]1.07 mg/dLNormal0.64-1.27[facility] HospitalComment on above:Order Comment: at 0422 Draw PTT at 0600 along w other labs, but may need to come back at 0700 for cardiacs. RN will let us know. jkwPerformed By: #### LIPID, MG #### [facility] [address] [place] [id number] USACreatinine Clr Calc Owytdmix10.23[facility] Mer[facility] HospitalComment on above:Order Comment: at 0422 Draw PTT at 0600 along w other labs, but may need to come back at 0700 for cardiacs. RN will let us know. jkwPerformed By: #### LIPID, MG #### [facility] [address] [place] [id number] USAEstimated GFR ( Francy> 60[facility] HospitalComment on above:Order Comment: at 0422 Draw PTT at 0600 along w other labs, but may need to come back at 0700 for cardiacs. RN will let us know. Sonal Comment: GFR estimated reference range: According to KDOQI guidelines, <60 ml/min/1.73m2 is sufficient to diagnose a patient with chronic kidney disease.Performed By: #### LIPID, MG #### [place] [id number] USAEstimated GFR (Non- Am> 60[facility] Mer[facility] HospitalComment on above:Order Comment: at 0422 Draw PTT at 0600 along w other labs, but may need to come back at 0700 for cardiacs. RN will let us know. jkwPerformed By: #### LIPID, MG #### [facility] [address] [place] [address] USAGlobulin (S) [Mass/Vol]2.8 g/dLOur Lady of Mercy HospitalComment on above:Order Comment: at 0422 Draw PTT at 0600 along w other labs, but may need to come back at 0700 for cardiacs. RN will let us know. jkwPerformed By: #### LIPID, MG #### [facility] [address] [place] [address] USAGlucose [Mass/Vol]116 mg/sSYrgw62-717HlhqicemhMercy Health Allen HospitalComment on above:Order Comment: at 0422 Draw PTT at 0600 along w other labs, but may need to come back at 0700 for cardiacs. RN will let us know. Sonal Comment: Random Glucose Reference Range is dependent on time and content of last meal. Glucose of more than 200 mg/dL in a nonstressed, ambulatory subject supports the diagnosis of Diabetes Mellitus. ADA recommended reference rangePerformed By: #### LIPID, MG #### [facility] [address] [place] [address] USAPotassium [Moles/Vol]4.6 mmol/LNormal3.5-5.1FMartins Ferry HospitalComment on above:Order Comment: at 0422 Draw PTT at 0600 along w other labs, but may need to come back at 0700 for cardiacs. RN will let us know. jkwPerformed By: #### LIPID, MG #### [facility] [address] [place] [address] USAProtein [Mass/Vol]6.1 g/dLNormal6.1-7.9[facility] HospitalComment on above:Order Comment: at 0422 Draw PTT at 0600 along w other labs, but may need to come back at 0700 for cardiacs. RN will let us know. jkwPerformed By: #### LIPID, MG #### [facility] [address] [place] [address] USASodium [Moles/Vol]136 mmol/FTddxja047-747ZqmhvycygMercy Health Allen HospitalComment on above:Order Comment: at 0422 Draw PTT at 0600 along w other labs, but may need to come back at 0700 for cardiacs. RN will let us know. jkwPerformed By: #### LIPID, MG #### [facility] [address] [place] [address] USAUrea nitrogen [Mass/Vol]25 mg/dLHigh9-23[facility] HospitalComment on above:Order Comment: at 0422 Draw PTT at 0600 along w other labs, but may need to come back at 0700 for cardiacs. RN will let us know. jkwPerformed By: #### LIPID, MG #### [place] [id number] USACreatine Kinaseon 07-97-0302IH [Catalytic activity/Vol] 1111 U/XMiqc84-923LzxzerddhMercy Health Allen HospitalComment on above:Performed By: #### CBC, PTT, PT #### [place] [address] USACK [Catalytic activity/Vol]1623 U/[address]Comment on above:Order Comment: at 0422 Draw PTT at 0600 along w other labs per RN. jkwPerformed By: #### LIPID, MG #### [place] [address] USACK [Catalytic activity/Vol]1819 U/YUoeg71-530Diyxtrfnt13 Dalton StreetComment on above:Performed By: #### TROP, CK, CKMB #### [place] [id number] USACreatinine Kinase MBon 91-72-0540AO.MB [Mass/Vol]90.3 ng/mLHigh0.6-6.3FMartins Ferry HospitalComment on above:Performed By: #### CBC, PTT, PT #### [facility] [address] [place], [place] [address] USACKMB Relative Index8.1High0.00-2.50[facility] HospitalComment on above:Performed By: #### CBC, PTT, PT #### [facility] [address] [place], [place] [address] USACK.MB [Mass/Vol]175.5 ng/mLHigh0.6-6.3FMartins Ferry HospitalComment on above:Order Comment: at 0422 Draw PTT at 0600 along w other labs per RN. jkwPerformed By: #### LIPID, MG #### [address] [place] [address] USACKMB Relative Index10.8High0.00-2.50[facility] HospitalComment on above:Order Comment: at 0422 Draw PTT at 0600 along w other labs per RN. sadnyPerformed By: #### LIPID, MG #### [facility] [address] [place] [address] USACK.MB [Mass/Vol]227.4 ng/mLHigh0.6-6.3FMartins Ferry HospitalComment on above:Performed By: #### LIPID, MG #### [facility] [address] [place] [address] USACKMB Relative Index12.5High0.00-2.50[facility] HospitalComment on above:Performed By: #### LIPID, MG #### [facility] [address] [place] [address] USAECG 12 lead ECGon 14-50-1507CTO 12 lead ECGJOINT TOWNS[facility]IP [facility] Main [place] [address] [place], [place] [address] Electrocardiograph Report Signed Patient: Lino Peters Jr MR#: [id number] : 1950 Acct:[id number] Age/Sex: 70 / M ADM Date: 08/15/20 Loc: Room: [address] [place] [address] Type: ADM IN Attending Dr: Padmini Germain MD Ordering Provider: Julito Howe DO Date of Service: 08/16/20 ECG/ECG 12 [...] By: MUS Dictated By: Mejia Gunn DO 08/16/20 1204 Signed By: 08/17/20 1304NoCommunity Regional Medical CenterMagnesiumon 28-10-9493Ffvquhncg [Mass/Vol]2.2 mg/dLNormal1.6-2.6FMartins Ferry HospitalComment on above:Order Comment: at 0422 Draw PTT at 0600 along w other labs, but may need to come back at 0700 for cardiacs. RN will let us know. jkw Result Comment: PERFORMED BY: [place] [address] PATHOLOGIST GROUND [employer]W SUPERVISOR LE SAUNDERS M.D.Performed By: #### LIPID, MG #### [address] [address] USAPartial Thromboplastin Timeon 52-74-4247rSAL Coag (Bld) [Time]69.0 sHigh25.1-36.5FMartins Ferry HospitalComment on above:Order Comment: at 0422 Draw PTT at 0600 along w other labs, but may need to come back at 0700 for cardiacs. RN will let us know. Janiceult Comment: PERFORMED BY: [place] [address] PATHOLOGIST GROUND [employer] SUPERVISOR LE SAUNDERS M.D.Performed By: #### LIPID, MG #### [address] [address] USAaPTT Coag (Bld) [Time]39.1 sHigh25.1-36.5FMartins Ferry HospitalComment on above:Result Comment: PERFORMED BY: [place] [id number] PATHOLOGIST GR[employer] SUPERVISOR LE SAUNDERS M.D.Performed By: #### PTT #### [address] [address] USAProthrombin Time INRon 19-00-6026IDC Coag (PPP) [Relative time]1.2 {INR}NormalMercy Health Allen HospitalComment on above:Order Comment: at 0422 Draw PTT at 0600 along w other labs, but may need to come back at 0700 for cardiacs. RN will let us know. Sonal Comment: INR Therapeutic Range A) Pre- and [...] patients with mechanical heart valves: 3 - 4.5Performed By: #### LIPID, MG #### [place] [address] USAPT Coag (PPP) [Time]13.0 sHigh9.0-12.9[facility] HospitalComment on above:Order Comment: at 0422 Draw PTT at 0600 along w other labs, but may need to come back at 0700 for cardiacs. RN will let us know. oseiwPerformed By: #### LIPID, MG #### [address] [address] USATroponin I(TnI)on 20-67-1065Griyqfur I.cardiac [Mass/Vol] 25.22 ng/mLOff scale high0-0.02[facility] HospitalComment on above:Result Comment: [place] Cut off value > or equal to 0.03 ng/mL in conjunction with clinical conditions of myocardial infarction. (www.escardio.org/guidelines) PERFORMED BY: [place] [id number] PATHOLOGIST GR[employer] SUPERVISOR LE SAUNDERS M.D.Performed By: #### CBC, PTT, PT #### [facility] [address] [place], [place] [address] USATroponin I.cardiac [Mass/Vol]38.15 ng/mLOff scale high 0-0.02[facility] HospitalComment on above:Order Comment: at 0422 Draw PTT at 0600 along w other labs per RN. Pruitt Comment: [place] Cut off value > or equal to 0.03 ng/mL in conjunction with clinical conditions of myocardial infarction. (www.escardio.org/guidelines) PERFORMED BY: [place] [address] PATHOLOGIST GR[employer] SUPERVISOR LE SAUNDERS M.D.Performed By: #### LIPID, MG #### [place] [address] USATroponin I.cardiac [Mass/Vol]42.35 ng/mLOff scale high 0-0.02[facility] HospitalComment on above:Result Comment: [place] Cut off value > or equal to 0.03 ng/mL in conjunction with clinical conditions of myocardial infarction. (www.escardio.org/guidelines) PERFORMED BY: [place] [address] PATHOLOGIST GROUND [employer] SUPERVISOR LE SAUNDERS M.D.Performed By: #### LIPID, MG #### [place] [address] USAComplete Blood Count Auto Diffon 41-47-9562Zefcgxiiz (Bld) [#/Vol]0.1 10*3/uLNormal0.0-0.2FMartins Ferry HospitalComment on above:Result Comment: PERFORMED BY: [place] [address] PATHOLOGIST GR[employer] SUPERVISOR LE SAUNDERS M.D.Performed By: #### CBC, PTT, PT #### [place] [address] USABasophils/100 WBC (Bld)0.7 %Normal.[facility] HospitalComment on above:Performed By: #### CBC, PTT, PT #### [place] [address] USAEosinophils (Bld) [#/Vol]0.1 10*3/uLNormal0.0-0.45 [facility] HospitalComment on above:Performed By: #### CBC, PTT, PT #### [facility] [address] [place] [address] USAEosinophils/100 WBC (Bld)0.5 %Normal.[facility] HospitalComment on above:Performed By: #### CBC, PTT, PT #### [facility] [address] [place] [address] USAErythrocyte distribution width (RBC) [Ratio]14.1 %Normal 12.0-14.8[facility] HospitalComment on above:Performed By: #### CBC, PTT, PT #### [facility] [address] [place] [address] USAHematocrit (Bld) [Volume fraction]39.3 %Ipewvu50.8-50.0 [facility] HospitalComrehabilitation institute of [place] on above:Performed By: #### CBC, PTT, PT #### [place] [address] USAHemoglobin (Bld) [Mass/Vol]13.0 g/kLOthqlj73.0-17.0 [facility] HospitalComment on above:Performed By: #### CBC, PTT, PT #### [place] [address] USALymphocytes (Bld) [#/Vol]1.8 10*3/uLNormal1.00-4.8 [facility] HospitalComrehabilitation institute of [place] on above:Performed By: #### CBC, PTT, PT #### [place] [address] USALymphocytes/100 WBC (Bld)16.1 %Normal.[facility] HospitalComment on above:Performed By: #### CBC, PTT, PT #### [place] [address] USAMCH (RBC) [Entitic mass]26.1 pgLow27.5-35.2FMartins Ferry HospitalComment on above:Performed By: #### CBC, PTT, PT #### [facility] [address] [place] [address] USAMCV (RBC) [Entitic vol]79.2 fLLow83.5-101Mer[facility] HospitalComment on above:Performed By: #### CBC, PTT, PT #### [place] [address] USAMean Corpuscular HGB Conc33.0 g/vLXcdzxl37.5-35.6FMartins Ferry HospitalComment on above:Performed By: #### CBC, PTT, PT #### [place] [address] USAMonocytes (Bld) [#/Vol]0.6 10*3/uLNormal0.0-0.8[facility] HospitalComment on above:Performed By: #### CBC, PTT, PT #### [place] [address] USAMonocytes/100 WBC (Bld)5.6 %Normal.[facility] HospitalComment on above:Performed By: #### CBC, PTT, PT #### [place] [address] USANeutrophils (Bld) [#/Vol]8.7 10*3/uLHigh1.8-7.7FMartins Ferry HospitalComment on above:Performed By: #### CBC, PTT, PT #### [place] [address] USANeutrophils/100 WBC (Bld)77.1 %Normal.[facility] HospitalComment on above:Performed By: #### CBC, PTT, PT #### [place] [address] USANucleated RBC/100 WBC (Bld) [Ratio]0.1 %Normal0-0.5 [facility] HospitalComment on above:Performed By: #### CBC, PTT, PT #### [place] [address] USAPlatelet mean volume (Bld) [Entitic vol]7.4 fLNormal 6.6-10.1FMartins Ferry HospitalComment on above:Performed By: #### CBC, PTT, PT #### [address] [place] [address] USAPlatelets (Bld) [#/Vol]271 10*3/gTHtdapk170-733JypxwxzvoMercy Health Allen HospitalComment on above:Performed By: #### CBC, PTT, PT #### [facility] [address] [place] [address] USARBC (Bld) [#/Vol]4.97 10*6/uLNormal3.90-5.60[facility] HospitalComment on above:Performed By: #### CBC, PTT, PT #### [facility] [address] [place] [address] USAWBC (Bld) [#/Vol]11.2 10*3/uLHigh4.5-11.0[facility] HospitalComment on above:Performed By: #### CBC, PTT, PT #### [place] [address] USACreatine Kinaseon 18-81-2003SH [Catalytic activity/Vol]811 U/PExob90-134MsbvbanepMercy Health Allen HospitalComment on above:Performed By: #### CKMB, CK, TROP #### [place] [address] USACreatinine Kinase MBon 94-38-4035TU.MB [Mass/Vol]172.3 ng/mLHigh0.6-6.3FMartins Ferry HospitalComment on above:Performed By: #### CKMB, CK, TROP #### [place] [address] USACKMB Relative Index21.2High0.00-2.50[facility] HospitalComment on above:Performed By: #### CKMB, CK, TROP #### [place] [address] USAECG 12 lead ECGon 19-43-2328RUS 12 lead ECGJOINT TOWNSHIP DISTRICT [facility] [place] [address] [place] [address] Electrocardiograph Report Signed Patient: Lino Peters MR#: [id number] : 1950 Acct:[id number] Age/Sex: 70 / M ADM Date: 08/15/20 Loc: Room: [address] [place] [address] Type: ADM IN Attending Dr: Padmini Germain [...] Gunn DO 08/15/20 1521 Signed By: 08/16/20 1242NormSouthern Ohio Medical CenterLipid Panelon 31-33-1391Gfamzwmnbgs [Mass/Vol]128 mg/zPJey201-058UwffiqtwaMercy Health Allen HospitalComment on above:Result Comment: Chol less than 200 mg/dl low risk Chol 201-239 mg/dl borderline risk Chol 240 mg/dl and greater high riskPerformed By: #### LIPID, MG #### [facility] [address] [place] [address] USACholesterol in HDL [Mass/Vol]27 mg/zGZfd32-10YevopzfnaMercy Health Allen HospitalComment on above:Result Comment: HDL CHOL ATP-III CLASSIFICATION Cardiovascular Risk HDL > or equal to 60 mg/dL LOW HDL < 40 mg/dL HIGHPerformed By: #### LIPID, MG #### [facility] [address] [place] [address] USACholesterol.total/Cholesterol in HDL [Mass ratio]4.7 {ratio}Normal<5.0Mercy Health Allen HospitalComment on above:Result Comment: PERFORMED BY: [place] [address] PATHOLOGIST GROUND CREW SUPERVISOR LE SAUNDERS M.D.Performed By: #### LIPID, MG #### [facility] [address] [place] [address] USALDL Cholesterol,Fnjqijwhoo18 mg/dLNormal0-100Mer[facility] Health Allen HospitalComment on above:Result Comment: LDL ATP III CLASSIFICATION LDL less than 100 mg/dL Optimal LDL 100-129 mg/dL Near or above optimal LDL 130-159 mg/dL Borderline high LDL 160-189 mg/dL High LDL greater than 189 mg/dL Very highPerformed By: #### LIPID, MG #### [facility] [address] [place] [address] USATriglyceride w/Yzqjfh48 mg/mUZxbrms82-257DhtmlvklbMercy Health Allen HospitalComment on above:Result Comment: TRIG ATP III CLASSIFICATION TRIG less than 150 mg/dL Normal TRIG 150-199 mg/dL Borderline high TRIG 200-500 mg/dL High TRIG greater than 500 mg/dL Very high Standard traceable to the Center for Disease Conrtrol and Prevention (CDC) test method.Performed By: #### LIPID, MG #### [facility] [address] [place] [address] USAVLDL CHOLESTEROL8 mg/dLNormalMercy Health Allen HospitalComment on above:Performed By: #### LIPID, MG #### [facility] [address] [place] [address] USAMagnesiumon 27-83-9631Walbzgxrv [Mass/Vol]1.9 mg/dLNormal 1.6-2.6FMartins Ferry HospitalComment on above:Performed By: #### LIPID, MG #### [facility] [address] [place] [address] USAPartial Thromboplastin Timeon [id number] Coag (Bld) [Time]50.5 sHigh25.1-36.5FMartins Ferry HospitalComment on above: Result Comment: PERFORMED BY: [place] [address] PATHOLOGIST GROUND CREW SUPERVISOR LE SAUNDERS M.D.Performed By: #### CBC, PTT, PT #### [facility] [address] [place] [id number] USAProthrombin Time INRon 86-99-9167QPO Coag (PPP) [Relative time]1.1 {INR}NormalMercy Health Allen HospitalComment on above:Result Comment: INR Therapeutic Range A) Pre- and [...] patients with mechanical heart valves: 3 - 4.5Performed By: #### CBC, PTT, PT #### [place] [address] USAPT Coag (PPP) [Time]12.4 sNormal9.0-12.9Mercy Health Allen HospitalComment on above:Performed By: #### CBC, PTT, PT #### [place] [id number] USATroponin I(TnI)on 87-36-0593Mdzlsomw I.cardiac [Mass/Vol] 8.97 ng/mLOff scale high0-0.02Mercy Health Allen HospitalComment on above: Result Comment: Results called at 1615 on 08/15/20 [place] Cut off value > or equal to 0.03 ng/mL in conjunction with clinical conditions of myocardial infarction. ([email or web address].org/guidelines) PERFORMED BY: [place] [address] PATHOLOGIST GROUND CREW SUPERVISOR LE SAUNDERS M.D.Performed By: #### CKMB, CK, TROP #### [place] [id number] USAAmbulatory Clinical Summaryon [id number] Clinical Summary{[id number]}CD:[id number] [facility] HospitalPatient Educationon 01-19-9546Ctodhvz EducationFamily Medicine Benign Prostatic Hypertrophy The prostate gland [...] This makes it harder to pass urine. Inthe early stages of enlargement, the bladder can [...] sound waves to electronically produce a picture ofthe prostate. It helps examine the prostate gland [...] procedure that uses electrodes to do the sameas the procedures listed above. Regardless of the method of treatment chosen, you and your caregiver will discuss the options. Withthis knowledge, you along with your caregiver can [...] develop lightheadedness, severe dizz (more content not included)...Normal De León [facility] Finan CenterUrology Office/Clinic Noteon 22-39-2140Qhdlzbv Office/Clinic NoteChief Complaint 4 month follow up w/ PVR HPI Staff Andreia is a 69 y.o. male here for 4 month follow up. Previous dx: Acute kidney injury, Bladder stone, BPH with urinary obstruction, Kidney disease, neurogenic bladder, nocturia, urinary retention. S/PUrodynamics 07/07/19. Tamsulosin 0.4 mg daily which is [...] level as noted below. Has had no co mplicating factors such as blood in the urine [...] denies hematuria, denies discharge, denies urinary frequency, deniesurinary hesitancy, denies nocturia, denies incontinence, denies genital [...] appointment with his primary Care physician, Dr. Villafuerte to manage him medically. He states he will make an appointment tomorrow. Follow-up With When Contact Information Osmin MICHEL MD In 6 months Additional Instructions: w/PVR Patient Education Benign Prostatic Hypertrophy Obesity, Mvoe-pg-Jwts ITova, personally scribed for Dr. Michel on 06/01/2020 15:56:55. . Documentation recorded by the scribe, Tova Banks, accurately reflects the services(s) I performed and decisions made by me. Authenticated by Dr. Michel on 06/01/2020 15:59:15. Problem List/Past Medical History [...] vaccine, live, trivalent - Not Given Patient RefusesMercy HospitalComment on above:Result Comment: Electronically Signed By: Osmin MICHEL MD\.br\Date and Time Signed: 06/01/20 16:00 EST\.br\Electronically Co-Signed By: Tova Navarro\.br\Date and Time Co- Signed: 06/01/20 15:57 EST Vital Signs Date TimeVital SignValuePerforming ShejvpnizNumjoqff87-95-2986 09:34-0400Body palhsletkif13.5 [degF]Isatu Deisi LOMELI Work Phone: [facility]04-23-2025 09:34-0400Diastolic blood mm[Hg]Isatu Deisi LOMELI Work Phone: [facility]04-23-2025 09:34-0400Heart rate 120 /minIsatu Deisi LOMELI Work Phone: [facility]04-23-2025 09:34-0400 Respiratory rate18 /minIsatu Deisi LOMELI Work Phone: [facility]04-23-2025 09:34-0400Systolic blood yezpaisd032 mm[Hg]Isatu Deisi LOMELI Work Phone: [facility]04-02-2025 08:22-0400Body vhesdmbmpli32.2 [degF]Isatu [place] [employer] WORKER-INSPECTOR AND HAND PACKAGER Work Phone: [phone] [employer] Nringf86-48-7427 08:22-0400Diastolic blood mm[Hg]Isatu Sargent S[employer]ADRON WORKER-INSPECTOR AND HAND PACKAGER Work Phone: [phone] [employer] Zkmwkh01-86-0662 08:22-0400Heart rate 111 /minIsatu Sargent SQUADRON WORKER-INSPECTOR AND HAND PACKAGER Work Phone: [phone]04-02-2025 08:22-0400Systolic blood gokrxctk351 mm[Hg]Isatu Sargent [employer] WORKER-INSPECTOR AND HAND PACKAGER Work Phone: 1(613)532-[address] [place], [place] 5726202-28-2025 13:50-0500Body ttucfmgtubb79.81 [degF]Isatu Sargent S[employer] WORKER-INSPECTOR AND HAND PACKAGER Work Phone: [phone]02-28-2025 13:50-0500Diastolic blood mm[Hg]Isatu Sargent S[employer]AD[employer] WORKER-INSPECTOR AND HAND PACKAGER Work Phone: 1(115)411-[address] [place], [place] 5726202-28-2025 13:50-0500Heart rate 100 /minIsatu Sargent S[employer] WORKER-INSPECTOR AND HAND PACKAGER Work Phone: [phone] [employer] Lkhtnx80-70-1472 13:50-0500Systolic blood bqutftnn618 mm[Hg]Isatu Sargent S[employer] WORKER-INSPECTOR AND HAND PACKAGER Work Phone: [phone]-[facility] [employer] Hqqesu29-74-3453 10:41-0500Body bcmbkchmedh85.01 [degF]Isatu Sargent S[employer]AD[employer] WORKER-INSPECTOR AND HAND PACKAGER Work Phone: [phone] [place] [address] [employer] Czuxzi14-06-7162 10:41-0500Diastolic blood xriglkza75 mm[Hg]Isatu Sargent S[employer]AD[employer] WORKER-INSPECTOR AND HAND PACKAGER Work Phone: [phone] [employer] Jluhag47-89-0496 10:41-0500Heart rate 111 /minIsatu Sargent S[employer]ADRON WORKER-INSPECTOR AND HAND PACKAGER Work Phone: [phone] [employer] Xphhgd23-56-2131 10:41-0500 Respiratory rate14 /minIsatu Sargent S[employer]AD[employer] WORKER-INSPECTOR AND HAND PACKAGER Work Phone: 1(961)071-[address] [place], [place] 5726202-14-2025 10:41-0500Systolic blood mktrhqer216 mm[Hg]Isatu Sargent S[employer]ADRON WORKER-INSPECTOR AND HAND PACKAGER Work Phone: [phone])250-[address] [place], [place] 5726201-31-2025 10:37-0500Body ximdmqrvtpl57.2 [degF]Isatu Sargent S[employer] WORKER-INSPECTOR AND HAND PACKAGER Work Phone: 1(976)859-[address] [place], [place] 5726201-31-2025 10:37-0500Diastolic blood htiinkes53 mm[Hg]Isatu Sargent [employer] WORKER-INSPECTOR AND HAND PACKAGER Work Phone: [phone])986-[address] [place], [place] 5726201-31-2025 10:37-0500Heart rate 128 /minIsatu Sargent S[employer] WORKER-INSPECTOR AND HAND PACKAGER Work Phone: 1(598)624-[address] [place], [place] 5726201-31-2025 10:37-0500Systolic blood noardheo486 mm[Hg]Isatu Sargent SQUADRON WORKER-INSPECTOR AND HAND PACKAGER Work Phone: [phone]01-17-2025 14:15-0500Body pdwpwxgaphy66.6 [degF]Isatu Sargent S[employer]AD[employer] WORKER-INSPECTOR AND HAND PACKAGER Work Phone: 1(950)751-[address] [place], [place] 5726201-17-2025 14:15-0500Diastolic blood narfeuem69 mm[Hg]Isatu Sargent S[employer] WORKER-INSPECTOR AND HAND PACKAGER Work Phone: [phone](571)597-[address] [place], [place] 5726201-17-2025 14:15-0500Heart rate 100 /minIsatu Sargent S[employer]ADRON WORKER-INSPECTOR AND HAND PACKAGER Work Phone: 1(572)217-[address] [place], [place] 5726201-17-2025 14:15-0500 Respiratory rate16 /minIsatu Sargent S[employer]AD[employer] WORKER-INSPECTOR AND HAND PACKAGER Work Phone: 1(587)472-[address] [place], [place] 5726201-17-2025 14:15-0500Systolic blood pvyfldoy795 mm[Hg]Isatu Sargent S[employer]AD[employer] WORKER-INSPECTOR AND HAND PACKAGER Work Phone: 1(105)591-[address] [place], [place] 5726201-03-2025 14:40-0500Body .4 [degF]Isatu Sargent S[employer]AD[employer] WORKER-INSPECTOR AND HAND PACKAGER Work Phone: 1(078)708-[address] [place], [place] 5726201-03-2025 14:40-0500Diastolic blood mm[Hg]Isatu Sargent S[employer]AD[employer] WORKER-INSPECTOR AND HAND PACKAGER Work Phone: [phone])766-[address] [place], [place] 5726201-03-2025 14:40-0500Heart rate 100 /minIsatu Sargent S[employer] WORKER-INSPECTOR AND HAND PACKAGER Work Phone: 1(670)385-[address] [place], [place] 5726201-03-2025 14:40-0500Systolic blood llraqsao851 mm[Hg]Isatu Sargent S[employer]AD[employer] WORKER-INSPECTOR AND HAND PACKAGER Work Phone: 1(163)256-[address] [place], [place] 5726212-06-2024 13:10-0500Body albznkhigza30.71 [degF]Isatu Sargent S[employer]ADRON WORKER-INSPECTOR AND HAND PACKAGER Work Phone: 1(258)544-[address] [place], [place] 5726212-06-2024 13:10-0500Diastolic blood ndtieute72 mm[Hg]Isatu Sargent S[employer]AD[employer] WORKER-INSPECTOR AND HAND PACKAGER Work Phone: [phone](336)002-[address] [place], [place] 5726212-06-2024 13:10-0500Heart rate 118 /minIsatu Sargent SQUADRON WORKER-INSPECTOR AND HAND PACKAGER Work Phone: [phone]12-06-2024 13:10-0500 Respiratory rate16 /minIsatu Sargent S[employer]ADRON WORKER-INSPECTOR AND HAND PACKAGER Work Phone: 1([phone])144-[address] [place], [place] 5726212-06-2024 13:10-0500Systolic blood mm[Hg]Isatu Sargent SQUADRON WORKER-INSPECTOR AND HAND PACKAGER Work Phone: [phone])[phone] [place], [place] 5726211-15-2024 13:07-0500Body mavfpilxqrf47.01 [degF]Isatu Sargent S[employer] WORKER-INSPECTOR AND HAND PACKAGER Work Phone: [phone](846)375-[address] [place], [place] 5726211-15-2024 13:07-0500Diastolic blood mm[Hg]Isatu Sargent S[employer]ADRON WORKER-INSPECTOR AND HAND PACKAGER Work Phone: 1(364)243-[address] [place], [place] 5726211-15-2024 13:07-0500Heart rate 103 /minIsatu Sargent S[employer]ADRON WORKER-INSPECTOR AND HAND PACKAGER Work Phone: [phone](877)761-[address] [place], [place] 5726211-15-2024 13:07-0500 Respiratory rate16 /Savana Sargent SQUADRON WORKER-INSPECTOR AND HAND PACKAGER Work Phone: [phone](833)839-[address] [place], [place] 5726211-15-2024 13:07-0500Systolic blood zmvgzeew415 mm[Hg]Isatu Sargent S[employer]ADRON WORKER-INSPECTOR AND HAND PACKAGER Work Phone: 1([phone])669-[address] [place], [place] 5726211-01-2024 13:10-0400Body npasgsiovkw31.1 [degF]Isatu Sargent S[employer]ADRON WORKER-INSPECTOR AND HAND PACKAGER Work Phone: 1(339)527-[address] [place], [place] 5726211-01-2024 13:10-0400Diastolic blood pjzibizh44 mm[Hg]Isatu Sargent SQUADRON WORKER-INSPECTOR AND HAND PACKAGER Work Phone: [phone])[phone]11-01-2024 13:10-0400Heart rate 116 /minIsatu Sargent SQUADRON WORKER-INSPECTOR AND HAND PACKAGER Work Phone: 1(445)262-[address] [place], [place] 5726211-01-2024 13:10-0400 Respiratory rate16 /minIsatu Sargent S[employer]ADRON WORKER-INSPECTOR AND HAND PACKAGER Work Phone: 1(564)543-[address] [place], [place] 5726211-01-2024 13:10-0400Systolic blood ctwksynp181 mm[Hg]Isatu Sargent S[employer]ADRON WORKER-INSPECTOR AND HAND PACKAGER Work Phone: [phone]10-18-2024 13:15-0400Body pbclzccjrga65.01 [degF]Jesus Dale SQUADRON WORKER-INSPECTOR AND HAND PACKAGER Work Phone: [phone] [employer] Hfwwzv13-23-7885 13:15-0400Diastolic blood vtkaagqp24 mm[Hg]Jesus Lutzsusan SQUADRON WORKER-INSPECTOR AND HAND PACKAGER Work Phone: [phone] [employer] Szlszg32-82-0995 13:15-0400Heart rate 92 /minJesus Lazaro S[employer]ADRON WORKER-INSPECTOR AND HAND PACKAGER Work Phone: [phone] [employer] Khqqao67-90-8678 13:15-0400 Respiratory rate16 /minAlejarrod Lazaro SQUADRON WORKER-INSPECTOR AND HAND PACKAGER Work Phone: [phone] [employer] Bmkqxw61-35-9297 13:15-0400Systolic blood yszszvyp304 mm[Hg]Jesus Lazaro SQUADRON WORKER-INSPECTOR AND HAND PACKAGER Work Phone: [phone] [employer] Tticnm61-37-0270 13:02-0400Body mswkayebvxt26.6 [degF]Isatu Sargent APRN-INSPECTOR AND HAND PACKAGER Work Phone: [facility] [employer] Ruinkk40-97-8071 13:02-0400Diastolic blood pxvvqejj89 mm[Hg]Isatu Sargent APRN-INSPECTOR AND HAND PACKAGER Work Phone: [facility]10-04-2024 13:02-0400Heart rate 108 /minIsatu Sargent APRN-INSPECTOR AND HAND PACKAGER Work Phone: [facility]10-04-2024 13:02-0400 Respiratory rate16 /minIsatu Sargent APRN-INSPECTOR AND HAND PACKAGER Work Phone: [facility]10-04-2024 13:02-0400Systolic blood pyzzxeri69 mm[Hg]Isatu Sargent S[employer]AD[employer] WORKER-INSPECTOR AND HAND PACKAGER Work Phone: [facility]09-26-2024 11:22-0400Body hizuij354.1 cmKerline BARTHOLOMEW Work Phone: [facility] [employer] Ceboyh01-24-5900 11:22-0400Body mass index (BMI) [Ratio]41.93 kg/y6KhtvbKerline BARTHOLOMEW Work Phone: [facility] Tjggpu01-23-8544 11:22-0400Body caepci070.31 kgKerline BARTHOLOMEW Work Phone: [facility] [employer] Aqyryb75-98-6173 11:35-0400Body dctcby149.9 Kassandra Moreau MD Work Phone: [facility] [employer] Ajchow95-02-6042 11:35-0400Body mass index (BMI) [Ratio]35.93 kg/l9ZvwifysRandy Moreau MD Work Phone: [facility] [employer] Mrlevf01-39-3289 11:35-0400Body enpqrb613.2 kgRandy Moreau MD Work Phone: [facility] [employer] Bqcmxz57-49-5695 11:35-0400Diastolic blood vdhrwixe452 mm[Hg]Randy Moreau MD Work Phone: [facility]08-28-2024 11:35-0400Heart rate 91 /Mitchel Moreau MD Work Phone: [facility]08-28-2024 11:35-0400 Respiratory rate16 /Mitchel Moreau MD Work Phone: [facility]08-28-2024 11:35-0400Systolic blood xixpbesk883 mm[Hg]Randy Moreau MD Work Phone: [facility]12-13-2023 10:11-0500Body erjyvf736.1 cmJohnathan Howe DO Work Phone: [facility]12-13-2023 10:11-0500 Body mass index (BMI) [Ratio]42.6 kg/j5Crrkqyvtorito Souzadon DO Work Phone: [facility]12-13-2023 10:11-0500 Body ylopib071.12 kgWitorito Howe DO Work Phone: [facility]12-13-2023 10:11-0500 Diastolic blood askdflri00 mm[Hg]Johnathan Howe DO Work Phone: [facility]12-13-2023 10:11-0500 Heart rate72 /minJohnathan Howe DO Work Phone: [facility]12-13-2023 10:11-0500 Systolic blood jgnefiaa481 mm[Hg]Johnathan Howe DO Work Phone: [facility]06-07-2023 14:08-0400 Body yueqjh115.1 cmDosandornelly Villafuerte Work Phone: [phone]-Iybms [facility] [address] DO Work Phone: 1(968) 448-100206-07-2023 14:08-0400Body mass index (BMI) [Ratio] 40.27 kg/m9CtmpiwsHola Villafuerte Work Phone: [phone]-Tevjs [facility] [address] DO Work Phone: 1(021)[phone] 14:08-0400Body surface area Derived from formula2.15 c8Ninkjrw M Hoy Work Phone: [phone]-Wnwko [facility] [address] DO Work Phone: 1([phone])513-748-807751-45 14:08-0400Body jnorex004.77 kgDouglas M Hoy Work Phone: [phone]-Uzmrj [facility] [address] DO Work Phone: [phone])[phone] 14:08-0400Diastolic blood mm[Hg] Hola M Hoy Work Phone: [phone]-Mbyjv [facility] [address] DO Work Phone: 1([phone])[phone] 14:08-0400Heart rate72 /minDouglas M Hoy Work Phone: [phone]-Baltw [facility] [address] DO Work Phone: 1(548)044-276-288301-77 14:08-0400Systolic blood mm[Hg] Hola M Hoy Work Phone: [phone]-Mbhnk [facility] [address] DO Work Phone: 1(001)[phone] 12:03-0500Body oqggqx284.1 cmDouglas M Hoy Work Phone: [phone]-Doflb [facility] [address] DO Work Phone: 1(289)[phone] 12:03-0500Body mass index (BMI) [Ratio] 41.77 kg/s3Wdzsxle M Hoy Work Phone: [phone]-Dcspu [facility] [address] DO Work Phone: 1(204)[phone] 12:03-0500Body surface area Derived from formula2.18 k0Pnnoyod M Hoy Work Phone: 1([phone]-Yglyb [facility] [address] DO Work Phone: 1(593)[phone] 12:03-0500Body mrxemk034.85 kgDouglas M Hoy Work Phone: [phone]-Zwsel [facility] [address] DO Work Phone: 1(276)[phone] 12:03-0500Diastolic blood dycfikmy54 mm[Hg] Hola M Hoy Work Phone: 1(372)[phone]-Jrlam [facility] [address] DO Work Phone: 1(684)547-473-864639-52 12:03-0500Heart rate68 /minDouglas M Hoy Work Phone: [phone]-Emuua [facility] [address] DO Work Phone: 1(288)684-707-160277-74 12:03-0500Systolic blood mm[Hg] Hola M Hoy Work Phone: [phone]-Mvaao [facility] [address] DO Work Phone: 1(123)[phone] 12:55-0500Body .1 cmDouglas Leticia Hoy Work Phone: 1([phone])[phone]-Ewzlw [facility] [address] [place] Work Phone: 1(290)[phone] 12:55-0500Body mass index (BMI) [Ratio] 37.94 kg/s3Nzrpmqn M Hoy Work Phone: 1(765)[phone]-Irjbn [facility] [address] [place] Work Phone: 1(656)[phone] 12:55-0500Body surface area Derived from formula2.09 d8Iebvfni M Hoy Work Phone: 1([phone]-Uqmuw [facility] [address] [place] Work Phone: 1(586)[phone] 12:55-0500Body utofxk726.42 kgDouglas M Hoy Work Phone: 1([phone]-Gjokj [facility] [address] [place] Work Phone: 1(215)[phone] 12:55-0500Diastolic blood qomstigj16 mm[Hg] Hola M Hoy Work Phone: [phone]-Pklwf [facility] [address] [place] Work Phone: 1(226)[phone] 12:55-0500Heart rate92 /minDouglas M Hoy Work Phone: 1([phone]-Egphw [facility] [address] [place] Work Phone: 1(082)668-20595-163312-83184829-39-7275 12:55-0500Systolic blood frzfopzh385 mm[Hg] Hola M Hoy Work Phone: [phone]-Yevtd [facility] [address] [place] Work Phone: 1(137)[phone] 14:22-0400Body endxsg783.1 cmDouglas M Hoy Work Phone: 1([phone]-Hpowm [facility] [address] DO Work Phone: 1(038)[phone] 14:22-0400Body mass index (BMI) [Ratio] 36.78 kg/z4Aiyjjfa Leticia Hoy Work Phone: [phone]-Ljdfk [facility] [address] DO Work Phone: 1([phone] 14:22-0400Body surface area Derived from formula2.06 x8Nfeadsv Leticia Hoy Work Phone: 1(661)[phone]-LrudoPhillips [facility]-[place] [address] DO Work Phone: 1(565)[phone] 14:22-0400Body ieiajh213.25 kgDouglas M Hoy Work Phone: [phone]-Ngcau [facility] [address] DO Work Phone: 1(509)[phone] 14:22-0400Diastolic blood orscdvqx65 mm[Hg] Hola M Hoy Work Phone: [phone]-Uuqtu [facility] [address] DO Work Phone: 1(777)[phone] 14:22-0400Heart cprl692 /minDouglas M Hoy Work Phone: [phone]-Tvzsw [facility] [address] DO Work Phone: 1([phone])[phone] 14:22-0400Systolic blood iqifhbfc730 mm[Hg] Hola Villafuerte Work Phone: [phone]-Ymbsb [facility] [address] DO Work Phone: Encounters Encounter DateEncounter TypeCare ProviderFacilityStart: 10-15-2024 End: 08-26-9925jmwisdthdiAEJSFPA M PatMountains Community Hospitaltart: 10-15-2024 End: 82-37-9946Gigwrj outpatient visit 10 minutesIsatu Sargent S[employer]ADRON WORKER-[employer] Work Phone: [facility] Care ClinicComment on above:Non-healing surgical wound, subsequent encounter (Primary Dx)Start: 09-24-2024 End: 30-42-9212Efilch outpatient visit 10 minutesIsatu Sargent SQUADRON WORKER-[employer] Work Phone: [facility] ClinicComment on above:Irritant contact dermatitis due to other chemical products (Primary Dx); Non-healing surgical wound, subsequent encounterStart: 09-24-2024 End: 34-18-9846hhjiirtlmrXBMLRQK M [facility]: 08-22-2024 End: 38-79-0298kysfaxdecoRQOXJBH M [facility] Camp[facility]art: 08-22-2024 End: 45-02-6566Afyfstn encounter procedureIsatu Sargent SQUADRON WORKER-[employer] Work Phone: [facility] W[facility] Care ClinicComment on above:Non-healing surgical wound, initial encounter (Primary Dx); Irritant contact dermatitis due to other chemical productsStart: 08-08-2024 End: 09-14-8069Ywyovo outpatient visit 10 minutesIsatu Sargent SQUADRON WORKER-[employer] Work Phone: [facility] W[facility] Care ClinicComment on above:Irritant contact dermatitis due to other chemical products (Primary Dx)Start: 08-08-2024 End: 93-53-6699qtsghkicwaPYSVVVR M [facility] Campustart: 07-25-2024 End: 35-69-0575Plnlxx outpatient visit 10 minutesIsatu Sargent [employer] WORKER-INSPECTOR AND HAND PACKAGER Work Phone: [facility] Wound Care ClinicComment on above:Irritant contact dermatitis due to other chemical products (Primary Dx); Non-healing surgical wound, subsequent encounter; H/O umbilical hernia repairStart: 07-25-2024 End: 68-56-6540voewrsiupjVPDNABWUniversity Hospitals Portage Medical Centertart: 07-11-2024 End: 68-64-2448kivnfupyktVBDUKRGTuscarawas Hospitaltart: 07-11-2024 End: 90-33-7565Qybize outpatient visit 15 minutesIsatu Sargent [employer] WORKER-INSPECTOR AND HAND PACKAGER Work Phone: [facility] Wound Care ClinicComment on above:Irritant contact dermatitis due to other chemical products (Primary Dx); Non-healing surgical wound, subsequent encounter; H/O umbilical hernia repairStart: 06-27-2024 End: 42-71-3748Sfyzmf outpatient visit 10 minutesIsatu Sargent [employer] WORKER-INSPECTOR AND [employer] PACKAGER Work Phone: [facility] ClinicComment on above:Non-healing surgical wound, subsequent encounter (Primary Dx); H/O umbilical hernia repair; Irritant contact dermatitis due to other chemical productsStart: 06-27-2024 End: 99-20-7968btgoodnxxrIVANWIJUniversity Hospitals Portage Medical Centertart: 06-11-2024 End: 15-72-9691mhncfzpnlpMOOZ Jo [facility] H[facility]PITALANACleveland Clinic Children[facility] Hospital for Rehabilitationtart: 05-30-2024 End: 19-66-5996oeibancysaVIER P [facility] Health Systemtart: 05-30-2024 End: 71-23-6533Kridfy outpatient visit 10 minutesIsatu Sargent [employer] WORKER-INSPECTOR AND [employer] PACKAGER Work Phone: [facility] ClinicComment on above:Non-healing surgical wound, subsequent encounter (Primary Dx); H/O umbilical hernia repairStart: 05-09-2024 End: 98-24-3711spomtvcbtgADSW P CHENEYCleveland Clinic Children's [facility] 05-[facility]-2024 End: 87-58-6284Siznsuq encounter Aram Sargent APRN-INSPECTOR AND HAND PACKAGER Work Phone: [facility] Care ClinicComment on above:Non-healing surgical wound, subsequent encounter (Primary Dx); H/O umbilical hernia repairStart: 04-25-2024 End: 02-18-7646vaqknvcoafPBQY P CHENEYCleveland Clinic Children's Hospital for Rehabilitationtart: 04-25-2024 End: 84-83-9767Atsgku outpatient visit 10 minutesIsatu Sargent APRN-INSPECTOR AND HAND PACKAGER Work Phone: [facility] Care [facility] HealthComment on above:Non-healing surgical wound, subsequent encounter (Primary Dx); H/O umbilical hernia repairStart: 04-16-2024 End: 74-32-0869Mcbginmqp encounterAmy [facility]tart: 04-11-2024 End: 77-95-4572ukmmqpjcniOIXLLPJUniversity Hospitals Portage Medical Centertart: 04-11-2024 End: 23-00-9297Flqijy outpatient visit 10 minutesIsatu Sargent APRN-INSPECTOR AND HAND PACKAGER Work Phone: [facility] Wound Care ClinicComment on above:Non-healing surgical wound, subsequent encounter (Primary Dx); H/O umbilical hernia repairStart: 03-28-2024 End: 79-54-4809Xwixbq outpatient new 20 miriamIsatu Sargent SQUADRON WORKER-INSPECTOR AND HAND PACKAGER Work Phone: [facility] Wound Care ClinicComment on above:Non-healing surgical wound, initial encounter (Primary Dx); H/O umbilical hernia repair; Abdominal wall abscess at site of surgical woundStart: 03-28-2024 End: 93-94-0917pglvulsptjXHEE P [facility] HOSPITALANACleveland Clinic [facility] for Rehabilitationtart: 03-21-2024 End: 13-42-5948Intgzdimm encounterRoberta NopperProMedica Call CenterComment on above:wound vac home care ordersWound DehiscenceStart: 03-20-2024 End: 00-14-0732Eznrmr Lalita PowellLake Charles Memorial Hospital for Womenmarcia [facility] Comment on above:Abdominal wall abscess at site of surgical wound (Primary Dx) Start: 03-20-2024 End: 72-91-0593Zvhpnm outpatient visit 15 minutesTatita Rendon MD Work Phone: [facility] General SurgeryComment on above: Strangulated hernia of abdominal wall (Primary Dx)Start: 03-13-2024 End: 51-54-7724Zauggfalm encounterAysha Fleming [facility] HOSPITALProMedica Physicians CardiologyStart: 03-06-2024 End: 07-97-7930Dnbfd Camille Rivera MD Work Phone: [facility] CardiologyStart: 03-02-2024 End: 80-76-4122Wtvvnpjut department patient visitDOVICKI [facility] HospitalStart: 02-28-2024 End: 68-39-3087Pzfhaertpb and management of inpatientHOLA Kelly [facility] HospitalStart: 02-26-2024 End: 86-68-6787Xqrqeylec encounterCherie McMorganProMedica Call CenterComment on above:low heart rate on telemetryStart: 02-21-2024 End: 10-61-6519Gfgtwuvio encounterDolores NewmanProMedica Call CenterComment on above:Order ClarificationAnti CoagulationStart: 02-21-2024 End: 37-19-9640pfggmspxuqWZQLM N ZIAZADEHProMedica Silt HospitalStart: 02-20-2024 End: 28-56-5713ycqmdhyfhtZCOOOML M STANEKProMedica Silt HospitalStart: 02-20-2024 End: 44-11-0964Amczhwzbo department patient visitJALEELA PETTAWAYProMedica Silt HospitalStart: 02-20-2024 End: 04-98-6330Otgpafrklu and management of inpatientDOUGLAS Leticia [facility] HospitalStart: 02-20-2024 End: 67-40-9083Rpdzzb outpatient new 60 Natanael Moreau MD Work Phone: [facility] Surgery-TraumaComment on above:Strangulated hernia of abdominal wall (Primary Dx); Skin infection; Morbid obesity due to excess calories (CMS-HCC)Start: 02-20-2024 End: 82-05-8470vtrkmdaaznMMXPZEJ M STANEKNationwide Children's Hospital HospitalStart: 06-06-2023 End: 29-81-4817qzdbxkzrqvGLPDCMO Gina [facility] AmbulatoryStart: 06-06-2023 End: 11-96-8324Gnefnp outpatient visit 25 miriamMttorito Howe DO Work Phone: [facility] CenterComment on above:Status post insertion of drug eluting coronary artery stent; Persistent atrial fibrillation (CMS/HCC); Mixed hyperlipidemia; Ischemic cardiomyopathy; Primary hypertension; H/O non-ST elevation myocardial infarction (NSTEMI); Coronary artery disease involving red devil coronary artery of red devil heart without angina pectoris; Class 3 severe obesity due to excess calories with body mass index (BMI) of 40.0 to 44.9 in adult, unspecified whether serious comorbidity present (CMS/HCC) Start: 61-39-9378Hrodlw outpatient visit 25 miriamHola Villafuerte Work Phone: [phone]-KbpwyTwo [facility] 250 DO Work Phone: Start: 58-79-1145jzdnrmiaggSpDr. Hola Villafuerte Facility:[id number]: 09-21-2022 End: 59-08-9442Kouvasvdwn and management of inpatientDR HOLA VILLAFUERTE .Facility:H1 Start: 06-19-2022 End: 30-48-0180ugfrjnmchjCS JACK HAY .Facility:G4Pjegj: 05-17-2022 End: 14-58-2900qzygljmnsiAM DOUGLAS HOY .Facility:B0Djchg: 16-85-7742geljxlmexocherelle Howecility:62397Onxgt: 98-61-6295Qmasaq outpatient visit 25 minutesHola Villafuerte Work Phone: [phone]-OsozvTwo Twelve Medical Center 250 DO Work Phone: Start: 36-79-4905Zd RenewalDovicki Villafuerte Work Phone: [phone]-Iepdo [facility] 250 DO Work Phone: Start: 12-22-2021 End: 75-08-8841fayezbsvhrJL RANYD ZIEGLERFacility:Y9Eauny: 12-09-2021 End: 09-30-5306dncsynfsnyKJ TIFF LOVE .Facility:N4Pxhyc: 43-30-3644Hhmpok outpatient visit 15 minutesDovicki Villafuerte Work Phone: [phone]-Hievf [facility] [address] [place] Work Phone: Start: 28-12-7701Vjtyvyr encounter procedureDovicki Villafuerte Work Phone: [phone]-Batjr [facility] 600 DO Work Phone: Procedures DateProcedureProcedure DetailPerforming ClinicianStart: 53-33-4715TGZCNGL Rain Sargent SQUADRON WORKER-INSPECTOR AND HAND PACKAGER Work Phone: Start: 77-16-4003PGAUYST COMMUNICATIONAlexi Leticia Lutz SQUADRON WORKER-INSPECTOR AND HAND PACKAGER Work Phone: Start: 93-31-0018VJLYZLG COMMUNICATIONAlexi [facility] SQUADRON WORKER-INSPECTOR AND HAND PACKAGER Work Phone: Start: 13-93-6272VMSWHRO COMMUNICATIONAlexi [facility] SQUADRON WORKER-INSPECTOR AND HAND PACKAGER Work Phone: Start: 41-37-0069Odwpn depression screening assessment Eurydice MossStart: 68-16-4258SJK 12-LEADWILLIAM SHYAMStart: 70-85-2632Tah routine ecg w/least 12 lds w/i&rWilliam S Shyam DO Work Phone: Start: 87-45-8365Ehiqdva of placement of stent for coronary artery diseaseStatus post insertion of drug eluting coronary artery stentWitorito Howe DO Work Phone: Cardiac catheterizationDovicki Villafuerte Work Phone: Comment on above:x3;History of placement of stent for coronary artery diseaseStatus post insertion of drug eluting coronary artery stentHola Villafuerte Work Phone: History of placement of stent for coronary artery diseaseStatus post insertion of drug eluting coronary artery stentWilliam S Shyam DO Work Phone: NEGATED: Highlighted row has not occurred!Colonoscopy Hola Villafuerte Work Phone: Plan of Treatment DateCare ActivityDetailAuthorStart: 43-30-2073Ecrmzux ScreeningTobacco Screening [facility] Tru[facility] Accomplishedtart: 65-89-1873Nzbdbfc ScreeningTobacco Screening [facility] Tru[facility] Accomplishedtart: 90-22-4536Tbynvyn ScreeningTobacco Screening [facility] Tru[facility] Accomplishedtart: 50-82-9341Mwjtnlj ScreeningTobacco Screening [facility] Tru[facility] Accomplishedtart: 84-28-6807Zbxeixg ScreeningTobacco Screening [facility] Tru[facility] Accomplishedtart: 33-11-1543Liovvjm ScreeningTobacco Screening [facility] Tru[facility] Accomplishedtart: 86-76-5029Gxccfiq ScreeningTobacco Screening [facility] Tru[facility] Accomplishedtart: 89-18-2019Tbuujwd ScreeningTobacco Screening [facility] Accomplishedtart: 78-51-2307Cxsyngo ScreeningTobacco Screening [facility] Tru[facility] Accomplishedtart: 36-38-0137Enyuo BMI ScreeningAdult BMI Screening [facility] Tru[facility] Accomplishedtart: 84-16-5981Kdecrpx ScreeningTobacco Screening [facility] Tru[facility] Accomplishedtart: 03-19-5686Pwhwg BMI ScreeningAdult BMI Screening [facility] Tru[facility] Accomplishedtart: 33-69-7650Qatxwrh ScreeningTobacco Screening [facility] Truly Accomplishedtart: 26-54-1819Eolxn BMI ScreeningAdult BMI Screening [facility]ertart: 30-74-5980Albssrqld vaccinationInfluenza Vaccine [facility] Centertart: 25-65-8157Tvxnshz ScreeningTobacco Screening [facility] Centertart: 58-19-4358Njlpeph ScreeningTobacco Screening [facility]ertart: 28-69-7042Lpvxv BMI ScreeningAdult BMI Screening [facility]ertart: 30-06-8197Iwvxvqxrnm ScreeningDepression Screening [facility]ertart: 65-62-8131Dtdbuas ScreeningTobacco Screening [facility] Centertart: 10-15-2024 End: 79-94-3197Hwjhkam encounter cdbtexqxc39/23/2025 9:20 AM EDT Office Visit [facility] [address] [place] [address] Isatu Sargent, SQUADRON WORKER-INSPECTOR AND HAND PACKAGER [address] [place], [place] [facility]: 09-17-2024 End: 20-45-3118Gpdamfs encounter /26/2025 2:00 PM EDT Office Visit [facility] [address] [place] [address] Isatu Sargent, SQUADRON WORKER-INSPECTOR AND HAND PACKAGER [address] [place], [place] [facility] Clinicstart: 08-22-2024 End: 92-65-5538Ppnflhs encounter qdrvcoenx69/28/2025 1:40 PM EST Office [facility] [address] [place] [address] Isatu Sargent, SQUADRON WORKER-INSPECTOR AND HAND PACKAGER 2 [facility], [id number] [facility] Clinicstart: 08-08-2024 End: 96-26-2764Khivarm encounter aierzrpsg64/14/2025 10:40 AM EST Office Visit [facility] [address] [place] [address] Isatu Sargent, SQUADRON WORKER-INSPECTOR AND HAND PACKAGER [address] [place] [address] [facility] Clinicstart: 07-25-2024 End: 37-02-6168Lbeimye encounter mfwpjvsto16/31/2025 11:00 AM EST Office Visit [facility] [address] [place] [address] Isatu Sargent, SQUADRON WORKER-INSPECTOR AND HAND PACKAGER [address] [place] [address] [facility] Clinicstart: 07-11-2024 End: 94-83-1080Gohkcyv encounter yphsfteuv62/17/2025 2:00 PM EST Office Visit [facility] [address] [place] [address] Isatu Sargent, SQUADRON WORKER-INSPECTOR AND HAND PACKAGER [address] [place], [place] [id number] [facility]start: 06-11-2024 End: 63-34-9856Eetdcaf encounter nlhxjnsza38/18/2024 1:40 PM EST Office Visit [facility] [address] [place] [address] Isatu Sargent, SQUADRON WORKER-INSPECTOR AND HAND PACKAGER [address] [place], [place] [address] [facility] Clinicstart: 06-03-2024 End: 90-57-6008Crveafn encounter nxgbasedx29/10/2024 1:30 PM EST Office Visit [facility] [address] [place] [address] Johnathan Howe DO [address] [place] [address] [facility]: 05-30-2024 End: 78-58-0757Uikqpky encounter rahceurfx61/06/2024 1:00 PM EST Office Visit [facility] [address] [place] [address] Isatu Sargent, SQUADRON WORKER-INSPECTOR AND HAND PACKAGER [address] [place], [place] [facility] Clinicstart: 05-09-2024 End: 91-22-3786Omzsymw encounter bjgxnaqvr76/15/2024 1:00 PM EST Office Visit [facility] [address] [place] [address] Isatu Sargent, SQUADRON WORKER-INSPECTOR AND HAND PACKAGER [address] [place], [place] [facility] Clinicstart: 04-25-2024 End: 43-06-5227Ozgtcgl encounter vabszjjdu66/01/2024 1:00 PM EDT Office Visit [facility] [address] [place] [address] Isatu Sargent, SQUADRON WORKER-INSPECTOR AND HAND PACKAGER [address] [place], [place] [facility] Clinicstart: 04-11-2024 End: 29-78-6059Zexgplj encounter qwlnrlnuk89/18/2024 1:00 PM EDT Office Visit [facility] [address] [place] [address] Isatu Sargent, SQUADRON WORKER-INSPECTOR AND HAND PACKAGER [address] [place], [place] Jesus Lazaro, SQUADRON WORKER-INSPECTOR AND HAND PACKAGER [address] [address] [place] [address] [facility] Wound [facility]tart: 03-28-2024 End: 25-05-7445Tfgpbug encounter gkltlloff47/04/2024 1:00 PM EDT Office Visit [facility] Wound [facility] [address] [place] [address] Isatu Sargent, SQUADRON WORKER-INSPECTOR AND HAND PACKAGER [address] [place], [place] [facility] Clinicstart: 03-17-2024 End: 89-74-8491Diqabhy encounter edzffbrcm85/23/2024 12:45 PM EDT Office Visit [facility] [address] [place] [phone] Brandon Rendon MD [address], [address] [place] [address] [facility] Start: 03-14-2024 End: 52-11-6630Xeapags encounter mvjaqegav13/20/2024 1:00 PM EDT Office Visit [facility] [address] [facility] [address] [place] [address] Fermín Rivera MD [address] [place] [address] [facility] CardiologyStart: 02-24-2024 Influenza vaccinationInfluenza VaccineProMedica Health SystemStart: 02-22-2024 End: 00-03-5998Dybkbasyj to same day surgery bwqyva1802/22/2024 3:39 PM EDT - 02/22/2024 5:52 PM EDT Surgery [address] [phone] Brandon Rendon MD [address] [facility], [address] [place], [place] REPAIR HERNIA UMBILICALJoint Township District Memorial HospitalComment on above:REPAIR HERNIA UMBILICALStart: 02-22-2024 End: 95-27-6486LUBERUEL LESION SKIN MIDSECTIONEXCISION LESION SKIN MIDSECTION UMBILICAL HERNIA 02/22/2024 3:39 PM EDCounts include [facility] the [facility]: 02-22-2024 End: 94-17-8061SLQITR HERNIA UMBILICALREPAIR HERNIA UMBILICAL UMBILICAL HERNIA 02/22/2024 3:39 PM EDCounts include 234 beds at the [facility]: 87-13-2993Omfafoesud hospital visit by gnbkbgyyw27/30/2024 3:39 PM EDT Hospital Encounter [address] [address] Brandon Rendon MD [address] [facility], [address] [place] [address] [facility] HospitalStart: 06-06-2023 End: 08-13-7133Nniakvr aminotransferase [Enzymatic activity/volume] in Serum or Plasma by With P-5'-PAlanine Aminotransferase Lab Routine Mixed hyperlipidemia Expected: 06/06/2023 (Approximate), Expires: 06/06/2024[facility] Service Area Work Phone: Comment on above:Expected: 06/06/2023 (Approximate), Expires: 06/06/2024Start: 06-06-2023 End: 67-06-2868Zjobrtrxy aminotransferase [Enzymatic activity/volume] in Serum or Plasma by With P-5'-PAspartate Aminotransferase Lab Routine Mixed hyperlipidemia Expected: 06/06/2023 (Approximate), Expires: 06/06/2024UnHocking [facility] Hospital Work Phone: Comment on above:Expected: 06/06/2023 (Approximate), Expires: 06/06/2024Start: 06-06-2023 End: 20-87-3648Quvwu 1996 panel - Serum or PlasmaLipid Panel Lab Routine Mixed hyperlipidemia Expected: 06/06/2023 (Approximate), Expires: 06/06/2024UnHocking [facility] Work Phone: Comment on above:Expected: 06/06/2023 (Approximate), Expires: 06/06/2024Start: 74-94-7477HIF, Provider: Johnathan Howe, Status: Pen, Time: 10:50 AMFUV, Provider: Johnathan Howe, Status: Pen, Time: 10:50 AM[address] [address] DO Work Phone: Start: 46-06-6738Kcsddidxu vaccinationInfluenza Vaccine (#1)[facility]Start: 51-44-2149BLF, Provider: Maureen Dominguez, Status: Pen, Time: 1:00 PMFUV, Provider: Maureen Dominguez, Status: Pen, Time: 1:00 [facility] 250 DO Work Phone: Start: 31-32-0664UPZ, Provider: Johnathan Howe, Status: Pen, Time: 11:10 AMFUV, Provider: Johnathan Howe, Status: Pen, Time: 11:10 AMTwo [facility] 250 DO Work Phone: Start: 05-34-6633FMS, Provider: Johnathan Howe, Status: Pen, Time: 2:30 PMFUV, Provider: Johnathan Howe, Status: Pen, Time: 2:30 PM-[facility] [address] [place] Work Phone: Start: 11-76-4168KKX, Provider: Johnathan Howe, Status: Pen, Time: 1:00 PMFUV, Provider: Johnathan Howe, Status: Pen, Time: 1:00 PM-[facility] 600 DO Work Phone: Start: 54-90-5886Fazm Risk ScreeningFall Risk ScreeningSentara Albemarle Medical Centertart: 45-36-6113Cdlmxeczizjvmb of varicella zoster vaccineZoster (Shingles) Vaccine (1 of 2)[facility]Start: 65-83-4665Ajlsye Vaccines (1 of 2)Zoster Vaccines (1 of 2)[facility]: 94-79-2643OAxA/Tdap/Td Vaccines (1 - Tdap)DTaP/Tdap/Td Vaccines (1 - Tdap)[facility]: 50-42-6870VImH,Tdap and Td Vaccines (1 - Tdap)DTaP,Tdap and Td Vaccines (1 - Tdap)[facility] Centertart: 88-53-9035Zvrqi BMI Follow Up PlanAdult BMI Follow Up PlanSentara Albemarle Medical Centertart: 14-48-3166Gzvzujzub C screeningHepatitis C Screening [facility]: 61-69-2226Efnspbulvptq Vaccine: 65+ Years (1 - PCV)Pneumococcal Vaccine: 65+ Years (1 - PCV)[facility]: 40-62-0256DYSGD-19 Vaccine (#1)COVID-19 Vaccine (#1)[facility]: 30-50-2223Lbgfm panelLipid PanelUnKing's Daughters Medical Center [place]: 1950Medicare Annual Wellness VisitUnKing's Daughters Medical Center [place]: 63-58-3082Xqldojdjl for malignant neoplasm of colon [facility] Immunizations Immunization DateImmunizationNotesCare ShnuvwsfCjzyaram87-36-9953nycuhtcmi virus vaccine, unspecified formulationHola Villafuerte Work Phone: [phone]-AipmrWelia Health 600 DO Work Phone: [phone], high dose seasonal, preservative-Nav Kelly Hoy Work Phone: [facility]02-23-2021Fluzone High-Dose Quadrivalent 0.7 ML Intramuscular Suspension Prefilled SyringeHola Villafuerte Work Phone: [phone]-Nbtps [facility] 600 DO Work Phone: Payers DatePayer CategoryPayerPolicy ID2016Medicare [id number] [id number] 1950 [id number] 2.16.840.1.088619.3.57[id number] 2.16.840.1.567544.3.57[id number] 2.16.840.1.829810.3.57[id number] 2.16.840.1.947163.3.57[id number] 2.16.840.1.908675.3.57[id number] 2.16.840.1.375845.3.57[id number] 2.16.840.1.546021.3.57[id number] 2.16.840.1.993214.3.57[id number] 2.16.840.1.659390.3.57[id number] 2.16.840.1.525794.3.57[id number] 2.16.840.1.465624.3.57[id number] 2.16.840.1.779484.3.57[id number] 2.16.840.1.978376.3.57[id number] 2.16.840.1.964477.3.57[id number] 2.16.840.1.789769.3.57[id number] 2.16.840.1.191342.3.57[id number] 2.16.840.1.252596.3.57[id number] 2.16.840.1.676564.3.57[id number] 2.16.840.1.615005.3.57[id number] 2.16.840.1.654365.3.579.2.7[id number] 2.16.840.1.979802.3.57[id number] 2.16.840.1.496939.3.57[id number] 2.16.840.1.418425.3.57[id number] 2.16.840.1.283160.3.57[id number] 2..840.1.058208.3.57[id number] 2.16.840.1.098095.3.57[id number] 2.16.840.1.265633.3.57[id number] 2.16.840.1.148399.3.579.2.7[id number] 2.16.840.1.511369.3.579.2.1286UnknownMEDICARE Social History DateTypeDetailFacilityStart: 06-06-2023 End: 54-52-1124Ke illicit drug useNo illicit drug useWelia Health 600 DO Work Phone: Comment on above:pop once in awhile;Start: 06-06-2023 End: 83-76-4591Oklfggb smoking status NHISNever smoked tobaccoUnHocking Valley Community HospitalStart: 06-06-2023 End: 18-13-0674Npqpcux use and exposureSmokeless tobacco non-userUnHocking Valley Community Hospital Work Phone: Start: 26-35-1927Oclgcci intakeLifetime non-drinker (finding)[facility] Work Phone: Start: 06-06-2023 End: 85-56-1819Ifwmnfq use panelUnHocking Valley Community Hospital Work Phone: Start: 16-27-5260Vrd Assigned At BirthNot on file [facility] Work Phone: Start: 05-27-2023 End: 57-04-1110Ytyqxmbm to SARS-CoV-2 (event)Not sureUnHocking Valley Community HospitalStart: 06-27-2024 End: 71-66-7365Vdmqgbwmf beverage intakeEx-drinker (finding)[facility] Mobile On Services [facility] HospitalHas the electric, gas, oil, or water company threatened to shut off services in your home in past 12MoNDunlap Memorial HospitalAdolescent depression screening ohzwnasdgk2HpeWzmwmu Mobile On Services [facility] Hospitaltart: 13-89-4170MsvQfcp (finding) [facility] HospitalDigital Room, Inc Goals DatePatient GoalDesired Activity/StatePersonal health goalComment on above: Evaluation of progress towards goal: with home health/ [facility] for wound vacPersonal health goalComment on above: Evaluation of progress towards goal: Pt informed program writer he was feeling better. Clinical Notes 03-17-2021 to 10-15-2024 Note Date & JqcuBzsmIxaiohgg71-64-8037 History of Present illness Narrative* Isatu Sargent, SQUADRON WORKER-INSPECTOR AND HAND PACKAGER - 10/15/2024 9:20 AM EDT Images from the original note were not included. Wound Care Progress Note Patient: Lino Peters Date of : 1950 Chief Complaint: abdominal wound follow up SUBJECTIVE/HPI: Lino is a 74 y.o. male who presents to [facility] for evaluation of 1 ulcer(s) on the mid abdomen. Patient established with wound clinic on 03/28/2024. Current daily woundcare includes: wash mild soap and water, cover with Vaseline apply daily. 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 The apron is protecting the abdomen from being wet all day. Patient was hospitalized for a very large umbilical hernia repair which was completed 02/22/2024 by. Patient reports hernia was present for at least 27 years.Patient's chart was reviewed forall available supporting documentation, laboratory results and radiographic examination. Measurable wound changes: resolved Patient accompanied by: self, ambulates Nutritional screen shows patient does take in three servings of protein per day. Patient does deny fever, chills, sweats, or other signs of infection. Prescribed antibiotics: none Today's reported Blood Sugar: Non applicable No results found for: HGBA1C Tobacco use: denied - never a smoker Contributing comorbid conditions: atrial fibrillation treated with Eliquis, COPD,BMI 41.93 Patient Active Problem List Diagnosis Pneumonia due to COVID-19 virus Diarrhea of infectious origin Longstanding persistent atrial fibrillation [place] Coronary artery disease involving red devil coronary artery Skin infection Morbid obesity due to excess calories ([facility] Strangulated hernia of abdominal wall Incarcerated ventral hernia COPD (chronic obstructive pulmonary disease) ([facility] [place] Hypert[place] heart [place] with [place] [place]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 Non-healing surgical wound Essential hypertension Encounter for therapeutic drug level monitoring Heart failure, unspecified [place] [place] [facility] [place] Past Medical History: Diagnosis Date Atrial fibrillation [place] [place] [place] Coronary artery disease GERD (gastroesophageal reflux disease) Hyperlipidemia Hypertension NSTEMI (non-ST elevated myocardial infarction) [place] [place] infection 02/20/2024 Past Surgical History: Procedure Laterality Date CARDIAC SURGERY stent DEBRIDEMENT AND EXCISION SKIN TO FASCIA N/A 02/22/2024 Performed by Brandon Rendon MD at [facility] REPAIR HERNIA UMBILICAL N/A 02/22/2024 Performed by Brandon Rendon MD at [facility] Current Outpatient Medications Medication Sig Dispense Refill acetaminophen (TYLENOL EXTRA STRENGTH) 500 mg tablet Take 2 tablets (1,000 mg total) by mouth every6 (six) hours as needed for pain. 30 tablet 0 metoprolol tartrate (LOPRESSOR) 25 mg tablet Take 1 tablet (25 mg total) by mouth in the morning and 1 tablet (25 mg total) before bedtime. (Patient not taking: Reported on 10/15/2024) No current facility-administered medications for this visit. No Known Allergies Social Drivers of Health Food Insecurity: No Food Insecurity (10/15/2024) Hunger Screening Food Insecurity - Worry: Never True Food Insecurity - Inability: Never True Housing Instability: Low Risk (02/20/2024) Housing Instability Housing Instability: No Transportation Needs: No Transportation Needs (02/20/2024) PRAPARE - Transportation Lack of Transportation (Medical): No Lack of Transportation (Non-Medical): No Utility Difficulties: Not At Risk (02/20/2024) [facility] Utilities Threatened with loss of utilities: No Interpersonal Safety: Not At Risk (02/20/2024) Humiliation, Afraid, Rape, and Kick questionnaire Fear of Current or Ex-Partner: No Emotionally Abused: No Physically Abused: No Sexually Abused: No Financial Resource Strain: Not on file Childcare: Unknown (12/04/2018) Childcare Childcare: Unknown Recent Concern: Childcare - High Risk (09/18/2018) Childcare Childcare: Unknown Employment: Unknown (12/04/2018) Employment Employment: Unknown Recent Concern: Employment - High Risk (09/18/2018) Employment Employment: Unknown Purpose - Life: Not on file Depression: Not at risk (02/20/2024) PHQ-2 PHQ-2 Score: 0 Alcohol Use: Not on file Tobacco Use: Low Risk (09/24/2024) Patient History Smoking Tobacco Use: Never Smokeless Tobacco Use: Never Passive Exposure: Not on file Social Connections: Not on file Physical Activity: Not on file Stress: Not on file The following portions of the patient's history were reviewed and updated as appropriate: allergies, current medications, past family history, past medical history, past social history, past surgicalhistory, problem list, and medication reconciliation was completed including current medication andpost discharge medication. Pain Scale:denies Pain Scale 0/10: 0 Review of Systems Constitutional: Negative. Negative for activity change, appetite change and fever. HENT: Positive for hearing loss. Negative for trouble swallowing. Respiratory: Positive for shortness of breath. Negative for cough and wheezing. Cardiovascular: Negative. Negative for chest pain, palpitations and leg swelling. Gastrointestinal: Positive for diarrhea. Negative for abdominal distention, nausea and vomiting. Genitourinary: Negative. Negative for dysuria, frequency and urgency. Musculoskeletal: Negative. Negative for neck stiffness. Skin: Positive for color change and wound. Neurological: Negative. Negative for dizziness, numbness and headaches. Objective: Vitals: 10/15/24 0934 BP: 162/79 Pulse: 120 Resp: 18 Temp: 36.4 C (97.5 F) Physical Exam Vitals and nursing note reviewed. Constitutional: Appearance: He is well-developed. HENT: Head: Normocephalic and atraumatic. Cardiovascular: Rate and Rhythm: Regular rhythm. Tachycardia present. Heart sounds: Normal heart sounds. No murmur heard. No gallop. Pulmonary: Effort: Pulmonary effort is normal. Breath sounds: Normal breath sounds. No wheezing. Abdominal: General: Bowel sounds are normal. Palpations: Abdomen is soft. Tenderness: There is no abdominal tenderness. Musculoskeletal: General: Normal range of motion. Cervical back: Normal range of motion. Skin: General: Skin is warm and dry. Findings: Rash (red, macular, dry) present. Neurological: Mental Status: He is alert and oriented to person, place, and time. Wound Assessment Assessment/Plan/Education: 1. 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 Patient instructed in surgical wound care to abdomen. 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 Follow up in wound clinic PRN Instructed to contact wound clinic, PCP or ER should symptoms worsen. The patient was taught to watch for S/S of infection (redness, pus, pain, increased swelling, chills or fever) and to call the PCP or wound care clinic if such occurs. The patient was educated on offloading the area by avoiding direct pressure to the wound bed. Education as well as the pathophysiology of the disease process was provided on infection, edema, necrotic tissue and its relationship tononhealing wounds. Education was also provided on treatment plan. Patient verbalized understanding. Total time spent was 15 minutes: Preparing to see the patient (e.g., review of tests) Obtaining and/or reviewing separately obtained history Performing a medically appropriate examination and/or evaluation Counseling and educating the patient/family/caregiver Ordering medications, tests, or procedures Documenting clinical information in the electronic or other health record - ISATU SARGENT APRN-JOSE ANTONIO 10/15/24 10:14 AM Isatu Sargent APRN, INSPECTOR AND HAND PACKAGER, CWS, [facility]: [phone] Isatu Sargent APRN-JOSE ANTONIO 03/28/24 1330 ARMANI Merida 04/25/24 1337 Isatu Sargent APRN-JOSE ANTONIO 05/09/24 1351 Isatu Sargent APRN-JOSE ANTONIO 05/30/24 1339 Isatu Sargent APRN-JOSE ANTONIO 06/11/24 1436 Isatu Sargent APRN-JOSE ANTONIO 06/27/24 1535 Isatu Sargent APRN-INSPECTOR AND HAND PACKAGER 07/11/24 1508 Isatu Sargent APRN-INSPECTOR AND HAND PACKAGER 07/25/24 1153 Isatu Sargent APRN-INSPECTOR AND HAND PACKAGER 08/08/24 1146 Isatu Sargent APRN-JOSE ANTONIO 08/22/24 1427 Isatu Sargent, DANIEL-INSPECTOR AND HAND PACKAGER 09/24/24 0911 Isatu Sargent APRN-INSPECTOR AND HAND PACKAGER 10/15/24 1016 documented in this [facility]04-23-2025 Instructions* Patient Instructions* Kandy Harris RN - 10/15/2024 9:20 AM EDT STOP steroid cream Wound Management Treatment Plan Wound Location(s): mid abdomen surgical site: HEALED IN CLINIC 10/15/24 -Apply Vaseline to healed area and dry areas around it everyday(Make sure to do before work) -Keep area dry especially when working and washing dishes ACTIVITY: Avoid direct pressure to wound(s) at all times NUTRITION: High protein diet SKIN CARE: keep wound covered at all times SWELLING CONTROL: ITEMS TO FOLLOW UP ON: None Length Width Depth [REMOVED] Wound 03/28/24 1 Other (comment) Abdomen Mid-Wound Length (cm): 0 cm [REMOVED] Wound 03/28/24 1 Other (comment) Abdomen Mid-Wound Width (cm): 0 cm [REMOVED] Wound 03/28/24 1 Other (comment)Abdomen Mid-Wound Depth (cm): 0 cm Wound drainage Type Description none documented in this [facility]04-02-2025 History of Present illness Narrative* ARMANI Merida - 09/24/2024 8:20 AM EDT Images from the original note were not included. Wound Care Progress Note Patient: Lino Peters Date of : 1950 Chief Complaint: abdominal wound follow up SUBJECTIVE/HPI: Lino is a 74 y.o. male who presents to [facility] for evaluation of 1 ulcer(s) on the mid abdomen. Patient established with wound clinic on 03/28/2024. Current daily woundcare includes: wash mild soap and water, cover with Vaseline apply daily. 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 The apron is protecting the abdomen from being wet all day. Patient was hospitalized for a very large umbilical hernia repair which was completed 02/22/2024 by. Patient reports hernia was present for at least 27 years.Patient's chart was reviewed forall available supporting documentation, laboratory results and radiographic examination. Measurable wound changes: heavy scab over area, less tanya wound irritation Patient accompanied by: self, ambulates Nutritional screen shows patient does take in three servings of protein per day. Patient does deny fever, chills, sweats, or other signs of infection. Prescribed antibiotics: none Today's reported Blood Sugar: Non applicable No results found for: HGBA1C Tobacco use: denied - never a smoker Contributing comorbid conditions: atrial fibrillation treated with Eliquis, COPD,BMI 41.93 Patient Active Problem List Diagnosis Pneumonia due to COVID-19 virus Diarrhea of infectious origin Longstanding persistent atrial fibrillation ([facility]) Coronary artery disease involving red devil coronary artery Skin infection Morbid obesity due to excess calories [place] [place] [facility] [place] Strangulated hernia of abdominal wall Incarcerated ventral hernia COPD (chronic obstructive pulmonary disease) [place] [place] [facility] [place] Hypertensive heart disease with heart failure [place] [place] [facility] [place]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 Non-healing surgical wound Essential hypertension Encounter for therapeutic drug level monitoring Heart failure, unspecified [place] [place] [facility] [place] Past Medical History: Diagnosis Date Atrial fibrillation [place] [place] [facility] [place] Coronary artery disease GERD (gastroesophageal reflux disease) Hyperlipidemia Hypertension NSTEMI (non-ST elevated myocardial infarction) [place] [place] [facility] [place] Skin infection 02/20/2024 Past Surgical History: Procedure Laterality Date CARDIAC SURGERY stent DEBRIDEMENT AND EXCISION SKIN TO FASCIA N/A 02/22/2024 Performed by Brandon Rendon MD at [facility] REPAIR HERNIA UMBILICAL N/A 02/22/2024 Performed by Brandon Rendon MD at [facility] Current Outpatient Medications Medication Sig Dispense Refill acetaminophen (TYLENOL EXTRA STRENGTH) 500 mg tablet Take 2 tablets (1,000 mg total) by mouth every6 (six) hours as needed for pain. 30 tablet 0 metoprolol tartrate (LOPRESSOR) 25 mg tablet Take 1 tablet (25 mg total) by mouth in the morning and 1 tablet (25 mg total) before bedtime. No current facility-administered medications for this visit. Facility-Administered Medications Ordered in Other Visits Medication Dose Route Frequency Provider Last Rate Last Admin triamcinolone (KENALOG) 0.1 % cream 1 Application 1 Application topical PRNato Isatu Osorio [id number] Application at 06/27/24 1551 No Known Allergies Social Drivers of Health Food Insecurity: No Food Insecurity (09/24/2024) Hunger Screening Food Insecurity - Worry: Never True Food Insecurity - Inability: Never True Housing Instability: Low Risk (02/20/2024) Housing Instability Housing Instability: No Transportation Needs: No Transportation Needs (02/20/2024) PRAPARE - Transportation Lack of Transportation (Medical): No Lack of Transportation (Non-Medical): No Utility Difficulties: Not At Risk (02/20/2024) [facility] Utilities Threatened with loss of utilities: No Interpersonal Safety: Not At Risk (02/20/2024) Humiliation, Afraid, Rape, and Kick questionnaire Fear of Current or Ex-Partner: No Emotionally Abused: No Physically Abused: No Sexually Abused: No Financial Resource Strain: Not on file Childcare: Unknown (12/04/2018) Childcare Childcare: Unknown Recent Concern: Childcare - High Risk (09/18/2018) Childcare Childcare: Unknown Employment: Unknown (12/04/2018) Employment Employment: Unknown Recent Concern: Employment - High Risk (09/18/2018) Employment Employment: Unknown Purpose - Life: Not on file Depression: Not at risk (02/20/2024) PHQ-2 PHQ-2 Score: 0 Alcohol Use: Not on file Tobacco Use: Low Risk (09/24/2024) Patient History Smoking Tobacco Use: Never Smokeless Tobacco Use: Never Passive Exposure: Not on file Social Connections: Not on file Physical Activity: Not on file Stress: Not on file The following portions of the patient's history were reviewed and updated as appropriate: allergies, current medications, past family history, past medical history, past social history, past surgicalhistory, problem list, and medication reconciliation was completed including current medication andpost discharge medication. Pain Scale:denies Pain Scale 0/10: 0 Review of Systems Constitutional: Negative. Negative for activity change, appetite change and fever. HENT: Positive for hearing loss. Negative for trouble swallowing. Respiratory: Positive for shortness of breath. Negative for cough and wheezing. Cardiovascular: Negative. Negative for chest pain, palpitations and leg swelling. Gastrointestinal: Positive for diarrhea. Negative for abdominal distention, nausea and vomiting. Genitourinary: Negative. Negative for dysuria, frequency and urgency. Musculoskeletal: Negative. Negative for neck stiffness. Skin: Positive for color change and wound. Neurological: Negative. Negative for dizziness, numbness and headaches. Objective: Vitals: 09/24/24821 BP: 117/77 Pulse: 111 Temp: 36.8 C (98.2 F) Physical Exam Vitals and nursing note reviewed. Constitutional: Appearance: He is well-developed. HENT: Head: Normocephalic and atraumatic. Cardiovascular: Rate and Rhythm: Regular rhythm. Tachycardia present. Heart sounds: Normal heart sounds. No murmur heard. No gallop. Pulmonary: Effort: Pulmonary effort is normal. Breath sounds: Normal breath sounds. No wheezing. Abdominal: General: Bowel sounds are normal. Palpations: Abdomen is soft. Tenderness: There is no abdominal tenderness. Musculoskeletal: General: Normal range of motion. Cervical back: Normal range of motion. Skin: General: Skin is warm and dry. Findings: Rash (red, macular, dry) present. Neurological: Mental Status: He is alert and oriented to person, place, and time. Wound Assessment Wound 03/28/24 1 Other (comment) Abdomen Mid (Active) Wound Image 09/24/24840 Site Assessment Dry;Yellow;Brown 09/24/24840 Tanya-wound Assessment Blanchable erythema 09/24/24840 Wound Length (cm) 2.9 cm 09/24/24840 Wound Width (cm) 2.5 cm 09/24/24840 Wound Surface Area (cm^2) 7.25 cm^2 09/24/24840 Change in Wound Size % 94.56 09/24/24840 Drainage Amount None 09/24/24840 Debridement Performed? N 09/24/24840 Dressing Type Open to air 09/24/24840 Dressing Changed Changed 09/24/24840 Dressing Status Clean;Dry;Intact 09/24/24840 Wound Bed Slough (%) 100% 04/02/25 0841 Assessment/Plan/Education: 1. Irritant contact dermatitis due to other chemical products 2. 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 STOP steroid ointment Patient instructed in surgical wound care to abdomen. Short term goal: medical compliance FDC goal: wound closure Patient verbalize understanding of treatment regimen and the importance of adherence. Follow up in wound clinic in 3 weeks Instructed to contact wound clinic, PCP or ER should symptoms worsen. The patient was taught to watch for S/S of infection (redness, pus, pain, increased swelling, chills or fever) and to call the PCP or wound care clinic if such occurs. The patient was educated on offloading the area by avoiding direct pressure to the wound bed. Education as well as the pathophysiology of the disease process was provided on infection, edema, necrotic tissue and its relationship tononhealing wounds. Education was also provided on treatment plan. Patient verbalized understanding. Total time spent was 15 minutes: Preparing to see the patient (e.g., review of tests) Obtaining and/or reviewing separately obtained history Performing a medically appropriate examination and/or evaluation Counseling and educating the patient/family/caregiver Ordering medications, tests, or procedures Documenting clinical information in the electronic or other health record - ISATU SARGENT APRN-INSPECTOR AND HAND PACKAGER 09/24/24 8:49 AM Isatu Sargent APRN, INSPECTOR AND HAND PACKAGER, CWS, [facility]: [phone] Isatu Sargent APRN-JOSE ANTONIO 03/28/24 1330 Isatu Sargent, DANIEL-INSPECTOR AND HAND PACKAGER 04/25/24 1337 Isatu Sargent, DANIEL-INSPECTOR AND HAND PACKAGER 05/09/24 1351 Isatu Sargent, DANIEL-INSPECTOR AND HAND PACKAGER 05/30/24 1339 Isatu Sargent, DANIEL-INSPECTOR AND HAND PACKAGER 06/11/24 1436 Isatu Sargent, SQUADRON WORKER-INSPECTOR AND HAND PACKAGER 06/27/24 1535 Isatu Sargent, SQUADRON WORKER-INSPECTOR AND HAND PACKAGER 07/11/24 1508 Isatu Sargent, SQUADRON WORKER-INSPECTOR AND HAND PACKAGER 07/25/24 1153 Isatu Sargent, SQUADRON WORKER-INSPECTOR AND HAND PACKAGER 08/08/24 1146 Isatu Sargent, SQUADRON WORKER-INSPECTOR AND HAND PACKAGER 08/22/24 1427 ARMANI Merida 09/24/24 0911 documented in this [facility]04-02-2025 Instructions* Patient Instructions* Tereso Wayne RN - 09/24/2024 8:20 AM EDT STOP steroid cream Wound Management Treatment Plan Wound Location(s): mid abdomen surgical site HOW TO CARE FOR YOUR WOUND The following should be performed once a day and as needed to keep clean and dry STEP 1: Cleanse wound with Soap and water, rinse well, and pat dry. Irrigate or rinse wound with NO IRRIGATION REQUIRED. STEP 2: Apply Vaseline to wound and dry areas around it (Make sure to do before work) Keep area dry especially when working and washing dishes ACTIVITY: Avoid direct pressure to wound(s) at all times NUTRITION: High protein diet SKIN CARE: keep wound covered at all times SWELLING CONTROL: ITEMS TO FOLLOW UP ON: None Length Width Depth Wound drainage Type Description [facility] History of Present illness Narrative* ARMANI Merida - 08/22/2024 1:40 PM EST Images from the original note were not included. Wound Care Progress Note Patient: Lino Peters Date of : 1950 Chief Compliant: abdominal wound follow up SUBJECTIVE/HPI: Lino is a 74 y.o. male who presents to [facility] for evaluation of 1 ulcer(s) on the mid abdomen. Patient established with wound clinic on 03/28/2024. Current daily woundcare includes: wash mild soap and water, cover with Vaseline apply daily. 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 The apron is protecting the abdomen from being wet all day. Patient was hospitalized for a very large umbilical hernia repair which was completed 02/22/2024 by. Patient reports hernia was present for at least 27 years.Patient's chart was reviewed forall available supporting documentation, laboratory results and radiographic examination. Measurable wound changes: decrease wound measurement Patient accompanied by: self, ambulates Nutritional screen shows patient does take in three servings of protein per day. Patient does deny fever, chills, sweats, or other signs of infection. Prescribed antibiotics: none Today's reported Blood Sugar: Non applicable No results found for: HGBA1C Tobacco use: denied - never a smoker Contributing comorbid conditions: atrial fibrillation treated with Eliquis, COPD,BMI 41.93 Patient Active Problem List Diagnosis Pneumonia due to COVID-19 virus Diarrhea of infectious origin Longstanding persistent atrial fibrillation [place] [place] [facility] [place] Coronary artery disease involving red devil coronary artery Skin infection Morbid obesity due to excess calories [place] [place] [place] Strangulated hernia of abdominal wall Incarcerated ventral hernia COPD (chronic obstructive pulmonary disease) [place] [place] [facility] [place] Hypertensive heart disease with heart failure [place] [place] [facility] [place] 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 Non-healing surgical wound Essential hypertension Encounter for therapeutic drug level monitoring Heart failure, unspecified [place] [place] [facility] [place] Past Medical History: Diagnosis Date Atrial fibrillation [place] [place] [place] Coronary artery disease GERD (gastroesophageal reflux disease) Hyperlipidemia Hypertension NSTEMI (non-ST elevated myocardial infarction) [place] [place] [place] Skin infection 02/20/2024 Past Surgical History: Procedure Laterality Date CARDIAC SURGERY stent DEBRIDEMENT AND EXCISION SKIN TO FASCIA N/A 02/22/2024 Performed by Brandon Rendon MD at [facility] REPAIR HERNIA UMBILICAL N/A 02/22/2024 Performed by Brandon Rendon MD at [facility] Current Outpatient Medications Medication Sig Dispense Refill acetaminophen (TYLENOL EXTRA STRENGTH) 500 mg tablet Take 2 tablets (1,000 mg total) by mouth every6 (six) hours as needed for pain. 30 tablet 0 metoprolol tartrate (LOPRESSOR) 25 mg tablet Take 1 tablet (25 mg total) by mouth in the morning and 1 tablet (25 mg total) before bedtime. No current facility-administered medications for this visit. Facility-Administered Medications Ordered in Other Visits Medication Dose Route Frequency Provider Last Rate Last Admin triamcinolone (KENALOG) 0.1 % cream 1 Application 1 Application topical PRN Isatu Sargent APRN-CNP1 Application at 06/27/24 1551 No Known Allergies Social Drivers of Health Food Insecurity: No Food Insecurity (08/22/2024) Hunger Screening Food Insecurity - Worry: Never True Food Insecurity - Inability: Never True Housing Instability: Low Risk (02/20/2024) Housing Instability Housing Instability: No Transportation Needs: No Transportation Needs (02/20/2024) PRAPARE - Transportation Lack of Transportation (Medical): No Lack of Transportation (Non-Medical): No Utility Difficulties: Not At Risk (02/20/2024) [facility] Utilities Threatened with loss of utilities: No Interpersonal Safety: Not At Risk (02/20/2024) Humiliation, Afraid, Rape, and Kick questionnaire Fear of Current or Ex-Partner: No Emotionally Abused: No Physically Abused: No Sexually Abused: No Financial Resource Strain: Not on file Childcare: Unknown (12/04/2018) Childcare Childcare: Unknown Recent Concern: Childcare - High Risk (09/18/2018) Childcare Childcare: Unknown Employment: Unknown (12/04/2018) Employment Employment: Unknown Recent Concern: Employment - High Risk (09/18/2018) Employment Employment: Unknown Purpose - Life: Not on file Depression: Not at risk (02/20/2024) PHQ-2 PHQ-2 Score: 0 Alcohol Use: Not on file Tobacco Use: Low Risk (08/22/2024) Patient History Smoking Tobacco Use: Never Smokeless Tobacco Use: Never Passive Exposure: Not on file Social Connections: Not on file Physical Activity: Not on file Stress: Not on file The following portions of the patient's history were reviewed and updated as appropriate: allergies, current medications, past family history, past medical history, past social history, past surgicalhistory, problem list, and medication reconciliation was completed including current medication andpost discharge medication. Pain Scale:denies Pain Scale 0/10: 0 Review of Systems Constitutional: Negative. Negative for activity change, appetite change and fever. HENT: Positive for hearing loss. Negative for trouble swallowing. Respiratory: Positive for shortness of breath. Negative for cough and wheezing. Cardiovascular: Negative. Negative for chest pain, palpitations and leg swelling. Gastrointestinal: Positive for diarrhea. Negative for abdominal distention, nausea and vomiting. Genitourinary: Negative. Negative for dysuria, frequency and urgency. Musculoskeletal: Negative. Negative for neck stiffness. Skin: Positive for color change and wound. Neurological: Negative. Negative for dizziness, numbness and headaches. Objective: Vitals: 08/22/24 1350 BP: 175/87 Pulse: 100 Temp: 36.6 C (97.8 F) Physical Exam Vitals and nursing note reviewed. Constitutional: Appearance: He is well-developed. HENT: Head: Normocephalic and atraumatic. Cardiovascular: Rate and Rhythm: Regular rhythm. Tachycardia present. Heart sounds: Normal heart sounds. No murmur heard. No gallop. Pulmonary: Effort: Pulmonary effort is normal. Breath sounds: Normal breath sounds. No wheezing. Abdominal: General: Bowel sounds are normal. Palpations: Abdomen is soft. Tenderness: There is no abdominal tenderness. Musculoskeletal: General: Normal range of motion. Cervical back: Normal range of motion. Skin: General: Skin is warm and dry. Findings: Rash (red, macular, dry) present. Neurological: Mental Status: He is alert and oriented to person, place, and time. Wound Assessment Wound 03/28/24 1 Other (comment) Abdomen Mid (Active) Wound Image Heavy crust removed 08/22/241356 Site Assessment Dry;Yellow;Brown 08/22/241356 Tanya-wound Assessment Blanchable erythema 08/22/241356 Wound Length (cm) 1.8 cm 08/22/24 1400 Wound Width (cm) 2.3 cm 08/22/24 1400 Wound Surface Area (cm^2) 4.14 cm^2 08/22/24 1400 Wound Depth (cm) 0.1 cm 08/22/24 1400 Wound Volume (cm^3) 0.414 cm^3 08/22/24 1400 Change in Wound Size % 96.89 08/22/24 1400 Drainage Amount None 08/22/247 Treatments Cleansed with;Wound cleanser;Soak with;Vashe/Hypochlorous Acid 08/22/24 1357 Debridement Performed? Y 08/22/24 1400 Type of Debridement Selective 08/22/24 1400 Discussion: Debridement is the removal of foreign material and/or devitalized tissue until healthy tissue is exposed. Risks, benefits and alternatives were discussed with the patient. We discussed possible complications, including infection and bleeding. Written consent was obtained prior to the procedure. Timeout procedure completed. Goal of debridement includes: removal of devitalized tissue, decrease risk of infection, promote wound healing and prevent further complications. Procedure: Debridement/Procedure Level: Removal of devitalized tissue, nonviable tissue and/or infection. Selective Instrument Used: Curette Anesthesia vashe Bleeding: Small Bleeding Control: Pressure Added Pain Control: None Specimen Taken: None Total Surface Area of Debridement: 4.14cm2 Patient tolerates procedure well Assessment/Plan/Education: 1. Non-healing surgical wound, initial encounter 2. 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 STOP steroid ointment Patient instructed in surgical wound care to abdomen. 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 Follow up in wound clinic in 4 weeks Instructed to contact wound clinic, PCP or ER should symptoms worsen. The patient was taught to watch for S/S of infection (redness, pus, pain, increased swelling, chills or fever) and to call the PCP or wound care clinic if such occurs. The patient was educated on offloading the area by avoiding direct pressure to the wound bed. Education as well as the pathophysiology of the disease process was provided on infection, edema, necrotic tissue and its relationship tononhealing wounds. Education was also provided on treatment plan. Patient verbalized understanding. Total time spent was 19 minutes: Preparing to see the patient (e.g., review of tests) Obtaining and/or reviewing separately obtained history Performing a medically appropriate examination and/or evaluation Counseling and educating the patient/family/caregiver Ordering medications, tests, or procedures Documenting clinical information in the electronic or other health record - ARMANI MERIDA 08/22/24 2:24 PM Isatu Sargent APRN, INSPECTOR AND HAND PACKAGER, CWS, [facility]: [phone] ARMANI Merida 03/28/24 1330 ARMANI Merida 04/25/24 1337 ARMANI Merida 05/09/24 1351 Isatu Sargent APRN-[facility] 05/30/24 1339 [facility] 06/11/24 1436 Isatu Sargent APRN[facility] 06/27/24 1535 Isatu Sargent APRN[facility] 07/11/24 1508 Isatu Sargent APRN[facility] 07/25/24 1153 Isatu Sargent APRN[facility] 08/08/24 1146 Isatu Sargent APRNJO[facility] 08/22/24 1427 documented in this [facility]02-28-2025 Instructions* Patient Instructions* Tereso Wayne RN - 08/22/2024 1:40 PM EST STOP steroid cream Wound Management Treatment Plan Wound Location(s): mid abdomen surgical site HOW TO CARE FOR YOUR WOUND The following should be performed once a day and as needed to keep clean and dry STEP 1: Cleanse wound with Soap and water, rinse well, and pat dry. Irrigate or rinse wound with NO IRRIGATION REQUIRED. STEP 2: Apply Vaseline to wound and dry areas around it (Make sure to do before work) ACTIVITY: Avoid direct pressure to wound(s) at all times NUTRITION: High protein diet SKIN CARE: keep wound covered at all times SWELLING CONTROL: ITEMS TO FOLLOW UP ON: None Length Width Depth Wound drainage Type Description none documented in this [facility]02-14-2025 History of Present illness Narrative* ARMANI Merida - 08/08/2024 10:40 AM EST Images from the original note were not included. Wound Care Progress Note Patient: Lino Peters Date of : 1950 Chief Compliant: abdominal wound follow up SUBJECTIVE/HPI: Lino is a 74 y.o. male who presents to [facility] for evaluation of 1 ulcer(s) on the mid abdomen. Patient established with wound clinic on 03/28/2024. Current daily woundcare includes: wash mild soap and water, cover with dry gauze and minimal adhesive, change daily. Twice daily application of triamcinolone 0.1% ointment to abdominal wall. 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 Reports his abdomen is always wet from leaning over the sink and dish water. Patient was hospitalized for a very large umbilical hernia repair which was completed 02/22/2024 by. Patient reports hernia was present for at least 27 years.Patient's chart was reviewed forall available supporting documentation, laboratory results and radiographic examination. Measurable wound changes: increase wound measurement Patient accompanied by: self, ambulates Nutritional screen shows patient does take in three servings of protein per day. Patient does deny fever, chills, sweats, or other signs of infection. Prescribed antibiotics: none Today's reported Blood Sugar: Non applicable No results found for: HGBA1C Tobacco use: denied - never a smoker Contributing comorbid conditions: atrial fibrillation treated with Eliquis, COPD,BMI 41.93 Patient Active Problem List Diagnosis Pneumonia due to COVID-19 virus Diarrhea of infectious origin Longstanding persistent [place] Coronary artery disease involving red devil coronary artery Skin infection Morbid obesity due to excess calories [place] Strangulated hernia of abdominal wall Incarcerated ventral hernia COPD (chronic obstructive pulmonary disease) [place]) Hypertensive heart disease with heart failure [place] 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 Non-healing surgical wound Essential hypertension Encounter for therapeutic drug level monitoring Heart failure, unspecified [place] Past Medical History: Diagnosis Date Atrial fibrillation [place] Coronary artery disease GERD (gastroesophageal reflux disease) Hyperlipidemia Hypertension NSTEMI (non-ST elevated myocardial infarction) [place] Skin infection 02/20/2024 Past Surgical History: Procedure Laterality Date CARDIAC SURGERY stent DEBRIDEMENT AND EXCISION SKIN TO FASCIA N/A 02/22/2024 Performed by Brandon Rendon MD at [facility] REPAIR HERNIA UMBILICAL N/A 02/22/2024 Performed by Brandon Rendon MD at [facility] Current Outpatient Medications Medication Sig Dispense Refill acetaminophen (TYLENOL EXTRA STRENGTH) 500 mg tablet Take 2 tablets (1,000 mg total) by mouth every6 (six) hours as needed for pain. 30 tablet 0 metoprolol tartrate (LOPRESSOR) 25 mg tablet Take 1 tablet (25 mg total) by mouth in the morning and 1 tablet (25 mg total) before bedtime. No current facility-administered medications for this visit. Facility-Administered Medications Ordered in Other Visits Medication Dose Route Frequency Provider Last Rate Last Admin triamcinolone (KENALOG) 0.1 % cream 1 Application 1 Application topical PRNato Isatu Osorio DeisiDANIEL-CNP1 Application at 06/27/24 1551 No Known Allergies Social Drivers of Health Food Insecurity: No Food Insecurity (07/11/2024) Hunger Screening Food Insecurity - Worry: Never True Food Insecurity - Inability: Never True Housing Instability: Low Risk (02/20/2024) Housing Instability Housing Instability: No Transportation Needs: No Transportation Needs (02/20/2024) PRAPARE - Transportation Lack of Transportation (Medical): No Lack of Transportation (Non-Medical): No Utility Difficulties: Not At Risk (02/20/2024) [facility] Utilities Threatened with loss of utilities: No Interpersonal Safety: Not At Risk (02/20/2024) Humiliation, Afraid, Rape, and Kick questionnaire Fear of Current or Ex-Partner: No Emotionally Abused: No Physically Abused: No Sexually Abused: No Financial Resource Strain: Not on file Childcare: Unknown (12/04/2018) Childcare Childcare: Unknown Recent Concern: Childcare - High Risk (09/18/2018) Childcare Childcare: Unknown Employment: Unknown (12/04/2018) Employment Employment: Unknown Recent Concern: Employment - High Risk (09/18/2018) Employment Employment: Unknown Purpose - Life: Not on file Depression: Not at risk (02/20/2024) PHQ-2 PHQ-2 Score: 0 Alcohol Use: Not on file Tobacco Use: Low Risk (07/25/2024) Patient History Smoking Tobacco Use: Never Smokeless Tobacco Use: Never Passive Exposure: Not on file Social Connections: Not on file Physical Activity: Not on file Stress: Not on file The following portions of the patient's history were reviewed and updated as appropriate: allergies, current medications, past family history, past medical history, past social history, past surgicalhistory, problem list, and medication reconciliation was completed including current medication andpost discharge medication. Pain Scale:denies Review of Systems Constitutional: Negative. Negative for activity change, appetite change and fever. HENT: Positive for hearing loss. Negative for trouble swallowing. Respiratory: Positive for shortness of breath. Negative for cough and wheezing. Cardiovascular: Negative. Negative for chest pain, palpitations and leg swelling. Gastrointestinal: Positive for diarrhea. Negative for abdominal distention, nausea and vomiting. Genitourinary: Negative. Negative for dysuria, frequency and urgency. Musculoskeletal: Negative. Negative for neck stiffness. Skin: Positive for color change and wound. Neurological: Negative. Negative for dizziness, numbness and headaches. Objective: Vitals: 08/08/24 1041 BP: 155/79 Pulse: 111 Resp: 14 Temp: 36.7 C (98 F) Physical Exam Vitals and nursing note reviewed. Constitutional: Appearance: He is well-developed. HENT: Head: Normocephalic and atraumatic. Cardiovascular: Rate and Rhythm: Regular rhythm. Tachycardia present. Heart sounds: Normal heart sounds. No murmur heard. No gallop. Pulmonary: Effort: Pulmonary effort is normal. Breath sounds: Normal breath sounds. No wheezing. Abdominal: General: Bowel sounds are normal. Palpations: Abdomen is soft. Tenderness: There is no abdominal tenderness. Musculoskeletal: General: Normal range of motion. Cervical back: Normal range of motion. Skin: General: Skin is warm and dry. Findings: Rash (red, macular, dry) present. Neurological: Mental Status: He is alert and oriented to person, place, and time. Wound Assessment Wound 03/28/24 1 Other (comment) Abdomen Mid (Active) Wound Image 08/08/24 1050 Site Assessment Red;Moist 08/08/24 1050 Tanya-wound Assessment Blanchable erythema 08/08/24 1050 Wound Length (cm) 2.5 cm 08/08/24 1050 Wound Width (cm) 2.3 cm 08/08/24 1050 Wound Surface Area (cm^2) 5.75 cm^2 08/08/24 1050 Wound Depth (cm) 0.1 cm 08/08/24 1050 Wound Volume (cm^3) 0.575 cm^3 08/08/24 1050 Change in Wound Size % 95.69 08/08/24 1050 Drainage Amount None 08/08/24 1050 Treatments Cleansed with;Soap and water 08/08/24 1050 Debridement Performed? N 08/08/24 1100 Dressing Type Open to air 08/08/24 1100 Wound Bed Granulation (%) 100% 08/08/24 1050 Assessment/Plan/Education: 1. 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 STOP steroid ointment Patient instructed in surgical wound care to abdomen. 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 Follow up in wound clinic in 2 weeks Instructed to contact wound clinic, PCP or ER should symptoms worsen. The patient was taught to watch for S/S of infection (redness, pus, pain, increased swelling, chills or fever) and to call the PCP or wound care clinic if such occurs. The patient was educated on offloading the area by avoiding direct pressure to the wound bed. Education as well as the pathophysiology of the disease process was provided on infection, edema, necrotic tissue and its relationship tononhealing wounds. Education was also provided on treatment plan. Patient verbalized understanding. Total time spent was 19 minutes: Preparing to see the patient (e.g., review of tests) Obtaining and/or reviewing separately obtained history Performing a medically appropriate examination and/or evaluation Counseling and educating the patient/family/caregiver Ordering medications, tests, or procedures Documenting clinical information in the electronic or other health record - ARMANI MERIDA 08/08/24 11:37 AM Isatu Sargent APRN, [facility], CWS, [facility]: [phone] ARMANI Merida 03/28/24 1330 ARMANI Merida 04/25/24 1337 ARMANI Merida 05/09/24 1351 ARMANI Merida 05/30/24 1339 ARMANI Merida 06/11/24 1436 ARMANI Merida 06/27/24 1535 ARMANI Merida 07/11/24 1508 ARMANI Merida 07/25/24 1153 ARMANI Merida 08/08/24 1146 documented in this [facility]02-14-2025 Instructions* Patient Instructions* Brianne Singh RN - 08/08/2024 10:40 AM EST STOP steroid cream Wound Management Treatment Plan Wound Location(s): mid abdomen surgical site HOW TO CARE FOR YOUR WOUND The following should be performed once a day and as needed to keep clean and dry STEP 1: Cleanse wound with Soap and water, rinse well, and pat dry. Irrigate or rinse wound with NO IRRIGATION REQUIRED. STEP 2: Apply Vaseline to wound and dry areas around it (Make sure to do before work) ACTIVITY: Avoid direct pressure to wound(s) at all times NUTRITION: High protein diet SKIN CARE: keep wound covered at all times SWELLING CONTROL: ITEMS TO FOLLOW UP ON: None Length Width Depth Wound 03/28/24 1 Other (comment) Abdomen Mid-Wound Length (cm): 2.5 cm Wound 03/28/24 1 Other (comment) Abdomen Mid-Wound Width (cm): 2.3 cm Wound 03/28/24 1 Other (comment) Abdomen Mid-Wound Depth (cm): 0.1 cm Wound drainage Type Description none documented in this [facility]01-31-2025 History of Present illness Narrative* Isatu Sargent, [employer]AD[employer] WORKER-INSPECTOR AND HAND PACKAGER - 07/25/2024 11:00 AM EST Images from the original note were not included. Wound Care Progress Note Patient: Lino Peters Date of : 1950 Chief Compliant: abdominal wound follow up SUBJECTIVE/HPI: Lino is a 74 y.o. male who presents to [facility] for evaluation of 1 ulcer(s) on the mid abdomen. Patient established with wound clinic on 03/28/2024. Current daily woundcare includes: wash mild soap and water, cover with dry gauze and minimal adhesive, change daily. Daily application of triamcinolone 0.1% ointment to abdominal wall. Patient was hospitalized for a very large umbilical hernia repair which was completed 02/22/2024 by. Patient reports hernia was present for at least 27 years.Patient's chart was reviewed forall available supporting documentation, laboratory results and radiographic examination. Measurable wound changes: decrease wound measurement Patient accompanied by: self, ambulates Nutritional screen shows patient does take in three servings of protein per day. Patient does deny fever, chills, sweats, or other signs of infection. Prescribed antibiotics: none Today's reported Blood Sugar: Non applicable No results found for: HGBA1C Tobacco use: denied - never a smoker Contributing comorbid conditions: atrial fibrillation treated with Eliquis, COPD,BMI 41.93 Patient Active Problem List Diagnosis Pneumonia due to COVID-19 virus Diarrhea of infectious origin Longstanding persistent atrial fibrillation ([facility]) Coronary artery disease involving red devil coronary artery Skin infection Morbid obesity due to excess calories [place] Strangulated hernia of abdominal wall Incarcerated ventral hernia COPD (chronic obstructive pulmonary disease) [place]) Hypertensive heart disease with heart failure [place] 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 Non-healing surgical wound Essential hypertension Encounter for therapeutic drug level monitoring Past Medical History: Diagnosis Date Atrial fibrillation ([facility]) Coronary artery disease GERD (gastroesophageal reflux disease) Hyperlipidemia Hypertension NSTEMI (non-ST elevated myocardial infarction) [place] Skin infection 02/20/2024 Past Surgical History: Procedure Laterality Date CARDIAC SURGERY stent DEBRIDEMENT AND EXCISION SKIN TO FASCIA N/A 02/22/2024 Performed by Brandon Rendon MD at [facility] REPAIR HERNIA UMBILICAL N/A 02/22/2024 Performed by Brandon Rendon MD at [facility] Current Outpatient Medications Medication Sig Dispense Refill acetaminophen (TYLENOL EXTRA STRENGTH) 500 mg tablet Take 2 tablets (1,000 mg total) by mouth every6 (six) hours as needed for pain. 30 tablet 0 metoprolol tartrate (LOPRESSOR) 25 mg tablet Take 1 tablet (25 mg total) by mouth in the morning and 1 tablet (25 mg total) before bedtime. triamcinolone (KENALOG) 0.1 % ointment Apply 1 Application topically in the morning and 1 Application before bedtime. Do all this for 14 days. Apply thin layer to red, itching areas of skin of surrounding wound bed to abdomen. 30 g 0 No current facility-administered medications for this visit. Facility-Administered Medications Ordered in Other Visits Medication Dose Route Frequency Provider Last Rate Last Admin triamcinolone (KENALOG) 0.1 % cream 1 Application 1 Application topical PRNato Isatu Osorio DeisiDANIEL-CNP1 Application at 06/27/24 1551 No Known Allergies Social Drivers of Health Food Insecurity: No Food Insecurity (07/11/2024) Hunger Screening Food Insecurity - Worry: Never True Food Insecurity - Inability: Never True Housing Instability: Low Risk (02/20/2024) Housing Instability Housing Instability: No Transportation Needs: No Transportation Needs (02/20/2024) PRAPARE - Transportation Lack of Transportation (Medical): No Lack of Transportation (Non-Medical): No Utility Difficulties: Not At Risk (02/20/2024) [facility] Utilities Threatened with loss of utilities: No Interpersonal Safety: Not At Risk (02/20/2024) Humiliation, Afraid, Rape, and Kick questionnaire Fear of Current or Ex-Partner: No Emotionally Abused: No Physically Abused: No Sexually Abused: No Financial Resource Strain: Not on file Childcare: Unknown (12/04/2018) Childcare Childcare: Unknown Recent Concern: Childcare - High Risk (09/18/2018) Childcare Childcare: Unknown Employment: Unknown (12/04/2018) Employment Employment: Unknown Recent Concern: Employment - High Risk (09/18/2018) Employment Employment: Unknown Purpose - Life: Not on file Depression: Not at risk (02/20/2024) PHQ-2 PHQ-2 Score: 0 Alcohol Use: Not on file Tobacco Use: Low Risk (07/11/2024) Patient History Smoking Tobacco Use: Never Smokeless Tobacco Use: Never Passive Exposure: Not on file Social Connections: Not on file Physical Activity: Not on file Stress: Not on file The following portions of the patient's history were reviewed and updated as appropriate: allergies, current medications, past family history, past medical history, past social history, past surgicalhistory, problem list, and medication reconciliation was completed including current medication andpost discharge medication. Pain Scale:denies Pain Scale 0/10: 0 Review of Systems Constitutional: Negative. Negative for activity change, appetite change and fever. HENT: Positive for hearing loss. Negative for trouble swallowing. Respiratory: Positive for shortness of breath. Negative for cough and wheezing. Cardiovascular: Negative. Negative for chest pain, palpitations and leg swelling. Gastrointestinal: Positive for diarrhea. Negative for abdominal distention, nausea and vomiting. Genitourinary: Negative. Negative for dysuria, frequency and urgency. Musculoskeletal: Negative. Negative for neck stiffness. Skin: Positive for color change and wound. Neurological: Negative. Negative for dizziness, numbness and headaches. Objective: Vitals: 07/25/24 1037 BP: (!) 134/91 Pulse: (!) 128 Temp: 36.8 C (98.2 F) Physical Exam Vitals and nursing note reviewed. Constitutional: Appearance: He is well-developed. HENT: Head: Normocephalic and atraumatic. Cardiovascular: Rate and Rhythm: Regular rhythm. Tachycardia present. Heart sounds: Normal heart sounds. No murmur heard. No gallop. Pulmonary: Effort: Pulmonary effort is normal. Breath sounds: Normal breath sounds. No wheezing. Abdominal: General: Bowel sounds are normal. Palpations: Abdomen is soft. Tenderness: There is no abdominal tenderness. Musculoskeletal: General: Normal range of motion. Cervical back: Normal range of motion. Skin: General: Skin is warm and dry. Findings: Rash (red, macular, dry) present. Neurological: Mental Status: He is alert and oriented to person, place, and time. Wound Assessment Wound 03/28/24 1 Other (comment) Abdomen Mid (Active) Wound Image 07/25/24 1045 Site Assessment Moist;Red 07/25/24 1045 Tanya-wound Assessment Red;Dry;Excoriated 07/25/24 1045 Wound Length (cm) 1.3 cm 07/25/24 1045 Wound Width (cm) 1.5 cm 07/25/24 1045 Wound Surface Area (cm^2) 1.95 cm^2 07/25/24 1045 Wound Depth (cm) 0.1 cm 07/25/24 1045 Wound Volume (cm^3) 0.195 cm^3 07/25/24 1045 Change in Wound Size % 98.54 07/25/24 1045 Drainage Description Serosanguineous;Yellow 07/25/24 1045 Drainage Amount Scant 07/25/24 1045 Treatments Cleansed with;Soap and water;Soak with;Vashe/Hypochlorous Acid 07/25/24 1045 Debridement Performed? N 07/25/24 1103 Dressing Changed New 07/25/24 1103 Dressing Status Clean;Intact;Dry 07/25/24 1103 Wound Bed Granulation (%) 100% 07/25/24 1045 Assessment/Plan/Education: 1. Irritant contact dermatitis due to other chemical products 2. Non-healing surgical wound, subsequent encounter 3. H/O umbilical hernia repair Wash mild soap and water Cover with dry gauze Secure with a small band aid Change daily Triamcinolone 0.1% ointment, apply twice daily Patient instructed in surgical wound care to abdomen. 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 Follow up in wound clinic in 2 weeks Instructed to contact wound clinic, PCP or ER should symptoms worsen. The patient was taught to watch for S/S of infection (redness, pus, pain, increased swelling, chills or fever) and to call the PCP or wound care clinic if such occurs. The patient was educated on offloading the area by avoiding direct pressure to the wound bed. Education as well as the pathophysiology of the disease process was provided on infection, edema, necrotic tissue and its relationship tononhealing wounds. Education was also provided on treatment plan. Patient verbalized understanding. Total time spent was 19 minutes: Preparing to see the patient (e.g., review of tests) Obtaining and/or reviewing separately obtained history Performing a medically appropriate examination and/or evaluation Counseling and educating the patient/family/caregiver Ordering medications, tests, or procedures Documenting clinical information in the electronic or other health record - ARMANI MERIDA 07/25/24 11:50 AM Isatu Sargent APRN, INSPECTOR AND HAND PACKAGER, CWS, FE [facility] [facility]: [phone] Isatu Sargent APRN-JOSE ANTONIO 03/28/24 1330 ARMANI Merida 04/25/24 1337 Isatu Sargent APRN-JOSE ANTONIO 05/09/24 1351 Isatu Sargent APRN-JOSE ANTONIO 05/30/24 1339 Isatu Sargent APRN-JOSE ANTONIO 06/11/24 1436 Isatu Sargent APRN-JOSE ANTONIO 06/27/24 1535 Isatu Sargent APRN-JOSE ANTONIO 07/11/24 1508 ARMANI Merida 07/25/24 1153 [facility] Instructions* Patient Instructions* Brianne Singh RN - 07/25/2024 11:00 AM EST 07/11/24: quill picking machine operator your prescription for steroid cream at your pharmacy today. Wound Management Treatment Plan Wound Location(s): mid abdomen surgical site HOW TO CARE FOR YOUR WOUND The following should be performed once a day and as needed to keep clean and dry STEP 1: Cleanse wound with Soap and water, rinse well, and pat dry. Irrigate or rinse wound with NO IRRIGATION REQUIRED. STEP 2: Apply steroid cream to surrounding wound bed skin to abdomen twice a day. Apply to any intact red, itching areas of skin to abdomen. Do not apply to wound bed. STEP 3: Apply small fabric Band-Aid to wound bed Change wound dressing everyday. ACTIVITY: Avoid direct pressure to wound(s) at all times NUTRITION: High protein diet SKIN CARE: keep wound covered at all times SWELLING CONTROL: ITEMS TO FOLLOW UP ON: None Length Width Depth Wound 03/28/24 1 Other (comment) Abdomen Mid-Wound Length (cm): 1.3 cm Wound 03/28/24 1 Other (comment) Abdomen Mid-Wound Width (cm): 1.5 cm Wound 03/28/24 1 Other (comment) Abdomen Mid-Wound Depth (cm): 0.1 cm Wound drainage Type Description scant serosang Serous, yellow [facility] History of Present illness Narrative* ARMANI Merida - 07/11/2024 2:00 PM EST Images from the original note were not included. Wound Care Progress Note Patient: Lino Peters Date of : 1950 Chief Compliant: abdominal wound follow up SUBJECTIVE/HPI: Lino is a 74 y.o. male who presents to [facility] for evaluation of 1 ulcer(s) on the mid abdomen. Patient established with wound clinic on 03/28/2024. Current daily woundcare includes: wash mild soap and water, cover with dry gauze and minimal adhesive, change daily. Presents with a large tanya wound erythematous, pruritic and burning rash. No relief in rash with prescribed calazime lotion. Patient was hospitalized for a very large umbilical hernia repair which was completed 02/22/2024 by. patient reports hernia was present for at least 27 years.Patient's chart was reviewed forall available supporting documentation, laboratory results and radiographic examination. Measurable wound changes: decrease wound measurement Patient accompanied by: self, ambulates Nutritional screen shows patient does take in three servings of protein per day. Patient does deny fever, chills, sweats, or other signs of infection. Prescribed antibiotics: none Today's reported Blood Sugar: Non applicable No results found for: HGBA1C Tobacco use: denied - never a smoker Contributing comorbid conditions: atrial fibrillation treated with Eliquis, COPD,BMI 41.93 Patient Active Problem List Diagnosis Pneumonia due to COVID-19 virus Diarrhea of infectious origin Longstanding persistent atrial fibrillation ([facility]) Coronary artery disease involving red devil coronary artery Skin infection Morbid obesity due to excess calories ([facility]) Strangulated hernia of abdominal wall Incarcerated ventral hernia COPD [place]chronic obstructive pulmonary disease) [place] Hypertensive heart disease with heart failure [place] 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 Non-healing surgical wound Essential hypertension Encounter for therapeutic drug level monitoring Past Medical History: Diagnosis Date Atrial fibrillation ([facility]) Coronary artery disease GERD (gastroesophageal reflux disease) Hyperlipidemia Hypertension NSTEMI (non-ST elevated myocardial infarction) [place] Skin infection 02/20/2024 Past Surgical History: Procedure Laterality Date CARDIAC SURGERY stent DEBRIDEMENT AND EXCISION SKIN TO FASCIA N/A 02/22/2024 Performed by Brandon Rendon MD at [facility] REPAIR HERNIA UMBILICAL N/A 02/22/2024 Performed by Brandon Rendon MD at [facility] Current Outpatient Medications Medication Sig Dispense Refill acetaminophen (TYLENOL EXTRA STRENGTH) 500 mg tablet Take 2 tablets (1,000 mg total) by mouth every6 (six) hours as needed for pain. 30 tablet 0 metoprolol tartrate (LOPRESSOR) 25 mg tablet Take 1 tablet (25 mg total) by mouth in the morning and 1 tablet (25 mg total) before bedtime. triamcinolone (KENALOG) 0.1 % ointment Apply 1 Application topically in the morning and 1 Application before bedtime. Do all this for 14 days. Apply thin layer to red, itching areas of skin of surrounding wound bed to abdomen. 30 g 0 No current facility-administered medications for this visit. Facility-Administered Medications Ordered in Other Visits Medication Dose Route Frequency Provider Last Rate Last Admin triamcinolone (KENALOG) 0.1 % cream 1 Application 1 Application topical PRN Isatu Sargent APRN-CNP1 Application at 06/27/24 1551 No Known Allergies Social Drivers of Health Food Insecurity: No Food Insecurity (07/11/2024) Hunger Screening Food Insecurity - Worry: Never True Food Insecurity - Inability: Never True Housing Instability: Low Risk (02/20/2024) Housing Instability Housing Instability: No Transportation Needs: No Transportation Needs (02/20/2024) PRAPARE - Transportation Lack of Transportation (Medical): No Lack of Transportation (Non-Medical): No Utility Difficulties: Not At Risk (02/20/2024) [facility] Utilities Threatened with loss of utilities: No Interpersonal Safety: Not At Risk (02/20/2024) Humiliation, Afraid, Rape, and Kick questionnaire Fear of Current or Ex-Partner: No Emotionally Abused: No Physically Abused: No Sexually Abused: No Financial Resource Strain: Not on file Childcare: Unknown (12/04/2018) Childcare Childcare: Unknown Recent Concern: Childcare - High Risk (09/18/2018) Childcare Childcare: Unknown Employment: Unknown (12/04/2018) Employment Employment: Unknown Recent Concern: Employment - High Risk (09/18/2018) Employment Employment: Unknown Purpose - Life: Not on file Depression: Not at risk (02/20/2024) PHQ-2 PHQ-2 Score: 0 Alcohol Use: Not on file Tobacco Use: Low Risk (06/27/2024) Patient History Smoking Tobacco Use: Never Smokeless Tobacco Use: Never Passive Exposure: Not on file Social Connections: Not on file Physical Activity: Not on file Stress: Not on file The following portions of the patient's history were reviewed and updated as appropriate: allergies, current medications, past family history, past medical history, past social history, past surgicalhistory, problem list, and medication reconciliation was completed including current medication andpost discharge medication. Pain Scale:denies Review of Systems Constitutional: Negative. Negative for activity change, appetite change and fever. HENT: Positive for hearing loss. Negative for trouble swallowing. Respiratory: Positive for shortness of breath. Negative for cough and wheezing. Cardiovascular: Negative. Negative for chest pain, palpitations and leg swelling. Gastrointestinal: Positive for diarrhea. Negative for abdominal distention, nausea and vomiting. Genitourinary: Negative. Negative for dysuria, frequency and urgency. Musculoskeletal: Negative. Negative for neck stiffness. Skin: Positive for color change and wound. Neurological: Negative. Negative for dizziness, numbness and headaches. Objective: Vitals: 07/11/24 1415 BP: (!) 155/94 Pulse: 100 Resp: 16 Temp: 37 C (98.6 F) Physical Exam Vitals and nursing note reviewed. Constitutional: Appearance: He is well-developed. HENT: Head: Normocephalic and atraumatic. Cardiovascular: Rate and Rhythm: Regular rhythm. Tachycardia present. Heart sounds: Normal heart sounds. No murmur heard. No gallop. Pulmonary: Effort: Pulmonary effort is normal. Breath sounds: Normal breath sounds. No wheezing. Abdominal: General: Bowel sounds are normal. Palpations: Abdomen is soft. Tenderness: There is no abdominal tenderness. Musculoskeletal: General: Normal range of motion. Cervical back: Normal range of motion. Skin: General: Skin is warm and dry. Neurological: Mental Status: He is alert and oriented to person, place, and time. Wound Assessment Wound 03/28/24 1 Other (comment) Abdomen Mid (Active) Wound Image 07/11/24 142 Site Assessment Red;Moist;Hypergranulation 07/11/24 142 Tanya-wound Assessment [place];Blanchable erythema 07/11/24 1423 Wound Length (cm) 2.8 cm 07/11/24 142 Wound Width (cm) 2.4 cm 07/11/24 1423 Wound Surface Area (cm^2) 6.72 cm^2 07/11/24 1423 Wound Depth (cm) 0 cm 01/17/25 1423 Wound Volume (cm^3) 0 cm^3 07/11/241422 Change in Wound Size % 94.96 07/11/241422 Drainage Description Serous;Yellow 07/11/241422 Drainage Amount Scant 07/11/241422 Treatments Cleansed with;Saline;Soak with;Vashe/Hypochlorous Acid 07/11/241422 Debridement Performed? N 07/11/241422 Dressing Type Gauze;Other (Comment) 07/11/241422 Dressing Changed New 07/11/241422 Dressing Status Clean;Dry;Intact 07/11/241422 Wound Bed Granulation (%) 100% 07/11/241422 Assessment/Plan/Education: 1. Irritant contact dermatitis due to other chemical products 2. Non-healing surgical wound, subsequent encounter 3. H/O umbilical hernia repair Wash mild soap and water Cover with dry gauze Secure with a small amount of medi pore tape Change daily Triamcinolone 0.1% ointment, apply twice daily Patient instructed in surgical wound care to abdomen. 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 Follow up in wound clinic in 2 weeks Instructed to contact wound clinic, PCP or ER should symptoms worsen. The patient was taught to watch for S/S of infection (redness, pus, pain, increased swelling, chills or fever) and to call the PCP or wound care clinic if such occurs. The patient was educated on offloading the area by avoiding direct pressure to the wound bed. Education as well as the pathophysiology of the disease process was provided on infection, edema, necrotic tissue and its relationship tononhealing wounds. Education was also provided on treatment plan. Patient verbalized understanding. Total time spent was 20 minutes: Preparing to see the patient (e.g., review of tests) Obtaining and/or reviewing separately obtained history Performing a medically appropriate examination and/or evaluation Counseling and educating the patient/family/caregiver Ordering medications, tests, or procedures Documenting clinical information in the electronic or other health record - ISATU SARGENT APRN-JOSE ANTONIO 07/11/24 2:33 PM Isatu Sargent APRN, INSPECTOR AND HAND PACKAGER, CWS, FE [facility] [facility]: [phone] Isatu Sargent APRN-JOSE ANTONIO 03/28/24 1330 Isatu Sargent, SQUADRON WORKER-INSPECTOR AND HAND PACKAGER 04/25/24 1337 Isatu Sargent, SQUADRON WORKER-INSPECTOR AND HAND PACKAGER 05/09/24 1351 Isatu Sargent, SQUADRON WORKER-INSPECTOR AND HAND PACKAGER 05/30/24 1339 Isatu Sargent, SQUADRON WORKER-INSPECTOR AND HAND PACKAGER 06/11/24 1436 Isatu Sargent, SQUADRON WORKER-INSPECTOR AND HAND PACKAGER 06/27/24 1535 Isatu Sargent, SQUADRON WORKER-INSPECTOR AND HAND PACKAGER 07/11/24 1508 documented in this encounterJ.[facility]. [facility]01-17-[facility]25 Instructions* Patient Instructions* Kandy Harris RN - 07/11/2024 2:00 PM EST 07/11/24: quill picking machine operator your prescription for steroid cream at your pharmacy today. Wound Management Treatment Plan Wound Location(s): mid abdomen surgical site HOW TO CARE FOR YOUR WOUND The following should be performed once a day and as needed to keep clean and dry STEP 1: Cleanse wound with Soap and water, rinse well, and pat dry. Irrigate or rinse wound with NO IRRIGATION REQUIRED. STEP 2: Apply steroid cream to surrounding wound bed skin to abdomen twice a day. Apply to any intact red, itching areas of skin to abdomen. Do not apply to wound bed. STEP 3: Apply either half of an ABD pad or a gauze pad to open areas of wound, secure with a single piece of tape only. Change wound dressing everyday. ACTIVITY: Avoid direct pressure to wound(s) at all times NUTRITION: High protein diet SKIN CARE: keep wound covered at all times SWELLING CONTROL: ITEMS TO FOLLOW UP ON: None Length Width Depth Wound 03/28/24 1 Other (comment) Abdomen Mid-Wound Length (cm): 2.8 cm Wound 03/28/24 1 Other (comment) Abdomen Mid-Wound Width (cm): 2.4 cm Wound 03/28/24 1 Other (comment) Abdomen Mid-Wound Depth (cm): 0 cm Wound drainage Type Description small serosang Serous, yellow [facility]Hol[facility] [id number] History of Present illness Narrative* Isatu Sargent, SQUADRON WORKER-INSPECTOR AND HAND PACKAGER - 06/27/2024 2:40 PM EST Images from the original note were not included. Wound Care Progress Note Patient: Lino Peters Date of : 1950 Chief Compliant: abdominal wound follow up SUBJECTIVE/HPI: Lino is a 74 y.o. male who presents to [facility] for evaluation of 1 ulcer(s) on the mid abdomen. Patient established with wound clinic on 03/28/2024. Current daily woundcare includes: Vaseline and an ABD dressing ordered. Patient presents with a foam dressing. Dressing is changed three times weekly per patient. Patient has returned to work. Presents with a large tanya wound erythematous, highly pruritic rash. Patient was hospitalized for a very large umbilical hernia repair which was completed 02/22/2024 by. patient reports hernia was present for at least 27 years.Patient's chart was reviewed forall available supporting documentation, laboratory results and radiographic examination. Measurable wound changes: Increase wound measurement Patient accompanied by: self, ambulates Nutritional screen shows patient does take in three servings of protein per day. Patient does deny fever, chills, sweats, or other signs of infection. Prescribed antibiotics: none Today's reported Blood Sugar: Non applicable No results found for: HGBA1C Tobacco use: denied - never a smoker Contributing comorbid conditions: atrial fibrillation treated with Eliquis, COPD,BMI 41.93 Patient Active Problem List Diagnosis Pneumonia due to COVID-19 virus Diarrhea of infectious origin Longstanding persistent atrial fibrillation ([facility]) Coronary artery disease involving red devil coronary artery Skin infection Morbid obesity due to excess calories ([facility]) Strangulated hernia of abdominal wall Incarcerated ventral hernia COPD (chronic obstructive pulmonary disease) [place] Hypertensive heart disease with heart failure [place] 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 Non-healing surgical wound Essential hypertension Encounter for therapeutic drug level monitoring Past Medical History: Diagnosis Date Atrial fibrillation ([facility]) Coronary artery disease GERD (gastroesophageal reflux disease) Hyperlipidemia Hypertension NSTEMI (non-ST elevated myocardial infarction) (CMS-HCC) Skin infection 02/20/2024 Past Surgical History: Procedure Laterality Date CARDIAC SURGERY stent DEBRIDEMENT AND EXCISION SKIN TO FASCIA N/A 02/22/2024 Performed by Brandon Rendon MD at [facility] REPAIR HERNIA UMBILICAL N/A 02/22/2024 Performed by Brandon Rendon MD at [facility] Current Outpatient Medications Medication Sig Dispense Refill acetaminophen (TYLENOL EXTRA STRENGTH) 500 mg tablet Take 2 tablets (1,000 mg total) by mouth every6 (six) hours as needed for pain. 30 tablet 0 metoprolol tartrate (LOPRESSOR) 25 mg tablet Take 1 tablet (25 mg total) by mouth in the morning and 1 tablet (25 mg total) before bedtime. No current facility-administered medications for this visit. No Known Allergies Social Drivers of Health Food Insecurity: No Food Insecurity (06/27/2024) Hunger Screening Food Insecurity - Worry: Never True Food Insecurity - Inability: Never True Housing Instability: Low Risk (02/20/2024) Housing Instability Housing Instability: No Transportation Needs: No Transportation Needs (02/20/2024) PRAPARE - Transportation Lack of Transportation (Medical): No Lack of Transportation (Non-Medical): No Utility Difficulties: Not At Risk (02/20/2024) [facility] Utilities Threatened with loss of utilities: No Interpersonal Safety: Not At Risk (02/20/2024) Humiliation, Afraid, Rape, and Kick questionnaire Fear of Current or Ex-Partner: No Emotionally Abused: No Physically Abused: No Sexually Abused: No Financial Resource Strain: Not on file Childcare: Unknown (12/04/2018) Childcare Childcare: Unknown Recent Concern: Childcare - High Risk (09/18/2018) Childcare Childcare: Unknown Employment: Unknown (12/04/2018) Employment Employment: Unknown Recent Concern: Employment - High Risk (09/18/2018) Employment Employment: Unknown Purpose - Life: Not on file Depression: Not at risk (02/20/2024) PHQ-2 PHQ-2 Score: 0 Alcohol Use: Not on file Tobacco Use: Low Risk (06/27/2024) Patient History Smoking Tobacco Use: Never Smokeless Tobacco Use: Never Passive Exposure: Not on file Social Connections: Not on file Physical Activity: Not on file Stress: Not on file The following portions of the patient's history were reviewed and updated as appropriate: allergies, current medications, past family history, past medical history, past social history, past surgicalhistory, problem list, and medication reconciliation was completed including current medication andpost discharge medication. Pain Scale:denies Pain Scale 0/10: 0 Review of Systems Constitutional: Negative. Negative for activity change, appetite change and fever. HENT: Positive for hearing loss. Negative for trouble swallowing. Respiratory: Positive for shortness of breath. Negative for cough and wheezing. Cardiovascular: Negative. Negative for chest pain, palpitations and leg swelling. Gastrointestinal: Positive for diarrhea. Negative for abdominal distention, nausea and vomiting. Genitourinary: Negative. Negative for dysuria, frequency and urgency. Musculoskeletal: Negative. Negative for neck stiffness. Skin: Positive for color change and wound. Neurological: Negative. Negative for dizziness, numbness and headaches. Objective: Vitals: 06/27/24 1440 BP: 146/81 Pulse: 100 Temp: 36.9 C (98.4 F) Physical Exam Vitals and nursing note reviewed. Constitutional: Appearance: He is well-developed. HENT: Head: Normocephalic and atraumatic. Cardiovascular: Rate and Rhythm: Regular rhythm. Tachycardia present. Heart sounds: Normal heart sounds. No murmur heard. No gallop. Pulmonary: Effort: Pulmonary effort is normal. Breath sounds: Normal breath sounds. No wheezing. Abdominal: General: Bowel sounds are normal. Palpations: Abdomen is soft. Tenderness: There is no abdominal tenderness. Musculoskeletal: General: Normal range of motion. Cervical back: Normal range of motion. Skin: General: Skin is warm and dry. Neurological: Mental Status: He is alert and oriented to person, place, and time. Wound Assessment Wound 03/28/24 1 Other (comment) Abdomen Mid (Active) Wound Image 06/27/24 1445 Site Assessment Red;Moist;Hypergranulation 06/27/24 144 Tanya-wound Assessment [place];Blanchable erythema 06/27/24 1445 Wound Length (cm) 5 cm 06/27/24 1445 Wound Width (cm) 5.5 cm 06/27/24 1445 Wound Surface Area (cm^2) 27.5 cm^2 06/27/24 1445 Change in Wound Size % 79.37 06/27/24 1445 Drainage Description Serosanguineous;Yellow;[place] 06/27/24 1445 Drainage Amount Scant 06/27/24 1445 Treatments Cleansed with;Wound cleanser;Soak with;Vashe/Hypochlorous Acid 06/27/24 1445 Debridement Performed? N 06/27/24 1445 Dressing Type Gauze 06/27/24 1445 Dressing Changed New 06/27/24 1445 Dressing Status Clean;Dry;Intact 06/27/24 144 Wound Bed Granulation (%) 100% 06/27/24 1445 Assessment/Plan/Education: 1. Non-healing surgical wound, subsequent encounter 2. H/O umbilical hernia repair 3. Irritant contact dermatitis due to other chemical products Wash mild soap and water Cover with dry gauze Secure with a small amount of medi pore tape Change daily Triamcinolone 0.1% ointment applied in wound clinic Patient may apply Calmoseptine to tanya wound as needed for itching. Patient instructed in surgical wound care to abdomen. Short term goal: medical compliance FDC goal: wound closure Patient verbalize understanding of treatment regimen and the importance of adherence. Follow up in wound clinic in 2 weeks Instructed to contact wound clinic, PCP or ER should symptoms worsen. The patient was taught to watch for S/S of infection (redness, pus, pain, increased swelling, chills or fever) and to call the PCP or wound care clinic if such occurs. The patient was educated on offloading the area by avoiding direct pressure to the wound bed. Education as well as the pathophysiology of the disease process was provided on infection, edema, necrotic tissue and its relationship tononhealing wounds. Education was also provided on treatment plan. Patient verbalized understanding. Total time spent was 15 minutes: Preparing to see the patient (e.g., review of tests) Obtaining and/or reviewing separately obtained history Performing a medically appropriate examination and/or evaluation Counseling and educating the patient/family/caregiver Ordering medications, tests, or procedures Documenting clinical information in the electronic or other health record - ARMANI MERIDA 06/27/24 3:29 PM Isatu Sargent APRN, INSPECTOR AND HAND PACKAGER, CWS, [employer] [facility]: [phone] Isatu Sargent APRN-JOSE ANTONIO 03/28/24 1330 Isatu Sargent, S[employer]ADRON WORKER-INSPECTOR AND HAND PACKAGER 04/25/24 1337 Isatu Sargent, SQUADRON WORKER-INSPECTOR AND HAND PACKAGER 05/09/24 1351 Isatu Sargent, SQUADRON WORKER-INSPECTOR AND HAND PACKAGER 05/30/24 1339 Isatu Sargent, SQUADRON WORKER-INSPECTOR AND HAND PACKAGER 06/11/24 1436 Isatu Sargent, SQUADRON WORKER-INSPECTOR AND HAND PACKAGER 06/27/24 1535 documented in this [facility]01-03-2025 Instructions* Patient Instructions* Tereso Wayne RN - 06/27/2024 2:40 PM EST Wound Management Treatment Plan Wound Location(s): mid abdomen surgical site HOW TO CARE FOR YOUR WOUND The following should be performed daily and as needed to keep clean and dry STEP 1: Cleanse wound with Soap and water, rinse well, and pat dry. Irrigate or rinse wound with NO IRRIGATION REQUIRED. STEP 2: Soak wound with NO SOAK REQUIRED. STEP 3: Apply either half of an ABD pad or a gauze pad to open areas of wound, secure with a piece of tape STEP 4: Apply a thin layer of calamine ointment to irritated skin around wound and the area where tape is. If possible try to rotate area where tape is on your skin. ACTIVITY: Avoid direct pressure to wound(s) at all times NUTRITION: High protein diet SKIN CARE: keep wound covered at all times SWELLING CONTROL: ITEMS TO FOLLOW UP ON: None Length Width Depth Wound drainage Type Description small serosang Serous, yellow documented in this [facility]01-03-2025 Miscellaneous Notes* Addendum Note - Tereso Wayne RN - 06/27/2024 2:40 PM ESTAddended by: TERESO WAYNE on: 06/27/2024 03:55 PM Modules accepted: [facility]* Addendum Note - Tereso Wayne RN - 06/27/2024 2:40 PM ESTAddended by: TERESO WAYNE on: 06/27/2024 03:55 PM Modules accepted: Orders [facility]12[facility] History of Present illness Narrative* Isatu Sargent, SQUADRON WORKER-INSPECTOR AND HAND PACKAGER - 05/30/2024 1:00 PM EST Images from the original note were not included. Wound Care Progress Note Patient: Lino Peters Date of : 1950 Chief Compliant: abdominal wound follow up SUBJECTIVE/HPI: Lino is a 73 y.o. male who presents to [facility] for evaluation of 1 ulcer(s) on the mid abdomen. Patient established with wound clinic on 03/28/2024. Current daily woundcare includes: Collagen covered with foam dressing. Dressing is changed three times weekly per homecare nurses. Patient is requesting to return to work. Patient was hospitalized for a very large umbilical hernia repair which was completed 02/22/2024 by. patient reports hernia was present for at least 27 years.Patient's chart was reviewed forall available supporting documentation, laboratory results and radiographic examination. Measurable wound changes: decrease wound measurement Patient accompanied by: self, ambulates Nutritional screen shows patient does take in three servings of protein per day. Patient does deny fever, chills, sweats, or other signs of infection. Prescribed antibiotics: none Today's reported Blood Sugar: Non applicable No results found for: HGBA1C Tobacco use: denied - never a smoker Contributing comorbid conditions: atrial fibrillation treated with Eliquis, COPD,BMI 41.93 Patient Active Problem List Diagnosis Pneumonia due to COVID-19 virus Diarrhea of infectious origin Longstanding persistent atrial fibrillation ([facility]) Coronary artery disease involving red devil coronary artery Skin infection Morbid obesity due to excess calories ([facility]) Strangulated hernia of abdominal wall Incarcerated ventral hernia COPD (chronic obstructive pulmonary disease) ([facility]) Hypertensive heart disease with heart failure ([facility])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 Non-healing surgical wound Essential hypertension Encounter for therapeutic drug level monitoring Past Medical History: Diagnosis Date Atrial [place] Coronary artery disease GERD (gastroesophageal reflux disease) Hyperlipidemia Hypertension NSTEMI (non-ST elevated myocardial infarction) [place] Skin infection 02/20/2024 Past Surgical History: Procedure Laterality Date CARDIAC SURGERY stent DEBRIDEMENT AND EXCISION SKIN TO FASCIA N/A 02/22/2024 Performed by Brandon Rendon MD at [facility] REPAIR HERNIA UMBILICAL N/A 02/22/2024 Performed by Brandon Rendon MD at [facility] Current Outpatient Medications Medication Sig Dispense Refill acetaminophen (TYLENOL EXTRA STRENGTH) 500 mg tablet Take 2 tablets (1,000 mg total) by mouth every6 (six) hours as needed for pain. 30 tablet 0 metoprolol tartrate (LOPRESSOR) 25 mg tablet Take 1 tablet (25 mg total) by mouth in the morning and 1 tablet (25 mg total) before bedtime. No current facility-administered medications for this visit. No Known Allergies The following portions of the patient's history were reviewed and updated as appropriate: allergies, current medications, past family history, past medical history, past social history, past surgicalhistory, problem list, and medication reconciliation was completed including current medication andpost discharge medication. Pain Scale:denies Review of Systems Constitutional: Negative. Negative for activity change, appetite change and fever. HENT: Positive for hearing loss. Negative for trouble swallowing. Respiratory: Positive for shortness of breath. Negative for cough and wheezing. Cardiovascular: Negative. Negative for chest pain, palpitations and leg swelling. Gastrointestinal: Positive for diarrhea. Negative for abdominal distention, nausea and vomiting. Genitourinary: Negative. Negative for dysuria, frequency and urgency. Musculoskeletal: Negative. Negative for neck stiffness. Skin: Positive for color change and wound. Neurological: Negative. Negative for dizziness, numbness and headaches. Objective: Vitals: 05/30/24 1310 BP: 146/90 Pulse: 118 Resp: 16 Temp: 37.1 C (98.7 F) Physical Exam Vitals and nursing note reviewed. Constitutional: Appearance: He is well-developed. HENT: Head: Normocephalic and atraumatic. Cardiovascular: Rate and Rhythm: Regular rhythm. Tachycardia present. Heart sounds: Normal heart sounds. No murmur heard. No gallop. Pulmonary: Effort: Pulmonary effort is normal. Breath sounds: Normal breath sounds. No wheezing. Abdominal: General: Bowel sounds are decreased. Palpations: Abdomen is soft. Tenderness: There is no abdominal tenderness. Musculoskeletal: General: Normal range of motion. Cervical back: Normal range of motion. Skin: General: Skin is warm and dry. Neurological: Mental Status: He is alert and oriented to person, place, and time. Wound Assessment Wound 03/28/24 1 Other (comment) Abdomen Mid (Active) Wound Image 05/30/241316 Site Assessment Red;Moist 05/30/241316 Tanya-wound Assessment [place] 05/30/241316 Wound Length (cm) 6 cm 05/30/241316 Wound Width (cm) 5.2 cm 05/30/241316 Wound Surface Area (cm^2) 31.2 cm^2 05/30/241316 Wound Depth (cm) 0.1 cm 05/30/241316 Wound Volume (cm^3) 3.12 cm^3 05/30/241316 Change in Wound Size % 76.6 05/30/24 131 Drainage Description Serous;Yellow 05/30/241316 Drainage Amount Small 05/30/241316 Treatments Cleansed with;Wound cleanser;Soak with;Vashe/Hypochlorous Acid 05/30/241316 Debridement Performed? N 05/30/24 1336 Dressing Type Xeroform;Abdominal dressing 05/30/241335 Dressing Changed Changed 05/30/241335 Dressing Status Clean;Dry;Intact 05/30/241335 Wound Bed Granulation (%) 100% 05/30/24 1317 Assessment/Plan/Education: 1. Non-healing surgical wound, subsequent encounter 2. H/O umbilical hernia repair Wash mild soap and water Cover with Xeroform. Cover with ABD or other dressing of comfort, Changed 3 times weekly per home care nurses Communications sent to home care nurse. May return to work Patient instructed in surgical wound care to abdomen. 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 Follow up in wound clinic in 06/11/2024 Instructed to contact wound clinic, PCP or ER should symptoms worsen. The patient was taught to watch for S/S of infection (redness, pus, pain, increased swelling, chills or fever) and to call the PCP or wound care clinic if such occurs. The patient was educated on offloading the area by avoiding direct pressure to the wound bed. Education as well as the pathophysiology of the disease process was provided on infection, edema, necrotic tissue and its relationship tononhealing wounds. Education was also provided on treatment plan. Patient verbalized understanding. Total time spent was 15 minutes: Preparing to see the patient (e.g., review of tests) Obtaining and/or reviewing separately obtained history Performing a medically appropriate examination and/or evaluation Counseling and educating the patient/family/caregiver Ordering medications, tests, or procedures Documenting clinical information in the electronic or other health record - ARMANI MERIDA 05/30/24 1:34 PM Isatu Sargent APRN, JOSE ANTONIO, CWS, [place] [facility]: [phone] ARMANI Merida 03/28/24 1330 ARMANI Merida 04/25/24 1337 ARMANI Merida 05/09/24 1351 ARMANI Merida 05/30/24 1339 [facility] Instructions* Patient Instructions* Brianne Singh RN - 05/30/2024 1:00 PM EST [facility]: Wound Management Treatment Plan Wound Location(s): mid abdomen surgical site HOW TO CARE FOR YOUR WOUND Okay to shower ON dressing change days The following should be performed three times per week and as needed STEP 1: Cleanse wound with Soap and water, rinse well, and pat dry. Irrigate or rinse wound with NO IRRIGATION REQUIRED. STEP 2: Soak wound with NO SOAK REQUIRED. STEP 3: Apply thin layer of zinc oxide paste to tanya wound to help with itching and moisture STEP 4: Cover wound with xeroform Then cover with 6X6 silicone border foam dressing. You may shower with this dressing on. ACTIVITY: Avoid direct pressure to wound(s) at all times NUTRITION: High protein diet SKIN CARE: keep wound covered at all times SWELLING CONTROL: ITEMS TO FOLLOW UP ON: None Length Width Depth Wound 03/28/24 1 Other (comment) Abdomen Mid-Wound Length (cm): 6 cm Wound 03/28/24 1 Other (comment) Abdomen Mid-Wound Width (cm): 5.2 cm Wound 03/28/24 1 Other (comment) Abdomen Mid-Wound Depth (cm): 0.1 cm Wound drainage Type Description small serous Serous, yellow [facility] this [facility] History of Present illness Narrative* Isatu Osorio Deisi, SQUADRON WORKER-INSPECTOR AND HAND PACKAGER - 05/09/2024 1:00 PM EST Images from the original note were not included. Wound Care Progress Note Patient: Lino Peters Date of : 1950 Chief Compliant: abdominal wound follow up SUBJECTIVE/HPI: Lino is a 73 y.o. male who presents to [facility] for evaluation of 1 ulcer(s) on the mid abdomen. Patient established with wound clinic on 03/28/2024. Current daily woundcare includes: Collagen covered with foam dressing. Dressing is changed three times weekly per homecare nurses. Patient was hospitalized for a very large umbilical hernia repair which was completed 02/22/2024 by. patient reports hernia was present for at least 27 years.Patient's chart was reviewed forall available supporting documentation, laboratory results and radiographic examination. Measurable wound changes: decrease wound measurement Patient accompanied by: self, ambulates Nutritional screen shows patient does take in three servings of protein per day. Patient does deny fever, chills, sweats, or other signs of infection. Prescribed antibiotics: none Today's reported Blood Sugar: Non applicable No results found for: HGBA1C Tobacco use: denied - never a smoker Contributing comorbid conditions: atrial fibrillation treated with Eliquis, COPD,BMI 41.93 Patient Active Problem List Diagnosis Pneumonia due to COVID-19 virus Diarrhea of infectious origin Longstanding persistent atrial fibrillation (CMS-H[facility]) Coronary artery disease involving red devil coronary artery Skin infection Morbid obesity due to excess calories [place] Strangulated hernia of abdominal wall Incarcerated ventral hernia COPD (chronic obstructive pulmonary disease) [place]) Hypertensive heart disease with heart failure [place] 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 Non-healing surgical wound Essential hypertension Past Medical History: Diagnosis Date Atrial fibrillation [place] Coronary artery disease GERD (gastroesophageal reflux disease) Hyperlipidemia Hypertension NSTEMI (non-ST elevated myocardial infarction) [place] Skin infection 02/20/2024 Past Surgical History: Procedure Laterality Date CARDIAC SURGERY stent DEBRIDEMENT AND EXCISION SKIN TO FASCIA N/A 02/22/2024 Performed by Brandon Rendon MD at [facility] REPAIR HERNIA UMBILICAL N/A 02/22/2024 Performed by Brandon Rendon MD at [facility] Current Outpatient Medications Medication Sig Dispense Refill acetaminophen (TYLENOL EXTRA STRENGTH) 500 mg tablet Take 2 tablets (1,000 mg total) by mouth every6 (six) hours as needed for pain. 30 tablet 0 metoprolol tartrate (LOPRESSOR) 25 mg tablet Take 1 tablet (25 mg total) by mouth in the morning and 1 tablet (25 mg total) before bedtime. No current facility-administered medications for this visit. No Known Allergies The following portions of the patient's history were reviewed and updated as appropriate: allergies, current medications, past family history, past medical history, past social history, past surgicalhistory, problem list, and medication reconciliation was completed including current medication andpost discharge medication. Pain Scale: Pain Scale 0/10: 0 Review of Systems Constitutional: Negative. Negative for activity change, appetite change and fever. HENT: Positive for hearing loss. Negative for trouble swallowing. Respiratory: Positive for shortness of breath. Negative for cough and wheezing. Cardiovascular: Negative. Negative for chest pain, palpitations and leg swelling. Gastrointestinal: Positive for diarrhea. Negative for abdominal distention, nausea and vomiting. Genitourinary: Negative. Negative for dysuria, frequency and urgency. Musculoskeletal: Negative. Negative for neck stiffness. Skin: Positive for color change and wound. Neurological: Negative. Negative for dizziness, numbness and headaches. Objective: Vitals: 05/09/24 1307 BP: 159/90 Pulse: 103 Resp: 16 Temp: 36.7 C (98 F) Physical Exam Vitals and nursing note reviewed. Constitutional: Appearance: He is well-developed. HENT: Head: Normocephalic and atraumatic. Cardiovascular: Rate and Rhythm: Regular rhythm. Tachycardia present. Heart sounds: Normal heart sounds. No murmur heard. No gallop. Pulmonary: Effort: Pulmonary effort is normal. Breath sounds: Normal breath sounds. No wheezing. Abdominal: General: Bowel sounds are decreased. Palpations: Abdomen is soft. Tenderness: There is no abdominal tenderness. Musculoskeletal: General: Normal range of motion. Cervical back: Normal range of motion. Skin: General: Skin is warm and dry. Neurological: Mental Status: He is alert and oriented to person, place, and time. Wound Assessment Wound 03/28/24 1 Other (comment) Abdomen Mid (Active) Wound Image Pre debridement Post debridement 05/09/241320 Site Assessment [place];Pale;Red 05/09/241309 Tanya-wound Assessment [place] 05/09/241309 Wound Length (cm) 7 cm 05/09/241320 Wound Width (cm) 6.1 cm 05/09/241320 Wound Surface Area (cm^2) 42.7 cm^2 05/09/241320 Wound Depth (cm) 0.1 cm 05/09/241320 Wound Volume (cm^3) 4.27 cm^3 05/09/241320 Change in Wound Size % 67.97 05/09/241320 Drainage Description [place];Yellow;Serous 05/09/241309 Drainage Amount Small 05/09/241309 Treatments Cleansed with;Soak with;Vashe/Hypochlorous Acid 05/09/24 131 Debridement Performed? Y 05/09/241320 Type of Debridement Selective 05/09/241320 Debridement Area (cm^2) 42.7 cm^2 05/09/241320 Dressing Type Collagen;Silicone dressing;Foam 05/09/241320 Dressing Changed Changed 05/09/241320 Dressing Status Clean;Dry;Intact 05/09/241320 Wound Bed Granulation (%) 100% 05/09/241309 Discussion: Debridement is the removal of foreign material and/or devitalized tissue until healthy tissue is exposed. Risks, benefits and alternatives were discussed with the patient. We discussed possible complications, including infection and bleeding. Written consent was obtained prior to the procedure. Timeout procedure completed. Goal of debridement includes: removal of devitalized tissue, decrease risk of infection, promote wound healing and prevent further complications. Procedure: Debridement/Procedure Level: Removal of devitalized tissue, nonviable tissue and/or infection. Selective Instrument Used: Curette and vashe moist 4 X 4 gauze Anesthesia EMLA Bleeding: None Bleeding Control: None Added Pain Control: None Specimen Taken: None Total Surface Area of Debridement: 42.7 cm2 Patient tolerates procedure well Assessment/Plan/Education: 1. Non-healing surgical wound, subsequent encounter 2. H/O umbilical hernia repair Wash mild soap and water Cover with collagen, may moisten with normal saline for absorption if needed. Cover with ABD or other dressing of comfort, prefer silicone bordered foam Changed 3 times weekly per home care nurses Continue with lifting and weight restriction Communications sent to home care nurse. Patient instructed in surgical wound care to abdomen. Short term goal: medical compliance FDC goal: wound closure Patient verbalize understanding of treatment regimen and the importance of adherence. Follow up in wound clinic in 3 weeks Instructed to contact wound clinic, PCP or ER should symptoms worsen. The patient was taught to watch for S/S of infection (redness, pus, pain, increased swelling, chills or fever) and to call the PCP or wound care clinic if such occurs. The patient was educated on offloading the area by avoiding direct pressure to the wound bed. Education as well as the pathophysiology of the disease process was provided on infection, edema, necrotic tissue and its relationship tononhealing wounds. Education was also provided on treatment plan. Patient verbalized understanding. Total time spent was 19 minutes: Preparing to see the patient (e.g., review of tests) Obtaining and/or reviewing separately obtained history Performing a medically appropriate examination and/or evaluation Counseling and educating the patient/family/caregiver Ordering medications, tests, or procedures Documenting clinical information in the electronic or other health record - ARMANI MERIDA 05/09/24 1:47 PM Isatu Sargent APRN, JOSE ANTONIO, CWS, FE [place] [facility]: [phone] ARMANI Merida 03/28/24 1330 ARMANI Merida 04/25/24 6232 ARMANI Merida 05/09/24 1351 documented in this [facility]11-15-2024 Instructions* Patient Instructions* Kandy Harris RN - 05/09/2024 1:00 PM EST [facility]: Wound Management Treatment Plan Wound Location(s): mid abdomen surgical site HOW TO CARE FOR YOUR WOUND Okay to shower ON dressing change days The following should be performed three times per week and as needed STEP 1: Cleanse wound with Soap and water, rinse well, and pat dry. Irrigate or rinse wound with NO IRRIGATION REQUIRED. STEP 2: Soak wound with NO SOAK REQUIRED. STEP 3: Pack with NO PACKING REQUIRED STEP 4: Cover wound with piece of Collagen, lightly moisten collagen with NS or Vashe Wipe surrounding wound bed skin with skin prep or Cavilon skin prep wipe. Then cover with 6X6 silicone border foam dressing. You may shower with this dressing on. ACTIVITY: Avoid direct pressure to wound(s) at all times NUTRITION: High protein diet SKIN CARE: keep wound covered at all times SWELLING CONTROL: ITEMS TO FOLLOW UP ON: None Length Width Depth Wound 03/28/24 1 Other (comment) Abdomen Mid-Wound Length (cm): 7 cm Wound 03/28/24 1 Other (comment) Abdomen Mid-Wound Width (cm): 6.1 cm Wound 03/28/24 1 Other (comment) Abdomen Mid-Wound Depth (cm): 0.1 cm Wound drainage Type Description small serous Serous, yellow documented in this [facility]11-01-2024 History of Present illness Narrative* ARMANI Merida - 04/25/2024 1:00 PM EDT Images from the original note were not included. Wound Care Progress Note Patient: Lino Peters Date of : 1950 Chief Compliant: abdominal wounds SUBJECTIVE/HPI: Lino is a 73 y.o. male who presents to [facility] for evaluation of 1 ulcer(s) on the mid abdomen. Patient established with wound clinic on 03/28/2024. Current daily woundcare includes: Collagen covered with foam dressing. Hydrocolloid failed, causing increase skin maceration. Dressing is changed three times weekly per home care nurses. Patient was hospitalized for a very large umbilical hernia repair which was completed 02/22/2024 by. patient reports hernia was present for at least 27 years.Patient's chart was reviewed forall available supporting documentation, laboratory results and radiographic examination. Measurable wound changes: decrease wound measurement Patient accompanied by: self, ambulates Nutritional screen shows patient does take in three servings of protein per day. Patient does deny fever, chills, sweats, or other signs of infection. Prescribed antibiotics: none Today's reported Blood Sugar: Non applicable No results found for: HGBA1C Tobacco use: denied - never a smoker Contributing comorbid conditions: atrial fibrillation treated with Eliquis, COPD,BMI 41.93 Patient Active Problem List Diagnosis Pneumonia due to COVID-19 virus Diarrhea of infectious origin Longstanding persistent atrial fibrillation ([facility]) Coronary artery disease involving red devil coronary artery Skin infection Morbid obesity due to excess calories [place] Strangulated hernia of abdominal wall Incarcerated ventral hernia COPD (chronic obstructive pulmonary disease) [place]) Hypertensive heart disease with heart failure [place]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 Non-healing surgical wound Essential hypertension Past Medical History: Diagnosis Date Atrial fibrillation [place] Coronary artery disease GERD (gastroesophageal reflux disease) Hyperlipidemia Hypertension NSTEMI (non-ST elevated myocardial infarction) [place] Skin infection 02/20/2024 Past Surgical History: Procedure Laterality Date CARDIAC SURGERY stent DEBRIDEMENT AND EXCISION SKIN TO FASCIA N/A 02/22/2024 Performed by Brandon Rendon MD at [facility] REPAIR HERNIA UMBILICAL N/A 02/22/2024 Performed by Brandon Rendon MD at [facility] Current Outpatient Medications Medication Sig Dispense Refill acetaminophen (TYLENOL EXTRA STRENGTH) 500 mg tablet Take 2 tablets (1,000 mg total) by mouth every6 (six) hours as needed for pain. 30 tablet 0 metoprolol tartrate (LOPRESSOR) 25 mg tablet Take 1 tablet (25 mg total) by mouth in the morning and 1 tablet (25 mg total) before bedtime. No current facility-administered medications for this visit. No Known Allergies The following portions of the patient's history were reviewed and updated as appropriate: allergies, current medications, past family history, past medical history, past social history, past surgicalhistory, problem list, and medication reconciliation was completed including current medication andpost discharge medication. Pain Scale: Pain Scale 0/10: 0 Review of Systems Constitutional: Negative. Negative for activity change, appetite change and fever. HENT: Positive for hearing loss. Negative for trouble swallowing. Respiratory: Positive for shortness of breath. Negative for cough and wheezing. Cardiovascular: Negative. Negative for chest pain, palpitations and leg swelling. Gastrointestinal: Positive for diarrhea. Negative for abdominal distention, nausea and vomiting. Genitourinary: Negative. Negative for dysuria, frequency and urgency. Musculoskeletal: Negative. Negative for neck stiffness. Skin: Positive for color change and wound. Neurological: Negative. Negative for dizziness, numbness and headaches. Objective: Vitals: 04/25/24 1310 BP: 158/72 Pulse: 116 Resp: 16 Temp: 37.3 C (99.1 F) Physical Exam Vitals and nursing note reviewed. Constitutional: Appearance: He is well-developed. HENT: Head: Normocephalic and atraumatic. Cardiovascular: Rate and Rhythm: Regular rhythm. Tachycardia present. Heart sounds: Normal heart sounds. No murmur heard. No gallop. Pulmonary: Effort: Pulmonary effort is normal. Breath sounds: Normal breath sounds. No wheezing. Abdominal: General: Bowel sounds are decreased. Palpations: Abdomen is soft. Tenderness: There is no abdominal tenderness. Musculoskeletal: General: Normal range of motion. Cervical back: Normal range of motion. Skin: General: Skin is warm and dry. Neurological: Mental Status: He is alert and oriented to person, place, and time. Wound Assessment Wound 03/28/24 1 Other (comment) Abdomen Mid (Active) Wound Image 04/25/24 131 Site Assessment [place];Pale;Yellow;Red 04/25/24 131 Tanya-wound Assessment [place];Intact;Blanchable erythema 04/25/24 131 Wound Length (cm) 8.4 cm 04/25/24 131 Wound Width (cm) 6.5 cm 04/25/241311 Wound Surface Area (cm^2) 54.6 cm^2 04/25/241311 Wound Depth (cm) 0.1 cm 04/25/241311 Wound Volume (cm^3) 5.46 cm^3 04/25/241311 Change in Wound Size % 59.05 04/25/24 131 Drainage Description Pedraza;Yellow;Serous 04/25/241311 Drainage Amount Small 04/25/241311 Treatments Cleansed with;Soak with;Vashe/Hypochlorous Acid 04/25/241311 Debridement Performed? N 04/25/241311 Dressing Type Collagen;Silicone dressing;Foam 04/25/241311 Dressing Changed New 04/25/241311 Dressing Status Clean;Dry;Intact 04/25/241311 Wound Bed Granulation (%) 75% to 100% 04/25/241311 Wound Bed Slough (%) < 25% 04/25/241311 Assessment/Plan/Education: 1. Non-healing surgical wound, subsequent encounter 2. H/O umbilical hernia repair Wash mild soap and water Cover with collagen, may moisten with normal saline for absorption if needed. Cover with ABD or other dressing of comfort, prefer silicone bordered foam Changed 3 times weekly per home care nurses Continue with lifting and weight restriction Communications sent to home care nurse. Patient instructed in surgical wound care to abdomen. Short term goal: medical compliance FDC goal: wound closure Patient verbalize understanding of treatment regimen and the importance of adherence. Follow up in wound clinic in 2 weeks Instructed to contact wound clinic, PCP or ER should symptoms worsen. The patient was taught to watch for S/S of infection (redness, pus, pain, increased swelling, chills or fever) and to call the PCP or wound care clinic if such occurs. The patient was educated on offloading the area by avoiding direct pressure to the wound bed. Education as well as the pathophysiology of the disease process was provided on infection, edema, necrotic tissue and its relationship tononhealing wounds. Education was also provided on treatment plan. Patient verbalized understanding. Total time spent was 19 minutes: Preparing to see the patient (e.g., review of tests) Obtaining and/or reviewing separately obtained history Performing a medically appropriate examination and/or evaluation Counseling and educating the patient/family/caregiver Ordering medications, tests, or procedures Documenting clinical information in the electronic or other health record - ARMANI MERIDA 04/25/24 1:20 PM Isatu Sargent APRN, JOSE ANTONIO, CWS, [facility]: [phone] ARMANI Merida 03/28/24 1330 ARMANI Merida 04/25/24 1337 documented in [facility] Instructions* Patient Instructions* Kandy Harris RN - 04/25/2024 1:00 PM EDT [facility] CARE: Wound Management Treatment Plan Wound Location(s): mid abdomen surgical site HOW TO CARE FOR YOUR WOUND Okay to shower ON dressing change days The following should be performed three times per week and as needed STEP 1: Cleanse wound with Soap and water, rinse well, and pat dry. Irrigate or rinse wound with NO IRRIGATION REQUIRED. STEP 2: Soak wound with NO SOAK REQUIRED. STEP 3: Pack with NO PACKING REQUIRED STEP 4: Cover wound with piece of Collagen Wipe surrounding wound bed skin with skin prep or Cavilon skin prep wipe. Then cover with 6X6 silicone border foam dressing. You may shower with this dressing on. ACTIVITY: Avoid direct pressure to wound(s) at all times NUTRITION: High protein diet SKIN CARE: keep wound covered at all times SWELLING CONTROL: ITEMS TO FOLLOW UP ON: None Length Width Depth Wound drainage Type Description small Serosanginous Serous, yellow, pedraza documented in this encounterJ[facility]10-[facility] Miscellaneous Notes* Telephone Encounter - Kandy Harris RN - 04/16/2024 9:39 AM EDT Luz Marina from [facility] called to report that the hydrocolloid dressing over the pt wound is not staying in place and is holding in drainage. Currently using collagen to wound bed and covering with hydrocolloid dressing. Home health requesting to use 6X6 optifoam dressing to cover wound instead of hydrocolloid. Provider informed of above note. Home health to continue using collagen to wound bed, cover with optifoam dressing. Call with any issues. Pt has next wound clinic appt on 04/25/24. documented in this encounterJ[facility] Telephone encounter Note* Telephone Encounter - Kandy Harris RN - 04/16/2024 9:39 AM EDT Luz Marina from [facility] called to report that the hydrocolloid dressing over the pt wound is not staying in place and is holding in drainage. Currently using collagen to wound bed and covering with hydrocolloid dressing. Home health requesting to use 6X6 optifoam dressing to cover wound instead of hydrocolloid. Provider informed of above note. Home health to continue using collagen to wound bed, cover with optifoam dressing. Call with any issues. Pt has next wound clinic appt on 04/25/24. 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 Wound Care Progress Note Patient: Lino Peters Date of : 1950 Chief Compliant: abdominal wound, follow up SUBJECTIVE/HPI: Lino is a 73 y.o. male who presents to [facility] for evaluation of 1 ulcer(s) on the mid abdomen. Patient established with wound clinic on 03/28/2024. Current daily woundcare includes: xeroform. Patient has established home care nurses 3 x week. Patient was hospitalized for a very large umbilical hernia repair which was completed 02/22/2024 by. Patient reports hernia was present for at least 27 years.Patient's chart was reviewed forall available supporting documentation, laboratory results and radiographic examination. Measurable wound changes: wound measurement smaller Patient accompanied by: self, ambulates Nutritional screen shows patient does take in three servings of protein per day. Patient does deny fever, chills, sweats, or other signs of infection. Prescribed antibiotics: completed course of doxycycline and Keflex as prescribed. Today's reported Blood Sugar: Non applicable No results found for: HGBA1C Tobacco use: denied - never a smoker Contributing comorbid conditions: atrial fibrillation treated with Eliquis, COPD,BMI 41.93 Patient Active Problem List Diagnosis Pneumonia due to COVID-19 virus Diarrhea of infectious origin Longstanding persistent [place] Coronary artery disease involving red devil coronary artery Skin infection Morbid obesity due to excess calories [place] Strangulated hernia of abdominal wall Incarcerated ventral hernia COPD (chronic obstructive pulmonary disease) [place]) Hypertensive heart disease with heart failure [place]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 Non-healing surgical wound Past Medical History: Diagnosis Date Atrial fibrillation [place] Coronary artery disease GERD (gastroesophageal reflux disease) Hyperlipidemia Hypertension NSTEMI (non-ST elevated myocardial infarction) [place] Skin infection 02/20/2024 Past Surgical History: Procedure Laterality Date CARDIAC SURGERY stent DEBRIDEMENT AND EXCISION SKIN TO FASCIA N/A 02/22/2024 Performed by Brandon Rendon MD at [facility] REPAIR HERNIA UMBILICAL N/A 02/22/2024 Performed by Brandon Rendon MD at [facility] Current Outpatient Medications Medication Sig Dispense Refill acetaminophen (TYLENOL EXTRA STRENGTH) 500 mg tablet Take 2 tablets (1,000 mg total) by mouth every6 (six) hours as needed for pain. 30 tablet 0 metoprolol tartrate (LOPRESSOR) 25 mg tablet Take 1 tablet (25 mg total) by mouth in the morning and 1 tablet (25 mg total) before bedtime. No current facility-administered medications for this visit. No Known Allergies The following portions of the patient's history were reviewed and updated as appropriate: allergies, current medications, past family history, past medical history, past social history, past surgicalhistory, problem list, and medication reconciliation was completed including current medication andpost discharge medication. Pain Scale: Pain Scale 0/10: 0 Review of Systems Constitutional: Negative for activity change, appetite change, chills, diaphoresis, fatigue, fever and unexpected weight change. HENT: Positive for hearing loss. Negative for trouble swallowing. Respiratory: Positive for shortness of breath (baseline). Negative for cough and wheezing. Cardiovascular: Negative for chest pain, palpitations and leg swelling. Gastrointestinal: Negative for abdominal distention, nausea and vomiting. Genitourinary: Negative for decreased urine volume and dysuria. Musculoskeletal: Negative for neck stiffness. Skin: Positive for wound. Negative for color change. Neurological: Negative for dizziness, syncope, weakness, numbness and headaches. Objective: Vitals: 04/11/241314 BP: 149/76 Pulse: 92 Resp: 16 Temp: 36.7 C (98 F) Physical Exam Vitals reviewed. Constitutional: Appearance: He is well-developed. HENT: Head: Normocephalic and atraumatic. Cardiovascular: Rate and Rhythm: Normal rate. Heart sounds: Normal heart sounds. Pulmonary: Effort: Pulmonary effort is normal. No respiratory distress. Abdominal: General: Bowel sounds are normal. There is no distension. Palpations: Abdomen is soft. Tenderness: There is abdominal tenderness. Skin: General: Skin is warm and dry. Capillary Refill: Capillary refill takes less than 2 seconds. Coloration: Skin is not jaundiced. Findings: Wound present. No bruising, erythema or rash. Neurological: Mental Status: He is alert and oriented to person, place, and time. Psychiatric: Mood and Affect: Mood normal. Behavior: Behavior normal. Wound Assessment Wound 03/28/24 1 Other (comment) Abdomen Mid (Active) Wound Image 04/11/241318 Site Assessment Red;[place];Yellow pale 04/11/241318 Tanya-wound Assessment [place];Intact;Blanchable erythema 04/11/241318 Wound Length (cm) 11 cm 04/11/241318 Wound Width (cm) 8.2 cm 04/11/241318 Wound Surface Area (cm^2) 90.2 cm^2 04/11/241318 Wound Depth (cm) 0.1 cm 04/11/241318 Wound Volume (cm^3) 9.02 cm^3 04/11/241318 Change in Wound Size % 32.34 04/11/241318 Drainage Description [place];Yellow;Serosanguineous;Odor None 04/11/241318 Drainage Amount Moderate 04/11/241318 Treatments Cleansed with;Soak with;Vashe/Hypochlorous Acid 04/11/241318 Debridement Performed? N 03/28/241309 Dressing Type Xeroform;Abdominal dressing 03/28/241309 Dressing Changed New 03/28/241309 Dressing Status Clean;Dry;Intact 03/28/241309 Wound Bed Granulation (%) 75% to 100% 04/11/241318 Wound Bed Slough (%) 25% to 50% 04/11/241318 Assessment/Plan/Education: 1. Non-healing surgical wound, subsequent encounter 2. H/O umbilical hernia repair Patient states he has been showering daily. Less healthy granulation today. Will update dressing orders. Wash mild soap and water. Cover collagen. Cover with hydrocolloid dressing and warm into place Changed 3 times weekly per home care nurses Continue with lifting and weight restriction Communications sent to home care nurse. Home care please order supplies Patient instructed in surgical wound care to abdomen. Short term goal: medical compliance FDC goal: wound closure Patient verbalize understanding of treatment regimen and the importance of adherence. Follow up in wound clinic in 2 weeks Instructed to contact wound clinic, PCP or ER should symptoms worsen. The patient was taught to watch for S/S of infection (redness, pus, pain, increased swelling, chills or fever) and to call the PCP or wound care clinic if such occurs. The patient was educated on offloading the area by avoiding direct pressure to the wound bed. Education as well as the pathophysiology of the disease process was provided on infection, edema, necrotic tissue and its relationship tononhealing wounds. Education was also provided on treatment plan. Patient verbalized understanding. Total time spent was 22 minutes: Preparing to see the patient (e.g., review of tests) Obtaining and/or reviewing separately obtained history Performing a medically appropriate examination and/or evaluation Counseling and educating the patient/family/caregiver Ordering medications, tests, or procedures Documenting clinical information in the electronic or other health record NURIS Ramirez [facility] Main Office: [phone] Email: ARMANI Carballo 04/11/24 6784 documented in this [facility]10-18-2024 Instructions* Patient Instructions* ARMANI Carballo - 04/11/2024 1:00 PM EDT CR[facility]ICAL ACCESS [facility]OSPITAL CARE: 04/11/24 new orders Wound Management Treatment Plan Wound Location(s): mid abdomen surgical site HOW TO CARE FOR YOUR WOUND Okay to shower ON dressing change days The following should be performed three times per week and as needed STEP 1: Cleanse wound with Soap and water, rinse well, and pat dry. Irrigate or rinse wound with NO IRRIGATION REQUIRED. STEP 2: Soak wound with NO SOAK REQUIRED. STEP 3: Pack with NO PACKING REQUIRED STEP 4: Cover wound with piece of Collagen Wipe surrounding wound bed skin with skin prep or Cavilon skin prep wipe. Then cover with 8X8 Hydrocolloid dressing. Warm dressing into place You may shower with this dressing on. ACTIVITY: Avoid direct pressure to wound(s) at all times NUTRITION: High protein diet SKIN CARE: keep wound covered at all times SWELLING CONTROL: ITEMS TO FOLLOW UP ON: None Length Width Depth Wound drainage Type Description moderate Serosanginous Serosanguinous, yellow, pedraza documented in this encounterJ.[facility]. [facility]10-04-[facility] History of Present illness Narrative* ARMANI Merida - 03/28/2024 1:00 PM EDT Images from the original note were not included. Wound Care Progress Note Patient: Lino Peters Date of : 1950 Chief Compliant: abdominal wounds New patient evaluation SUBJECTIVE/HPI: Lino is a 73 y.o. male who presents to [facility] for evaluation of 1 ulcer(s) on the mid abdomen, umbilical areas. Patient established with wound clinic on 03/28/2024. Current daily wound care includes: negative pressure wound therapy has been put on hold. Patient presents to wound clinic with dry dressings in place. Patient has established home care nurses. Patient was hospitalized for a very large umbilical hernia repair which was completed 02/22/2024 by. patient reports hernia was present for at least 27 years.Patient's chart was reviewed forall available supporting documentation, laboratory results and radiographic examination. Measurable wound changes: new patient wound evaluation Patient accompanied by: self, ambulates Nutritional screen shows patient does take in three servings of protein per day. Patient does deny fever, chills, sweats, or other signs of infection. Prescribed antibiotics: completed course of doxycycline and Keflex as prescribed. Today's reported Blood Sugar: Non applicable No results found for: HGBA1C Tobacco use: denied - never a smoker Contributing comorbid conditions: atrial fibrillation treated with Eliquis, COPD,BMI 41.93 Patient Active Problem List Diagnosis Pneumonia due to COVID-19 virus Diarrhea of infectious origin Longstanding persistent atrial fibrillation ([facility]) Coronary artery disease involving red devil coronary artery Skin infection Morbid obesity due to excess calories [place] [place] Strangulated hernia of abdominal wall Incarcerated ventral hernia COPD (chronic obstructive pulmonary disease) [place] Hypertensive heart disease with heart failure [place] 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 Surgical wound, non healing Past Medical History: Diagnosis Date Atrial fibrillation [place] Coronary artery disease GERD (gastroesophageal reflux disease) Hyperlipidemia Hypertension NSTEMI (non-ST elevated myocardial infarction) [place] Skin infection 02/20/2024 Past Surgical History: Procedure Laterality Date CARDIAC SURGERY stent DEBRIDEMENT AND EXCISION SKIN TO FASCIA N/A 02/22/2024 Performed by Brandon Rendon MD at [facility] REPAIR HERNIA UMBILICAL N/A 02/22/2024 Performed by Brandon Rendon MD at [facility] Current Outpatient Medications Medication Sig Dispense Refill acetaminophen (TYLENOL EXTRA STRENGTH) 500 mg tablet Take 2 tablets (1,000 mg total) by mouth every6 (six) hours as needed for pain. 30 tablet 0 apixaban (ELIQUIS) 5 mg tablet Take 1 tablet (5 mg total) by mouth in the morning and 1 tablet (5 mg total) before bedtime. Do all this for 30 days. 60 tablet 0 metoprolol tartrate (LOPRESSOR) 25 mg tablet Take 1 tablet (25 mg total) by mouth in the morning and 1 tablet (25 mg total) before bedtime. No current facility-administered medications for this visit. No Known Allergies The following portions of the patient's history were reviewed and updated as appropriate: allergies, current medications, past family history, past medical history, past social history, past surgicalhistory, problem list, and medication reconciliation was completed including current medication andpost discharge medication. Pain Scale: Pain Scale 0/10: 0 Review of Systems Constitutional: Negative. Negative for activity change, appetite change and fever. HENT: Positive for hearing loss. Negative for trouble swallowing. Respiratory: Positive for shortness of breath. Negative for cough and wheezing. Cardiovascular: Negative. Negative for chest pain, palpitations and leg swelling. Gastrointestinal: Positive for diarrhea. Negative for abdominal distention, nausea and vomiting. Genitourinary: Negative. Negative for dysuria, frequency and urgency. Musculoskeletal: Negative. Negative for neck stiffness. Skin: Positive for color change and wound. Neurological: Negative. Negative for dizziness, numbness and headaches. Objective: Vitals: 03/28/24 1302 BP: 95/68 Pulse: 108 Resp: 16 Temp: 37 C (98.6 F) Physical Exam Vitals and nursing note reviewed. Constitutional: Appearance: He is well-developed. HENT: Head: Normocephalic and atraumatic. Cardiovascular: Rate and Rhythm: Regular rhythm. Tachycardia present. Heart sounds: Normal heart sounds. No murmur heard. No gallop. Pulmonary: Effort: Pulmonary effort is normal. Breath sounds: Normal breath sounds. No wheezing. Abdominal: General: Bowel sounds are decreased. Palpations: Abdomen is soft. Tenderness: There is abdominal tenderness. Musculoskeletal: General: Normal range of motion. Cervical back: Normal range of motion. Skin: General: Skin is warm and dry. Neurological: Mental Status: He is alert and oriented to person, place, and time. Wound Assessment Wound 03/28/24 1 Other (comment) Abdomen Mid (Active) Wound Image 03/28/24 1310 Site Assessment Hypergranulation;Red;Yellow 03/28/24 1310 Tanya-wound Assessment [place];Intact;Blanchable erythema 03/28/241309 Wound Length (cm) 13.2 cm 03/28/241309 Wound Width (cm) 10.1 cm 03/28/241309 Wound Surface Area (cm^2) 133.32 cm^2 03/28/241309 Wound Depth (cm) 0.1 cm 03/28/241309 Wound Volume (cm^3) 13.332 cm^3 03/28/241309 Drainage Description Pedraza;Yellow;Serosanguineous;Odor None 03/28/241309 Drainage Amount Moderate 03/28/241309 Treatments Cleansed with;Soak with;Vashe/Hypochlorous Acid 03/28/241309 Debridement Performed? N 03/28/241309 Dressing Type Xeroform;Abdominal dressing 03/28/241309 Dressing Changed New 03/28/241309 Dressing Status Clean;Dry;Intact 03/28/241309 Wound Bed Granulation (%) 75% to 100% 03/28/241309 Wound Bed Slough (%) < 25% 03/28/241309 Assessment/Plan/Education: 1. Non-healing surgical wound, initial encounter 2. H/O umbilical hernia repair 3. Abdominal wall abscess at site of surgical wound Discontinue negative pressure wound therapy, may return device Wash mild soap and water Cover with Xeroform Cover with ABD or other dressing of comfort Changed 3 times weekly per home care nurses Continue with lifting and weight restriction Communications sent to home care nurse. Patient instructed in surgical wound care to abdomen. 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 Follow up in wound clinic in 2 weeks Instructed to contact wound clinic, PCP or ER should symptoms worsen. The patient was taught to watch for S/S of infection (redness, pus, pain, increased swelling, chills or fever) and to call the PCP or wound care clinic if such occurs. The patient was educated on offloading the area by avoiding direct pressure to the wound bed. Education as well as the pathophysiology of the disease process was provided on infection, edema, necrotic tissue and its relationship tononhealing wounds. Education was also provided on treatment plan. Patient verbalized understanding. Total time spent was 24 minutes: Preparing to see the patient (e.g., review of tests) Obtaining and/or reviewing separately obtained history Performing a medically appropriate examination and/or evaluation Counseling and educating the patient/family/caregiver Ordering medications, tests, or procedures Documenting clinical information in the electronic or other health record - ARMANI MERIDA 03/28/24 1:20 PM Isatu Sargent APRN, JOSE ANTONIO, CWS, COCN [facility]: [phone] ARMANI Merida 03/28/24 1330 documented in this encounterJ.[facility]. [facility]10-04-[facility] Instructions* Patient Instructions* Kandy Harris RN - 03/28/2024 1:00 PM EDT [facility] Wound Management Treatment Plan Wound Location(s): mid abdomen surgical site HOW TO CARE FOR YOUR WOUND The following should be performed three times per week and as needed STEP 1: Cleanse wound with Soap and water, rinse well, and pat dry. Irrigate or rinse wound with NO IRRIGATION REQUIRED. STEP 2: Soak wound with NO SOAK REQUIRED. STEP 3: Pack with NO PACKING REQUIRED STEP 4: Cover wound with cut to fit piece of Xeroform gauze, then ABD (Abdominal) dressing STEP 5: Secure dressings with medfix tape. ACTIVITY: Avoid direct pressure to wound(s) at all times NUTRITION: High protein diet SKIN CARE: keep wound covered at all times SWELLING CONTROL: ITEMS TO FOLLOW UP ON: None Length Width Depth Wound 03/28/24 1 Other (comment) Abdomen Mid-Wound Length (cm): 13.2 cm Wound 03/28/24 1 Other (comment) Abdomen Mid-Wound Width (cm): 10.1 cm Wound 03/28/24 1 Other (comment) Abdomen Mid-Wound Depth(cm): 0.1 cm Wound drainage Type Description moderate Serosanginous Serosanguinous, yellow, pedraza documented in this encounter[facility] Miscellaneous Notes* Telephone Encounter - Gloria Hinson - 03/21/2024 4:34 PM EDT Contract: 132 A [facility] would like to get verbal orders to go see patient because patienthas open wound on abdomen * Telephone Encounter - Gloria Hinson - 03/21/2024 4:34 PM EDT Contract: 132 Sent Secure chat message to Dr Farias documented in this encounterJ.W. [facility]-27-[facility] Telephone encounter Note* Telephone Encounter - Gloria Hinson - 03/21/2024 4:34 PM EDT Contract: 132 A [facility] would like to get verbal orders to go see patient because patienthas open wound on abdomen [facility] Telephone encounter Note* Telephone Encounter - Gloria Hinson - 03/21/2024 4:34 PM EDT Contract: 132 Sent Secure chat message to Dr Farias [facility] Miscellaneous Notes* Telephone Encounter - Claudia Figueroa - 03/21/2024 3:57 PM EDT [phone] [facility] home care orders for wound vac patient Lino Peters [address] Moreau * Telephone Encounter - Claudia Figueroa - 03/21/2024 3:57 PM EDT Epic Chat Sent documented in this encounterJ.W. [facility]09-27-2024 Telephone encounter Note* Telephone Encounter - Claudia Carolina - 03/21/2024 3:57 PM EDT [phone] [facility] home care orders for wound vac patient Lino Peters [address] Moreau [facility] Telephone encounter Note* Telephone Encounter - Claudia Carolina - 03/21/2024 3:57 PM EDT Epic Chat Sent [facility] History of Present illness Narrative* [place] Lowery - 03/20/2024 11:30 AM EDT Images from the original note were not included. Subjective: Lino Peters is a 73 y.o. male s/p incarcerated umbilical hernia repair with excisional debridement 20 x 13 x 5cm of skin to fascia/omentum and application of wound VAC on 02/22/24. He was discharged home 02/27 with a VAC to mid abdominal wound. Home Health Care changes 2x per week. He is doing well No pain or discomfort Tolerating a regular diet; no nausea or bloating Having normal bowel function There were no vitals filed for this visit. Physical Exam A&Ox3, comfortable Abdomen: nondistended, soft, nontender Mid line wound: VAC removed, area is clean and granulating, 11 x 9cm, almost superficial except formid portion Picture in media section Assessment: Lino Peters is a 73 y.o.male s/p UHR with excisional debridment Plan: - Continue VAC - Referral sent for Wound Care in [place]; closer to patient's home - No lifting 15# or core activity until wound has healed. - All questions and concerns were answered. - Follow up with General Surgery. Wound Care to manage wound. Call if any additional questions or concerns. Kerline Valadez PA-C [facility] General Surgery [address] [place] [address] [place] Lowery 03/20/24 1159 documented in this encounterJ.W. [facility]09-19-2024 Miscellaneous Notes* Telephone Encounter - Aysha Fleming CMA - 03/13/2024 2:55 PM EDT Called patient to remind them to bring their most current copy of their medication list with them to their appt. Patient verbalizes understanding. documented in this encounterJ.W. [facility]09-19-2024 Telephone encounter Note* Telephone Encounter - Aysha Fleming CMA - 03/13/2024 2:55 PM EDT Called patient to remind them to bring their most current copy of their medication list with them to their appt. Patient verbalizes understanding. [facility] Miscellaneous Notes* Telephone Encounter - Bijal Hou - 02/26/2024 2:26 AM EDT Contract: HALLEY Jaime [facility] called regarding low heart rate on telemetry * Telephone Encounter - Bijal Hou - 02/26/2024 2:26 AM EDT PPCKRYSTYNA I sent Isatu Carney a secure chat message to call Addison @ENA documented in this encounterJ.[facility]. [facility]09-03-2024 Telephone encounter Note* Telephone Encounter - Bijal Hou - 02/26/2024 2:26 AM EDT Contract: HALLEY Jaime @[facility] called regarding low heart rate on telemetry [facility] Telephone encounter Note* Telephone Encounter - Bijal Hou - 02/26/2024 2:26 AM EDT BABAK Yu sent Isatu Carney a secure chat message to call Addison [facility] Miscellaneous Notes* Telephone Encounter - Hilaria Ratliff - 02/21/2024 4:55 PM EDT Contract: [id number] mary Moreau Order Clarification Heparin Drip * Telephone Encounter - Hilaria Ratliff - 02/21/2024 4:55 PM EDT Numeric page sent to Call Facility documented in this encounterJ.W. [facility]08-29-2024 Telephone encounter Note* Telephone Encounter - Hilariatony Ratliff - 02/21/2024 4:55 PM EDT Contract: [id number] mary Moreau Order Clarification Heparin Drip [facility]08-[facility]-2024 Telephone encounter Note* Telephone Encounter - Hilaria Ratliff - 02/21/2024 4:55 PM EDT Numeric page sent to Call Facility [facility]-20[facility] Miscellaneous Notes* Telephone Encounter - Tommy Quiñones - 02/21/2024 6:15 AM EDT Contract: BABAK Carrillo [facility] [phone] # [id number] Pre Op -Anti Coagulation for recommendation * Telephone Encounter - Tommy Quiñones - 02/21/2024 6:15 AM EDT Contract: BABAK Carrillo [facility] [phone] # [id number] Pre Op -Anti Coagulation for recommendation Secure Chat documented in this encounterJ.W. [facility]08-29-2024 Telephone encounter Note* Telephone Encounter - [facility] - 02/21/2024 6:15 AM EDT Contract: BABAK Carrillo [facility] [phone] Rm # [id number] Pre Op -Anti Coagulation for recommendation [facility] Telephone encounter Note* Telephone Encounter - [facility] - 02/21/2024 6:15 AM EDT Contract: BABAK Carrillo [facility] [phone] Rm # [id number] Pre Op -Anti Coagulation for recommendation Secure Chat [facility]08-28-[facility] History of Present illness Narrative* Randy Moreau MD - 02/20/2024 12:00 PM EDT Images from the original note were not included. CHIEF COMPLAINT: Draining from skin History of Present Illness: Lino Peters is a 73 y.o. male patient has had a known large ventral hernia. Does cause him pain. About we can half ago he developed significant redness to the umbilicus. With drainage. Hedid have low-grade fevers at that time. Went to outside facility did get some antibiotics. Had beenseen by a surgeon said he needed emergency surgery but was sent to me for my specialties and large hernias. Patient complains of severe pain around the umbilicus. He is still able to eat. Having bowel movements. Of note patient has significant coronary history with AFib. On Coumadin and Brilinta. Patient also has morbidly obese Pre-op Exam Associated symptoms include abdominal pain, fatigue, a fever and a rash. Pertinent negatives include no chest pain, headaches, myalgias, nausea or vomiting. Past Medical History: Diagnosis Date Atrial fibrillation ([facility]) Skin infection 02/20/2024 Patient Active Problem List Diagnosis Pneumonia due to COVID-19 virus Diarrhea of infectious origin Longstanding persistent atrial fibrillation ([facility]) Coronary artery disease involving red devil coronary artery Skin infection No past surgical history on file. No Known Allergies No current facility-administered medications for this visit. No current outpatient medications on file. Facility-Administered Medications Ordered in Other Visits: acetaminophen (TYLENOL EXTRA STRENGTH) tablet 1,000 mg, 1,000 mg, oral, Q6H PRN, Gina Ramírez MD albuterol (PROVENTIL HFA;VENTOLIN HFA) inhaler 2 puff, 2 puff, inhalation, Q6H PRN, Gina Ramírez MD aspirin EC tablet 81 mg, 81 mg, oral, Daily, Gina Ramírez MD atorvastatin (LIPITOR) tablet 80 mg, 80 mg, oral, Daily, Gina Ramírez MD dextrose (GLUTOSE) 40 % gel 15 g, 15 g, oral, PRN, Gina Ramírez MD dextrose 5 % (D5W) infusion, 100 mL/hr, intravenous, Continuous PRN, Gina Ramírez MD dextrose 50 % in water (D50W) 50% solution 25 mL, 25 mL, intravenous, PRN, Gina Ramírez MD fluconazole (DIFLUCAN) 400 mg/200 mL in iso-osmotic sodium chloride (2 mg/mL premix), 400 mg, intravenous, Q24H, Gina Ramírez MD glucagon HCL injection 1 mg, 1 mg, intramuscular, PRN, Gina Ramírez MD heparin (porcine) injection 2,000 Units, 2,000 Units, intravenous, PRN, Gina Ramírez MD, 2,000Units at 02/21/24 0137 heparin infusion 17123 units/500 mL in 0.45% NaCl (50 units/mL premix), 300- 3,500 Units/hr, intravenous, Continuous, Gina Ramírez MD, Last Rate: 23 mL/hr at 02/21/24 0139, 1,150 Units/hr at 02/21/24 0139 metoprolol tartrate (LOPRESSOR) tablet 25 mg, 25 mg, oral, BID, Gina Ramírez MD, 25 mg at 02/20/24 2242 ondansetron (PF) (ZOFRAN) injection 4 mg, 4 mg, intravenous, Q4H PRN, Gina Ramírez MD oxyCODONE (ROXICODONE) immediate release tablet 5 mg, 5 mg, oral, Q6H PRN OR oxyCODONE (ROXICODONE) immediate release tablet 10 mg, 10 mg, oral, Q6H PRN, Gina Ramírez MD pantoprazole (PROTONIX) EC tablet 40 mg, 40 mg, oral, Daily, Gina Ramírez MD [COMPLETED] piperacillin-tazobactam (ZOSYN) 4.5 g in sodium chloride 0.9 % 50 mL IVPB-MBP, 4.5 g, intravenous, Once, Stopped at 02/20/24 1533 FOLLOWED BY piperacillin-tazobactam (ZOSYN) 3.375 g in sodium chloride 0.9 % 50 mL IVPB-MBP, 3.375 g, intravenous, Q8H, Alida Dunn APRN-JOSE ANTONIO, Last Rate: 12.5 mL/hr at 02/21/24 0543, 3.375 g at 02/21/24 0543 sodium chloride 0.9 % flush 10 mL, 10 mL, intravenous, PRN, Alida Dunn APRN-JOSE ANTONIO, 10 mL at 02/20/24 1424 [COMPLETED] Consult PICC nurse, , , Once AND sodium chloride 0.9 % flush 20 mL, 20 mL, intravenous, Q12H, 20 mL at 02/20/24 2238 AND sodium chloride 0.9 % flush 20 mL, 20 mL, intravenous, PRNAND sodium chloride 0.9 % flush 40 mL, 40 mL, intravenous, PRN, Monica Colón MD sodium chloride 0.9 % flush bag, 25 mL, intravenous, PRN, Gina Ramírez MD sodium chloride 0.9 % infusion, 20 mL/hr, intravenous, Continuous PRN, Gina Ramírez MD vancomycin (VANCOCIN) IVPB 1750 mg in 500 mL sodium chloride 0.9% (CMPD premix), 15 mg/kg, intravenous, Q12H, Gina Ramírez MD, Stopped at 02/21/24 0514 Social History Socioeconomic History Marital status: Spouse name: Not on file Number of children: Not on file Years of education: Not on file Highest education level: Not on file Occupational History Not on file Tobacco Use Smoking status: Never Smokeless tobacco: Never Substance and Sexual Activity Alcohol use: Not Currently Drug use: Not Currently Sexual activity: Not on file Other Topics Concern Not on file Social History Narrative Not on file Social Determinants of Health Financial Resource Strain: Not on file Food Insecurity: No Food Insecurity (02/20/2024) Hunger Screening Food Insecurity - Worry: Never True Food Insecurity - Inability: Never True Transportation Needs: No Transportation Needs (02/20/2024) PRAPARE - Transportation Lack of Transportation (Medical): No Lack of Transportation (Non-Medical): No Physical Activity: Not on file Stress: Not on file Social Connections: Not on file Interpersonal Safety: Not At Risk (02/20/2024) Humiliation, Afraid, Rape, and Kick questionnaire Fear of Current or Ex-Partner: No Emotionally Abused: No Physically Abused: No Sexually Abused: No Housing Instability: Low Risk (02/20/2024) Housing Instability Housing Instability: No No family history on file. Review of Systems Constitutional: Positive for fatigue and fever. Negative for activity change and appetite change. HENT: Negative for hearing loss and voice change. Respiratory: Negative for shortness of breath and wheezing. Cardiovascular: Negative for chest pain and palpitations. Gastrointestinal: Positive for abdominal distention and abdominal pain. Negative for constipation, diarrhea, nausea and vomiting. Endocrine: Negative for cold intolerance and heat intolerance. Genitourinary: Negative for difficulty urinating and hematuria. Musculoskeletal: Negative for back pain and myalgias. Skin: Positive for color change, rash and wound. Neurological: Negative for seizures, light-headedness and headaches. Hematological: Negative for adenopathy. Does not bruise/bleed easily. Psychiatric/Behavioral: Negative for agitation and sleep disturbance. Physical Exam Constitutional: General: He is not in acute distress. Appearance: Normal appearance. He is well-developed. HENT: Head: Normocephalic and atraumatic. Mouth/Throat: Mouth: Mucous membranes are moist. Eyes: General: No scleral icterus. Conjunctiva/sclera: Conjunctivae normal. Neck: Thyroid: No thyromegaly. Cardiovascular: Rate and Rhythm: Normal rate and regular rhythm. Pulses: Normal pulses. Heart sounds: Normal heart sounds. Pulmonary: Effort: Pulmonary effort is normal. No respiratory distress. Breath sounds: Normal breath sounds. No wheezing. Abdominal: General: Bowel sounds are normal. There is no distension. Palpations: Abdomen is soft. Tenderness: There is no guarding or rebound. Musculoskeletal: General: No tenderness or signs of injury. Normal range of motion. Cervical back: Normal range of motion and neck supple. Right lower leg: No edema. Left lower leg: No edema. Lymphadenopathy: Cervical: No cervical adenopathy. Skin: General: Skin is warm and dry. Coloration: Skin is not jaundiced. Neurological: General: No focal deficit present. Mental Status: He is alert and oriented to person, place, and time. Psychiatric: Mood and Affect: Mood normal. Behavior: Behavior normal. Vital Signs: Blood pressure (!) 173/103, pulse 91, resp. rate 16, height 182.9 cm (6' 0.01 ), weight 120.2 kg (265 lb). Respiratory Source: O2 Device: None (Room air) Admission Weight: Weight: 120.2 kg (265 lb) Labs: Lab Results Component Value Date WBC 8.1 02/21/2024 HGB 12.0 (L) 02/21/2024 HCT 37.3 (L) 02/21/2024 MCV 78 (L) 02/21/2024 PLT 243 02/21/2024 Lab Results Component Value Date GLU 92 02/21/2024 CALCIUM 8.5 02/21/2024 K 4.2 02/21/2024 CO2 27 02/21/2024 CL 105 02/21/2024 BUN 15 02/21/2024 CREATININE 0.97 02/21/2024 No results found for: AMYLASE No results found for: LIPASE Lab Results Component Value Date ALT 11 02/21/2024 AST 21 02/21/2024 ALKPHOS 75 03/09/2021 Lab Results Component Value Date INR 1.2 (H) 02/20/2024 INR 1.4 (H) 03/11/2021 INR 1.4 (H) 03/10/2021 PROTIME 13.4 (H) 02/20/2024 PROTIME 15.8 (H) 03/11/2021 PROTIME 15.4 (H) 03/10/2021 Imaging: CT images are not yet available. But the read it talks about incarcerated colon within the hernia Assessment: Lino Peters Jr. is a 73 y.o.male with incarcerated strangulated ventral hernia with necrosis. Significant infection to the abdominal wall. Obesity. Plan: Patient is going to need emergency surgery. This is going to be a very high-risk surgery given he is currently on anticoagulation. I will need to get him reversed. He also is going to need broad-spectrum antibiotics stat. Including vancomycin Zosyn. Also antifungals to cover the multiple celluliticwounds on his body. I explained to him the dire need. Will send him to the emergency room for stat CT scan labs start anticoagulation and will also get a Cardiology consult to help with anticoagulation Randy Moreau MD, FACS [facility] General Surgeons Minimally Invasive Robotic Surgery Board Certified in General Surgery Board Certified in Critical Care Office: [phone] Email: [email or web address] Thank you for allowing me to participate in the care of your patient. Please feel free to contact me with any questions or concerns. [phone] documented in this encounterJ.W. [facility]09-23-2021 NoteEducation Materials Gastroenterology Cholelithiasis Cholelithiasis is also called gallstones. It is a kind of gallbladder disease. The gallbladder isan organ that stores a liquid (bile) that helps you digest fat. Gallstones may not cause symptoms (may be silent gallstones) until they cause a blockage, and then they can cause pain (gallbladder attack). Follow these instructions at home: ? Take [id number]-[id number] and prescription medicines only as told by [...] provider. Document Revised: 05/24/2018 Document Reviewed: 02/25/2017 [employer] Patient Education ? 2019 [employer].Kindred [phone] Note [facility] Clinical Discharge Summary PERSON INFORMATION Name LORRAINE Jr, LINO EDWARD Age 70 Years 1950 Sex MALE Language Azeri PCP HOLA IVLLAFUERTE Marital Status Med Service Swing Acct# Arrival 03/11/2021 16:55:00 Visit Reason COVID 19, WEAKNESS Acuity LOS 006 00:43 Address: [address] [place] [address] Comment: PROVIDER INFORMATION VITALS INFORMATION Vital Sign [...] Medication List: New Medications [facility], [address] [place] [address] [phone], [phone] apixaban (Eliquis 5 mg oral tablet) 1 [...] range between ( 1.3 and 2.9 ) [place] Abs#: 0.6 x103/mcL -- Normal range between ( 0.0 and 0.8 ) Auto Baso %: 1.2 % -- Normal range between ( 0.2 and 2.0 ) Auto [place] %: 10 % -- Normal range between [...] range between ( 0.2 and 0.8 ) [facility] Lab Order 03/17/2021 3:00 (more content not included)...[facility]* Diagnosis Status post insertion of drug eluting coronary artery stent Persistent atrial fibrillation (CMS/HCC) Atrial fibrillation Mixed hyperlipidemia Ischemic cardiomyopathy Other specified forms of chronic ischemic heart disease Primary hypertension Unspecified essential hypertension H/O non-ST elevation myocardial infarction (NSTEMI) Coronary artery disease involving red devil coronary artery of red devil heart without angina pectoris Class 3 severe obesity due to excess calories with body mass index (BMI) of 40.0 to 44.9 in adult, unspecified whether serious comorbidity present ([facility]) documented in this encounter [facility] Work Phone: Evaluation note* Diagnosis Non-healing surgical wound, subsequent encounter- Primary H/O umbilical hernia repair Irritant contact dermatitis due to other chemical products [facility] Diagnosis Irritant contact dermatitis due to other chemical products- Primary Non-healing surgical wound, subsequent encounter H/O umbilical hernia repair [facility] Diagnosis Irritant contact dermatitis due to other chemical products- Primary [facility]* Diagnosis Strangulated hernia of abdominal wall- Primary Skin infection Unspecified local infection of skin and subcutaneous tissue Morbid obesity due to excess calories ([facility]) [facility] Diagnosis Abdominal wall abscess at site of surgical wound- Primary [facility]* Diagnosis Strangulated hernia of abdominal wall- Primary [facility]* Diagnosis Non-healing surgical wound, initial encounter- Primary H/O umbilical hernia repair Abdominal wall abscess at site of surgical wound [facility] Diagnosis Non-healing surgical wound, subsequent encounter- Primary H/O umbilical hernia repair [facility] Diagnosis Non-healing surgical wound, subsequent encounter- Primary H/O umbilical hernia repair [facility] Diagnosis Non-healing surgical wound, subsequent encounter- Primary H/O umbilical hernia repair [facility]* Diagnosis Non-healing surgical wound, initial encounter- Primary Irritant contact dermatitis due to other chemical products [facility] Diagnosis Irritant contact dermatitis due to other chemical products- Primary Non-healing surgical wound, subsequent encounter [facility] Diagnosis Non-healing surgical wound, subsequent encounter- Primary [facility] N[facility]* The patient states he has been generally stable since the last visit. Comorbid Illnesses: hypertension and hyperlipidemia. * Symptoms: denies chest pain at rest, denies exertional chest pain, denies dyspnea, denies fatigue, stable exercise intolerance, denies palpitations, denies edema, denies orthopnea, resolved dizzinessand resolved orthostatic dizziness. * Disease Monitoring: [facility] 600 DO Work Phone: History of Present illness Narrative* The patient states he has been generally doing well since the last visit. Comorbid Illnesses: hypertension and hyperlipidemia. * Symptoms: denies chest pain at rest, denies exertional chest pain, denies dyspnea, stable fatigue, denies exercise intolerance, denies palpitations, denies edema, denies orthopnea, denies dizziness and denies orthostatic dizziness. * Associated symptoms: no syncope. * His symptoms do not limit his activities. * Disease Monitoring: The patient has had a weight loss. * Medications: the patient is adherent with his medication regimen. He denies medication side effects. [facility] 250 DO Work Phone: History of Present illness Narrative* Johnathan Howe, DO - 06/06/2023 10:50 AM EST Subjective Lino Peters is a 72 y.o. male Chief Complaint Follow-up Returns for follow-up, he is doing well, working at [employer] 4 hours a day 5 days a week. He has hadno cardiovascular events or complaints or nitrate usage or hospitalizations. He sustained high risk non-ST elevation [place] in July 2020, with high risk two- vessel coronary intervention of the proximal through mid LAD and proximal RCA and mid PLV branch x4 BARBARA total. Left ventricular function is 45 to 50% when measured immediately after [place]. He has paroxysmal A. fib, currently in [...] by mouth once daily at bedtime., Disp: ,Rfl: famotidine (Heartburn Relief, famotidine,) 10 mg tablet, [...] infarction (NSTEMI) 7. Coronary artery disease involving red devil coronary artery of red devil heart without angina pectoris 8. Class 3 severe obesity due to excess calories with body mass index (BMI) of 40.0 to 44.9 in adult, unspecified whether serious comorbidity present (CMS/HCC) Scribe Attestation By signing my name below, I, Juanita Domingo LPN , Scribe attest that this documentation has been prepared under the direction and in the presence of Pramod Howe DO. [facility] Work Phone: Instructions* Patient Instructions* Juanita Mercado LPN - 06/06/2023 10:50 AM [...] time of your visit. documented in [facility] encounterC[facility] Work Phone: InstructionsNot on filedocumented in this encounter [facility]ructionsNot on filedocumented in this encounter [facility] SystemInstructionsNot on filedocumented in this encounter [facility] SystemInstructionsNot on filedocumented in this encounter [facility] SystemInstructionsNot on filedocumented in this encounter [facility] SystemInstructionsNot on filedocumented in this encounter [facility] SystemReason for referral (narrative)* Consultation (Routine) - Pending ReviewSpecialtyDiagnoses / ProceduresReferred By ContactReferred To ContactWbeebe medical center Care Diagnoses Abdominal wall abscess at site of surgical wound Kerline Valadez PA [address] [facility] [address] [address] [facility] Wound Care Op [address] [place] [address] Referral IDStatusReasonStart DateExpiration DateVisits RequestedVisits [id number] Review Specialty Services Required / [employer] Summary Purpose Family History No Family History Records FoundUnknown Family Member Name Dates Details Heart problem: Mother Status:ActiveFamily history of hypertension: Mother(V17.49, Z82.49) Status:ActiveFamily history of diabetes mellitus: Mother(V18.0, Z83.3) Status:ActiveParkinson disease, symptomatic: Father Status:Active Unknown Family Member Name Dates Details Heart problem: Mother Status:ActiveFamily history of hypertension: Mother(V17.49, Z82.49) Status:ActiveFamily history of diabetes mellitus: Mother(V18.0, Z83.3) Status:ActiveParkinson disease, symptomatic: Father Status:Active Unknown Family Member Name Dates Details Heart problem: Mother Status:ActiveFamily history of hypertension: Mother(V17.49, Z82.49) Status:ActiveFamily history of diabetes mellitus: Mother(V18.0, Z83.3) Status:ActiveParkinson disease, symptomatic: Father Status:Active Unknown Family Member Name Dates Details Heart problem: Mother Status:ActiveFamily history of hypertension: Mother(V17.49, Z82.49) Status:ActiveFamily history of diabetes mellitus: Mother(V18.0, Z83.3) Status:ActiveParkinson disease, symptomatic: Father Status:Active Unknown Family Member Name Dates Details Heart problem: Mother Status:ActiveFamily history of hypertension: Mother(V17.49, Z82.49) Status:ActiveFamily history of diabetes mellitus: Mother(V18.0, Z83.3) Status:ActiveParkinson disease, symptomatic: Father Status:Active Unknown Family Member Name Dates Details Heart problem: Mother Status:ActiveFamily history of hypertension: Mother(V17.49, Z82.49) Status:ActiveFamily history of diabetes mellitus: Mother(V18.0, Z83.3) Status:ActiveParkinson disease, symptomatic: Father Status:Active Advance Directives No Advanced Directives Records Found Date ActivatedDate InactivatedComments02/20/2024 4:53 PM02/28/2024 7:20 PMDate ActivatedDate InactivatedComments03/09/2021 11:25 PM03/11/2021 6:45 PMDate ActivatedDate InactivatedComments02/20/2024 4:53 PMDate ActivatedDate Inactivated Comments02/20/2024 4:53 PM02/28/2024 7:20 PMDate ActivatedDate InactivatedComments 03/09/2021 11:25 PM03/11/2021 6:45 PM Chief Complaint * I am feeling better since I got out of hospital * LINO PETERS is being seen for atrial fibrillation, coronary artery disease, cardiomyopathy and dyslipidemia. * I am feeling better since I got out of hospital * LINO PETERS is being seen for atrial fibrillation, coronary artery disease, cardiomyopathy and dyslipidemia. * LINO PETERS is being seen for a 6 month follow-up of. * Patient is a 70-year-old gentleman who returns for 6-month follow-up he is doing well he has no cardiovascular complaints or symptoms. He continues working 5 days weekly at [email or web address]. * He sustained non-ST elevation NY with two-vessel revascularization of the LAD and [...] 6 months with appropriate laboratories * LINO PETERS is being seen for an annual follow-up of Overdue. * Patient is 71-year-old gentleman returns for follow-up, he unfortunately has discontinued all of his medications. He sustained high risk non-ST elevation NY in July 2020, with high risk two-vessel coronary intervention of the proximal through mid LAD and proximal RCA and mid PLV branch x4 BARBARA total. Left ventricular function is 45 to 50% when measured immediately after NY. * He has paroxysmal A. fib, he [...] * Routine f/u: 'doing fine' * LINO PETERS is being seen for a 6 month follow-up of atrial fibrillation, coronary artery disease,dyslipidemia and hypertension. * Patient presents to the office ambulatory with steady gait. Last evaluated in clinic Dr. Howe April 2022. At that time, patient presented off all cardiovascular medication and losartan, Eliquis, Lopressor and Lipitor were resumed. * Patient reports a August 2022 hospitalization due to pneumonia and COPD, was not followed by [facility] cardiology. He reports being told he was in atrial fibrillation throughout the hospitalization and wasdischarged 'when heart rates were better'. There were no changes to cardiovascular regimen at time of discharge. * Patient continues to work full-time at [employer]. He denies any type of routine exercise. [...] need for medication changes. Reason for Referral SpecialtyDiagnoses / ProceduresReferred By ContactReferred To Contact Diagnoses Persistent atrial fibrillation ([facility]) Procedures ECG 12 Lead Johnathan Howe, DO [address] [facility] [address] [place] [address] Referral IDStatusReasonStart DateExpiration DateVisits RequestedVisits [id number] [id number] / ProceduresReferred By ContactReferred To ContactCardiology Diagnoses Status post insertion of drug eluting coronary artery stent Persistent atrial fibrillation (CMS/HCC) Mixed hyperlipidemia Ischemic cardiomyopathy Primary hypertension Coronary artery disease involving red devil coronary artery of red devil heart without angina pectoris Procedures Follow Up In Cardiology Johnathan Howe, DO [address] [facility] [address] [place] [id number] Johnathan Howe, DO [address] [facility] [address] [place] [address] Referral IDStatusReasonStart DateExpiration DateVisits RequestedVisits [id number]/13/202312/12/202411 Additional Source Comments (unrecognized sect ion and content) No Status Records FoundNo Status Records FoundNo Status Records FoundNo Status Records FoundNo Status Records FoundNo Status Records FoundNo Status Records FoundNo Status Records FoundNo Status Records Found INFORMATION SOURCE (unrecogn ized section and content) DATE CREATED AUTHOR 11/30/2020 [facility] DATE CREATED AUTHOR AUTHOR'S ORGANIZ ATION 03/28/2021 [facility] DATE CREATED AUTHOR AUTHOR'S ORGANIZ ATION 08/08/2021 [facility] DATE CREATED AUTHOR AUTHOR'S ORGANIZ ATION 09/29/2022 [facility] DATE CREATED AUTHOR AUTHOR'S ORGANIZ ATION 12/06/2022 [facility] DATE CREATED AUTHOR AUTHOR'S ORGANIZ ATION 12/06/2022 [employer] DATE CREATED AUTHOR AUTHOR'S ORGANIZ ATION 06/09/2023 [facility] DATE CREATED AUTHOR AUTHOR'S ORGANIZ ATION 02/29/2024 [facility] DATE CREATED AUTHOR AUTHOR'S ORGANIZ ATION 10/16/2024 [facility] Reason for Visit (unrecogniz ed section and content) ReasonCommentsFollow-ct3nPhozlvmfgUsfgatkbl / ProceduresReferred By Contact Referred To Contact Diagnoses Persistent atrial fibrillation (CMS/HCC) Procedures ECG 12 Lead Johnathan Howe, DO [address] [facility] [address] [place] [address] Referral IDStatusReasonStart DateExpiration DateVisits RequestedVisits [id number] Check SpecialtyDiagnoses / ProceduresReferred By ContactReferred To ContactWound Care Diagnoses Abdominal wall abscess at site of surgical wound Kerline Valadez PA [address] [facility] [address] [address] Phone: tel: fax: [facility] [address] [place] [address] Phone: tel: fax: Referral IDStatusReasonStart DateExpiration DateVisits RequestedVisits [id number] Review Specialty Services Required [id number]-ss ExamAbdominal Wall HerniaSpecialty Diagnoses / ProceduresReferred By ContactReferred To ContactGeneral Surgery Diagnoses Hernia of abdominal wall Procedures AR OFFICE OUTPATIENT VISIT 60-74 MINS HIGH MDM AMB REFERRAL TO GENERAL SURGERY Elaine Beltran, DO [address] [place] [address] Randy Moreau MD [address] [facility] [address] [place] [address] Referral IDStatusReasonStart DateExpiration DateVisits RequestedVisits [id number] Review/[id number] DateComments Order Ntxppedmjqhuj43/29/2024ReasonOnset DateCommentslow heart rate on telemetry 4ReasonOnset DateCommentsAnti Ychixwyaiyj35/29/2024ReasonOnset Date Commentswound vac home care kldggz974ReasonOnset DateCommentsWound Wqieuauqgn90/27/2024ReasonCommentsEstablish CareSpecialtyDiagnoses / Procedures Referred By ContactReferred To ContactWound Care Diagnoses Abdominal wall abscess at site of surgical wound Kerline Valadez PA [address] [place] [address] [facility] Wound Care Op [address] [place] [address] Ref[facility]StatusRe[facility] DateExpiration DateVisits RequestedVisits [id number] Review Specialty Services Required [id number] CheckSpecialtyDiagnoses / Procedures Referred By ContactReferred To ContactWound Care Diagnoses Abdominal wall abscess at site of surgical wound Kerline Valadez PA [address] [place] [address] Phone: tel: fax: [facility] [address] [place] [address] Phone: tel: fax: Referral IDStatusReEl[facility] Hospital DateExpiration DateVisits RequestedVisits [id number] Review Specialty Services Required [id number] CheckSpecialtyDiagnoses / Procedures Referred By ContactReferred To ContactWound Care Diagnoses Abdominal wall abscess at site of surgical wound Kerline Valadez PA [address] [place] [address] Phone: tel: fax: [facility] [address] [place] [address] Phone: tel: fax: Referral IDStatusReasonStart DateExpiration DateVisits RequestedVisits [id number] Review Specialty Services Required [id number] CheckSpecialtyDiagnoses / Procedures Referred By ContactReferred To ContactWound Care Diagnoses Abdominal wall abscess at site of surgical wound Kerline Valadez PA [address] [facility] [place] [address] Phone: tel: fax: [facility] W[facility] [address] [place] [address] Phone: tel: fax: Referral IDStatusReasonStart DateExpiration DateVisits RequestedVisits [id number] Review Specialty Services Required Care Teams (unrecognized sec tion and content) Team MemberRelationshipSpecialtyStart End Hola Villafuerte MD [facility] [place] [address] PCP - General06/25/99Team MemberRelationshipSpecialtyStart End Date Hola Villafuerte MD PCP - GeneralFamily Medicine11/03/20Team MemberRelationshipSpecialtyStart End Hola Villafuerte MD PCP - GeneralFamily Medicine11/03/20Team MemberRelationshipSpecialtyStart End Date Hola Villafuerte MD PCP - GeneralFamily Medicine11/03/20Team MemberRelationshipSpecialtyStart DateEnd Date Hola Villafuerte MD PCP - GeneralFamily Medicine11/03/20Team MemberRelationshipSpecialtyStart DateEnd Date Hola Villafuerte MD PCP - GeneralFamily Medicine11/03/20Team MemberRelationshipSpecialtyStart DateEnd Date Hola Villafuerte MD PCP - Generalmily Medicine11/03/20Team MemberRelationshipSpecialtyStart DateEnd Date Hola Villafuerte MD PCP - Generalmily Medicine11/03/20Team MemberRelationshipSpecialtyStart DateEnd Date Hola Villafuerte MD PCP - Generalmily Medicine11/03/20Team MemberRelationshipSpecialtyStart DateEnd Date Hola Villafuerte MD PCP - GeneralFamily Medicine11/03/20Team MemberRelationshipSpecialtyStart DateEnd Date Hola Villafuerte MD PCP - GeneralFamily Medicine11/03/20Team MemberRelationshipSpecialtyStart DateEnd Date Hola Villafuerte MD PCP - GeneralFamily Medicine11/03/20Team MemberRelationshipSpecialtyStart DateEnd Date Hola Villafuerte MD [facility]11/03/20Te MemberRelationshipSpecialtyStart DateEnd Date Hola Villafuerte MD [facility]11/03/20Te MemberRelationshipSpecialtyStart DateEnd Date Hola Villafuerte MD [facility]11/03/20Te MemberRelationshipSpecialtyStart DateEnd Date Hola Villafuerte MD [facility]11/03/20Te MemberRelationshipSpecialtyStart DateEnd Hola Villafuerte MD [facility]11/03/20 FOR RECORDS PERTAINING TO PATIENTS WHO ARE [...] BE BASED ON THE PRIMARY CLINICAL RECORDS. [facility]. provides no warranty or guarantee of the accuracy or completeness of information in this document.
--- OUTSIDE RECORDS SUMMARY | 2025-05-18 19:43 | XMS_ITS | Clinical Summary ---
Author Organization [facility] Address [address] [place] [address] Care Team Providers Care Cotton Picker Operator Name Role Phone Unavailable Primary Care Provider Unavailabl e Social History Tobacco UseTypesPacks/DayYears UsedDateSmoking Tobacco: Never AssessedUT Safety & EnvironmentAnswerDate RecordedFear of Current or Ex-PartnerNot on file 08/16/2023Emotionally AbusedNot on file08/16/2023hysically AbusedNot on file 08/16/2023Sexually AbusedNot on file08/16/2023hysically or Sexually AbusedNot on file08/16/2023Sex and Gender InformationValueDate RecordedSex Assigned at BirthNot on fileLegal UixOjsu6112/21/2021 10:22 PM EDTGender IdentityNot on file Sexual OrientationNot on file Plan of Treatment Health MaintenanceDue DateLast DoneCommentsCT Erjdxczkqxci1950Colonoscopy 1950olorectal Cancer Ukpqnxrff1951FIT-DNA1950FIT1950 FOBT1950Medicare Annual Wellness (AWV)1950 9387Nphfiiuejjaam1950 Depression Sgrunbuks68/19/1963Adult Dezfqct1906/12/1973Pneumococcal Vaccine: 50+ Years (1 of 1 - PCV)2001Zoster Vaccines (1 of 2)2001Fall Risk Etxgmtbxa95/19/2016COVID-19 Vaccine (1 - 2024- season)2025Influenza Vaccine (#1)2025HIB VaccinesAged OutNo longer eligible based on patient's age to complete this topicHPV VaccinesAged OutNo longer eligible based on patient's age to complete this topicIPV VaccinesAged OutNo longer eligible based on patient's age to complete this topicMeningococcal B VaccineAged OutNo longer eligible based on patient's age to complete this topicMeningococcal VaccineAged OutNo longer eligible based on patient's age to complete this topicRotavirus VaccinesAged OutNo longer eligible based on patient's age to complete this topic Insurance * Guarantor: Lino Peña EAccount TypeRelation to PatientDate of BirthPhone Billing AddressPersonal/PbrusuQjbd[address] [facility] [address] [place] [address]
--- OUTSIDE RECORDS SUMMARY | 2025-05-18 19:43 | XMS_ITS | Clinical Summary ---
Author Organization [facility] Address [address] [place] [address] Care Team Providers Care Breaker Boss Name Role Phone Fabio Herrera MD Primary Care Provider [phone] Allergies No known active allergies Medications MedicationSigDispense QuantityRefillsLast FilledStart DateEnd DateStatus apixaban (Eliquis) 5 MG tablet Take 5 mg by mouth in the morning and 5 mg in the evening.06/06/2023ctive aspirin 81 MG EC tablet Take 81 mg by mouth 1 (one) timeActive atorvastatin (Lipitor) 80 MG tablet Take 80 mg by mouth at klfnawt0306/06/2023ctive metoprolol tartrate (Lopressor) 25 MG tablet Take 25 mg by mouth in the morning and 25 mg in the evening. Take with meals. 12/12/2023ctive mupirocin (Bactroban) 2 % ointment Apply 2 application topically in the morning and 2 application before bedtime. 01/10/2024ctive Social History Tobacco UseTypesPacks/DayYears UsedDateSmoking Tobacco: Never AssessedSex and Gender InformationValueDate RecordedSex Assigned at BirthNot on fileLegal Sex Male01/14/2024 9:44 AM EDTGender IdentityNot on fileSexual OrientationNot on file Last Filed Vital Signs Vital SignReadingTime TakenCommentsBlood Pressure--Vxmok1663/14/2024 2:34 PM EDT Temperature--Respiratory Vuhj625202/06/2024 2:34 PM EDTOxygen Lxsftgxitu83% 02/06/2024 2:34 PM EDTInhaled Oxygen Concentration--Qwgijw912 kg (280 lb) 02/06/2024 2:34 PM QAQKpvqvz519.1 cm (5' 5 )02/06/2024 2:34 PM EDTBody Mass Index46.5908 2:34 PM EDT Plan of Treatment Not on file Insurance * Guarantor: Jeff Peña TypeRelation to PatientDate of BirthPhone Billing AddressPersonal/DlcaqaByqb1950 [address] [place] [address] Care Teams Team MemberRelationshipSpecialtyStart Date Fabio Herrera MD PCP - GeneralFamily Medicine01/14/24
--- OUTSIDE RECORDS SUMMARY | 2025-05-18 19:43 | XMS_ITS | Clinical Summary ---
Author Organization [facility] Address [address] [place] [address] Phone Care Team Providers Care Farm Boss Name Role Phone Fabio Herrera MD Primary Care Provider [phone] Allergies No known active allergies Medications MedicationSigDispense QuantityRefillsLast FilledStart DateEnd DateStatus aspirin 81 mg EC tablet Take 1 tablet (81 mg) by mouth 2 times a week.Active famotidine (Heartburn Relief, famotidine,) 10 mg tablet Take by mouth.Active apixaban (Eliquis) 5 mg tablet Indications:Persistent atrial fibrillation (Multi)Take 1 tablet (5 mg) by mouth 2 times a day. 180 tablet ctive atorvastatin (Lipitor) 80 mg tablet Indications:Mixed hyperlipidemiaTake 1 tablet (80 mg) by mouth once daily at bedtime. 90 tablet ctive losartan (Cozaar) 25 mg tablet Indications:Primary hypertensionTake 1 tablet (25 mg) by mouth once daily. 90 tablet ctive metoprolol tartrate (Lopressor) 25 mg tablet Indications:Persistent atrial fibrillation (Multi)Take 0.5 tablets (12.5 mg) by mouth 2 times a day. 90 tablet ctive Active Problems ProblemNoted DateDiagnosed IljjVclzmvx83/13/2023oronary artery disease involving [place] coronary artery of [place] heart without angina pectoris 06/05/2023Echocardiogram rqmwoyle24/12/2023H/O non-ST elevation myocardial infarction (NSTEMI)06/05/2023HLD (hyperlipidemia)06/05/2023Mixed hyperlipidemia 06/05/2023HTN (hypertension)06/05/2023Ischemic gzemaqnvhbifqu54/12/2023 Persistent atrial oyingbyfymax76/12/2023VC (premature ventricular contraction) 06/05/2023Status post insertion of drug eluting coronary artery stent06/05/2023 Qmqeclbajysadk26/12/2023 Social History Tobacco UseTypesPacks/DayYears UsedDateSmoking Tobacco: NeverSmokeless Tobacco: NeverAlcohol UseStandard Drinks/WeekCommentsNever0 (1 standard drink = 0.6 oz pure alcohol)Sex and Gender InformationValueDate RecordedSex Assigned at Not on fileLegal DfnKfmp41/26/2022 4:38 AM ESTGender IdentityNot on fileSexual OrientationNot on file Last Filed Vital Signs Vital SignReadingTime TakenCommentsBlood Krvcoqvi361/9406/06/2023 10:11 AM EST Zkzrd455706/06/2023 10:11 AM ESTTemperature--Respiratory Rate--Oxygen Saturation-- Inhaled Oxygen Concentration--Rqgurv690 kg (256 lb)06/06/2023 10:11 AM ESTHeight 165.1 cm (5' 5 )06/06/2023 10:11 AM ESTBody Mass Index42.6108/07/2022 10:11 AM EST Plan of Treatment Health MaintenanceDue DateLast DoneCommentsCT Vgxognbeeqqu1951olonoscopy 1951olorectal Cancer Lhrnreqqt1951FIT-DNA (Cologuard)1950FIT 1951ipid Panel1951Medicare Annual Wellness Visit (AWV)1950 Pggtxugozldsd1951MMR Vaccines (1 of 1 - Standard series)1951 Hepatitis C Qlywizwqk29/19/1969Pneumococcal Vaccine (1 of 2 - PCV)1970 DTaP/Tdap/Td Vaccines (1 - Tdap)1973RSV High Risk: (Elderly (60+) or Population) (1 - Risk 50-74 years 1-dose series)2001Zoster Vaccines (1 of 2)06/12/20016787Rrlpaphanqaerz55/25//reatinine Level /otassium Level/01/2021Influenza Vaccine (#1) 509/, 08/27/2020, 08/17/2020OVID-19 Vaccine (2024- season)2025HIB VaccinesAged OutNo longer eligible based on patient's age to complete this topicHPV VaccinesAged OutNo longer eligible based on patient's age to complete this topicHepatitis A VaccinesAged OutNo longer eligible based on patient's age to complete this topicHepatitis B VaccinesAged OutNo longer eligible based on patient's age to complete this topicIPV VaccinesAged OutNo longer eligible based on patient's age to complete this topicMeningococcal VaccineAged OutNo longer eligible based on patient's age to complete this topic Rotavirus VaccinesAged OutNo longer eligible based on patient's age to complete this topic Procedures Procedure NamePriorityDate/TimeAssociated DiagnosisCommentsELECTROLYTE PANEL Vegidra0008/30/2020 3:00 PM EST PARRTGYMVHNepqzto00/08/2021 3:00 PM EST EJOOVKWMLCKODQ36/25/2021 from Last 3 Months or Most Recently Relevant to Health Maintenance Results * Creatinine (08/30/2020 3:00 PM EST)ComponentValueRef RangeTest MethodAnalysis TimePerformed AtPathologist SignatureCreatinine1.110.50 - 1.30 mg/dLADVENTHEALTH CELEBRATION LABGLOMERULAR FILTRATION RATE-NON >60>60 mL/min/1.04m4ZBODTRADVENTHEALTH CELEBRATION LABGLOMERULAR FILTRATION RATE->60>60 mL/min/1.70o2EIPCHHADVENTHEALTH CELEBRATION LABComment: CALCULATIONS OF ESTIMATED GFR ARE PERFORMED USING THE MDRD STUDY EQUATION FOR THE IDMS-TRACEABLE CREATININE METHODS. CLIN CHEM 2007;53:766-72 Specimen (Source)Anatomical Location / LateralityCollection Method / Volume Collection TimeReceived Time08/30/2020 3:00 PM EST08/30/2020 6:28 PM EST Narrative Authorizing ProviderResult TypeResult StatusMaureen Velez CUSTOMER SERVICE ADVISOR-CNPLAB BLOOD ORDERABLESFinal ResultPerforming OrganizationAddressCity/State/ZIP CodePhone Number [facility] * Electrolyte Panel (08/30/2020 3:00 PM EST)ComponentValueRef RangeTest Method Analysis TimePerformed AtPathologist ZeiiconrvBapiqw981896 - 145 mmol/[facility] LABPotassium4.33.5 - 5.3 mmol/[facility] Yalnqeer41038 - 107 mmol/[facility] CDBEctfsyzxcty1223 - 32 mmol/L [facility] LABAnion Umf9809 - 20 mmol/[facility] LAB Specimen (Source)Anatomical Location / LateralityCollection Method / Volume Collection TimeReceived Time08/30/2020 3:00 PM EST08/30/2020 6:28 PM EST Narrative Authorizing ProviderResult TypeResult StatusMaureen Velez CUSTOMER SERVICE ADVISOR-CNPLAB BLOOD ORDERABLESFinal ResultPerforming OrganizationAddressCity/State/ZIP CodePhone Number [facility] * ECHOCARDIOGRAM (08/19/2020) Narrative 08/19/2020 Ordered by an unspecified provider. Authorizing ProviderResult TypeResult StatusOnbase ConversionCV ECHO PROCEDURES Final Result from Last 3 Months or Most Recently Relevant to Health Maintenance Insurance * Guarantor: Jeff Peña TypeRelation to PatientDate of BirthPhone Billing AddressPersonal/LfisntMkiz1950 [address] [place] [address] Care Teams Team MemberRelationshipSpecialtyStart DateEnd Date Fabio Herrera MD [address] [place] [address] PCP - General06/25/99
--- OUTSIDE RECORDS SUMMARY | 2025-05-18 19:43 | XMS_ITS | Clinical Summary ---
Author Organization [facility] Address [id number] [address] [place] [address] Care Team Providers Care Supervisor [employer] Name Role Phone Fabio Herrera MD Primary Care Provider [phone] Allergies No known active allergies Medications MedicationSigDispense QuantityRefillsLast FilledStart DateEnd DateStatus metoprolol tartrate (LOPRESSOR) 25 mg tablet Take 1 tablet (25 mg total) by mouth in the morning and 1 tablet (25 mg total) before bedtime.Active acetaminophen (TYLENOL EXTRA STRENGTH) 500 mg tablet Take 2 tablets (1,000 mg total) by mouth every 6 (six) hours as needed for pain. 30 tablet 02/28/2024ctive Active Problems ProblemNoted DateDiagnosed DateNon-healing surgical wound03/28/2024Morbid obesity due to excess jeiklwpw08/29/2024Strangulated hernia of abdominal wall 02/21/2024Incarcerated ventral uczgqi5402/21/2024Skin jvkwigkgo65/28/2024OPD (chronic obstructive pulmonary disease)06/25/2023Hypertensive heart disease with heart kbuatcj5406/25/2023Long term (current) use of xgbvpqxfpjycbm42/01/2024 Encounter for therapeutic drug level /01/2024Heart failure, lzpqaxbfyyc92/01/2024Essential bbzumbncxjsj63/12/2023iarrhea of infectious xhyfty2503/10/2021ongstanding persistent atrial zteutijzstcn27/16/2021oronary artery disease involving flandreau coronary pulepy5603/10/2021neumonia due to COVID- 19 virus03/09/2021 Resolved Problems ProblemNoted DateDiagnosed DateResolved DateLong term (current) use of jffezgytjbrats55trial jcpfvymyoqov04 Immunizations ImmunizationAdministration DatesNext DueInfluenza High Dose Preservative Free IM 08/27/2020Influenza, High-dose, Htkpjvlqxalz89/23/2021Influenza, Unspecified 03/14/2021 Social History Tobacco UseTypesPacks/DayYears UsedDateSmoking Tobacco: NeverSmokeless Tobacco: Never Tobacco Cessation:Counseling Given: Not Answered Alcohol UseStandard Drinks/WeekCommentsNot Currently0 (1 standard drink = 0.6 oz pure alcohol)[facility] UtilitiesAnswerDate RecordedIn the past 12 months has the electric, gas, oil, or water company threatened to shut off services in your home?No02/20/2024HQ-2AnswerDate RecordedTotal Idnie926RAPARE - TransportationAnswerDate RecordedIn the past 12 months, has lack of transportation kept you from medical appointments or from getting medications?No 02/20/2024In the past 12 months, has lack of transportation kept you from meetings, work, or from getting things needed for daily living?No02/20/2024 Housing InstabilityAnswerDate RecordedAre you worried or concerned that in the next two months you may not have stable housing that you own, rent or stay in as a part of a household?No02/20/2024hildcareAnswerDate RecordedChildcareUnknown 12/04/2018EmploymentAnswerDate EtdoxcmqWekiiziqoaAygckom95/12/2019Hunger ScreeningAnswerDate RecordedWithin the past 12 months we worried whether our food would run out before we got money to buy more.Never True10/15/2024Within the past 12 months the food we bought just didn't last and we didn't have money to get more.Never True10/15/2024Sex and Gender InformationValueDate RecordedSex Assigned at BirthNot on fileLegal SetFiof6201/28/2015 11:34 AM EDTGender Identity Not on fileSexual OrientationNot on file Last Filed Vital Signs Vital SignReadingTime TakenCommentsBlood Irrwczug410/7910/15/2024 9:34 AM EDT Noqef11926/23/2025 9:34 AM TIELimwuhwqqso78.4 ??C (97.5 ??F)10/15/2024 9:34 AM EDTRespiratory Pmhb640510/15/2024 9:34 AM EDTOxygen Sevnelpaqz466%03/02/2024 2:25 PM EDTInhaled Oxygen Concentration--Zueeif905.3 kg (252 lb)03/20/2024 11:22 AM OZVKjikix267.1 cm (5' 5 )03/20/2024 11:22 AM EDTBody Mass Index41.9303/20/2024 11:22 AM EDT Plan of Treatment Health MaintenanceDue DateLast DoneCommentsStatin Use: Mxkejdobqoqlfl1950 DTaP,Tdap and Td Vaccines (1 - Tdap)1970Zoster (Shingles) Vaccine (1 of 2) 2001RSV ( or age 60+ yrs) (1 - Risk 60-74 years 1-dose series) 2011Fall Risk Uhshydprn78/19/2016Depression Lxcmsiaml82/ Influenza Vszlcoe35/, 08/27/2020, 08/17/2020dult BMI Screening Tobacco Ghkzqjjqq97 Goals GoalPatient Goal TypeAssociated ProblemsRecent ProgressPatient-Stated?Author Home Saundra Fontenot, HATCHERY SUPERVISOR Note: Evaluation of progress towards goal: with home health/ [employer] for wound vac Medical Devices Not on file Insurance Advance Directives * Full Code (Latest Code Status on File) Date ActivatedDate InactivatedComments02/20/2024 4:53 PM02/28/2024 7:20 PM * Full Code Date ActivatedDate InactivatedComments03/09/2021 11:25 PM03/11/2021 6:45 PM Care Teams Team MemberRelationshipSpecialtyStart DateEnd Date Fabio Herrera MD PCP - GeneralFakyly Medicine11/03/20
[2025-05-18 19:52] LABS: Alanine Aminotransferase 25 U/L (16-63); Albumin Globulin Ratio 0.6; Albumin Level 2.7 g/dL (3.4-5.0); Alkaline Phosphatase 97 U/L (46-116); Anion Gap 6.6; Aspartate Amino Transferase 22 U/L (15-37); Basophils Abs Manual 0.00 10^3/uL (0.00-0.10); Basophils Percent Manual 0.0 % (0.2-2.0); Blood Urea Nitrogen 17.0 mg/dL (7.0-18.0); Calcium 8.7 mg/dL (8.5-10.1); Carbon Dioxide 31.3 mmol/L (21.0-32.0); Chloride 106 mmol/L (98-107); Eosinophils Absolute Manual 2.82 10^3/uL (0.00-0.70); Eosinophils Percent Manual 31.0 % (0.9-7.0); Estimated GFR (African America >60 (>=60 mL/min/1.73m^2); Estimated GFR (Non-African Ame >60 (>=60 mL/min/1.73m^2); Globulin 4.4 g/dL; Glucose 101 mg/dL (74-106); Lymphocytes Absolute Manual 0.72 10^3/uL (1.20-3.80); Lymphocytes Percent Manual 8.0 % (20.5-60.0); Monocytes Absolute Manual 0.45 10^3/uL (0.30-0.80); Monocytes Percent Manual 5.0 % (1.7-12.0); Potassium 3.9 mmol/L (3.5-5.1); Segmented Neut Absolute Manual 4.91 10^3/uL (1.4-6.5); Segmented Neutrophils % Manual 54.0 (43.0-75.0); Sodium 140 mmol/L (136-145); Total Protein 7.1 g/dL (6.4-8.2)
[2025-05-18 19:53] LABS: Atypical Lymphocytes % Manual 3.0 %; Atypical Lymphocytes Abs Man 0.27; Hypochromasia 2+
--- NOTE | 2025-05-18 19:54 | XR_ITS ---
[place] [id number] Patient Name: JOSE PETERS MRN: [id number] date: 1950 Sex: M Assigned Patient Location: ER Current Patient Location: Accession/Order Number: [id number] Exam Date: 05/18/2025 20:20 Report Date: 05/18/2025 21:29 At the request of: EZEQUIEL CHIANG MD Procedure: XR chest 1V PA CHEST: CLINICAL HISTORY: elevated BNP, LE swelling COMPARISON: 09/20/2022 Mildly enlarged cardiomediastinal silhouette. Mild perihilar congestion. Lungs are clear. No Effusion or pneumothorax. XR/XR chest 1V IMPRESSION: Negative acute pleural-parenchymal disease Impression dictated by: Seth Martinez M.D. 05/18/2025 9:29 PM Dictation Location: [place] [address] Electronically authenticated by: [id number] Y Date: 05/18/2025 21:29
[2025-05-18] MEDS: FUROSEMIDE 20 MG/2 ML VIAL IVP (20:45)
== END 2025-05-18 21:20 | disposition home or self-care (01) ==
PROVIDERS: Emergency Provider Emergency Medicine; PCP Family Medicine
DX: R60.0 Localized edema (principal); I48.0 Paroxysmal atrial fibrillation
CPT/HCPCS: 36415; 71045; 80053; 83880; 85007; 85027; 93005; 96365; 96375; 99285; J0696; J1938